=== PATIENT | female | born 1950 | race Caucasian/White ===

== ENCOUNTER → 2018-09-16 06:48 | Outpatient (CLI) | payer MEDICARE, OTHER, SELFPAY ==
--- NOTE | 2018-09-16 06:54 | ECHOCS_ITS ---
Reason For Study: Atypical Chest Pain Procedure This was a 2D Doppler, Color Flow transthoracic echocardiogram. The exam was of poor technical quality due to body habitus. The study was technically difficult. Contrast injection was performed. Exam performed in department. Left Ventricle Normal LV size. Left ventricular systolic function is normal. The estimated ejection fraction is 65 %. Diastolic function is indeterminate. No regional wall motion abnormalities noted. Right Ventricle Normal RV size. Normal systolic function. Atria Normal left atrium. Normal right atrium. No doppler evidence for ASD. Mitral Valve There is no mitral annular calcification. Normal mitral valve. Trivial mitral valve insufficiency. Tricuspid Valve Normal tricuspid valve. Trivial tricuspid valve insufficiency. Aortic Valve The aortic valve is not well visualized. Pulmonic Valve The pulmonic valve is not well visualized. Great Vessels The aortic root is not well visualized. Pericardium/Pleural No pericardial effusion. Medication 20 gauge I.V. with prn adaptor inserted into right arm. Diluted definity 6ml given slow IV push to enhance endocardial definition. MMode/2D Measurements & Calculations LVIDd: 3.8 cm IVSd: 1.6 cm LA dimension: 3.3 cm LVIDs: 2.6 cm LVPWd: 1.6 cm RVDd: 3.6 cm FS: 31.1 % LAV(MOD-sp4): 44.5 ml LA A4 area: 16.5 cm2 RA A4 area: 14.5 cm2 Time Measurements MV dec time: 0.22 sec Doppler Measurements & Calculations MV E max román: 67.2 cm/sec Lat Peak E' Román: 10.3 cm/sec Med Peak E' Román: 5.8 cm/sec MV A max román: 92.1 cm/sec E/E' lat: 6.5 E/E' med: 11.6 MV E/A: 0.73 MV V2 max: 105.9 cm/sec MV P1/2t max román: 95.3 cm/sec Ao V2 max: 112.6 cm/sec MV max P.5 mmHg MV P1/2t: 94.5 msec Ao max P.1 mmHg MV V2 mean: 55.4 cm/sec MV dec slope: 295.6 cm/sec2 Ao V2 mean: 74.4 cm/sec MV mean P.5 mmHg MVA(P1/2t): 2.3 cm2 Ao mean P.5 mmHg MV V2 VTI: 34.2 cm Ao V2 VTI: 25.8 cm LV V1 max: 85.3 cm/sec PA V2 max: 78.0 cm/sec LV V1 max P.9 mmHg LV V1 mean P.3 mmHg LV V1 mean: 52.3 cm/sec LV V1 VTI: 21.3 cm Interpretation Summary The study was technically difficult. Contrast injection was performed. Left ventricular systolic function is normal. The estimated ejection fraction is 65 %. Trivial mitral valve insufficiency. Trivial tricuspid valve insufficiency. Diastolic function is indeterminate. Ordering Physician: Lupe Calvo Referring Physician: Lupe Calvo Performed By: Mikey Danielle RCS
--- NOTE | 2018-09-16 15:50 | STRESSREP_ITS ---
Stress Test Report Date: 09/16/2018 Procedure: Exercise tolerance test/imaging study Indications: Chest pain Consent: Per the patient Procedure: The patient exercised on a Trevor protocol for 6 minutes completing Stage II achieving a peak heart rate of 153 bpm (98 % predicted maximal heart rate) with a peak blood pressure 7 mmHg and a peak MET capacity of 7 METs. The baseline ECG demonstrated sinus bradycardia. The peak exercise ECG demonstrated approximately 0.5-1.0 mm horizontal/upsloping ST segment depression in lead II with resolution towards baseline beginning less than 1 minute in recovery. There were no cardiac dysrhythmias pretest, during exercise, or recovery. The functional capacity was considered average. There was vague chest discomfort with spontaneous resolution in recovery. The examination was discontinued secondary to dyspnea. Impression: 1. Technically adequate (percent predicted maximal heart rate greater than 85%) exercise tolerance test 2. Peak exercise ECG M and straight and approximately 0.5-1.0 mm horizontal/upsloping ST segment depression in lead II with resolution towards baseline beginning less than 1 minute in recovery 3. There were no cardiac dysrhythmias pretest, during exercise, or recovery 4. Nuclear images pending Myocardial perfusion imaging study: Technique: The patient was injected with 14.2 mCi of technetium 99m Cardiolite and subsequently rest SPECT Cardiolite nuclear imaging was obtained in the horizontal long, vertical long, and short axis views. The patient exercised on a Trevor protocol for 6 minutes completing Stage II achieving a peak heart rate of 153 bpm (98 % predicted maximal heart rate) with a peak blood pressure 170/80 mmHg and a peak MET capacity of 7 METs. The patient was injected with 44.7 mCi of technetium 99m Cardiolite and subsequently stress SPECT Cardiolite nuclear imaging was obtained in the horizontal long, vertical long, and short axis views. A gated Cardiolite study at peak stress was obtained. Interpretation: Rest and stress SPECT Cardiolite nuclear imaging status post realignment, normalization, and attenuation correction, demonstrates the appearance at rest of diminished tracer uptake in portions of the mid to distal anterior, anterolateral, anteroseptal, and apical segments which appears to improve/normalize following stress. There is end systolic thickening and brightening. The gated Cardiolite study demonstrates myocardial thickening and inward wall motion. The reported LVEF is 70 %. Impression: 1. Rest and stress SPECT Cardiolite nuclear imaging demonstrate myocardial perfusion changes at rest which appear to improve/normalize following stress appearing compatible with shifting soft tissue attenuation/artifact with no myocardial perfusion changes considered diagnostic for associated stress-induced myocardial ischemia or previous myocardial injury/infarction. 2. The gated Cardiolite study reports an LVEF of 70 %. This note was generated with [employer] software. It may contain incorrect words, spelling, and punctuation that were not noted in checking the note before signing.
== END ==
PROVIDERS: Family Provider Internal Medicine; PCP Internal Medicine; Referring Provider Internal Medicine; Visit Provider Internal Medicine
DX: R07.89 Other chest pain (principal)
CPT/HCPCS: 78452; 93017; 93306; A9500; Q9957; A4216; C8929

== ENCOUNTER 2018-11-15 19:50 | Emergency (ER) | payer MEDICARE, OTHER, SELFPAY ==
[2018-11-15 19:51] VITALS: BP 166/89; PULSE 54; RESP 17; TEMP 36.6; O2SAT 96; BMI 40.9
[2018-11-15 20:54] LABS: Bacteria 0 SEEN /hpf (None Seen); Mucous, Urine 0 SEEN /hpf (<or=2+); Squamous Epithelial Cells - UA 0 SEEN /hpf (5-10); White Blood Cells 0 SEEN /hpf (0-5)
[2018-11-15 20:56] LABS: Color, Urine Red (Yellow); Glucose, Dipstick Normal (Normal); Ketone-Dipstick 5 mg/dl (Negative); Leukocyte Esterase-Dipstick 500 /ul (Negative); Nitrite-Dipstick Negative (Negative); Occult Blood-Urine 250 /ul (Negative); Protein-Dipstick 100 mg/dl (Negative); Specific Gravity, Urine 1.015 (1.002-1.030); Urine Bilirubin Dipstick Negative (Negative); Urine Clarity Cloudy (Clear); Urine Urobilinogen Normal (Normal); Urine pH 6.5 (5.0 - 8.0)
[2018-11-15 21:11] LABS: Red Blood Cells-Urine > 100 SEEN /hpf (0-5)
[2018-11-15] MEDS: Nitrofurantoin Macrocrystals 100 MG Capsule PO ×2 (21:52→22:12)
--- NOTE | 2018-11-15 22:04 | ED.VISSUMM ---
- ER Visit Summary Date of Service: 11/15/18 Chief Complaint: Blood in urine History of Present Illness: The patient is a 68 F presents to the emergency department blood in urine. Patient states that she had a little bit of suprapubic fullness today. She states she got home from work and felt the urge to urinate. She states when she did urinate, she noted some blood. States that she urinated 3 times and there was still blood. She feels like she cannot fully empty her bladder. She denies any fevers or chills. She denies any flank pain. She denies any nausea or vomiting. Physical Examination: Vital signs reviewed General: Well-nourished, well-developed Head: Normocephalic, atraumatic Eyes: Pupils equal and reactive, extraocular muscles intact Neck, supple, no lymphadenopathy Heart: Regular rate and rhythm Respiratory: No distress, clear bilaterally Abdomen: Soft, nontender, nondistended, no peritoneal signs Back: Nontender Extremities: Nontender, no edema, no cords Skin: Normal color no rash Neuro: Alert and oriented, no focal or lateralizing deficits Test Results: [] Emergency Department Course and Treatment: Urine was obtained in triage. The patient does have evidence of acute cystitis. There is not significant blood. I do feel that this is likely hemorrhagic cystitis. She has no flank pain. She is no fevers or chills. Culture was added. The patient will be treated with Macrobid. She was counseled concerning symptoms and reasons to return. She will be discharged home. Treatment Plan: [] Disposition: Discharge Impression: 1. Acute hemorrhagic cystitis This note was generated with [employer] dictation software. It may contain incorrect words, spelling, and punctuation that were not noted in review of the chart prior to signing ED Disposition - Plan for ED Patient: Chief Complaint: Complaint Instructions: ED UTI Cystitis Female Prescriptions: Nitrofurantoin Macrocrystals [Macrobid] 100 mg PO Q12 #14 cap Referrals: Lupe Calvo DO [Primary Care Provider] -
[2018-11-15 22:14] VITALS: PULSE 55; RESP 16
--- OUTSIDE RECORDS SUMMARY | 2019-02-17 06:30 | XMS RPT_ITS ---
:1950 Author Organization OHIP Care Team Providers Name Role Phone Lupe Calvo DO Attending Unavailable Kelly Mercedes MD Referring Unavailable Lupe Calvo DO Consulting Unavailable Lupe Calvo Primary Care Unavailable Anjum Shook Attending Unavailable Israel Grajeda Attending Unavailable Lupe Calvo Referring Unavailable Lupe Calvo Attending Unavailable Lupe Calvo Referring Unavailable Lupe Calvo Primary Care Unavailable Maggy Mehta Attending Unavailable Carolynn Srivastava Referring Unavailable Lupe Calvo Attending Unavailable Carolynn Srivastava Primary Care Unavailable Purpose Purpose PROBLEMS PROBLEMS DATE TYPE CONDITION / CODE ATTENDING STATUS SOURCE 12/14/2018 Unknown Z78.0 - Umesh Active Vanessa Asymptomatic [facility] menopausal state / Hospital Z78.0(ICD-10) Repository 12/14/2018 Unknown Z12.31 - Encounter Chang Calvo for screening [facility] mammogram for Hospital malignant neoplasm Repository of breast / Z12.31(ICD-10) 11/11/2018 Unknown R07.89 - Other [place], [place] Active [place] chest pain / Community R07.89(ICD-10) Hospital Repository 09/22/2018 Unknown E11.9 - Type 2 Janine, Active Vanessa diabetes mellitus [facility] without Hospital complications / Repository E11.9(ICD-10) 09/22/2018 Unknown L23.7 - Allergic Janine, Active Vanessa contact dermatitis [facility] due to plants, Hospital except food / Repository L23.7(ICD-10) 09/22/2018 Unknown I10 - Essential Janine Active Vanessa (primary) [facility] hypertension / Hospital I10(ICD-10) Repository PROCEDURES PROCEDURES No Procedure Records FoundVITAL SIGNS VITAL SIGNS No Vital Signs Records FoundRESULTS RESULTS SCREENING MAMM (CAD), Observed: 12/14/2018 Status: F Source: [place] BIL 10:06 AM [facility] HOSPITAL REPOSITORY [facility] Imaging Services [address] [place] [address] SCREENING MAMM (CAD), BILAT MR#: [id number] Acct: [id number] Name: KELLIE ALANIS Rep #: [id number] : 1950 F 68 From: Sergio Waite MD PCP: Carolynn Srivastava NP Status: REG CLI Study: SCREENING MAMM (CAD), BILAT Date of Exam: 12/14/18 Exam# [id number] Ordering Dr: Lupe Calvo DO MAMMOGRAPHY - BILATERAL SCREENING REASON FOR EXAM: Female, 68 years old. Routine annual screening examination. PERTINENT HISTORY: Mother with breast cancer. Remote left excisional breast biopsy. TECHNIQUE: Digital bilateral breast dhaval (3D mammographic acquisition) in the CC and MLO projections. 2-D mediolateral oblique (MLO) and craniocaudad (CC) views of both breasts were obtained. CAD: Full Field Digital Mammography with Computer Added Detection was performed. COMPARISON: No comparison mammograms available at this time. If any prior films become available, an addendum to this report can be generated. FINDINGS: Breast Composition: The breasts are almost entirely fatty. There are no dominant masses or suspicious calcifications. No other significant abnormalities are identified. BI/SCREENING MAMM (CAD), BILAT IMPRESSION: Negative screening mammogram. Yearly followup mammogram recommended. (A) ASSESSMENT CATEGORY: BIRADS Category 1: Negative. A letter regarding these results will be sent to the patient by the facility within 30 days. Approximately 10% of breast cancers are not detected by mammography. A normal mammogram should not delay biopsy of a clinically suspicious abnormality. [id number] Electronically Signed: Sergio Waite MD at 11:39 EST Tel [phone], Service support , CC: Carolynn Srivastava NP; Lupe Calvo DO Postdoctoral Research Fellow: Signed DEXA BONE DENSITY Observed: 12/14/2018 Status: F Source: [place] STUDY 10:06 AM [facility] REPOSITORY [facility] Imaging Services [address] [place] [address] Dexa Bone Density Study MR#: [id number] Acct: [id number] Name: KELLIE ALANIS Rep #: [id number] : 1950 F 68 From: Sergio Waite MD PCP: Carolynn Srivastava NP Status: REG CLI Study: Dexa Bone Density Study Date of Exam: 12/14/18 Exam# [id number] Ordering Dr: Lupe Calvo DO STUDY: DUAL ENERGY X-RAY ABSORPTIOMETRY / DXA REASON FOR EXAM: Female, 68 years old. Early menopause. Loss of height. TECHNIQUE: Bone Mineral Density (BMD) measurements of lumbar spine and bilateral hips were obtained. COMPARISON: None. FINDINGS: Lumbar Spine (L1-L4): g/cm2 (1.242) / T-score (0.4) / Z-score (2.0) Findings are suggestive of normal bone density with a low fracture risk. Left Femur Total: g/cm2 (0.907) / T-score (-0.8) / Z- score (0.4) Left Femoral Neck: g/cm2 (0.751) / T-score (-2.1) / Z- score (-0.6) Right Femur Total: g/cm2 (0.972) / T-score (-0.3) / Z- score (1.0) Right Femoral Neck: g/cm2 (0.783) / T-score (-1.8) / Z-score (10.3) BD/Dexa Bone Density Study IMPRESSION: The patient is considered osteopenic as outlined below according to World Amadeo Organization (WHO) criteria with a moderate fracture risk. Reference Information: The T-score is the number of standard deviations above or below the standard which is normal for young adults at their peak bone mineral density. The World Health Organization (WHO) interprets the T-scores as follows: Above -1 Normal bone density Between -1 and -2.5 Osteopenia Equal to / or below -2.5 Osteoporosis As a practical clinical guideline, osteopenia may be graded as follows: Mild -1 through -1.5 Moderate -1.6 through -2.0 Severe -2.1 through -2.4 The Z-score is the number of standard deviations above or below age-matched controls. A Z-score of less than -1.5 would be considered abnormal. References: 1. NIH Osteoporosis and Related Bone Diseases http://www.osteo.org 2. International Society for Clinical Densitometry http://www.iscd.org 3. National Osteoporosis Foundation http://www.nof.org Electronically Signed: Sergio Waite MD at 15:52 EST Tel [phone], Service support , CC: Carolynn Srivastava SECURITY SPECIALIST; Lupe Calvo DO Postdoctoral Research Fellow: Signed EMERGENCY DEPARTMENT Observed: 11/15/2018 Status: F Source: [place] SUMMARY 10:39 PM [facility] REPOSITORY [facility] Medical Records Department [address] [place] [address] Emergency Department Summary 11/15/18 2204 MR#: [id number] Acct: [id number] Name: KELLIE ALANIS Rep #: [id number] : 1950 68 From: Anjum Shook MD PCP: Lupe Calvo DO Status: DEP ER - ER Visit Summary Date of Service: 11/15/18 Chief Complaint: Blood in urine History of Present Illness: The patient is a 68 F presents to the emergency department blood in urine. Patient states that she had a little bit of suprapubic fullness today. She states she got home from work and felt the urge to urinate. She states when she did urinate, she noted some blood. States that she urinated 3 times and there was still blood. She feels like she cannot fully empty her bladder. She denies any fevers or chills. She denies any flank pain. She denies any nausea or vomiting. Physical Examination: Vital signs reviewed General: Well-nourished, well-developed Head: Normocephalic, atraumatic Eyes: Pupils equal and reactive, extraocular muscles intact Neck, supple, no lymphadenopathy Heart: Regular rate and rhythm Respiratory: No distress, clear bilaterally Abdomen: Soft, nontender, nondistended, no peritoneal signs Back: Nontender Extremities: Nontender, no edema, no cords Skin: Normal color no rash Neuro: Alert and oriented, no focal or lateralizing deficits Test Results: [] Emergency Department Course and Treatment: Urine was obtained in triage. The patient does have evidence of acute cystitis. There is not significant blood. I do feel that this is likely hemorrhagic cystitis. She has no flank pain. She is no fevers or chills. Culture was added. The patient will be treated with Macrobid. She was counseled concerning symptoms and reasons to return. She will be discharged home. Treatment Plan: [] Disposition: Discharge Impression: 1. Acute hemorrhagic cystitis This note was generated with Web and Rank dictation software. It may contain incorrect words, spelling, and punctuation that were not noted in review of the chart prior to signing ED Disposition - Plan for ED Patient: Chief Complaint: Complaint Instructions: ED UTI Cystitis Female Prescriptions: Nitrofurantoin Macrocrystals [Macrobid] 100 mg PO Q12 #14 cap Referrals: Lupe Calvo, DO [Primary Care Provider] - What to do if you have Problems For any increased pain, shortness of breath, bleeding, nausea or vomiting, chest pain, or any unexpected problems, contact your Primary Care Provider. Call [facility] ([phone]) or report to the closest Emergency Room. Call 911 if necessary. 11/15/18 7310 <Electronically signed by Anjum Shook MD> Date Anjum Shook MD Cosigner Signature (If Indicated): Date CC: Lupe Calvo DO URINALYSIS, COMPLETE Collected: 11/15/2018 Status: F Source: [place] 8:44 PM [facility] REPOSITORY Order Comment: Order Date: 11/15/18 COLOR OF URINE MAY AFFECT DIPSTICK RESULTS. How was Urine Obtained? CLEAN CATCH TYPE CODE TESTS RESULT OUT OF RANGE REFERENCE UNITS LAB L400.3000 Yellow COLOR Normal Red LAB L400.3050 Clear Normal CLARITY Cloudy LAB L400.3200 Normal mg/dl Normal GLUCOSE, UR Normal LAB L400.3300 Negative mg/dL Normal BILIRUBIN URINE Negative LAB L400.3400 Negative mg/dl High 5 KETONE UR LAB L400.3465 1.002-1.030 Normal SP.GR. DIPSTX 1.015 LAB L400.3550 5.0 - 8.0 pH UR Normal 6.5 LAB L400.3600 Negative mg/dl High PROT DIPSTX 100 LAB L400.3700 Normal mg/dl Normal UROBILI Normal LAB L400.3750 Negative Normal NITRITE UR Negative LAB L400.3780 Negative /ul High OCCULT BLOOD-UR 250 LAB L400.3800 Negative /ul High LEUK ESTERASE 500 LAB L400.4050 0-5 /hpf WBC 0 Normal SEEN LAB L400.4100 0-5 /hpf > Normal RBC-UA 100 SEEN Result Comment: Microscopic field is filled. Other elements may be obscured. LAB L400.4150 5-10 /hpf Normal SQUAM EPI 0 SEEN LAB L400.4300 None Seen /hpf Normal BACTERIA 0 SEEN LAB L400.4350 <or=2+ /hpf Normal MUCUS, URINE 0 SEEN Performed By: #### L400.0001 #### [facility] [address] [place], [place], [id number] Observed: 11/15/2018 Status: F Source: [place] CULTURE, URINE 8:44 PM [facility] REPOSITORY Order Date: 11/15/18 Urine Culture ORGANISM 1: Presumptive E. coli [place] Count >100,000 Presumptive E. coli: REACTION Amoxacillin/Clavulanic Acid $ 4 S Ampicillin $ >=32 R Ampicillin/Sulbactam $ 16 I Cefazolin $ <=4 S Cefepime $ <=1 S Ceftriaxone $ <=1 S Ciprofloxacin $ <=0.25 S ESBL - Ertapenim $$$ <=0.5 S Gentamicin $ >=16 R Imipenem *NF <=0.25 S Levofloxacin $ <=0.12 S Nitrofurantoin $ <=16 S Piperacillin/Tazobactam $$ <=4 S Tobramycin $ 4 S Trimethoprim/Sulfametho $ >=320 R (NF) indicates non-formulary drug at [facility]. Approval by Infectious Disease Specialist required before non-formulary drugs may be ordered and/or dispensed. Performed By: #### M100.0650 #### [facility] [address], [address] ECHO, COMPLETE W/ Observed: 09/16/2018 Status: F Source: [place] CONTRAST 9:17 PM [facility] REPOSITORY [facility] Cardiovascular [place] [address] Echo Complete W/ Contrast 09/16/18 0846 MR#: [id number] Acct: [id number] Name: KELLIE ALANIS Rep #: [id number] : 1950 67 From: Israel Grajeda MD Attending Dr: Lupe Calvo DO Status: REG CLI Ordering Dr: Lupe Calvo DO Date: 09/16/18 Location: CVS Sex: F C Admitted: Reason For Study: Atypical Chest Pain Procedure This was a 2D Doppler, Color Flow transthoracic echocardiogram. The exam was of poor technical quality due to body habitus. The study was technically difficult. Contrast injection was performed. Exam performed in department. Left Ventricle Normal LV size. Left ventricular systolic function is normal. The estimated ejection fraction is 65 %. Diastolic function is indeterminate. No regional wall motion abnormalities noted. Right Ventricle Normal RV size. Normal systolic function. Atria Normal left atrium. Normal right atrium. No doppler evidence for ASD. Mitral Valve There is no mitral annular calcification. Normal mitral valve. Trivial mitral valve insufficiency. Tricuspid Valve Normal tricuspid valve. Trivial tricuspid valve insufficiency. Aortic Valve The aortic valve is not well visualized. Pulmonic Valve The pulmonic valve is not well visualized. Great Vessels The aortic root is not well visualized. Pericardium/Pleural No pericardial effusion. Medication 20 gauge I.V. with prn adaptor inserted into right arm. Diluted definity 6ml given slow IV push to enhance endocardial definition. MMode/2D Measurements AND Calculations LVIDd: 3.8 cm IVSd: 1.6 cm LA dimension: 3.3 cm LVIDs: 2.6 cm LVPWd: 1.6 cm RVDd: 3.6 cm FS: 31.1 % LAV(MOD-sp4): 44.5 ml LA A4 area: 16.5 cm2 RA A4 area: 14.5 cm2 Time Measurements MV dec time: 0.22 sec Doppler Measurements AND Calculations MV E max román: 67.2 cm/sec Lat Peak E' Román: 10.3 cm/sec Med Peak E' Román: 5.8 cm/sec MV A max román: 92.1 cm/sec E/E' lat: 6.5 E/E' med: 11.6 MV E/A: 0.73 MV V2 max: 105.9 cm/sec MV P1/2t max román: 95.3 cm/sec Ao V2 max: 112.6 cm/sec MV max P.5 mmHg MV P1/2t: 94.5 msec Ao max P.1 mmHg MV V2 mean: 55.4 cm/sec MV dec slope: 295.6 cm/sec2 Ao V2 mean: 74.4 cm/sec MV mean P.5 mmHg MVA(P1/2t): 2.3 cm2 Ao mean P.5 mmHg MV V2 VTI: 34.2 cm Ao V2 VTI: 25.8 cm LV V1 max: 85.3 cm/sec PA V2 max: 78.0 cm/sec LV V1 max P.9 mmHg LV V1 mean P.3 mmHg LV V1 mean: 52.3 cm/sec LV V1 VTI: 21.3 cm Interpretation Summary The study was technically difficult. Contrast injection was performed. Left ventricular systolic function is normal. The estimated ejection fraction is 65 %. Trivial mitral valve insufficiency. Trivial tricuspid valve insufficiency. Diastolic function is indeterminate. Ordering Physician: Lupe Calvo Referring Physician: Lupe Calvo Performed By: Mikey Danielle RCS 09/16/182115 Date Israel Grajeda MD CC: Lupe Calvo DO Date Dictated: 09/16/18845 Date Transcribed: 09/16/182115 Postdoctoral Research Fellow: Signed STRESS REPORT Observed: 09/16/2018 Status: F Source: [place] 3:50 PM [facility] REPOSITORY [facility] Cardiovascular Services [address] [place] [address] MR#: [id number] Acct: [id number] Name: KELLIE ALANIS Rep #: [id number] : 1950 67 From: Israel Grajeda MD Primary Care: Lupe Calvo DO Status: REG CLI Ordering Dr: Sex: F C Stress Test Report Date: 09/16/2018 Procedure: Exercise tolerance test/imaging study Indications: Chest pain Consent: Per the patient Procedure: The patient exercised on a Trevor protocol for 6 minutes completing Stage II achieving a peak heart rate of 153 bpm (98 % predicted maximal heart rate) with a peak blood pressure 7 mmHg and a peak MET capacity of 7 METs. The baseline ECG demonstrated sinus bradycardia. The peak exercise ECG demonstrated approximately 0.5-1.0 mm horizontal/upsloping ST segment depression in lead II with resolution towards baseline beginning less than 1 minute in recovery. There were no cardiac dysrhythmias pretest, during exercise, or recovery. The functional capacity was considered average. There was vague chest discomfort with spontaneous resolution in recovery. The examination was discontinued secondary to dyspnea. Impression: 1. Technically adequate (percent predicted maximal heart rate greater than 85%) exercise tolerance test 2. Peak exercise ECG M and straight and approximately 0.5- 1.0 mm horizontal/upsloping ST segment depression in lead II with resolution towards baseline beginning less than 1 minute in recovery 3. There were no cardiac dysrhythmias pretest, during exercise, or recovery 4. Nuclear images pending Myocardial perfusion imaging study: Technique: The patient was injected with 14.2 mCi of technetium 99m Cardiolite and subsequently rest SPECT Cardiolite nuclear imaging was obtained in the horizontal long, vertical long, and short axis views. The patient exercised on a Trevor protocol for 6 minutes completing Stage II achieving a peak heart rate of 153 bpm (98 % predicted maximal heart rate) with a peak blood pressure 170/80 mmHg and a peak MET capacity of 7 METs. The patient was injected with 44.7 mCi of technetium 99m Cardiolite and subsequently stress SPECT Cardiolite nuclear imaging was obtained in the horizontal long, vertical long, and short axis views. A gated Cardiolite study at peak stress was obtained. Interpretation: Rest and stress SPECT Cardiolite nuclear imaging status post realignment, normalization, and attenuation correction, demonstrates the appearance at rest of diminished tracer uptake in portions of the mid to distal anterior, anterolateral, anteroseptal, and apical segments which appears to improve/normalize following stress. There is end systolic thickening and brightening. The gated Cardiolite study demonstrates myocardial thickening and inward wall motion. The reported LVEF is 70 %. Impression: 1. Rest and stress SPECT Cardiolite nuclear imaging demonstrate myocardial perfusion changes at rest which appear to improve/normalize following stress appearing compatible with shifting soft tissue attenuation/artifact with no myocardial perfusion changes considered diagnostic for associated stress-induced myocardial ischemia or previous myocardial injury/infarction. 2. The gated Cardiolite study reports an LVEF of 70 %. This note was generated with Emerald [employer] software. It may contain incorrect words, spelling, and punctuation that were not noted in checking the note before signing. 09/16/18 6025 <Electronically signed by Israel Grajeda MD> Date Israel Grajeda MD CC: Lupe Calvo DO Date Dictated: 09/16/181545 Date Transcribed: 09/16/181545 Postdoctoral Research Fellow: PM Signed URGENT CARE VISIT Observed: 07/30/2018 Status: F Source: [place] REPORT 2:39 PM [facility] REPOSITORY [facility] [address] [place] [address] [address] [place] [address] OFFICE VISIT Date of Service: 07/30/18 MR#: [id number] Acct: [id number] Name: KELLIE ALANIS Rep #: [id number] : 1950 Provider: CIRA Mehta Age/Sex: 67/F Location: [facility] Status: Signed Intake Vital Signs07/30/18 Height 5 ft Intake Visit Reasons: POISON DONNA Chief Complaint: poison donna Allergies No Known Allergies Allergy (Unverified 07/30/18 10:58) Medications Unobtainable [Unobtainable] 07/30/18 [History Confirmed 07/30/18] Nurse's Note: Pt takes meds for HTN and Diabetes but did not have the names of them. She reports she has been out of her BP meds x 2-3 days. PFSH Medical History Arthritis (Acute) Diabetes (Acute) Knee pain (Acute) Limb weakness (Acute) Shoulder pain (Acute) HTN (hypertension) (Chronic) Social History Smoking Status: Current every day smoker alcohol intake: never HPI HPI Chief Complaint: poison donna Details: KELLIE ALANIS, is a 67 F, with uncontrolled hypertension(out off water pill so borrowing some off her husbands...),and stated controlled diabetes ( no meds required x several months) who presents to the office today for itchy rash left forarm antecubital stating she was in contact with it a week ago and it just keeps getting worse. She is requesting a shot of cortisone and pills. Her BP taken in the room is 180/98. ROS Const Constitutional: No body ache, chills, fatigue, fever(s), night sweats, change in appetite, weakness, frequent falls, headache(s) or excessive sweating Eyes Eyes: No visual disturbances, light sensitivity, eye pain or change in vision ENT ENT: Positive for other (NIDDM stated on one pill ? name and not needed in months. ); no ear pain, ear discharge, hearing loss, dizziness/vertigo, nasal discharge, difficulty swallowing, sore throat, neck pain or headache(s) Resp Respiratory: No cough, chest congestion, hemoptysis, shortness of breath or wheezing Cardio Cardiology: Positive for other (hypertension, uncontrolled); no shortness of breath, irregular heart rhythm, lightheadedness, chest pain at rest, chest pain with exertion, generalized swelling, orthopnea, palpitations or excessive sweating Gastro GI: No difficulty swallowing, abdominal pain, bloating, change in bowel habits, diarrhea, blood in stool, Black,tarry stools, nausea/dyspepsia or vomiting Genitourinary-Female: No burning urination, urinary frequency, urinary urgency, blood in urine or Vaginal Itching Musc Musculoskeletal: No joint pain, back pain, numbness, tingling or neck pain Skin Skin: Positive for rash (see HPI); no lesions or itching Neuro Neurology: No visual disturbances, numbness, tingling, abnormal speech, confusion, unsteady gait/balance, dizziness, weakness, frequent falls, loss of vision, headache(s) or memory loss Psych Psychiatric: No change in appetite, No confusion, No memory loss, No anxiety, No depression, No panic attacks, No hallucinations, No Thoughts of harming yourself/Others Endo Endocrine: Positive for other (NIDDM stated on one pill ? name and not needed in months. ); no fatigue, cold intolerance, excessive sweating, flushing, heat intolerance or increased thirst/drinking Aller/Imm Allergy/Immunologic: No wheezing, itchy eyes, food intolerance, seasonal allergy symptoms or hives Rolando/Lymp Hematologic/Lymphatic: No easy bruising Exam Const General: cooperative, no acute distress Nutritional Appearance: obese Orientation: alert, oriented x3 [facility] Head: normal to inspection, normocephalic Ears: hearing grossly normal bilaterally, external ears normal Nose: no nasal discharge Face and sinus: normal facial exam Eyes General: appearance normal, both eyes and all related structures Eyelids: eyelids normal Conjunctivae: conjunctivae normal Sclera: sclerae normal EOM: EOM intact bilaterally Neck Neck: normal visual inspection, no meningeal signs, supple, no lymphadenopathy Carotids: no bruits Lymphatic: no lymphadenopathy noted Chest Chest palpation AND inspection: normal inspection of the chest Resp Effort AND Inspection: normal respiratory effort, able to speak in complete sentences, symmetric chest movement, no audible wheezes, no cough, not labored, no respiratory distress Auscultation: Bilateral: Clear to Auscultation Cardio Rate: regular rate Rhythm: regular rhythm Heart Sounds: S1 normal, S2 normal GI Inspection: normal to inspection Musc Musculoskeletal: No joint tenderness or joint redness Skin Rashes: rashes noted (left antecubital, papulovesicular, c/w contact dermatitis) Neuro General: alert, oriented x3, moves all extremities Speech: speech normal Motor: muscle tone normal throughout Sensory Exam: no sensory deficits noted Extrem General: normal exam except as noted (rash left antecubiltal as described) Psych Appearance: grossly normal, well kempt Mental Status: mental status grossly normal Affect: normal affect Speech and Movement: speech and movement normal Attitude: cooperative Thought Process: normal Thought Content: normal Judgment: fair Results [facility] Office Urine Color YELLOW Last Edit by Jana Browning on 07/30/18 11:16 Office Urine Clarity Clear Last Edit by Jana Browning on 07/30/18 11:16 Assessment AND Plan Problems 1. Poison donna L23.7 2. Essential hypertension I10 3. Diabetes type 2, controlled E11.9 Plan Patient directed to ER for management of her Hypertention prior to taking a MDP called to her pharmacy. Explained this would elevate her BP more. (She has been out of medication a week and states she cant reach her DR for refills so occasionally is taking her husbands water pill) UA was done to confirm no glucosuria. MDP and Trimcinolone order given verbally to pharmacist. Both he and patient are aware she may pickling solution maker the triamcinolone cream now, but NOT to pickling solution maker the MDP until tomorrow, once BP under controll. Patient state she will go to the ER form here for her markedly elevated BP. Orders Orders: Coding Level of Care Code Off vis,new,level 3 Diagnoses Poison donna L23.7 Essential hypertension I10 Hypertension type: essential hypertension Diabetes type 2, controlled E11.9 Diabetes mellitus complication status: without complication 07/30/18 1439 <Electronically signed by Maggy DENIS> Date Maggy DENIS Cosigner Signature: Date (if applicable) CC: ALLERGIES ALLERGIES DATE TYPE / CODE NAME / CODE REACTION SEVERITY SOURCE 11/15/2018 Drug No Known Unknown [facility] Allergy/4160 Allergies/F00 Hospital 42517(SNOMED [id number](RXNOR Repository CT) M) ENCOUNTERS ENCOUNTERS ADMIT/DISCHARGE ACCOUNT ADMITTING ENCOUNTER LOCATION SOURCE NUMBER CLASS 12/15/2018 [id number] Ambulatory Building:[facility] OHIP Practices Repository 12/14/2018 [id number] Ambulatory [place] 1 [facility] ing:OPBD Repository 11/15/2018/ [id number] Emergency [place] 8 4 [facility] ing:ED Repository 09/16/2018 [id number] Ambulatory BMSBuilding:W [place] 3 [facility] Repository 09/16/2018 [id number] Ambulatory [place] 8 [facility] ing:CVS Repository 07/30/2018/ [id number] Ambulatory BMSBuilding:B [place] 8 0 [facility] Repository FUNCTIONAL STATUS FUNCTIONAL STATUS No Functional Status Records FoundEQUIPMENT EQUIPMENT No Equipment Records FoundPAYERS PAYERS ENCOUNTER GUARANTOR PAYER SUBSCRIBER SOURCE 12/15/2018 Kellie Santamaria Primary Kellie Santamaria OHIP Practices RaffDOB: Insurance:Humana/Medi RaffDOB: Repository [id number] W care adv planPolicy [id number] [address] Number: [address] [place], [id number] [address]Vxx: (453) Date:7977-28-62Uxuz 19968Cdx: () Name:NPO Gricelda [phone] () [address]Vdcmmjrqf, [place] [address]SV: 12/15/2018 Secondary Katelin RaffDOB: OHIP Practices Insurance:AultcarePol [id number] Repository icy Number: [address] [id number] [place], [place] Date:2008-01-28 93405Vhl: [phone] 5838-03-55Gzrm [id number] (HP) Name:[facility] [address], [place] [id number]: 12/15/2018 Tertiary Katelin RaffDOB: OHIP Practices Insurance:Medical [id number] Repository [facility] [address] Number: [place], [place] [id number] [id number]: (257) Date: 126 () 9171-06-67Eqil Name:[facility] [address], [place] [id number]: 12/15/2018 Tertiary Kellie Santamaria OHIP Practices Insurance:MedicarePol RaffDOB: Repository icy Number: [id number] [address] Date:2813[place]37-[place] Name:[facility] Gricelda [address]Hso: [id number], [place] ~(3 [address]NR: [phone] (HP) [phone] 12/15/2018 Tertiary Kellie Santamaria OHIP Practices Insurance:[place] RaffDOB: Repository [facility] [id number] Number: [address] [id number] [place], [place] Date:2017-11-29 [address]Dfs: 5749-17-49Ciet ~(3 Name:[id number] (HP) [place] [address]JW: 12/14/2018 KATELIN Jung Primary KELLIE Santamaria [place] [id number] Insurance:HUMANA RAFFDOB: [facility] MEDICARE [facility] [id number] Number: Repository [id number]: [phone] [id number] (HP) Date:9259-80-33OU[address] [address]DB: 12/14/2018 Secondary NOT GIVENUNK [place] Insurance:SELF PAY [facility] Number: Effective Repository Date:2018-09-13 11/15/2018 KATELIN Jung Primary KELLIE Mendez [id number] Insurance:MEDICARE RAFFDOB: Community BENNIE PART A [facility] [id number], [place] Number: Repository [id number]: 330 [id number] () Date:2018-11-15 11/15/2018 Secondary NOT GIVENUNK [place] Insurance:SELF PAY [facility] Number: Effective Repository Date:2018-11-15 09/16/2018 KATELIN Jung Primary KELLIE Mendez [id number] Insurance:MEDICARE RAFFDOB: Community BENNIE PART A [facility] [id number], [place] Number: Repository [id number]: 330 [id number] () Date:2018-08-24 09/16/2018 Secondary KELLIE Santamaria [place] Insurance:UNITED RAFFDOB: [facility] [id number] Hospital Number: Effective Repository Date:2018-09-16 09/16/2018 Tertiary NOT GIVENUNK [place] Insurance:SELF PAY [facility] Hospital Number: Effective Repository Date:2018-09-16 09/16/2018 KATELIN Jung Primary KELLIE Chapaoster [id number] Insurance:MEDICARE RAFFDOB: Community BENNIE PART A [facility] [id number], [place] Number: Repository [address]Rtz: 330 [id number] () Date:2018-08-24 09/16/2018 Secondary KELLIE M [place] Insurance:MUTUAL OF [facility] [id number] Hospital Effective Repository Date:3855-54-98[facility] [place] [address]UD: 09/16/2018 Tertiary NOT GIVENUNK [place] Insurance:SELF PAY [facility] Number: Effective Repository Date:2018-08-24 07/30/2018 KATELIN Jung Primary KELLIE Mendez [id number] Insurance:MEDICARE RAFFDOB: [facility] PART A [facility] [id number], [place] Number: Repository [id number]: [phone] [id number] 00 () Date:2018-07-30 07/30/2018 Secondary KELLIE Mendez Insurance:MUTUAL OF RAFFDOB: [facility] Number: [id number] Hospital [id number] Repository Date:9112-66-37ULONDP [place] [address]GU: 07/30/2018 Tertiary NOT GIVENUNK [place] Insurance:SELF PAY [facility] Number: Effective Repository Date:2018-07-30 SOCIAL HISTORY SOCIAL HISTORY No Social History Records FoundFAMILY HISTORY FAMILY HISTORY No Family History Records FoundADVANCE DIRECTIVES ADVANCE DIRECTIVES No Advanced Directives Records FoundINFORMATION SOURCE INFORMATION SOURCE DATE CREATED AUTHOR AUTHOR'S ORGANIZATION 12/22/2018 [facility]
--- OUTSIDE RECORDS SUMMARY | 2019-02-17 06:30 | XMS RPT_ITS | Continuity of Care Document ---
:1950 Author Organization [facility] Address [facility] [address] [place] [address] Phone Care Team Providers Name Role Phone Lupe Calvo DO Unavailable Emely Whitlock MD Unavailable Dr. Song Ledesma Unavailable Kelly Mercedes MD Unavailable Janay Murry LPN Unavailable Unavailable Yesy Ceja Unavailable Unavailable Unavailable Unavailable Problems Name Dates Details Arthritis (M19.90, 716.90) Comments: avoid nsaids Status: Active Atypical chest pain (R07.89, 786.59) Status: Active Bladder stone (N21.0, 594.1) Comments: only given 2 days ketolorac with little relief, will redose torodol and treat as if UTI Status: Active BMI 39.0-39.9,adult (Z68.39, V85.39) Status: Active Carotid bruit (R09.89, 785.9) Status: Active Colon cancer screening (Renamed from Encounter for screening for malignant neoplasm of colon) (Z12.11, V76.51) Status: Active CTS (carpal tunnel syndrome) (G56.00, 354.0) Comments: Pt does not want to have surgical intervention at this timeDiscussed nerve conduction, pt does not want intervention if need to be off work Status: Active Current nonsmoker (Renamed from Current non-smoker) (Z78.9, V49.89) Status: Active Depression (F32.9, 311) Comments: mother in law has been living with them for last 19 years, and she has basically taken over the house and her , stress at work, patient just feels hopeless Status: Active Diabetes type 2, controlled (E11.9, 250.00) Comments: right now off meds did loose wsome weigh tnot get more off talkabout vitctoza would have to supply by samples Status: Active Dysuria (R30.0, 788.1) Status: Active Encounter for annual general medical examination with abnormal findings in adult (Z00.01, V70.0) Status: Active Encounter for screening mammogram for breast cancer (Renamed from Encounter for screening mammogram for malignant neoplasm of breast) (Z12.31, V76.12) Status: Active Hypercholesteremia (E78.00, 272.0) Status: Active Hypertension (I10, 401.9) Comments: lot of stress at workBP at home:180/87, Do at [employer] Status: Active Influenza vaccination declined (Renamed from Refused influenza vaccine) (Z28.21, V64.06) Status: Active Non morbid obesity, unspecified obesity type (E66.9, 278.00) Comments: pt losoign weight talk about GIOVANI not able to afford test. eating les. talk about contrave. Status: Active Nutritional counseling (Z71.3, V65.3) Status: Active Paresthesia (R20.2, 782.0) Comments: vs fibromyalgiaand carpel tunnelWill send to PT for fibromyalgia Status: Active Postmenopausal (Renamed from Postmenopausal status) (Z78.0, V49.81) Status: Active Pregnancies () Comments: 2 Status: Active Protrusion of intervertebral disc of lumbosacral region (M51.27, 722.10) Comments: pt declined physical therapy Status: Active Sinusitis, bacterial (J32.9, 473.9) Status: Active Uncontrolled type 2 diabetes mellitus (E11.65, 250.02) Status: Active Unspecified Diagnosis Status: Active URI (upper respiratory infection) (J06.9, 465.9) Status: Active Vaginal Delivery Comments: Status: Active Medications Name Dates Details HydroCHLOROthiazide 25 MG Oral Tablet 1 Tablet daily for 30 days Quantity: 30 {Tablet} Refills: 4 Ordered:02-Aug-2018 UmeshBobbi ellis DO, DO, Kathleen Start : 02-Aug-2018 Active Macrobid 100 MG Oral Capsule 1 (one) Capsule Capsule bid for 0 days Quantity: 20 {Capsule} Refills: 0 Ordered:30-Aug-2018 Janay Murry LPN Start : 30-Aug-2018 Active MetFORMIN HCl ER 500 MG Oral Tablet Extended Release 24 Hour 1 (one) Tablet bid for 30 days Quantity: 60 {Tablet} Refills: 3 Ordered:24-Oct-2018 Bobbi Calvo DO, DO, Kathleen Start : 24-Oct-2018 Active Augmentin 875-125 MG Oral Tablet 1 (one) Tablet BID for 10 days Quantity: 20 {Tablet} Refills: 0 Ordered:14-Jan-2017 Barbi Johnson Start : 14-Jan-2017 End : 24-Jan-2017 Inactive BIAXIN XL PAC, 500MG (Oral Tablet Extended Release 24 Hour) 2 (two) Tablet ER 24HR daily for 10 days Quantity: 20 {Tablet_ER_24HR} Refills: 0 Ordered:07-Feb-2010 Carolynn Srivastava CNP Start : 22-Jan-2010 End : 01-Feb-2010 Inactive CEFDINIR, 300MG (Oral Capsule) 1 (one) Capsule bid for 0 days Quantity: 20 {Capsule} Refills: 0 Ordered:08-Oct-2015 Bibiana Shay Start : 20-Sep-2015 End : 08-Oct-2015 Inactive Cipro 500 MG Oral Tablet 1 (one) Tablet bid for 7 days Quantity: 14 {Tablet} Refills: 0 Ordered:06-Dec-2017 Carolynn Srivastava CNP Start : 06-Dec-2017 End : 13-Dec-2017 Inactive Delsym 30 MG/5ML Oral Suspension Extended Release 1 (one) Suspension ER Suspension ER q12hr s for 0 days Quantity: 1 {Bottle} Refills: 0 Ordered:20-May-2017 Barbi Clements LPN Start : 11-Jan-2017 End : 20-May-2017 Inactive DOXYCYCLINE HYCLATE, 100MG (Oral Tablet) 1 (one) Tablet bid for 0 days Quantity: 20 {Tablet} Refills: 0 Ordered:03-Apr-2016 BEN Willis Start : 08-Oct-2015 End : 03-Apr-2016 Inactive FLUoxetine HCl 20 MG Oral Tablet 1 (one) Tablet qd for 0 days Quantity: 30 {Tablet} Refills: 3 Ordered:09-Sep-2016 Janay Murry LPN Start : 03-Apr-2016 End : 09-Sep-2016 Inactive Ketorolac Tromethamine 10 MG Oral Tablet 1 (one) Tablet Tablet q6hr x 2 days then 1 daily prn for pain for 0 days Quantity: 30 {Tablet} Refills: 0 Ordered:06-Dec-2017 Janay Murry LPN Start : 03-Dec-2017 End : 06-Dec-2017 Inactive Lisinopril-Hydrochlorothiazide 20-25 MG Oral Tablet 1 (one) Tablet Tablet bid for 0 days Quantity: 60 {Tablet} Refills: 0 Ordered:20-May-2017 Barbi Clements LPN Start : 03-Apr-2016 End : 20-May-2017 Inactive ProAir HFA 108 (90 Base) MCG/ACT Inhalation Aerosol Solution 2 (two) Puff q 4-6hours PRN Cough for 0 days Quantity: 1 {Inhaler} Refills: 0 Ordered:20-May-2017 Barbi Clements LPN Start : 14-Jan-2017 End : 20-May-2017 Inactive SIMVASTATIN, 20MG (Oral Tablet) 1 (one) Tablet q pm for 0 days Quantity: 30 {Tablet} Refills: 6 Ordered:28-Mar-2013 Marci Pardo LPN Start : 25-Jul-2008 End : 28-Mar-2013 Inactive Zithromax Z-Broderick 250 MG Oral Tablet 1 (one) Tablet Tablet TAD for 0 days Quantity: 1 {Package} Refills: 0 Ordered:20-May-2017 Barbi Clements LPN Start : 11-Jan-2017 End : 20-May-2017 Inactive BACTRIM DS, 800-160MG (Oral Tablet) 1 Tablet bid for 0 days Quantity: 20 {Tablet} Refills: 0 Ordered:10-May-2015 Hayley Perez LPN Start : 28-Aug-2013 End : 10-May-2015 Discontinued DIFLUCAN, 150MG (Oral Tablet) 1 Tablet qod for 4 doses for 0 days Quantity: 4 {Tablet} Refills: 1 Ordered:10-May-2015 Hayley Perez LPN Start : 01-Sep-2013 End : 10-May-2015 Discontinued NYSTATIN (External Powder) APPLY TO AFFECTED AREA Powder Twice daily for 0 days Refills: 1 Ordered:04-Jul-2008 Marci Pardo LPN Start : 04-Jul-2008 End : 28-Mar-2013 Discontinued Comments:This order discontinued per [facility]. Allergies and Adverse Reactions Name Dates Details No Known Allergies (Allergy) Status: Active No Known Drug Allergies (Allergy) Onset: 08-Oct-2015 Status: Active Past Medical History Name Dates Details Abnormal blood chemistry (R79.9, 790.6) Comments: Slightly elevated blood glucose fasting of 101, will repeat Discussed diet, exercise, etc Status: Inactive as of 20-Sep-2015 Arthritis (M19.90, 716.90) Status: Inactive as of 20-Sep-2015 Backache (M54.9, 724.5) Status: Inactive as of 13-May-2009 BMI 39.0-39.9,adult (Z68.39, V85.39) Status: Inactive as of 09-Sep-2018 BMI 40.0-44.9, adult (Z68.41, V85.41) Status: Inactive as of 09-Sep-2018 Cholecystectomy Comments: In her 20s Status: Inactive as of 20-Sep-2015 Colonoscopy Comments: ? date Status: Inactive as of 20-Sep-2015 Cough (R05, 786.2) Status: Inactive as of 20-May-2017 Current smoker (F17.200, 305.1) Status: Inactive as of 09-Sep-2018 Flu-like symptoms (R68.89, 780.99) Status: Inactive as of 20-May-2017 Grieving (F43.21, 309.0) Status: Resolved as of 05-May-2018 Headache (R51, 784.0) Comments: CT scan of head, cant afford to do it because no insurance'Haedache get worse, vioson complaion , numbness/weaknesss arm legs, confused: [facility] fired everyone, frontal area, 2/10 in severity, not worst headache of lifeNo focal weakness, Hnads tingle becaude of CTSGets dizzy but no visual complaintsHad migraines years ago Status: Inactive as of 20-May-2017 Hematuria (R31.9, 599.70) Status: Inactive as of 30-Dec-2017 Hypertension (I10, 401.9) Comments: improving slightly with hctz Status: Inactive as of 20-Sep-2015 Hypertension, benign (I10, 401.1) Status: Inactive as of 20-Sep-2015 Infection (136.9) Comments: Has been on bactrim using neosporin, not improving [facility] walk inbrushed by tree limb of lilac morales Status: Inactive as of 03-Apr-2016 Leg wound, left (S81.802A, 891.0) Comments: looks better had rocephin shot. not get oral atb because expensive. will do doxycycline if need right now healign on own. no darinage not as red. Status: Inactive as of 03-Apr-2016 Low back pain (M54.5, 724.2) Comments: spurring low back Status: Inactive as of 30-Dec-2017 Lower abdominal pain (R10.30, 789.09) Status: Inactive as of 30-Dec-2017 Pain in unspecified joint (M25.50, 719.40) Comments: multiple sites of tendernessJoint changes on hands Status: Inactive as of 13-May-2009 PRESSURE SORE (707.0) Comments: ???B/C OF LOCATION UNDER PANUS AND IN INCISION LINECOMPLICATED WITH SECONDARY YEAST INFECITON Status: Inactive as of 13-May-2009 Skin change (R23.9, 782.9) Status: Inactive as of 20-Sep-2015 Skin lesion (L98.9, 709.9) Comments: Chronic wound abdomenSeen at wound center, Derm eval for Nystatin powder Status: Inactive as of 13-May-2009 SYMPTOM, ENLARGEMENT, LYMPH NODES (785.6) Status: Inactive as of 03-Apr-2016 Tinea corporis (B35.4, 110.5) Status: Inactive as of 13-May-2009 Unspecified Diagnosis Status: Inactive as of 03-Apr-2016 Vaginal yeast infection (112.1) Status: Inactive as of 03-Apr-2016 Procedures Procedure Dates Details Cholecystectomy Completed Comments: 20's D&C Completed Comments: 20's Dilation And Curettage Of Uterus Completed Comments: in her 20s Hysterectomy, Total Completed Comments: 20's Hysterectomy; Abdominal Completed Comments: In her 20s Date Value Details 16-Sep-2018 Echo, Complete w/ Contrast Result: Comments: See Note; NOTES: [facility] Cardiovascular Services [address] [place] [address] Echo Complete W/ Contrast 09/16/18 0846 MR#: [id number] Acct: [id number] Name: KELLIE ALANIS Rep #: [id number] : 1950 67 From: Israel Grajeda MD [...] The estimated ejection fraction is 65 %. Diastoli c function is indeterminate. No regional wall motion abnormalities noted. Right Ventricle Normal RV size. Normal systolic function. Atria Normal left atrium. Normal right atrium. No doppler evidence f or ASD. Mitral Valve There is no mitral [...] endocardial definition. MMode/2D Measurements AND Calculations LVIDd: 3 .8 cm IVSd: 1.6 cm LA dimension: 3.3 [...] cm/sec MV P1/2t max román: 95.3 cm/sec A o V2 max: 112.6 cm/sec MV max P.5 [...] MD CC: Lupe Calvo DO Date Dictated: 09/16/1846 Date Transcribed: 09/16/182115 Mobile Security Architect: Signed 16-Sep-2018 Stress Report Result: Comments: See Note; NOTES: [facility] Cardiovascular Services [address] [place] [id number] MR#: [id number] Acct: [id number] Name: KELLIE ALANIS Rep #: [id number] : [birth year] 67 From: Israel Grajeda MD Primary Care: Lupe Calvo DO Status: REG CLI Ordering Dr: Sex: F C Stress Test Report Date: 09/16/2018 Procedure: Exercise tolerance test/imaging study Indica tions: Chest pain Consent: Per the patient Procedure: The patient exercised on a Trevor protocol for 6 minutes completing Stage II achieving a peak heart rate of 153 bpm (98 % predicted maximal heart rate) with a peak blood pressure 7 mmHg and a peak MET capacity of 7 METs. The baseline ECG demonstrated sinus bradycardia. The peak exercise ECG demonstrated approximately 0.5-1.0 mm horizontal/upslop ing ST segment depression in lead II with [...] exercise ECG M and straight and approximately 0.5-1.0 mm horizontal/upsloping ST segment depression in lead II wi th resolution towards baseline beginning less than 1 minute in recovery 3. There were no cardiac dysrhythmias pretest, during exercise, or recovery 4. Nuclear images pending Myocardial perfusion imagin g study: Technique: The patient was injected with 14.2 mCi of technetium 99m Cardiolite and subsequently rest SPECT Cardiolite nuclear imaging was obtained in the horizontal long, vertical long, and s hort axis views. The patient exercised on a [...] anteroseptal, and apical segments which appears to impro ve/normalize following stress. There is end systolic thickening and brightening. The gated Cardiolite study demonstrates myocardial thickening and inward wall motion. The reported LVEF is 70 %. Impress ion: 1. Rest and stress SPECT Cardiolite nuclear imaging demonstrate myocardial perfusion changes at rest which appear to improve/normalize following stress appearing compatible with shifting soft tiss ue attenuation/artifact with no myocardial perfusion changes considered diagnostic for associated stress-induced myocardial ischemia or previous myocardial injury/infarction. 2. The gated Cardiolite luis e dy reports an LVEF of 70 %. This note was generated with [employer]ation software. It may contain incorrect words, spelling, and punctuation that were not noted in checking the note before signing. 09/16/18 1550 <Electronically signed by Israel Grajeda MD> Date Israel Grajeda MD CC: Lupe Calvo DO Date Dictated: 09/16/181545 Date Transcribed: 09/16/181545 Mobile Security Architect: PM Signed 30-Jul-2018 Urgent Care Visit Report Result: Comments: See Note; NOTES: [facility] [address] [place] [address] OFFICE VISIT Date of Service: 07/30/18 MR#: [id number] Acct: [id number] Name: KELLIE ALANIS Rep #: [id number] : 1950 Provider: CIRA Mehta Age/Sex: 67/F Location: [facility] Status: Signed Intake Vital Signs07/30/18 Height 5 ft Intake Visit Reasons: POISON DONNA Chief Complaint: poi son donna Allergies No Known Allergies Allergy (Unverified 07/30/18 10:58) Medications Unobtainable [Unobtainable] 07/30/18 [History Confirmed 07/30/18] Nurse's Note: Pt takes meds for HTN and Diab etes but did not have the names of them. She reports she has been out of her BP meds x 2-3 days. PFSH Medical History Arthritis (Acute) Diabetes (Acute) Knee pain (Acute) Limb weakness (Acute) Shoulde r pain (Acute) HTN (hypertension) (Chronic) Social History Smoking Status: Current every day smoker alcohol intake: never HPI HPI Chief Complaint: poison donna Details: KELLIE ALANIS, is a 67 F, wi th uncontrolled hypertension(out off water pill so borrowing [...] in the room is 180/98. ROS Const C onstitutional: No body ache, chills, fatigue, fever(s), night sweats, change in appetite, weakness, frequent falls, headache(s) or excessive sweating Eyes Eyes: No visual disturbances, light sensitivity , eye pain or change in vision ENT ENT: Positive for other (NIDDM stated on one pill ? name and not needed in months. ); no ear pain, ear discharge, hearing loss, dizziness/vertigo, nasal discharge, dif ficulty swallowing, sore throat, neck pain or headache(s) Resp Respiratory: No cough, chest congestion, hemoptysis, shortness of breath or wheezing Cardio Cardiology: Positive for other (hypertension, u ncontrolled); no shortness of breath, irregular heart rhythm, lightheadedness, chest pain at rest, chest pain with exertion, generalized swelling, orthopnea, palpitations or excessive sweating Gastro GI : No difficulty swallowing, abdominal pain, bloating, change in bowel habits, diarrhea, blood in stool, Black,tarry stools, nausea/dyspepsia or vomiting Genitourinary-Female: No burning urination, ur inary frequency, urinary urgency, blood in urine or Vaginal Itching Musc Musculoskeletal: No joint pain, back pain, numbness, tingling or neck pain Skin Skin: Positive for rash (see HPI); no lesions or itching Neuro Neurology: No visual disturbances, numbness, tingling, abnormal speech, confusion, unsteady gait/balance, dizziness, weakness, frequent falls, loss of vision, headache(s) or memory loss [facility] Psychiatric: No change in appetite, No confusion, No memory loss, No anxiety, No depression, No panic attacks, No hallucinations, No Thoughts of harming yourself/Others Endo Endocrine: Positive for other (NIDDM stated on one pill ? name and not needed in months. ); no fatigue, cold intolerance, excessive sweating, flushing, heat intolerance or increased thirst/drinking Aller/Imm Allergy/Immunologi c: No wheezing, itchy eyes, food intolerance, seasonal allergy symptoms or hives Rolando/Lymp Hematologic/Lymphatic: No easy bruising Exam Const General: cooperative, no acute distress Nutritional Appear ance: obese Orientation: alert, oriented x3 [facility] Head: normal to inspection, normocephalic Ears: [...] AND inspection: normal inspection of the chest Res p Effort AND Inspection: normal respiratory effort, able to speak in complete sentences, symmetric chest movement, no audible wheezes, no cough, not labored, no respiratory distress Auscultation: Bilate ral: Clear to Auscultation Cardio Rate: regular rate Rhythm: regular rhythm Heart Sounds: S1 normal, S2 normal GI Inspection: normal to inspection Musc Musculoskeletal: No joint tenderness or joint redn ess Skin Rashes: rashes noted (left antecubital, papulovesicular, c/w contact dermatitis) Neuro General: alert, oriented x3, moves all extremities Speech: speech normal Motor: muscle tone normal through out Sensory Exam: no sensory deficits noted Extrem General: normal exam except as noted (rash left antecubiltal as described) Psych Appearance: grossly normal, well kempt Mental Status: mental status gr ossly normal Affect: normal affect Speech and Movement: speech and movement normal Attitude: cooperative Thought Process: normal Thought Content: normal Judgment: fair Results [facility] Office Urine Lennox r YELLOW Last Edit by Jana Browning on 07/30/18 11:16 Office Urine Clarity Clear Last Edit by Jana Browning on 07/30/18 11:16 Assessment AND Plan Problems 1. Poison donna L23.7 2. Essential hyper tension I10 3. Diabetes type 2, controlled E11.9 Plan Patient directed to ER for management of her Hypertention prior to taking a MDP called to her pharmacy. Explained this would elevate her BP more. ( She has been out of medication a week and states she cant reach her DR for refills so occasionally is taking her husbands water pill) UA was done to confirm no glucosuria. MDP and Trimcinolone order josh harding verbally to pharmacist. Both he and patient are aware she may last picker the triamcinolone cream now, but NOT to last picker the MDP until tomorrow, once BP under controll. Patient state she will go to th e ER form here for her markedly elevated BP. Orders Orders: Coding Level of Care Code Off vis,new,level 3 Diagnoses Poison donna L23.7 Essential hypertension I10 Hypertension type: essential hyperte nsion Diabetes type 2, controlled E11.9 Diabetes mellitus complication status: without complication 07/30/18 1439 <Electronically signed by Maggy DENIS> Date Maggy DENIS Cosigner Signature: Date (if applicable) CC: 04-Dec-2017 Abdomen/Pelvis without Cont Result: Comments: See Note; NOTES: [facility] Imaging Services [address] [place] [address] Abdomen/Pelvis without Cont MR#: [id number] Acct: [id number] Name: KELLIE ALANIS Rep #: [id number] : 1950 F 67 From: Rui Gould DO PCP: Carolynn Srivastava NP Status: REG CLI Study: Abdomen/Pelvis without Cont Date of Exam: 12/04/17 Exam# [id number] Ordering Dr: Carolynn Srivastava STUDY: CT ABDOME N AND PELVIS WITHOUT CONTRAST REASON FOR EXAM: Female, 67 years old. Pain, cramping RADIATION DOSAGE (If Supplied By Facility): CTDIvol = ( 23.24 ) mGy, DLP = ( 1138.12 ) mGycm TECHNIQUE: Transaxial images were obtained from the dome of the diaphragm to the symphysis pubis without oral contrast, and without intravenous contrast. Sagittal and coronal images were reconstructed. Individualized dose o ptimization techniques were used for this CT. COMPARISON: None. FINDINGS: The visualized lung bases are unremarkable. The visualized portions of the heart are withi n normal limits. Normal liver. Status post cholecystectomy. No significant dilatation of the extrahepatic biliary system. Normal spleen. Normal pancreas. Normal bilateral adrenal glands. Normal right kidney. Normal left kidney. Normal visualized stomach. Normal small intestine. Normal colon. The appendix is visualized and appears normal. Normal abdominal aorta. Normal inferior vena cava. Normal r etroperitoneum. Possible 4 mm stone in the urinary bladder. Normal abdominal wall. Mild degenerative vertebral changes. Posterior spurring at T12-L1 slightly protruding into the central canal. CT/Abdomen/Pelvis without Cont IMPRESSION: Possible stone in the urinary bladder. Electronically Signed: Rui Gould DO at 11:57 EST Tel [phone], Service support , CC: Carolynn Srivastava NP Mobile Security Architect: Signed 04-Dec-2017 Abdomen/Pelvis without Cont Result: Comments: See Note; NOTES: [facility] Imaging Services [address] [place] [address] Abdomen/Pelvis without Cont MR#: [id number] Acct: [id number] Name: KELLIE ALANIS Rosalio Rep #: [id number] : 1950 F 67 From: Rui Gould DO PCP: Carolynn Srivastava NP Status: REG CLI Study: Abdomen/Pelvis without Cont Date of Exam: 12/04/17 Exam# [id number] Ordering Dr: Carolynn Srivastava ADDENDUM by Rui Gould DO on 12/04/[address]/Abdomen/Pelvis without Cont 12/04/17 1206 Date cc: Carolynn Srivastava NP * Signed ADDENDUM by Rui Gould DO on 12/04/17 at 1159 ADDENDUM ADDENDUM: Spurring posteriorly at T12-L1 protruding into the spinal canal. Possible right-sided disc protr usion at L5-S1. Electronically Signed: Rui Gould DO at 11:59 EST Tel [phone], Service support , 12/04/17 1159 Date cc: Carolynn Srivastava NP * Si gned STUDY: CT ABDOMEN AND PELVIS WITHOUT CONTRAST REASON FOR EXAM: Female, 67 years old. Pain, cramping RADIATION DOSAGE (If Supplied By Facility): CTDIvol = ( 23.24 ) mGy, DLP = ( 1138.12 ) mGycm T ECHNIQUE: Transaxial images were obtained from the dome of the diaphragm to the symphysis pubis without oral contrast, and without intravenous contrast. Sagittal and coronal images were reconstructed. Individualized dose optimization techniques were used for this CT. COMPARISON: None. FINDINGS: The visualized lung bases are unremarkable. The visualized portions o f the heart are within normal limits. Normal liver. Status post cholecystectomy. No significant dilatation of the extrahepatic biliary system. Normal spleen. Normal pancreas. Normal bilateral adrenal glands. Normal right kidney. Normal left kidney. Normal visualized stomach. Normal small intestine. Normal colon. The appendix is visualized and appears normal. Normal abdominal aorta. Normal inferio r vena cava. Normal retroperitoneum. Possible 4 mm stone in the urinary bladder. Normal abdominal wall. Mild degenerative vertebral changes. Posterior spurring at T12-L1 slightly protruding into the c entral canal. CT/Abdomen/Pelvis without Cont IMPRESSION: Possible stone in the urinary bladder. Electronically Signed: Rui Gould DO a t 11:57 EST Tel [phone], Service support , CC: Carolynn Srivastava NP Mobile Security Architect: Signed Family History Unknown Family Member Name Dates Details ABUSED PERSON, NOS (995.81) Comments: Sexual - herself Status: Active Breast Cancer Comments: Mother Status: Active Diabetes Mellitus Comments: Father, Sister Status: Active Heart Disease Comments: Father Status: Active Hypertension Comments: Father, Brother, Sister Status: Active Social History Name Dates Details Alcohol Use Comments: Occasional alcohol use Status: Active Caffeine Use Comments: qd Status: Active Exercise History Comments: Light Status: Active Living Situation Comments: Lives with spouse Status: Active No Drug Use Status: Active Non Smoker/No Tobacco Use Status: Active Pets/Animals Comments: Catx4 Status: Active Tobacco Use: Current every day smoker. Status: Active Smoking Status Name Dates Details Current every day smoker Vital Signs Date Test Result Details :10 Temperature 96.4 f Comments: Method: Temporal Pulse 72 /min Comments: Pattern: Regular Respiration Rate 16 /min Comments: Pattern: Unlabored O2 SAT 97 % Comments: Room air BP Systolic 134 mm[Hg] Comments: Patient Position: Sitting; Cuff Location: Left Arm; Cuff Size: Standard BP Diastolic 78 mm[Hg] Comments: Patient Position: Sitting; Cuff Location: Left Arm; Cuff Size: Standard Weight 219 lb Height 63 in Body Mass Index Calculated 38.79 kg/m2 Body Surface Area Calculated 2.01 m2 :15 Temperature 97.6 f Comments: Method: Temporal Pulse 73 /min Comments: Pattern: Regular Respiration Rate 18 /min Comments: Pattern: Unlabored O2 SAT 94 % Comments: Room air BP Systolic 134 mm[Hg] Comments: Patient Position: Sitting; Cuff Location: Left Arm; Cuff Size: Large BP Diastolic 90 mm[Hg] Comments: Patient Position: Sitting; Cuff Location: Left Arm; Cuff Size: Large Weight 220.5 lb Height 63 in Body Mass Index Calculated 39.06 kg/m2 Body Surface Area Calculated 2.02 m2 :01 Pulse 62 /min Comments: Pattern: Regular Respiration Rate 18 /min Comments: Pattern: Unlabored O2 SAT 97 % Comments: Room air BP Systolic 128 mm[Hg] Comments: Patient Position: Sitting; Cuff Location: Left Arm; Cuff Size: Large BP Diastolic 72 mm[Hg] Comments: Patient Position: Sitting; Cuff Location: Left Arm; Cuff Size: Large Weight 231.125 lb Height 63 in Body Mass Index Calculated 40.94 kg/m2 Body Surface Area Calculated 2.06 m2 :08 Pulse 78 /min Comments: Pattern: Regular Respiration Rate 18 /min Comments: Pattern: Unlabored O2 SAT 99 % Comments: Room air BP Systolic 126 mm[Hg] Comments: Patient Position: Sitting; Cuff Location: Left Arm; Cuff Size: Standard BP Diastolic 78 mm[Hg] Comments: Patient Position: Sitting; Cuff Location: Left Arm; Cuff Size: Standard Weight 221.5 lb Height 63 in Body Mass Index Calculated 39.24 kg/m2 Body Surface Area Calculated 2.02 m2 :40 Temperature 97.2 f Pulse 94 /min Comments: Pattern: Regular Respiration Rate 18 /min Comments: Pattern: Unlabored O2 SAT 96 % Comments: Room air BP Systolic 134 mm[Hg] Comments: Patient Position: Sitting; Cuff Location: Left Arm; Cuff Size: Standard BP Diastolic 78 mm[Hg] Comments: Patient Position: Sitting; Cuff Location: Left Arm; Cuff Size: Standard Weight 221.5 lb Height 63 in Body Mass Index Calculated 39.24 kg/m2 Body Surface Area Calculated 2.02 m2 :52 Pulse 63 /min Comments: Pattern: Regular Respiration Rate 18 /min Comments: Pattern: Unlabored O2 SAT 97 % Comments: Room air BP Systolic 132 mm[Hg] Comments: Patient Position: Sitting; Cuff Location: Left Arm; Cuff Size: Standard BP Diastolic 76 mm[Hg] Comments: Patient Position: Sitting; Cuff Location: Left Arm; Cuff Size: Standard Weight 221.5 lb Height 63 in Body Mass Index Calculated 39.24 kg/m2 Body Surface Area Calculated 2.02 m2 :02 Pulse 68 /min Comments: Pattern: Regular Respiration Rate 18 /min Comments: Pattern: Unlabored O2 SAT 97 % Comments: Room air BP Systolic 124 mm[Hg] Comments: Patient Position: Sitting; Cuff Location: Left Arm; Cuff Size: Large BP Diastolic 82 mm[Hg] Comments: Patient Position: Sitting; Cuff Location: Left Arm; Cuff Size: Large Weight 221.5 lb Height 63 in Body Mass Index Calculated 39.24 kg/m2 Body Surface Area Calculated 2.02 m2 :27 Pulse 69 /min Comments: Pattern: Regular Respiration Rate 18 /min Comments: Pattern: Unlabored O2 SAT 97 % Comments: Room air BP Systolic 126 mm[Hg] Comments: Patient Position: Sitting; Cuff Location: Left Arm; Cuff Size: Large BP Diastolic 70 mm[Hg] Comments: Patient Position: Sitting; Cuff Location: Left Arm; Cuff Size: Large Weight 221.5 lb Height 63 in Body Mass Index Calculated 39.24 kg/m2 Body Surface Area Calculated 2.02 m2 :28 Pulse 72 /min Comments: Pattern: Regular Respiration Rate 18 /min Comments: Pattern: Unlabored O2 SAT 97 % Comments: Room air BP Systolic 128 mm[Hg] Comments: Patient Position: Sitting; Cuff Location: Left Arm; Cuff Size: Large BP Diastolic 84 mm[Hg] Comments: Patient Position: Sitting; Cuff Location: Left Arm; Cuff Size: Large Weight 224.125 lb Height 63 in Body Mass Index Calculated 39.7 kg/m2 Body Surface Area Calculated 2.03 m2 :08 Temperature 98.9 f Comments: Method: Temporal Pulse 75 /min Comments: Pattern: Regular Respiration Rate 16 /min Comments: Pattern: Unlabored O2 SAT 95 % Comments: Room air BP Systolic 136 mm[Hg] Comments: Patient Position: Sitting; Cuff Location: Left Arm; Cuff Size: Standard BP Diastolic 70 mm[Hg] Comments: Patient Position: Sitting; Cuff Location: Left Arm; Cuff Size: Standard Weight 224 lb Height 63 in Body Mass Index Calculated 39.68 kg/m2 Body Surface Area Calculated 2.03 m2 :15 Temperature 98 f Comments: Method: Temporal Pulse 78 /min Comments: Pattern: Regular Respiration Rate 16 /min Comments: Pattern: Unlabored O2 SAT 97 % Comments: Room air BP Systolic 148 mm[Hg] Comments: Patient Position: Sitting; Cuff Location: Left Arm; Cuff Size: Standard BP Diastolic 82 mm[Hg] Comments: Patient Position: Sitting; Cuff Location: Left Arm; Cuff Size: Standard Weight 224 lb Height 63 in Body Mass Index Calculated 39.68 kg/m2 Body Surface Area Calculated 2.03 m2 :20 Temperature 97.3 f Comments: Method: Temporal Pulse 80 /min Comments: Pattern: Regular Respiration Rate 20 /min Comments: Pattern: Unlabored O2 SAT 98 % Comments: Room air BP Systolic 124 mm[Hg] Comments: Patient Position: Sitting; Cuff Location: Left Arm; Cuff Size: Large BP Diastolic 80 mm[Hg] Comments: Patient Position: Sitting; Cuff Location: Left Arm; Cuff Size: Large Weight 228 lb Height 63 in Body Mass Index Calculated 40.39 kg/m2 Body Surface Area Calculated 2.04 m2 :37 Temperature 97.4 f Comments: Method: Oral Pulse 75 /min Comments: Pattern: Regular Respiration Rate 16 /min Comments: Pattern: Unlabored O2 SAT 96 % Comments: Room air BP Systolic 128 mm[Hg] Comments: Patient Position: Sitting; Cuff Location: Left Arm; Cuff Size: Standard BP Diastolic 72 mm[Hg] Comments: Patient Position: Sitting; Cuff Location: Left Arm; Cuff Size: Standard Weight 226 lb Height 63 in Body Mass Index Calculated 40.03 kg/m2 Body Surface Area Calculated 2.04 m2 :43 Temperature 97.6 f Comments: Method: Temporal Pulse 74 /min Comments: Pattern: Regular Respiration Rate 18 /min Comments: Pattern: Unlabored O2 SAT 98 % Comments: Room air BP Systolic 144 mm[Hg] Comments: Patient Position: Sitting; Cuff Location: Left Arm; Cuff Size: Standard BP Diastolic 90 mm[Hg] Comments: Patient Position: Sitting; Cuff Location: Left Arm; Cuff Size: Standard Weight 226 lb Height 63 in Body Mass Index Calculated 40.03 kg/m2 Body Surface Area Calculated 2.04 m2 :14 Temperature 97.8 f Pulse 75 /min Comments: Pattern: Regular Respiration Rate 16 /min Comments: Pattern: Unlabored O2 SAT 95 % Comments: Room air BP Systolic 190 mm[Hg] Comments: Patient Position: Sitting; Cuff Location: Left Arm; Cuff Size: Standard BP Diastolic 90 mm[Hg] Comments: Patient Position: Sitting; Cuff Location: Left Arm; Cuff Size: Standard Weight 228 lb Height 63 in Body Mass Index Calculated 40.39 kg/m2 Body Surface Area Calculated 2.04 m2 :01 Temperature 98.1 f Comments: Method: Oral Pulse 58 /min Comments: Pattern: Regular Respiration Rate 20 /min Comments: Pattern: Unlabored O2 SAT 98 % Comments: Room air BP Systolic 122 mm[Hg] Comments: Patient Position: Sitting; Cuff Location: Left Arm; Cuff Size: Large BP Diastolic 80 mm[Hg] Comments: Patient Position: Sitting; Cuff Location: Left Arm; Cuff Size: Large Weight 248.5625 lb Height 63 in Body Mass Index Calculated 44.03 kg/m2 Body Surface Area Calculated 2.12 m2 :00 Temperature 98.4 f Comments: Method: Oral Pulse 76 /min Comments: Pattern: Regular Respiration Rate 20 /min Comments: Pattern: Unlabored O2 SAT 98 % Comments: Room air BP Systolic 122 mm[Hg] Comments: Patient Position: Sitting; Cuff Location: Left Arm; Cuff Size: Large BP Diastolic 78 mm[Hg] Comments: Patient Position: Sitting; Cuff Location: Left Arm; Cuff Size: Large Weight 248.5625 lb Height 63 in Body Mass Index Calculated 44.03 kg/m2 Body Surface Area Calculated 2.12 m2 :08 Temperature 98.1 f Comments: Method: Oral Pulse 43 /min Comments: Pattern: Regular Respiration Rate 20 /min Comments: Pattern: Unlabored O2 SAT 91 % Comments: Room air BP Systolic 138 mm[Hg] Comments: Patient Position: Sitting; Cuff Location: Left Arm; Cuff Size: Large BP Diastolic 88 mm[Hg] Comments: Patient Position: Sitting; Cuff Location: Left Arm; Cuff Size: Large Weight 248.5625 lb Height 63 in Body Mass Index Calculated 44.03 kg/m2 Body Surface Area Calculated 2.12 m2 :58 Temperature 98.2 f Comments: Method: Oral Pulse 60 /min Comments: Pattern: Regular Respiration Rate 20 /min Comments: Pattern: Unlabored BP Systolic 130 mm[Hg] Comments: Patient Position: Sitting; Cuff Location: Left Arm; Cuff Size: Large BP Diastolic 82 mm[Hg] Comments: Patient Position: Sitting; Cuff Location: Left Arm; Cuff Size: Large Weight 248.5625 lb Height 63 in Body Mass Index Calculated 44.03 kg/m2 Body Surface Area Calculated 2.12 m2 :14 Temperature 97.4 f Comments: Method: Oral Pulse 60 /min Comments: Pattern: Regular Respiration Rate 20 /min Comments: Pattern: Unlabored BP Systolic 138 mm[Hg] Comments: Patient Position: Sitting; Cuff Location: Left Arm; Cuff Size: Large BP Diastolic 80 mm[Hg] Comments: Patient Position: Sitting; Cuff Location: Left Arm; Cuff Size: Large Weight 248.5625 lb Height 63 in Body Mass Index Calculated 44.03 kg/m2 Body Surface Area Calculated 2.12 m2 :59 Temperature 97.8 f Comments: Method: Oral Pulse 76 /min Comments: Pattern: Regular Respiration Rate 17 /min Comments: Pattern: Unlabored O2 SAT 98 % Comments: Room air BP Systolic 138 mm[Hg] Comments: Patient Position: Sitting; Cuff Location: Left Arm; Cuff Size: Standard BP Diastolic 82 mm[Hg] Comments: Patient Position: Sitting; Cuff Location: Left Arm; Cuff Size: Standard Weight 253.5 lb Height 63 in Body Mass Index Calculated 44.91 kg/m2 Body Surface Area Calculated 2.14 m2 :39 Temperature 98.7 f Comments: Method: Oral Pulse 80 /min Comments: Pattern: Regular Respiration Rate 16 /min Comments: Pattern: Unlabored BP Systolic 144 mm[Hg] Comments: Patient Position: Sitting; Cuff Location: Left Arm; Cuff Size: Standard BP Diastolic 86 mm[Hg] Comments: Patient Position: Sitting; Cuff Location: Left Arm; Cuff Size: Standard Weight 253.5 lb Height 63 in Body Mass Index Calculated 44.91 kg/m2 Body Surface Area Calculated 2.14 m2 :25 Comments: I have been off the bp meds for 2 days Temperature 98.3 f Comments: Method: Oral Pulse 66 /min Comments: Pattern: Regular Respiration Rate 16 /min O2 SAT 96 % Comments: Room air BP Systolic 140 mm[Hg] Comments: Patient Position: Sitting; Cuff Location: Left Arm; Cuff Size: Standard BP Diastolic 84 mm[Hg] Comments: Patient Position: Sitting; Cuff Location: Left Arm; Cuff Size: Standard Weight 253.5 lb Height 63 in Body Mass Index Calculated 44.91 kg/m2 Body Surface Area Calculated 2.14 m2 :16 Temperature 98.1 f Comments: Method: Oral Pulse 74 /min Comments: Pattern: Regular Respiration Rate 17 /min BP Systolic 150 mm[Hg] Comments: Patient Position: Sitting; Cuff Location: Left Arm; Cuff Size: Standard BP Diastolic 100 mm[Hg] Comments: Patient Position: Sitting; Cuff Location: Left Arm; Cuff Size: Standard Weight 257.0625 lb Height 63 in Body Mass Index Calculated 45.54 kg/m2 Body Surface Area Calculated 2.15 m2 :54 Temperature 97.3 f Comments: Method: Oral Pulse 56 /min Comments: Pattern: Regular Respiration Rate 20 /min Comments: Pattern: Unlabored BP Systolic 124 mm[Hg] Comments: Patient Position: Sitting; Cuff Location: Left Arm; Cuff Size: Large BP Diastolic 72 mm[Hg] Comments: Patient Position: Sitting; Cuff Location: Left Arm; Cuff Size: Large :40 Temperature 97.3 f Comments: Method: Oral Pulse 78 /min Comments: Pattern: Regular Respiration Rate 16 /min Comments: Pattern: Unlabored BP Systolic 128 mm[Hg] Comments: Patient Position: Sitting; Cuff Location: Left Arm; Cuff Size: Standard BP Diastolic 72 mm[Hg] Comments: Patient Position: Sitting; Cuff Location: Left Arm; Cuff Size: Standard :55 Temperature 97.1 f Comments: Method: Oral Pulse 74 /min Comments: Pattern: Regular Respiration Rate 16 /min Comments: Pattern: Unlabored BP Systolic 106 mm[Hg] Comments: Patient Position: Sitting; Cuff Location: Left Arm; Cuff Size: Large BP Diastolic 72 mm[Hg] Comments: Patient Position: Sitting; Cuff Location: Left Arm; Cuff Size: Large Weight 249.0625 lb Height 0 in Head Circumference 0.00 cm :06 Temperature 97.1 f Comments: Method: Undefined Pulse 76 /min Comments: Pattern: Regular Respiration Rate 18 /min Comments: Pattern: Unlabored BP Systolic 160 mm[Hg] Comments: Patient Position: Sitting; Cuff Location: Left Arm; Cuff Size: Standard BP Diastolic 74 mm[Hg] Comments: Patient Position: Sitting; Cuff Location: Left Arm; Cuff Size: Standard Weight 249.25 lb Height 62 in Body Mass Index Calculated 45.59 kg/m2 Body Surface Area Calculated 2.1 m2 Head Circumference 0.00 cm :40 Pulse 80 /min Comments: Pattern: Regular Respiration Rate 20 /min Comments: Pattern: Unlabored BP Systolic 162 mm[Hg] Comments: Patient Position: Sitting; Cuff Location: Right Arm; Cuff Size: Standard BP Diastolic 78 mm[Hg] Comments: Patient Position: Sitting; Cuff Location: Right Arm; Cuff Size: Standard Weight 249.5625 lb Height 61.5 in Body Mass Index Calculated 46.39 kg/m2 Body Surface Area Calculated 2.09 m2 Head Circumference 0.00 cm Results Date Description Value Details :12 Albumin/Creatinine Ratio,Urine Comments: PATIENT WAS FASTINGPERFORMED BY: [facility] [id number] [facility] [id number] Alb/Creat Ratio 6.0 {mg/g_creat} (Normal) Range: 0.0-30.0 Comments: Normal: 0.0 - 30.0 Albuminuria: 31.0 - 300.0 Clinical albuminuria: >300.0 Albumin, Urine 3.3 ug/mL (Normal) Creatinine, Urine 54.6 mg/dL (Normal) :12 Microscopic Examination Comments: PATIENT WAS FASTINGPERFORMED BY: [employer] [id number] [facility] [id number] Bacteria Few (Normal) Mucus Threads Present (Normal) Epithelial Cells (non renal) 0-10 {/hpf} (Normal) Range: 0 - 10 RBC 0-2 {/hpf} (Normal) Range: 0 - 2 WBC 0-5 {/hpf} (Normal) Range: 0 - 5 :12 Urinalysis, Complete Comments: PATIENT WAS FASTINGPERFORMED BY: [employer] [facility] [id number] Microscopic Examination See below: (Normal) Comments: Microscopic was indicated and was performed. Nitrite, Urine Negative (Normal) Urobilinogen,Semi-Qn 0.2 mg/dL (Normal) Range: 0.2-1.0 Bilirubin Negative (Normal) Occult Blood Negative (Normal) Ketones Negative (Normal) Glucose Negative (Normal) Protein Negative (Normal) WBC Esterase 1+ (Abnormal) Appearance Clear (Normal) Urine-Color Yellow (Normal) pH 7.0 (Normal) Range: 5.0-7.5 Specific [place] 1.016 (Normal) Range: 1.005-1.030 Vitamin B12 399 pg/mL (Normal) Comments: PATIENT WAS FASTINGPERFORMED BY: [employer] [id number] [facility] [id number] :12 Range: 232-1245 :15 URINE KEILA CULTURE-IDENTIFICATN Comments: PERFORMED BY: [employer] [facility] [id number] Information: SRC:KENDALL ([id number]) Antimicrobial MIHEAD (Normal) Comments: S = Susceptible; I = Intermediate; R = Resistant P = Positive; N = Negative MICS are expressed in micrograms per mL Antibiotic RSLT#1 RSLT#2 RS Susceptibility LT#3 RSLT#4Amoxicillin/Clavulanic Acid SAmpicillin RCefepime SCeftriaxone SCefuroxime SCiprofloxacin SErtapenem SGentamicin RImipenem SLevofloxacin SMeropenem SNitrofurantoin SPipera cillin/Tazobactam STetracycline RTobramycin STrimethoprim/Sulfa R Result 1 Escherichia coli Comments: Greater than 100,000 colony forming units per mLCefazolin <=4 ug/mLCefazolin with an LIBRADO <=16 predicts susceptibility to the oral agentscefaclor, cefdinir, cefpodoxime, cefprozil, cefuroxime, ceph (Abnormal) alexin,and loracarbef when used for therapy of uncomplicated urinary tractinfections due to E. coli, Klebsiella pneumoniae, and Proteusmirabilis. Urine Final report Culture,Comprehensive (Abnormal) :15 Urinalysis, Office ([id number]) UA - LEUKOCYTE ESTERASE Trace (Normal) UA - NITRITE Negative (Normal) URINE UROBILINGN KATY TIMED Normal mg/dL (Normal) UA - PROTEIN Negative mg/dL (Normal) UA - PH 7 (Normal) UA - BLOOD non-hemolyzed trace (Normal) UA - SPECIFIC GRAVITY 1.015 (Normal) UA - KETONES Negative mg/dL (Normal) UA - BILIRUBIN Negative (Normal) UA - GLUCOSE Negative (Normal) :14 HgA1C , Office (69393) HgA1C , Office 5.8 % (Normal) Range: 4.6 - 7.1 :14 Blood Glucose , Office (55676) Blood Glucose , Office 120 (Normal) :12 TSH ([id number]) Comments: PATIENT WAS FASTINGPERFORMED BY: [facility]Success[facility] Educational CenterSszplm9684 [facility] [id number] TSH 2.630 {uIU/mL} (Normal) Range: 0.450-4.500 :12 METABOLIC PANEL, COMPREHENSIVE Comments: PATIENT WAS FASTINGPERFORMED BY: [employer] [id number] [facility] [id number] ([id number]) ALT (SGPT) 23 [iU]/L (Normal) Range: 0-32 AST (SGOT) 24 [iU]/L (Normal) Range: 0-40 Alkaline Phosphatase 98 [iU]/L (Normal) Range: 39-117 Bilirubin, Total 0.4 mg/dL (Normal) Range: 0.0-1.2 A/G Ratio 1.5 (Normal) Range: 1.2-2.2 Globulin, Total 2.8 g/dL (Normal) Range: 1.5-4.5 Albumin 4.3 g/dL (Normal) Range: 3.6-4.8 Protein, Total 7.1 g/dL (Normal) Range: 6.0-8.5 Calcium 10.2 mg/dL (Normal) Range: 8.7-10.3 Carbon Dioxide, Total 25 mmol/L (Normal) Range: 20-29 Chloride 99 mmol/L (Normal) Range: 96-106 Potassium 4.7 mmol/L (Normal) Range: 3.5-5.2 Sodium 140 mmol/L (Normal) Range: 134-144 BUN/Creatinine Ratio 24 (Normal) Range: 12-28 eGFR If Africn Am 80 mL/min/1.73 (Normal) eGFR If NonAfricn Am 69 mL/min/1.73 (Normal) Creatinine 0.88 mg/dL (Normal) Range: 0.57-1.00 BUN 21 mg/dL (Normal) Range: 8-27 Glucose 113 mg/dL (Abnormal) Range: 65-99 16-Jcc-22488:12 LIPID PANEL (65118) Comments: PATIENT WAS FASTINGPERFORMED BY: [facility]CoMat[facility] Educational CenterOgmfjz6446 [facility] [id number] LDL/HDL Ratio 2.6 {ratio} (Normal) Range: 0.0-3.2 Comments: LDL/HDL Ratio Men Women 1/2 Avg.Risk 1.0 1.5 Av g.Risk 3.6 3.2 2X Avg.Risk 6.2 5.0 3X Avg.Risk 8.0 6.1 LDL Cholesterol Calc 162 mg/dL (Abnormal) Range: 0-99 VLDL Cholesterol Candelario 21 mg/dL (Normal) Range: 5-40 HDL Cholesterol 63 mg/dL (Normal) Triglycerides 103 mg/dL (Normal) Range: 0-149 Cholesterol, Total 246 mg/dL (Abnormal) Range: 100-199 05-Wzc-27535:12 CBC W/AUTO DIFF WBC ([id number]) Comments: PATIENT WAS FASTINGPERFORMED BY: [facility] [id number] [facility] [id number] Immature Grans (Abs) 0.0 {x10E3/uL} (Normal) Range: 0.0-0.1 Immature Granulocytes 0 % (Normal) Baso (Absolute) 0.0 {x10E3/uL} (Normal) Range: 0.0-0.2 Eos (Absolute) 0.2 {x10E3/uL} (Normal) Range: 0.0-0.4 Monocytes(Absolute) 0.4 {x10E3/uL} (Normal) Range: 0.1-0.9 Lymphs (Absolute) 2.8 {x10E3/uL} (Normal) Range: 0.7-3.1 Neutrophils (Absolute) 4.2 {x10E3/uL} (Normal) Range: 1.4-7.0 Basos 0 % (Normal) Eos 3 % (Normal) Monocytes 6 % (Normal) Lymphs 36 % (Normal) Neutrophils 55 % (Normal) Platelets 274 {x10E3/uL} (Normal) Range: 150-379 RDW 13.5 % (Normal) Range: 12.3-15.4 MCHC 33.3 g/dL (Normal) Range: 31.5-35.7 MCH 31.6 pg (Normal) Range: 26.6-33.0 MCV 95 fL (Normal) Range: 79-97 Hematocrit 44.7 % (Normal) Range: 34.0-46.6 Hemoglobin 14.9 g/dL (Normal) Range: 11.1-15.9 RBC 4.72 {x10E6/uL} (Normal) Range: 3.77-5.28 WBC 7.6 {x10E3/uL} (Normal) Range: 3.4-10.8 :53 HgA1C , Office (58947) HgA1C , Office 7.7 % (Abnormal) Range: 4.6 - 7.1 :53 Blood Glucose , Office (45467) Blood Glucose , Office 111 (Normal) :01 HgA1C , Office (65419) HgA1C , Office 5.5 % (Normal) Range: 4.6 - 7.1 :01 Blood Glucose , Office (18305) Blood Glucose , Office 126 (Normal) Comments: pt is fasting [id number] URINE KEILA CULTURE-IDENTIFICATN Comments: PATIENT NOT FASTINGPERFORMED BY: MELYSSA [facility] [id number] [facility] [id number] Information: SRC: ([id number]) Antimicrobial MIHEAD (Normal) Comments: S = Susceptible; I = Intermediate; R = Resistant P = Positive; N = Negative MICS are expressed in micrograms per mL Antibiotic RSLT#1 RSLT#2 RS Susceptibility LT#3 RSLT#4Amoxicillin/Clavulanic Acid SAmpicillin RCefepime SCeftriaxone SCefuroxime ICephalothin ICiprofloxacin SErtapenem SGentamicin SImipenem SLevofloxacin SNitrofurantoin SPipera cillin STetracycline STobramycin STrimethoprim/Sulfa S Result 1 Escherichia coli Comments: Greater than 100,000 colony forming units per mL (Abnormal) Urine Final report Culture,Comprehensive (Abnormal) [id number] Urinalysis, Office ([id number]) UA - LEUKOCYTE ESTERASE Negative (Normal) UA - NITRITE Negative (Normal) URINE UROBILINGN KATY TIMED 2 mg/dL (Normal) UA - PROTEIN Negative mg/dL (Normal) UA - PH 5.0 (Normal) UA - BLOOD Hemolyzed Trace (Normal) UA - SPECIFIC GRAVITY 1.015 (Normal) UA - KETONES Negative mg/dL (Normal) UA - BILIRUBIN Negative (Normal) UA - GLUCOSE Negative (Normal) :01 HgA1C , Office (67562) HgA1C , Office 5.5 % (Normal) Range: 4.6 - 7.1 :01 Blood Glucose , Office (67231) Blood Glucose , Office 105 (Normal) [id number]-[id number]:16 TSH ([id number]) Comments: PATIENT WAS FASTINGPERFORMED BY: [facility] [id number] [facility] [id number] TSH 1.770 {uIU/mL} (Normal) Range: 0.450-4.500 [id number]-[id number]:16 MICROALBUMIN: CREATININE RATIO Comments: PATIENT WAS FASTINGPERFORMED BY: [facility]6370 [facility] [id number] ([id number]) AND (78692) Microalb/Creat Ratio <10.4 {mg/g_creat} (Normal) Range: 0.0-30.0 Microalbumin, Urine <3.0 ug/mL (Normal) Creatinine, Urine 28.9 mg/dL (Normal) [id number]-Srr-[id number]:16 METABOLIC PANEL, COMPREHENSIVE Comments: PATIENT WAS FASTINGPERFORMED BY: [facility]6370 [facility] [id number] ([id number]) ALT (SGPT) 19 [iU]/L (Normal) Range: 0-32 AST (SGOT) 21 [iU]/L (Normal) Range: 0-40 Alkaline Phosphatase, S 98 [iU]/L (Normal) Range: 39-117 Bilirubin, Total 0.5 mg/dL (Normal) Range: 0.0-1.2 A/G Ratio 1.6 (Normal) Range: 1.2-2.2 Globulin, Total 2.7 g/dL (Normal) Range: 1.5-4.5 Albumin, Serum 4.2 g/dL (Normal) Range: 3.6-4.8 Protein, Total, Serum 6.9 g/dL (Normal) Range: 6.0-8.5 Calcium, Serum 9.9 mg/dL (Normal) Range: 8.7-10.3 Carbon Dioxide, Total 28 mmol/L (Normal) Range: 18-29 Chloride, Serum 98 mmol/L (Normal) Range: 96-106 Potassium, Serum 4.4 mmol/L (Normal) Range: 3.5-5.2 Sodium, Serum 141 mmol/L (Normal) Range: 134-144 BUN/Creatinine Ratio 23 (Normal) Range: 12-28 eGFR If Africn Am 94 mL/min/1.73 (Normal) eGFR If NonAfricn Am 82 mL/min/1.73 (Normal) Creatinine, Serum 0.77 mg/dL (Normal) Range: 0.57-1.00 BUN 18 mg/dL (Normal) Range: 8-27 Glucose, Serum 99 mg/dL (Normal) Range: 65-99 [id number]-[id number]:16 LIPID PANEL (68150) Comments: PATIENT WAS FASTINGPERFORMED BY: [facility]CoMat[facility] CenterSdfayi4337 [facility] [id number] LDL/HDL Ratio 2.4 {ratio_units} (Normal) Range: 0.0-3.2 Comments: LDL/HDL Ratio Men Women 1/2 Avg.Risk 1.0 1.5 Av g.Risk 3.6 3.2 2X Avg.Risk 6.2 5.0 3X Avg.Risk 8.0 6.1 LDL Cholesterol Calc 149 mg/dL (Abnormal) Range: 0-99 VLDL Cholesterol Candelario 20 mg/dL (Normal) Range: 5-40 HDL Cholesterol 63 mg/dL (Normal) Triglycerides 102 mg/dL (Normal) Range: 0-149 Cholesterol, Total 232 mg/dL (Abnormal) Range: 100-199 [id number]-Ovc-[id number]:16 CBC W/AUTO DIFF WBC ([id number]) Comments: PATIENT WAS FASTINGPERFORMED BY: [facility] CenterZjetym4148 [facility] [id number] Immature Grans (Abs) 0.0 {x10E3/uL} (Normal) Range: 0.0-0.1 Immature Granulocytes 0 % (Normal) Baso (Absolute) 0.0 {x10E3/uL} (Normal) Range: 0.0-0.2 Eos (Absolute) 0.2 {x10E3/uL} (Normal) Range: 0.0-0.4 Monocytes(Absolute) 0.5 {x10E3/uL} (Normal) Range: 0.1-0.9 Lymphs (Absolute) 2.6 {x10E3/uL} (Normal) Range: 0.7-3.1 Neutrophils (Absolute) 3.7 {x10E3/uL} (Normal) Range: 1.4-7.0 Basos 0 % (Normal) Eos 3 % (Normal) Monocytes 7 % (Normal) Lymphs 37 % (Normal) Neutrophils 53 % (Normal) Platelets 294 {x10E3/uL} (Normal) Range: 150-379 RDW 13.6 % (Normal) Range: 12.3-15.4 MCHC 33.1 g/dL (Normal) Range: 31.5-35.7 MCH 30.4 pg (Normal) Range: 26.6-33.0 MCV 92 fL (Normal) Range: 79-97 Hematocrit 45.6 % (Normal) Range: 34.0-46.6 Hemoglobin 15.1 g/dL (Normal) Range: 11.1-15.9 RBC 4.96 {x10E6/uL} (Normal) Range: 3.77-5.28 WBC 7.0 {x10E3/uL} (Normal) Range: 3.4-10.8 :20 HgA1C , Office (54528) HgA1C , Office 5.6 % (Normal) Range: 4.6 - 7.1 :20 Blood Glucose , Office (65120) Blood Glucose , Office 127 (Normal) :24 Rapid Flu (26241 x 2) Influenza A Ag negative (Normal) :24 HgA1C , Office (34472) HgA1C , Office 6.1 % (Normal) Range: 4.6 - 7.1 :12 VANT 3.8 ug/ml (Abnormal) Range: 5.0-15.0 Comments: VANCOMYCIN STANDARED DRUG THERAPY TROUGH LEVEL:5.0 - 15.0 mg/LVANCOMYCIN HIGH INTENSITY THERAPY TROUGH LEVEL:15.0 - 20.0 mg/LHigh Intensity therapy recommended for serious lifethreatening infections inc lude:- Jrbgzrdutt-Sswtertyiamr-Zpeeahuxq (Ventilator/Healtcare Associated)- SepsisPLEASE CONTACT PHARMACY SERVICES (#3297) FOR INTERPRETATIONOF RESULTS. :17 CUW See Note (Normal) Comments: If further studies are desired, please contact theMicrobiology Laboratory within 48 hours. AMOUNT GROWTH VERY RARE ORGANISM 1: COAG NEGATIVE STAPH GS See Note (Normal) Comments: GRAM STAIN2+ RED CELL STROMANO ORGANISMS SEEN 84-Obs-108550:30 MRSAD tMRSA Negative (Normal) SOURCE: NASAL SWAB (Normal) :03 Metabolic Panel, Basic Comments: PATIENT NOT FASTINGPERFORMED BY: [facility] Olkhdw9479 [facility] [id number] Information: [id number] (53624) Calcium, Serum 10.0 mg/dL (Normal) Range: 8.6-10.2 Carbon Dioxide, Total 24 mmol/L (Normal) Range: 19-28 Chloride, Serum 102 mmol/L (Normal) Range: 97-108 Potassium, Serum 4.5 mmol/L (Normal) Range: 3.5-5.2 Sodium, Serum 139 mmol/L (Normal) Range: 134-144 BUN/Creatinine Ratio 28 (Abnormal) Range: 11-26 eGFR If Africn Am 99 mL/min/1.73 (Normal) eGFR If NonAfricn Am 86 mL/min/1.73 (Normal) Creatinine, Serum 0.76 mg/dL (Normal) Range: 0.57-1.00 BUN 21 mg/dL (Normal) Range: 8-27 Glucose, Serum 106 mg/dL (Abnormal) Range: 65-99 :46 Blood Glucose , Office (24864) Comments: 110 Blood Glucose , Office 110 (Normal) :12 HgA1C , Office (32275) Comments: 5.9 HgA1C , Office 5.9 % (Normal) Range: 4.6 - 7.1 :03 TSH (13124) Comments: PATIENT NOT FASTINGPERFORMED BY: [employer] LabCoUpsideUpcryh4048 [facility] [id number] TSH 2.030 {uIU/mL} (Normal) Range: 0.450-4.500 :15 HgA1C , Office (37725) HgA1C , Office 6.1 % (Normal) Range: 4.6 - 7.1 :15 Blood Glucose , Office (31762) Blood Glucose , Office 92 (Normal) 61-Arv-880716:53 LEFT HEART CATH/COR/LV PERCUT Radiology Report See Note (Normal) Comments: Exam Number: [id number] Procedure completed. Please see MEDICAL RECORDS reports in PCI -OP - OP NOTELET - LETTER. Reported By: MELVIN ARCEO M.D. 71-Kzu-307059:27 TSH ([id number]) Comments: PATIENT NOT FASTINGPERFORMED BY: [facility] CenterSrxhqq5104 [facility] [id number] TSH 1.728 {uIU/mL} (Normal) Range: 0.350-5.500 Comments: Adult TSH concentrations below 5.5 uIU/mL do not rule out the presence of subclinical hypothyroidism. . *EFFECTIVE JULY 23, 2008 the adult reference interval for TSH will be changing to: 0.450 - 4.500 uIU/mL. 24-Ngo-853459:27 C-REACTIVE PROTEIN (34894) Comments: PATIENT NOT FASTINGPERFORMED BY: [employer] Hewhws4586 [facility] [id number] C-Reactive Protein, Quant 6.2 mg/L (Abnormal) Range: 0.0-4.9 14-Est-709272:27 SED RATE ERYTHROCYTE (95972) Comments: PATIENT NOT FASTINGPERFORMED BY: [employer] [id number] [facility] [id number] Sedimentation Rate-Westergren 10 mm/h (Normal) Range: 0-30 26-Vyc-504540:27 VITAMIN B-12 (CYANOCOBALAMIN) Comments: PATIENT NOT FASTINGPERFORMED BY: [employer] Zxsezt9219 [facility] [id number] (56595) Vitamin B12 309 pg/mL (Normal) Range: 211-911 64-Gus-754897:27 MICROALBUMIN URINE QUANT Comments: PATIENT NOT FASTINGPERFORMED BY: [employer] Huhidx7505 [facility] [id number] (49132) Microalbum.,U,Random 3.4 ug/mL (Normal) Range: 0.0-17.0 10-Pto-067979:27 URINALYSIS W/O MICRO (43469) Comments: PATIENT NOT FASTINGClinical Information: ADD DRAW FEE [id number] ADD J 72484 PERFORMED BY: [employer] Dgbrth7811 [facility] [id number] Appearance Clear (Normal) Bilirubin Negative (Normal) Glucose Negative (Normal) Ketones Negative (Normal) Microscopic Examination MICRON (Normal) Comments: Microscopic follows if indicated. Nitrite, Urine Negative (Normal) Occult Blood Negative (Normal) pH 7.0 (Normal) Range: 5.0-7.5 Protein Negative (Normal) Specific [place] 1.012 (Normal) Range: 1.005-1.030 Urine-Color Yellow (Normal) Urobilinogen,Semi-Qn 0.2 mg/dL (Normal) Range: 0.0-1.9 WBC Esterase Negative (Normal) Plan of Care Name Dates Details Instructions Encounter for annual general medical examination with abnormal findings in adult : fall reduction handout Indication: Encounter for annual general medical examination with abnormal findings in adult Encounter for annual general medical examination with abnormal findings in adult : elderly packet given Indication: Encounter for annual general medical examination with abnormal findings in adult Encounter for annual general medical examination with abnormal findings in adult : advance planning information Indication: Encounter for annual general medical examination with abnormal findings in adult Encounter for annual general medical examination with abnormal findings in adult : *Weight Loss Discussion Indication: Encounter for annual general medical examination with abnormal findings in adult Encounter for annual general medical examination with abnormal findings in adult : *Well Female Maintenance (KF) Indication: Encounter for annual general medical examination with abnormal findings in adult Encounter for annual general medical examination with abnormal findings in adult : Self breast exam Indication: Encounter for annual general medical examination with abnormal findings in adult Atypical chest pain : Follow up - Make appt after diagnostic tests Indication: Atypical chest pain Diabetes type 2, controlled : Follow up in 3 months Indication: Diabetes type 2, controlled Hypercholesteremia : Cholesterol mgmt Indication: Hypercholesteremia Hypertension : Diet, Exercise, and Wt loss Indication: Hypertension Hypertension : HTN/CAD Red Flags Indication: Hypertension Diabetes type 2, controlled : Diet, Exercise, and Wt loss Indication: Diabetes type 2, controlled Diabetes type 2, controlled : *Diabetes Education Indication: Diabetes type 2, controlled Dysuria : Eprescribed prescriptions (G8553) Indication: Dysuria Uncontrolled type 2 diabetes mellitus : Follow up in 3 months Indication: Uncontrolled type 2 diabetes mellitus Uncontrolled type 2 diabetes mellitus : *Diabetes Education Indication: Uncontrolled type 2 diabetes mellitus Hypertension : HTN/CAD Red Flags Indication: Hypertension Hypercholesteremia : Cholesterol mgmt Indication: Hypercholesteremia Protrusion of intervertebral disc of lumbosacral region : Reviewed Diagnostic Tests Indication: Protrusion of intervertebral disc of lumbosacral region Hypercholesteremia : Cholesterol mgmt Indication: Hypercholesteremia Diabetes type 2, controlled : Follow up in 4 months Indication: Diabetes type 2, controlled Hypertension : HTN/CAD Red Flags Indication: Hypertension Diabetes type 2, controlled : Eprescribed prescriptions (G8553) Indication: Diabetes type 2, controlled Current nonsmoker (Renamed from Current non-smoker) : Follow up if no improvement or if symptoms worsen Indication: Current nonsmoker (Renamed from Current non-smoker) Low back pain : Eprescribed prescriptions (G8553) Indication: Low back pain Lower abdominal pain : Follow up if no improvement or if symptoms worsen Indication: Lower abdominal pain Lower abdominal pain : Eprescribed prescriptions (G8553) Indication: Lower abdominal pain Diabetes type 2, controlled : Follow up in 3 months Indication: Diabetes type 2, controlled Hypertension : HTN/CAD Red Flags Indication: Hypertension Hypercholesteremia : Cholesterol mgmt Indication: Hypercholesteremia Diabetes type 2, controlled : Eprescribed prescriptions (G8553) Indication: Diabetes type 2, controlled Diabetes type 2, controlled : Follow up in 4 months Indication: Diabetes type 2, controlled Hypertension : Diet, Exercise, and Wt loss Indication: Hypertension Hypertension : HTN/CAD Red Flags Indication: Hypertension Hypercholesteremia : Cholesterol mgmt Indication: Hypercholesteremia Diabetes type 2, controlled : Diabetes and Exercise: Preventing Low Blood Sugar: blood sugar Indication: Diabetes type 2, controlled Current smoker : Follow up if no improvement or if symptoms worsen Indication: Current smoker Current smoker : Eprescribed prescriptions (G8553) Indication: Current smoker Current nonsmoker (Renamed from Current non-smoker) : Follow up if no improvement or if symptoms worsen Indication: Current nonsmoker (Renamed from Current non-smoker) Current nonsmoker (Renamed from Current non-smoker) : Eprescribed prescriptions (G8553) Indication: Current nonsmoker (Renamed from Current non-smoker) Hypertension : Follow up in 1 week Indication: Hypertension Hypertension : Eprescribed prescriptions (G8553) Indication: Hypertension Hypertension : Eprescribed prescriptions (G8553) Indication: Hypertension Leg wound, left : Flu (Influenza) *: flu Indication: Leg wound, left Leg wound, left : Eprescribed prescriptions (G8553) Indication: Leg wound, left Hypertension : *Mo Inhibitor Side Effects Indication: Hypertension Hypertension : Eprescribed prescriptions (G8553) Indication: Hypertension Arthritis : Follow up if no improvement or if symptoms worsen Indication: Arthritis Skin change : Reviewed Lab Indication: Skin change Infection : Follow up : wednesday to leg Indication: Infection Infection : Follow up tomorrow, as needed Indication: Infection Infection : Follow up tomorrow, as needed Indication: Infection Infection : Cellulitis: skin infection Indication: Infection Infection : Follow up tomorrow For iV vanco Indication: Infection Infection : Reviewed Lab Indication: Infection Skin change : Follow up with [facility] for IV vanco tomorrow am Indication: Skin change Skin change : Excision of a Skin Lesion: skin Indication: Skin change Non morbid obesity, unspecified obesity type : Follow up in 3 months Indication: Non morbid obesity, unspecified obesity type Non morbid obesity, unspecified obesity type : *Weight Loss Discussion Indication: Non morbid obesity, unspecified obesity type Hypertension : High Blood Pressure (Essential Hypertension) *: bp Indication: Hypertension Hypertension : Follow up in 3 months Indication: Hypertension SYMPTOM, ENLARGEMENT, LYMPH NODES : FOLLOW UP IN 2 WEEKS Indication: SYMPTOM, ENLARGEMENT, LYMPH NODES Hypercholesteremia : Reviewed Diagnostic Tests Indication: Hypercholesteremia Hypercholesteremia : Reviewed Lab Indication: Hypercholesteremia Hypercholesteremia : Cholesterol - Medication Side Effects Indication: Hypercholesteremia Hypercholesteremia : Cholesterol - Nonprescription Treatment Indication: Hypercholesteremia Hypercholesteremia : CHOLESTEROL MGMT. Indication: Hypercholesteremia Hypercholesteremia : CHOLESTEROL MGMT. Indication: Hypercholesteremia Non morbid obesity, unspecified obesity type : Weight Loss Discussion Indication: Non morbid obesity, unspecified obesity type CTS (carpal tunnel syndrome) : *Carpal Tunnel Education Indication: CTS (carpal tunnel syndrome) Planned Observations VITAMIN B-12 (CYANOCOBALAMIN) (09992)Indication: Paresthesia On: 24-Oeb-36551:56 Request URINALYSIS, W/ MICRO (90274)Indication: Uncontrolled type 2 diabetes mellitus On: 05-May-20187:37 Request MICROALBUMIN: CREATININE RATIO (19570) AND (30661)Indication: Uncontrolled type 2 diabetes mellitus On: :37 Request TSH (83505)Indication: Diabetes type 2, controlled On: :26 Request URINALYSIS, W/ MICRO (48985)Indication: Diabetes type 2, controlled On: :26 Request MICROALBUMIN: CREATININE RATIO (03444) AND (09334)Indication: Diabetes type 2, controlled On: :26 Request METABOLIC PANEL, COMPREHENSIVE (28397)Indication: Diabetes type 2, controlled On: :26 Request LIPOPROTEIN, BLD, BY NMR (95376)Indication: Hypercholesteremia On: :26 Request LIPID PANEL (88322)Indication: Hypercholesteremia On: :26 Request CBC with auto diff (31206)Indication: Diabetes type 2, controlled On: :26 Request Hemoglobin Glyclated (HGB A1C) (24885)Indication: Diabetes type 2, controlled On: :05 Request Metabolic Panel, Basic (45281)Indication: Leg wound, left On: :03 Request VANCOMYCIN, TROUGH (38536)Indication: Infection On: 36-Icf-15052:18 Request KEILA CULTURE-OTHER (49906)Indication: Infection On: 57-Caj-757947:01 Request Comments: rt leg MRSA Culture (62958)Indication: Skin change On: 22-Blp-481783:50 Request Comments: nose Metabolic Panel, Basic (21106)Indication: Abnormal blood chemistry On: 06-Ndy-593022:39 Request HEPATIC FUNCTION PANEL (19249)Indication: Hypercholesteremia On: 38-Vxj-887590:31 Request Comments: End of Sep LIPID PANEL (73406)Indication: Hypercholesteremia On: 18-Rvo-348825:31 Request Comments: To be drawn end september LIPID PANEL (12169)Indication: Hypercholesteremia On: 68-Hex-865566:47 Request Comments: Sep 2009 TSH (85197)Indication: Pain in unspecified joint On: 20-Elg-27688:57 Request TSH (07175)Indication: Hypertension, benign On: 77-Zrf-34458:52 Request Planned Encounters Medical; General Medical - On: 09-Dec-2018 7:15 [facility] Lupe Calvo DO, DO, Kathleen Planned Procedures [facility]ON[facility] COUNSELING On: 09-Sep-2018 Intent FOR OBESITY, 15 MINUTES (G0447)By: Lupe Calvo DO, DO, Kathleen PNEUM VAC ADLT/IMUMNOSPR, SBC/INTRM On: 09-Sep-2018 Intent (37253)By: Lupe Calvo DO Comments: lot:[id number]:feb 03 2020site/route: l arm subcu amt:0.5mlJasmin, FORESTRY AIDE Lupe Calvo DO DEXA SCAN AXIAL SKELETON (26393)By: On: 09-Sep-2018 Intent Lupe Calvo DO, DO, Kathleen SCREENING DIGITAL TOMOSYNTHESIS OF On: 09-Sep-2018 Intent BREAST (77377)By: Lupe Calvo DO, DO, Kathleen Nuclear Stress Test/Stress On: 24-Aug-2018 Intent SPECT/AdenosineBy: Umesh IRAHETA, Comments: with deg changes in spine and knees unable to be effective treadmill test Lupe Dueñas DO Echo CompleteBy: Umesh IRAHETA, On: 24-Aug-2018 Intent Lupe Dueñas DO ELECTROCARDIOGRAM, COMPLETE (ECG) On: 24-Aug-2018 Intent (32319)By: Lupe Calvo DO Comments: nsr no acute chg poor R wave progression no new chg Lupe Calvo DO ELECTROCARDIOGRAM, COMPLETE (ECG) On: 05-May-2018 Intent (49341)By: Lupe Calvo DO Comments: sinus salima no acute chg Lupe Calvo DO Toradol Injection, 30 mg On: 06-Dec-2017 Intent (J1885)By: Carolynn Srivastava CNP Toradol Injection, 30 mg On: 03-Dec-2017 Intent (J1885)By: Carolynn Srivastava CNP CT - Abdomen & Pelvis Stone On: 03-Dec-2017 Intent ProtocolBy: Carolynn Srivastava CNP ELECTROCARDIOGRAM, COMPLETE (ECG) On: 20-May-2017 Intent (98289)By: Lupe Calvo DO Comments: nsr no acute chg Lupe Calvo DO Aerosol Treatment (83086)By: On: 14-Jan-2017 Intent Barbi Johnson Comments: albulterol 0.83%more a/e no wheeze Aerosol Treatment (25841)By: Sivana On: 11-Jan-2017 Intent Carolynn MURRAY CAROTID ULTRASOUND (52878)By: Manan On: 09-Sep-2016 Intent Mumtaz ZHAO Rocephin Injection, 2 Gram On: 20-Sep-2015 Intent (J0696)By: Mago ZHAO, Kelly Santamaria Comments: IM Eprescribed prescriptions On: 01-Sep-2013 Intent (G8553)By: Lupe Calvo DO, DO, Kathleen Eprescribed prescriptions On: 25-Aug-2013 Intent (G8553)By: Lupe Calvo DO, DO, Kathleen IV Infusion (53099)By: Starr, On: 25-Aug-2013 Intent Barbi MCMAHON Vancoyin 2GM/premixedBy: On: 25-Aug-2013 Intent Barbi Clements LPN Comments: lot [id number] exp 09/29/14 Vancoymcin 1 gram premixedBy: On: 24-Aug-2013 Intent BEN Willis Comments: Lot #:[id number] date:79-0-5560Xwblln given:1 gram Route: IV Site given:right hand Given by: #22 gauge placed to right hand without difficulty per shiraz MCMAHON IV Needle placement (16256)By: On: 24-Aug-2013 Intent BEN Willis IV Infusion (55204)By: Lazaro On: 24-Aug-2013 Intent BEN Eprescribed prescriptions On: 24-Aug-2013 Intent (G8553)By: Lupe Calvo DO, DO, Kathleen Eprescribed prescriptions On: 23-Aug-2013 Intent (G8553)By: Vic Murry LPNn L IV Needle placement (78801)By: On: 23-Aug-2013 Intent Jeanmarie MCMAHON Janay L Comments: 1 gram vanc -- [id number] exp Megan, LPNIV Therapy [id number], 1 inchSite: L handTolerated: wellno redness or swelling, no s/s infiltrationMegan, BRANCH MANAGER HYDRATION IV INFUSION, INIT On: 23-Aug-2013 Intent (65437)By: Vic Murry LPNn L INFUSION, NORMAL SALINE SOLUTION , On: 22-Aug-2013 Intent 250 CC (Special Coverage Comments: lot # [id number] exp11/11 Instructions Apply. See MCM: 2049) (J7050)By: Marci Pardo LPN Vancoymcin 500mg/premixedBy: Edvin On: 22-Aug-2013 Intent Marci MCMAHON Comments: lot # [id number]- 09/29/14site-R antecuberoute-IVdose- 1GCHenderson BRANCH MANAGER IV Infusion (06568)By: Edvin MCMAHON, On: 22-Aug-2013 Intent Marci Comments: initiated in established line, flushed w/o difficulty with 2ML N/S, in R antecube, infusing on gravity pole at 14gtts/min, no s/s redness, swelling induration, tolerated well- Maribel Vancoymcin 500mg/premixedBy: Edvin On: 22-Aug-2013 Intent Marci MCMAHON Vancoymcin 500mg/premixedBy: Atif On: 21-Aug-2013 Intent Carolynn MURRAY Comments: Lot#[id number], Exp. Date 29Sep2014 IV Needle placement (21866)By: On: 21-Aug-2013 Intent Carolynn Srivastava CNP Comments: IV initiated in: R ACwith 22 gaugenumber of attempts: 1 attempt without difficulty or c/o voiced. Tolerated well: JQ INFUSION, NORMAL SALINE SOLUTION , On: 21-Aug-2013 Intent 250 CC (Special Coverage Instructions Apply. See MCM: 2049) (J7050)By: Carolynn Srivastava CNP Vancoymcin 500mg/premixedBy: Atif On: 21-Aug-2013 Intent Carolynn MURRAY EKG (00578)By: Marci Pardo LPN On: 18-Jul-2008 Intent Planned Medications INFUSION, NORMAL SALINE SOLUTION , 250 CC Ordered: 21-Aug-2013 Pending Carolynn Srivastava CNP INFUSION, NORMAL SALINE SOLUTION , 250 CC Ordered: 22-Aug-2013 Pending Marci Pardo LPN INJECTION, CEFTRIAXONE SODIUM, PER 250 MG Ordered: 20-Sep-2015 Pending Kelly Mercedes MD INJECTION, KETOROLAC TROMETHAMINE, PER 15 MG Ordered: 03-Dec-2017 Pending Carolynn Srivastava CNP INJECTION, KETOROLAC TROMETHAMINE, PER 15 MG Ordered: 06-Dec-2017 Pending Carolynn Srivastava CNP INJECTION, VANCOMYCIN HCL, 500 MG Ordered: 21-Aug-2013 Pending Carolynn Srivastava CNP INJECTION, VANCOMYCIN HCL, 500 MG Ordered: 21-Aug-2013 Pending Carolynn Srivastava CNP INJECTION, VANCOMYCIN HCL, 500 MG Ordered: 22-Aug-2013 Pending Delaney Pardo LPNe INJECTION, VANCOMYCIN HCL, 500 MG Ordered: 22-Aug-2013 Pending Luke Pardo LPNsie INJECTION, VANCOMYCIN HCL, 500 MG Ordered: 24-Aug-2013 Pending BEN Willis INJECTION, VANCOMYCIN HCL, 500 MG Ordered: 25-Aug-2013 Pending Barbi Clements LPN Instructions Name Dates Details Encounter for annual general medical examination with abnormal findings in adult : Patient Instructions Indication: Encounter for annual general medical examination with abnormal findings in adult Uncontrolled type 2 diabetes mellitus : obesity counseling Indication: Uncontrolled type 2 diabetes mellitus Dysuria : How to access health information online Indication: Dysuria Dysuria : How to access health information online - Detail Indication: Dysuria Dysuria : Patient Instructions Indication: Dysuria Uncontrolled type 2 diabetes mellitus : How to access health information online Indication: Uncontrolled type 2 diabetes mellitus Uncontrolled type 2 diabetes mellitus : How to access health information online - Detail Indication: Uncontrolled type 2 diabetes mellitus Uncontrolled type 2 diabetes mellitus : Patient Instructions Indication: Uncontrolled type 2 diabetes mellitus Diabetes type 2, controlled : How to access health information online Indication: Diabetes type 2, controlled Diabetes type 2, controlled : How to access health information online - Detail Indication: Diabetes type 2, controlled Diabetes type 2, controlled : Patient Instructions Indication: Diabetes type 2, controlled Low back pain : How to access health information online Indication: Low back pain Low back pain : How to access health information online - Detail Indication: Low back pain Low back pain : Patient Instructions Indication: Low back pain Lower abdominal pain : How to access health information online Indication: Lower abdominal pain Lower abdominal pain : How to access health information online - Detail Indication: Lower abdominal pain Lower abdominal pain : Patient Instructions Indication: Lower abdominal pain Diabetes type 2, controlled : How to access health information online Indication: Diabetes type 2, controlled Diabetes type 2, controlled : How to access health information online - Detail Indication: Diabetes type 2, controlled Diabetes type 2, controlled : Patient Instructions Indication: Diabetes type 2, controlled Diabetes type 2, controlled : How to access health information online Indication: Diabetes type 2, controlled Diabetes type 2, controlled : How to access health information online - Detail Indication: Diabetes type 2, controlled Diabetes type 2, controlled : Patient Instructions Indication: Diabetes type 2, controlled Current smoker : How to access health information online Indication: Current smoker Current smoker : How to access health information online - Detail Indication: Current smoker Current smoker : Patient Instructions Indication: Current smoker Current nonsmoker (Renamed from Current non-smoker) : How to access health information online Indication: Current nonsmoker (Renamed from Current non-smoker) Current nonsmoker (Renamed from Current non-smoker) : How to access health information online - Detail Indication: Current nonsmoker (Renamed from Current non-smoker) Current nonsmoker (Renamed from Current non-smoker) : Patient Instructions Indication: Current nonsmoker (Renamed from Current non-smoker) Hypertension : How to access health information online Indication: Hypertension Hypertension : How to access health information online - Detail Indication: Hypertension Hypertension : Patient Instructions Indication: Hypertension Hypertension : How to access health information online Indication: Hypertension Hypertension : How to access health information online - Detail Indication: Hypertension Hypertension : Patient Instructions Indication: Hypertension Leg wound, left : How to access health information online Indication: Leg wound, left Leg wound, left : How to access health information online - Detail Indication: Leg wound, left Leg wound, left : Patient Instructions Indication: Leg wound, left Hypertension : How to access health information online Indication: Hypertension Hypertension : How to access health information online - Detail Indication: Hypertension Hypertension : Patient Instructions Indication: Hypertension Hypertension : Patient Instructions Indication: Hypertension Infection : Patient Instructions Indication: Infection Infection : Patient Instructions Indication: Infection Infection : Patient Instructions Indication: Infection Infection : Patient Instructions Indication: Infection Hypertension : Patient Instructions Indication: Hypertension Arthritis : Patient Instructions Indication: Arthritis Encounters Office Visit On: 09-Sep-2018 7:09 Encounter Reason: Annual Medicare Exam - Yes the patient did have (0) a mini mental status exam done today. The activities of daily living the patient needs help with are none. The patient has driven in past 6 months, End: 09-Sep-2018 8:53 put area rugs through house and put handrails in bathroom, but the patient has not had fecal incontinence, had urinary incontinence, missed or ran out of medications to soon, fallen in the past 6 month s, gotten lost or has a medalert necklace or bracelet. The patient has completed the following preventative measures: mammography (years ago per emr). The patient does have living will. The patient has noticed dropping activities and interests, feeling something bad will happen, staying at home rather than doing something new or going out and lack of energy., [ADDITIONAL REASON] [facility] Exam - Pap smear: date of last pap: (years ago per emr). Encounter Diagnosis: Current nonsmoker (Renamed from Current non-smoker), Influenza vaccination declined (Renamed from Refused influenza vaccine), Nutritional counseling, Encounter for annual general medical examination with abnormal findings in adult, Colon cancer screening (Renamed from Encounter for screening for malignant neoplasm of colon), Encounter for screening mammogram for breast cancer (Renamed from Encounter for screening mammogram for malignant neoplasm of breast), Postmenopausal (Renamed from Postmenopausal status), Uncontrolled type 2 diabetes mellitus [facility] Phone Encounter On: 30-Aug-2018 9:07 Encounter Diagnosis: Bladder stone End: 30-Aug-2018 9:09 [facility] Office Visit On: 24-Aug-2018 8:11 Encounter Reason: Follow up for chronic medical issues - The patient does not feel well, has decreased energy level and is sleeping well. Patient has been compliant with instructions. Current medication use: no side effe End: 24-Aug-2018 8:59 cts and compliant with dosing regimen. Patient sleeps 5 hours per night. Nutrition: balanced diet and no supplemental vitamins & iron. The medical issues the patient is following up for include All identified problems below, asthma, depression, high blood pressure and high cholesterol. blood pressure range :.Encounter Diagnosis: Diabetes type 2, controlled, Influenza vaccination declined (Renamed from Refused influenza vaccine), Dysuria, BMI 39.0-39.9,adult, Paresthesia, Hypertension, Hypercholesteremia, Atypical chest pain [facility] Office Visit On: 05-May-2018 6:51 Encounter Reason: Follow up for chronic medical issues - The patient feels well with minor complaints, has good energy level and is sleeping well. Patient has been compliant with instructions. Current medication use: no End: 05-May-2018 7:50 side effects and compliant with dosing regimen. Patient sleeps 5 hours per night. Nutrition: balanced diet and no supplemental vitamins & iron. The medical issues the patient is following up for inc lude All identified problems below, asthma, depression, high blood pressure and high cholesterol.Encounter Diagnosis: Current smoker, BMI 40.0-44.9, adult, Hypercholesteremia, Nutritional counseling, Hypertension, Depression, Uncontrolled type 2 diabetes mellitus [facility] Office Visit On: 30-Dec-2017 7:00 Encounter Reason: Follow up for chronic medical issues - The patient feels well with minor complaints, has decreased energy level and is sleeping poorly. Patient has been compliant with instructions. Current medication u End: 30-Dec-2017 7:42 se: no side effects and compliant with dosing regimen. Patient sleeps 4 (4-6) hours per night. Nutrition: balanced diet and supplemental vitamins. The medical issues the patient is following up for incl ude All identified problems below, blood sugar issues, high blood pressure and high cholesterol.Encounter Diagnosis: Hypertension, Diabetes type 2, controlled, BMI 39.0-39.9,adult, Current nonsmoker (Renamed from Current non-smoker), Hypercholesteremia, Grieving, Protrusion of intervertebral disc of lumbosacral region [facility] Office Visit On: 06-Dec-2017 15:35 Encounter Reason: Follow up tests - Diagnostic tests include CT scan.Encounter Diagnosis: BMI 39.0-39.9,adult, Low back pain, Current nonsmoker (Renamed from Current non-smoker), Bladder stone End: 06-Dec-2017 16:14 [facility] Office Visit On: 03-Dec-2017 11:48 Encounter Reason: Abdominal pain - The onset of the pain has been acute and has been occurring in a persistent pattern for 4 days. The course has been constant. The pain is described as a moderate sharp pain, crampy, dul End: 03-Dec-2017 12:38 l ache and pressure sensation. The pain is described as being located in the lower abdomen. The pain radiates to the back (lower). Note for Pain: starts low abdomen and to low backEncounter Diagnosis: BMI 39.0-39.9,adult, Current nonsmoker (Renamed from Current non-smoker), Lower abdominal pain, Hematuria, Low back pain [facility] Phone Encounter On: 24-Sep-2017 7:34 Encounter Diagnosis: Arthritis End: 24-Sep-2017 7:39 [facility] Office Visit On: 24-Sep-2017 7:00 Encounter Reason: Follow up for chronic medical issues - The patient feels well with minor complaints, has decreased energy level and is sleeping poorly. Patient has been compliant with instructions. Current medication u End: 24-Sep-2017 7:29 se: no side effects and compliant with dosing regimen. Patient sleeps 5 hours per night. Nutrition: balanced diet and no supplemental vitamins & iron. The medical issues the patient is following up for include All identified problems below, blood sugar issues, high blood pressure and high cholesterol.Encounter Diagnosis: Diabetes type 2, controlled, BMI 39.0-39.9,adult, Current nonsmoker (Renamed from Current non-smoker), Hypercholesteremia, Hypertension, Carotid bruit, Influenza vaccination declined (Renamed from Refused influenza vaccine), Nutritional counseling [facility] Office Visit On: 20-May-2017 8:16 Encounter Reason: Follow up for chronic medical issues - The patient feels well with minor complaints, has decreased energy level and is sleeping poorly. Patient has been compliant with instructions. Current medication u End: 20-May-2017 9:39 se: no side effects and compliant with dosing regimen. Patient sleeps 5 hours per night. Nutrition: balanced diet and no supplemental vitamins & iron. The medical issues the patient is following up for include All identified problems below, blood sugar issues, high blood pressure and high cholesterol. blood pressure range :.Encounter Diagnosis: Diabetes type 2, controlled, Current smoker, Hypertension, BMI 39.0-39.9,adult, Hypercholesteremia, Depression [facility] Office Visit On: 14-Jan-2017 8:27 Encounter Reason: Follow up acute care visit - The patient does not feel well.Encounter Diagnosis: BMI 39.0-39.9,adult, Current smoker, Cough, Sinusitis, bacterial End: 14-Jan-2017 9:40 [facility] Office Visit On: 11-Jan-2017 9:06 Encounter Reason: Cold Symptoms - Symptoms include nasal congestion, scratchy throat, dry cough, facial pressure and facial pain. Onset was 1 week(s) ago. The patient describes this as unchanged. Associated symptoms incl End: 11-Jan-2017 10:01 ude ear pain, fatigue and weakness, while associated symptoms do not include nausea, vomiting or diarrhea. Current treatment includes oral decongestants. Note for Cold symptoms: cough and cold symptoms Encounter Diagnosis: BMI 39.0-39.9,adult, Current nonsmoker (Renamed from Current non-smoker), Flu-like symptoms, URI (upper respiratory infection) [facility] Office Visit On: 09-Sep-2016 9:14 Encounter Reason: HypertensionEncounter Diagnosis: Hypertension, Headache, Carotid bruit End: 09-Sep-2016 23:25 [facility] Office Visit On: 03-Apr-2016 8:19 Encounter Reason: Follow up for chronic medical issues - The patient does not feel well and has decreased energy level. Patient has been compliant with instructions. Current medication use: no side effects, compliant wit End: 03-Apr-2016 10:06 h dosing regimen and considered effective by patient. Patient sleeps 7 hours per night. Impact of disease: emotional impact-moderate. Nutrition: balanced diet and supplemental vitamins. The medical issu es the patient is following up for include blood sugar issues, depression, high blood pressure and other (obesity, arthritis ).Encounter Diagnosis: Diabetes type 2, controlled, Hypertension, Depression, Current smoker [facility] Office Visit On: 08-Oct-2015 8:30 Encounter Reason: Follow up acute care visit - The patient feeling better since last seen and improving. Patient has been compliant with instructions. Current medication use: no side effects. The medical issues the patie End: 08-Oct-2015 9:07 nt is following up for include cellulitis.Encounter Diagnosis: Leg wound, left, Hypertension, Diabetes type 2, controlled [facility] Office Visit On: 20-Sep-2015 8:40 Encounter Diagnosis: Hypertension, Current nonsmoker (Renamed from Current non-smoker), Leg wound, left, Obesity, unspecified (278.00) End: 20-Sep-2015 9:34 [facility] Error Encounter On: 10-May-2015 10:00 Encounter Diagnosis: Unspecified Diagnosis End: 10-May-2015 12:24 [facility] Office Visit On: 10-May-2015 9:09 Encounter Reason: Hypertension - The last clinic visit was 1 week(s) ago. Symptoms include headache, while symptoms do not include confusion, visual disturbance, dizziness or shortness of breath. Recent blood pressure randolph End: 10-May-2015 9:59 s been mostly > 190. The patient describes this as moderate in severity and unchanged. Symptoms are not exacerbated by stress, fatigue, weight gain, excess dietary salt, alcohol use or skipping medic ations. Symptoms are not relieved by stress management, weight loss, exercise, avoiding alcohol or medication. Associated symptoms include edema (ankles bilaterally). The patient is not currently being treated for this problem. Pertinent medical history includes diabetes, while pertinent medical history does not include retinopathy, dyslipidemia, angina, prior myocardial infarction, prior coronary rev ascularization, cerebral vascular accident, transient ischemic attack, dementia, heart failure, left ventricular hypertrophy, obstructive sleep apnea, peripheral artery disease, chronic kidney disease o r hyperthyroidism. Risk factors do not include obesity, physical inactivity, illicit drug use, alcohol use, smoking, smokeless tobacco use, nonsteroidal anti- inflammatory drugs, oral contraceptives or s timulant medication. Pertinent family history includes hypertension, cardiovascular disease, diabetes and obesity, while pertinent family history does not include dyslipidemia. The patient was previousl y evaluated in this clinic. Previous presentation included an elevated blood pressure during the examination, an elevated blood pressure from an outside reading, headache and edema.Encounter Diagnosis: Hypertension, arthritis,unspecified (716.90) [facility] Office Visit On: 01-Sep-2013 6:58 Encounter Reason: Skin Problems - The onset of the skin problems has been sudden and they have been occurring in a persistent pattern for 1 week. The course has been increasing. The problem is characterized as infection End: 01-Sep-2013 7:28 and a change in skin color. There has been associated pain, while there has been no fatigue or itching. Note for Skin problems: it really took a better turn for the better -- significant improvementEncounter Diagnosis: Skin change (782.9), Infection (136.9), Vaginal yeast infection (112.1) [facility] Office Visit On: 28-Aug-2013 7:59 Encounter Reason: Skin Problems - The onset of the skin problems has been sudden and they have been occurring in a persistent pattern for 1 week. The course has been increasing. The problem is characterized as infection End: 28-Aug-2013 8:39 and a change in skin color. There has been associated pain, while there has been no fatigue or itching. Note for Skin problems: it really took a better turn for the better -- significant improvementEncounter Diagnosis: Infection (136.9) [facility] Office Visit On: 25-Aug-2013 8:08 Encounter Reason: Skin Problems - The onset of the skin problems has been sudden and they have been occurring in a persistent pattern for 1 week. The course has been increasing. The problem is characterized as infection End: 25-Aug-2013 9:01 and a change in skin color. There has been associated pain, while there has been no fatigue or itching. Note for Skin problems: it really took a better turn for the better -- significant improvementEncounter Diagnosis: Infection (136.9) [facility] Office Visit On: 24-Aug-2013 6:56 Encounter Reason: Skin Problems - The onset of the skin problems has been sudden and they have been occurring in a persistent pattern for 1 week. The course has been increasing. The problem is characterized as infection End: 24-Aug-2013 11:13 and a change in skin color. There has been associated pain, while there has been no fatigue or itching.Encounter Diagnosis: Infection (136.9), Vaginal yeast infection (112.1) [facility] Office Visit On: 23-Aug-2013 8:14 Encounter Reason: Skin Problems - The onset of the skin problems has been sudden and they have been occurring in a persistent pattern for 1 week. The course has been increasing. The problem is characterized as infection End: 23-Aug-2013 8:54 and a change in skin color. There has been associated pain, while there has been no fatigue or itching.Encounter Diagnosis: Infection (136.9) [facility] Office Visit On: 22-Aug-2013 7:49 Encounter Reason: Follow up acute care visit - The patient feeling better since last seen and improving. Patient has been compliant with instructions. Current medication use: no side effects, compliant with dosing regime End: 22-Aug-2013 12:18 n and considered effective by patient. Patient sleeps 6 hours per night. The medical issues the patient is following up for include All identified problems below and other (MRSA).Encounter Diagnosis: Infection (136.9), Skin change (782.9) [facility] Office Visit On: 21-Aug-2013 13:28 Encounter Reason: Skin Problems - The onset of the skin problems has been sudden and they have been occurring in a persistent pattern for 1 week. The course has been increasing. The problem is characterized as infection End: 21-Aug-2013 16:18 and a change in skin color. There has been associated pain, while there has been no fatigue or itching.Encounter Diagnosis: Skin change (782.9), Infection (136.9) [facility] Office Visit On: 30-Jun-2013 8:10 Encounter Reason: Follow up for chronic medical issues - The patient feels well with minor complaints, has good energy level and is sleeping poorly. Patient has been compliant with instructions. Current medication use: n End: 30-Jun-2013 16:13 o side effects, compliant with dosing regimen and considered effective by patient. Patient sleeps 5 hours per night. The medical issues the patient is following up for include All identified problems be low, blood sugar issues (DM), high blood pressure, high cholesterol and other (Arthritis, CTS).Encounter Diagnosis: Diabetes Mellitus, Hypertension, Arthritis, Obesity, unspecified (278.00) [facility] Office Visit On: 28-Mar-2013 9:07 Encounter Reason: Follow up for chronic medical issues - The patient feels well with minor complaints (Arthritis), has decreased energy level and is sleeping poorly. Patient has been non-compliant (d/t cost) with instruc End: 28-Mar-2013 9:51 tions. Current medication use: non-compliant with dosing regimen. Patient sleeps 5 (broken) hours per night. The medical issues the patient is following up for include All identified problems below, blo od sugar issues (DM), high blood pressure, high cholesterol and other (arthritis).Encounter Diagnosis: Diabetes Mellitus, Hypertension [facility] Office Visit On: 07-Feb-2010 9:50 Encounter Reason: Follow up acute care visit - The patient feeling better since last seen. Patient has been compliant with instructions. Current medication use: experiencing side effects (itchiness--thinks maybe r/t the End: 07-Feb-2010 10:22 atb?). Patient sleeps 5 hours per night. Nutrition: poor nutrition. The medical issues the patient is following up for include other (lymphadenopathy). Encounter Diagnosis: SYMPTOM, ENLARGEMENT, LYMPH NODES (785.6), Hypercholesteremia (272.0) [facility] Office Visit On: 22-Jan-2010 11:37 Encounter Reason: Lymphadenopathy - The onset of the lymphadenopathy has been sudden and has been occurring in a persistent pattern for hours. The course has been constant. The lymphadenopathy is described as moderate. Encounter Diagnosis: End: 22-Jan-2010 12:06 SYMPTOM, ENLARGEMENT, LYMPH NODES (785.6) [facility] Office Visit On: 25-Jul-2008 9:55 Encounter Reason: Follow up, Laboratory Test Results - Date: (07/18/08). Current symptoms/reason for visit include/s Symptoms include joint pains and muscle pain. There is a family history of breast cancer (mother) and my End: 25-Jul-2008 12:45 ocardial infarction before age 55 (father) , while there is no family history of cardiovascular disease ,cystic fibrosis ,Down's syndrome or mental retardation. Past medical history includes elevated ch olesterol ,hypertension and other (arthritis, obesity). Encounter Diagnosis: Hypercholesteremia (272.0), Abnormal blood chemistry (790.6) [facility] Office Visit On: 18-Jul-2008 8:47 Encounter Reason: new patient female physical - Last seen more than 1 year ago. General health: feels well with minor complaints (pain in whole body) ,has decreased energy level and is sleeping poorly. The patient's appe End: 18-Jul-2008 13:29 tite is normal. Nutrition: no supplemental vitamins & iron. Exercises 0 (just plain work ) days per week. Sleeps on average 4 (anywhere from 4-6) hours per night. Normal bowel and bladder habits. Sa fety measures include appropriate use of safety belts and home smoke detectors. Current emotional problems include sleep disturbances (pain wakes me alot, think maybe arthritis, has back problems also). screening, colonoscopy (approx.2005, ) ,screening, mammography (approx 2005) ,screening, Pap smear (years ago, has had a total hysterectomy) and screening, visual acuity (2006 - ). Encounter Diagnosis: Hypercholesteremia (272.0), Carpal tunnel syndrome (354.0), ARTHRALGIAS 719.40, Hypertension,benign(401.1), PARASTHESIA (782.0), Obesity, unspecified (278.00), Skin lesion (709.9) [facility] Historical Summary On: 04-Jul-2008 12:21 [facility] End: 04-Jul-2008 12:24 Office Visit On: 04-Jul-2008 11:34 Encounter Reason: Skin lesion - The skin lesion appeared gradually and has been occurring for 30 years. It has been unchanging in size. The skin lesion is characterized as red and weeping. The skin lesion is located on t End: 04-Jul-2008 12:00 he genital area (above the hairline). Encounter Diagnosis: PRESSURE SORE (707.0), Tinea corporis (110.5) [facility] Payers MedicareUn[facility] Nifti Zaida Alanis; a guarantor
== END 2018-11-15 22:23 | disposition home or self-care (01) ==
LOC: ED 22:21
PROVIDERS: Emergency Provider Emergency Medicine; Family Provider Internal Medicine; PCP Internal Medicine
DX: N30.01 Acute cystitis with hematuria (principal); E11.9 Type 2 diabetes mellitus without complications; I10 Essential (primary) hypertension; Z79.84 Long term (current) use of oral hypoglycemic drugs; Z79.899 Other long term (current) drug therapy
CPT/HCPCS: 81001; 87086; 87088; 87186; 99283

== ENCOUNTER → 2018-12-14 09:58 | Outpatient (CLI) | payer MEDICARE, SELFPAY ==
[2018-11-15 19:51] VITALS: BMI 40.9
--- NOTE | 2018-12-14 10:05 | BI_ITS ---
MAMMOGRAPHY - BILATERAL SCREENING REASON FOR EXAM: Female, 68 years old. Routine annual screening examination. PERTINENT HISTORY: Mother with breast cancer. Remote left excisional breast biopsy. TECHNIQUE: Digital bilateral breast dhaval (3D mammographic acquisition) in the CC and MLO projections. 2-D mediolateral oblique (MLO) and craniocaudad (CC) views of both breasts were obtained. CAD: Full Field Digital Mammography with Computer Added Detection was performed. COMPARISON: No comparison mammograms available at this time. If any prior films become available, an addendum to this report can be generated. FINDINGS: Breast Composition: The breasts are almost entirely fatty. There are no dominant masses or suspicious calcifications. No other significant abnormalities are identified. BI/SCREENING MAMM (CAD), BILAT IMPRESSION: Negative screening mammogram. Yearly followup mammogram recommended. (A) ASSESSMENT CATEGORY: BIRADS Category 1: Negative. A letter regarding these results will be sent to the patient by the facility within 30 days. Approximately 10% of breast cancers are not detected by mammography. A normal mammogram should not delay biopsy of a clinically suspicious abnormality. [id number] Electronically Signed: Sergio Waite MD at 11:39 EST Tel [phone], Service support ,
--- NOTE | 2018-12-14 10:15 | BD_ITS ---
STUDY: DUAL ENERGY X-RAY ABSORPTIOMETRY / DXA REASON FOR EXAM: Female, 68 years old. Early menopause. Loss of height. TECHNIQUE: Bone Mineral Density (BMD) measurements of lumbar spine and bilateral hips were obtained. COMPARISON: None. FINDINGS: Lumbar Spine (L1-L4): g/cm2 (1.242) / T-score (0.4) / Z-score (2.0) Findings are suggestive of normal bone density with a low fracture risk. Left Femur Total: g/cm2 (0.907) / T-score (-0.8) / Z-score (0.4) Left Femoral Neck: g/cm2 (0.751) / T-score (-2.1) / Z-score (-0.6) Right Femur Total: g/cm2 (0.972) / T-score (-0.3) / Z-score (1.0) Right Femoral Neck: g/cm2 (0.783) / T-score (-1.8) / Z-score (10.3) BD/Dexa Bone Density Study IMPRESSION: The patient is considered osteopenic as outlined below according to World [employer] Organization (WHO) criteria with a moderate fracture risk. Reference Information: The T-score is the number of standard deviations above or below the standard which is normal for young adults at their peak bone mineral density. The World Health Organization (WHO) interprets the T-scores as follows: Above -1 Normal bone density Between -1 and -2.5 Osteopenia Equal to / or below -2.5 Osteoporosis As a practical clinical guideline, osteopenia may be graded as follows: Mild -1 through -1.5 Moderate -1.6 through -2.0 Severe -2.1 through -2.4 The Z-score is the number of standard deviations above or below age-matched controls. A Z-score of less than -1.5 would be considered abnormal. References: 1. NIH Osteoporosis and Related Bone Diseases http://www.osteo.org 2. International Society for Clinical Densitometry http://www.iscd.org 3. National Osteoporosis Foundation http://www.nof.org Electronically Signed: Sergoi Waite MD at 15:52 EST Tel [phone], Service support ,
--- OUTSIDE RECORDS SUMMARY | 2019-02-18 02:33 | XMS RPT_ITS | Continuity of Care Document ---
:1950 Author Organization [facility] Address [facility] [address] [place] [address] Phone Care Team Providers Name Role Phone Lupe Calvo DO Unavailable Emely Whitlock MD Unavailable Dr. Song Ledesma Unavailable Kelly Mercedes MD Unavailable Janay Murry LPN Unavailable Unavailable Anderson Pillai Unavailable Unavailable Unavailable Unavailable Problems Name Dates [...] stress at workBP at home:180/87, Do at [employer] Status: Active Influenza vaccination declined (Renamed from [...] [facility] boss fired [...] Comments: In her 20s Date Value Details 14-Dec-2018 Dexa Bone Density Study Result: Comments: See Note; NOTES: [facility] Imaging Services [address] [place] [address] Dexa Bone Density Study MR#: [id number] Acct: [id number] Name: KELLIE ALANIS Rep #: [id number] : 1950 F 68 From: Sergio Waite MD PCP: Carolynn Srivastava NP Status: REG CLI Study: Dexa Bone Density Study Date of Exam: 12/14/18 Exam# [id number] Ordering Dr: Lupe Calvo DO STUDY: DUAL ENERGY X-RAY ABSORPTIOMETRY / DXA REASON FOR EXAM: Female, 68 years old. Early menopause. Loss of height. TECHNIQUE: Bone Mineral Density (BMD) measurements of lumbar spine and bilateral hips wer e obtained. COMPARISON: None. FINDINGS: Lumbar Spine (L1-L4): g/cm2 (1.242) / T-score (0.4) / Z-score (2.0) Findings are suggestive of normal bone density with a l ow fracture risk. Left Femur Total: g/cm2 (0.907) / T-score (-0.8) / Z-score (0.4) Left Femoral Neck: g/cm2 (0.751) / T-score (-2.1) / Z-score (-0.6) Right Femur Total: g/cm2 (0.972) / T-score (-0.3) / Z-score (1.0) Right Femoral Neck: g/cm2 (0.783) / T-score (-1.8) / Z-score (10.3) BD/Dexa Bone Density Study IMPRESSION: The patient is consider ed osteopenic as outlined below according to World [...] osteopenia may be graded as follows: Mild - 1 through -1.5 Moderate -1.6 thro ugh -2.0 Severe -2.1 through -2.4 The Z-score is the number of standard deviations above or below age-matched controls. A Z-score of less than -1.5 would be considered abnormal. References: 1. NIH Ost eoporosis and Related Bone Diseases http://www.osteo.org 2. International Society for Clinical Densitometry http://www.iscd.org 3. National Osteoporosis Foundation http://www.nof.org Electronically Sig letitia: Sergio Waite MD at 15:52 EST Tel [phone], Service support , CC: Carolynn Srivastava NP; Lupe Calvo DO Medical Grade Shoemaker: Signed 14-Dec-2018 SCREENING MAMM (CAD), BILAT Result: Comments: See Note; NOTES: [facility] Imaging Services [address] [place] [address] SCREENING MAMM (CAD), BILAT MR#: [id number] Acct: [id number] Name: KELLIE ALANIS Rep #: [id number] : 1950 F 68 From: Sergio Waite MD PCP: Carolynn Srivastava NP Status: REG CLI Study: SCREENING MAMM (CAD), BILAT Date of Exam: 12/14/18 Exam# [id number] Ordering Dr: Lupe Calvo DO MAMMOGRAPHY - BILATERAL SCREENING REASON FOR EXAM: Female, 68 years old. Routine annual screening examination. PERTINENT HISTORY: Mother with breast cancer. Remote left excisional breast biopsy. DEB HNIQUE: Digital bilateral breast dhaval (3D mammographic acquisition) in the CC and MLO projections. 2-D mediolateral oblique (MLO) and craniocaudad (CC) views of both breasts were obtained. CAD: Full Fie ld Digital Mammography with Computer Added Detection was performed. COMPARISON: No comparison mammograms available at this time. If any prior films become available, an addendum to this report can be g enerated. FINDINGS: Breast Composition: The breasts are almost entirely fatty. There are no dominant masses or suspicious calcifications. No other significant abno rmalities are identified. 0010 BI/SCREENING MAMM (CAD), BILAT IMPRESSION: Negative screening mammogram. Yearly followup mammogram recommended. (A) __ ASSESSMENT CATEGORY: BIRADS Category 1: Negative. A letter regarding these results will be sent to the patient by the facility within 30 days. Approximately 10% of br east cancers are not detected by mammography. A normal mammogram should not delay biopsy of a clinically suspicious abnormality. [id number] Electronically Signed: Sergio Waite MD at 11:3 9 EST Tel [phone], Service support , CC: Carolynn Srivastava NP; Lupe Calvo DO Medical Grade Shoemaker: Signed 15-Nov-2018 Emergency Department Summary Result: Comments: See Note; NOTES: [facility] Medical Records Department [address] [place] [address] Emergency Department Summary 11/15/18 2204 MR#: [id number] Acct: [id number] Name: OLLIE ALANISYUE Santamaria Rep #: [id number] : 1950 68 From: Anjum Shook MD PCP: Lupe Calvo DO Status: DEP ER - ER Visit Summary Date of Service: 11/15/18 Chief Complaint: Blood in urine Histor y of Present Illness: The patient is a [...] she cannot fully empty her bladder. She de nies any fevers or chills. She denies any flank pain. She denies any nausea or vomiting. Physical Examination: Vital signs reviewed General: Well-nourished, well-developed Head: Normocephalic, atraumat ic Eyes: Pupils equal and reactive, extraocular muscles intact Neck, supple, no lymphadenopathy Heart: Regular rate and rhythm Respiratory: No distress, clear bilaterally Abdomen: Soft, nontender, nondi stended, no peritoneal signs Back: Nontender Extremities: Nontender, no edema, no cords Skin: Normal color no rash Neuro: Alert and oriented, no focal or lateralizing deficits Test Results: [] Emergen cy Department Course and Treatment: Urine was obtained in triage. The patient does have evidence of acute cystitis. There is not significant blood. I do feel that this is likely hemorrhagic cystitis. Sh alex has no flank pain. She is no fevers or chills. Culture was added. The patient will be treated with Macrobid. She was counseled concerning symptoms and reasons to return. She will be discharged home. Treatment Plan: [] Disposition: Discharge Impression: 1. Acute hemorrhagic cystitis This note was generated with [employer] dictation software. It may contain incorrect words, spelling, and punctuation that were not noted in review of the chart prior to signing ED Disposition - Plan for ED Patient: Chief Complaint: Complaint Instructions: ED UTI Cystitis Female Prescriptions: Nitrofurantoin Mac rocrystals [Macrobid] 100 mg PO Q12 #14 cap Referrals: Lupe Calvo, DO [Primary Care Provider] - What to do if you have Problems For any increased pain, shortness of breath, bleeding, nausea or vomiting, chest pain, or any unexpected problems, contact your Primary Care Provider. Call [facility] ([phone]) or report to the closest Emergency Room. Call 911 if necessary. 11/15/18 0747 <Electronically signed by Anjum Shook MD> Date Anjum Shook MD Cosigner Signature (If Indicated): Date CC: Lupe Calvo DO 16-Sep-2018 Echo, Complete w/ Contrast Result: Comments: See Note; NOTES: [facility] Cardiovascular Services [address] [place] [address] Echo Complete W/ Contrast 09/16/18 0846 MR#: [id number] Acct: [id number] Name: KELLIE ALANIS Rep #: [id number] : 1950 67 From: Israel Grajeda MD Attending Dr: Lupe Calvo DO Status: REG CLI Ordering Dr: Lupe Calvo DO Date: 09/16/18 Location: [facility] Sex: F C Admitted: Reason For Study: [...] MD CC: Lupe Calvo DO Date Dictated: 09/16/18 0846 Date Transcribed: 09/16/182115 Medical Grade Shoemaker: Signed 16-Sep-2018 Stress Report Result: Comments: See Note; NOTES: [facility] Cardiovascular Services [address] [facility] [place] [address] MR#: [id number] Acct: [id number] Name: OLLIE ALANISYUE Santamaria Rep #: [id number] : [birth year] 67 From: Israel Grajeda MD [...] 70 %. This note was generated with [employer] dictation software. It may contain incorrect words, spelling, and punctuation that were not noted in checking the note before signing. 09/16/18 1550 <Electronically signed by Israel Grajeda MD> Date Israel Grajeda MD CC: Lupe Calvo DO Date Dictated: 09/16/181545 Date Transcribed: 09/16/181545 Medical Grade Shoemaker: PM Signed 30-Jul-2018 Urgent Care Visit Report Result: Comments: See Note; NOTES: [facility] [address] [place] [address] OFFICE VISIT Date of Service: 07/30/18 MR#: [id number] Acct: [id number] Name: KELLIE ALANIS Rep #: [id number] : 1950 Provider: CIRA Mehta Age/Sex: 67/F Location: [facility] Status: Signed Intake Vital Signs07/30/18 Height 5 [...] of vision, headache(s) or memory loss Ps ych Psychiatric: No change in appetite, No confusion, [...] Appear ance: obese Orientation: alert, oriented x3 HENMT Head: normal to inspection, normocephalic Ears: hearing [...] normal Judgment: fair Results BMSUA Office Urine Sandy r YELLOW Last Edit by Jana Browning [...] he and patient are aware she may picker the triamcinolone cream now, but NOT to picker the MDP until tomorrow, once BP under controll. Patient state she will go to e ER form here for her markedly [...] without Cont Result: Comments: See Note; NOTES: [facility] Imaging Services [address] [place] [address] Abdomen/Pelvis without Cont MR#: [id number] Acct: [id number] Name: KELLIE ALANIS Rep #: [id number] : 1950 F 67 From: Rui Gould DO PCP: Carolynn Srivastava NP Status: REG CLI Study: Abdomen/Pelvis without Cont Date of Exam: 12/04/17 Exam# [id number] Ordering Dr: Carolynn Srivastava STUDY: CT ABDOME [...] Rui Gould DO at 11:57 EST Tel [phone], Service support , CC: Carolynn Srivastava NP Medical Grade Shoemaker: Signed 04-Dec-2017 Abdomen/Pelvis without Cont Result: Comments: See Note; NOTES: [facility] Imaging Services [address] [place] [address] Abdomen/Pelvis without Cont MR#: [id number] Acct: [id number] Name: ANNABELLEKELLIE M Rep #: [id number] : 1950 F 67 From: Rui Gould DO PCP: Carolynn Srivastava NP Status: REG CLI Study: Abdomen/Pelvis without Cont Date of Exam: 12/04/17 Exam# [id number] Ordering Dr: Carolynn Srivastava ADDENDUM by Rui Gould DO on 12/04/[address]/Abdomen/Pelvis without Cont 12/04/17 1206 Date cc: Carolynn Srivastava NP * Signed ADDENDUM by Rui Gould DO on 12/04/17 at 1159 ADDENDUM ADDENDUM: Spurring posteriorly at T12-L1 protruding into the spinal canal. Possible right-sided disc protr usion at L5-S1. Electronically Signed: Rui Gould DO at 11:59 EST Tel [phone], Service support , 12/04/17 115 Date cc: Carolynn Srivastava FAST FOOD ATTENDANT * Si gned STUDY: CT ABDOMEN AND [...] Gould DO a t 11:57 EST Tel [phone], Service support , CC: Carolynn Srivastava NP Medical Grade Shoemaker: Signed Family History Unknown Family Member Name [...] 0.00 cm Results Date Description Value Details 68-Qdc-490081:44 Urinalysis, Complete Comments: Order Date: 11/15/18COLOR OF URINE MAY AFFECT DIPSTICK RESULTS.How was Urine Obtained? [facility] [address] [place], [address] MUCUS, URINE 0 SEEN {/hpf} (Normal) BACTERIA 0 SEEN {/hpf} (Normal) SQUAM EPI 0 SEEN {/hpf} (Normal) Range: 5-10 RBC-UA > 100 SEEN {/hpf} (Normal) Range: 0-5 Comments: Microscopic field is filled. Other elements may beobscured. WBC 0 SEEN {/hpf} (Normal) Range: 0-5 LEUK ESTERASE 500 /ul (Abnormal) OCCULT BLOOD-UR 250 /ul (Abnormal) NITRITE UR Negative (Normal) UROBILI Normal mg/dL (Normal) PROT DIPSTX 100 mg/dL (Abnormal) pH UR 6.5 (Normal) Range: 5.0 - 8.0 SP.GR. DIPSTX 1.015 (Normal) Range: 1.002-1.030 KETONE UR 5 mg/dL (Abnormal) BILIRUBIN URINE Negative mg/dL (Normal) GLUCOSE, UR Normal mg/dL (Normal) CLARITY Cloudy (Normal) COLOR Red (Normal) :12 Albumin/Creatinine Ratio,Urine Comments: PATIENT WAS FASTINGPERFORMED BY: [employer] [facility] [id number] Alb/Creat Ratio 6.0 {mg/g_creat} (Normal) Range: 0.0-30.0 Comments: Normal: 0.0 - 30.0 Albuminuria: 31.0 - 300.0 Clinical albuminuria: >300.0 Albumin, Urine 3.3 ug/mL (Normal) Creatinine, Urine 54.6 mg/dL (Normal) :12 Microscopic Examination Comments: PATIENT WAS FASTINGPERFORMED BY: [id number] [facility] hospital [id number] Bacteria Few (Normal) Mucus Threads Present (Normal) Epithelial Cells (non renal) 0-10 {/hpf} (Normal) Range: 0 - 10 RBC 0-2 {/hpf} (Normal) Range: 0 - 2 WBC 0-5 {/hpf} (Normal) Range: 0 - 5 :12 Urinalysis, Complete Comments: PATIENT WAS FASTINGPERFORMED BY: [facility] [id number] Microscopic Examination See below: (Normal) Comments: Microscopic was indicated and was performed. Nitrite, Urine Negative (Normal) Urobilinogen,Semi-Qn 0.2 mg/dL (Normal) Range: 0.2-1.0 Bilirubin Negative (Normal) Occult Blood Negative (Normal) Ketones Negative (Normal) Glucose Negative (Normal) Protein Negative (Normal) WBC Esterase 1+ (Abnormal) Appearance Clear (Normal) Urine-Color Yellow (Normal) pH 7.0 (Normal) Range: 5.0-7.5 Specific Capron 1.016 (Normal) Range: 1.005-1.030 Vitamin B12 399 pg/mL (Normal) Comments: PATIENT WAS FASTINGPERFORMED BY: [id number] [facility] hospital [id number] :12 Range: 232-1245 :15 URINE KEILA CULTURE-IDENTIFICATN Comments: PERFORMED BY: [employer]70 [facility] HospitalWiketsCritical access hospital [id number] Information: SRC: (40046) Antimicrobial MIHEAD (Normal) Comments: S = Susceptible; [...] Final report Culture,Comprehensive (Abnormal) :15 Urinalysis, Office (90286) UA - LEUKOCYTE ESTERASE Trace (Normal) UA - NITRITE Negative (Normal) URINE UROBILINGN KATY TIMED Normal mg/dL (Normal) UA - PROTEIN Negative mg/dL (Normal) UA - PH 7 (Normal) UA - BLOOD non-hemolyzed trace (Normal) UA - SPECIFIC GRAVITY 1.015 (Normal) UA - KETONES Negative mg/dL (Normal) UA - BILIRUBIN Negative (Normal) UA - GLUCOSE Negative (Normal) :14 HgA1C , Office (60299) HgA1C , Office 5.8 % (Normal) Range: 4.6 - 7.1 :14 Blood Glucose , Office (14181) Blood Glucose , Office 120 (Normal) :12 TSH (86013) Comments: PATIENT WAS FASTINGPERFORMED BY: [employer] LabCoSSEVWtcqce7805 [facility] [id number] TSH 2.630 {uIU/mL} (Normal) Range: 0.450-4.500 :12 METABOLIC PANEL, COMPREHENSIVE Comments: PATIENT WAS FASTINGPERFORMED BY: [employer] [facility] Xinqvl9542 [facility] [id number] (92372) ALT (SGPT) 23 [iU]/L (Normal) Range: 0-32 [...] 8-27 Glucose 113 mg/dL (Abnormal) Range: 65-99 :12 LIPID PANEL (88823) Comments: PATIENT WAS FASTINGPERFORMED BY: [facility] [id number] LDL/HDL Ratio 2.6 {ratio} (Normal) Range: 0.0-3.2 Comments: LDL/HDL Ratio Men Women 1/2 Avg.Risk 1.0 1.5 Av g.Risk 3.6 3.2 2X Avg.Risk 6.2 5.0 3X Avg.Risk 8.0 6.1 LDL Cholesterol Calc 162 mg/dL (Abnormal) Range: 0-99 VLDL Cholesterol Candelario 21 mg/dL (Normal) Range: 5-40 HDL Cholesterol 63 mg/dL (Normal) Triglycerides 103 mg/dL (Normal) Range: 0-149 Cholesterol, Total 246 mg/dL (Abnormal) Range: 100-199 82-Wac-87230:12 CBC W/AUTO DIFF WBC (40760) Comments: PATIENT WAS FASTINGPERFORMED BY: [facility] [id number] Immature Grans (Abs) 0.0 {x10E3/uL} (Normal) Range: [...] (Normal) Range: 3.4-10.8 :53 HgA1C , Office (19838) HgA1C , Office 7.7 % (Abnormal) Range: 4.6 - 7.1 :53 Blood Glucose , Office (88525) Blood Glucose , Office 111 (Normal) :01 HgA1C , Office (65972) HgA1C , Office 5.5 % (Normal) Range: 4.6 - 7.1 :01 Blood Glucose , Office (82901) Blood Glucose , Office 126 (Normal) Comments: pt is fasting 6-Zoa-161785:33 URINE KEILA CULTURE-IDENTIFICATN Comments: PATIENT NOT FASTINGPERFORMED BY: [facility] Zuzkng7254 [facility] [id number] Information: SRC:KENDALL (77795) Antimicrobial MIHEAD (Normal) Comments: S = Susceptible; [...] mL (Abnormal) Urine Final report Culture,Comprehensive (Abnormal) 4-Wqp-435441:54 Urinalysis, Office (07720) UA - LEUKOCYTE ESTERASE Negative (Normal) UA - NITRITE Negative (Normal) URINE UROBILINGN KATY TIMED 2 mg/dL (Normal) UA - PROTEIN Negative mg/dL (Normal) UA - PH 5.0 (Normal) UA - BLOOD Hemolyzed Trace (Normal) UA - SPECIFIC GRAVITY 1.015 (Normal) UA - KETONES Negative mg/dL (Normal) UA - BILIRUBIN Negative (Normal) UA - GLUCOSE Negative (Normal) 46-Sts-05257:01 HgA1C , Office (96859) HgA1C , Office 5.5 % (Normal) Range: 4.6 - 7.1 :01 Blood Glucose , Office (14432) Blood Glucose , Office 105 (Normal) 65-Ieb-330224:16 TSH (74098) Comments: PATIENT WAS FASTINGPERFORMED BY: [facility] [id number] TSH 1.770 {uIU/mL} (Normal) Range: 0.450-4.500 79-Rsu-336391:16 MICROALBUMIN: CREATININE RATIO Comments: PATIENT WAS FASTINGPERFORMED BY: [facility] HospitalWiketsCritical access hospital [id number] (76193) AND (85053) Microalb/Creat Ratio <10.4 {mg/g_creat} (Normal) Range: 0.0-30.0 Microalbumin, Urine <3.0 ug/mL (Normal) Creatinine, Urine 28.9 mg/dL (Normal) 72-Sgw-457481:16 METABOLIC PANEL, COMPREHENSIVE Comments: PATIENT WAS FASTINGPERFORMED BY: [employer] Htjefj8247 [facility] [id number] (77044) ALT (SGPT) 19 [iU]/L (Normal) Range: 0-32 [...] Glucose, Serum 99 mg/dL (Normal) Range: 65-99 68-Vgj-585547:16 LIPID PANEL (26192) Comments: PATIENT WAS FASTINGPERFORMED BY: [employer]lin6370 [facility] [id number] LDL/HDL Ratio 2.4 {ratio_units} (Normal) Range: 0.0-3.2 Comments: LDL/HDL Ratio Men Women 1/2 Avg.Risk 1.0 1.5 Av g.Risk 3.6 3.2 2X Avg.Risk 6.2 5.0 3X Avg.Risk 8.0 6.1 LDL Cholesterol Calc 149 mg/dL (Abnormal) Range: 0-99 VLDL Cholesterol Candelario 20 mg/dL (Normal) Range: 5-40 HDL Cholesterol 63 mg/dL (Normal) Triglycerides 102 mg/dL (Normal) Range: 0-149 Cholesterol, Total 232 mg/dL (Abnormal) Range: 100-199 :16 CBC W/AUTO DIFF WBC (30673) Comments: PATIENT WAS FASTINGPERFORMED BY: LabCoKessler Institute for RehabilitationOwyhpv9448 [facility] [id number] Immature Grans (Abs) 0.0 {x10E3/uL} (Normal) Range: [...] (Normal) Range: 3.4-10.8 :20 HgA1C , Office (29928) HgA1C , Office 5.6 % (Normal) Range: 4.6 - 7.1 :20 Blood Glucose , Office (98611) Blood Glucose , Office 127 (Normal) :24 Rapid Flu (66354 x 2) Influenza A Ag negative (Normal) :24 HgA1C , Office (77869) HgA1C , Office 6.1 % (Normal) Range: 4.6 - 7.1 :12 VANT 3.8 ug/ml (Abnormal) Range: 5.0-15.0 Comments: VANCOMYCIN STANDARED DRUG THERAPY TROUGH LEVEL:5.0 - 15.0 mg/LVANCOMYCIN HIGH INTENSITY THERAPY TROUGH LEVEL:15.0 - 20.0 mg/LHigh Intensity therapy recommended for serious lifethreatening infections inc lude:- Lpctlpjdtf-Jwxoedvdiqju-Ffkyijwib (Ventilator/Healtcare Associated)- SepsisPLEASE CONTACT PHARMACY SERVICES (#0171) FOR INTERPRETATIONOF RESULTS. :17 CUW WC See Note (Normal) Comments: If further studies are desired, please contact theMicrobiology Laboratory within 48 hours. AMOUNT GROWTH VERY RARE ORGANISM 1: COAG NEGATIVE STAPH GS See Note (Normal) Comments: GRAM STAIN2+ RED CELL STROMANO ORGANISMS SEEN 32-Sop-554105:30 MRSAD tMRSA Negative (Normal) SOURCE: NASAL SWAB (Normal) :03 Metabolic Panel, Basic Comments: PATIENT NOT FASTINGPERFORMED BY: LabCoKessler Institute for RehabilitationIgxwlc8759 [facility] [id number] Information: [id number] (33915) Calcium, Serum 10.0 mg/dL (Normal) Range: 8.6-10.2 [...] Range: 65-99 :46 Blood Glucose , Office (23474) Comments: 110 Blood Glucose , Office 110 (Normal) :12 HgA1C , Office (08607) Comments: 5.9 HgA1C , Office 5.9 % (Normal) Range: 4.6 - 7.1 :03 TSH (39196) Comments: PATIENT NOT FASTINGPERFORMED BY: [facility] [id number] TSH 2.030 {uIU/mL} (Normal) Range: 0.450-4.500 :15 HgA1C , Office (35907) HgA1C , Office 6.1 % (Normal) Range: 4.6 - 7.1 :15 Blood Glucose , Office (95568) Blood Glucose , Office 92 (Normal) 09-Yoa-445808:53 LEFT HEART CATH/COR/LV PERCUT Radiology Report See Note (Normal) Comments: Exam Number: [id number] Procedure completed. Please see MEDICAL RECORDS reports in PCI -OP - OP NOTELET - LETTER. Reported By: MELVIN ARCEO M.D. 50-Laj-724268:27 TSH (19706) Comments: PATIENT NOT FASTINGPERFORMED BY: [employer] Nqytbb0566 [facility] [id number] TSH 1.728 {uIU/mL} (Normal) Range: 0.350-5.500 Comments: Adult TSH concentrations below 5.5 uIU/mL do not rule out the presence of subclinical hypothyroidism. . *EFFECTIVE JULY 23, 2008 the adult reference interval for TSH will be changing to: 0.450 - 4.500 uIU/mL. 41-Hjf-106746:27 C-REACTIVE PROTEIN (66636) Comments: PATIENT NOT FASTINGPERFORMED BY: [employer] [facility] Plkjjj4789 [facility] [id number] C-Reactive Protein, Quant 6.2 mg/L (Abnormal) Range: 0.0-4.9 72-Khy-412276:27 SED RATE ERYTHROCYTE (47255) Comments: PATIENT NOT FASTINGPERFORMED BY: [facility]6370 [facility] [id number] Sedimentation Rate-Westergren 10 mm/h (Normal) Range: 0-30 94-Qqd-380298:27 VITAMIN B-12 (CYANOCOBALAMIN) Comments: PATIENT NOT FASTINGPERFORMED BY: [place] [id number] [facility] [id number] (75712) Vitamin B12 309 pg/mL (Normal) Range: 211-911 40-Lzy-540816:27 MICROALBUMIN URINE QUANT Comments: PATIENT NOT FASTINGPERFORMED BY: [facility]6370 [facility] [id number] (98770) Microalbum.,U,Random 3.4 ug/mL (Normal) Range: 0.0-17.0 56-Zhr-637537:27 URINALYSIS W/O MICRO (21032) Comments: PATIENT NOT FASTINGClinical Information: ADD DRAW FEE 369988 ADD J 70529 PERFORMED BY: ditloWilliam [place] [id number] [facility] [id number] Appearance Clear (Normal) Bilirubin Negative (Normal) Glucose Negative (Normal) Ketones Negative (Normal) Microscopic Examination MICRON (Normal) Comments: Microscopic follows if indicated. Nitrite, Urine Negative (Normal) Occult Blood Negative (Normal) pH 7.0 (Normal) Range: 5.0-7.5 Protein Negative (Normal) Specific Capron 1.012 (Normal) Range: 1.005-1.030 Urine-Color Yellow (Normal) [...] Infection : Follow up : wednesday to Indication: Infection Infection : Follow up tomorrow, as needed Indication: Infection Infection : Follow up tomorrow, as needed Indication: Infection Infection : Cellulitis: skin infection Indication: Infection Infection : Follow up tomorrow For iV vanco Indication: Infection Infection : Reviewed Lab Indication: Infection Skin change : Follow up with [facility] for IV vanco tomorrow am Indication: [...] tunnel syndrome) Planned Observations VITAMIN B-12 (CYANOCOBALAMIN) (78443)Indication: Paresthesia On: 73-Lhv-18720:56 Request URINALYSIS, W/ MICRO (21052)Indication: Uncontrolled type 2 diabetes mellitus On: :37 Request MICROALBUMIN: CREATININE RATIO (66856) AND (16344)Indication: Uncontrolled type 2 diabetes mellitus On: :37 Request TSH (42113)Indication: Diabetes type 2, controlled On: :26 Request URINALYSIS, W/ MICRO (40837)Indication: Diabetes type 2, controlled On: :26 Request MICROALBUMIN: CREATININE RATIO (29867) AND (49844)Indication: Diabetes type 2, controlled On: :26 Request METABOLIC PANEL, COMPREHENSIVE (78574)Indication: Diabetes type 2, controlled On: :26 Request LIPOPROTEIN, BLD, BY NMR (61385)Indication: Hypercholesteremia On: :26 Request LIPID PANEL (77217)Indication: Hypercholesteremia On: :26 Request CBC with auto diff (54263)Indication: Diabetes type 2, controlled On: :26 Request Hemoglobin Glyclated (HGB A1C) (77969)Indication: Diabetes type 2, controlled On: :05 Request Metabolic Panel, Basic (35920)Indication: Leg wound, left On: :03 Request VANCOMYCIN, TROUGH (49157)Indication: Infection On: :18 Request KEILA CULTURE-OTHER (35532)Indication: Infection On: 21-Yyb-405746:01 Request Comments: rt leg MRSA Culture (50364)Indication: Skin change On: 82-Urb-956995:50 Request Comments: nose Metabolic Panel, Basic (28106)Indication: Abnormal blood chemistry On: 45-Xlh-100405:39 Request HEPATIC FUNCTION PANEL (35952)Indication: Hypercholesteremia On: :31 Request Comments: End sep LIPID PANEL (94254)Indication: Hypercholesteremia On: :31 Request Comments: To be drawn end september LIPID PANEL (14110)Indication: Hypercholesteremia On: 25-Gov-206632:47 Request Comments: Sep 2009 TSH ([id number])Indication: Pain in unspecified joint On: :57 Request TSH ([id number])Indication: Hypertension, benign On: :52 Request Planned Encounters Medical; Review Results - On: 15-Dec-2018 7:00 [facility] Lupe Calvo DO, DO, Kathleen Planned Procedures [id number] BEHAVIORAL COUNSELING On: 09-Sep-2018 Intent FOR OBESITY, 15 MINUTES (G0447)By: Lupe Calvo DO, DO, Kathleen PNEUM VAC ADLT/IMUMNOSPR, SBC/INTRM On: 09-Sep-2018 Intent ([id number])By: Lupe Calvo DO Comments: lot:[id number]:feb 03 2020site/route: l arm subcu amt:0.5mlJasmin, PLC TECHNICIAN Lupe Calvo DO DEXA SCAN AXIAL SKELETON ([id number])By: On: 09-Sep-2018 Intent Lupe Calvo DO, DO, Kathleen SCREENING DIGITAL TOMOSYNTHESIS OF On: 09-Sep-2018 Intent BREAST ([id number])By: Lupe Calvo DO, DO, Kathleen Nuclear Stress Test/Stress On: 24-Aug-2018 Intent SPECT/AdenosineBy: Umesh IRAHETA, Comments: with deg changes in spine and knees unable to be effective treadmill test Lupe Dueñas DO Echo CompleteBy: Umesh IRAHETA, On: 24-Aug-2018 Intent Lupe Dueñas DO ELECTROCARDIOGRAM, COMPLETE (ECG) On: 24-Aug-2018 Intent ([id number])By: Lupe Calvo DO Comments: nsr no acute chg poor R wave progression no new chg Lupe Calvo DO ELECTROCARDIOGRAM, COMPLETE (ECG) On: 05-May-2018 Intent ([id number])By: Lupe Calvo DO Comments: sinus salima no acute chg Lupe Calvo DO Toradol Injection, 30 mg On: 06-Dec-2017 Intent ([id number])By: Carolynn Srivastava CNP Toradol Injection, 30 mg On: 03-Dec-2017 Intent ([id number])By: Carolynn Srivastava CNP CT - Abdomen & Pelvis Stone On: 03-Dec-2017 Intent ProtocolBy: Carolynn Srivastava CNP ELECTROCARDIOGRAM, COMPLETE (ECG) On: 20-May-2017 Intent ([id number])By: Lupe Calvo DO Comments: nsr no acute chg Lupe Calvo DO Aerosol Treatment (97192)By: On: 14-Jan-2017 Intent Barbi Johnson Comments: albulterol 0.83%more a/e no wheeze Aerosol Treatment (98249)By: Sivana On: 11-Jan-2017 Intent Carolynn MURRAY CAROTID ULTRASOUND (67580)By: Manan On: 09-Sep-2016 Intent Mumtaz ZHAO Rocephin Injection, 2 Gram On: 20-Sep-2015 Intent ([id number])By: Kelly Mercedes MD Comments: IM Eprescribed prescriptions On: 01-Sep-2013 Intent (G8553)By: Lupe Calvo DO, DO, Kathleen Eprescribed prescriptions On: 25-Aug-2013 Intent (G8553)By: Lupe Calvo DO, DO, Kathleen IV Infusion (12090)By: Starr, On: 25-Aug-2013 Intent Barbi MCMAHON Vancoymcin 2GM/premixedBy: On: 25-Aug-2013 Intent Barbi Clements LPN Comments: lot [id number] exp 09/29/14 Vancoymcin 1 gram premixedBy: On: 24-Aug-2013 Intent BEN Willis Comments: Lot #:[id number] date:91-0-3644Tfvhkj given:1 gram Route: IV Site given:right hand Given by: #22 gauge placed to right hand without difficulty per shiraz MCMAHON IV Needle placement (31419)By: On: 24-Aug-2013 Intent BEN Willis IV Infusion ([id number])By: Lazaro, On: 24-Aug-2013 Intent BEN Eprescribed prescriptions On: 24-Aug-2013 Intent (G8553)By: Lupe Calvo DO, DO, Kathleen Eprescribed prescriptions On: 23-Aug-2013 Intent (G8553)By: Vic Murry LPNn L IV Needle placement (73558)By: On: 23-Aug-2013 Intent Jeanmarie MCMAHON Janay L Comments: 1 gram vanc -- [id number] exp Megan, LPNIV Therapy [id number], 1 inchSite: L handTolerated: wellno redness or swelling, no s/s infiltrationgan, PLANNING MANAGER HYDRATION IV INFUSION, INIT On: 23-Aug-2013 Intent ([id number])By: Janay Murry LPN L INFUSION, NORMAL SALINE SOLUTION , On: 22-Aug-2013 Intent 250 CC (Special Coverage Comments: lot # [id number] exp11/11 Instructions Apply. See MCM: 2049) ([id number])By: Marci Pardo LPN Vancoymcin 500mg/premixedBy: Edvin On: 22-Aug-2013 Intent Marci MCMAHON Comments: lot # [id number]- 09/29/14site-R antecuberoute-IVdose- 1GCHenderson PLANNING MANAGER IV Infusion ([id number])By: Edvin MCMAHON, On: 22-Aug-2013 Intent Marci Comments: initiated in established line, flushed w/o difficulty with 2ML N/S, in R antecube, infusing on gravity pole at 14gtts/min, no s/s redness, swelling induration, tolerated well- CHenorlandoLPN Vancoymcin 500mg/premixedBy: Edvin On: 22-Aug-2013 Intent Marci MCMAHONoymcin 500mg/premixedBy: Atif On: 21-Aug-2013 Intent Carolynn MURRAY Comments: Lot#[id number], Exp. Date 29Sep2014 IV Needle placement (89154)By: On: 21-Aug-2013 Intent Carolynn Srivastava CNP Comments: IV initiated in: R ACwith 22 gaugenumber of attempts: 1 attempt without difficulty or c/o voiced. Tolerated well: JQ INFUSION, NORMAL SALINE SOLUTION , On: 21-Aug-2013 Intent 250 CC (Special Coverage Instructions Apply. See MCM: 2049) ([id number])By: Carolynn Srivastava CNP Vancoymcin 500mg/premixedBy: Cijuliana On: 21-Aug-2013 Intent Carolynn MURRAY EKG (20707)By: Marci Pardo LPN On: 18-Jul-2008 Intent Planned Medications INFUSION, NORMAL SALINE SOLUTION , 250 CC Ordered: 21-Aug-2013 Pending Carolynn Srivastava CNP INFUSION, NORMAL SALINE SOLUTION , 250 CC Ordered: 22-Aug-2013 Pending Marci Pardo LPN INJECTION, CEFTRIAXONE SODIUM, PER 250 MG Ordered: 20-Sep-2015 Pending Kelly Mercedes MD INJECTION, KETOROLAC TROMETHAMINE, PER 15 MG Ordered: 03-Dec-2017 Pending Ciesa TERRI, Hamida INJECTION, KETOROLAC TROMETHAMINE, PER 15 MG Ordered: 06-Dec-2017 Pending Sarahesa TERRI, Hamida INJECTION, VANCOMYCIN HCL, 500 MG Ordered: 21-Aug-2013 Pending Ciesa TERRI, Hamida INJECTION, VANCOMYCIN HCL, 500 MG Ordered: 21-Aug-2013 Pending Sarahesa TERRI, Hamida INJECTION, VANCOMYCIN HCL, 500 MG Ordered: 22-Aug-2013 Pending Luke Pardo LPNsie INJECTION, VANCOMYCIN HCL, 500 MG Ordered: 22-Aug-2013 [...] Exam - Yes the patient did have () a mini mental status exam done today. [...] Tinea corporis (110.5) [facility] Payers MedicareUn[facility] Zaida Alanis; darryl guarantor
--- OUTSIDE RECORDS SUMMARY | 2019-02-18 02:33 | XMS RPT_ITS | Continuity of Care Document ---
:1950 Author Organization [facility] Address [facility]7 [facility] 2 [place] [address] Phone Care Team Providers Name Role Phone Lupe Calvo DO Unavailable Emely Whitlock MD Unavailable Dr. Song Ledesma Unavailable Kelly Mercedes MD Unavailable Anderson Pillai Unavailable Unavailable Unavailable Unavailable Problems Name Dates Details Arthritis (M19.90, 716.90) Comments: avoid nsaids Status: Active Atypical chest pain (R07.89, 786.59) Status: Active Bladder stone (N21.0, 594.1) Comments: only given 2 days ketolorac with little relief, will redose torodol and treat as if UTI Status: Active BMI 38.0-38.9,adult (Z68.38, V85.38) Status: Active BMI 39.0-39.9,adult (Z68.39, V85.39) Status: [...] stress at workBP at home:180/87, Do at [employer] Status: Active Influenza vaccination declined (Renamed from Refused influenza vaccine) (Z28.21, V64.06) Status: Active Non morbid obesity, unspecified obesity type (E66.9, 278.00) Comments: pt losoign weight talk about GIOVANI not able to afford test. eating les. talk about contrave. 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) Comments: pt chose to do ca++ D and exercise no meds at this time- repeat dexa 2yr Status: Active Paresthesia (R20.2, 782.0) Comments: vs [...] Status: Active Vaginal Delivery Comments: Status: Active Vitamin D deficiency (E55.9, 268.9) Status: Active Medications Name Dates Details HydroCHLOROthiazide 25 MG Oral Tablet 1 Tablet daily for 30 days Quantity: 30 {Tablet} Refills: 4 Ordered:02-Aug-2018 Bobbi Calvo DO, DO, Kathleen Start : 02-Aug-2018 Active [...] days Quantity: 4 {Tablet} Refills: 1 Ordered:10-May-2015 Sladeepti ROUTER TENDERHayley Champion Start : 01-Sep-2013 End : 10-May-2015 Discontinued NYSTATIN (External Powder) APPLY TO AFFECTED AREA Powder Twice daily for 0 days Refills: 1 Ordered:04-Jul-2008 Edvin ROUTER TENDERMarci Champion Start : 04-Jul-2008 End : 28-Mar-2013 Discontinued [...] of stroke and need to go to [facility] 2 weeks ago when boss fired everyone, [...] [facility] walk inbrushed by tree limb of COSMIC COLOR Status: Inactive as of 03-Apr-2016 Leg wound, [...] Density Study Result: Comments: See Note; NOTES: [facility] Imaging Services [address] [place] [address] Dexa Bone Density Study MR#: [id number] Acct: [id number] Name: KELLIE ALANIS Rep #: [id number] : 1950 F 68 From: Sergio Waite MD PCP: Carolynn Srivastava NP Status: REG CLI Study: Dexa Bone Density Study Date of Exam: 12/14/18 Exam# [id number] Ordering Dr: Lupe Calvo DO STUDY: DUAL [...] Sergio Waite MD at 15:52 EST Tel [phone], Service support , CC: Carolynn Srivastava NP; Lupe Calvo DO Reporting Process Consultant: Signed 14-Dec-2018 SCREENING MAMM (CAD), BILAT Result: Comments: See Note; NOTES: [facility] Imaging Services [address] [place] [address] SCREENING MAMM (CAD), BILAT MR#: [id number] Acct: [id number] Name: KELLIE ALANIS Rep #: [id number] : 1950 F 68 From: Sergio Waite MD PCP: Carolynn Srivastava NP Status: REG CLI Study: SCREENING MAMM (CAD), BILAT Date of Exam: 12/14/18 Exam# [id number] Ordering Dr: Lupe Calvo DO MAMMOGRAPHY - [...] delay biopsy of a clinically suspicious abnormality. [id number] Electronically Signed: Sergio Waite MD at 11:3 9 EST Tel [phone], Service support , CC: Carolynn Srivastava NP; Lupe Calvo DO Reporting Process Consultant: Signed 15-Nov-2018 Emergency Department Summary Result: Comments: See Note; NOTES: [facility] Medical Records Department [address] [place] [address] Emergency Department Summary 11/15/18 2204 MR#: [id number] Acct: [id number] Name: KELLIE ALANIS Rep #: [id number] : 1950 68 From: Anjum Shook MD [...] that this is likely hemorrhagic cystitis. Sh e has no flank pain. She is no fevers or chills. Culture was added. The patient will be treated with Macrobid. She was counseled concerning symptoms and reasons to return. She will be discharged home. Treatment Plan: [] Disposition: Discharge Impression: 1. Acute hemorrhagic cystitis This note was generated with AppSheet dictation software. It may contain incorrect words, spelling, and punctuation that were not noted in review of the chart prior to signing ED Disposition - Plan for ED Patient: Chief Complaint: Complaint Instructions: ED UTI Cystitis Female Prescriptions: Nitrofurantoin Mac rocrystals [Macrobid] 100 mg PO Q12 #14 cap Referrals: Lupe Calvo, [Primary Care Provider] - What to do if you have Problems For any increased pain, shortness of breath, bleeding, nausea or vomiting, chest pain, or any unexpected problems, contact your Primary Care Provider. Call [facility] ([phone]) or report to the closest Emergency Room. Call 911 if necessary. 11/15/18 9848 <Electronically signed by Anjum Shook MD> Date Anjum Shook MD Cosigner Signature (If Indicated): Date CC: Lupe Calvo DO 16-Sep-2018 Echo, Complete w/ Contrast Result: Comments: See Note; NOTES: [facility] Cardiovascular Services [address] [place] [address] Echo Complete W/ Contrast 09/16/18 0846 MR#: [id number] Acct: [id number] Name: KELLIE ALANIS Rep #: [id number] : 1950 67 From: Israel Grajeda MD Attending Dr: Lupe Calvo DO [facility]: Lupe Calvo DO Date: 09/16/18 Location: [facility] Sex: F C Admitted: Reason For Study: [...] Date Dictated: 09/16/18 0846 Date Transcribed: 09/16/182115 Reporting Process Consultant: Signed 16-Sep-2018 Stress Report Result: Comments: See Note; NOTES: [facility] Cardiovascular Services [address] [place] [address] MR#: [id number] Acct: [id number] Name: KELLIE ALANIS Rep #: [id number] : [birth year] 67 From: Israel Grajeda MD [...] 70 %. This note was generated with Agilyxation software. It may contain incorrect words, spelling, and punctuation that were not noted in checking the note before signing. 09/16/18 1550 <Electronically signed by Israel Grajeda MD> Date Israel Grajeda MD CC: Lupe Calvo DO Date Dictated: 09/16/181545 Date Transcribed: 09/16/181545 Reporting Process Consultant: PM Signed 30-Jul-2018 Urgent Care Visit Report Result: Comments: See Note; NOTES: [facility] [address] [place] [address] OFFICE VISIT Date of Service: 07/30/18 MR#: [id number] Acct: [id number] Name: KELLIE ALANIS Rep #: [id number] : 1950 Provider: CIRA Mehta Age/Sex: 67/F Location: [facility] Status: Signed Intake Vital Signs07/30/18 Height 5 [...] normal Judgment: fair Results BMSUA Office Urine [place] r YELLOW Last Edit by Jana Browning [...] no glucosuria. MDP and Trimcinolone order josh kraigen verbally to pharmacist. Both he and patient are aware she may coal picker the triamcinolone cream now, but NOT to coal picker the MDP until tomorrow, once BP [...] without Cont Result: Comments: See Note; NOTES: [facility] Imaging Services [address] [place] [address] Abdomen/Pelvis without Cont MR#: [id number] Acct: [id number] Name: KELLIE ALANIS Rep #: [id number] : 1950 F 67 From: Rui Gould DO PCP: Carolynn Srivastava NP Status: REG CLI Study: Abdomen/Pelvis without Cont Date of Exam: 12/04/17 Exam# [id number] Ordering Dr: Carolynn Srivastava STUDY: CT ABDOME [...] Rui Gould DO at 11:57 EST Tel [phone], Service support , CC: Carolynn Srivastava NP Reporting Process Consultant: Signed 04-Dec-2017 Abdomen/Pelvis without Cont Result: Comments: See Note; NOTES: [facility] Imaging Services [address] [place] [address] Abdomen/Pelvis without Cont MR#: [id number] Acct: [id number] Name: KELLIE ALANIS Rep #: [id number] : 1950 F 67 From: Rui Gould DO PCP: Carolynn Srivastava NP Status: REG CLI Study: Abdomen/Pelvis without Cont Date of Exam: 12/04/17 Exam# [id number] Ordering Dr: Carolynn Srivastava ADDENDUM by Rui Gould DO on 12/04/[address]/Abdomen/Pelvis without Cont 12/04/17 1206 Date cc: Carolynn Srivastava NNP * Signed ADDENDUM by Rui Gould DO on 12/04/17 at 1159 ADDENDUM ADDENDUM: Spurring posteriorly at T12-L1 protruding into the spinal canal. Possible right-sided disc protr usion at L5-S1. Electronically Signed: Rui Gould DO at 11:59 EST Tel [phone], Service support , 12/04/17 1159 Date cc: Carolynn Srivastava NNP * Si gned STUDY: CT ABDOMEN AND [...] Gould DO a t 11:57 EST Tel [phone], Service support , CC: Carolynn Srivastava NP Reporting Process Consultant: Signed Family History Unknown Family Member Name [...] smoker Vital Signs Date Test Result Details :53 Pulse 64 /min Comments: Pattern: Regular Respiration Rate 18 /min Comments: Pattern: Unlabored O2 SAT 97 % Comments: Room air BP Systolic 130 mm[Hg] Comments: Patient Position: Sitting; Cuff Location: Left Arm; Cuff Size: Standard BP Diastolic 82 mm[Hg] Comments: Patient Position: Sitting; Cuff Location: Left Arm; Cuff Size: Standard Weight 219 lb Height 63 in Body Mass Index Calculated 38.79 kg/m2 Body Surface Area Calculated 2.01 m2 :10 Temperature 96.4 f Comments: Method: Temporal [...] kg/m2 Body Surface Area Calculated 2.04 m2 : Temperature 98.1 f Comments: Method: Oral Pulse [...] 0.00 cm Results Date Description Value Details 17-Rva-671016:44 Urinalysis, Complete Comments: Order Date: 11/15/18COLOR OF URINE MAY AFFECT DIPSTICK RESULTS.How was Urine Obtained? [facility] [address] [facility]. [place], [place], [address] MUCUS, URINE 0 SEEN {/hpf} (Normal) BACTERIA [...] Albumin/Creatinine Ratio,Urine Comments: PATIENT WAS FASTINGPERFORMED BY: TargetingMantraNew Mexico Behavioral Health Institute at Las VegasHrdsdt6080 [facility] [id number] Alb/Creat Ratio 6.0 {mg/g_creat} (Normal) Range: 0.0-30.0 Comments: Normal: 0.0 - 30.0 Albuminuria: 31.0 - 300.0 Clinical albuminuria: >300.0 Albumin, Urine 3.3 ug/mL (Normal) Creatinine, Urine 54.6 mg/dL (Normal) :12 Microscopic Examination Comments: PATIENT WAS FASTINGPERFORMED BY: [employer]Mantra [employer] [facility] [id number] Bacteria Few (Normal) Mucus Threads Present (Normal) Epithelial Cells (non renal) 0-10 {/hpf} (Normal) Range: 0 - 10 RBC 0-2 {/hpf} (Normal) Range: 0 - 2 WBC 0-5 {/hpf} (Normal) Range: 0 - 5 :12 Urinalysis, Complete Comments: PATIENT WAS FASTINGPERFORMED BY: [employer] [facility] [id number] Microscopic Examination See below: (Normal) Comments: Microscopic was indicated and was performed. Nitrite, Urine Negative (Normal) Urobilinogen,Semi-Qn 0.2 mg/dL (Normal) Range: 0.2-1.0 Bilirubin Negative (Normal) Occult Blood Negative (Normal) Ketones Negative (Normal) Glucose Negative (Normal) Protein Negative (Normal) WBC Esterase 1+ (Abnormal) Appearance Clear (Normal) Urine-Color Yellow (Normal) pH 7.0 (Normal) Range: 5.0-7.5 Specific Hazard 1.016 (Normal) Range: 1.005-1.030 Vitamin B12 399 pg/mL (Normal) Comments: PATIENT WAS FASTINGPERFORMED BY: TargetingMantraNew Mexico Behavior[facility] Institute at Las VegasCnuafo5670 [facility] [id number] :12 Range: 232-1245 :15 URINE KEILA CULTURE-IDENTIFICATN Comments: PERFORMED BY: [employer] SaveChildren'S Mercy HospitalPntkwq0520 [facility] [id number] Information: SRC: ([id number]) Antimicrobial MIHEAD (Normal) Comments: S = Susceptible; [...] Final report Culture,Comprehensive (Abnormal) :15 Urinalysis, Office (77086) UA - LEUKOCYTE ESTERASE Trace (Normal) UA - NITRITE Negative (Normal) URINE UROBILINGN KATY TIMED Normal mg/dL (Normal) UA - PROTEIN Negative mg/dL (Normal) UA - PH 7 (Normal) UA - BLOOD non-hemolyzed trace (Normal) UA - SPECIFIC GRAVITY 1.015 (Normal) UA - KETONES Negative mg/dL (Normal) UA - BILIRUBIN Negative (Normal) UA - GLUCOSE Negative (Normal) :14 HgA1C , Office (90370) HgA1C , Office 5.8 % (Normal) Range: 4.6 - 7.1 :14 Blood Glucose , Office (66448) Blood Glucose , Office 120 (Normal) :12 TSH (80545) Comments: PATIENT WAS FASTINGPERFORMED BY: [facility] Qgtvyi7097 [facility] [id number] TSH 2.630 {uIU/mL} (Normal) Range: 0.450-4.500 :12 METABOLIC PANEL, COMPREHENSIVE Comments: PATIENT WAS FASTINGPERFORMED BY: TargetingMantraHoboken University Medical CenterGqrrye1290 [facility] [id number] (73992) ALT (SGPT) 23 [iU]/L (Normal) Range: 0-32 [...] mg/dL (Abnormal) Range: 65-99 :12 LIPID PANEL (45939) Comments: PATIENT WAS FASTINGPERFORMED BY: TargetingMantraHoboken University Medical CenterThuyjn5879 [facility] [id number] LDL/HDL Ratio 2.6 {ratio} (Normal) Range: 0.0-3.2 Comments: LDL/HDL Ratio Men Women 1/2 Avg.Risk 1.0 1.5 Av g.Risk 3.6 3.2 2X Avg.Risk 6.2 5.0 3X Avg.Risk 8.0 6.1 LDL Cholesterol Calc 162 mg/dL (Abnormal) Range: 0-99 VLDL Cholesterol Candelario 21 mg/dL (Normal) Range: 5-40 HDL Cholesterol 63 mg/dL (Normal) Triglycerides 103 mg/dL (Normal) Range: 0-149 Cholesterol, Total 246 mg/dL (Abnormal) Range: 100-199 :12 CBC W/AUTO DIFF WBC (46454) Comments: PATIENT WAS FASTINGPERFORMED BY: LabCoHoboken University Medical CenterAvgzue8807 [facility] [id number] Immature Grans (Abs) 0.0 {x10E3/uL} (Normal) Range: [...] (Normal) Range: 3.4-10.8 :53 HgA1C , Office (71295) HgA1C , Office 7.7 % (Abnormal) Range: 4.6 - 7.1 :53 Blood Glucose , Office (31541) Blood Glucose , Office 111 (Normal) :01 HgA1C , Office (73381) HgA1C , Office 5.5 % (Normal) Range: 4.6 - 7.1 :01 Blood Glucose , Office (47150) Blood Glucose , Office 126 (Normal) Comments: pt is fasting 2-Tuw-765593:33 URINE KEILA CULTURE-IDENTIFICATN Comments: PATIENT NOT FASTINGPERFORMED BY: CB [facility] Fhaaoq6385 [facility] [id number] Information: SRC:KENDALL (44117) Antimicrobial MIHEAD (Normal) Comments: S = Susceptible; [...] mL (Abnormal) Urine Final report Culture,Comprehensive (Abnormal) 9-Rlt-547823:54 Urinalysis, Office (53607) UA - LEUKOCYTE ESTERASE Negative (Normal) UA - NITRITE Negative (Normal) URINE UROBILINGN KATY TIMED 2 mg/dL (Normal) UA - PROTEIN Negative mg/dL (Normal) UA - PH 5.0 (Normal) UA - BLOOD Hemolyzed Trace (Normal) UA - SPECIFIC GRAVITY 1.015 (Normal) UA - KETONES Negative mg/dL (Normal) UA - BILIRUBIN Negative (Normal) UA - GLUCOSE Negative (Normal) :01 HgA1C , Office (94247) HgA1C , Office 5.5 % (Normal) Range: 4.6 - 7.1 :01 Blood Glucose , Office (39247) Blood Glucose , Office 105 (Normal) 03-Bvz-606645:16 TSH (88547) Comments: PATIENT WAS FASTINGPERFORMED BY: [facility]6370 [facility] [id number] TSH 1.770 {uIU/mL} (Normal) Range: 0.450-4.500 86-Fun-002503:16 MICROALBUMIN: CREATININE RATIO Comments: PATIENT WAS FASTINGPERFORMED BY: [facility]6370 [facility] [id number] (20624) AND (70807) Microalb/Creat Ratio <10.4 {mg/g_creat} (Normal) Range: 0.0-30.0 Microalbumin, Urine <3.0 ug/mL (Normal) Creatinine, Urine 28.9 mg/dL (Normal) 50-Ris-455371:16 METABOLIC PANEL, COMPREHENSIVE Comments: PATIENT WAS FASTINGPERFORMED BY: [employer] [facility] Hospital6370 [facility] [id number] (48071) ALT (SGPT) 19 [iU]/L (Normal) Range: 0-32 [...] Glucose, Serum 99 mg/dL (Normal) Range: 65-99 83-Tdg-409407:16 LIPID PANEL (80537) Comments: PATIENT WAS FASTINGPERFORMED BY: [employer]70 [facility] [id number] LDL/HDL Ratio 2.4 {ratio_units} (Normal) Range: 0.0-3.2 Comments: LDL/HDL Ratio Men Women 1/2 Avg.Risk 1.0 1.5 Av g.Risk 3.6 3.2 2X Avg.Risk 6.2 5.0 3X Avg.Risk 8.0 6.1 LDL Cholesterol Calc 149 mg/dL (Abnormal) Range: 0-99 VLDL Cholesterol Candelario 20 mg/dL (Normal) Range: 5-40 HDL Cholesterol 63 mg/dL (Normal) Triglycerides 102 mg/dL (Normal) Range: 0-149 Cholesterol, Total 232 mg/dL (Abnormal) Range: 100-199 67-Ntk-014526:16 CBC W/AUTO DIFF WBC (26748) Comments: PATIENT WAS FASTINGPERFORMED BY: [employer]6370 [facility] [id number] Immature Grans (Abs) 0.0 {x10E3/uL} (Normal) Range: [...] (Normal) Range: 3.4-10.8 :20 HgA1C , Office (51406) HgA1C , Office 5.6 % (Normal) Range: 4.6 - 7.1 :20 Blood Glucose , Office (03021) Blood Glucose , Office 127 (Normal) :24 Rapid Flu (26653 x 2) Influenza A Ag negative (Normal) :24 HgA1C , Office (94520) HgA1C , Office 6.1 % (Normal) Range: 4.6 - 7.1 :12 VANT 3.8 ug/ml (Abnormal) Range: 5.0-15.0 Comments: VANCOMYCIN STANDARED DRUG THERAPY TROUGH LEVEL:5.0 - 15.0 mg/LVANCOMYCIN HIGH INTENSITY THERAPY TROUGH LEVEL:15.0 - 20.0 mg/LHigh Intensity therapy recommended for serious lifethreatening infections inc lude:- Agzqlhzmcc-Skmwxkjmvmtd-Wgvvndcfr (Ventilator/Healtcare Associated)- SepsisPLEASE CONTACT PHARMACY SERVICES (#6117) FOR INTERPRETATIONOF RESULTS. :17 CUW WC See Note (Normal) Comments: If further studies are desired, please contact theMicrobiology Laboratory within 48 hours. AMOUNT GROWTH VERY RARE ORGANISM 1: COAG NEGATIVE STAPH GS See Note (Normal) Comments: GRAM STAIN2+ RED CELL STROMANO ORGANISMS SEEN :30 MRSAD tMRSA Negative (Normal) SOURCE: NASAL SWAB (Normal) :03 Metabolic Panel, Basic Comments: PATIENT NOT FASTINGPERFORMED BY: [employer] [facility] Hospital6370 [facility] [id number] Information: [id number] (12147) Calcium, Serum 10.0 mg/dL (Normal) Range: 8.6-10.2 [...] Range: 65-99 :46 Blood Glucose , Office (96124) Comments: 110 Blood Glucose , Office 110 (Normal) :12 HgA1C , Office (84043) Comments: 5.9 HgA1C , Office 5.9 % (Normal) Range: 4.6 - 7.1 :03 TSH (38181) Comments: PATIENT NOT FASTINGPERFORMED BY: [facility]6370 [facility] [id number] TSH 2.030 {uIU/mL} (Normal) Range: 0.450-4.500 :15 HgA1C , Office (15691) HgA1C , Office 6.1 % (Normal) Range: 4.6 - 7.1 :15 Blood Glucose , Office (64579) Blood Glucose , Office 92 (Normal) 29-Zjz-854971:53 LEFT HEART CATH/COR/LV PERCUT Radiology Report See Note (Normal) Comments: Exam Number: [id number] Procedure completed. Please see MEDICAL RECORDS reports in PCI -OP - OP NOTELET - LETTER. Reported By: MELVIN ARCEO M.D. 48-Cnb-304676:27 TSH (03485) Comments: PATIENT NOT FASTINGPERFORMED BY: [facility]Saint [facility] Juuurg4554 [facility] [id number] TSH 1.728 {uIU/mL} (Normal) Range: 0.350-5.500 Comments: Adult TSH concentrations below 5.5 uIU/mL do not rule out the presence of subclinical hypothyroidism. . *EFFECTIVE JULY 23, 2008 the adult reference interval for TSH will be changing to: 0.450 - 4.500 uIU/mL. 31-Egk-259572:27 C-REACTIVE PROTEIN (66080) Comments: PATIENT NOT FASTINGPERFORMED BY: [facility] Pgtabg0797 [facility] [id number] C-Reactive Protein, Quant 6.2 mg/L (Abnormal) Range: 0.0-4.9 32-Xcy-582640:27 SED RATE ERYTHROCYTE (84486) Comments: PATIENT NOT FASTINGPERFORMED BY: [facility]6370 [facility] [id number] Sedimentation Rate-Westergren 10 mm/h (Normal) Range: 0-30 89-Vxz-486061:27 VITAMIN B-12 (CYANOCOBALAMIN) Comments: PATIENT NOT FASTINGPERFORMED BY: [employer] [facility] Hospital6370 [facility] [id number] (86180) Vitamin B12 309 pg/mL (Normal) Range: 211-911 97-Fvl-718667:27 MICROALBUMIN URINE QUANT Comments: PATIENT NOT FASTINGPERFORMED BY: [facility]Saint [facility] Qppcmm6400 [facility] [id number] (81331) Microalbum.,U,Random 3.4 ug/mL (Normal) Range: 0.0-17.0 07-Epl-725244:27 URINALYSIS W/O MICRO (74591) Comments: PATIENT NOT FASTINGClinical Information: ADD DRAW FEE 276384 ADD J 93027 PERFORMED BY: [employer]Mantra Frjkjd8021 [facility] [id number] Appearance Clear (Normal) Bilirubin Negative (Normal) Glucose Negative (Normal) Ketones Negative (Normal) Microscopic Examination MICRON (Normal) Comments: Microscopic follows if indicated. Nitrite, Urine Negative (Normal) Occult Blood Negative (Normal) pH 7.0 (Normal) Range: 5.0-7.5 Protein Negative (Normal) Specific Hazard 1.012 (Normal) Range: 1.005-1.030 Urine-Color Yellow (Normal) Urobilinogen,Semi-Qn 0.2 mg/dL (Normal) Range: 0.0-1.9 WBC Esterase Negative (Normal) Plan of Care Name Dates Details Instructions Osteopenia after menopause : *Calcium Education (KF) Indication: Osteopenia after menopause Postmenopausal (Renamed from Postmenopausal status) : Reviewed Diagnostic Tests Indication: Postmenopausal (Renamed from Postmenopausal status) BMI 38.0-38.9,adult : Eprescribed prescriptions (G8553) Indication: BMI 38.0-38.9,adult Encounter for annual general medical examination with [...] Infection Skin change : Follow up with [facility] for IV vanco tomorrow am Indication: Skin [...] Indication: CTS (carpal tunnel syndrome) Planned Observations CALCIFEDIOL (77655)Indication: Vitamin D deficiency On: 87-Zih-99638:30 Request VITAMIN B-12 (CYANOCOBALAMIN) (24189)Indication: Paresthesia On: 92-Keu-26157:56 Request URINALYSIS, W/ MICRO (06999)Indication: Uncontrolled type 2 diabetes mellitus On: :37 Request MICROALBUMIN: CREATININE RATIO (08095) AND (90423)Indication: Uncontrolled type 2 diabetes mellitus On: :37 Request TSH (18111)Indication: Diabetes type 2, controlled On: : Request URINALYSIS, W/ MICRO (68889)Indication: Diabetes type 2, controlled On: : Request MICROALBUMIN: CREATININE RATIO (17705) AND (44735)Indication: Diabetes type 2, controlled On: : Request METABOLIC PANEL, COMPREHENSIVE (89256)Indication: Diabetes type 2, controlled On: : Request LIPOPROTEIN, BLD, BY NMR (34133)Indication: Hypercholesteremia On: : Request LIPID PANEL (20403)Indication: Hypercholesteremia On: : Request CBC with auto diff (95558)Indication: Diabetes type 2, controlled On: : Request Hemoglobin Glyclated (HGB A1C) (91779)Indication: Diabetes type 2, controlled On: :05 Request Metabolic Panel, Basic (87976)Indication: Leg wound, left On: :03 Request VANCOMYCIN, TROUGH (94575)Indication: Infection On: 00-Fmf-37914:18 Request KEILA CULTURE-OTHER (32157)Indication: Infection On: 58-Fii-079326:01 Request Comments: rt leg MRSA Culture (39298)Indication: Skin change On: 54-Ple-656855:50 Request Comments: nose Metabolic Panel, Basic (09433)Indication: Abnormal blood chemistry On: 56-Zeh-425497:39 Request HEPATIC FUNCTION PANEL (23581)Indication: Hypercholesteremia On: 65-Oya-724944:31 Request Comments: End of Sep LIPID PANEL (95870)Indication: Hypercholesteremia On: 11-Hed-141814:31 Request Comments: To be drawn end september LIPID PANEL (35311)Indication: Hypercholesteremia On: 75-Uav-386638:47 Request Comments: Sep 2009 TSH (45592)Indication: Pain in unspecified joint On: :57 Request TSH (80896)Indication: Hypertension, benign On: :52 Request Planned Procedures [facility] COUNSELING On: 09-Sep-2018 Intent FOR OBESITY, 15 MINUTES (G0447)By: Lupe Calvo DO, DO, Kathleen PNEUM VAC ADLT/IMUMNOSPR, SBC/INTRM On: 09-Sep-2018 Intent (29469)By: Lupe Calvo DO Comments: lot:[id number]:feb 03 2020site/route: l arm subcu amt:0.5mlJasmin, CHIEF SECURITY AND SAFETY OFFICER Lupe Calvo DO DEXA SCAN AXIAL SKELETON (31315)By: On: 09-Sep-2018 Intent Lupe Calvo DO, DO, Kathleen SCREENING DIGITAL TOMOSYNTHESIS OF On: 09-Sep-2018 Intent BREAST (59860)By: Lupe Calvo DO, DO, Kathleen Nuclear Stress Test/Stress On: 24-Aug-2018 Intent SPECT/AdenosineBy: Umesh IRAHETA, Comments: with deg changes in spine and knees unable to be effective treadmill test Lupe Dueñas DO Echo CompleteBy: Umesh IRAHETA, On: 24-Aug-2018 Intent Lupe Dueñas DO ELECTROCARDIOGRAM, COMPLETE (ECG) On: 24-Aug-2018 Intent (35728)By: Lupe Calvo DO Comments: nsr no acute chg poor R wave progression no new chg Lupe Calvo DO ELECTROCARDIOGRAM, COMPLETE (ECG) On: 05-May-2018 Intent (17186)By: Lupe Calvo DO Comments: sinus salima no acute chg Lupe Calvo DO Toradol Injection, 30 mg On: 06-Dec-2017 Intent (J1885)By: Carolynn Srivastava CNP Toradol Injection, 30 mg On: 03-Dec-2017 Intent (J1885)By: Carolynn Srivastava CNP CT - Abdomen & Pelvis Stone On: 03-Dec-2017 Intent ProtocolBy: Carolynn Srivastava CNP ELECTROCARDIOGRAM, COMPLETE (ECG) On: 20-May-2017 Intent (69299)By: Lupe Calvo DO Comments: nsr no acute chg Lupe Calvo DO Aerosol Treatment (13025)By: On: 14-Jan-2017 Intent Barbi Johnson Comments: albulterol 0.83%more a/e no wheeze Aerosol Treatment (42342)By: Atif On: 11-Jan-2017 Intent CLAIM EXAMINERCarolynn CAROTID ULTRASOUND (84457)By: Manan On: 09-Sep-2016 Intent Mumtaz ZHAO Injection, 2 Gram On: 20-Sep-2015 Intent (J0696)By: Mago ZHAO, Kelly Santamaria Comments: IM Eprescribed prescriptions On: 01-Sep-2013 Intent (G8553)By: Lupe Calvo DO, DO, Kathleen Eprescribed prescriptions On: 25-Aug-2013 Intent (G8553)By: Lupe Calvo DO, DO, Kathleen IV Infusion (89865)By: Starr On: 25-Aug-2013 Sandra Landon LPN Vancoymcin 2GM/premixedBy: On: 25-Aug-2013 Intent Barbi Clements LPN Comments: lot [id number] exp 09/29/14 Vancoymcin 1 gram premixedBy: On: 24-Aug-2013 Intent BEN Willis Comments: Lot #:[id number] date:97-6-1117Vjyxkv given:1 gram Route: IV Site given:right hand Given by: #22 gauge placed to right hand without difficulty per shiraz MCMAHON IV Needle placement (24365)By: On: 24-Aug-2013 Intent BEN Willis IV Infusion (75269)By: Lazaro On: 24-Aug-2013 Intent BEN Eprescribed prescriptions On: 24-Aug-2013 Intent (G8553)By: Lupe Calvo DO, DO, Kathleen Eprescribed prescriptions On: 23-Aug-2013 Intent (G8553)By: Janay Murry LPN IV Needle placement (72350)By: On: 23-Aug-2013 Intent Janay Murry LPN Comments: 1 gram vanc -- [id number] exp Megan, LPNIV Therapy rozxjqguf06K, 1 inchSite: L handTolerated: wellno redness or swelling, no s/s infiltrationMegan, ROUTER TENDER HYDRATION IV INFUSION, INIT On: 23-Aug-2013 Intent (65807)By: Janay Murry LPN L INFUSION, NORMAL SALINE SOLUTION , On: 22-Aug-2013 Intent 250 CC (Special Coverage Comments: lot # [id number] exp- 11/11 Instructions Apply. See MCM: 2049) (J7050)By: Marci Pardo LPN Vancoymcin 500mg/premixedBy: Edvin On: 22-Aug-2013 Intent Marci MCMAHON Comments: lot # [id number]- 09/29/14site-R antecuberoute-IVdose- 1GCHenderson ROUTER TENDER IV Infusion (30519)By: Edvin MCMAHON, On: 22-Aug-2013 Intent Marci Comments: initiated in established line, flushed w/o difficulty with 2ML N/S, in R antecube, infusing on gravity pole at 14gtts/min, no s/s redness, swelling induration, tolerated well- CHendersonLPN Vancoymcin 500mg/premixedBy: Edvin On: 22-Aug-2013 Intent Marci MCMAHON Vancoymcin 500mg/premixedBy: Atif On: 21-Aug-2013 Intent Carolynn MURRAY Comments: Lot#[id number], Exp. Date 29Sep2014 IV Needle placement (12756)By: On: 21-Aug-2013 Intent Carolynn Srivastava CNP Comments: IV initiated in: R ACwith 22 gaugenumber of attempts: 1 attempt without difficulty or c/o voiced. Tolerated well: JQ INFUSION, NORMAL SALINE SOLUTION , On: 21-Aug-2013 Intent 250 CC (Special Coverage Instructions Apply. See MCM: 2049) (J7050)By: Carolynn Srivastava CNP Vancoymcin 500mg/premixedBy: Atif On: 21-Aug-2013 Intent Carolynn MURRAY EKG (09499)By: Marci Pardo LPN On: 18-Jul-2008 Intent Planned Medications INFUSION, NORMAL SALINE SOLUTION , 250 CC Ordered: 21-Aug-2013 Pending Carolynn Srivastava CNP INFUSION, NORMAL SALINE SOLUTION , 250 CC Ordered: 22-Aug-2013 Pending Edvin ROUTER TENDER, Marci INJECTION, CEFTRIAXONE SODIUM, PER 250 MG Ordered: 20-Sep-2015 Pending Kelly Mercedes MD INJECTION, KETOROLAC TROMETHAMINE, PER 15 MG Ordered: 03-Dec-2017 Pending Ciesa CLAIM EXAMINER, Hamida INJECTION, KETOROLAC TROMETHAMINE, PER 15 MG Ordered: 06-Dec-2017 Pending Ciesa CLAIM EXAMINER, Hamida INJECTION, VANCOMYCIN HCL, 500 MG Ordered: 21-Aug-2013 Pending Ciesa CLAIM EXAMINER, Hamida INJECTION, VANCOMYCIN HCL, 500 MG Ordered: 21-Aug-2013 Pending Ciesa CLAIM EXAMINER, Hamida INJECTION, VANCOMYCIN HCL, 500 MG Ordered: 22-Aug-2013 Pending Edvin STINSONN, Marci INJECTION, VANCOMYCIN HCL, 500 MG Ordered: 22-Aug-2013 Pending Edvin STINSONN, Marci INJECTION, VANCOMYCIN HCL, 500 MG Ordered: 24-Aug-2013 Pending BEN Willis INJECTION, VANCOMYCIN HCL, 500 MG Ordered: 25-Aug-2013 Pending Barbi Clements LPN Instructions Name Dates Details BMI 38.0-38.9,adult : How to access health information online Indication: BMI 38.0-38.9,adult BMI 38.0-38.9,adult : How to access health information online - Detail Indication: BMI 38.0-38.9,adult BMI 38.0-38.9,adult : Patient Instructions Indication: BMI 38.0-38.9,adult Encounter for annual general medical examination with [...] Instructions Indication: Arthritis Encounters Office Visit On: 15-Dec-2018 6:52 Encounter Reason: Follow up tests - Diagnostic tests include bone scan.Encounter Diagnosis: Current nonsmoker (Renamed from Current non-smoker), BMI 38.0- 38.9,adult, Vitamin D deficiency, Postmenopausal (Renamed from Postmenopausal status), End: 15-Dec-2018 7:40 Osteopenia after menopause [facility] Office Visit On: 09-Sep-2018 7:09 Encounter Reason: Annual Medicare Exam - Yes the patient did have (030) a mini mental status exam done today. [...] Tinea corporis (110.5) [facility] Payers Humana/Medicare adv planMedicareLillkera Alanis; a guarantor
--- OUTSIDE RECORDS SUMMARY | 2019-02-18 02:34 | XMS RPT_ITS ---
:1950 Author Organization OHIP Care Team Providers Name Role Phone Lupe Calvo DO Attending Unavailable Kelly Mercedes MD Referring Unavailable Lupe Calvo DO Consulting Unavailable Lupe Calvo Primary Care Unavailable Anjum Shook Attending Unavailable Lupe Calvo Attending Unavailable Carolynn Srivastava Primary Care Unavailable Maggy Mehta Attending Unavailable Carolynn Srivastava Referring Unavailable Lupe Calvo Attending Unavailable Lupe Calvo Referring Unavailable Lupe Calvo Primary Care Unavailable Israel Grajeda Attending Unavailable Lupe Calvo Referring Unavailable Purpose Purpose PROBLEMS PROBLEMS DATE TYPE CONDITION / CODE ATTENDING STATUS SOURCE 12/14/2018 Unknown Z78.0 - Umesh Active [place] Asymptomatic [facility] menopausal state / Hospital Z78.0(ICD-10) Repository 12/14/2018 Unknown Z12.31 - Encounter Chang Calvo for screening [facility] mammogram for Hospital malignant neoplasm Repository of breast / Z12.31(ICD-10) 11/11/2018 Unknown R07.89 - Other [place], [place] Active [place] chest pain / Community R07.89(ICD-10) Hospital Repository 09/22/2018 Unknown E11.9 - Type 2 Janine, Active [place] diabetes mellitus [facility] without Hospital complications / Repository E11.9(ICD-10) 09/22/2018 Unknown L23.7 - Allergic Janine, Active [place] contact dermatitis [facility] due to plants, Hospital except food / Repository L23.7(ICD-10) 09/22/2018 Unknown I10 - Essential Janine Active [place] (primary) [facility] hypertension / Hospital I10(ICD-10) Repository PROCEDURES PROCEDURES No Procedure Records FoundVITAL SIGNS VITAL SIGNS No Vital Signs Records FoundRESULTS RESULTS SCREENING MAMM (CAD), Observed: 12/14/2018 Status: F Source: [place] BIL 10:06 AM [facility] HOSPITAL REPOSITORY [facility] Imaging Services [address] [place] [address] SCREENING MAMM (CAD), BILAT MR#: [id number] Acct: [id number] Name: KELLIE ALANIS Rep #: [id number] : 1950 F 68 From: Sergio Waite MD PCP: Carolynn Srivastava NP Status: REG CLI Study: SCREENING MAMM (CAD), BILAT Date of Exam: 12/14/18 Exam# [id number] Ordering Dr: Lupe Calvo DO MAMMOGRAPHY - [...] delay biopsy of a clinically suspicious abnormality. [id number] Electronically Signed: Sergio Waite MD at 11:39 EST Tel [phone], Service support , CC: Carolynn Srivastava NP; Lupe Calvo DO Canoe Inspector: Signed DEXA BONE DENSITY Observed: 12/14/2018 Status: F Source: [place] STUDY 10:06 AM [facility] REPOSITORY [facility] Imaging Services [address] [place] [address] Dexa Bone Density Study MR#: [id number] Acct: [id number] Name: KELLIE ALANIS Rep #: [id number] : 1950 F 68 From: Sergio Waite MD PCP: Carolynn Srivastava NP Status: REG CLI Study: Dexa Bone Density Study Date of Exam: 12/14/18 Exam# [id number] Ordering Dr: Lupe Calvo DO STUDY: DUAL [...] Sergio Waite MD at 15:52 EST Tel [phone], Service support , CC: Carolynn Srivastava LIMNOLOGY TEACHER; Lupe Calvo DO Canoe Inspector: Signed EMERGENCY DEPARTMENT Observed: 11/15/2018 Status: F Source: [place] SUMMARY 10:39 PM [facility] REPOSITORY [facility] Medical Records Department [address] [place] [address] Emergency Department Summary 11/15/18 2204 MR#: [id number] Acct: [id number] Name: KELLIE ALANIS Rep #: [id number] : 1950 68 From: Anjum Shook MD [...] hemorrhagic cystitis This note was generated with LBE Security Master dictation software. It may contain incorrect words, [...] your Primary Care Provider. Call [facility] ([phone]) or report to the closest Emergency Room. Call 911 if necessary. 11/15/18 9414 <Electronically signed by Anjum Shook MD> Date Anjum Shook MD Cosigner Signature (If Indicated): Date CC: Lupe Calvo DO URINALYSIS, COMPLETE Collected: 11/15/2018 Status: F Source: [place] 8:44 PM [facility] REPOSITORY Order Comment: Order Date: 11/15/18 COLOR [...] 0 SEEN Performed By: #### L400.0001 #### [facility] [address] [facility] [place], [place], [id number] Observed: 11/15/2018 Status: F Source: [place] CULTURE, URINE 8:44 PM [facility] REPOSITORY Order Date: 11/15/18 Urine Culture ORGANISM 1: Presumptive E. coli [place] Count >100,000 Presumptive E. coli: REACTION Amoxacillin/Clavulanic [...] >=320 R (NF) indicates non-formulary drug at [facility]. Approval by Infectious Disease Specialist required before non-formulary drugs may be ordered and/or dispensed. Performed By: #### M100.0650 #### [facility] [address], [address] ECHO, COMPLETE W/ Observed: 09/16/2018 Status: F Source: [place] CONTRAST 9:17 PM [facility] REPOSITORY [facility] Cardiovascular [place] [address] Echo Complete W/ Contrast 09/16/18 0846 MR#: [id number] Acct: [id number] Name: KELLIE ALANIS Rep #: [id number] : 1950 67 From: Israel Grajeda MD [...] DO Date Dictated: 09/16/18845 Date Transcribed: 09/16/182115 Canoe Inspector: Signed STRESS REPORT Observed: 09/16/2018 Status: F Source: [place] 3:50 PM [facility] REPOSITORY [facility] Cardiovascular Services [address] [place] [address] MR#: [id number] Acct: [id number] Name: KELLIE ALANIS Rep #: [id number] : 1950 67 From: Israel Grajeda MD [...] 70 %. This note was generated with CipherApps software. It may contain incorrect words, spelling, and punctuation that were not noted in checking the note before signing. 09/16/18 6685 <Electronically signed by Israel Grajeda MD> Date Israel Grajeda MD CC: Lupe Calvo DO Date Dictated: 09/16/181545 Date Transcribed: 09/16/181545 Canoe Inspector: PM Signed URGENT CARE VISIT Observed: 07/30/2018 Status: F Source: [place] REPORT 2:39 PM [facility] REPOSITORY [facility] [address] [place] [address] [address] [place] [address] OFFICE VISIT Date of Service: 07/30/18 MR#: [id number] Acct: [id number] Name: KELLIE ALANIS Rep #: [id number] : 1950 Provider: CIRA Mehta Age/Sex: 67/F Location: [facility] Status: Signed Intake Vital Signs07/30/18 Height 5 [...] Nutritional Appearance: obese Orientation: alert, oriented x3 [facility] Head: normal to inspection, normocephalic Ears: [...] he and patient are aware she may pear picker the triamcinolone cream now, but NOT to pear picker the MDP until tomorrow, once BP [...] SEVERITY SOURCE 11/15/2018 Drug No Known Unknown [facility] Allergy/4160 Allergies/F00 Hospital 99517(SNOMED 7021510(RXNOR Repository CT) M) ENCOUNTERS ENCOUNTERS ADMIT/DISCHARGE ACCOUNT ADMITTING ENCOUNTER LOCATION SOURCE NUMBER CLASS 12/15/2018 [id number] Ambulatory Building:[facility] OHIP Practices Repository 12/14/2018 [id number] Ambulatory [place] 1 [facility] ing:OPBD Repository 11/15/2018/ [id number] Emergency [place] Vanessa 8 4 [facility] ing:ED Repository 09/16/2018 [id number] Ambulatory [place] 8 [facility] ing:CVS Repository 09/16/2018 [id number] Ambulatory BMSBuilding:W [place] 3 [facility] Repository 07/30/2018/ [id number] Ambulatory BMSBuilding:B [place] 8 0 [facility] Repository FUNCTIONAL STATUS FUNCTIONAL STATUS No Functional Status Records FoundEQUIPMENT EQUIPMENT No Equipment Records FoundPAYERS PAYERS ENCOUNTER GUARANTOR PAYER SUBSCRIBER SOURCE 12/15/2018 Kellie Santamaria Primary Kellie Santamaria OHIP Practices RaffDOB: Insurance:Humana/Medi RaffDOB: Repository [id number] W care adv planPolicy [id number] [address] Number: [address] [place] [id number] [place] [address]Uao: ([phone]) Date:7037-92-44Riqw 617[address]Pmw: () Name:NPO Gricelda [phone] () [address], [place] [address]OV: 12/15/2018 Secondary Katelin RaffDOB: OHIP Practices Insurance:AultcarePol [id number] Repository icy Number: [address] [id number] [place], [place] Date:2008-01-28 [address]Pjd: [phone] [id number] [id number] (HP) Name:[facility] [address], [place] [address]XX: 12/15/2018 Tertiary Katelin RaffDOB: OHIP Practices Insurance:Medical [id number] Repository [facility] [address] Number: [place], [place] [id number] [address]Bmx: (519) Date: 013 () 1073-98-15Oihs Name:[facility] [address], [place] [address]MW: 12/15/2018 Tertiary Kellie Santamaria OHIP Practices Insurance:MedicarePol RaffDOB: Repository icy Number: [id number] [address] Date:6404-29-91OltfPort [place], [place] Name:[facility] Gricelda [address]Kgz: [id number], [place] ~(3 [address]LK: [phone] (HP) [phone] 12/15/2018 Tertiary Kellie Santamaria OHIP Practices Insurance:Thornton RaffDOB: Repository [facility] [id number] Number: [address] [id number] [place], [place] Date:2017-11-29 [address]Trl: [id number] ~(3 Name:[id number] [place] [address] (HP) [place] [address]SQ: 12/14/2018 KATELIN Jung Primary KELLIE Santamaria [place] [id number] Insurance:HUMANA RAFFDOB: [facility] MEDICARE [facility] [id number], [place] Number: Repository [id number]: [phone] [id number] (HP) Date:8478-70-86F[address] [address]YO: 12/14/2018 Secondary NOT GIVENUNK [place] Insurance:SELF PAY [facility] Number: Effective Repository Date:2018-09-13 11/15/2018 KATELIN Jung Primary KELLIE Mendez [id number] Insurance:MEDICARE RAFFDOB: Community BENNIE PART A [facility] [id number], [place] Number: Repository [address]Ptd: [phone] [id number] () Date:2018-11-15 11/15/2018 Secondary NOT GIVENUNK [place] Insurance:SELF PAY [facility] Number: Effective Repository Date:2018-11-15 09/16/2018 KATELIN Jung Primary KELLIE Mendez [id number] Insurance:MEDICARE RAFFDOB: Community BENNIE PART A [facility] [id number], [place] Number: Repository [id number]: 330 [id number] () Date:2018-08-24 09/16/2018 Secondary KELLIE Santamaria [place] Insurance:MUTUAL OF RAFFDOB: [facility] Number: [id number] Hospital Effective Repository Date:9974-34-90PARTQZLEVERING, [place] [address]SH: 09/16/2018 Tertiary NOT GIVENUNK [place] Insurance:SELF PAY [facility] Number: Effective Repository Date:2018-08-24 09/16/2018 KATELIN Jung Primary KELLIE Mendez [id number] Insurance:MEDICARE RAFFDOB: Community BENNIE PART A [facility] [id number], [place] Number: Repository [address]Yny: 330 [id number] (HP) Date:2018-08-24 09/16/2018 Secondary KELLIE M [place] Insurance:UNITED RAFFDOB: [facility] [id number] Hospital Number: Effective Repository Date:2018-09-16 09/16/2018 Tertiary NOT GIVENUNK [place] Insurance:SELF PAY [facility] Number: Effective Repository Date:2018-09-16 07/30/2018 KATELIN Fabiana Primary KELLIE [address]endez [id number] Insurance:MEDICARE RAFFDOB: [facility] PART A [facility] [id number], [place] Number: Repository [id number]: [phone] [id number] 30 () Date:2018-07-30 07/30/2018 Secondary KELLIE Mendez Insurance:MUTUAL OF RAFFDOB: [facility] Number: [id number] Hospital [id number] Repository Date:2114-03-93DBATII [place], [place] [address]YA: 07/30/2018 Tertiary NOT GIVENUNK [place] Insurance:SELF PAY [facility] Number: Effective Repository Date:2018-07-30 SOCIAL HISTORY SOCIAL HISTORY No Social History Records FoundFAMILY HISTORY FAMILY HISTORY No Family History Records FoundADVANCE DIRECTIVES ADVANCE DIRECTIVES No Advanced Directives Records FoundINFORMATION SOURCE INFORMATION SOURCE DATE CREATED AUTHOR AUTHOR'S ORGANIZATION 12/24/2018 [facility]
== END ==
PROVIDERS: Family Provider Nurse Practitioner; PCP Nurse Practitioner; Visit Provider Internal Medicine
DX: Z12.31 Encounter for screening mammogram for malignant neoplasm of breast (principal); Z78.0 Asymptomatic menopausal state; M85.80 Other specified disorders of bone density and structure, unspecified site
CPT/HCPCS: 77063; 77067; 77080

== ENCOUNTER → 2020-12-31 15:20 | Outpatient (CLI) | payer MEDICARE, SELFPAY ==
--- NOTE | 2020-12-31 15:23 | BI_ITS ---
MAMMOGRAPHY - BILATERAL SCREENING REASON FOR EXAM: Female, 70 years old. Routine annual screening examination. PERTINENT HISTORY: Mother with breast cancer. Remote left excisional breast biopsy. TECHNIQUE: Digital bilateral breast sandra (3D mammographic acquisition) in the CC and MLO projections. 2-D mediolateral oblique (MLO) and craniocaudad (CC) views of both breasts were obtained. CAD: Full Field Digital Mammography with Computer Added Detection was performed. COMPARISON: Comparison is made with prior study dated 12/14/2018. FINDINGS: Breast Composition: The breasts are almost entirely fatty. There are no dominant masses or suspicious calcifications. Stable small benign-appearing bilateral axillary No other significant abnormalities are identified. There has been no significant change since the prior study. BI/SCRN MAMM (CAD)W/SANDRA BILAT IMPRESSION: Stable bilateral screening mammogram. Yearly follow-up mammogram recommended. (A) ASSESSMENT CATEGORY: BIRADS Category 2: Benign. A letter regarding these results will be sent to the patient by the facility within 30 days. Approximately 10% of breast cancers are not detected by mammography. A normal mammogram should not delay biopsy of a clinically suspicious abnormality. [id number] Electronically Signed: Sergio Waite MD at 8:37 EST , Service support ,
--- NOTE | 2020-12-31 15:26 | BD_ITS ---
STUDY: DUAL ENERGY X-RAY ABSORPTIOMETRY / DXA REASON FOR EXAM: Female, 70 years old. 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 COMPARISON: Comparison is made with prior study dated 06/13/2019. FINDINGS: Lumbar Spine (L1-L4): g/cm2 (1.256) / T-score (0.6) / Z-score (2.3) Findings are suggestive of normal bone density with a low fracture risk. Left Femur Total: g/cm2 (0.868) / T-score (-1.1) / Z-score (0.2) Left Femoral Neck: g/cm2 (0.724) / T-score (-2.3) / Z-score (-0.7) Right Femur Total: g/cm2 (0.906) / T-score (-0.8) / Z-score (0.5) Right Femoral Neck: g/cm2 (0.728) / T-score (-2.2) / Z-score (0.6) The T-Scores on the most recent prior examination were: Lumbar Spine (L1-L4): There has been improvement of bone density since the previous examination. Left Femur Total: which represents a worsening of 4.3%. Right Femur Total: which represents a worsening of 6.8%. BD/Dexa Bone Density Study IMPRESSION: The patient is considered osteopenic as outlined below according to World Amadeo Organization (WHO) criteria with a high fracture risk. There has been worsening of bone density since the previous examination. Reference Information: The T-score is the number of standard deviations above or below the standard which is normal for young adults at their peak bone mineral density. The World Health Organization (WHO) interprets the T-scores as follows: Above -1 Normal bone density Between -1 and -2.5 Osteopenia Equal to / or below -2.5 Osteoporosis As a practical clinical guideline, osteopenia may be graded as follows: Mild -1 through -1.5 Moderate -1.6 through -2.0 Severe -2.1 through -2.4 The Z-score is the number of standard deviations above or below age-matched controls. A Z-score of less than -1.5 would be considered abnormal. References: 1. NIH Osteoporosis and Related Bone Diseases www osteo.org 2. International Society for Clinical Densitometry www iscd.org 3. National Osteoporosis Foundation www nof.org Electronically Signed: Sergio Waite MD at 9:26 EST , Service support ,
== END ==
PROVIDERS: PCP Nurse Practitioner; Referring Provider Internal Medicine; Visit Provider Internal Medicine
DX: Z12.31 Encounter for screening mammogram for malignant neoplasm of breast (principal); Z78.0 Asymptomatic menopausal state; M85.80 Other specified disorders of bone density and structure, unspecified site; Z80.3 Family history of malignant neoplasm of breast
CPT/HCPCS: 77063; 77067; 77080

== ENCOUNTER → 2021-10-04 08:30 | Outpatient (CLI) | payer MEDICARE, SELFPAY ==
[2021-10-04 08:37] LABS: Mucous, Urine 0 SEEN /hpf (<or=2+); Red Blood Cells-Urine 0 SEEN /hpf (0-5)
[2021-10-04 09:05] LABS: Absolute Lymphocyte Count 2.92 X10^3/uL (0.83-4.51); Absolute Neutrophil Count 3.8 X10^3/uL (2.0-7.7); Basophil# 0.06 X10^3/uL; Basophil% 0.8 % (0-1); Eosinophil# 0.17 X10^3/uL; Eosinophils% 2.2 % (0-5); Hematocrit 43.1 % (37-47); Hemoglobin 14.3 g/dL (12.0-15.0); Lymphocyte # 2.92 X10^3/ul (0.83-4.51); Lymphocyte % 38.6 % (19-41); Mean Corp Hgb Conc 33.2 g/dL (32-36); Mean Corpuscular Hgb 31.4 pg (27.0-32.0); Mean Corpuscular Volume 94.5 fL (81-99); Mean Platelet Vol. 9.6 fl (6.2-12.0); Monocyte# 0.61 X10^3/uL; Monocyte% 8.1 % (0-10); NRBC Flagged by Analyzer 0 % (0-5); Neutrophil # 3.78 X10^3/uL (2.7-7.7); Platelet Count 307 K/mm3 (150-450); RBC Distribution Width CV 12.9 % (11.6-14.6); RBC Distribution Width SD 44.5 fl (35.1-43.9); Red Blood Count 4.56 M/mm3 (4.2-5.4); White Blood Count 7.6 K/mm3 (4.4-11.0)
[2021-10-04 09:16] LABS: Color, Urine Yellow (Yellow); Glucose, Dipstick Normal (Normal); Ketone-Dipstick Negative (Negative); Leukocyte Esterase-Dipstick 100 /ul (Negative); Nitrite-Dipstick Negative (Negative); Occult Blood-Urine 25 /ul (Negative); Protein-Dipstick 15 mg/dl (Negative); Specific Gravity, Urine 1.025 (1.002-1.030); Urine Bilirubin Dipstick Negative (Negative); Urine Clarity Cloudy (Clear); Urine Urobilinogen Normal (Normal)
[2021-10-04 09:26] LABS: Bacteria 1+ /hpf (None Seen); Calcium Oxalate Crystals Ur 2+ /hpf (<or=2+); Squamous Epithelial Cells - UA 0-5 SEEN /hpf (5-10); White Blood Cells 0-5 SEEN /hpf (0-5)
[2021-10-04 09:45] LABS: ALB/GLOB Ratio 0.9 RATIO (0.9-2.4); AST(SGOT) 30 U/L (15-37); Alanine Aminotransfer ALT/SGPT 27 U/L (13-56); Albumin, Serum 3.6 g/dL (3.2-5.0); Alkaline Phosphatase 103 U/L (45-117); Anion Gap 3 (5-15); BUN 22 mg/dL (7-18); BUN/Creat Ratio 24.6 RATIO (10-20); Calcium,Total 9.8 mg/dL (8.5-10.1); Chloride 103 mmol/L (98-107); Cholesterol 230 mg/dL (200); Creatinine, Serum 0.89 mg/dL (0.55-1.02); EST Glomerular Filtration Rate 67 mL/min (>60); Est Glom Filt Rate - Afr Amer 81 mL/min (>60); Glucose 100 mg/dL (74-106); High Density Lipoprotein 71 mg/dL; Microalbumin,Random Urine 12.5 mg/L (NO RANGE EST.); Microalbumin:Creatinine Ratio 7.1 mg/g CRE (<30 mg/g CRE); Potassium 3.7 mmol/L (3.5-5.1); Protein, Total 7.6 g/dL (6.4-8.2); Sodium Level 137 mmol/L (136-145); Thyroid Stim Hormone (TSH) 1.88 uIU/mL (0.358-3.74); Triglycerides 65 mg/dL; Very Low Density Lipoprotein 13 mg/dL (5-40)
[2021-10-06 09:10] LABS: Vitamin D,25 Hydroxy 28.4 ng/mL
== END ==
PROVIDERS: PCP Internal Medicine; Visit Provider Internal Medicine
DX: E11.9 Type 2 diabetes mellitus without complications (principal); E78.00 Pure hypercholesterolemia, unspecified; E55.9 Vitamin D deficiency, unspecified
CPT/HCPCS: 36415; 80053; 80061; 81001; 82043; 82306; 82570; 84443; 85025

== ENCOUNTER 2022-02-11 18:04 | Outpatient (CLI) | payer MEDICARE, SELFPAY ==
--- NOTE | 2022-02-11 | CYSPIN_PTH ---
PATIENT: PARESH ALANIS LOC: [facility] U#:[id number] AGE/SX: 71/F ROOM: RE02/11/[address]: Dr. Jeanine Rae MD : 1950 BED: DIS: 02/11/2022 SPEC #: [id number] RECD: 02/12/22 07:49 STATUS: MALCOLM REDonis #: [id number] JAVIER: 02/11/22 00:[address]: Jeanine Rae DEPT: CYTOLOGY RECD BY: Jonnathan Kwon ENTERED: 02/12/22 07:49 SP TYPE: CYSPIN FL OTHR DR: Dr. Lupe Calvo, DO Tissues: Urine Procedures: Pap Stain (control) Special Stain Group II Cytospin Fluid HEADER OPERATION: Not noted PRE-OP DIAGNOSIS: Gross hematuria TISSUE SUBMITTED: Urine for cytology DIAGNOSIS CYTOLOGY Urine for cytology (cytospin): Negative for malignant cells. AM:maciej 02/12/2022 CYTOLOGY STUDY Slides are reviewed. CYTOLOGY GROSS Received is 40 ml of cloudy yellow fluid labeled with the patient's name and and designated per the requisition as urine. Submitted for cytology preparation. / maciej 02/11/2022 TC:5 CPT: 38379
[2022-02-11 18:06] LABS: Cytology, Body Fluid / CSF SEE PATHOLOGY REPORT
== END 2022-02-11 23:59 | disposition home or self-care (01) ==
PROVIDERS: PCP Internal Medicine; Visit Provider Urology
DX: R31.0 Gross hematuria (principal)
CPT/HCPCS: 88108; 88313

== ENCOUNTER 2022-02-13 15:52 | Outpatient (CLI) | payer MEDICARE, SELFPAY ==
[2022-02-13 18:10] LABS: Anion Gap 4 (5-15); BUN 20 mg/dL (7-18); BUN/Creat Ratio 25.4 RATIO (10-20); Calcium,Total 9.7 mg/dL (8.5-10.1); Chloride 104 mmol/L (98-107); Creatinine, Serum 0.79 mg/dL (0.55-1.02); EST Glomerular Filtration Rate 77 mL/min (>60); Est Glom Filt Rate - Afr Amer 93 mL/min (>60); Glucose 75 mg/dL (74-106); Potassium 3.3 mmol/L (3.5-5.1); Sodium Level 139 mmol/L (136-145)
== END 2022-02-13 23:59 | disposition home or self-care (01) ==
PROVIDERS: PCP Internal Medicine; Referring Provider Urology; Visit Provider Urology
DX: R31.0 Gross hematuria (principal)
CPT/HCPCS: 36415; 80048

== ENCOUNTER 2022-02-18 15:42 | Outpatient (CLI) | payer MEDICARE, SELFPAY ==
--- NOTE | 2022-02-18 16:00 | CT_ITS ---
EXAM: CT ABDOMEN AND PELVIS WITHOUT AND WITH INTRAVENOUS CONTRAST CLINICAL INDICATION: GROSS HEMATURIA TECHNIQUE: Helically acquired images were obtained of the abdomen and pelvis without and with intravenous contrast. CTDIvol = ( 24.26 ) mGy, DLP = ( 4183.44 ) mGycm This CT exam was performed using one or more of the following dose reduction techniques: automated exposure control, adjustment of the mA and/or kV according to patient size, and/or use of iterative reconstruction technique. This report was created using [employer] report generation technology. CONTRAST: IV 100mL Isovue-300 COMPARISON: 12/04/2017 FINDINGS: LOWER THORAX: Unremarkable. Lung bases are clear. No cardiomegaly. No significant pericardial effusion. ABDOMEN: LIVER: Unremarkable. Homogeneous. No focal mass. GALLBLADDER AND BILE DUCTS: Unremarkable. No calcified gallstones. No gallbladder distention or wall edema. No intra- or extrahepatic biliary ductal dilation. PANCREAS: Unremarkable. No focal cystic or solid mass. SPLEEN: Unremarkable. Normal size without focal cystic or solid mass. ADRENALS: Unremarkable. No nodules. KIDNEYS AND URETERS: Kidneys are unremarkable. Normal renal size and position. No hydronephrosis. STOMACH AND BOWEL: No inflammatory or obstructive changes of bowel. No focal inflammatory change. PELVIS: APPENDIX: Appendix is normal. BLADDER: Unremarkable. REPRODUCTIVE: Unremarkable as visualized. No mass. ABDOMEN and PELVIS: INTRAPERITONEAL SPACE: Unremarkable. No ascites or other fluid collection. No free air. BONES/JOINTS: Degenerative changes of the spine and pelvis. No suspicious lytic or blastic abnormality. SOFT TISSUES: Unremarkable. No discrete abdominal or pelvic wall hernia. VASCULATURE: Unremarkable. Abdominal aorta is non-dilated. LYMPH NODES: Unremarkable. No enlarged lymph nodes. CT/CT Abd/Pelvis W/WO Contrast IMPRESSION: 1. No urolithiasis or obstructive uropathy. 2. Decompressed appearance of the bladder which is otherwise unremarkable Electronically Signed: Nikolai Penaloza MD at 0:51 EDT ,
== END 2022-02-18 23:59 | disposition home or self-care (01) ==
LOC: CT 15:43
PROVIDERS: PCP Internal Medicine; Referring Provider Urology; Visit Provider Urology
DX: R31.0 Gross hematuria (principal)
CPT/HCPCS: 74178; Q9967

== ENCOUNTER → 2024-11-07 | Outpatient (CLI) | payer MEDICARE, SELFPAY ==
--- NOTE | 2024-11-07 13:57 | CDU_ITS ---
Reason For Study: Amaurosis Fugax Rt. Velocities/BP Lt. Velocities/BP Dist CCA 55.4/11.9 cm/sec. Prox CCA 99.7/19.4 cm/sec. Mid CCA 79.8/18.2 cm/sec. Mid CCA 56.7/11.7 cm/sec. Prox CCA 76.5/17.1 cm/sec. Dist CCA 60.0/18.2 cm/sec. Dist ICA 75.4/18.2 cm/sec. Prox ICA 43.8/16.1 cm/sec. Mid ICA 62.0/21.5 cm/sec. Mid ICA 48.7/17.6 cm/sec. Prox ICA 45.0/16.6 cm/sec. Dist ICA 59.0/16.7 cm/sec. Rt. ICA/CCA = 0.9. Lt. ICA/CCA = 1.04. Prox ECA 101.4/12.4 cm/sec. Prox ECA 81.8/6.9 cm/sec. Rt. Vert. 47.9/10.6 cm/sec. Lt. Vert. 31.9/8.4 cm/sec. Right Extracranial There is intimal thickening but no significant atherosclerotic plaque noted in the right common carotid artery. There is intimal thickening but no significant atherosclerotic plaque noted in the right internal carotid artery. There is intimal thickening but no significant atherosclerotic plaque noted in the right external carotid artery. Antegrade flow is noted in the right vertebral artery. Left Extracranial There is intimal thickening but no significant atherosclerotic plaque noted in the left common carotid artery. There is intimal thickening but no significant atherosclerotic plaque noted in the left internal carotid artery. There is intimal thickening but no significant atherosclerotic plaque noted in the left external carotid artery. Antegrade flow is noted in the left vertebral artery. Procedure Carotid Duplex 13302. This is a Carotid Duplex examination using B-mode, color flow and specral Doppler. The exam was diagnostic. Exam performed in department. VL/Carotid Duplex Ultrasound Interpretation Summary No significant atherosclerotic plaque or stenosis noted in the internal carotid arteries bilaterally. Flow within the vertebral arteries is antegrade bilaterally. Ordering Physician: Chadd Morel Referring Physician: Lupe Calvo M.D. Performed By: Fan Sears RVT
== END | disposition home or self-care (01) ==
PROVIDERS: PCP Internal Medicine; Referring Provider Ophthalmology; Visit Provider Ophthalmology
DX: H53.10 Unspecified subjective visual disturbances (principal); G45.3 Amaurosis fugax
CPT/HCPCS: 93880

== ENCOUNTER 2025-05-20 07:34 | Emergency (ER) | payer MEDICARE, SELFPAY ==
[2025-05-20 07:35] VITALS: BP 179/81; PULSE 74; RESP 18; TEMP 36.7; O2SAT 98; BMI 39.6
--- NOTE | 2025-05-20 07:54 | EX.ED.DYSGE1 ---
HPI History of Present Illness Chief Complaint: Nausea/Vomiting/Diarrhea PFSH PFS Medical History (Updated 05/20/25 @ 10:[address] Francisco J Jin DO) Limb weakness Knee pain Diabetes Shoulder pain Arthritis HTN (hypertension) Home Medications ?Medication ?Instructions ?Recorded ?Last Taken ?Type hydrochlorothiazide 25 mg tablet 1 tab PO DAILY 11/15/18 Unknown History ondansetron 4 mg disintegrating 4 mg PO Q8H PRN PRN Nausea #10 tabs 05/20/25 Unknown Rx tablet Allergy/AdvReac Type Severity Reaction Status Date / Time No Known Allergies Allergy Verified 05/20/25 07:35 Surgical History (Updated 05/20/25 @ 08:28 by Asmita Jain) History of cholecystectomy Social History Smoking Status: Light Smoker (<10/day) alcohol intake: never EXAM Physical Exam Const Vital Signs: 05/20/25 07:35 05/20/25 09:34 Temperature 98.0 F Temperature Source Oral Pulse Rate 74 58 L Respiratory Rate 18 16 Blood Pressure 179/81 H 153/74 H Blood Pressure Mean 113 100 Pulse Ox 98 96 Oxygen Delivery Method Room Air Room Air MDM MDM MDM Narrative Medical decision making narrative: HISTORY OF PRESENT ILLNESS: Chief complaint: Nausea/vomiting/diarrhea 72-year-old female history of hypertension, type 2 diabetes presents with nausea vomit diarrhea started last night. Notes she ate old [place] food yesterday. Thinks is food poisoning. She notes innumerable episodes of nonbloody nonbilious vomitus and associated diarrhea. Notes diffuse abdominal pain. Denies recent travel, surgery, antibiotics. No sick contacts. REVIEW OF SYSTEMS: Pertinent positives: Nausea vomiting diarrhea Pertinent negatives: Chest pain, syncope PHYSICAL EXAM: Nursing triage notes reviewed, Vital signs reviewed Constitutional: please see mdm HENT: MMM Eyes: Pupils equal round and reactive to light, Extraocular muscles intact Neck: No stridor, no JVD, full neck ROM Lungs: Clear to auscultation, No wheezing or rales. No increased work of breathing, no conversational dyspnea, no accessory muscle use, no nasal flaring. No respiratory distress noted Heart: Regular rate and rhythm, No murmurs, No rubs and No gallops, 2+ distal pulses (radial, femoral, posterior tibial) in all extremities Abdomen: Soft, there is no elicited tenderness, rigidity, rebound or guarding, no obvious peritoneal signs, no palpable pulsatile abdominal masses, no auscultated abdominal bruit : No CVAT Extremities: No edema Neuro: No new focal neurological deficits, cranial nerves II through XII intact, 5/5 strength in all present extremities. Intact sensation to light touch in all present extremities, 2+ reflexes bilateral patella tendons. Skin: No rash or lesions noted MEDICAL DECISION MAKING: Chief Complaint: please see HPI External records reviewed: Reviewed prior imaging studies: Reviewed CT scan abdomen pelvis from 2018 which showed 4 mm stone in the urinary bladder Factors affecting care: Nephrolithiasis, hypertension Social determinants of health: denies alcohol or other drug use, denies recent travel History obtained from others: Consults: none [facility] Narrative: Patient was initially hypertensive with a blood pressure 179/81, afebrile and nontoxic-appearing. Exam without peritoneal signs. No elicited tenderness. Have a low suspicion for bowel obstruction or perforation. As such I did not obtain advanced imaging at this time. If the patient has a significant elevated white blood cell count we will pursue imaging at that time. I considered the following differential diagnosis: Dehydration, electrolyte disturbance, UTI, invasive diarrheal illness (E. coli, Shigella, Salmonella), viral gastroenteritis I obtained labs to rule out signs of significant dehydration, kidney abnormalities, electrolyte disturbances, signs of significant systemic inflammation. I initially treated the patient 1 L normal saline, 4 mg IV Zofran, 20 mg IV Pepcid and 15 mg IV Toradol symptomatic relief. ALL IMAGES (IF OBTAINED) HAVE BEEN PERSONALLY REVIEWED AND INTERPRETED BY MYSELF. EKG with normal sinus rhythm rate 65, normal axis, normal intervals, no STEMI CBC with borderline leukocytosis of 11.1 (lab reference range 4.4-11), no anemia, hemoconcentration, no thrombocytopenia CMP without evidence of acute kidney injury, significant electrolyte abnormality, anion gap to suggest end organ hypo-perfusion, no evidence of metabolic acidosis with a normal bicarbonate, no evidence of hepatobiliary obstructive pathology. Enteric pathogen panel ordered however patient cannot provide a sample in the ED I suspect her presentation is related to foodborne illness. On reassessment patient abdominal exam remained benign. She was able tolerate p.o. Her blood pressure improved to 153/74. She will be given prescriptions for Zofran and instructions to take Pepcid, Tylenol and ibuprofen for further pain control. Strict return precautions were discussed. Follow-up instructions were given. The patient and/or family, caregivers express understanding. The patient and/or family, caregivers agrees with the plan. Shared decision making: I will have a discussion with the patient and or visitors regarding risk/benefits of further testing or admission. They will be made aware of of the risk/benefits inherent in this decision they will be given the opportunity to voice understanding. Total critical care time today provided was at least 0 minutes. This excludes separately billable procedures. Critical care time (if documented) is secondary to the patient having high probability of clinically significant/life threatening deterioration in the patient's condition which required my urgent intervention. Impression: 1. Acute nausea vomiting and diarrhea 2. History of hypertension Dispo: Discharge home This note was generated with [employer] dictation software. It may contain incorrect words, spelling, and punctuation that were not noted in review of the chart prior to signing. Lab Data Labs: Laboratory Results - last 24 hr 05/20/25 08:05 WBC 11.1 H RBC 4.84 Hgb 15.6 H Hct 45.0 MCV 93.0 MCH 32.2 H MCHC 34.7 RDW Std Deviation 45.0 H RDW Coeff of Cornelio 13.2 Plt Count 265 MPV 10.4 Sodium 140 Potassium 4.0 Chloride 102 Carbon Dioxide 24.4 Anion Gap 13 BUN 19 Creatinine 0.89 Estim Creat Clear Calc 60.24 Est GFR (MDRD) Non-Af 68 BUN/Creatinine Ratio 20.7 H Glucose 144 H Calcium 10.3 Total Bilirubin 0.96 AST 33 H ALT 24 Alkaline Phosphatase 115 H Total Protein 8.0 Albumin 4.5 Globulin 3.5 Albumin/Globulin Ratio 1.3 Discharge Plan Triage Chief Complaint: Nausea/Vomiting/Diarrhea ED Provider: Francisco J Jin Dx/Rx/DC Orders Clinical Impression: Nausea, vomiting, and diarrhea, History of essential hypertension Instructions: ED Food Poisoning (Adult) Prescriptions: New ondansetron 4 mg tablet,disintegrating 4 mg PO Q8H PRN PRN (Reason: Nausea) Qty: 10 0RF No Action hydrochlorothiazide 25 MG tablet 1 tab PO DAILY Patient Comments: pt states hctz is only med she is on but hasn't taken in quite a while Primary Care Provider: Lupe Calvo Referrals: Lupe Calvo DO [Primary Care Provider] - Print Language: Bel[place]ian
--- NOTE | 2025-05-20 08:02 | EKG12_ITS ---
Test Reason : GENERAL Blood Pressure : */* mmHG Vent. Rate : 65 BPM Atrial Rate : 65 BPM P-R Int : 182 ms QRS Dur : 100 ms QT Int : 422 ms P-R-T Axes : 57 10 37 degrees QTcB Int : 438 ms Normal sinus rhythm Normal ECG Confirmed by ADIS ZHAO, MELVIN ([id number]), continuity editor SUSANNA HEARD ([id number]) on 05/22/2025 6:43:51 AM Referred By: Confirmed By: MELVIN ARCEO MD
[2025-05-20] MEDS: Ketorolac 15 MG/ML Vial IV (08:13)
[2025-05-20] MEDS: 0.9% Normal Saline (1000mL) 1,000 ML 999 ML IV (08:13)
[2025-05-20] MEDS: Ondansetron 4 MG/2 ML Vial IV (08:13)
[2025-05-20 08:18] LABS: Hemoglobin 15.6 g/dL (12.0-15.0); Mean Corp Hgb Conc 34.7 g/dL (32-36); Mean Corpuscular Hgb 32.2 pg (27.0-32.0); Mean Platelet Vol. 10.4 fl (6.2-12.0); Platelet Count 265 K/mm3 (150-450); RBC Distribution Width CV 13.2 % (11.6-14.6); Red Blood Count 4.84 M/mm3 (4.2-5.4); White Blood Count 11.1 K/mm3 (4.4-11.0)
[2025-05-20] MEDS: Famotidine 200 MG/20 ML MDV 20 MG in 0.9% Normal Saline (Pres. free 8 ML 300 MG IV (08:20)
--- OUTSIDE RECORDS SUMMARY | 2025-05-20 08:36 | XMS RPT_ITS | CCD ---
Author Organization [facility] Care Team Providers Care Electrician Name Role Phone Lupe Calvo Unavailable Emely Whitlock Unavailable Song Ledesma Unavailable Kelly Mercedes Unavailable Janay Murry Unavailable Unavailable Yesy Ceja Unavailable Unavailable Unavailable Unavailable Lupe Calvo Unavailable Emely Whitlock Unavailable Song Ledesma Unavailable Kelly Mercedes Unavailable Janay Murry Unavailable Unavailable Anderson Pillai Unavailable Unavailable Unavailable Unavailable Gravius, Izzy Unavailable Unavailable Anderson Ceja Unavailable Unavailable Gravius, Izzy Unavailable Unavailable Janay Murry Unavailable Unavailable Asim Cha Unavailable Adelina Stauffer Unavailable Unavailable Lupe Calvo DO Unavailable Emely Whitlock MD Unavailable Dr. Song Ledesma Unavailable Asim Cha Unavailable Kelly Mercedes MD Unavailable Adelina Stauffer LPN Unavailable Unavailable Anderson Ceja LPN Unavailable Unavailable Gravsebastien GIBBS, Izzy Unavailable Unavailable Unavailable Unavailable Jeanine Rae Unavailable Hayley Perez LPN Unavailable Unavailable Zoraida RUBBER COMPOUNDER MIXER, Sabrina Unavailable Unavailable Umesh DO, Lupe Unavailable Mago ZHAO, Kelly Santamaria Unavailable Cha, Asim Unavailable Jaspal [facility], Bibiana Unavailable Unavailable Cha, Asim Unavailable Pilar MEASUREMENT ADVISOR, Kayela Unavailable Unavailable Umesh DO, Lupe Attending Unavailable Kelly Mercedes MD Referring Unavailable Umesh DOLupe Consulting Unavailable BEN Willis LPN Unavailable Unavailable Umesh, Lupe Primary Care Unavailable Horace Layton Attending Unavailable Umesh, Lupe Referring Unavailable Umesh, Lupe Referring Unavailable Umesh, Lupe Primary Care Unavailable Rambo Colon Attending Unavailable Umesh, Lupe Primary Care Unavailable Chadd Morel Referring Unavailable Chadd Morel Attending Unavailable Umesh, Lupe Referring Unavailable Umesh, Lupe Primary Care Unavailable Terri James Attending Unavailable Allergies Allergy Classification Reported Allergen(s) Allergy Type Date of Onset Reaction(s) Facility NEGATED: Highlighted row has been ruled out! (1 source) allergy to substance [facility] Work Phone: NEGATED: Highlighted row has been ruled out! (1 source) drug allergy 5 [facility] Work Phone: NEGATED: Highlighted row has been ruled out! (1 source) allergy to substance [facility] Work Phone: NEGATED: Highlighted row has been ruled out! (1 source) drug allergy 5 [facility] Work Phone: Medications Current Medications Medication Drug Class(es) Dates Sig (Normalized) Sig (Original) azithromycin 250 mg oral tablet (20 sources) Macrolide Antimicrobial Start: 07-30-2023 take 1 tablet by mouth once daily Zithromax Z-Broderick 250 mg oral tablet tad Tablet qd for 0 days Quantity: 1 {Packet} Refills: 0 Ordered: 30-Jul-2023 Lupe Calvo DO, DO, Kathleen Start : 30-Jul-2023 Active Comments: GENERIC OK PLEASE FILL GENERIC Start: 04-21-2021 End: 09-29-2021 Zithromax Z-Broderick 250 MG Oral Tablet 1 (one) Tablet TAD for 0 days Quantity: 1 {Package} Refills: 0 Ordered: 29-Sep-2021 Suzy Heller LPN Start : 21-Apr-2021 End : 29-Sep-2021 Inactive Comments: GENERIC OK PLEASE FILL GENERIC Start: 01-11-2017 End: 05-20-2017 Zithromax Z-Broderick 250 MG Oral Tablet 1 (one) Tablet Tablet TAD for 0 days Quantity: 1 {Package} Refills: 0 Ordered: 20-May-2017 Barbi Clements RN Start : 11-Jan-2017 End : 20-May-2017 Inactive Comment on above: GENERIC OK PLEASE FI LL GENERIC isopropyl alcohol 0.7 ml/ml medicated pad (20 sources) Start: 05-10-20 End: 07-30-20 23 BD Alcohol Swabs topical pads, medicated 1 (one) Pad daily for 90 days Quantity: 90 {Pad} Refills: 3 Ordered: 30-Jul-2023 BEN Willis LPN Start : 10-May-2019 End : 30-Jul-2023 Inactive Comments: E11.9 Comment on above: E11.9 nitrofurantoin, macrocrystals 25 mg / nitrofurantoin, monohydrate 75 mg oral capsule (20 sources) Nitrofuran Antibacterial Start: 11-15-20 18 take 100 mg by mouth every twelve hours Nitrofurantoin Monohyd/M-Cryst Active 100 MG PO EVERY 12 HOURS November 15, 2018 11:05pm Start: 08-30-2018 End: 10-16-2020 take 1 capsule by mouth twice daily Macrobid 100 MG Oral Capsule 1 (one) Capsule Capsule bid for 0 days Quantity: 20 {Capsule} Refills: 0 Ordered: 16-Oct-2020 Adelina Stauffer LPN Start : 30-Aug-2018 End : 16-Oct-2020 Inactive phentermine hydrochloride 37.5 mg oral tablet (20 sources) Sympathomimetic Amine Anorectic Start: 03-15-2023 End: 07-30-2023 take 1 tablet by mouth once daily in the morning Adipex-P 37.5 mg oral tablet 1 (one) Tablet qam for 0 days Quantity: 30 {Tablet} Refills: 0 Ordered: 30-Jul-2023 BEN Willis LPN Start : 15-Mar-2023 End : 30-Jul-2023 Inactive Dispense as Written Comments: DUSTIN Start: 02-22-2023 take 1 tablet by kyree th once daily in the morning Adipex-P 37.5 mg oral tablet 1 (one) Tablet qam for 0 days Quantity: 30 {Tablet} Refills: 0 Ordered: 22-Feb-2023 Umesh DO, Lupe Umesh DO, Lupe Start : 22-Feb-2023 Active Dispense as Written Comments: DUSTIN Start: 02-08-2023 take 1 tablet by kyree th once daily in the morning Adipex-P 37.5 mg oral tablet 1 (one) Tablet qam for 0 days Quantity: 30 {Tablet} Refills: 0 Ordered: 08-Feb-2023 Umesh DO, Lupe Umesh DOKevLupe Start : 08-Feb-2023 Active Dispense as Written Comments: DUSTIN Start: 12-03-2021 take 1 tablet by kyree th once daily in the morning Adipex-P 37.5 MG Oral Tablet 1 (one) Tablet qam for 0 days Quantity: 30 {Tablet} Refills: 0 Ordered: 03-Dec-2021 Umesh DO, Lupe Calvo DOLupe Start : 03-Dec-2021 Active Dispense as Written Comments: DUSTIN Start: 10-29-2021 take 1 tablet by kyree th once daily in the morning Adipex-P 37.5 MG Oral Tablet 1 (one) Tablet qam for 0 days Quantity: 30 {Tablet} Refills: 0 Ordered: 29-Oct-2021 Umesh DO, Lupe Umesh DOKevLupe Start : 29-Oct-2021 Active Dispense as Written Comments: DUSTIN Start: 02-20-2021 End: 04-21-2021 take 1 tablet by mouth once daily in the morning Adipex-P 37.5 MG Oral Tablet 1 (one) Tablet qam for 0 days Quantity: 30 {Tablet} Refills: 0 Ordered: 21-Apr-2021 Adelina Stauffer LPN Start : 20-Feb-2021 End : 21-Apr-2021 Discontinued Start: 01-15-2021 take 1 tablet by kyree th once daily in the morning Adipex-P 37.5 MG Oral Tablet 1 (one) Tablet qam for 0 days Quantity: 30 {Tablet} Refills: 0 Ordered: 15-Jan-2021 Umesh IRAHETA Lupe Calvo DO Lupe Start : 15-Jan-2021 Active Comment on above: DUSTIN True Metrix Air Glucose Meter miscellaneous Each (1 source) Start: 04-21-2019 End: 07-30-2023 True Metrix Air Glucose Meter miscellaneous Each 1 (one) Device test one time daily for 0 days Quantity: 1 {Package} Refills: 0 Ordered: 30-Jul-2023 BEN Willis LPN Start : 21-Apr-2019 End : 30-Jul-2023 Inactive Comments: Mail order. Comment on above: Mail order. Completed/Discontinued Medications Medication Drug Class(es) Dates Sig (Normalized) Sig (Original) [id number] 200 actuat albuterol 0.09 mg/actuat metered dose inhaler (20 sources) beta2-Adrenergic Agonist Start: 01-14-2017 End: 05-20-2017 take 2 puff(s) by inhalation every four to six hours as needed for cough ProAir HFA 108 (90 Base) MCG/ACT Inhalation Aerosol Solution 2 (two) Puff q 4-6hours PRN Cough for 0 days Quantity: 1 {Inhaler} Refills: 0 Ordered: 20-May-2017 Barbi Clements RN Start : 14-Jan-2017 End : 20-May-2017 Inactive Start: 01-14-2017 End: 05-20-2017 take 2 puff(s) by inhalation every four to six hours as needed for cough ProAir HFA 108 (90 Base) MCG/ACT Inhalation Aerosol Solution 2 (two) Puff q 4-6hours PRN Cough for 0 days Quantity: 1 {Inhaler} Refills: 0 Ordered: 20-May-2017 Barbi Clements RN Start : 14-Jan-2017 End : 20-May-2017 Inactive amoxicillin 875 mg / clavulanate 125 mg oral tablet (20 sources) Penicillin-class Antibacterial Start: 01-14-2017 End: 01-24-2017 take 1 tablet by mouth twice daily Augmentin 875-125 MG Oral Tablet 1 (one) Tablet BID for 10 days Quantity: 20 {Tablet} Refills: 0 Ordered: 14-Jan-2017 Barbi Johnson Start : 14-Jan-2017 End : 24-Jan-2017 Inactive cefdinir 300 mg oral capsule (20 sources) Cephalosporin Antibacterial Start: 09-20-2015 End: 10-08-2015 take 1 capsule by mouth twice daily CEFDINIR, 300MG (Oral Capsule) 1 (one) Capsule bid for 0 days Quantity: 20 {Capsule} Refills: 0 Ordered: 08-Oct-2015 Bibiana Shay CMA Start : 20-Sep-2015 End : 08-Oct-2015 Inactive ciprofloxacin 500 mg oral tablet (20 sources) Quinolone Antimicrobial Start: 12-06-2017 End: 12-13-2017 take 1 tablet by mouth twice daily Cipro 500 MG Oral Tablet 1 (one) Tablet bid for 7 days Quantity: 14 {Tablet} Refills: 0 Ordered: 06-Dec-2017 Atif Carolynn Start : 06-Dec-2017 End : 13-Dec-2017 Inactive 24 hr clarithromycin 500 mg extended release oral tablet (20 sources) Macrolide Antimicrobial Start: 01-22-2010 End: 02-01-2010 take 2 tablets by mouth once daily BIAXIN XL PAC, 500MG (Oral Tablet Extended Release 24 Hour) 2 (two) Tablet ER 24HR daily for 10 days Quantity: 20 {Tablet_ER_24HR} Refills: 0 Ordered: 07-Feb-2010 Atif Carolynn Start : 22-Jan-2010 End : 01-Feb-2010 Inactive Start: 01-22-2010 End: 02-01-2010 take 2 tablets by mouth once daily BIAXIN XL PAC, 500MG (Oral Tablet Extended Release 24 Hour) 2 (two) Tablet ER 24HR daily for 10 days Quantity: 20 {Tablet_ER_24HR} Refills: 0 Ordered: 07-Feb-2010 Sarahbrentondarryl MURRAYCarolynn E Start : 22-Jan-2010 End : 01-Feb-2010 Inactive 12 hr dextromethorphan polistirex 6 mg/ml extended release suspension (20 sources) Uncompetitive X-gukodz-K-aspartate Receptor Antagonist, Sigma-1 Agonist Start: 01-11-2017 End: 05-20-2017 Delsym 30 MG/5ML Oral Suspension Extended Release 1 (one) Suspension ER Suspension ER q12hr s for 0 days Quantity: 1 {Bottle} Refills: 0 Ordered: 20-May-2017 Barbi Clements RN Start : 11-Jan-2017 End : 20-May-2017 Inactive doxycycline hyclate 100 mg oral tablet (20 sources) Tetracycline-class Drug Start: 10-08-2015 End: 04-03-2016 take 1 tablet by mouth twice daily DOXYCYCLINE HYCLATE, 100MG (Oral Tablet) 1 (one) Tablet bid for 0 days Quantity: 20 {Tablet} Refills: 0 Ordered: 03-Apr-2016 BEN Willis LPN Start : 08-Oct-2015 End : 03-Apr-2016 Inactive fluconazole 150 mg oral tablet (20 sources) Azole Antifungal Start: 09-01-2013 End: 05-10-2015 DIFLUCAN, 150MG (Oral Tablet) 1 Tablet qod for 4 doses for 0 days Quantity: 4 {Tablet} Refills: 1 Ordered: 10-May-2015 Hayley Perez LPN Start : 01-Sep-2013 End : 10-May-2015 Discontinued FLUoxetine 20 mg oral tablet (20 sources) Serotonin Reuptake Inhibitor Start: 04-03-2016 End: 09-09-2016 take 1 tablet by mouth once daily FLUoxetine HCl 20 MG Oral Tablet 1 (one) Tablet qd for 0 days Quantity: 30 {Tablet} Refills: 3 Ordered: 09-Sep-2016 Janay Murry RN Start : 03-Apr-2016 End : 09-Sep-2016 Inactive hydroCHLOROthiazide 25 mg oral tablet (20 sources) Thiazide Diuretic Start: 05-18-2023 take 1 tablet by mouth once daily hydroCHLOROthiazide 25 mg oral tablet 1 Tablet daily for 90 days Quantity: 90 {Tablet} Refills: 3 Ordered: 18-May-2023 Umesh Lupe IRAHETA DO, Kathleen Start : 18-May-2023 Active Comments: Mail order. Start: 02-08-2023 take 1 tablet by kyree th once daily hydroCHLOROthiazide 25 mg oral tablet 1 Tablet daily for 90 days Quantity: 90 {Tablet} Refills: 3 Ordered: 08-Feb-2023 Umesh DO, Toma Dueñas DOhleen Start : 08-Feb-2023 Active Comments: Mail order. Start: 01-27-2023 take 1 tablet by kyree th once daily hydroCHLOROthiazide 25 mg oral tablet 1 Tablet daily for 90 days Quantity: 90 {Tablet} Refills: 0 Ordered: 27-Jan-2023 Kristie Quarles CNP Start : 27-Jan-2023 Active Comments: Mail order. Start: 10-05-2022 take 1 tablet by kyree th once daily hydroCHLOROthiazide 25 MG Oral Tablet 1 Tablet daily for 90 days Quantity: 90 {Tablet} Refills: 0 Ordered: 05-Oct-2022 Umesh DO, Lupe Calvo DOTomaLupe Start : 05-Oct-2022 Active Comments: Mail order. Start: 09-26-2021 take 1 tablet by kyree th once daily hydroCHLOROthiazide 25 MG Oral Tablet 1 Tablet daily for 90 days Quantity: 90 {Tablet} Refills: 3 Ordered: 26-Sep-2021 Umesh DO, Lupe Umesh DO Lupe Start : 26-Sep-2021 Active Comments: Mail order. Start: 10-21-2020 take 1 tablet by kyree th once daily hydroCHLOROthiazide 25 MG Oral Tablet 1 Tablet daily for 90 days Quantity: 90 {Tablet} Refills: 3 Ordered: 21-Oct-2020 Umesh DO, Lupe Umesh DO Lupe Start : 21-Oct-2020 Active Comments: Mail order. Start: 10-16-2020 take 1 tablet by kyree th once daily hydroCHLOROthiazide 25 MG Oral Tablet 1 Tablet daily for 90 days Quantity: 90 {Tablet} Refills: 3 Ordered: 16-Oct-2020 Umesh DO, Lupe Umesh DOTomaLupe Start : 16-Oct-2020 Active Comments: Mail order. Start: 08-23-2020 take 1 tablet by kyree once daily hydroCHLOROthiazide 25 MG Oral Tablet 1 Tablet daily for 30 days Quantity: 30 {Tablet} Refills: 0 Ordered: 23-Aug-2020 Umesh DO, Lupe Umesh DOTomaLupe Start : 23-Aug-2020 Active Start: 08-02-2018 take 1 tablet by kyree th once daily hydroCHLOROthiazide 25 MG Oral Tablet 1 Tablet daily for 90 days Quantity: 90 {Tablet} Refills: 3 Ordered: 21-Apr-2019 Umesh DO, Lupe Umesh DO Lupe Start : 21-Apr-2019 Active Comments: Mail order. Comment on above: Mail order. hydroCHLOROthiazide 25 mg / lisinopril 20 mg oral tablet (20 sources) Thiazide Diuretic, Angiotensin Converting Enzyme Inhibitor Start: 016 End: 017 take 1 tablet by mouth twice daily Lisinopril-Hydroch lorothiazide 20-25 MG Oral Tablet 1 (one) Tablet Tablet bid for 0 days Quantity: 60 {Tablet} Refills: 0 Ordered: 20-May-2017 Barbi Clements RN Start : 03-Apr-2016 End : 20-May-2017 Inactive ketorolac tromethamine 10 mg oral tablet (20 sources) Nonsteroidal Anti-inflammatory Drug, Cyclooxygenase Inhibitor Start: End: take 1 tablet by mouth every six hours as needed for pain, then take 1 tablet by mouth once daily as needed for pain Ketorolac Tromethamine 10 MG Oral Tablet 1 (one) Tablet Tablet q6hr x 2 days then 1 daily prn for pain for 0 days Quantity: 30 {Tablet} Refills: 0 Ordered: 06-Dec-2017 Janay Murry RN Start : 03-Dec-2017 End : 06-Dec-2017 Inactive 24 hr metFORMIN hydrochloride 500 mg extended release oral tablet (20 sources) Biguanide Start: End: take 1 tablet by mouth once daily metFORMIN 500 mg oral Tablet, Extended Release 24 hr 1 (one) Tablet daily for 90 days Quantity: 90 {Tablet} Refills: 3 Ordered: 08-Feb-2023 Bibiana Shay CMA Start : 29-Oct-2021 End : 08-Feb-2023 Inactive Comments: Mail order. Start: 11-23-2019 take 1 tablet by kyree th twice daily metFORMIN HCl ER 500 MG Oral Tablet Extended Release 24 Hour 1 (one) Tablet bid for 90 days Quantity: 90 {Tablet} Refills: 3 Ordered: 23-Nov-2019 Lupe Calvo DO, DO, Kathleen Start : 23-Nov-2019 Active Comments: Mail order. Start: 04-21-2019 take 1 tablet by kyree th twice daily metFORMIN HCl ER 500 MG Oral Tablet Extended Release 24 Hour 1 (one) Tablet bid for 90 days Quantity: 90 {Tablet} Refills: 3 Ordered: 21-Apr-2019 Lupe Calvo DO, DO, Kathleen Start : 21-Apr-2019 Active Comments: Mail order. Start: 02-03-2019 take 1 tablet by kyree th twice daily MetFORMIN HCl ER 500 MG Oral Tablet Extended Release 24 Hour 1 (one) Tablet bid for 30 days Quantity: 60 {Tablet} Refills: 3 Ordered: 03-Feb-2019 Lupe Calvo DO, DO, Kathleen Start : 03-Feb-2019 Active Start: 11-15-2018 End: 03-19-2021 take 1 tablet by mouth once daily metFORMIN HCl ER 500 MG Oral Tablet Extended Release 24 Hour 1 (one) Tablet daily for 90 days Quantity: 90 {Tablet} Refills: 3 Ordered: 29-Oct-2021 Sabrina Conway LPN Start : 29-Oct-2021 Active Comments: Mail order. Start: 10-24-2018 take 1 tablet by kyree th twice daily MetFORMIN HCl ER 500 MG Oral Tablet Extended Release 24 Hour 1 (one) Tablet bid for 30 days Quantity: 60 {Tablet} Refills: 3 Ordered: 24-Oct-2018 Lupe Calvo DO, DO, Kathleen Start : 24-Oct-2018 Active Start: 05-05-2018 take 1 tablet by kyree th once daily, then take 2 tablets by mouth once daily MetFORMIN HCl ER 500 MG Oral Tablet Extended Release 24 Hour 1 (one) Tablet Tablet qd for one week then 2tabs daily for 0 days Quantity: 60 {Tablet} Refills: 3 Ordered: 05-May-2018 Barbi Clements LPN Start : 05-May-2018 Active Comment on above: Mail order. nitrofurantoin, macrocrystals 25 mg / nitrofurantoin, monohydrate 75 mg oral capsule (2 sources) Start: 8 take 1 capsule by mouth twice daily Macrobid 100 MG Oral Capsule 1 (one) Capsule Capsule bid for 0 days Quantity: 20 {Capsule} Refills: 0 Ordered: 30-Aug-2018 Janay Murry LPN Start : 30-Aug-2018 Active nystatin (20 sources) Polyene Antifungal Start: 8 End: 3 NYSTATIN (External Powder) APPLY TO AFFECTED AREA Powder Twice daily for 0 days Refills: 1 Ordered: 04-Jul-2008 Marci Pardo LPN Start : 04-Jul-2008 End : 28-Mar-2013 Discontinued Comments: This order discontinued per [facility]. Start: 07-04-2008 End: 03-28-2013 NYSTATIN (External Powder) A PPLY TO AFFECTED AREA Powder Twice daily for 0 days Refills: 1 Ordered: 04-Jul-2008 Marci Pardo LPN Start : 04-Jul-2008 End : 28-Mar-2013 Discontinued Comments: This order discontinued per [facility]. Comment on above: This order discontin ued per [facility]. 0.25 mg, 0.5 mg dose 1.5 ml semaglutide 1.34 mg/ml pen injector (17 sources) Start: 08-14-2021 End: 09-29-2021 Ozempic (0.25 or 0.5 MG/DOSE) 2 MG/1.5ML Subcutaneous Solution Pen-injector 0.25 Solution Pen-injector 0.5ml once weekly for 0 days Quantity: 1 {Each} Refills: 1 Ordered: 29-Sep-2021 Suzy Heller LPN Start : 14-Aug-2021 End : 29-Sep-2021 Inactive Comments: qty is 1 box of pens -- 0.5mg dose for 4 wks then 1mg weekly Start: 06-03-2021 Ozempic (0.25 or 0.5 MG/DOSE) 2 MG/1.5ML Subcutaneous Solution Pen-injector 0.25 Solution Pen-injector qweek for 4weeks then 0.5 sqqweek for 0 days Quantity: 1 {Box} Refills: 1 Ordered: 03-Jun-2021 Lupe Calvo DO, DO, Kathleen Start : 03-Jun-2021 Active Start: 03-19-2021 Ozempic (0.25 or 0.5 MG/DOSE) 2 MG/1.5ML Subcutaneous Solution Pen-injector 0.25 Solution Pen-injector qweek for 4weeks then 0.5 sqqweek for 0 days Quantity: 1 {Box} Refills: 1 Ordered: 19-Mar-2021 Adelina Stauffer LPN Start : 19-Mar-2021 Active Comment on above: qty is 1 box of pens -- 0.5mg dose for 4 wks then 1mg weekly simvastatin 20 mg oral tablet (20 sources) HMG-CoA Reductase Inhibitor Start: 008 End: 013 take 1 tablet by mouth once in the evening SIMVASTATIN, 20MG (Oral Tablet) 1 (one) Tablet q pm for 0 days Quantity: 30 {Tablet} Refills: 6 Ordered: 28-Mar-2013 Marci Pardo LPN Start : 25-Jul-2008 End : 28-Mar-2013 Inactive sulfamethoxazole 800 mg / trimethoprim 160 mg oral tablet (20 sources) Dihydrofolate Reductase Inhibitor Antibacterial, Sulfonamide Antimicrobial Start: 013 End: 015 take 1 tablet by mouth twice daily BACTRIM DS, 800-160MG (Oral Tablet) 1 Tablet bid for 0 days Quantity: 20 {Tablet} Refills: 0 Ordered: 10-May-2015 Chris MCMAHONHayley Start : 28-Aug-2013 End : 10-May-2015 Discontinued True Metrix Air Glucose Meter Device (20 sources) Start: 019 True Metrix Air Glucose Meter Device 1 (one) Device test one time daily for 0 days Quantity: 1 {Package} Refills: 0 Ordered: 21-Apr-2019 Izzy Valencia CMA Start : 21-Apr-2019 Active Comments: Mail order. Start: 04-21-2019 True Metrix r Glucose Meter Device 1 (one) Device test one time daily for 0 days Quantity: 1 {Package} Refills: 0 Ordered: 21-Apr-2019 Izzy Valencia Start : 21-Apr-2019 Active Comments: Mail order. Comment on above: Mail order. Problems Active Problems Problem Classification Problem Date Documented Date Episodic/Chronic Abdominal pain (20 sources) Lower abdominal pain; Translations: [Lower abdominal pain] Resolved: 8 12-30-2017 Episodic Adjustment disorders (20 sources) Adjustment disorder with depressed mood; Translations: [Grief finding] Resolved: 8 05-05-2018 Chronic Administrative/social admission (20 sources) Counseling procedure with explicit context; Translations: [Patient encounter status] 09-09-2018 Episodic Comment on above: recommended eating m ore than once day- suggestions made with working 10-12- shift w/no lunch break.-drink more water - use pink salt Calculus of urinary tract (20 sources) Urinary bladder stone; Translations: [Bladder stone] Resolved: 3 09-09-2018 Episodic Comment on above: only given 2 days ke tolorac with little relief, will redose torodol and treat as if UTI Chronic ulcer of skin (20 sources) Pressure ulcer; Translations: [PRESSURE SORE] Resolved: 9 09-20-2015 Chronic Comment on above: ???B/C OF LOCATION U NDER PANUS AND IN INCISION LINECOMPLICATED WITH SECONDARY YEAST INFECITON Diabetes mellitus with complications (20 sources) Type II diabetes mellitus uncontrolled; Translations: [Uncontrolled type 2 diabetes mellitus] Resolved: 3 12-15-2018 Chronic Diabetes mellitus without complication (20 sources) Type 2 diabetes mellitus; Translations: [Diabetes mellitus] 09-09-2018 Chronic Comment on above: right now off meds d id loose wsome weigh tnot get more off talkabout vitctoza would have to supply by samples Diabetes mellitus without complication (20 sources) Diabetes mellitus without complication Disorders of lipid metabolism (20 sources) Hypercholesterolemia; Translations: [Hypercholesteremia] 09-09-2018 Chronic Essential hypertension (20 sources) Hypertensive disorder; Translations: [Benign hypertension] Resolved: 5 12-24-2015 Chronic Comment on above: improving slightly w ith hctz lot of stress at wor kBP at home:180/87, Do at [employer] Genitourinary symptoms and ill-defined conditions (20 sources) Dysuria; Translations: [Blood in urine] Resolved: 3 09-09-2018 Episodic Headache, including migraine (20 sources) Headache; Translations: [Headache] Resolved: 7 05-20-2017 Episodic Comment on above: CT scan of head, can t afford to do it because no insurance'Haedache get worse, vioson complaion , numbness/weaknesss arm legs, confused: signs of stroke [facility] fired everyone, frontal area, 2/10 in severity, not worst headache of lifeNo focal weakness, Hnads tingle becaude of CTSGets dizzy but no visual complaintsHad migraines years ago Immunizations and screening for infectious disease (20 sources) Patient encounter status; Translations: [Encounter for hepatitis C virus screening test for high risk patient] 04-21-2021 Episodic Influenza (16 sources) Influenza Lymphadenitis (20 sources) Enlargement of lymph nodes; Translations: [SYMPTOM, ENLARGEMENT, LYMPH NODES] Resolved: 6 05-20-2017 Episodic Mood disorders (20 sources) Depression; Translations: [Depressive disorder] 09-09-2018 Chronic Comment on above: mother in law has be en living with them for last 19 years, and she has basically taken over the house and her , stress at work, patient just feels hopeless Mycoses (20 sources) Tinea corporis; Translations: [Candidiasis of vulva and vagina] Resolved: 6 04-03-2016 Episodic Nonspecific chest pain (20 sources) Atypical chest pain; Translations: [Atypical chest pain] Resolved: 0 09-09-2018 Episodic Normal and/or delivery (20 sources) History of past delivery; Translations: [Vaginal delivery] 09-09-2018 Episodic Comment on above: Nutritional deficiencies (20 sources) Vitamin D deficiency; Translations: [Vitamin D deficiency] 12-15-2018 Chronic Comment on above: instructed to take 5 K daily Osteoarthritis (20 sources) Arthritis; Translations: [Arthritis] Resolved: 5 09-09-2018 Chronic Comment on above: avoid nsaids Osteoporosis (4 sources) Age-related osteoporosis without current pathological fracture; Translations: [Osteopenia after menopause] 12-15-2018 Chronic Comment on above: pt chose to do ca++ D and exercise no meds at this time- repeat dexa 2yr Other bone disease and musculoskeletal deformities (20 sources) Postmenopausal osteopenia; Translations: [Osteopenia after menopause] 03-05-2021 Episodic Comment on above: pt chose to do ca++ D and exercise no meds at this time- repeat dexa 2yr Other circulatory disease (20 sources) Carotid bruit present; Translations: [Carotid bruit] 09-09-2018 Episodic Other circulatory disease (20 sources) Carotid bruit; Translations: [Carotid bruit] 02-10-2021 Episodic Other connective tissue disease (20 sources) Disorder of lower extremity; Translations: [Leg wound, left] Resolved: 6 05-20-2017 Episodic Comment on above: looks better had melanie ephin shot. not get oral atb because expensive. will do doxycycline if need right now healign on own. no darinage not as red. Other ear and sense organ disorders (20 sources) Tinnitus; Translations: [Tinnitus] Resolved: 3 10-16-2020 Episodic Other infections (20 sources) Unspecified infectious and parasitic diseases; Translations: [Infection] Resolved: 6 05-20-2017 Episodic Comment on above: Has been on bactrim using neosporin, not improving [facility] in[facility] by tree limb of sarah morales Other lower respiratory disease (20 sources) Cough; Translations: [Cough] Resolved: 7 05-20-2017 Episodic Other nervous system disorders (20 sources) Carpal tunnel syndrome; Translations: [CTS (carpal tunnel syndrome)] 09-09-2018 Chronic Comment on above: Pt does not want to have surgical intervention at this timeDiscussed nerve conduction, pt does not want intervention if need to be off work Other nervous system disorders (20 sources) Paresthesia; Translations: [Paresthesia] Resolved: 3 09-09-2018 Episodic Comment on above: vs fibromyalgiaand c arpel tunnelWill send to PT for fibromyalgia Other non-traumatic joint disorders (20 sources) Joint pain; Translations: [Pain in unspecified joint] Resolved: 9 10-14-2015 Episodic Comment on above: multiple sites of te ndernessJoint changes on hands Other nutritional; endocrine; and metabolic disorders (20 sources) Obesity; Translations: [Non morbid obesity, unspecified obesity type] 09-09-2018 Chronic Comment on above: pt losoign weight ta lk about GIOVANI not able to afford test. eating les. talk about contrave. Other nutritional; endocrine; and metabolic disorders (20 sources) Obesity, unspecified Chronic Other nutritional; endocrine; and metabolic disorders (20 sources) Body mass index 30+ - obesity; Translations: [BMI 34.0-34.9,adult] Resolved: 3 12-03-2017 Chronic Other nutritional; endocrine; and metabolic disorders (2 sources) Morbid obesity; Translations: [Morbid obesity] 07-30-2023 Chronic Other nutritional; endocrine; and metabolic disorders (20 sources) Weight gain; Translations: [Weight gain] 03-05-2021 Episodic Other skin disorders (20 sources) Skin lesion; Translations: [Skin lesion] Resolved: 9 09-20-2015 Episodic Comment on above: Chronic wound abdome nSeen at wound center, Derm eval for Nystatin powder Other skin disorders (20 sources) Skin finding; Translations: [Skin change] Resolved: 5 09-20-2015 Episodic Other upper respiratory disease (20 sources) Nasal sinus problem; Translations: [Sinus pressure] Resolved: 3 04-21-2021 Episodic Other upper respiratory disease (2 sources) Nasal congestion; Translations: [Nasal congestion] 07-30-2023 Episodic Other upper respiratory infections (20 sources) Chronic sinusitis, unspecified; Translations: [Bacterial sinusitis] Onset: 5 09-09-2018 Chronic Other upper respiratory infections (20 sources) Upper respiratory infection; Translations: [URI (upper respiratory infection)] 09-09-2018 Episodic Pneumonia (except that caused by tuberculosis or sexually transmitted disease) (2 sources) Severe acute respiratory syndrome; Translations: [SARS (severe acute respiratory syndrome)] 07-30-2023 Episodic Residual codes; unclassified (20 sources) Postmenopausal state; Translations: [Postmenopausal (Renamed from Postmenopausal status)] 09-09-2018 Episodic Residual codes; unclassified (20 sources) Current non-smoker ; Translations: [Current nonsmoker (Renamed from Current non-smoker)] 03-19-2021 Episodic Residual codes; unclassified (20 sources) Influenza vaccination declined; Translations: [Influenza vaccination declined (Renamed from Refused influenza vaccine)] 03-05-2021 Episodic Residual codes; unclassified (20 sources) Non-smoker; Translations: [Current nonsmoker (Renamed from Current non-smoker)] 03-15-2023 Episodic Spondylosis; intervertebral disc disorders; other back problems (20 sources) Intervertebral disc prolapse; Translations: [Protrusion of intervertebral disc of lumbosacral region] 09-09-2018 Chronic Comment on above: pt declined physical therapy Spondylosis; intervertebral disc disorders; other back problems (20 sources) Low back pain; Translations: [Backache] Resolved: 8 12-30-2017 Episodic Comment on above: spurring low back Substance-related disorders (20 sources) Smoker; Translations: [Current smoker] Resolved: 8 09-09-2018 Chronic Unclassified (20 sources) Body mass index 40+ - severely obese; Translations: [BMI 40.0-44.9, adult] Resolved: 8 09-09-2018 Chronic Unclassified (20 sources) Blood chemistry abnormal; Translations: [Breast neoplasm screening status] Resolved: 5 09-20-2015 Episodic Comment on above: Slightly elevated bl ood glucose fasting of 101, will repeat Discussed diet, exercise, etc appt with GI coming up 2020 Unclassified (20 sources) Influenza-like symptoms; Translations: [Immunization not carried out because of patient refusal] Resolved: 7 05-20-2017 Episodic Unclassified (20 sources) Unclassified (20 sources) Current non-smoker ; Translations: [Current nonsmoker (Renamed from Current non-smoker)] 09-09-2018 Unclassified (20 sources) BMI 39.0-39.9,adult Unclassified (20 sources) Nutritional counseling Unclassified (20 sources) Hypercholesteremia Unclassified (20 sources) Influenza vaccination declined (Renamed from Refused influenza vaccine) Unclassified (20 sources) Current smoker Unclassified (20 sources) BMI 40.0-44.9, adult Unclassified (20 sources) Postmenopausal (Renamed from Postmenopausal status) Unclassified (20 sources) Encounter for screening mammogram for breast cancer (Renamed from Encounter for screening mammogram for malignant neoplasm of breast) Unclassified (20 sources) Colon cancer screening (Renamed from Encounter for screening for malignant neoplasm of colon); Translations: [Screening status] 09-09-2018 Unclassified (20 sources) Grieving Unclassified (17 sources) Protrusion of intervertebral disc of lumbosacral region Unclassified (20 sources) BMI 38.0-38.9,adult Unclassified (20 sources) BMI 34.0-34.9,adult Past or Other Problems Problem Classification Problem Date Documented Date Episodic/Chronic Allergic reactions (3 sources) Contact dermatitis due to poison donna; Translations: [Allergic contact dermatitis due to plants, except food] Onset: 4 Episodic Blindness and vision defects (1 source) Unspecified subjective visual disturbances; Translations: [Unspecified subjective visual disturbances] Onset: 5 Episodic Menopausal disorders (16 sources) Postmenopausal osteopenia; Translations: [Osteopenia after menopause] 12-15-2018 Comment on above: pt chose to do ca++ D and exercise no meds at this time- repeat dexa 2yr Other injuries and conditions due to external causes (8 sources) Injury of lower extremity; Translations: [Leg wound, left] Resolved: 6 05-20-2017 Episodic Comment on above: looks better had melanie ephin shot. not get oral atb because expensive. will do doxycycline if need right now healign on own. no darinage not as red. Residual codes; unclassified (20 sources) Past history of procedure; Translations: [Colonoscopy] Resolved: 5 09-20-2015 Episodic Comment on above: ? date Unclassified (20 sources) Bladder stone Unclassified (20 sources) Unspecified Diagnosis Resolved: 6 04-03-2016 Unclassified (20 sources) Skin finding; Translations: [Skin change] Resolved: 5 09-20-2015 Unclassified (20 sources) Sinusitis, bacterial Unclassified (20 sources) Flu-like symptoms Unclassified (20 sources) Leg wound, left Unclassified (20 sources) Encounter for annual general medical examination with abnormal findings in adult; Translations: [Patient encounter status] 09-09-2018 Unclassified (20 sources) Skin change (782.9) Unclassified (20 sources) Infection (136.9) Unclassified (20 sources) Vaginal yeast infection (112.1) Unclassified (20 sources) Pregnancies (); Translations: [Pregnancies ()] 09-09-2018 Comment on above: 2 Unclassified (20 sources) SYMPTOM, ENLARGEMENT, LYMPH NODES (785.6) Unclassified (20 sources) Hypercholesteremia (272.0) Unclassified (20 sources) Abnormal blood chemistry (790.6) Unclassified (20 sources) ARTHRALGIAS 719.40 Unclassified (20 sources) Hypertension,benign(401. 1) Unclassified (20 sources) PARASTHESIA (782.0) Unclassified (20 sources) PRESSURE SORE (707.0) Unclassified (20 sources) Patient encounter status; Translations: [Colon cancer screening (Renamed from Encounter for screening for malignant neoplasm of colon)] 09-09-2018 Comment on above: appt with GI coming up 2020 Unclassified (20 sources) Influenza vaccination declined; Translations: [Influenza vaccination declined (Renamed from Refused influenza vaccine)] 09-09-2018 Unclassified (20 sources) Osteopenia after menopause Unclassified (18 sources) Annual Medicare Phyiscal WITHOUT abnormal findings (Renamed from Encounter for general adult medical examination without abnormal findings) Unclassified (20 sources) BMI 37.0-37.9, adult Unclassified (19 sources) Pregnancies (); Translations: [Pregnancies ()] 03-19-2021 Comment on above: 2 Unclassified (20 sources) Weight gain Unclassified (11 sources) Sinus pressure Unclassified (6 sources) Sinusitis, acute Unclassified (6 sources) Encounter for hepatitis C virus screening test for high risk patient Unclassified (6 sources) BMI 36.0-36.9,adult Unclassified (5 sources) BMI 35.0-35.9,adult Unclassified (3 sources) Hematuria, microscopic Results Test Name Value Interpretation Reference Range Facility Urgent Care Visit Reporton 0 03-31-2025 Urgent Care Visit Report [facility] [address], [address] [place] [address] OFFICE VISIT Date of Service: 03/31/25 MR#: [id number] Acct: [id number] Name: PARESH ALANIS Rep #: [id number] : 1950 Provider: JAYLEN James Age/Sex: 74/F Location: [facility] [place] Status: Signed Intake Vital Signs 07/06/24 14:03 03/31/25 11:16 Height 5 ft 1 in BP 156/76 H Blood Pressure Location Lt brachial Position Sitting Respiration 17 Pulse 80 Pulse Source NIBP Temp 98.4 F Temp Source Oral Pulse Oximetry (%) 97 Oxygen Delivery Method room air Intake Visit Reasons: Cough 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 Is patient in pain?: No Allergies No Known Allergies Allergy (Verified 03/31/25 11:41) Medications ???Medication ???Instructions ???Recorded ???Confirmed ???Type hydrochlorothiazide 25 mg tablet 1 tab PO DAILY 11/15/18 03/31/25 H istory metformin 500 mg tablet,extended 1 tab PO DAILY 11/15/18 03/31/25 H istory release 24 hr benzonatate 100 mg capsule 100 mg PO TID #30 caps 03/31/25 Rx guaifenesin 600 mg tablet, 600 mg PO BID #30 tabs 03/31/25 Rx extended release 12 hr (Mucinex) Is last menstrual period known: No Post menopausal: Yes Patient : No Have you fallen in the past year?: No Nurse's Note: cough x 1 week. denies lung hx, denies ALMANZAR, BA, fever, ST, congestion. denies environmental allergies. [facility] Medical History Limb weakness Knee pain Diabetes Shoulder pain Arthritis HTN (hypertension) Social History Smoking Status: Light Smoker (<10/day) alcohol intake: never HPI HPI Chief Complaint: cough Details: PARESH ALANIS, is a 74 F who presents to the office today for cough -hx htn- elevated- did not take med today- denies cp, palpitations. edema, sob -sx started this Wednesday -sx cough- on occasion brings up some yellow sputum- but mostly dry cough, denies runny nose or congestion, denies fever or chills, starts started out with ST but has subsided- denies any other sx -tried so far Tylenol and cough drops ROS Const Constitutional: Positive for other (ROS negative x6 except what was placed in HPI) Exam Const General: cooperative, comfortable and no acute distress Orientation: alert, awake and oriented x3 HENMT Head: normal to inspection and normocephalic Ears: hearing grossly normal bilaterally, external ears normal and TM's normal bilaterally Nose: external nose normal and other (+ congestion and rhinorrhea- moderate ) Face and sinus: normal facial exam, sinuses nontender and face symmetric Mouth: oral mucosae normal, lip normal, tongue normal, oropharynx normal and moist mucous membranes Throat: posterior oropharynx normal, tonsils normal, uvula midline and postnasal drainage Neck Neck: normal visual inspection, full ROM and no lymphadenopathy Resp Effort Inspection: normal respiratory effort, able to speak in complete sentences and symmetric chest movement Auscultation: Bilateral: Clear to Auscultation, Left: Clear to Auscultation and Right: Clear to Auscultation Other: -wet cough heard several times on exam Cardio Rate: regular rate Rhythm: regular rhythm Heart Sounds: S1 normal and S2 normal GI Auscultation: normal bowel sounds Palpation: soft Skin General: no rashes or lesions noted and turgor normal Neuro General: patient alert, patient awake and patient oriented x3 Cognition: normal cognition Speech: speech normal Psych Appearance: grossly normal Mental Status: mental status grossly normal Attitude: cooperative Thought Process: normal Thought Content: normal Coding Level of Care Code Off vis,est,level 3 Diagnoses Acute cough R05.1 Cough type: acute Nasal congestion R09.81 Rhinorrhea J34.89 Cigarette nicotine dependence without complication F17.210 Nicotine product type: cigarettes Substance use status: uncomplicated Primary hypertension I10 Hypertension type: primary hypertension Assessment and Plan Assessment and Plan (1) Cough: Status: Acute Qualifiers: Cough type: acute Qualified Code(s): R05.1 - Acute cough Plan: - warm tea with honey, increase fluids, saline nasal spray 2 squirts each nostril every 2 hours as needed, Flonase nasal spray 1 squirt once a day, cetirizine (Zyrtec) one daily, cool mist hum idifier, Tylenol and or ibuprofen as needed (as long as not contraindicated) for fever or discomfort. mucinex 2x day with a lot of water. Stop smoking -Please follow up with your Primary Care Physician for ongoing chronic problems. If symptoms change or worsen, please present to Emergency Room for further evaluation 1. See visit diagnoses, dispositi (more content not included)... Normal [facility] Urgent Care Visit Reporton 1 01-15-2024 Urgent Care Visit Report [facility] [address], [address] [place] [address] OFFICE VISIT Date of Service: 11/14/24 MR#: [id number] Acct: [id number] Name: PARESH ALANIS Rep #: [id number] : 1950 Provider: CIRA Lemos Age/Sex: 74/F Location: [facility] – [place] Status: Signed Intake Vital Signs 07/06/24 14:03 11/14/24 17:15 Height 5 ft 1 in Weight: 220 lb BMI 41.5 BP 122/86 H 112/72 Blood Pressure Location Lt brachial Lt brachial Position Sitting Sitting Respiration 16 12 Pulse 98 103 H Pulse Source Monitor NIBP Temp 97.7 F L 98.2 F Temp Source Temporal Oral Pulse Oximetry (%) 98 92 Oxygen Delivery Method room air room air Intake Visit Reasons: Sinus infection 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 Is patient in pain?: No Allergies No Known Allergies Allergy (Verified 11/14/24 17:16) Is last menstrual period known: No Post menopausal: No Patient : No Have you fallen in the past year?: No Nurse's Note: patient here for cough and congestion x4 days PFSH Medical History Limb weakness Knee pain Diabetes Shoulder pain Arthritis HTN (hypertension) Social History Smoking Status: Light Smoker (<10/day) alcohol intake: never HPI HPI Chief Complaint: cough Details: PARESH ALANIS, is a 74 F who presents to the office today for [facility] evaluation at the [facility] for approximately 5-7 day history of progressively worsening facial pressure/congestion with purulent postnasal drip/cough. Tobacco smoker. No complaints of fever, chills, myalgias, fatigue, runny nose, or nausea/vomiting/diarrh ea. No complaints of chest pain/shortness of breath/dyspnea on exertion. No close contacts with similar complaints. No other associated symptoms and no other alleviating/aggravatin g factors. ROS Const Constitutional: No other (as above) Exam Const General: cooperative, healthy appearing and no acute distress Nutritional Appearance: average body habitus Orientation: alert, awake and oriented x3 HENMT Head: normal to inspection Ears: hearing grossly normal bilaterally, external ears normal, TM's normal bilaterally and EAC's normal Nose: external nose normal, nares normal, septum normal and no nasal discharge Face and sinus: normal facial exam, sinuses nontender (Though bilateral maxillary fullness to palpation) and face symmetric Mouth: oral mucosae normal, lip normal, tongue normal and oropharynx normal Throat: posterior oropharynx normal, tonsils normal, uvula midline and postnasal drainage (Purulent) Eyes General: appearance normal, both eyes and all related structures Neck Neck: normal visual inspection, full ROM, no meningeal signs, supple and lymphadenopathy (Bilateral anterior cervical lymph node swelling/tender to palpation) Neck mass: No Thyroid: thyroid normal Chest Chest palpation inspection: normal inspection of the chest Resp Effort Inspection: normal respiratory effort and able to speak in complete sentences Auscultation: Bilateral: Clear to Auscultation Cardio Palpation: normal PMI Rate: regular rate Rhythm: regular rhythm Heart Sounds: S1 normal, S2 normal, no gallops, no murmurs and no rubs Pulses: radial pulses present GI Inspection: normal to inspection Skin General: no rashes or lesions noted Neuro General: patient alert, patient awake and patient oriented x3 Cognition: normal cognition Speech: speech normal Psych Appearance: grossly normal Mental Status: mental status grossly normal Mood: congruent mood Affect: normal affect Speech and Movement: speech and movement normal Attitude: cooperative Diagnoses Acute maxillary sinusitis, unspecified J01.00 Assessment and Plan Assessment and Plan (1) Acute maxillary sinusitis, unspecified: Status: Acute Plan: Amoxicillin as prescribed today. Supportive measures as instructed today. Stop smoking! Follow-up with PCP in 3 to 5 days should symptoms not improve, sooner should symptoms worsen or any other concerns develop. Patient states acknowledging understanding all the above Coding Level of Care Code Off vis,est,level 3 Diagnoses Sinusitis J32.9 Assessment and Plan Assessment and Plan (1) Sinusitis: Medications: New amoxicillin 500 mg PO TID 30 tabs 0RF Clinical Quality Measures Falls Risk Screening/Assistive Devices Have you fallen in the past year?: No 11/14/24 1723 Date Rambo Del Toro Signature: Date (if applicable) CC: Normal [facility] Carotid Duplex Ultrasoundon 11-07-2024 Carotid Duplex Ultrasound [facility] [address] [place] [address] Carotid Duplex Ultrasound 11/07/24 1401 MR#: [id number] Acct: [id number] Name: PARESH ALANIS Rep #: [id number] : 1950 73 From: Rito Kimball MD Attending Dr: Dr. Chadd Morel MD Status: REG CLI Ordering Dr: Chadd Morel MD Date: 11/07/24 Location: [facility] Sex: F C Admitted: Reason For Study: Amaurosis Fugax Rt. Velocities/BP Lt. Velocities/BP Dist CCA 55.4/11.9 cm/sec. Prox CCA 99.7/19.4 cm/sec. Mid CCA 79.8/18.2 cm/sec. Mid CCA 56.7/11.7 cm/sec. Prox CCA 76.5/17.1 cm/sec. Dist CCA 60.0/18.2 cm/sec. Dist ICA 75.4/18.2 cm/sec. Prox ICA 43.8/16.1 cm/sec. Mid ICA 62.0/21.5 cm/sec. Mid ICA 48.7/17.6 cm/sec. Prox ICA 45.0/16.6 cm/sec. Dist ICA 59.0/16.7 cm/sec. Rt. ICA/CCA = 0.9. Lt. ICA/CCA = 1.04. Prox ECA 101.4/12.4 cm/sec. Prox ECA 81.8/6.9 cm/sec. Rt. Vert. 47.9/10.6 cm/sec. Lt. Vert. 31.9/8.4 cm/sec. Right Extracranial There is intimal thickening but no significant atherosclerotic plaque noted in the right common carotid artery. There is intimal thickening but no significant atherosclerotic plaque noted in the right internal carotid artery. There is intimal thickening but no significant atherosclerotic plaque noted in the right external carotid artery. Antegrade flow is noted in the right vertebral artery. Left Extracranial There is intimal thickening but no significant atherosclerotic plaque noted in the left common carotid artery. There is intimal thickening but no significant atherosclerotic plaque noted in the left internal carotid artery. There is intimal thickening but no significant atherosclerotic plaque noted in the left external carotid artery. Antegrade flow is noted in the left vertebral artery. Procedure Carotid Duplex [id number]. This is a Carotid Duplex examination using B-mode, color flow and specral Doppler. The exam was diagnostic. Exam performed in department. VL/Carotid Duplex Ultrasound Interpretation Summary No significant atherosclerotic plaque or stenosis noted in the internal carotid arteries bilaterally. Flow within the vertebral arteries is antegrade bilaterally. Ordering Physician: Chadd Morel Referring Physician: Lupe Calvo M.D. Performed By: Fan Sears, RVT 11/08/24 0005 Date Rito Kimball MD CC: Dr. Lupe Calvo, DO; Dr. Chadd Morel MD Date Dictated: 11/07/24 1401 Date Transcribed: 11/08/24 0005 Email Manager: Signed Normal [facility] Urgent Care Visit Reporton 0 07-06-2024 Urgent Care Visit Report [facility] [address], [address] [place] [address] OFFICE VISIT Date of Service: 07/06/24 MR#: [id number] Acct: [id number] Name: PARESH ALANIS Rep #: [id number] : 1950 Provider: CIRA Paluino Age/Sex: 73/F Location: [facility] – [place] Status: Signed Intake Vital Signs 12/31/20 16:08 07/06/24 14:03 Height 5 ft 5 ft 1 in Weight: 220 lb BMI 41.5 BP 122/86 H Blood Pressure Location Lt brachial Position Sitting Respiration 16 Pulse 98 Pulse Source Monitor Temp 97.7 F L Temp Source Temporal Pulse Oximetry (%) 98 Oxygen Delivery Method room air Intake Visit Reasons: POISON DONNA 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 Accompanied by: Self Is patient in pain?: No Allergies No Known Allergies Allergy (Unverified 07/06/24 14:03) Medications ???Medication ???Instructions ???Recorded ???Confirmed ???Type hydrochlorothiazide 25 mg tablet 1 tab PO DAILY 11/15/18 07/06/24 History metformin 500 mg tablet,extended 1 tab PO DAILY 11/15/18 07/06/24 History release 24 hr nitrofurantoin 100 mg PO Q12 #14 caps 11/15/18 07/06/24 Rx monohydrate/macrocryst als 100 mg capsule Have you fallen in the past year?: No PFSH Medical History Limb weakness Knee pain Diabetes Shoulder pain Arthritis HTN (hypertension) Social History Smoking Status: Light Smoker (<10/day) alcohol intake: never HPI HPI Chief Complaint: poison donna Details: PARESH ALANIS, is a 73 F who presents to the office today for complaint of poison donna rash. Patient states that over the past several days the poison donna rash to her arms have worsened. She states having known exposure and has been trying cortisone cream without relief. She denies lip/tongue/throat swelling. No shortness of breath, difficulty breathing or chest pain. No other associated symptoms or alleviating/aggravatin g factors. ROS Const Constitutional: No other (Sick system ROS completed with pertinent findings in the HPI otherwise norm) Exam Const General: cooperative and healthy appearing HENVT Head: normocephalic and atraumatic Ears: hearing grossly normal bilaterally Nose: external nose normal Face and sinus: normal facial exam and face symmetric Mouth: oral mucosae normal Throat: posterior oropharynx normal Resp Effort Inspection: normal respiratory effort Cardio Rate: regular rate Skin Other: Grouped vesicular lesions bilateral upper extremities. Neuro General: patient alert Psych Appearance: grossly normal Mental Status: mental status grossly normal Office Procedures Ortho Injections Injections Is this a patient provided medication?: Yes Office Meds Kenalog 40 mg/mL suspension for injection Performing Provider: CIRA West Performing Location: [facility] Administered by: Cherry Navarro MA on 07/06/24 14:14 Dose Route Admin Location Dispensed Lot Number Expiration Date NDMayo Bruner ufacturer 60 mg intra-articular right glutus 1.5 mL [id number] 03/29/26 [id number] [facility] Coding Level of Care Code Off vis,new,level 3 Diagnoses Irritant contact dermatitis due to plant L24.7 Assessment and Plan Assessment and Plan (1) Irritant contact dermatitis due to plant: Status: Acute Orders: Orders Kenalog Injection Today L23.7 - Allergic contact dermatitis due to plants, except food Plan Kenalog injection given in the office today. Encouraged to get plenty of rest, drink lots of clear liquids, and use Benadryl for comfort. Patient also educated on other symptomatic management techniques. To be seen in 7-10 days if no improvement; sooner if worsening of symptoms. Patient advised of potential red flags and when appropriate to report to the ED. Patient verbalized understanding and agreement with all of the above. Clinical Quality Measures Falls Risk Screening/Assistive Devices Have you fallen in the past year?: No 07/06/24 1739 Date Horace Del Toro Signature: Date (if applicable) CC: Normal [facility] INHOUSE COVID 19 (ONLY) RAPI D ([id number])Ordered By: BEN Willis on 07-30-2023 SARS-CoV-2 (COVID-19) RNA ZOYA+probe Ql (Unsp spec) Positive Normal [facility]; [facility] Work Phone: Inhouse FLU A+B DIRECT AG, ( RAPID) ([id number])Ordered By: BEN Willis on 07-30-2023 FLUAV+FLUBV Ag Ql (Unsp spec) Negative Normal [facility]; [facility] Work Phone: CALCIFIDIOL (51952) VIT D 25 Ordered By: Supplier Development Manager on 03-15-2023 25-hydroxyvitamin D [Mass/Vol] 29.3 ng/mL Abnormal 30.0-100.0 [facility]; [facility] Work Phone: Comment on above: Vitamin D deficiency has been defined by the [place] ofMedicine and an Endocrine Society practice guideline as alevel of serum 25-OH vitamin D less than 20 ng/mL (1,2).The Endocrine Society went on to further define vitamin Dinsufficiency as a level between 21 and 29 ng/mL (2).1. IOM ([place] of Medicine). 2010. Dietary reference intakes for calcium and D. [place]: The National Academies Press.2. Janelle MF, Meng ARAIZA, Tracy ALMANZAR, et al. Evaluation, treatment, and prevention of vitamin D deficiency: an Endocrine Society clinical practice guideline. JCEM. 2010; 96(7):1911-30. PATIENT WAS FASTINGP ERFORMED BY: [employer] Laound[address] Blistersblin [place] [id number] CBC W/AUTO DIFF WBC (07405)O rdered By: Supplier Development Manager on 03-15-2023 Basophils (Bld) [#/Vol] 0.1 10*3/uL Normal 0.0-0.2 [facility]; [facility] Work Phone: Comment on above: PATIENT WAS FASTINGP ERFORMED BY: LabMippin Xtfjoa9597 [address] RoadDublin [place] [id number] Basophils/100 WBC (Bld) 1 % Normal [facility]; [facility] Work Phone: Comment on above: PATIENT WAS FASTINGP ERFORMED BY: [employer] LabMippin Wikaey[address] Socrates Health SolutionsDublin [place] [id number] Eosinophils (Bld) [#/Vol] 0.1 10*3/uL Normal 0.0-0.4 [facility]; [facility] Work Phone: Comment on above: PATIENT WAS FASTINGP ERFORMED BY: [employer] LabHelix Healthrp Fkbiyn4956 [address] RoadDublin [place] [id number] Eosinophils/100 WBC (Bld) 1 % Normal [facility]; [facility] Work Phone: Comment on above: PATIENT WAS FASTINGP ERFORMED BY: [employer] LabMippin Ruthtx[address] Health Solutionsblin [place] [id number] Erythrocyte distribution width (RBC) [Ratio] 12.4 % Normal 11.7-15.4 [facility]; [facility] Work Phone: Comment on above: PATIENT WAS FASTINGP ERFORMED BY: [facility]co Airrvq4744 [address] RoadUnc Health Rexin [place] [id number] Hematocrit (Bld) [Volume fraction] 43.2 % Normal 34.0-46.6 [facility]; [facility] Work Phone: Comment on above: PATIENT WAS FASTINGP ERFORMED BY: [facility] [facility]in [place] [id number] Hemoglobin (Bld) [Mass/Vol] 14.9 g/dL Normal 11.1-15.9 [facility]; [facility] Work Phone: Comment on above: PATIENT WAS FASTINGP ERFORMED BY: LabUniversity [facility] Hospital6[address] RoadUnc Health Rexin [place] [id number] Immature granulocytes (Bld) [#/Vol] 0.0 10*3/uL Normal 0.0-0.1 [facility]; [facility] Work Phone: Comment on above: PATIENT WAS FASTINGP ERFORMED BY: [facility]University [facility]6[address] RoadUnc Health Rexin [place] [id number] Immature granulocytes/100 WBC (Bld) 0 % Normal [facility]; [facility] Work Phone: Comment on above: PATIENT WAS FASTINGP ERFORMED BY: Labcox north Tvwtdo4058 [address] RoadUnc Health Rexin [place] [id number] Lymphocytes (Bld) [#/Vol] 2.9 10*3/uL Normal 0.7-3.1 [facility]; [facility] Work Phone: Comment on above: PATIENT WAS FASTINGP ERFORMED BY: Labcox north Iaphwd2644 [address] Roadblin [place] [id number] Lymphocytes/100 WBC (Bld) 33 % Normal [facility]; [facility] Work Phone: Comment on above: PATIENT WAS FASTINGP ERFORMED BY: [facility] Mzgtoj7188 [address] RoadDublin [place] [id number] MCH (RBC) [Entitic mass] 31.6 pg Normal 26.6-33.0 [facility]; [facility] Work Phone: Comment on above: PATIENT WAS FASTINGP ERFORMED BY: CB [facility] Vbveja5156 [address] RoadDublin [place] [id number] MCHC (RBC) [Mass/Vol] 34.5 g/dL Normal 31.5-35.7 [facility] prehensive Internal Medicine; [facility] Work Phone: Comment on above: PATIENT WAS FASTINGP ERFORMED BY: CB [facility] Owteqn9421 [address] RoadDublin [place] [id number] MCV (RBC) [Entitic vol] 92 fL Normal 79-97 [facility]; [facility] Work Phone: Comment on above: PATIENT WAS FASTINGP ERFORMED BY: CB [facility] Sgpxcd6876 [address] RoadDublin [place] [id number] Monocytes (Bld) [#/Vol] 0.6 10*3/uL Normal 0.1-0.9 [facility]; [facility] Work Phone: Comment on above: PATIENT WAS FASTINGP ERFORMED BY: CB [facility] Tczyzm4851 [address] RoadDublin [place] [id number] Monocytes/100 WBC (Bld) 7 % Normal [facility]; [facility] Work Phone: Comment on above: PATIENT WAS FASTINGP ERFORMED BY: CB [facility] Memyhd9233 [address] RoadDublin [place] [id number] Neutrophils (Bld) [#/Vol] 5.2 10*3/uL Normal 1.4-7.0 [facility]; [facility] Work Phone: Comment on above: PATIENT WAS FASTINGP ERFORMED BY: CB [facility] Odcdni4452 [address] RoadDublin [place] [id number] Neutrophils/100 WBC (Bld) 58 % Normal [facility]; [facility] Work Phone: Comment on above: PATIENT WAS FASTINGP ERFORMED BY: CB [facility] Yjkkpg6603 [address] RoadDublin [place] [id number] Platelets (Bld) [#/Vol] 283 10*3/uL Normal 150-450 [facility]; [facility] Work Phone: Comment on above: PATIENT WAS FASTINGP ERFORMED BY: MELYSSA Breaux6[address] RoadDublin [place] [id number] RBC (Bld) [#/Vol] 4.71 10*6/uL Normal 3.77-5.28 [facility]; [facility] Work Phone: Comment on above: PATIENT WAS FASTINGP ERFORMED BY: MELYSSA Breaux[address] RoadDublin [place] [id number] WBC (Bld) [#/Vol] 8.8 10*3/uL Normal 3.4-10.8 [facility]; [facility] Work Phone: Comment on above: PATIENT WAS FASTINGP ERFORMED BY: MELYSSA Breaux[address] RoadDublin [place] [id number] LIPID PANEL (34006)Ordered B y: Supplier Development Manager on 03-15-2023 Cholesterol [Mass/Vol] 221 mg/dL Abnormal 100-199 [facility]; [facility] Work Phone: Comment on above: PATIENT WAS FASTINGP ERFORMED BY: MELYSSA Breaux[address]Dublin [place] [id number] Cholesterol in HDL [Mass/Vol] 65 mg/dL Normal [facility]; [facility] Work Phone: Comment on above: PATIENT WAS FASTINGP ERFORMED BY: MELYSSA Breaux[address]Dublin [place] [id number] Triglyceride [Mass/Vol] 89 mg/dL Normal 0-149 [facility]; [facility] Work Phone: Comment on above: PATIENT WAS FASTINGP ERFORMED BY: MELYSSA Stoddardlin6[address] RoadDublin [place] [id number] LIPID PANEL (91412) 16 mg/dL Normal 5-40 [facility]; [facility] Work Phone: Comment on above: PATIENT WAS FASTINGP ERFORMED BY: MELYSSA Stoddardlin[address]Dublin [place] [id number] LIPID PANEL (52360) 140 mg/dL Abnormal 0-99 [facility]; [facility] Work Phone: Comment on above: PATIENT WAS FASTINGP ERFORMED BY: MELYSSA Johnsimeon StoddardIolcgs9526 [facility] [id number] LIPID PANEL (61027) 2.2 {ratio} Normal 0.0-3.2 [facility] Internal Medicine; [facility] Work Phone: Comment on above: LDL/HDL Ratio Men Wo men 1/2 Avg.Risk 1.0 1.5 Avg.Risk 3.6 3.2 2X Avg.Risk 6.2 5.0 3X Avg.Risk 8.0 6.1 PATIENT WAS FASTINGP ERFORMED BY: MELYSSA Stoddardlin6370 [facility] [id number] METABOLIC PANEL, COMPREHENSI VE (81227)Ordered By: Supplier Development Manager on 03-15-2023 Albumin [Mass/Vol] 4.2 g/dL Normal 3.8-4.8 [facility]; [facility] Work Phone: Comment on above: PATIENT WAS FASTINGP ERFORMED BY: MELYSSA Stoddardlin6370 [facility] [id number] Albumin/Globulin [Mass ratio] 1.8 {ratio} Normal 1.2-2.2 [facility]; [facility] Work Phone: Comment on above: PATIENT WAS FASTINGP ERFORMED BY: MELYSSA Stoddardlin6370 [facility] [id number] ALP [Catalytic activity/Vol] 93 U/L Normal 44-121 [facility]; [facility] Work Phone: Comment on above: PATIENT WAS FASTINGP ERFORMED BY: MELYSSA Labsimeon StoddardNqwhii3737 [facility] [id number] ALT [Catalytic activity/Vol] 29 U/L Normal 0-32 [facility]; [facility] Work Phone: Comment on above: PATIENT WAS FASTINGP ERFORMED BY: MELYSSA Labsimeon StoddardComqax7417 [facility] [id number] AST [Catalytic activity/Vol] 31 U/L Normal 0-40 [facility]; [facility] Work Phone: Comment on above: PATIENT WAS FASTINGP ERFORMED BY: MELYSSA Breaux[address]bl[address] [place] [id number] Bilirubin [Mass/Vol] 0.5 mg/dL Normal 0.0-1.[address] [facility] rehensive Internal Medicine; [facility] Work Phone: Comment on above: PATIENT WAS FASTINGP ERFORMED BY: Labco Aayovd7931 [facility] [id number] Calcium [Mass/Vol] 10.3 mg/dL Normal 8.7-10.3 [facility]; [facility] Work Phone: Comment on above: PATIENT WAS FASTINGP ERFORMED BY: LabUniversity [facility]6370 [facility] [id number] Chloride [Moles/Vol] 100 mmol/L Normal 96-[address] [facility] rehensive Internal Medicine; [facility] Work Phone: Comment on above: PATIENT WAS FASTINGP ERFORMED BY: Lab[facility] north Vbseoc0669 [facility]in [place] [id number] CO2 [Moles/Vol] 26 mmol/L Normal 20-[address] [facility]; [facility] Work Phone: Comment on above: PATIENT WAS FASTINGP ERFORMED BY: Labcox north Yoazol3124 [facility] [id number] Creatinine [Mass/Vol] 0.84 mg/dL Normal 0.57-1.00 [facility]; [facility] Work Phone: Comment on above: PATIENT WAS FASTINGP ERFORMED BY: Labcox north Frzjpe6283 [facility] [id number] GFR/1.73 sq M.predicted among non-blacks MDRD (S/P/Bld) [Vol rate/Area] 75 mL/min/{1.73_m2} Normal Comprehensiv e Internal Medicine; [facility] Work Phone: Comment on above: PATIENT WAS FASTINGP ERFORMED BY: [facility] Mbhuvh3284 [address] RoadDublin [place] [id number] Globulin (S) [Mass/Vol] 2.3 g/dL Normal 1.5-4.5 [facility] Internal Medicine; [facility] Work Phone: Comment on above: PATIENT WAS FASTINGP ERFORMED BY: CB [facility] Zfmpqo6354 [address] RoadDublin [place] [id number] Glucose [Mass/Vol] 90 mg/dL Normal 70-99 [facility]; [facility] Work Phone: Comment on above: PATIENT WAS FASTINGP ERFORMED BY: [facility] Dipdig5229 [address] RoadDublin [place] [id number] Potassium [Moles/Vol] 3.9 mmol/L Normal 3.5-5.2 [facility]; [facility] Work Phone: Comment on above: PATIENT WAS FASTINGP ERFORMED BY: [facility] Znxhwc2880 [address] RoadDublin [place] [id number] Protein [Mass/Vol] 6.5 g/dL Normal 6.0-8.5 [facility]; [facility] Work Phone: Comment on above: PATIENT WAS FASTINGP ERFORMED BY: [facility] Unwngi7779 [address] RoadDublin [place] [id number] Sodium [Moles/Vol] 138 mmol/L Normal 134-144 [facility]; [facility] Work Phone: Comment on above: PATIENT WAS FASTINGP ERFORMED BY: [facility] Gqighv1434 [address] RoadDublin [place] [id number] Urea nitrogen [Mass/Vol] 21 mg/dL Normal 8-27 [facility] Internal [facility]; [facility] Work Phone: Comment on above: PATIENT WAS FASTINGP ERFORMED BY: [facility] Ooljeh3331 [address] RoadDublin [place] [id number] Urea nitrogen/Creatinine [Mass ratio] 25 mg/mg Normal 12-28 [facility]; [facility] Work Phone: Comment on above: PATIENT WAS FASTINGP ERFORMED BY: MELYSSA [facility] Btmmmz7838 [address] RoadDublin [place] [id number] MICROALBUMINOrdered By: Vineloop Pasta Maker on 03-15-2023 Albumin DL <= 20 mg/L (U) [Mass/Vol] 3.1 ug/mL Normal [facility]; [facility] Work Phone: Comment on above: PATIENT WAS FASTINGP ERFORMED BY: MELYSSA [facility] Jxvyqz3851 [address] RoadDublin [place] [id number] Albumin/Creatinine (U) [Mass ratio] 4 {mg/g_creat} Normal 0-29 [facility]; [facility] Work Phone: Comment on above: Normal: 0 - 29 Moder ately increased: 30 - 300 Severely increased: >300 PATIENT WAS FASTINGP ERFORMED BY: MELYSSA [facility] Gttnjk4156 [address] RoadDublin [place] [id number] Creatinine (U) [Mass/Vol] 76.7 mg/dL Normal [facility]; [facility] Work Phone: Comment on above: PATIENT WAS FASTINGP ERFORMED BY: MELYSSA [facility] Rvvmsa2557 [address] RoadDublin [place] [id number] TSH ([id number])Ordered By: Vineloope Pasta Maker on 03-15-2023 TSH Qn 1.900 {uIU/mL} Normal 0.450-4.500 Comprehen sive Internal Medicine; [facility] Work Phone: Comment on above: PATIENT WAS FASTINGP ERFORMED BY: MELYSSA [facility] Tgfpiy9199 [address] RoadDublin [place] [id number] URINALYSIS, W/ MICRO ([id number]) Ordered By: Supplier Development Manager on 03-15-2023 Appearance (U) Clear Normal Comprehens vicenta [facility] Medicine; [facility] Work Phone: Comment on above: PATIENT WAS FASTINGP ERFORMED BY: MELYSSA [facility] Ahpcsf4949 [address] RoadDublin [place] [id number] Bilirubin Ql (U) Negative Normal Comprehe nsive Internal Medicine; [facility] Work Phone: Comment on above: PATIENT WAS FASTINGP ERFORMED BY: MELYSSA Labsimeon Breaux6[address]Dublin [place] [id number] Color (U) Yellow Normal [facility]; [facility] Work Phone: Comment on above: PATIENT WAS FASTINGP ERFORMED BY: MELYSSA Stoddardlin6[address]Dublin [place] [id number] Glucose Ql (U) Negative Normal Comprehens vicenta [facility]; [facility] Work Phone: Comment on above: PATIENT WAS FASTINGP ERFORMED BY: MELYSSA Labsimeon Breaux6[address]Dublin [place] [id number] Hemoglobin Ql (U) Negative Normal Compreh ensive Internal Medicine; [facility] Work Phone: Comment on above: PATIENT WAS FASTINGP ERFORMED BY: MELYSSA Breaux[address] [place] [id number] Ketones Ql (U) Negative Normal Comprehens vicenta [facility]; [facility] Work Phone: Comment on above: PATIENT WAS FASTINGP ERFORMED BY: MELYSSA Breaux[address] [place] [id number] Leukocyte esterase Test strip Ql (U) 1+ Abnormal [facility]; [facility] Work Phone: Comment on above: PATIENT WAS FASTINGP ERFORMED BY: MELYSSA Breaux[address]Dublin [place] [id number] Microscopic observation LM Nom (Urine sed) See below: Normal [facility]; [facility] Work Phone: Comment on above: Microscopic was maxine cated and was performed. PATIENT WAS FASTINGP ERFORMED BY: MELYSSA Labsimeon Hxzqni8892 [address] RoadDublin [place] [id number] Nitrite Ql (U) Negative Normal Comprehens vicenta [facility]; [facility] Work Phone: Comment on above: PATIENT WAS FASTINGP ERFORMED BY: MELYSSA Labsimeon StoddardXhcndi3438 [address] RoadDublin [place] [id number] pH (U) 5.5 [pH] Normal 5.0-7.5 [facility]; [facility] Work Phone: Comment on above: PATIENT WAS FASTINGP ERFORMED BY: Sarsys Apitxa0874 [facility] [id number] Protein Ql (U) Negative Normal Comprehens vicenta [facility] Medicine; [facility] Work Phone: Comment on above: PATIENT WAS FASTINGP ERFORMED BY: LabHelix Health Bhtzzk2783 [facility] [id number] Specific gravity (U) [Rel density] 1.019 1 Normal 1.005-1.030 [facility]; [facility] Work Phone: Comment on above: PATIENT WAS FASTINGP ERFORMED BY: [facility]Hel[facility] Ycaaie6322 [facility] [id number] Urobilinogen (U) [Mass/Vol] 0.2 mg/dL Normal 0.2-1.0 [facility]; [facility] Work Phone: Comment on above: PATIENT WAS FASTINGP ERFORMED BY: [facility] Afpcbb5167 [facility] [id number] Blood Glucose , Office ([phone])Ordered By: Lupe Calvo on 02-08-2023 Glucose Glucometer (BldC) [Moles/Vol] 110 1 Normal [facility]; [facility] Work Phone: HgA1C , Office ([phone])Ordere d By: Lupe Calvo on 02-08-2023 HbA1c (Bld) [Mass fraction] 5.9 % Normal 4.6 - 7.1 [facility]; [facility] Work Phone: Basophil percentageon 2021 Chloride [Moles/Vol] 104 mmol/L 98-[address] [facility] Work Phone: Glucose [Mass/Vol] 75 mg/dL 74-106 [place] [facility] Work Phone: Potassium [Moles/Vol] 3.3 mmol/L 3.5-5.1 [place] [address] [facility] Work Phone: Sodium [Moles/Vol] 139 mmol/L 136-145 [facility] Work Phone: Laboratory - Chemistry and C hemistry - challengeon 02-13-2022 CO2 [Moles/Vol] 31.0 mmol/L 21.0-32.0 [facility] Work Phone: Urea nitrogen/Creatinine [Mass ratio] 25.4 mg/mg 10-20 [facility] Work Phone: No Panel Informationon 02-13 Estimated GFR (MDRD) Amer 93 mL/min >60 [facility] Work Phone: Comment on above: GFR Calc Estimated GFR (MDRD) Non-Af Amer 77 mL/min >60 [facility] Work Phone: Comment on above: Non- GFR Calc Serum or plasma calcium dayanna urement (mass/volume)on 02-13-2022 Calcium [Mass/Vol] 9.7 mg/dL 8.5-10.1 [facility] Work Phone: Serum or plasma creatinine m easurement (mass/volume)on 02-13-2022 Creatinine [Mass/Vol] 0.79 mg/dL 0.55-1.02 [facility] Work Phone: Comment on above: The validity of the calculated GFR & GFRAA in patients over 70 years has not been determined. Clinical correlation is essential. Serum or plasma urea nitroge n measurement (mass/volume)on 02-13-2022 Urea nitrogen [Mass/Vol] 20 mg/dL 7-18 [facility] Work Phone: Thin prep Papanicolaou smear with manual screeningon 02-13-2022 Thin prep Papanicolaou smear with manual screening 4 5-15 [facility] Work Phone: Cytology report of Body flui d Cyto stainon 02-11-2022 Cytology report Cyto stain Doc (Body fld) SEE PATHOLOGY REPORT [facility] Work Phone: Comment on above: Specimen submitted t o Anatomical Pathology Department for testing. Blood Glucose , Office ([phone] 2)Ordered By: Lupe Calvo on 09-29-2021 Glucose Glucometer (BldC) [Moles/Vol] 145 1 Normal [facility]; [facility] Work Phone: HgA1C , Office ([phone])Ordere d By: Suzy Heller on 09-29-2021 HbA1c (Bld) [Mass fraction] 5.5 % Normal 4.6 - 7.1 [facility]; [facility] Work Phone: TSH ([id number])Ordered By: Romana m Pasta Maker on 12-26-2020 TSH Qn 2.030 {uIU/mL} Normal 0.450-4.[address] [facility]; [facility] Work Phone: Comment on above: PATIENT NOT FASTINGP ERFORMED BY: [place] [id number] CALCIFIDIOL (07192) VIT D 25 Ordered By: Supplier Development Manager on 10-17-2020 25-Hydroxyvitamin D2+25-Hydroxyvitamin D3 [Mass/Vol] 23.6 ng/mL Abnormal 30.0-100.0 [facility] Work Phone: Comment on above: Vitamin D deficiency has been defined by the [place] ofMedicine and an Endocrine Society practice guideline as alevel of serum 25-OH vitamin D less than 20 ng/mL (1,2).The Endocrine Society went on to further define vitamin Dinsufficiency as a level between 21 and 29 ng/mL (2).1. IOM ([place] of Medicine). 2010. Dietary reference intakes for calcium and D. [place]: The National Academies Press.2. Janelle MF, Meng [place], Tracy ALMANZAR, et al. Evaluation, treatment, and prevention of vitamin D deficiency: an Endocrine Society clinical practice guideline. JCEM. 2010; 96(7):1911-30. PATIENT WAS FASTINGP ERFORMED BY: [employer] LabMonte Cristo Klnnhc8481 [address]ibe[address] RoadDublin [place] [id number] CBC W/AUTO DIFF WBC (71853)O rdered By: Supplier Development Manager on 10-17-2020 Basophils (Bld) [#/Vol] 0.1 {x10E3/uL} Normal 0.0-0.2 [facility] Work Phone: Comment on above: PATIENT WAS FASTINGP ERFORMED BY: MELYSSA [facility] Dphrrv6315 [address] RoadDublin [place] [id number] Basophils (Bld) [#/Vol] 0.1 10*3/uL Normal 0.0-0.2 [facility]; [facility] Work Phone: Comment on above: PATIENT WAS FASTINGP ERFORMED BY: MELYSSA [facility] Lnulvu6857 [address] RoadDublin [place] [id number] Basophils/100 WBC (Bld) 1 % Normal [facility] Work Phone: Comment on above: PATIENT WAS FASTINGP ERFORMED BY: MELYSSA [facility] Midjdg5655 [address] RoadDublin [place] [id number] Eosinophils (Bld) [#/Vol] 0.2 {x10E3/uL} Normal 0.0-0.4 [facility] Work Phone: Comment on above: PATIENT WAS FASTINGP ERFORMED BY: [facility] Xkaeef0758 [address] RoadDublin [place] [id number] Eosinophils (Bld) [#/Vol] 0.2 10*3/uL Normal 0.0-0.4 [facility]; [facility] Work Phone: Comment on above: PATIENT WAS FASTINGP ERFORMED BY: [facility] Zscjyd0588 [address] RoadDublin [place] [id number] Eosinophils/100 WBC (Bld) 2 % Normal [facility] Work Phone: Comment on above: PATIENT WAS FASTINGP ERFORMED BY: [facility] Ebbkch1955 [address] RoadDublin [place] [id number] Erythrocyte distribution width (RBC) [Ratio] 12.6 % Normal 11.7-15.4 [facility] Work Phone: Comment on above: PATIENT WAS FASTINGP ERFORMED BY: [facility] Gfqubn1958 [address] RoadDublin [place] [id number] Hematocrit (Bld) [Volume fraction] 43.5 % Normal 34.0-46.6 [facility] Work Phone: Comment on above: PATIENT WAS FASTINGP ERFORMED BY: MELYSSA Jm Breaux6370 [facility] [id number] Hemoglobin (Bld) [Mass/Vol] 14.8 g/dL Normal 11.1-15.9 [facility] Work Phone: Comment on above: PATIENT WAS FASTINGP ERFORMED BY: [facility] Yyraiq19[address] [id number] Immature granulocytes (Bld) [#/Vol] 0.0 {x10E3/uL} Normal 0.0-0.1 [facility] Work Phone: Comment on above: PATIENT WAS FASTINGP ERFORMED BY: MELYSSA [facility] Ddmbvc[address] [id number] Immature granulocytes (Bld) [#/Vol] 0.0 10*3/uL Normal 0.0-0.1 [facility]; [facility] Work Phone: Comment on above: PATIENT WAS FASTINGP ERFORMED BY: MELYSSA [facility] Zfzfoj1557 [facility] [id number] Immature granulocytes/100 WBC (Bld) 0 % Normal [facility] Work Phone: Comment on above: PATIENT WAS FASTINGP ERFORMED BY: MELYSSA [facility] Ovflod9451 [facility] [id number] Lymphocytes (Bld) [#/Vol] 4.0 {x10E3/uL} Abnormal 0.7-3.1 [facility] Work Phone: Comment on above: PATIENT WAS FASTINGP ERFORMED BY: [place] [id number] [facility] [id number] Lymphocytes (Bld) [#/Vol] 4.0 10*3/uL Abnormal 0.7-3.1 [facility]; [facility] Work Phone: Comment on above: PATIENT WAS FASTINGP ERFORMED BY: [place] [id number] [address]bl[address] [place] [id number] Lymphocytes/100 WBC (Bld) 40 % Normal [facility] Work Phone: Comment on above: PATIENT WAS FASTINGP ERFORMED BY: MELYSSA Stoddardlin6370 [address] RoadDublin [place] [id number] MCH (RBC) [Entitic mass] 32.2 pg Normal 26.6-33.0 [facility] Work Phone: Comment on above: PATIENT WAS FASTINGP ERFORMED BY: [facility] Dkbmub2295 [address] Roadblin [place] [id number] MCHC (RBC) [Mass/Vol] 34.0 g/dL Normal 31.5-35.7 [facility] Internal Medicine Work Phone: Comment on above: PATIENT WAS FASTINGP ERFORMED BY: MELYSSA [facility] Zcwdaa9836 [facility] [place] [id number] MCV (RBC) [Entitic vol] 95 fL Normal 79-97 [facility] Work Phone: Comment on above: PATIENT WAS FASTINGP ERFORMED BY: MELYSSA [facility] Nybaam6719 [facility] [place] [id number] Monocytes (Bld) [#/Vol] 0.7 {x10E3/uL} Normal 0.1-0.9 [facility] Work Phone: Comment on above: PATIENT WAS FASTINGP ERFORMED BY: LabAsp[facility]6370 [address] [facility] Hospitalblin [place] [id number] Monocytes (Bld) [#/Vol] 0.7 10*3/uL Normal 0.1-0.9 [facility] Internal Medicine; [facility] Work Phone: Comment on above: PATIENT WAS FASTINGP ERFORMED BY: [facility] Sigdvq7432 [address] RoadDublin [place] [id number] Monocytes/100 WBC (Bld) 7 % Normal [facility] Work Phone: Comment on above: PATIENT WAS FASTINGP ERFORMED BY: LabAsp[facility]6370 [facility] ClareDublin [place] [id number] Neutrophils (Bld) [#/Vol] 5.0 {x10E3/uL} Normal 1.4-7.0 [facility] Work Phone: Comment on above: PATIENT WAS FASTINGP ERFORMED BY: MELYSSA [facility] Uwuhmr9823 [address] RoadDublin [place] [id number] Neutrophils (Bld) [#/Vol] 5.0 10*3/uL Normal 1.4-7.0 [facility]; [facility] Work Phone: Comment on above: PATIENT WAS FASTINGP ERFORMED BY: MELYSSA [facility] Ipacai0792 [address] RoadDublin [place] [id number] Neutrophils/100 WBC (Bld) 50 % Normal [facility] Work Phone: Comment on above: PATIENT WAS FASTINGP ERFORMED BY: MELYSSA LabConhi StoddardHdrkaj7105 [address] RoadDublin [place] [id number] Platelets (Bld) [#/Vol] 301 {x10E3/uL} Normal 150-450 [facility] Work Phone: Comment on above: PATIENT WAS FASTINGP ERFORMED BY: MELYSSA [facility] Ybmssn4012 [address] RoadDublin [place] [id number] Platelets (Bld) [#/Vol] 301 10*3/uL Normal 150-450 [facility]; [facility] Work Phone: Comment on above: PATIENT WAS FASTINGP ERFORMED BY: MELYSSA [facility] Zttjet4490 [address] RoadDublin [place] [id number] RBC (Bld) [#/Vol] 4.60 {x10E6/uL} Normal 3.77-5.28 [facility] Internal Medicine Work Phone: Comment on above: PATIENT WAS FASTINGP ERFORMED BY: MELYSSA [facility] Bzyvld7984 [address] RoadDublin [place] [id number] RBC (Bld) [#/Vol] 4.60 10*6/uL Normal 3.77-5.28 [facility] Internal Medicine; [facility] Work Phone: Comment on above: PATIENT WAS FASTINGP ERFORMED BY: MELYSSA LabSimeon StoddardSdkuca6035 [address] RoadDublin [place] [id number] WBC (Bld) [#/Vol] 9.9 {x10E3/uL} Normal 3.4-10.8 [facility] Work Phone: Comment on above: PATIENT WAS FASTINGP ERFORMED BY: MELYSSA [facility] Byelep7721 [address] RoadDublin [place] [id number] WBC (Bld) [#/Vol] 9.9 10*3/uL Normal 3.4-10.8 [facility] Internal Medicine; [facility] Work Phone: Comment on above: PATIENT WAS FASTINGP ERFORMED BY: MELYSSA LabSimeon StoddardFvzjne6988 [address] RoadDublin [place] [id number] LIPID PANEL ([id number])Ordered B y: Supplier Development Manager on 10-17-2020 Cholesterol [Mass/Vol] 213 mg/dL Abnormal 100-199 [facility] Centerensive [facility] Work Phone: Comment on above: PATIENT WAS FASTINGP ERFORMED BY: MELYSSA LabSimeon StoddardGrzkpu6152 [address] RoadDublin [place] [id number] Cholesterol in HDL [Mass/Vol] 67 mg/dL Normal [facility] Work Phone: Comment on above: PATIENT WAS FASTINGP ERFORMED BY: MELYSSA Stoddardlin6370 [address] [facility]in [place] [id number] Cholesterol in LDL/Cholesterol in HDL [Mass ratio] 1.9 {ratio} Normal 0.0-3.2 [facility] Work Phone: Comment on above: LDL/HDL Ratio Men Wo men 1/2 Avg.Risk 1.0 1.5 Avg.Risk 3.6 3.2 2X Avg.Risk 6.2 5.0 3X Avg.Risk 8.0 6.1 PATIENT WAS FASTINGP ERFORMED BY: MELYSSA LabSimeon Xaezbq4319 [address] RoadDublin [place] [id number] Triglyceride [Mass/Vol] 125 mg/dL Normal 0-149 [facility] Work Phone: Comment on above: PATIENT WAS FASTINGP ERFORMED BY: MELYSSA [facility] Ybwkyr5168 [address] RoadDublin [place] [id number] LIPID PANEL (88009) 124 mg/dL Abnormal 0-99 [facility] Work Phone: Comment on above: PATIENT WAS FASTINGP ERFORMED BY: MELYSSA [facility] Dzzzmu2935 [address] RoadDublin [place] [id number] LIPID PANEL (84139) 22 mg/dL Normal 5-40 [facility] Internal Medicine Work Phone: Comment on above: PATIENT WAS FASTINGP ERFORMED BY: MELYSSA [facility] Lxknba1783 [address] Roadblin [place] [id number] LIPID PANEL (19304) 1.9 {ratio} Normal 0.0-3.2 [facility]erens[facility]; [facility] Work Phone: Comment on above: LDL/HDL Ratio Men Wo men 1/2 Avg.Risk 1.0 1.5 Avg.Risk 3.6 3.2 2X Avg.Risk 6.2 5.0 3X Avg.Risk 8.0 6.1 PATIENT WAS FASTINGP ERFORMED BY: MELYSSA [facility] Vmwxhg0350 [address] [facility]in [place] [id number] METABOLIC PANEL, COMPREHENSI VE ([id number])Ordered By: Supplier Development Manager on 10-17-2020 Albumin [Mass/Vol] 4.0 g/dL Normal 3.8-4.8 [facility] Internal Medicine Work Phone: Comment on above: PATIENT WAS FASTINGP ERFORMED BY: MELYSSA [facility] Xcstlh3099 [address] [facility]in [place] [id number] Albumin/Globulin [Mass ratio] 1.3 {ratio} Normal 1.2-2.2 [facility] Work Phone: Comment on above: PATIENT WAS FASTINGP ERFORMED BY: MELYSSA [facility] Twdqvv7944 [address] [facility] Hospitalblin [place] [id number] ALP [Catalytic activity/Vol] 90 [iU]/L Normal 39-117 [facility] Work Phone: Comment on above: PATIENT WAS FASTINGP ERFORMED BY: MELYSSA [facility] Joovna8014 [address] RoadDublin [place] [id number] ALP [Catalytic activity/Vol] 90 U/L Normal 39-117 [facility]; [facility] Work Phone: Comment on above: PATIENT WAS FASTINGP ERFORMED BY: [facility] Nixviz0798 [address] RoadDublin [place] [id number] ALT [Catalytic activity/Vol] 20 [iU]/L Normal 0-32 [facility] Work Phone: Comment on above: PATIENT WAS FASTINGP ERFORMED BY: [facility] Sczqqn6942 [address] RoadDublin [place] [id number] ALT [Catalytic activity/Vol] 20 U/L Normal 0-32 [facility]; [facility] Work Phone: Comment on above: PATIENT WAS FASTINGP ERFORMED BY: [facility] Axbacw9618 [address] RoadDublin [place] [id number] AST [Catalytic activity/Vol] 30 [iU]/L Normal 0-40 [facility] Work Phone: Comment on above: PATIENT WAS FASTINGP ERFORMED BY: LabCo Mkuiel0449 [address] RoadDublin [place] [id number] AST [Catalytic activity/Vol] 30 U/L Normal 0-40 [facility]; [facility] Work Phone: Comment on above: PATIENT WAS FASTINGP ERFORMED BY: [facility] Kmcxzr3406 [address] RoadDublin [place] [id number] Bilirubin [Mass/Vol] 0.4 mg/dL Normal 0.0-1.2 Comp rehensive Internal Medicine Work Phone: Comment on above: PATIENT WAS FASTINGP ERFORMED BY: LabCo Pijjke8883 [address] RoadDublin [place] [id number] Calcium [Mass/Vol] 10.0 mg/dL Normal 8.7-10.3 [facility] Internal Medicine Work Phone: Comment on above: PATIENT WAS FASTINGP ERFORMED BY: [facility] Qgxjxb8554 [address] RoadDublin [place] [id number] Chloride [Moles/Vol] 102 mmol/L Normal 96-106 Comp rehensive Internal Medicine Work Phone: Comment on above: PATIENT WAS FASTINGP ERFORMED BY: CB [facility] Dquxaw7439 [address] RoadDublin [place] [id number] CO2 [Moles/Vol] 25 mmol/L Normal 20-29 [facility] Internal Medicine Work Phone: Comment on above: PATIENT WAS FASTINGP ERFORMED BY: CB [facility] Ybljuy3548 [address] RoadDublin [place] [id number] Creatinine [Mass/Vol] 0.90 mg/dL Normal 0.57-1.00 [facility] Internal Medicine Work Phone: Comment on above: PATIENT WAS FASTINGP ERFORMED BY: CB [facility] Owcqnb3564 [address] RoadDublin [place] [id number] GFR/1.73 sq M predicted among blacks CKD-EPI (S/P/Bld) [Vol rate/Area] 77 mL/min/1.73 Normal [facility] Work Phone: Comment on above: PATIENT WAS FASTINGP ERFORMED BY: MELYSSA [facility] Urdzka1601 [address] RoadDublin [place] [id number] GFR/1.73 sq M predicted among non-blacks CKD-EPI (S/P/Bld) [Vol rate/Area] 66 mL/min/1.73 Normal [facility] Work Phone: Comment on above: PATIENT WAS FASTINGP ERFORMED BY: CB [facility] Agclqv5712 [address]bl[address] [place] [id number] Globulin (S) [Mass/Vol] 3.1 g/dL Normal 1.5-4.5 [facility] Work Phone: Comment on above: PATIENT WAS FASTINGP ERFORMED BY: CB [facility] Cvlxeq0440 [address] RoadDublin [place] [id number] Glucose [Mass/Vol] 71 mg/dL Normal 65-99 [facility] Internal Medicine Work Phone: Comment on above: PATIENT WAS FASTINGP ERFORMED BY: CB [facility] Guauvj4214 [address] RoadDublin [place] [id number] Potassium [Moles/Vol] 4.9 mmol/L Normal 3.5-5.2 [facility] Internal Medicine Work Phone: Comment on above: PATIENT WAS FASTINGP ERFORMED BY: MELYSSA LabSimeon StoddardEfcrsv8484 [address] RoadDublin [place] [id number] Protein [Mass/Vol] 7.1 g/dL Normal 6.0-8.5 [facility] Internal Medicine Work Phone: Comment on above: PATIENT WAS FASTINGP ERFORMED BY: MELYSSA LabSimeon StoddardTukeyv3498 [address] RoadDublin [place] [id number] Sodium [Moles/Vol] 142 mmol/L Normal 134-144 [facility] Internal Medicine Work Phone: Comment on above: PATIENT WAS FASTINGP ERFORMED BY: MELYSSA Stoddardlin6370 [address] RoadDublin [place] [id number] Urea nitrogen [Mass/Vol] 20 mg/dL Normal 8-27 [facility] Internal Medicine Work Phone: Comment on above: PATIENT WAS FASTINGP ERFORMED BY: MELYSSA Stoddardlin6370 [address] RoadUnc [facility] Rexin [place] [id number] Urea nitrogen/Creatinine [Mass ratio] 22 mg/mg Normal 12- [facility] Internal Medicine Work Phone: Comment on above: PATIENT WAS FASTINGP ERFORMED BY: MELYSSA Stoddardlin6370 [facility] ClareDuin [place] [id number] MICROALBUMINOrdered By: Syst em Pasta Maker on 10-17-2020 Albumin DL <= 20 mg/L (U) [Mass/Vol] 5.4 ug/mL Normal [facility] Work Phone: Comment on above: PATIENT WAS FASTINGP ERFORMED BY: MELYSSA LabSimeon Ibiico1373 [address] RoadDublin [place] [id number] Albumin/Creatinine (U) [Mass ratio] 6 {mg/g_creat} Normal 0-29 [facility] Work Phone: Comment on above: Normal: 0 - 29 Moder ately increased: 30 - 300 Severely increased: >300 PATIENT WAS FASTINGP ERFORMED BY: MELYSSA [facility] Moryxl0522 [address]bl[address] [place] [id number] Creatinine (U) [Mass/Vol] 88.5 mg/dL Normal [facility] Work Phone: Comment on above: PATIENT WAS FASTINGP ERFORMED BY: MELYSSA Jm Breaux6[address]bl[address] [place] [id number] TSH ([id number])Ordered By: Vineloope m Pasta Maker on 10-17-2020 TSH Qn 2.280 {uIU/mL} Normal 0.450-4.500 Comprehen sive Internal Medicine Work Phone: Comment on above: PATIENT WAS FASTINGP ERFORMED BY: MELYSSA Gerrynhi Skyiac5015 [address] [facility] Hospitalblin [place] [id number] URINALYSIS, W/ MICRO ([id number]) Ordered By: Supplier Development Manager on 10-17-2020 Appearance (U) Cloudy Abnormal Comprehens vicenta Internal Medicine Work Phone: Comment on above: PATIENT WAS FASTINGP ERFORMED BY: MELYSSA Jm Eziuyp5667 [address] RoadDublin [place] [id number] Bilirubin Ql (U) Negative Normal Comprehe nsive Internal Medicine Work Phone: Comment on above: PATIENT WAS FASTINGP ERFORMED BY: MELYSSA Gerrynhi StoddardWvyjpn0081 [address] RoadDublin [place] [id number] Bilirubin Ql (U) Negative Normal Comprehe nsive Internal Medicine; [facility] Work Phone: Comment on above: PATIENT WAS FASTINGP ERFORMED BY: MELYSSA Gerrynhi StoddardLidota5361 [address] RoadDublin [place] [id number] Color (U) Yellow Normal [facility] Work Phone: Comment on above: PATIENT WAS FASTINGP ERFORMED BY: MELYSSA LabHaleynhi StoddardWbhfar1903 [address] RoadDublin [place] [id number] Glucose Ql (U) Negative Normal Comprehens vicenta Internal Medicine Work Phone: Comment on above: PATIENT WAS FASTINGP ERFORMED BY: MELYSSA LabSimeon StoddardAkvoaa1023 [address] RoadDublin [place] [id number] Glucose Ql (U) Negative Normal Comprehens vicenta Internal Medicine; [facility] Work Phone: Comment on above: PATIENT WAS FASTINGP ERFORMED BY: MELYSSA Breaux6370 [address] [place] [id number] Hemoglobin Ql (U) Negative Normal Compreh ensive Internal Medicine Work Phone: Comment on above: PATIENT WAS FASTINGP ERFORMED BY: MELYSSA Breaux6370 [address] [place] [id number] Hemoglobin Ql (U) Negative Normal Compreh ensive Internal Medicine; [facility] Work Phone: Comment on above: PATIENT WAS FASTINGP ERFORMED BY: MELYSSA Breaux6370 [address] [place] [id number] Ketones Ql (U) Negative Normal Comprehens vicenta Internal Medicine Work Phone: Comment on above: PATIENT WAS FASTINGP ERFORMED BY: MELYSSA Breaux6370 [address]Duin [place] [id number] Ketones Ql (U) Negative Normal Comprehens vicenta Internal Medicine; [facility] Work Phone: Comment on above: PATIENT WAS FASTINGP ERFORMED BY: MELYSSA Breaux6370 [address] [facility] Hospitalbl[facility] [place] [id number] Leukocyte esterase Test strip Ql (U) 1+ Abnormal [facility] Work Phone: Comment on above: PATIENT WAS FASTINGP ERFORMED BY: MELYSSA Breaux6370 [facility]in [place] [id number] Microscopic observation LM Nom (Urine sed) See below: Normal [facility] Work Phone: Comment on above: Microscopic was maxine cated and was performed. PATIENT WAS FASTINGP ERFORMED BY: MELYSSA Stoddardlin6370 [address] RoadDublin [place] [id number] Nitrite Ql (U) Negative Normal Comprehens vicenta Internal Medicine Work Phone: Comment on above: PATIENT WAS FASTINGP ERFORMED BY: MELYSSA Stoddardlin6370 [address] RoadDublin [place] [id number] Nitrite Ql (U) Negative Normal Comprehens vicenta Internal Medicine; [facility] Work Phone: Comment on above: PATIENT WAS FASTINGP ERFORMED BY: MELYSSA Gerrynhi Kccykx8442 [facility] [id number] pH (U) 6.0 [pH] Normal 5.0-7.5 [facility] Work Phone: Comment on above: PATIENT WAS FASTINGP ERFORMED BY: MELYSSA LabHaley Jjcpml0133 [facility] [id number] Protein Ql (U) Negative Normal Comprehens [facility]enta Internal Medicine Work Phone: Comment on above: PATIENT WAS FASTINGP ERFORMED BY: MELYSSA LabSimeon StoddardTedkmv2097 [facility] [id number] Protein Ql (U) Negative Normal Comprehens vicenta Internal Medicine; [facility] Work Phone: Comment on above: PATIENT WAS FASTINGP ERFORMED BY: MELYSSA Garrett Nqezgt2221 [facility] [id number] Specific gravity (U) [Rel density] 1.018 1 Normal 1.005-1.030 [facility] Work Phone: Comment on above: PATIENT WAS FASTINGP ERFORMED BY: MELYSSA JohnHaley Vkwsbt6088 [facility] [id number] Urobilinogen (U) [Mass/Vol] 0.2 mg/dL Normal 0.2-1.0 [facility]; [facility] Work Phone: Comment on above: PATIENT WAS FASTINGP ERFORMED BY: MELYSSA [facility] Jyomfx0034 [facility] [id number] Urobilinogen Test strip (U) [Mass/Vol] 0.2 mg/dL Normal 0.2-1.0 [facility]eren[facility] Internal Medicine Work Phone: Comment on above: PATIENT WAS FASTINGP ERFORMED BY: MELYSSA LabHaley Fmxbei4735 [facility] [id number] Blood Glucose , Office ([phone])on 10-16-2020 Glucose Glucometer (BldC) [Moles/Vol] 78 1 Normal [facility] Work Phone: HgA1C , Office ([phone])on HbA1c (Bld) [Mass fraction] 5.4 % Normal 4.6 - 7.1 [facility] Work Phone: CALCIFEDIOL ([id number])Ordered B y: Supplier Development Manager on 12-15-2018 25-Hydroxyvitamin D2+25-Hydroxyvitamin D3 mass conc 16.2 ng/mL Abnormal 30.0-100.0 [facility] Work Phone: Comment on above: Vitamin D deficiency has been defined by the [place] ofMedicine and an Endocrine Society practice guideline as alevel of serum 25-OH vitamin D less than 20 ng/mL (1,2).The Endocrine Society went on to further define vitamin Dinsufficiency as a level between 21 and 29 ng/mL (2).1. IOM ([place] of Medicine). 2010. Dietary reference intakes for calcium and D. [place]: The National Academies Press.2. Janelle MF, Meng ARAIZA, Tracy ALMANZAR, et al. Evaluation, treatment, and prevention of vitamin D deficiency: an Endocrine Society clinical practice guideline. JCEM. 2010; 96(7):1911-30. PATIENT NOT FASTINGP ERFORMED BY: LabCoVirtua BerlinKeuaxc4497 [facility] [id number] Urinalysis, CompleteOrdered By: Supplier Development Manager on 11-15-2018 Protein mass conc (U) 100 mg/dL Abnormal Com prehensive Internal Medicine Work Phone: Comment on above: Order Date: 11/15/18 COLOR OF URINE MAY AFFECT DIPSTICK RESULTS.How was Urine Obtained? CLEAN [facility] Cnicbaxsnc8556 INDY Avalos, [id number] RBC #/vol (U) > 100 SEEN Normal 0-5 Comprehensi ve Internal Medicine Work Phone: Comment on above: Microscopic field is filled. Other elements may beobscured. Order Date: 11/15/18 COLOR OF URINE MAY AFFECT DIPSTICK RESULTS.How was Urine Obtained? [facility] Luhjwybhiw3680 INDY [place], [address] Urinalysis complete panel - Urine Normal Normal [facility] Work Phone: Comment on above: Order Date: 11/15/18 COLOR OF URINE MAY AFFECT DIPSTICK RESULTS.How was Urine Obtained? [facility] Uyiaklvcyb7656 [place], [address] Urinalysis complete panel - Urine Cloudy Normal [facility] Work Phone: Comment on above: Order Date: 11/15/18 COLOR OF URINE MAY AFFECT DIPSTICK RESULTS.How was Urine Obtained? [facility] Htxvblyyiy7642 [place], [address] Urinalysis complete panel - Urine Red Normal [facility] Work Phone: Comment on above: Order Date: 11/15/18 COLOR OF URINE MAY AFFECT DIPSTICK RESULTS.How was Urine Obtained? [facility] Rncnvicedt2495 [place], [address] Urinalysis complete panel - Urine 0 SEEN Normal [facility] Work Phone: Comment on above: Order Date: 11/15/18 COLOR OF URINE MAY AFFECT DIPSTICK RESULTS.How was Urine Obtained? [facility] Wjuctjfonj8577 [place], [address] Urinalysis complete panel - Urine 500 /ul Abnormal [facility] Work Phone: Comment on above: Order Date: 11/15/18 COLOR OF URINE MAY AFFECT DIPSTICK RESULTS.How was Urine Obtained? [facility] Tvmlbukyih5358 [place], [address] Urinalysis complete panel - Urine 250 /ul Abnormal [facility] Work Phone: Comment on above: Order Date: 11/15/18 COLOR OF URINE MAY AFFECT DIPSTICK RESULTS.How was Urine Obtained? [facility] Lpnjrycmup0411 [place] [place], 100851 Urinalysis complete panel - Urine Negative Normal [facility] Work Phone: Comment on above: Order Date: 11/15/18 COLOR OF URINE MAY AFFECT DIPSTICK RESULTS.How was Urine Obtained? [facility] Xfsrmubyhe6622 [place] [place], [id number] Urinalysis complete panel - Urine 6.5 1 Normal 5.0 - 8.0 [facility] Work Phone: Comment on above: Order Date: 11/15/18 COLOR OF URINE MAY AFFECT DIPSTICK RESULTS.How was Urine Obtained? [facility] Tysmpkoghs2910 [address] [place], [id number] Urinalysis complete panel - Urine 1.015 1 Normal 1.002-1.030 [facility] Work Phone: Comment on above: Order Date: 11/15/18 COLOR OF URINE MAY AFFECT DIPSTICK RESULTS.How was Urine Obtained? [facility] Mwiktwksux7138 [address]. [place], [place], [address]65771 Urinalysis complete panel - Urine 5 mg/dL Abnormal [facility] Work Phone: Comment on above: Order Date: 11/15/18 COLOR OF URINE MAY AFFECT DIPSTICK RESULTS.How was Urine Obtained? [facility] Uepmzvimxh0593 [address]. [place], [place], [id number] Albumin/Creatinine Ratio,Uri neOrdered By: Supplier Development Manager on 08-24-2018 Albumin DL <= 20 mg/L mass conc (U) 3.3 ug/mL Normal [facility] Work Phone: Comment on above: PATIENT WAS FASTINGP ERFORMED BY: [facility] Gznpsf7219 [facility] [id number] Albumin/Creatinine mass ratio (U) 6.0 {mg/g_creat} Normal 0.0-30.0 [facility] Work Phone: Comment on above: Normal: 0.0 - 30.0 A lbuminuria: 31.0 - 300.0 Clinical albuminuria: >300.0 PATIENT WAS FASTINGP ERFORMED BY: Fun CityVirtua BerlinPlapzo4916 [facility] [id number] Creatinine mass conc (U) 54.6 mg/dL Normal [facility] Work Phone: Comment on above: PATIENT WAS FASTINGP ERFORMED BY: LabAspirus [facility]ween[facility] Hospital6370 [facility] [id number] Blood Glucose , Office (8296 2)Ordered By: Barbi Clements on 08-24-2018 Glucose Glucometer molar conc (BldC) 120 1 Normal [facility] Work Phone: CBC W/AUTO DIFF WBC ([id number])O rdered By: Supplier Development Manager on 08-24-2018 Basophils #/vol (Bld) 0.0 {x10E3/uL} Normal 0.0-0.2 [facility] Work Phone: Comment on above: PATIENT WAS FASTINGP ERFORMED BY: Fun CityVirtua BerlinDwisyp9027 [facility] [id number] Basophils (Bld) [#/Vol] 0.0 10*3/uL Normal 0.0-0.2 [facility]; [facility] Work Phone: Comment on above: PATIENT WAS FASTINGP ERFORMED BY: Fun CityVirtua BerlinStbcut2589 [facility] [id number] Basophils Auto #/vol (Bld) 0.0 {x10E3/uL} Normal 0.0-0.2 [facility] Work Phone: Basophils/100 WBC (Bld) 0 % Normal [facility] Work Phone: Comment on above: PATIENT WAS FASTINGP ERFORMED BY: [facility]6370 [facility] [id number] Basophils/100 WBC Auto (Bld) 0 % Normal [facility] Work Phone: Eosinophils #/vol (Bld) 0.2 {x10E3/uL} Normal 0.0-0.4 [facility] Work Phone: Comment on above: PATIENT WAS FASTINGP ERFORMED BY: MELYSSA LabConhi Lbcifo4080 [facility] [id number] Eosinophils (Bld) [#/Vol] 0.2 10*3/uL Normal 0.0-0.4 [facility]; [facility] Work Phone: Comment on above: PATIENT WAS FASTINGP ERFORMED BY: MELYSSA LabHaley Nmxubj1783 [facility] [id number] Eosinophils Auto #/vol (Bld) 0.2 {x10E3/uL} Normal 0.0-0.4 [facility] Work Phone: Eosinophils/100 WBC (Bld) 3 % Normal [facility] Work Phone: Comment on above: PATIENT WAS FASTINGP ERFORMED BY: MELYSSA LabSimeon StoddardEabzgs0871 [facility] [id number] Eosinophils/100 WBC Auto (Bld) 3 % Normal [facility] Work Phone: Erythrocyte distribution width Auto Ratio (RBC) 13.5 % Normal 12.3-15.4 [facility] Work Phone: Erythrocyte distribution width Ratio (RBC) 13.5 % Normal 12.3-15.4 [facility] Work Phone: Comment on above: PATIENT WAS FASTINGP ERFORMED BY: MELYSSA LabSimeon StoddardUgovrl7786 [facility] [id number] Hematocrit Auto Volume Fraction (Bld) 44.7 % Normal 34.0-46.6 [facility] Work Phone: Hematocrit Volume Fraction (Bld) 44.7 % Normal 34.0-46.6 [facility] Work Phone: Comment on above: PATIENT WAS FASTINGP ERFORMED BY: MELYSSA LabCo Foibdn3211 [facility] [id number] Hemoglobin mass conc (Bld) 14.9 g/dL Normal 11.1-15.9 [facility] Work Phone: Comment on above: PATIENT WAS FASTINGP ERFORMED BY: MELYSSA LabCoMichelle Ville 3793170 [facility] [id number] Immature granulocytes #/vol (Bld) 0.0 {x10E3/uL} Normal 0.0-0.1 [facility] Work Phone: Comment on above: PATIENT WAS FASTINGP ERFORMED BY: [facility]6370 [facility] [id number] Immature granulocytes (Bld) [#/Vol] 0.0 10*3/uL Normal 0.0-0.1 [facility]; [facility] Work Phone: Comment on above: PATIENT WAS FASTINGP ERFORMED BY: [place] 7645570 [facility] [id number] Immature granulocytes/100 WBC (Bld) 0 % Normal [facility] Work Phone: Comment on above: PATIENT WAS FASTINGP ERFORMED BY: [place] 7645570 [facility] [id number] Lymphocytes #/vol (Bld) 2.8 {x10E3/uL} Normal 0.7-3.1 [facility] Work Phone: Comment on above: PATIENT WAS FASTINGP ERFORMED BY: [place] 7645570 [facility] [id number] Lymphocytes (Bld) [#/Vol] 2.8 10*3/uL Normal 0.7-3.1 [facility]; [facility] Work Phone: Comment on above: PATIENT WAS FASTINGP ERFORMED BY: [place] 7645570 [facility] [id number] Lymphocytes Auto #/vol (Bld) 2.8 {x10E3/uL} Normal 0.7-3.1 [facility] Work Phone: Lymphocytes/100 WBC (Bld) 36 % Normal [facility] Work Phone: Comment on above: PATIENT WAS FASTINGP ERFORMED BY: [place] 7645570 [facility] [id number] Lymphocytes/100 WBC Auto (Bld) 36 % Normal [facility] Work Phone: MCH Auto Entitic mass (RBC) 31.6 pg Normal 26.6-33.0 [facility] Work Phone: MCH Entitic mass (RBC) 31.6 pg Normal 26.6-33.0 [facility] Internal Medicine Work Phone: Comment on above: PATIENT WAS FASTINGP ERFORMED BY: [place] 7645570 [facility] [id number] MCHC Auto mass conc (RBC) 33.3 g/dL Normal 31.5-35.7 [facility] Work Phone: MCHC mass conc (RBC) 33.3 g/dL Normal 31.5-35.7 [facility] Internal Medicine Work Phone: Comment on above: PATIENT WAS FASTINGP ERFORMED BY: [address] [id number] MCV Auto Entitic volume (RBC) 95 fL Normal 79-97 [facility] Work Phone: MCV Entitic volume (RBC) 95 fL Normal 79-97 [facility] Work Phone: Comment on above: PATIENT WAS FASTINGP ERFORMED BY: [address] [id number] Monocytes #/vol (Bld) 0.4 {x10E3/uL} Normal 0.1-0.9 [facility] Work Phone: Comment on above: PATIENT WAS FASTINGP ERFORMED BY: [place] 7645570 [facility] [id number] Monocytes (Bld) [#/Vol] 0.4 10*3/uL Normal 0.1-0.9 [facility]; [facility] Work Phone: Comment on above: PATIENT WAS FASTINGP ERFORMED BY: [place] 7645570 [facility] [id number] Monocytes Auto #/vol (Bld) 0.4 {x10E3/uL} Normal 0.1-0.9 [facility] Work Phone: Monocytes/100 WBC (Bld) 6 % Normal [facility] Work Phone: Comment on above: PATIENT WAS FASTINGP ERFORMED BY: MELYSSA LabSimeon Breaux6370 [facility] [id number] Monocytes/100 WBC Auto (Bld) 6 % Normal [facility] Work Phone: Neutrophils #/vol (Bld) 4.2 {x10E3/uL} Normal 1.4-7.0 [facility] Work Phone: Comment on above: PATIENT WAS FASTINGP ERFORMED BY: MELYSSA LabSimeon Breaux6370 [facility] [id number] Neutrophils (Bld) [#/Vol] 4.2 10*3/uL Normal 1.4-7.0 [facility]; [facility] Work Phone: Comment on above: PATIENT WAS FASTINGP ERFORMED BY: MELYSSA Breaux6370 [facility] [id number] Neutrophils Auto #/vol (Bld) 4.2 {x10E3/uL} Normal 1.4-7.0 [facility] Work Phone: Neutrophils/100 WBC (Bld) 55 % Normal [facility] Work Phone: Comment on above: PATIENT WAS FASTINGP ERFORMED BY: MELYSSA Breaux6370 [facility] [id number] Neutrophils/100 WBC Auto (Bld) 55 % Normal [facility] Work Phone: Platelets #/vol (Bld) 274 {x10E3/uL} Normal 150-379 [facility] Work Phone: Comment on above: PATIENT WAS FASTINGP ERFORMED BY: MELYSSA LabSimeon StoddardWshdgl3952 [facility] [id number] Platelets (Bld) [#/Vol] 274 10*3/uL Normal 150-379 [facility]; [facility] Work Phone: Comment on above: PATIENT WAS FASTINGP ERFORMED BY: MELYSSA LabAspirus Keweenaw Hospital6370 [facility] [id number] Platelets Auto #/vol (Bld) 274 {x10E3/uL} Normal 150-379 [facility] Work Phone: RBC #/vol (Bld) 4.72 {x10E6/uL} Normal 3.77-5.28 [facility] Internal Medicine Work Phone: Comment on above: PATIENT WAS FASTINGP ERFORMED BY: LabCo Oopzpp8412 [facility] [id number] RBC (Bld) [#/Vol] 4.72 10*6/uL Normal 3.77-5.28 [facility]; [facility] Work Phone: Comment on above: PATIENT WAS FASTINGP ERFORMED BY: LabAsp[facility] Hospital6370 [facility] [id number] RBC Auto #/vol (Bld) 4.72 {x10E6/uL} Normal 3.77-5.28 [facility] Work Phone: WBC #/vol (Bld) 7.6 {x10E3/uL} Normal 3.4-10.8 [facility] Internal Medicine Work Phone: Comment on above: PATIENT WAS FASTINGP ERFORMED BY: LabAsp[facility] Hospital6370 [facility] [id number] WBC (Bld) [#/Vol] 7.6 10*3/uL Normal 3.4-10.8 [facility]; [facility] Work Phone: Comment on above: PATIENT WAS FASTINGP ERFORMED BY: [facility] Mnzuqz6254 [facility] [id number] WBC Auto #/vol (Bld) 7.6 {x10E3/uL} Normal 3.4-10.8 [facility] Work Phone: HgA1C , Office ([id number])Bing roque By: Barbi Clements on 08-24-2018 Hemoglobin A1c/Hemoglobin.total mass fraction (Bld) 5.8 % Normal 4.6 - 7.1 Comprehensiv e Internal Medicine Work Phone: LIPID PANEL ([id number])Ordered B y: Supplier Development Manager on 08-24-2018 Cholesterol in HDL mass conc 63 mg/dL Normal [facility] Work Phone: Comment on above: PATIENT WAS FASTINGP ERFORMED BY: MELYSSA [facility] Jkulqr0298 [address] RoadDublin [place] [id number] Cholesterol in LDL mass conc 162 mg/dL Abnormal 0-99 [facility] Work Phone: Comment on above: PATIENT WAS FASTINGP ERFORMED BY: MELYSSA [facility] Eipkjm2223 [address] RoadDublin [place] [id number] Cholesterol in LDL/Cholesterol in HDL mass ratio 2.6 {ratio} Normal 0.0-3.2 [facility] Work Phone: Comment on above: LDL/HDL Ratio Men Wo men 1/2 Avg.Risk 1.0 1.5 Avg.Risk 3.6 3.2 2X Avg.Risk 6.2 5.0 3X Avg.Risk 8.0 6.1 PATIENT WAS FASTINGP ERFORMED BY: MELYSSA [facility] Xkhoit4187 [address] RoadDublin [place] [id number] Cholesterol in VLDL mass conc 21 mg/dL Normal 5-40 [facility] Work Phone: Comment on above: PATIENT WAS FASTINGP ERFORMED BY: MELYSSA [facility] Skikpc5234 [address] RoadDublin [place] [id number] Cholesterol mass conc 246 mg/dL Abnormal 100-199 Com prehensive Internal Medicine Work Phone: Comment on above: PATIENT WAS FASTINGP ERFORMED BY: MELYSSA [facility] Ousibk0839 [address] RoadDublin [place] [id number] Triglyceride mass conc 103 mg/dL Normal 0-149 [facility] hospitalehens[facility] Work Phone: Comment on above: PATIENT WAS FASTINGP ERFORMED BY: MELYSSA [facility] Zlhleo2631 [address] RoadDublin [place] [id number] METABOLIC PANEL, COMPREHENSI VE ([id number])Ordered By: Supplier Development Manager on 08-24-2018 Albumin mass conc 4.3 g/dL Normal 3.6-4.8 [facility] Internal Medicine Work Phone: Comment on above: PATIENT WAS FASTINGP ERFORMED BY: MELYSSA Breaux6[address] [place] [id number] Albumin/Globulin mass ratio 1.5 {ratio} Normal 1.2-2.2 [facility] Internal Medicine Work Phone: Comment on above: PATIENT WAS FASTINGP ERFORMED BY: MELYSSA Breaux6[address] [place] [id number] ALP [Catalytic activity/Vol] 98 U/L Normal 39-117 [facility]; [facility] Internal Medicine Work Phone: Comment on above: PATIENT WAS FASTINGP ERFORMED BY: MELYSSA Breaux6[address] [place] [id number] ALP enzyme act/vol 98 [iU]/L Normal 39-117 [facility] Internal Medicine Work Phone: Comment on above: PATIENT WAS FASTINGP ERFORMED BY: MELYSSA Stoddardlin6370 [address]Dublin [place] [id number] ALT [Catalytic activity/Vol] 23 U/L Normal 0-32 [facility]; [facility] Internal Medicine Work Phone: Comment on above: PATIENT WAS FASTINGP ERFORMED BY: MELYSSA Stoddardlin6370 [address] RoadDublin [place] [id number] ALT enzyme act/vol 23 [iU]/L Normal 0-32 [facility] Internal Medicine Work Phone: Comment on above: PATIENT WAS FASTINGP ERFORMED BY: MELYSSA LabHaley Biaedm2842 [address] RoadDublin [place] [id number] AST [Catalytic activity/Vol] 24 U/L Normal 0-40 [facility]; [facility] Internal Medicine Work Phone: Comment on above: PATIENT WAS FASTINGP ERFORMED BY: MELYSSA LabHaley Okkief1004 [address] RoadDublin [place] [id number] AST enzyme act/vol 24 [iU]/L Normal 0-40 [facility] Internal Medicine Work Phone: Comment on above: PATIENT WAS FASTINGP ERFORMED BY: MELYSSA [facility] Ujnruk3462 [address] RoadDublin [place] [id number] Bilirubin mass conc 0.4 mg/dL Normal 0.0-1.2 Compr ensive Internal Medicine Work Phone: Comment on above: PATIENT WAS FASTINGP ERFORMED BY: MELYSSA [facility] Njqwpu5798 [address] RoadDublin [place] [id number] Calcium mass conc 10.2 mg/dL Normal 8.7-10.3 Compreh ensive Internal Medicine Work Phone: Comment on above: PATIENT WAS FASTINGP ERFORMED BY: CB [facility] Bwntjx2384 [address] RoadDublin [place] [id number] Chloride molar conc 99 mmol/L Normal 96-106 [facility] Internal Medicine Work Phone: Comment on above: PATIENT WAS FASTINGP ERFORMED BY: MELYSSA [facility] Zvnocb9196 [address] RoadDuin [place] [id number] CO2 molar conc 25 mmol/L Normal 20-29 Comprehens vicenta Internal Medicine Work Phone: Comment on above: PATIENT WAS FASTINGP ERFORMED BY: MELYSSA [facility] Cxqvtt0169 [address] RoadDublin [place] [id number] Creatinine mass conc 0.88 mg/dL Normal 0.57-1.00 [facility] Centerensive Internal [facility] Work Phone: Comment on above: PATIENT WAS FASTINGP ERFORMED BY: MELYSSA [facility] Amwsas9947 [address] RoadUnc Health Rexin [place] [id number] GFR/1.73 sq M predicted among blacks CKD-EPI vol rate/area (S/P/Bld) 80 mL/min/1.73 Normal [facility] Work Phone: Comment on above: PATIENT WAS FASTINGP ERFORMED BY: CB [facility] Vdhltb2947 [address] RoadDublin [place] [id number] GFR/1.73 sq M predicted among non-blacks CKD-EPI vol rate/area (S/P/Bld) 69 mL/min/1.73 Normal Comprehensiv e Internal Medicine Work Phone: Comment on above: PATIENT WAS FASTINGP ERFORMED BY: MELYSSA LabConhi StoddardXetfzq8059 [address] RoadDublin [place] [id number] Globulin Calculated mass conc (S) 2.8 g/dL Normal 1.5-4.5 [facility] Work Phone: Globulin mass conc (S) 2.8 g/dL Normal 1.5-4.5 Co mprehensive Internal Medicine Work Phone: Comment on above: PATIENT WAS FASTINGP ERFORMED BY: MELYSSA LabThree [facility] Fvulyv0378 [address] Roadblin [place] [id number] Glucose mass conc 113 mg/dL Abnormal 65-99 Compreh ensive Internal Medicine Work Phone: Comment on above: PATIENT WAS FASTINGP ERFORMED BY: MELYSSA LabSimeon StoddardGwonsh7085 [address] Roadblin [place] [id number] Potassium molar conc 4.7 mmol/L Normal 3.5-5.2 Comp rehensive Internal Medicine Work Phone: Comment on above: PATIENT WAS FASTINGP ERFORMED BY: MELYSSA Stoddardlin6370 [address] Roadblin [place] [id number] Protein mass conc 7.1 g/dL Normal 6.0-8.5 Compreh ensive Internal Medicine Work Phone: Comment on above: PATIENT WAS FASTINGP ERFORMED BY: MELYSSA Stoddardlin6370 [address] Roadblin [place] [id number] Sodium molar conc 140 mmol/L Normal 134-144 Compreh ensive Internal Medicine Work Phone: Comment on above: PATIENT WAS FASTINGP ERFORMED BY: MELYSSA LabThree [facility] Zflczm5699 [address] RoadDublin [place] [id number] Urea nitrogen mass conc 21 mg/dL Normal 8-27 [facility] Work Phone: Comment on above: PATIENT WAS FASTINGP ERFORMED BY: MELYSSA [facility] Swhaef1852 [address] RoadDublin [place] [id number] Urea nitrogen/Creatinine mass ratio 24 mg/mg Normal 12-28 [facility] Work Phone: Comment on above: PATIENT WAS FASTINGP ERFORMED BY: MELYSSA [facility] Pierok8342 [facility]in [place] [id number] Microscopic ExaminationOrder ed By: Supplier Development Manager on 08-24-2018 Bacteria LM.HPF #/area (Urine sed) Few Normal [facility] Work Phone: Comment on above: PATIENT WAS FASTINGP ERFORMED BY: MELYSSA [facility] Dokgmv9516 [facility] [id number] Epithelial cells LM.HPF #/area (Urine sed) 0-10 Normal 0 - 10 [facility] Work Phone: Comment on above: PATIENT WAS FASTINGP ERFORMED BY: MELYSSA LabCo Rvkyxp0725 [facility] [id number] Mucus LM Ql (Urine sed) Present Normal [facility] Work Phone: Mucus Ql (Urine sed) Present Normal Comp rehensive Internal Medicine Work Phone: Comment on above: PATIENT WAS FASTINGP ERFORMED BY: MELYSSA LabCo Ngixri4408 [facility] [id number] RBC LM.HPF #/area (Urine sed) 0-2 Normal 0 - 2 [facility] Work Phone: Comment on above: PATIENT WAS FASTINGP ERFORMED BY: MELYSSA Lab[facility] Zhwmzg8497 [facility] [id number] WBC LM.HPF #/area (Urine sed) 0-5 Normal 0 - 5 [facility] Work Phone: Comment on above: PATIENT WAS FASTINGP ERFORMED BY: LabCo Avcdkv5968 [facility] [id number] TSH ([id number])Ordered By: Syste m Pasta Maker on 08-24-2018 Thyrotropin Qn 2.630 {uIU/mL} Normal 0.450-4.500 Compr ehensive Internal Medicine Work Phone: Comment on above: PATIENT WAS FASTINGP ERFORMED BY: MELYSSA [facility] Epnpfg3081 [facility]in [place] [id number] URINE KEILA CULTURE-IDENTIFICA [place] ([id number])Ordered By: Supplier Development Manager on 08-24-2018 Bacteria identified Cx Nom (U) Final report Abnormal [facility] Work Phone: Comment on above: PERFORMED BY: [employer] [place] [id number] Information: SRC:KENDALL Bacteria identified Cx Nom (U) Escherichia coli Abnormal [facility] Work Phone: Comment on above: Greater than 100,000 colony forming units per mLCefazolin <=4 ug/mLCefazolin with an LIBRADO <=16 predicts susceptibility to the oral agentscefaclor, cefdinir, cefpodoxime, cefprozil, cefuroxime, cephalexin,and loracarbef when used for therapy of uncomplicated urinary tractinfections due to E. coli, Klebsiella pneumoniae, and Proteusmirabilis. PERFORMED BY: [employer] ServicesBluegrass Community Hospital [id number] Information: SRC:KENDALL Other Antibiotic [facility] prehensive Internal Medicine Work Phone: Comment on above: S = Susceptible; I = Intermediate; R = Resistant P = Positive; N = Negative MICS are expressed in micrograms per mL Antibiotic RSLT#1 RSLT#2 RSLT#3 RSLT#4Amoxicillin/Clavulanic Acid SAmpicillin RCefepime SCeftriaxone SCefuroxime SCiprofloxacin SErtapenem SGentamicin RImipenem SLevofloxacin SMeropenem SNitrofurantoin SPiperacillin/Tazobactam STetracycline RTobramycin STrimethoprim/Sulfa R PERFORMED BY: BorrowersFirstFormerly [facility], [facility] [id number] Information: SRC:K[place]ALL Urinalysis, CompleteOrdered By: Supplier Development Manager on 08-24-2018 Appearance Nom (U) Clear Normal Compre hensive Internal Medicine Work Phone: Comment on above: PATIENT WAS FASTINGP ERFORMED BY: [employer] Orthopedic TechnologiesFormerly [facility], [facility] [id number] Color Nom (U) Yellow Normal Comprehensi ve Internal Medicine Work Phone: Comment on above: PATIENT WAS FASTINGP ERFORMED BY: CB [facility] Mnedtq7304 [address] RoadDublin [place] [id number] Glucose Ql (U) Negative Normal Comprehens vicenta Internal Medicine Work Phone: Comment on above: PATIENT WAS FASTINGP ERFORMED BY: MELYSSA [facility] Cvybzi4936 [address] RoadDublin [place] [id number] Hemoglobin Ql (U) Negative Normal Compreh ensive Internal Medicine Work Phone: Comment on above: PATIENT WAS FASTINGP ERFORMED BY: MELYSSA LabThree [facility] Scxogn2385 [address] RoadDublin [place] [id number] Hemoglobin Test strip Ql (U) Negative Normal [facility] Work Phone: Ketones Ql (U) Negative Normal Comprehens vicenta Internal Medicine Work Phone: Comment on above: PATIENT WAS FASTINGP ERFORMED BY: MELYSSA LabSimeon StoddardZbgxbw5273 [address] RoadDublin [place] [id number] Leukocyte esterase Test strip Ql (U) 1+ Abnormal [facility] Work Phone: Comment on above: PATIENT WAS FASTINGP ERFORMED BY: MELYSSA LabThree [facility] Crtfaa1618 [address] RoadDublin [place] [id number] Microscopic observation LM Nom (Urine sed) See below: Normal [facility] Work Phone: Comment on above: Microscopic was maxine cated and was performed. PATIENT WAS FASTINGP ERFORMED BY: MELYSSA LabThree [facility] Ygkgiz7214 [address] RoadDublin [place] [id number] Nitrite Ql (U) Negative Normal Comprehens vicenta Internal Medicine Work Phone: Comment on above: PATIENT WAS FASTINGP ERFORMED BY: MELYSSA LabCo Cvznwh6269 [address] RoadDublin [place] [id number] Nitrite Test strip Ql (U) Negative Normal [facility] Work Phone: pH (U) 7.0 [pH] Normal 5.0-7.5 [facility] Work Phone: Comment on above: PATIENT WAS FASTINGP ERFORMED BY: MELYSSA Lab[facility] Kfkixg7167 [address] RoadDublin [place] [id number] pH Test strip (U) 7.0 [pH] Normal 5.0-7.5 Compreh ensive Internal Medicine Work Phone: Protein Ql (U) Negative Normal Comprehens vicenta Internal Medicine Work Phone: Comment on above: PATIENT WAS FASTINGP ERFORMED BY: MELYSSA [employer]6370 [facility] InstituteFormer[facility], [facility] [id number] Specific gravity Relative Density (U) 1.016 1 Normal 1.005-1.030 Comprehensi ve Internal Medicine Work Phone: Comment on above: PATIENT WAS FASTINGP ERFORMED BY: Vsevcredit.ru6370 [facility] Institutein [place] [id number] Urobilinogen Test strip mass conc (U) 0.2 mg/dL Normal 0.2-1.0 Comprehensiv e Internal Medicine Work Phone: Comment on above: PATIENT WAS FASTINGP ERFORMED BY: Vsevcredit.ru6370 [facility] InstituteFormer[facility], [facility] [id number] Urinalysis, Office ([id number])Or dered By: Barbi Clements on 08-24-2018 Bilirubin Ql (U) Negative Normal Comprehe nsive Internal Medicine Work Phone: Comment on above: PATIENT WAS FASTINGP ERFORMED BY: [employer] Scjuzr6312 [facility] Institutein [place] [id number] Bilirubin Ql (U) Negative Normal Comprehe nsive Internal Medicine; [facility] Work Phone: Glucose Test strip (U) [Mass/Vol] Negative Normal [facility]; [facility] Work Phone: Glucose Test strip mass conc (U) Negative Normal [facility] Work Phone: Hemoglobin Ql (U) non-hemolyzed trace Normal [facility] Work Phone: Hemoglobin Test strip Ql (U) non-hemolyzed trace Normal Comprehensiv e Internal Medicine Work Phone: Ketones Ql (U) Negative Normal Comprehens [facility]enta Internal Medicine; [facility] Work Phone: Leukocyte esterase Test strip Ql (U) Trace Normal [facility] Work Phone: Nitrite Ql (U) Negative Normal Comprehens [facility]enta [facility]; [facility] Work Phone: pH (U) 7 [pH] Normal [facility] Work Phone: pH Test strip (U) 7 [pH] Normal Compreh ensive Internal Medicine Work Phone: Protein Ql (U) Negative Normal Comprehens vicenta Internal Medicine; [facility] Work Phone: Protein Test strip Ql (U) Negative Normal [facility] Work Phone: Specific gravity Relative Density (U) 1.015 1 Normal Comprehensi ve Internal Medicine Work Phone: Urobilinogen mass/time (24H U) Normal Normal [facility] Work Phone: Vitamin [id number] By: Romana Sinclair on 08-24-2018 Cobalamin (Vitamin B12) mass conc 399 pg/mL Normal 232-1245 [facility] Work Phone: Comment on above: PATIENT WAS FASTINGP ERFORMED BY: LabCoVirtua BerlinLqfcls0936 [facility] [id number] Blood Glucose , Office ([phone])Ordered By: Barbi Clements on 05-05-2018 Glucose Glucometer molar conc (BldC) 111 1 Normal [facility] Work Phone: HgA1C , Office ([phone])Ordere d By: Barbi Clements on 05-05-2018 Hemoglobin A1c/Hemoglobin.total mass fraction (Bld) 7.7 % Abnormal 4.6 - 7.1 Comprehensiv e Internal Medicine Work Phone: Blood Glucose , Office ([phone])Ordered By: Yesy Ceja on 12-30-2017 Glucose Glucometer molar conc (BldC) 126 1 Normal [facility] Work Phone: Comment on above: pt is fasting HgA1C , Office ([id number])Ordere d By: Yesy Ceja on 12-30-2017 Hemoglobin A1c/Hemoglobin.total mass fraction (Bld) 5.5 % Normal 4.6 - 7.1 Comprehensiv e Internal Medicine Work Phone: URINE [place] CULTURE[place]IDENT[place] ([id number])Ordered By: Supplier Development Manager on 12-06-2017 Bacteria identified Cx Nom (U) Escherichia coli Abnormal [facility] Work Phone: Comment on above: Greater than 100,000 colony forming units per mL PATIENT NOT FASTINGP ERFORMED BY: [facility] Mhywww1037 [address] [id number] Information: SRC:KENDALL Bacteria identified Cx Nom (U) Final report Abnormal [facility] Work Phone: Comment on above: PATIENT NOT FASTINGP ERFORMED BY: [facility] Artltu[address] [id number] Information: SRC:KENDALL Other Antibiotic susc MIHEAD Normal Com prehensive Internal Medicine Work Phone: Comment on above: S = Susceptible; I = Intermediate; R = Resistant P = Positive; N = Negative MICS are expressed in micrograms per mL Antibiotic RSLT#1 RSLT#2 RSLT#3 RSLT#4Amoxicillin/Clavulanic Acid SAmpicillin RCefepime SCeftriaxone SCefuroxime ICephalothin ICiprofloxacin SErtapenem SGentamicin SImipenem SLevofloxacin SNitrofurantoin SPiperacillin STetracycline STobramycin STrimethoprim/Sulfa S PATIENT NOT FASTINGP ERFORMED BY: LabLinty Financerp Hdrqhg1894 [facility] [id number] Information: SRC:KENDALL Urinalysis, Office ([id number])Or dered By: Yesy Ceja on 12-03-2017 Bilirubin Ql (U) Negative Normal Comprehe nsive Internal Medicine Work Phone: Bilirubin Ql (U) Negative Normal Comprehe nsive Internal Medicine; [facility] Work Phone: Glucose Test strip (U) [Mass/Vol] Negative Normal [facility]; [facility] Work Phone: Glucose Test strip mass conc (U) Negative Normal [facility] Work Phone: Hemoglobin Ql (U) Hemolyzed Trace Normal Co mprehensive Internal Medicine Work Phone: Hemoglobin Test strip Ql (U) Hemolyzed Trace Normal [facility] Work Phone: Ketones Ql (U) Negative Normal Comprehens vicenta Internal Medicine Work Phone: Ketones Ql (U) Negative Normal Comprehens [facility]enta Internal Medicine; [facility] Work Phone: Leukocyte esterase Test strip Ql (U) Negative Normal [facility] Work Phone: Leukocyte esterase Test strip Ql (U) Negative Normal [facility]; [facility] Work Phone: Nitrite Ql (U) Negative Normal Comprehens [facility] Medicine Work Phone: Nitrite Ql (U) Negative Normal Comprehens [facility]; [facility] Work Phone: Nitrite Test strip Ql (U) Negative Normal [facility] Work Phone: pH (U) 5.0 [pH] Normal [facility] Work Phone: pH Test strip (U) 5.0 [pH] Normal Compreh ensive Internal Medicine Work Phone: Protein Ql (U) Negative Normal Comprehens [facility]enta Internal Medicine Work Phone: Protein Ql (U) Negative Normal Comprehens [facility]enta [facility]; [facility] Work Phone: Protein Test strip Ql (U) Negative Normal [facility] Work Phone: Specific gravity Relative Density (U) 1.015 1 Normal Comprehensi ve Internal Medicine Work Phone: Urobilinogen mass/time (24H U) 2 mg/dL Normal [facility] Work Phone: Blood Glucose , Office ([phone])Ordered By: Barbi Clements on 09-24-2017 Glucose Glucometer molar conc (BldC) 105 1 Normal [facility] Work Phone: HgA1C , Office ([phone])Ordere d By: Barbi Clements on 09-24-2017 Hemoglobin A1c/Hemoglobin.total mass fraction (Bld) 5.5 % Normal 4.6 - 7.1 Comprehensiv e Internal Medicine Work Phone: Blood Glucose , Office ([phone])Ordered By: Barbi Clements on 05-20-2017 Glucose Glucometer molar conc (BldC) 127 1 Normal [facility] Work Phone: CBC W/AUTO DIFF WBC ([id number])O rdered By: Supplier Development Manager on 05-20-2017 Basophils #/vol (Bld) 0.0 {x10E3/uL} Normal 0.0-0.2 [facility] Work Phone: Comment on above: PATIENT WAS FASTINGP ERFORMED BY: MELYSSA [employer]Linty [employer] Lrqmez1070 [facility] [id number] Basophils (Bld) [#/Vol] 0.0 10*3/uL Normal 0.0-0.2 [facility]; [facility] Work Phone: Comment on above: PATIENT WAS FASTINGP ERFORMED BY: MELYSSA [employer]Linty [employer] Ekvwjf8274 [facility] [id number] Basophils Auto #/vol (Bld) 0.0 {x10E3/uL} Normal 0.0-0.2 [facility] Work Phone: Basophils/100 WBC (Bld) 0 % Normal [facility] Work Phone: Comment on above: PATIENT WAS FASTINGP ERFORMED BY: MELYSSA [employer] Xnkiwu9974 [facility] [id number] Basophils/100 WBC Auto (Bld) 0 % Normal [facility] Work Phone: Eosinophils #/vol (Bld) 0.2 {x10E3/uL} Normal 0.0-0.4 [facility] Work Phone: Comment on above: PATIENT WAS FASTINGP ERFORMED BY: [employer] Dvesgb9557 [facility] [id number] Eosinophils (Bld) [#/Vol] 0.2 10*3/uL Normal 0.0-0.4 [facility]; [facility] Work Phone: Comment on above: PATIENT WAS FASTINGP ERFORMED BY: [facility]6370 [facility] [id number] Eosinophils Auto #/vol (Bld) 0.2 {x10E3/uL} Normal 0.0-0.4 [facility] Work Phone: Eosinophils/100 WBC (Bld) 3 % Normal [facility] Work Phone: Comment on above: PATIENT WAS FASTINGP ERFORMED BY: [place] 7645570 [facility] [id number] Eosinophils/100 WBC Auto (Bld) 3 % Normal [facility] Work Phone: Erythrocyte distribution width Auto Ratio (RBC) 13.6 % Normal 12.3-15.4 [facility] Work Phone: Erythrocyte distribution width Ratio (RBC) 13.6 % Normal 12.3-15.4 [facility] Work Phone: Comment on above: PATIENT WAS FASTINGP ERFORMED BY: [place] 7645570 [facility] [id number] Hematocrit Auto Volume Fraction (Bld) 45.6 % Normal 34.0-46.6 [facility] Work Phone: Hematocrit Volume Fraction (Bld) 45.6 % Normal 34.0-46.6 [facility] Work Phone: Comment on above: PATIENT WAS FASTINGP ERFORMED BY: [place] 7645570 [facility] [id number] Hemoglobin mass conc (Bld) 15.1 g/dL Normal 11.1-15.9 [facility] Work Phone: Comment on above: PATIENT WAS FASTINGP ERFORMED BY: [place] 7645570 [facility] [id number] Immature granulocytes #/vol (Bld) 0.0 {x10E3/uL} Normal 0.0-0.1 [facility] Work Phone: Comment on above: PATIENT WAS FASTINGP ERFORMED BY: [place] 7645570 [facility] [id number] Immature granulocytes (Bld) [#/Vol] 0.0 10*3/uL Normal 0.0-0.1 [facility]; [facility] Work Phone: Comment on above: PATIENT WAS FASTINGP ERFORMED BY: MELYSSA [facility]6370 [facility] [id number] Immature granulocytes/100 WBC (Bld) 0 % Normal [facility] Work Phone: Comment on above: PATIENT WAS FASTINGP ERFORMED BY: LabSean [place] 5984970 [facility] [id number] Lymphocytes #/vol (Bld) 2.6 {x10E3/uL} Normal 0.7-3.1 [facility] Work Phone: Comment on above: PATIENT WAS FASTINGP ERFORMED BY: [facility] Brhxcx[address] [id number] Lymphocytes (Bld) [#/Vol] 2.6 10*3/uL Normal 0.7-3.1 [facility]; [facility] Internal Medicine Work Phone: Comment on above: PATIENT WAS FASTINGP ERFORMED BY: [place] 7645570 [facility] [id number] Lymphocytes Auto #/vol (Bld) 2.6 {x10E3/uL} Normal 0.7-3.1 [facility] Work Phone: Lymphocytes/100 WBC (Bld) 37 % Normal [facility] Work Phone: Comment on above: PATIENT WAS FASTINGP ERFORMED BY: [place] 7645570 [facility] [id number] Lymphocytes/100 WBC Auto (Bld) 37 % Normal [facility] Work Phone: MCH Auto Entitic mass (RBC) 30.4 pg Normal 26.6-33.0 [facility] Work Phone: MCH Entitic mass (RBC) 30.4 pg Normal 26.6-33.0 [facility] Internal Medicine Work Phone: Comment on above: PATIENT WAS FASTINGP ERFORMED BY: [facility] Nturup5735 [facility] [id number] MCHC Auto mass conc (RBC) 33.1 g/dL Normal 31.5-35.7 [facility] Work Phone: MCHC mass conc (RBC) 33.1 g/dL Normal 31.5-35.7 Comp [facility] Internal Medicine Work Phone: Comment on above: PATIENT WAS FASTINGP ERFORMED BY: MELYSSA [facility] Jvppwt8236 [facility] [id number] MCV Auto Entitic volume (RBC) 92 fL Normal 79-97 [facility] Work Phone: MCV Entitic volume (RBC) 92 fL Normal 79-97 [facility] Work Phone: Comment on above: PATIENT WAS FASTINGP ERFORMED BY: MELYSSA [facility] Rygulj5264 [facility] [id number] Monocytes #/vol (Bld) 0.5 {x10E3/uL} Normal 0.1-0.9 [facility] Work Phone: Comment on above: PATIENT WAS FASTINGP ERFORMED BY: [facility]6370 [facility] [id number] Monocytes (Bld) [#/Vol] 0.5 10*3/uL Normal 0.1-0.9 [facility]; [facility] Work Phone: Comment on above: PATIENT WAS FASTINGP ERFORMED BY: [place] 7645570 [facility] [id number] Monocytes Auto #/vol (Bld) 0.5 {x10E3/uL} Normal 0.1-0.9 [facility] Work Phone: Monocytes/100 WBC (Bld) 7 % Normal [facility] Work Phone: Comment on above: PATIENT WAS FASTINGP ERFORMED BY: [place] 7645570 [facility] [id number] Monocytes/100 WBC Auto (Bld) 7 % Normal [facility] Work Phone: Neutrophils #/vol (Bld) 3.7 {x10E3/uL} Normal 1.4-7.0 [facility] Work Phone: Comment on above: PATIENT WAS FASTINGP ERFORMED BY: [facility] Esncog0116 [facility] [id number] Neutrophils (Bld) [#/Vol] 3.7 10*3/uL Normal 1.4-7.0 [facility]; [facility] Work Phone: Comment on above: PATIENT WAS FASTINGP ERFORMED BY: MELYSSA [facility] Rthhxh9107 [facility] [id number] Neutrophils Auto #/vol (Bld) 3.7 {x10E3/uL} Normal 1.4-7.0 [facility] Work Phone: Neutrophils/100 WBC (Bld) 53 % Normal [facility] Work Phone: Comment on above: PATIENT WAS FASTINGP ERFORMED BY: [facility]6370 [facility] [id number] Neutrophils/100 WBC Auto (Bld) 53 % Normal [facility] Work Phone: Platelets #/vol (Bld) 294 {x10E3/uL} Normal 150-379 [facility] Work Phone: Comment on above: PATIENT WAS FASTINGP ERFORMED BY: [facility]6370 [facility] [id number] Platelets (Bld) [#/Vol] 294 10*3/uL Normal 150-379 [facility]; [facility] Work Phone: Comment on above: PATIENT WAS FASTINGP ERFORMED BY: [facility] Rpbdpk4493 [facility] [id number] Platelets Auto #/vol (Bld) 294 {x10E3/uL} Normal 150-379 [facility] Work Phone: RBC #/vol (Bld) 4.96 {x10E6/uL} Normal 3.77-5.28 Comp rehensive Internal Medicine Work Phone: Comment on above: PATIENT WAS FASTINGP ERFORMED BY: MELYSSA Jm Breaux6370 [facility] [id number] RBC (Bld) [#/Vol] 4.96 10*6/uL Normal 3.77-5.28 [facility]; [facility] Work Phone: Comment on above: PATIENT WAS FASTINGP ERFORMED BY: MELYSSA Gerry Azizjq4077 [facility] [id number] RBC Auto #/vol (Bld) 4.96 {x10E6/uL} Normal 3.77-5.28 [facility] Work Phone: WBC #/vol (Bld) 7.0 {x10E3/uL} Normal 3.4-10.8 Compr [facility] Internal Medicine Work Phone: Comment on above: PATIENT WAS FASTINGP ERFORMED BY: MELYSSA Gerry Qtiafb7720 [facility] [id number] WBC (Bld) [#/Vol] 7.0 10*3/uL Normal 3.4-10.8 [facility]; [facility] Work Phone: Comment on above: PATIENT WAS FASTINGP ERFORMED BY: MELYSSA Gerrynhi Gamyem8768 [facility] [id number] WBC Auto #/vol (Bld) 7.0 {x10E3/uL} Normal 3.4-10.8 [facility] Work Phone: HgA1C , Office ([phone])Ordere d By: Barbi Clements on 05-20-2017 Hemoglobin A1c/Hemoglobin.total mass fraction (Bld) 5.6 % Normal 4.6 - 7.1 Comprehensiv e Internal Medicine Work Phone: LIPID PANEL ([phone])Ordered B y: Supplier Development Manager on 05-20-2017 Cholesterol in HDL mass conc 63 mg/dL Normal [facility] Work Phone: Comment on above: PATIENT WAS FASTINGP ERFORMED BY: MELYSSA LabHaley Wgthnz2385 [facility] [id number] Cholesterol in LDL mass conc 149 mg/dL Abnormal 0-99 [facility] Work Phone: Comment on above: PATIENT WAS FASTINGP ERFORMED BY: MELYSSA JohnSimeon StoddardSrvxmc7252 [facility] [id number] Cholesterol in LDL/Cholesterol in HDL mass ratio 2.4 {ratio_units} Normal 0.0-3.2 [facility] Work Phone: Comment on above: LDL/HDL Ratio Men Wo men 1/2 Avg.Risk 1.0 1.5 Avg.Risk 3.6 3.2 2X Avg.Risk 6.2 5.0 3X Avg.Risk 8.0 6.1 PATIENT WAS FASTINGP ERFORMED BY: MELYSSA Stoddardlin6370 [facility] [id number] Cholesterol in VLDL mass conc 20 mg/dL Normal 5-40 [facility] Work Phone: Comment on above: PATIENT WAS FASTINGP ERFORMED BY: MELYSSA Stoddardlin6370 [facility] [id number] Cholesterol mass conc 232 mg/dL Abnormal 100-199 Com prehensive Internal Medicine Work Phone: Comment on above: PATIENT WAS FASTINGP ERFORMED BY: MELYSSA Stoddardlin6370 [facility] [id number] Triglyceride mass conc 102 mg/dL Normal 0-149 Co mprehensive Internal Medicine Work Phone: Comment on above: PATIENT WAS FASTINGP ERFORMED BY: MELYSSA Stoddardlin6370 [facility] [id number] METABOLIC PANEL, COMPREHENSI VE (00929)Ordered By: Supplier Development Manager on 05-20-2017 Albumin mass conc 4.2 g/dL Normal 3.6-4.8 Compreh ensive Internal Medicine Work Phone: Comment on above: PATIENT WAS FASTINGP ERFORMED BY: MELYSSA [facility] FacilityHaleyVirtua BerlinIlompl6830 [facility] [id number] Albumin/Globulin mass ratio 1.6 {ratio} Normal 1.2-2.2 [facility] Work Phone: Comment on above: PATIENT WAS FASTINGP ERFORMED BY: MELYSSA [facility] Qyyzyh1878 [address] RoadDublin [place] [id number] ALP [Catalytic activity/Vol] 98 U/L Normal 39-117 [facility] Internal Medicine; [facility] Internal Medicine Work Phone: Comment on above: PATIENT WAS FASTINGP ERFORMED BY: MELYSSA [facility] Avruup1895 [address] RoadDublin [place] [id number] ALP enzyme act/vol 98 [iU]/L Normal 39-117 [facility] Internal Medicine Work Phone: Comment on above: PATIENT WAS FASTINGP ERFORMED BY: MELYSSA [facility] Hgdyjv3481 [address] RoadDublin [place] [id number] ALT [Catalytic activity/Vol] 19 U/L Normal 0-32 [facility] Internal Medicine; [facility] Internal Medicine Work Phone: Comment on above: PATIENT WAS FASTINGP ERFORMED BY: MELYSSA [facility] Htauni1927 [address] RoadDublin [place] [id number] ALT enzyme act/vol 19 [iU]/L Normal 0-32 [facility] Internal Medicine Work Phone: Comment on above: PATIENT WAS FASTINGP ERFORMED BY: MELYSSA [facility] Ypbcnw7318 [address] RoadD[address] [place] [id number] AST [Catalytic activity/Vol] 21 U/L Normal 0-40 [facility] Internal Medicine; [facility] Internal Medicine Work Phone: Comment on above: PATIENT WAS FASTINGP ERFORMED BY: CB [facility] Mmmpas0429 [address] [place] [id number] AST enzyme act/vol 21 [iU]/L Normal 0-40 [facility] Internal Medicine Work Phone: Comment on above: PATIENT WAS FASTINGP ERFORMED BY: CB [facility] Hbcjrj9020 [address] RoadD[address] [place] [id number] Bilirubin mass conc 0.5 mg/dL Normal 0.0-1.2 [facility] Internal Medicine Work Phone: Comment on above: PATIENT WAS FASTINGP ERFORMED BY: CB [facility] Numeqp8218 [address] RoadDublin [place] [id number] Calcium mass conc 9.9 mg/dL Normal 8.7-10.3 Compreh ensive Internal Medicine Work Phone: Comment on above: PATIENT WAS FASTINGP ERFORMED BY: MELYSSA Stoddardlin6370 [facility] [id number] Chloride molar conc 98 mmol/L Normal 96-106 Compr ehensive Internal Medicine Work Phone: Comment on above: PATIENT WAS FASTINGP ERFORMED BY: [facility]6370 [facility] [id number] CO2 molar conc 28 mmol/L Normal 18-29 Comprehens [facility] Internal Medicine Work Phone: Comment on above: PATIENT WAS FASTINGP ERFORMED BY: [facility] Akbsyr3538 [facility] [id number] Creatinine mass conc 0.77 mg/dL Normal 0.57-1.00 Comp [facility] healthensive Internal Medicine Work Phone: Comment on above: PATIENT WAS FASTINGP ERFORMED BY: [facility]6370 [facility] [id number] GFR/1.73 sq M predicted among blacks CKD-EPI vol rate/area (S/P/Bld) 94 mL/min/1.73 Normal [facility] Work Phone: Comment on above: PATIENT WAS FASTINGP ERFORMED BY: [facility]6370 [facility] [id number] GFR/1.73 sq M predicted among non-blacks CKD-EPI vol rate/area (S/P/Bld) 82 mL/min/1.73 Normal Comprehensiv e Internal Medicine Work Phone: Comment on above: PATIENT WAS FASTINGP ERFORMED BY: [facility]6370 [facility] [id number] Globulin Calculated mass conc (S) 2.7 g/dL Normal 1.5-4.5 [facility] Work Phone: Globulin mass conc (S) 2.7 g/dL Normal 1.5-4.5 [facility] Work Phone: Comment on above: PATIENT WAS FASTINGP ERFORMED BY: MELYSSA LabSimeon StoddardTtkofo9381 [facility] Hospitalblin [place] [id number] Glucose mass conc 99 mg/dL Normal 65-99 Compreh ensive Internal Medicine Work Phone: Comment on above: PATIENT WAS FASTINGP ERFORMED BY: MELYSSA Breaux6370 [address] RoadUnc [facility] Rexin [place] [id number] Potassium molar conc 4.4 mmol/L Normal 3.5-5.2 Comp rehensive Internal Medicine Work Phone: Comment on above: PATIENT WAS FASTINGP ERFORMED BY: MELYSSA Stoddardlin6370 [facility] Hospital[facility] [place] [id number] Protein mass conc 6.9 g/dL Normal 6.0-8.5 Compreh ensive Internal Medicine Work Phone: Comment on above: PATIENT WAS FASTINGP ERFORMED BY: MELYSSA Stoddardlin6370 [facility] [id number] Sodium molar conc 141 mmol/L Normal 134-144 Compreh ensive Internal Medicine Work Phone: Comment on above: PATIENT WAS FASTINGP ERFORMED BY: MELYSSA Stoddardlin6370 [facility] [id number] Urea nitrogen mass conc 18 mg/dL Normal 8-27 [facility] Work Phone: Comment on above: PATIENT WAS FASTINGP ERFORMED BY: MELYSSA Stoddardlin6370 [facility] [id number] Urea nitrogen/Creatinine mass ratio 23 mg/mg Normal 12-28 [facility] Work Phone: Comment on above: PATIENT WAS FASTINGP ERFORMED BY: MELYSSA LabSimeon StoddardTqvimh8162 [facility]in [place] [id number] MICROALBUMINOrdered By: Syst em Pasta Maker on 05-20-2017 Albumin DL <= 20 mg/L (U) [Mass/Vol] mg/dL Normal [facility]; [facility] Work Phone: Comment on above: PATIENT WAS FASTINGP ERFORMED BY: MELYSSA Stoddardlin6370 [facility] [place] [id number] Albumin DL <= 20 mg/L mass conc (U) mg/dL Normal [facility] Work Phone: Comment on above: PATIENT WAS FASTINGP ERFORMED BY: [facility] Pykdzm2943 [facility] [id number] Albumin/Creatinine mass ratio (U) <10.4 Normal 0.0-30.0 [facility] Work Phone: Comment on above: PATIENT WAS FASTINGP ERFORMED BY: [facility] Cvrbdx4382 [facility] [id number] Creatinine mass conc (U) 28.9 mg/dL Normal [facility] Work Phone: Comment on above: PATIENT WAS FASTINGP ERFORMED BY: [facility] Cpeuiy0681 [facility] [id number] TSH ([id number])Ordered By: Romana Sinclair on 05-20-2017 Thyrotropin Qn 1.770 {uIU/mL} Normal 0.450-4.500 Compr [facility] Internal Medicine Work Phone: Comment on above: PATIENT WAS FASTINGP ERFORMED BY: [facility] Oxfbxr2500 [facility] [id number] Rapid Flu (53645 x 2)Ordered By: Bibiana Shay on 01-11-2017 FLUAV Ag IA Ql (Throat) Negative Normal [facility] Work Phone: FLUAV Ag IA Ql (Throat) Negative Normal [facility]; [facility] Work Phone: HgA1C , Office ([phone])Ordere d By: BEN Willis on 04-03-2016 Hemoglobin A1c/Hemoglobin.total mass fraction (Bld) 6.1 % Normal 4.6 - 7.1 Comprehensiv e Internal Medicine Work Phone: VANTOrdered By: System Manag er on 08-24-2013 VANT 3.8 ug/ml Abnormal 5.0-15.0 [facility] Work Phone: Comment on above: VANCOMYCIN STANDARED DRUG THERAPY TROUGH LEVEL:5.0 - 15.0 mg/LVANCOMYCIN HIGH INTENSITY THERAPY TROUGH LEVEL:15.0 - 20.0 mg/LHigh Intensity therapy recommended for serious lifethreatening infections include:- Jwfavjcscw-Nhsrxlwscszi-Wdgdujnwy (Ventilator/Healtcare Associated)-SepsisPLEASE CONTACT PHARMACY SERVICES (#0216) FOR INTERPRETATIONOF RESULTS. CUWOrdered By: System Manage r on 08-22-2013 CUW See Note Normal [facility] Work Phone: Comment on above: If further studies a re desired, please contact theMicrobiology Laboratory within 48 hours. AMOUNT GROWTH VERY RARE ORGANISM 1: COAG NEGATIVE STAPH GRAM STAIN2+ RED ZACH L STROMANO ORGANISMS SEEN MRSADOrdered By: System Micki garcia on 08-21-2013 MRSAD Negative Normal [facility] Work Phone: MRSAD NASAL SWAB Normal [facility] Work Phone: Blood Glucose , Office ([phone])Ordered By: Marci Pardo on 06-30-2013 Glucose Glucometer molar conc (BldC) 110 1 Normal [facility] Work Phone: Comment on above: 110 HgA1C , Office ([phone])Ordere d By: Marci Pardo on 06-30-2013 Hemoglobin A1c/Hemoglobin.total mass fraction (Bld) 5.9 % Normal 4.6 - 7.1 Comprehensiv e Internal Medicine Work Phone: Comment on above: 5.9 Metabolic Panel, Basic (8004 8)Ordered By: Supplier Development Manager on 06-30-2013 Calcium mass conc 10.0 mg/dL Normal 8.6-10.2 Compreh ensive Internal Medicine Work Phone: Comment on above: PATIENT NOT FASTINGP ERFORMED BY: CB [facility] Jvywry9007 [facility] [id number] Information: [id number] Chloride molar conc 102 mmol/L Normal 97-108 Compr ehensive Internal Medicine Work Phone: Comment on above: PATIENT NOT FASTINGP ERFORMED BY: [employer] [facility] Wcdxbh4490 [facility] [id number] Information: [id number] CO2 molar conc 24 mmol/L Normal 19-28 Comprehens [facility] Internal Medicine Work Phone: Comment on above: PATIENT NOT FASTINGP ERFORMED BY: MELYSSA LabConhi BreauxOolprq9798 [facility] [id number] Information: [id number] Creatinine mass conc 0.76 mg/dL Normal 0.57-1.00 Comp rehensive Internal Medicine Work Phone: Comment on above: PATIENT NOT FASTINGP ERFORMED BY: [facility] Ydmwca3060 [facility] [facility] [id number] Information: [id number] GFR/1.73 sq M predicted among blacks CKD-EPI vol rate/area (S/P/Bld) 99 mL/min/1.73 Normal [facility] Work Phone: Comment on above: PATIENT NOT FASTINGP ERFORMED BY: LabCoMichelle [place] [id number] [facility] [id number] Information: [id number] GFR/1.73 sq M predicted among non-blacks CKD-EPI vol rate/area (S/P/Bld) 86 mL/min/1.73 Normal Comprehens[facility] e [facility] Work Phone: Comment on above: PATIENT NOT FASTINGP ERFORMED BY: [facility] Lnyhlo4867 [facility] [id number] Information: [id number] Glucose mass conc 106 mg/dL Abnormal 65-99 Compreh ensive [facility] Medicine Work Phone: Comment on above: PATIENT NOT FASTINGP ERFORMED BY: [facility] [id number] [facility] [id number] Information: [id number] Potassium molar conc 4.5 mmol/L Normal 3.5-5.2 Comp rehensive Internal Medicine Work Phone: Comment on above: PATIENT NOT FASTINGP ERFORMED BY: CB [facility] [id number] [facility] [id number] Information: [id number] Sodium molar conc 139 mmol/L Normal 134-144 Compreh ensive [facility] Medicine Work Phone: Comment on above: PATIENT NOT FASTINGP ERFORMED BY: MELYSSA [facility] Duaxkh7089 [facility] [id number] Information: [id number] Urea nitrogen mass conc 21 mg/dL Normal 8- [facility] Work Phone: Comment on above: PATIENT NOT FASTINGP ERFORMED BY: [facility] Jsnpwh9634 [facility] [id number] Information: [id number] Urea nitrogen/Creatinine mass ratio 28 mg/mg Abnormal - [facility] Work Phone: Comment on above: PATIENT NOT FASTINGP ERFORMED BY: LabSean [place] [id number] [facility] [id number] Information: [id number] TSH ([id number])Ordered By: Syste m Pasta Maker on 06-30-2013 Thyrotropin Qn 2.030 {uIU/mL} Normal 0.450-4.500 Compr ehensive Internal Medicine Work Phone: Comment on above: PATIENT NOT FASTINGP ERFORMED BY: [facility]6370 [facility] [id number] Blood Glucose , Office ([phone])Ordered By: Marci Pardo on 03-28-2013 Glucose Glucometer molar conc (BldC) 92 1 Normal [facility] Work Phone: HgA1C , Office ([id number])Ordere d By: Marci Pardo on 03-28-2013 Hemoglobin A1c/Hemoglobin.total mass fraction (Bld) 6.1 % Normal 4.6 - 7.1 Comprehensiv e [facility] Work Phone: LEFT HEART CATH/COR/LV PERCU TOrdered By: Supplier Development Manager on 01-20-2010 LEFT HEART CATH/COR/LV PERCUT See Note Normal [facility] Work Phone: Comment on above: Exam Number: [id number] Procedure completed. Please see MEDICAL RECORDS reports in PCI -OP - OP NOTELET - LETTER. Reported By: MELVIN ARCEO M.D. C-REACTIVE PROTEIN ([id number])Or dered By: Carolynn Srivastava on 07-18-2008 CRP mass conc 6.2 mg/L Abnormal 0.0-4.9 [facility] Work Phone: Comment on above: PATIENT NOT FASTINGP ERFORMED BY: MELYSSA [facility] Ridpjd0336 [address] [place] [id number] MICROALBUMIN URINE QUANT ([id number] 043)Ordered By: Carolynn Srivastava on 07-18-2008 Albumin DL <= 20 mg/L mass conc (U) 3.4 ug/mL Normal 0.0-17.0 [facility] Internal Medicine Work Phone: Comment on above: PATIENT NOT FASTINGP ERFORMED BY: MELYSSA [facility] [id number] [facility] [id number] SED RATE ERYTHROCYTE ([id number]) Ordered By: Carolynn Srivastava on 07-18-2008 ESR Velocity (Bld) 10 mm/h Normal 0-30 [facility] Internal Medicine Work Phone: Comment on above: PATIENT NOT FASTINGP ERFORMED BY: MELYSSA [facility] Rnajfn4741 [facility] [id number] TSH ([id number])Ordered By: Roamna Sinclair on 07-18-2008 Thyrotropin Qn 1.728 {uIU/mL} Normal 0.350-5.500 [facility] Internal Medicine Work Phone: Comment on above: Adult TSH concentrat ions below 5.5 uIU/mL do not rule out the presence of subclinical hypothyroidism. . EFFECTIVE JULY 23, 2008 the adult reference interval for TSH will be changing to: 0.450 - 4.500 uIU/mL. PATIENT NOT FASTINGP ERFORMED BY: [employer] [facility] Wnryly9566 [facility] [id number] URINALYSIS W/O MICRO ([id number]) Ordered By: Carolynn Srivastava on 07-18-2008 Appearance Nom (U) Clear Normal Compre hensive Internal Medicine Work Phone: Comment on above: PATIENT NOT FASTINGC linical Information: ADD DRAW FEE [id number] ADD J [id number] PERFORMED BY: MELYSSA [facility] Purdrc9551 [address] RoadDublin [place] [id number] Bilirubin Ql (U) Negative Normal Comprehe nsive Internal Medicine Work Phone: Comment on above: PATIENT NOT FASTINGC linical Information: ADD DRAW FEE [id number] ADD J 58385 PERFORMED BY: MELYSSA [facility] [id number] [address] RoadDublin [place] [id number] Bilirubin Ql (U) Negative Normal Comprehe nsive Internal Medicine; [facility] Work Phone: Comment on above: PATIENT NOT FASTINGC linical Information: ADD DRAW FEE [id number] ADD J [id number] PERFORMED BY: MELYSSA [facility] Siimtu7505 [address] RoadDublin [place] [id number] Color Nom (U) Yellow Normal Comprehensi ve Internal Medicine Work Phone: Comment on above: PATIENT NOT FASTINGC linical Information: ADD DRAW FEE [id number] ADD J 09796 PERFORMED BY: MELYSSA [facility] Ksneky0751 [address] RoadDublin [place] [id number] Glucose Ql (U) Negative Normal Comprehens [facility] Work Phone: Comment on above: PATIENT NOT FASTINGC linical Information: ADD DRAW FEE [id number] ADD J 44565 PERFORMED BY: MELYSSA [facility] [id number] [address] RoadDublin [place] [id number] Glucose Ql (U) Negative Normal Comprehens [facility]; [facility] Work Phone: Comment on above: PATIENT NOT FASTINGC linical Information: ADD DRAW FEE [id number] ADD J 74513 PERFORMED BY: MELYSSA [facility] Tyhkps3710 [address] RoadDublin [place] [id number] Hemoglobin Ql (U) Negative Normal Compreh ensive Internal Medicine Work Phone: Comment on above: PATIENT NOT FASTINGC linical Information: ADD DRAW FEE [id number] ADD J 59845 PERFORMED BY: MELYSSA [facility] Ngkfte1503 [address] RoadDublin [place] [id number] Hemoglobin Ql (U) Negative Normal Compreh ensive Internal Medicine; [facility] Work Phone: Comment on above: PATIENT NOT FASTINGC linical Information: ADD DRAW FEE 062763 ADD J 26564 PERFORMED BY: [facility] Ucmmwd8701 [facility]Trans[facility] [id number] Hemoglobin Test strip Ql (U) Negative Normal [facility] Work Phone: Ketones Ql (U) Negative Normal Comprehens [facility] Work Phone: Comment on above: PATIENT NOT FASTINGC linical Information: ADD DRAW FEE [id number] ADD J 32189 PERFORMED BY: LabCoLori [place] [address] [facility] RoadTrans[facility] [id number] Ketones Ql (U) Negative Normal Comprehens [facility]; [facility] Work Phone: Comment on above: PATIENT NOT FASTINGC linical Information: ADD DRAW FEE [id number] ADD J 47826 PERFORMED BY: LabLeslie [place] [address] [facility] [id number] Leukocyte esterase Test strip Ql (U) Negative Normal [facility] Work Phone: Comment on above: PATIENT NOT FASTINGC linical Information: ADD DRAW FEE [id number] ADD J 94763 PERFORMED BY: [facility] [id number] [facility] [id number] Leukocyte esterase Test strip Ql (U) Negative Normal [facility]; [facility] Work Phone: Comment on above: PATIENT NOT FASTINGC linical Information: ADD DRAW FEE [id number] ADD J 06152 PERFORMED BY: LabCoMichelle [place] [id number] [facility] [id number] Microscopic observation LM Nom (Urine sed) MICRON Normal [facility] Work Phone: Comment on above: Microscopic follows if indicated. PATIENT NOT FASTINGC linical Information: ADD DRAW FEE [id number] ADD J 97348 PERFORMED BY: [facility] Oqsxuj6335 [facility] [id number] Nitrite Ql (U) Negative Normal Comprehens [facility] Work Phone: Comment on above: PATIENT NOT FASTINGC linical Information: ADD DRAW FEE [id number] ADD J 16320 PERFORMED BY: MELYSSA Lopez[facility] Sdlxuq6919 [facility] RoadTransylvania [facility] [id number] Nitrite Ql (U) Negative Normal Comprehens [facility]; [facility] Work Phone: Comment on above: PATIENT NOT FASTINGC linical Information: ADD DRAW FEE [id number] ADD J 29551 PERFORMED BY: MELYSSA [facility] Ptdokd1683 [facility] RoadTransylvania [facility] Hospital [id number] Nitrite Test strip Ql (U) Negative Normal [facility] Work Phone: pH (U) 7.0 [pH] Normal 5.0-7.5 [facility] Work Phone: Comment on above: PATIENT NOT FASTINGC linical Information: ADD DRAW FEE [id number] ADD J 98735 PERFORMED BY: MELYSSA [facility] Ysfvws9800 [facility] [id number] pH Test strip (U) 7.0 [pH] Normal 5.0-7.5 Compreh ensive Internal Medicine Work Phone: Protein Ql (U) Negative Normal Comprehens [facility] Work Phone: Comment on above: PATIENT NOT FASTINGC linical Information: ADD DRAW FEE [id number] ADD J 43686 PERFORMED BY: MELYSSA LopezCo Ertyav9693 [facility] [id number] Protein Ql (U) Negative Normal Comprehens [facility]; [facility] Work Phone: Comment on above: PATIENT NOT FASTINGC linical Information: ADD DRAW FEE [id number] ADD J 97981 PERFORMED BY: MELYSSA LabAsp[facility]6370 [facility] [id number] Protein Test strip Ql (U) Negative Normal [facility] Work Phone: Specific gravity Relative Density (U) 1.012 1 Normal 1.005-1.030 Comprehensi ve Internal Medicine Work Phone: Comment on above: PATIENT NOT FASTINGC linical Information: ADD DRAW FEE [id number] ADD J 16506 PERFORMED BY: MELYSSA [facility] Ifhkbm1864 [facility] [id number] Urobilinogen (U) [Mass/Vol] 0.2 mg/dL Normal 0.0-1.9 [facility]; [facility] Work Phone: Comment on above: PATIENT NOT FASTINGC linical Information: ADD DRAW FEE [id number] ADD J 52561 PERFORMED BY: MELYSSA [facility] Pfcssr4155 [address] [facility]Trans[facility] [id number] Urobilinogen Test strip mass conc (U) 0.2 mg/dL Normal 0.0-1.9 Comprehensiv e Internal Medicine Work Phone: Comment on above: PATIENT NOT FASTINGC linical Information: ADD DRAW FEE [id number] ADD J 91417 PERFORMED BY: MELYSSA LabConhi StoddardAznnrz4227 [facility] [id number] VITAMIN B-12 (CYANOCOBALAMIN ) ([id number])Ordered By: Carolynn Srivastava on 07-18-2008 Cobalamin (Vitamin B12) mass conc 309 pg/mL Normal 211-911 [facility] Work Phone: Comment on above: PATIENT NOT FASTINGP ERFORMED BY: MELYSSA [facility] Dryrmn3663 [facility] [id number] Vital Signs Date Time Vital Sign Value Performing Clinician Facility 07-30-2023 11:21040 Body height 154.94 cm BEN Willis LPN [facility]; [facility] Work Phone: 07-30-2023 11:21-0400 Body mass index (BMI) [Ratio] 38.55 kg/m2 BEN Willis LPN [facility]; [facility] Work Phone: 07-30-2023 11:21-0400 Body surface area Derived from formula 1.91 m2 BEN Willis LPN [facility]; [facility] Work Phone: 07-30-2023 11:21040 Body temperature 97.5 [degF] BEN Willis LPN [facility]; [facility] Work Phone: Comment on above: Method: Temporal 07-30-2023 11:21-0400 Body weight 92.53 kg BEN Willis LPN [facility]; [facility] Work Phone: 07-30-2023 11:21-0400 Diastolic blood pressure 70 mm[Hg] BEN Willis LPN [facility]; [facility] Work Phone: Comment on above: Patient Position: Sitting; Cuff Location : Left Arm; Cuff Size: Large 07-30-2023 11:21-0400 Heart rate 70 /min BEN Willis RUBBER COMPOUNDER [employer]IXER [facility]; [facility] Work Phone: Comment on above: Pattern: Regular 07-30-2023 11:21-0400 Respiratory rate 18 /min BEN Willis LPN [facility]; [facility] Work Phone: Comment on above: Pattern: Unlabored 07-30-2023 11:21-0400 SaO2% (BldA) [Mass fraction] 97 % BEN Willis LPN [facility]; [facility] Work Phone: Comment on above: Room air 07-30-2023 11:21-0400 Systolic blood pressure 116 mm[Hg] BEN Willis LPN [facility]; [facility] Work Phone: Comment on above: Patient Position: Sitting; Cuff Location : Left Arm; Cuff Size: Large 04-01-2023 08:53-0400 Body height 154.94 cm [facility]; [facility] Work Phone: 04-01-2023 08:53-0400 Body mass index (BMI) [Ratio] 37.62 kg/m2 [facility]; [facility] Work Phone: 04-01-2023 08:53-0400 Body surface area Derived from formula 1.89 m2 [facility]; [facility] Work Phone: 04-01-2023 08:53-0400 Body temperature 97 [degF] [facility]; [facility] Work Phone: 04-01-2023 08:53-0400 [facility]; [facility] Work Phone: 04-01-2023 08:53-0400 Diastolic blood pressure 70 mm[Hg] [facility]; [facility] Work Phone: Comment on above: Patient Position: Sitting; Cuff Location : Left Arm; Cuff Size: Standard 04-01-2023 08:53-0400 Heart rate 82 /min [facility]; [facility] Work Phone: Comment on above: Pattern: Regular 04-01-2023 08:53-0400 Respiratory rate 16 /min [facility]; [facility] Work Phone: Comment on above: Pattern: Unlabored 04-01-2023 08:53-0400 SaO2% (BldA) [Mass fraction] 98 % [facility]; [facility] Work Phone: Comment on above: Room air 04-01-2023 08:53-0400 Systolic blood pressure 122 mm[Hg] [facility]; [facility] Work Phone: Comment on above: Patient Position: Sitting; Cuff Location : Left Arm; Cuff Size: Standard 03-15-2023 15:47-0400 Body height 154.94 cm [facility]; [facility] Work Phone: 03-15-2023 15:47-0400 Body mass index (BMI) [Ratio] 38.07 kg/m2 [facility]; [facility] Work Phone: 03-15-2023 15:47-0400 Body surface area Derived from formula 1.9 m2 [facility]; [facility] Work Phone: 03-15-2023 15:47-0400 Body temperature 97.3 [degF] [facility]; [facility] Work Phone: 03-15-2023 15:47-0400 Body weight 91.4 kg [facility]; [facility] Work Phone: 03-15-2023 15:47-0400 Diastolic blood pressure 70 mm[Hg] [facility]; [facility] Work Phone: Comment on above: Patient Position: Sitting; Cuff Location : Left Arm; Cuff Size: Standard 03-15-2023 15:47-0400 Heart rate 76 /min [facility]; [facility] Work Phone: Comment on above: Pattern: Regular 03-15-2023 15:47-0400 Respiratory rate 18 /min [facility]; [facility] Work Phone: Comment on above: Pattern: Unlabored 03-15-2023 15:47-0400 SaO2% (BldA) [Mass fraction] 95 % [facility]; [facility] Work Phone: Comment on above: Room air 03-15-2023 15:47-0400 Systolic blood pressure 120 mm[Hg] [facility]; [facility] Work Phone: Comment on above: Patient Position: Sitting; Cuff Location : Left Arm; Cuff Size: Standard 02-22-2023 16:17-0400 Body height 154.94 cm Lupe Umesh DO Work Phone: [facility]; [facility] Work Phone: 02-22-2023 16:17-0400 Body mass index (BMI) [Ratio] 39.3 kg/m2 Lupe Umesh DO Work Phone: [facility]; [facility] Work Phone: 02-22-2023 16:17-0400 Body surface area Derived from formula 1.92 m2 Lupe Umesh DO Work Phone: [facility]; [facility] Work Phone: 02-22-2023 16:17-0400 Body temperature 97 [degF] Lupe Umesh DO Work Phone: [facility]; [facility] Work Phone: Comment on above: Method: Thermal Scan 02-22-2023 16:17-0400 Body weight 94.35 kg Lupe Calvo DO Work Phone: [facility]; [facility] Work Phone: 02-22-2023 16:17-0400 Diastolic blood pressure 78 mm[Hg] Lupe Calvo DO Work Phone: [facility]; [facility] Work Phone: Comment on above: Patient Position: Sitting; Cuff Location : Left Arm; Cuff Size: Standard 02-22-2023 16:17-0400 Heart rate 79 /min Lupe Calvo DO Work Phone: [facility]; [facility] Work Phone: Comment on above: Pattern: Regular 02-22-2023 16:17-0400 Respiratory rate 16 /min Lupe Calvo DO Work Phone: [facility]; [facility] Work Phone: Comment on above: Pattern: Unlabored 02-22-2023 16:17-0400 Systolic blood pressure 140 mm[Hg] Lupe Calvo DO Work Phone: [facility]; [facility] Work Phone: Comment on above: Patient Position: Sitting; Cuff Location : Left Arm; Cuff Size: Standard 02-08-2023 15:57-0400 Body height 154.94 cm Lupe Calvo DO Work Phone: [facility]; [facility] Work Phone: Comment on above: home scale prior to coming into ov- #210 02-08-2023 15:57-0400 Body mass index (BMI) [Ratio] 40.43 kg/m2 Lupe Calvo DO Work Phone: [facility]; [facility] Work Phone: Comment on above: home scale prior to coming into ov- #210 13-2023 15:57-0400 Body surface area Derived from formula 1.94 m2 Lupe Rosson DO Work Phone: [facility]; [facility] Work Phone: Comment on above: home scale prior to coming into ov- 02-08-2023 15:57-0400 Body temperature 98.4 [degF] Lupe Umesh DO Work Phone: [facility]; [facility] Work Phone: Comment on above: Method: Thermal Scan home scale prior to coming into ov- #02-08-2023 15:57-0400 Body weight 97.07 kg Lupe Umesh DO Work Phone: [facility]; [facility] Work Phone: Comment on above: home scale prior to coming into ov- 02-08-2023 15:57-0400 Diastolic blood pressure 72 mm[Hg] Lupe Umesh DO Work Phone: [facility]; [facility] Work Phone: Comment on above: Patient Position: Sitting; Cuff Location : Left Arm; Cuff Size: Standard home scale prior to coming into - 02-08-2023 15:57-0400 Heart rate 67 /min Lupe Rosson DO Work Phone: [facility]; [facility] Work Phone: Comment on above: Pattern: Regular home scale prior to coming into - 02-08-2023 15:57-0400 Respiratory rate 16 /min Lupe Umesh DO Work Phone: [facility]; [facility] Work Phone: Comment on above: Pattern: Unlabored home scale prior to coming into - 02-08-2023 15:57-0400 SaO2% (BldA) [Mass fraction] 98 % Lupe Umesh DO Work Phone: [facility]; [facility] Work Phone: Comment on above: Room air home scale prior to coming into ov- #210 02-08-2023 15:57-0400 Systolic blood pressure 126 mm[Hg] Lupe Umesh DO Work Phone: [facility]; [facility] Work Phone: Comment on above: Patient Position: Sitting; Cuff Location : Left Arm; Cuff Size: Standard home scale prior to coming into ov- #210 12-03-2021 15:37-0500 Body height 154.94 cm Sabrina Conway LPN [facility]; [facility] Work Phone: 12-03-2021 15:37-0500 Body mass index (BMI) [Ratio] 35.52 kg/m2 Sabrina Conway LPN [facility]; [facility] Work Phone: 12-03-2021 15:37-0500 Body surface area Derived from formula 1.84 m2 Sabrina Conway LPN [facility]; [facility] Work Phone: 12-03-2021 15:37-0500 Body weight 85.28 kg Sabrina Conway LPN [facility]; [facility] Work Phone: 12-03-2021 15:37-0500 Diastolic blood pressure 72 mm[Hg] Sabrina Conway LPN [facility]; [facility] Work Phone: Comment on above: Patient Position: Sitting; Cuff Location : Left Arm; Cuff Size: Standard 12-03-2021 15:37-0500 Systolic blood pressure 134 mm[Hg] Sabrina Conway LPN [facility]; [facility] Work Phone: Comment on above: Patient Position: Sitting; Cuff Location : Left Arm; Cuff Size: Standard 11-17-2021 16:15-0500 Body height 154.94 cm Lupe Rosson DO Work Phone: [facility]; [facility] Work Phone: Comment on above: partial vs with virtual visit 11-17-2021 16:15-0500 Body mass index (BMI) [Ratio] 36.09 kg/m2 Lupe Umesh DO Work Phone: [facility]; [facility] Work Phone: Comment on above: partial vs with virtual visit 11-17-2021 16:15-0500 Body surface area Derived from formula 1.85 m2 Lupe Calvo DO Work Phone: [facility]; [facility] Work Phone: Comment on above: partial vs with virtual visit 11-17-2021 16:15-0500 Body weight 86.64 kg Lupe Calvo DO Work Phone: [facility]; [facility] Work Phone: Comment on above: partial vs with virtual visit 11-17-2021 16:15-0500 Diastolic blood pressure 78 mm[Hg] Lupe Calvo DO Work Phone: [facility]; [facility] Work Phone: Comment on above: Patient Position: Sitting partial vs with virt ual visit 11-17-2021 16:15-0500 Systolic blood pressure 140 mm[Hg] Lupe Calvo DO Work Phone: [facility]; [facility] Work Phone: Comment on above: Patient Position: Sitting partial vs with virt ual visit 10-29-2021 15:31-0500 Body height 154.94 cm Lupe Calvo DO Work Phone: [facility]; [facility] Work Phone: Comment on above: bp sigifredo 138/84-- pt dokng lots of physic al labor at work today 10-29-2021 15:31-0500 Body mass index (BMI) [Ratio] 36.09 kg/m2 Lupe Calvo DO Work Phone: [facility]; [facility] Work Phone: Comment on above: bp sigifredo 138/84-- pt dokng lots of physic al labor at work today 10-29-2021 15:31-0500 Body surface area Derived from formula 1.85 m2 Lupe Umesh DO Work Phone: [facility]; [facility] Work Phone: Comment on above: bp sigifredo 138/84-- pt dokng lots of physic al labor at work today 10-29-2021 15:31-0500 Body temperature 96.8 [degF] Lupe Calvo DO Work Phone: [facility]; [facility] Work Phone: Comment on above: Method: Oral bp sigifredo 138/84-- pt dokng lots of physical labor at work today 10-29-2021 15:31-0500 Body weight 86.64 kg Lupe Calvo DO Work Phone: [facility] Work Phone: Comment on above: bp sigifredo 138/84-- pt dokng lots of physic al labor at work today 10-29-2021 15:31-0500 Diastolic blood pressure 88 mm[Hg] Lupe Calvo DO Work Phone: [facility]; [facility] Work Phone: Comment on above: Patient Position: Sitting; Cuff Location : Left Arm; Cuff Size: Standard bp sigifredo 138/84-- pt dokng lots of physical labor at work today 10-29-2021 15:31-0500 Heart rate 96 /min Lupe Calvo DO Work Phone: [facility]; [facility] Work Phone: Comment on above: Pattern: Regular bp sigifredo 138/84-- pt dokng lots of physical labor at work today 10-29-2021 15:31-0500 Respiratory rate 16 /min Lupe Calvo DO Work Phone: [facility]; [facility] Work Phone: Comment on above: Pattern: Unlabored bp sigifredo 138/84-- pt dokng lots of physical labor at work today 10-29-2021 15:31-0500 SaO2% (BldA) [Mass fraction] 98 % Lupe Rosson DO Work Phone: [facility]; [facility] Work Phone: Comment on above: Room air bp sigifredo 138/84-- pt dokng lots of physical labor at work today 10-29-2021 15:31-0500 Systolic blood pressure 148 mm[Hg] Lupe Calvo DO Work Phone: [facility]; [facility] Work Phone: Comment on above: Patient Position: Sitting; Cuff Location : Left Arm; Cuff Size: Standard bp sigifredo 138/84-- pt dokng lots of physical labor at work today 10-13-2021 16:12-0500 Body temperature 97.3 [degF] Lupe Calvo DO Work Phone: [facility]; [facility] Work Phone: Comment on above: Method: Oral covid pt requested a visit through telemedicine. withthe covid19 pandemic we are not bringing patients in the office. only those that need evaluations in person. Pt. is aware that the telemedicine available in this crisis time is not HIPPA secure and encrypted and give verbal agreement to proceed. --no vitals 10-13-2021 16:12-0500 Body weight 87.54 kg Lupe Calvo DO Work Phone: [facility]; [facility] Work Phone: Comment on above: covid pt requested a visit through telem edicine. withthe covid19 pandemic we are not bringing patients in the office. only those that need evaluations in person. Pt. is aware that the telemedicine available in this crisis time is not HIPPA secure and encrypted and give verbal agreement to proceed. --no vitals 10-13-2021 16:12-0500 Diastolic blood pressure 80 mm[Hg] Lupe Calvo DO Work Phone: [facility]; [facility] Work Phone: Comment on above: Patient Position: Sitting covid pt requested a visit through telemedicine. withthe covid19 pandemic we are not bringing patients in the office. only those that need evaluations in person. Pt. is aware that the telemedicine available in this crisis time is not HIPPA secure and encrypted and give verbal agreement to proceed. --no vitals 10-13-2021 16:12-0500 Heart rate 75 /min Lupe Calvo DO Work Phone: [facility]; [facility] Work Phone: Comment on above: Pattern: Regular covid pt requested a visit through telemedicine. withthe covid19 pandemic we are not bringing patients in the office. only those that need evaluations in person. Pt. is aware that the telemedicine available in this crisis time is not HIPPA secure and encrypted and give verbal agreement to proceed. --no vitals 10-13-2021 16:12-0500 Systolic blood pressure 128 mm[Hg] Lupe Calvo DO Work Phone: [facility]; [facility] Work Phone: Comment on above: Patient Position: Sitting covid pt requested a visit through telemedicine. withthe covid19 pandemic we are not bringing patients in the office. only those that need evaluations in person. Pt. is aware that the telemedicine available in this crisis time is not HIPPA secure and encrypted and give verbal agreement to proceed. --no vitals 09-29-2021 15:59-0400 Body height 160.02 cm Suzy Heller LPN [facility]; [facility] Work Phone: 09-29-2021 15:59-0400 Body mass index (BMI) [Ratio] 35.1 kg/m2 Suzy Heller LPN [facility]; [facility] Work Phone: 09-29-2021 15:59-0400 Body surface area Derived from formula 1.93 m2 Suzy Heller LPN [facility]; [facility] Work Phone: 09-29-2021 15:59-0400 Body temperature 97.8 [degF] Suzy Heller LPN [facility]; [facility] Work Phone: Comment on above: Method: Temporal 09-29-2021 15:59-0400 Body weight 89.87 kg Suzy Heller LPN [facility]; [facility] Work Phone: 09-29-2021 15:59-0400 Diastolic blood pressure 70 mm[Hg] Suzy Heller [facility]; [facility] Work Phone: Comment on above: Patient Position: Sitting; Cuff Location : Left Arm; Cuff Size: Standard 09-29-2021 15:59-0400 Heart rate 96 /min Suzy Heller [facility]; [facility] Work Phone: Comment on above: Pattern: Regular 09-29-2021 15:59-0400 Respiratory rate 16 /min Suzy Heller [facility]; [facility] Work Phone: Comment on above: Pattern: Hyperventilation 09-29-2021 15:59-0400 SaO2% (BldA) [Mass fraction] 97 % Suzy Hellre [facility]; [facility] Work Phone: Comment on above: Room air 09-29-2021 15:59-0400 Systolic blood pressure 128 mm[Hg] Suzy Heller [employer] Compreh [facility]; [facility] Work Phone: Comment on above: Patient Position: Sitting; Cuff Location : Left Arm; Cuff Size: Standard 04-21-2021 15:44-0400 Body height 160.02 cm [facility]; [facility] Work Phone: 04-21-2021 15:44-0400 Body mass index (BMI) [Ratio] 34.01 kg/m2 [facility]; [facility] Work Phone: 04-21-2021 15:44-0400 Body surface area Derived from formula 1.9 m2 [facility]; [facility] Work Phone: 04-21-2021 15:44-0400 Body weight 87.09 kg [facility]; [facility] Work Phone: 03-19-2021 08:58-0400 Body height 160.02 cm [facility]; [facility] Work Phone: 03-19-2021 08:58-0400 Body mass index (BMI) [Ratio] 34.1 kg/m2 [facility]; [facility] Work Phone: 03-19-2021 08:58-0400 Body mass index (BMI) [Ratio] 34.01 kg/m2 [facility]; [facility] Work Phone: 03-19-2021 08:58-0400 Body surface area Derived from formula 1.9 m2 [facility]; [facility] Work Phone: 03-19-2021 08:58-0400 Body temperature 96.9 [degF] [facility]; [facility] Work Phone: Comment on above: Method: Thermal Scan 03-19-2021 08:58-0400 Body weight 87.32 kg [facility]; [facility] Work Phone: 03-19-2021 08:58-0400 Body weight 87.09 kg [facility]; [facility] Work Phone: 03-19-2021 08:58-0400 Diastolic blood pressure 76 mm[Hg] [facility]; [facility] Work Phone: Comment on above: Patient Position: Sitting; Cuff Location : Left Arm; Cuff Size: Standard 03-19-2021 08:58-0400 Heart rate 93 /min [facility]; [facility] Work Phone: Comment on above: Pattern: Regular 03-19-2021 08:58-0400 Respiratory rate 16 /min [facility]; [facility] Work Phone: Comment on above: Pattern: Unlabored 03-19-2021 08:58-0400 SaO2% (BldA) [Mass fraction] 98 % [facility]; [facility] Work Phone: Comment on above: Room air 03-19-2021 08:58-0400 Systolic blood pressure 120 mm[Hg] Adelina Eh MCMAHON Compreh [facility]; [facility] Work Phone: Comment on above: Patient Position: Sitting; Cuff Location : Left Arm; Cuff Size: Standard 03-05-2021 13:00-0400 BMI (Body Mass Index) 34.45 kg/m2 Lupe Calvo [facility]; [facility] Work Phone: 03-05-2021 13:00-0400 Body mass index (BMI) [Ratio] 34.1 kg/m2 Izzy Valencia [facility]; [facility] Work Phone: 03-05-2021 13:00-0400 Body surface area Derived from formula 1.9 m2 Izzy Biswasius [facility]; [facility] Work Phone: 03-05-2021 13:00-0400 Body temperature 96.8 [degF] Izzy Biswasius [facility]; [facility] Work Phone: Comment on above: Method: Infrared 03-05-2021 13:00-0400 Body weight 88.23 kg Lupe Rosson [facility]; [facility] Work Phone: 03-05-2021 13:00-0400 Body weight 87.32 kg Izzy Valencia [facility]; [facility] Work Phone: 03-05-2021 13:00-0400 BSA (Body Surface Area) 1.91 m2 Lupe Calvo Amber [facility]; [facility] Work Phone: 03-05-2021 13:00-0400 Diastolic blood pressure 80 mm[Hg] Izzy Biswasius [facility]; [facility] Work Phone: Comment on above: Patient Position: Sitting; Cuff Location : Left Arm; Cuff Size: Standard 03-05-2021 13:00-0400 Heart rate 94 /min Izzy Biswasius [facility]; [facility] Work Phone: Comment on above: Pattern: Regular 03-05-2021 13:00-0400 Height 160.02 cm Izzy Valencia [facility]; [facility] Work Phone: 03-05-2021 13:00-0400 Respiratory rate 18 /min Izzy Valencia [facility]; [facility] Work Phone: Comment on above: Pattern: Unlabored 03-05-2021 13:00-0400 SaO2% (BldA) [Mass fraction] 96 % Izzy Valencia [facility]; [facility] Work Phone: Comment on above: Room air 03-05-2021 13:00-0400 Systolic blood pressure 123 mm[Hg] Izzy Valencia [facility]; [facility] Work Phone: Comment on above: Patient Position: Sitting; Cuff Location : Left Arm; Cuff Size: Standard 02-20-2021 06:53-0400 BMI (Body Mass Index) 34.45 kg/m2 [facility] Comprehen s[facility]; [facility] Work Phone: 02-20-2021 06:53-0400 Body weight 88.23 kg [facility]; [facility] Work Phone: 02-20-2021 06:53-0400 BP Diastolic 80 mm[Hg] [facility]; [facility] Work Phone: Comment on above: Patient Position: Sitting; Cuff Location : Left Arm; Cuff Size: Standard 02-20-2021 06:53-0400 BP Systolic 132 mm[Hg] [facility]; [facility] Work Phone: Comment on above: Patient Position: Sitting; Cuff Location : Left Arm; Cuff Size: Standard 02-20-2021 06:53-0400 BSA (Body Surface Area) 1.91 m2 [facility] Compre[facility] ens[facility]; [facility] Work Phone: 02-20-2021 06:53-0400 Height 160.02 cm [facility]; [facility] Work Phone: 02-10-2021 15:29-0400 BMI (Body Mass Index) 34.81 kg/m2 Izzy Valencia [facility]; [facility] Work Phone: 02-10-2021 15:29-0400 Body Temperature 97.3 [degF] Izzy Valencia CMA [facility]; [facility] Work Phone: Comment on above: Method: Infrared 02-10-2021 15:29-0400 Body weight 89.13 kg Izzy Valencia [facility]; [facility] Work Phone: 02-10-2021 15:29-0400 BP Diastolic 78 mm[Hg] Izzy Valencia [facility]; [facility] Work Phone: Comment on above: Patient Position: Sitting; Cuff Location : Left Arm; Cuff Size: Standard 02-10-2021 15:29-0400 BP Systolic 120 mm[Hg] Izzy Valencia [facility]; [facility] Work Phone: Comment on above: Patient Position: Sitting; Cuff Location : Left Arm; Cuff Size: Standard 02-10-2021 15:29-0400 BSA (Body Surface Area) 1.92 m2 Izzy Valencia [facility]; [facility] Work Phone: 02-10-2021 15:29-0400 Height 160.02 cm Izzy Valencia [facility]; [facility] Work Phone: 02-10-2021 15:29-0400 Pulse (Heart Rate) 83 /min Izzy Valencia [facility]; [facility] Work Phone: Comment on above: Pattern: Regular 02-10-2021 15:29-0400 Pulse Oximetry 96 % Lupe Calvo [facility]; [facility] Work Phone: Comment on above: Room air 02-10-2021 15:29-0400 Respiratory Rate 16 /min Izzy Valencia [facility]; [facility] Work Phone: Comment on above: Pattern: Unlabored 02-10-2021 15:29-0400 SaO2% (BldA) [Mass fraction] 96 % Izzyblanka Biswassebastien GIBBS [facility]; [facility] Work Phone: Comment on above: Room air 01-15-2021 15:31-0500 BMI (Body Mass Index) 36.05 kg/m2 Sabrina Conway SALOME Comprehe nsive [facility]; [facility] Work Phone: 01-15-2021 15:31-0500 Body Temperature 97.1 [degF] Sabrina Conway LPN [facility]; [facility] Work Phone: Comment on above: Method: Temporal 01-15-2021 15:31-0500 Body weight 92.31 kg Sabrina Conway LPN [facility]; [facility] Work Phone: 01-15-2021 15:31-0500 BP Diastolic 78 mm[Hg] Sabrnia Conway LPN [facility]; [facility] Work Phone: Comment on above: Patient Position: Sitting; Cuff Location : Left Arm; Cuff Size: Standard 01-15-2021 15:31-0500 BP Systolic 128 mm[Hg] Sabrina Conway LPN [facility]; [facility] Work Phone: Comment on above: Patient Position: Sitting; Cuff Location : Left Arm; Cuff Size: Standard 01-15-2021 15:31-0500 BSA (Body Surface Area) 1.95 m2 Sabrina Conway LPN Compre hens[facility]; [facility] Work Phone: 01-15-2021 15:31-0500 Height 160.02 cm Sabrina Conway LPN [facility]; [facility] Work Phone: 01-15-2021 15:31-0500 Pulse (Heart Rate) 82 /min Sabrina Zoraida LPN Comprehensi ve [facility]; [facility] Work Phone: Comment on above: Pattern: Regular 01-15-2021 15:31-0500 Pulse Oximetry 96 % Lupe Calvo [facility]; [facility] Work Phone: Comment on above: Room air 01-15-2021 15:31-0500 Respiratory Rate 16 /min Sabrina Conway [facility]; [facility] Work Phone: Comment on above: Pattern: Unlabored 01-15-2021 15:31-0500 SaO2% (BldA) [Mass fraction] 96 % Sabrina Conway [facility]; [facility] Work Phone: Comment on above: Room air 12-25-2020 15:29-0500 BMI (Body Mass Index) 37.73 kg/m2 Adelina [facility] Comprehen sive [facility]; [facility] Work Phone: 12-25-2020 15:29-0500 Body Temperature 97 [degF] [facility]; [facility] Work Phone: Comment on above: Method: Thermal Scan 12-25-2020 15:29-0500 Body weight 96.62 kg Adelina [facility]; [facility] Work Phone: 12-25-2020 15:29-0500 BP [facility] 76 mm[facility]Hg[facility] Work Phone: Comment on above: Patient Position: Sitting; Cuff Location : Left Arm; Cuff Size: Standard 12-25-2020 15:29-0500 BP Systolic 138 mm[Hg] [facility]; [facility] Work Phone: Comment on above: Patient Position: Sitting; Cuff Location : Left Arm; Cuff Size: Standard 12-25-2020 15:29-0500 BSA (Body Surface Area) 1.99 m2 [facility]; [facility] Work Phone: 12-25-2020 15:29-0500 Height 160.02 cm [facility]; [facility] Work Phone: 12-25-2020 15:29-0500 Pulse (Heart Rate) 78 /min Adelina Eh [facility] Comprehensiv e Internal [facility]; [facility] Work Phone: Comment on above: Pattern: Regular 12-25-2020 15:29-0500 Pulse Oximetry 94 % Lupe Rosson [facility]; [facility] Work Phone: Comment on above: Room air 12-25-2020 15:29-0500 Respiratory Rate 16 /min [facility]; [facility] Work Phone: Comment on above: Pattern: Unlabored 12-25-2020 15:29-0500 SaO2% (BldA) [Mass fraction] 94 % [facility]; [facility] Work Phone: Comment on above: Room air 12-09-2020 15:42-0500 BMI (Body Mass Index) 37.73 kg/m2 [facility]; [facility] Work Phone: 12-09-2020 15:42-0500 Body Temperature 97 [degF] [facility]; [facility] Work Phone: Comment on above: Method: Thermal Scan 12-09-2020 15:42-0500 Body weight 96.62 kg [facility]; [facility] Work Phone: 12-09-2020 15:42-0500 BP Diastolic 78 mm[Hg] [facility]; [facility] Work Phone: Comment on above: Patient Position: Sitting; Cuff Location : Left Arm; Cuff Size: Standard 12-09-2020 15:42-0500 BP Systolic 138 mm[Hg] [facility]; [facility] Work Phone: Comment on above: Patient Position: Sitting; Cuff Location : Left Arm; Cuff Size: Standard 12-09-2020 15:42-0500 BSA (Body Surface Area) 1.99 m2 [facility] Compreh ensive [facility]; [facility] Work Phone: 12-09-2020 15:42-0500 Height 160.02 cm [facility]; [facility] Work Phone: 12-09-2020 15:42-0500 Pulse (Heart Rate) 98 /min Adelina Stauffer [employer] Comprehensiv e [facility]; [facility] Work Phone: Comment on above: Pattern: Regular 12-09-2020 15:42-0500 Pulse Oximetry 97 % Lupe Calvo [facility]; [facility] Work Phone: Comment on above: Room air 12-09-2020 15:42-0500 Respiratory Rate 16 /min Adelina Stauffer [facility]; [facility] Work Phone: Comment on above: Pattern: Unlabored 12-09-2020 15:42-0500 SaO2% (BldA) [Mass fraction] 97 % Adelina Stauffer [facility]; [facility] Work Phone: Comment on above: Room air 10-16-2020 15:24-0500 BMI (Body Mass Index) 37.2 kg/m2 Adelina Stauffer [facility] Comprehen sive [facility] Work Phone: 10-16-2020 15:24-0500 Body Temperature 97 [degF] [facility] Work Phone: Comment on above: Method: Thermal Scan 10-16-2020 15:24-0500 Body weight 95.26 kg Adelina Stauffer [facility] Work Phone: 10-16-2020 15:24-0500 BP Diastolic 80 mm[Hg] [facility] Work Phone: Comment on above: Patient Position: Sitting; Cuff Location : Left Arm; Cuff Size: Standard 10-16-2020 15:24-0500 BP Systolic 138 mm[Hg] [facility] Work Phone: Comment on above: Patient Position: Sitting; Cuff Location : Left Arm; Cuff Size: Standard 10-16-2020 15:24-0500 BSA (Body Surface Area) 1.97 m2 Adelina Stauffer [facility] Compreh ensive [facility] Medicine Work Phone: 10-16-2020 15:24-0500 Height 160.02 cm Adelina Stauffer LPN [facility] Work Phone: 10-16-2020 15:24-0500 Pulse (Heart Rate) 84 /min Adelina Stauffer LPN Comprehensiv e [facility] Work Phone: Comment on above: Pattern: Regular 10-16-2020 15:24-0500 Pulse Oximetry 97 % Lupe Calvo [facility] Work Phone: Comment on above: Room air 10-16-2020 15:24-0500 Respiratory Rate 16 /min Adelina Stauffer LPN [facility] Work Phone: Comment on above: Pattern: Unlabored 10-16-2020 15:24-0500 SaO2% (BldA) [Mass fraction] 97 % Adelina Stauffer LPN [facility]; [facility] Work Phone: Comment on above: Room air 12-15-2018 06:53-0500 BMI (Body Mass Index) 38.79 kg/m2 Anderson Ceja LPN Comprehen sive [facility] Work Phone: 12-15-2018 06:53-0500 Body weight 99.34 kg Anderson Ceja LPN [facility] Work Phone: 12-15-2018 06:53-0500 BP Diastolic 82 mm[Hg] Anderson Ceja LPN [facility] Work Phone: Comment on above: Patient Position: Sitting; Cuff Location : Left Arm; Cuff Size: Standard 12-15-2018 06:53-0500 BP Systolic 130 mm[Hg] Anderson Ceja LPN [facility] Work Phone: Comment on above: Patient Position: Sitting; Cuff Location : Left Arm; Cuff Size: Standard 12-15-2018 06:53-0500 BSA (Body Surface Area) 2.01 m2 Anderson Ceja LPN Compreh ens[facility] Work Phone: 12-15-2018 06:53-0500 Height 160.02 cm Anderson Ceja LPN [facility] Work Phone: 12-15-2018 06:53-0500 Pulse (Heart Rate) 64 /min Anderson Ceja LPN Comprehensiv e [facility] Work Phone: Comment on above: Pattern: Regular 12-15-2018 06:53-0500 Pulse Oximetry 97 % Lupe Calvo [facility] Work Phone: Comment on above: Room air 12-15-2018 06:53-0500 Respiratory Rate 18 /min Anderson Ceja LPN [facility] Work Phone: Comment on above: Pattern: Unlabored 12-15-2018 06:53-0500 SaO2% (BldA) [Mass fraction] 97 % Anderson Ceja LPN [facility]; [facility] Work Phone: Comment on above: Room air 12-15-2018 06:53-0500 Weight 99.34 kg Lupe Calvo [facility] Work Phone: 09-09-2018 07:10-0400 BMI (Body Mass Index) 38.79 kg/m2 Janay Murry RN Comprehens [facility] Work Phone: 09-09-2018 07:10-0400 Body Temperature 96.4 [degF] Janay Murry RN [facility] Work Phone: Comment on above: Method: Temporal 09-09-2018 07:10-0400 Body weight 99.34 kg Janay Murry RN [facility] Work Phone: 09-09-2018 07:10-0400 BP Diastolic 78 mm[Hg] Janay Murry RN [facility] Work Phone: Comment on above: Patient Position: Sitting; Cuff Location : Left Arm; Cuff Size: Standard 09-09-2018 07:10-0400 BP Systolic 134 mm[Hg] Janay Murry RN [facility] Work Phone: Comment on above: Patient Position: Sitting; Cuff Location : Left Arm; Cuff Size: Standard 09-09-2018 07:10-0400 BSA (Body Surface Area) 2.01 m2 Janay Murry RN Comprehe ns[facility] Work Phone: 09-09-2018 07:10-0400 Height 160.02 cm Janay Murry RN [facility] Work Phone: 09-09-2018 07:10-0400 Pulse (Heart Rate) 72 /min Janay Murry RN [facility] Work Phone: Comment on above: Pattern: Regular 09-09-2018 07:10-0400 Pulse Oximetry 97 % Lupe Calvo [facility] Work Phone: Comment on above: Room air 09-09-2018 07:10-0400 Respiratory Rate 16 /min Janay Murry RN [facility] Work Phone: Comment on above: Pattern: Unlabored 09-09-2018 07:10-0400 SaO2% (BldA) [Mass fraction] 97 % Janay Murry RN [facility]; [facility] Work Phone: Comment on above: Room air 09-09-2018 07:10-0400 Weight 99.34 kg Lupe Rosson [facility] Work Phone: 08-24-2018 08:15-0400 BMI (Body Mass Index) 39.06 kg/m2 Barbi Clements RN [facility] Work Phone: 08-24-2018 08:15-0400 Body Temperature 97.6 [degF] Barbi Clements RN [facility] Work Phone: Comment on above: Method: Temporal 08-24-2018 08:15-0400 Body weight 100.02 kg Barib Clements RN [facility] Work Phone: 08-24-2018 08:15-0400 BP Diastolic 90 mm[Hg] Barbi Clements RN [facility] Work Phone: Comment on above: Patient Position: Sitting; Cuff Location : Left Arm; Cuff Size: Large 08-24-2018 08:15-0400 BP Systolic 134 mm[Hg] Barbi Clements RN [facility] Work Phone: Comment on above: Patient Position: Sitting; Cuff Location : Left Arm; Cuff Size: Large 08-24-2018 08:15-0400 BSA (Body Surface Area) 2.02 m2 Barbi Clements RN [facility] Work Phone: 08-24-2018 08:15-0400 Height 160.02 cm Barbi Messenger RN [facility] Work Phone: 08-24-2018 08:15-0400 Pulse (Heart Rate) 73 /min Barbi Clements RN [facility] Work Phone: Comment on above: Pattern: Regular 08-24-2018 08:15-0400 Pulse Oximetry 94 % Lupe Calvo [facility] Work Phone: Comment on above: Room air 08-24-2018 08:15-0400 Respiratory Rate 18 /min Barbi Clements RN [facility] Work Phone: Comment on above: Pattern: Unlabored 08-24-2018 08:15-0400 SaO2% (BldA) [Mass fraction] 94 % Barbi Clements RN [facility]; [facility] Work Phone: Comment on above: Room air 08-24-2018 08:15-0400 Weight 100.02 kg Lupe Calvo [facility] Work Phone: 05-05-2018 07:01-0400 BMI (Body Mass Index) 40.94 kg/m2 Barbi Clements RN [facility] Work Phone: 05-05-2018 07:01-0400 Body weight 104.84 kg Barbi Clements RN [facility] Work Phone: 05-05-2018 07:01-0400 BP Diastolic 72 mm[Hg] Barbi Clements RN [facility] Work Phone: Comment on above: Patient Position: Sitting; Cuff Location : Left Arm; Cuff Size: Large 05-05-2018 07:01-0400 BP Systolic 128 mm[Hg] Barbi Clements RN [facility] Work Phone: Comment on above: Patient Position: Sitting; Cuff Location : Left Arm; Cuff Size: Large 05-05-2018 07:01-0400 BSA (Body Surface Area) 2.06 m2 Barbi Clements RN [facility] Work Phone: 05-05-2018 07:01-0400 Height 160.02 cm Barbi Clements RN [facility] Work Phone: 05-05-2018 07:01-0400 Pulse (Heart Rate) 62 /min Barbi Clements RN [facility] Work Phone: Comment on above: Pattern: Regular 05-05-2018 07:01-0400 Pulse Oximetry 97 % Lupe Rosson [facility] Work Phone: Comment on above: Room air 05-05-2018 07:01-0400 Respiratory Rate 18 /min Barbi Clements RN [facility] Work Phone: Comment on above: Pattern: Unlabored 05-05-2018 07:01-0400 SaO2% (BldA) [Mass fraction] 97 % Barbi Clements RN [facility]; [facility] Work Phone: Comment on above: Room air 05-05-2018 07:01-0400 Weight 104.84 kg Lupe Calvo [facility] Work Phone: 12-30-2017 07:08-0500 BMI (Body Mass Index) 39.24 kg/m2 Yesy Lynens [facility] Work Phone: 12-30-2017 07:08-0500 Body weight 100.47 kg Yesy Ceja [facility] Work Phone: 12-30-2017 07:08-0500 BP Diastolic 78 mm[Hg] Yesy Ceja [facility] Work Phone: Comment on above: Patient Position: Sitting; Cuff Location : Left Arm; Cuff Size: Standard 12-30-2017 07:08-0500 BP Systolic 126 mm[Hg] Yesy Ceja [facility] Work Phone: Comment on above: Patient Position: Sitting; Cuff Location : Left Arm; Cuff Size: Standard 12-30-2017 07:08-0500 BSA (Body Surface Area) 2.02 m2 Yeys Lyne [facility] Work Phone: 12-30-2017 07:08-0500 Height 160.02 cm Yesy Ceja [facility] Work Phone: 12-30-2017 07:08-0500 Pulse (Heart Rate) 78 /min Yesy Ceja [facility] Work Phone: Comment on above: Pattern: Regular 12-30-2017 07:08-0500 Pulse Oximetry 99 % Lupe Calvo [facility] Work Phone: Comment on above: Room air 12-30-2017 07:08-0500 Respiratory Rate 18 /min Yesy Ceja [facility] Work Phone: Comment on above: Pattern: Unlabored 12-30-2017 07:08-0500 SaO2% (BldA) [Mass fraction] 99 % Yesylorenzo Ceja [facility]; [facility] Work Phone: Comment on above: Room air 12-30-2017 07:08-0500 Weight 100.47 kg Lupe Calvo [facility] Work Phone: 12-06-2017 15:40-0500 BMI (Body Mass Index) 39.24 kg/m2 Hayley Slarb [employer] [facility]prehen [facility] Work Phone: 12-06-2017 15:40-0500 Body Temperature 97.2 [degF] Hayley Slarb [employer] [facility] Work Phone: 12-06-2017 15:40-0500 Body weight 100.47 kg Hayley Slarb [employer] [facility] Work Phone: 12-06-2017 15:40-0500 BP Diastolic 78 mm[Hg] Hayley Slarb [employer] [facility] Work Phone: Comment on above: Patient Position: Sitting; Cuff Location : Left Arm; Cuff Size: Standard 12-06-2017 15:40-0500 BP Systolic 134 mm[Hg] Hayley Slarb [employer] [facility] Work Phone: Comment on above: Patient Position: Sitting; Cuff Location : Left Arm; Cuff Size: Standard 12-06-2017 15:40-0500 BSA (Body Surface Area) 2.02 m2 Hayley Slarb [employer] Compreh ensive [facility] Medicine Work Phone: 12-06-2017 15:40-0500 Height 160.02 cm Hayley Slarb [employer] [facility] Work Phone: 12-06-2017 15:40-0500 Pulse (Heart Rate) 94 /min Hayley Slarb [employer] Comprehensiv e Internal Medicine Work Phone: Comment on above: Pattern: Regular 12-06-2017 15:40-0500 Pulse Oximetry 96 % Lupe Calvo [facility] Work Phone: Comment on above: Room air 12-06-2017 15:40-0500 Respiratory Rate 18 /min Hayley Perez SALOME [facility] Work Phone: Comment on above: Pattern: Unlabored 12-06-2017 15:40-0500 SaO2% (BldA) [Mass fraction] 96 % Hayley Perez [employer] [facility]; [facility] Work Phone: Comment on above: Room air 12-06-2017 15:40-0500 Weight 100.47 kg Lupe Calvo [facility] Work Phone: 12-03-2017 11:52-0500 BMI (Body Mass Index) 39.24 kg/m2 Yesy Michael [facility] Work Phone: 12-03-2017 11:52-0500 Body weight 100.47 kg Yesy Ceja [facility] Work Phone: 12-03-2017 11:52-0500 BP Diastolic 76 mm[Hg] Yesy Ceja [facility] Work Phone: Comment on above: Patient Position: Sitting; Cuff Location : Left Arm; Cuff Size: Standard 12-03-2017 11:52-0500 BP Systolic 132 mm[Hg] Yesy Ceja [facility] Work Phone: Comment on above: Patient Position: Sitting; Cuff Location : Left Arm; Cuff Size: Standard 12-03-2017 11:52-0500 BSA (Body Surface Area) 2.02 m2 Yesy Clark ns[facility] Work Phone: 12-03-2017 11:52-0500 Height 160.02 cm Yesy Ceja [facility] Work Phone: 12-03-2017 11:52-0500 Pulse (Heart Rate) 63 /min Yesy Ceja [facility] Work Phone: Comment on above: Pattern: Regular 12-03-2017 11:52-0500 Pulse Oximetry 97 % Lupe Calvo [facility] Work Phone: Comment on above: Room air 12-03-2017 11:52-0500 Respiratory Rate 18 /min Yesy Marcial [facility] Work Phone: Comment on above: Pattern: Unlabored 12-03-2017 11:52-0500 SaO2% (BldA) [Mass fraction] 97 % Yesy Ceja [facility]; [facility] Work Phone: Comment on above: Room air 12-03-2017 11:52-0500 Weight 100.47 kg Lupe Calvo [facility] Work Phone: 09-24-2017 07:02-0400 BMI (Body Mass Index) 39.24 kg/m2 Barbi Clements RN [facility] Work Phone: 09-24-2017 07:02-0400 Body weight 100.47 kg Barbi Clements RN [facility] Work Phone: 09-24-2017 07:02-0400 BP Diastolic 82 mm[Hg] Barbi Clements RN [facility] Work Phone: Comment on above: Patient Position: Sitting; Cuff Location : Left Arm; Cuff Size: Large 09-24-2017 07:02-0400 BP Systolic 124 mm[Hg] Barbi Clements RN [facility] Work Phone: Comment on above: Patient Position: Sitting; Cuff Location : Left Arm; Cuff Size: Large 09-24-2017 07:02-0400 BSA (Body Surface Area) 2.02 m2 Barbi Clements RN [facility] Work Phone: 09-24-2017 07:02-0400 Height 160.02 cm Barbi Clements RN [facility] Work Phone: 09-24-2017 07:02-0400 Pulse (Heart Rate) 68 /min Barbi Clements RN [facility] Work Phone: Comment on above: Pattern: Regular 09-24-2017 07:02-0400 Pulse Oximetry 97 % Lupe Calvo [facility] Work Phone: Comment on above: Room air 09-24-2017 07:02-0400 Respiratory Rate 18 /min Barbi Clements RN [facility] Work Phone: Comment on above: Pattern: Unlabored 09-24-2017 07:02-0400 SaO2% (BldA) [Mass fraction] 97 % Barbi Clements RN [facility]; [facility] Work Phone: Comment on above: Room air 09-24-2017 07:02-0400 Weight 100.47 kg Lupe Calvo [facility] Work Phone: 05-20-2017 08:27-0400 BMI (Body Mass Index) 39.24 kg/m2 Barbi Clements RN [facility] Work Phone: 05-20-2017 08:27-0400 Body weight 100.47 kg Barbi Clements RN [facility] Work Phone: 05-20-2017 08:27-0400 BP Diastolic 70 mm[Hg] Barbi Clements RN [facility] Work Phone: Comment on above: Patient Position: Sitting; Cuff Location : Left Arm; Cuff Size: Large 05-20-2017 08:27-0400 BP Systolic 126 mm[Hg] Barbi Clements RN [facility] Work Phone: Comment on above: Patient Position: Sitting; Cuff Location : Left Arm; Cuff Size: Large 05-20-2017 08:27-0400 BSA (Body Surface Area) 2.02 m2 Barbi Clements RN [facility] Work Phone: 05-20-2017 08:27-0400 Height 160.02 cm Barbi Clements RN [facility] Work Phone: 05-20-2017 08:27-0400 Pulse (Heart Rate) 69 /min Barbi Clements RN [facility] Work Phone: Comment on above: Pattern: Regular 05-20-2017 08:27-0400 Pulse Oximetry 97 % Lupe Calvo [facility] Work Phone: Comment on above: Room air 05-20-2017 08:27-0400 Respiratory Rate 18 /min Barbi Clements RN [facility] Work Phone: Comment on above: Pattern: Unlabored 05-20-2017 08:27-0400 SaO2% (BldA) [Mass fraction] 97 % Barbi Clements RN [facility]; [facility] Work Phone: Comment on above: Room air 05-20-2017 08:27-0400 Weight 100.47 kg Lupe Calvo [facility] Work Phone: 01-14-2017 08:28-0500 BMI (Body Mass Index) 39.7 kg/m2 Barbi Clements RN [facility] Work Phone: 01-14-2017 08:28-0500 Body weight 101.66 kg Barbi Clements RN [facility] Work Phone: 01-14-2017 08:28-0500 BP Diastolic 84 mm[Hg] Barbi Clements RN [facility] Work Phone: Comment on above: Patient Position: Sitting; Cuff Location : Left Arm; Cuff Size: Large 01-14-2017 08:28-0500 BP Systolic 128 mm[Hg] Barbi Clements RN [facility] Work Phone: Comment on above: Patient Position: Sitting; Cuff Location : Left Arm; Cuff Size: Large 01-14-2017 08:28-0500 BSA (Body Surface Area) 2.03 m2 Barbi Clements RN [facility] Work Phone: 01-14-2017 08:28-0500 Height 160.02 cm Barbi Clements RN [facility] Work Phone: 01-14-2017 08:28-0500 Pulse (Heart Rate) 72 /min Barbi Clements RN [facility] Work Phone: Comment on above: Pattern: Regular 01-14-2017 08:28-0500 Pulse Oximetry 97 % Lupe Calvo [facility] Work Phone: Comment on above: Room air 01-14-2017 08:28-0500 Respiratory Rate 18 /min Barbi Clements RN [facility] Work Phone: Comment on above: Pattern: Unlabored 01-14-2017 08:28-0500 SaO2% (BldA) [Mass fraction] 97 % Barbi Clements RN [facility]; [facility] Work Phone: Comment on above: Room air 01-14-2017 08:28-0500 Weight 101.66 kg Lupe Calvo [facility] Work Phone: 01-11-2017 09:08-0500 BMI (Body Mass Index) 39.68 kg/m2 Bibiana Shay [facility] Internal [facility] Work Phone: 01-11-2017 09:08-0500 Body Temperature 98.9 [degF] Bibiana Shay [facility] Work Phone: Comment on above: Method: Temporal 01-11-2017 09:08-0500 Body weight 101.61 kg Bibiana Shay [facility] Work Phone: 01-11-2017 09:08-0500 BP Diastolic 70 mm[Hg] Bibiana Shay [facility] Work Phone: Comment on above: Patient Position: Sitting; Cuff Location : Left Arm; Cuff Size: Standard 01-11-2017 09:08-0500 BP Systolic 136 mm[Hg] Bibiana Shay [facility] Work Phone: Comment on above: Patient Position: Sitting; Cuff Location : Left Arm; Cuff Size: Standard 01-11-2017 09:08-0500 BSA (Body Surface Area) 2.03 m2 Bibiana Shay [facility] Work Phone: 01-11-2017 09:08-0500 Height 160.02 cm Bibiana Shay [facility] Work Phone: 01-11-2017 09:08-0500 Pulse (Heart Rate) 75 /min Bibiana Shay [facility] Work Phone: Comment on above: Pattern: Regular 01-11-2017 09:08-0500 Pulse Oximetry 95 % Lupe Calvo [facility] Work Phone: Comment on above: Room air 01-11-2017 09:08-0500 Respiratory Rate 16 /min Bibiana Shay [employer] [facility] Work Phone: Comment on above: Pattern: Unlabored 01-11-2017 09:08-0500 SaO2% (BldA) [Mass fraction] 95 % Bibiana Shay [facility]; [facility] Work Phone: Comment on above: Room air 01-11-2017 09:08-0500 Weight 101.61 kg Lupe Umesh [facility] Work Phone: 09-09-2016 09:15-0400 BMI (Body Mass Index) 39.68 kg/m2 Janay Murry RN Comprehens [facility] Work Phone: 09-09-2016 09:15-0400 Body Temperature 98 [degF] Janay Murry RN [facility] Work Phone: Comment on above: Method: Temporal 09-09-2016 09:15-0400 Body weight 101.61 kg Janay Murry RN [facility] Work Phone: 09-09-2016 09:15-0400 BP Diastolic 82 mm[Hg] Janay Murry RN [facility] Work Phone: Comment on above: Patient Position: Sitting; Cuff Location : Left Arm; Cuff Size: Standard 09-09-2016 09:15-0400 BP Systolic 148 mm[Hg] Janay Murry RN [facility] Work Phone: Comment on above: Patient Position: Sitting; Cuff Location : Left Arm; Cuff Size: Standard 09-09-2016 09:15-0400 BSA (Body Surface Area) 2.03 m2 Janay Murry RN Comprehe nsive Internal Medicine Work Phone: 09-09-2016 09:15-0400 Height 160.02 cm Janay Murry RN [facility] Work Phone: 09-09-2016 09:15-0400 Pulse (Heart Rate) 78 /min Janay Murry RN [facility] Work Phone: Comment on above: Pattern: Regular 09-09-2016 09:15-0400 Pulse Oximetry 97 % Lupe Rosson [facility] Work Phone: Comment on above: Room air 09-09-2016 09:15-0400 Respiratory Rate 16 /min Janay Murry RN [facility] Work Phone: Comment on above: Pattern: Unlabored 09-09-2016 09:15-0400 SaO2% (BldA) [Mass fraction] 97 % Janay Murry RN [facility]; [facility] Work Phone: Comment on above: Room air 09-09-2016 09:15-0400 Weight 101.61 kg Lupe Calvo [facility] Work Phone: 04-03-2016 08:20-0400 BMI (Body Mass Index) 40.39 kg/m2 BEN Willis LPN [facility] Work Phone: 04-03-2016 08:20-0400 Body Temperature 97.3 [degF] BEN Willis LPN [facility] Work Phone: Comment on above: Method: Temporal 04-03-2016 08:20-0400 Body weight 103.42 kg BEN Willis LPN [facility] Work Phone: 04-03-2016 08:20-0400 BP Diastolic 80 mm[Hg] BEN Willis LPN [facility] Work Phone: Comment on above: Patient Position: Sitting; Cuff Location : Left Arm; Cuff Size: Large 04-03-2016 08:20-0400 BP Systolic 124 mm[Hg] BEN Willis LPN [facility] Work Phone: Comment on above: Patient Position: Sitting; Cuff Location : Left Arm; Cuff Size: Large 04-03-2016 08:20-0400 BSA (Body Surface Area) 2.04 m2 BEN Willis LPN [facility] Work Phone: 04-03-2016 08:20-0400 Height 160.02 cm BEN Willis LPN [facility] Work Phone: 04-03-2016 08:20-0400 Pulse (Heart Rate) 80 /min BEN Willis LPN [facility] Work Phone: Comment on above: Pattern: Regular 04-03-2016 08:20-0400 Pulse Oximetry 98 % Lupe Calvo [facility] Work Phone: Comment on above: Room air 04-03-2016 08:20-0400 Respiratory Rate 20 /min BEN Willis LPN [facility] Work Phone: Comment on above: Pattern: Unlabored 04-03-2016 08:20-0400 SaO2% (BldA) [Mass fraction] 98 % BEN Willis LPN [facility]; [facility] Work Phone: Comment on above: Room air 04-03-2016 08:20-0400 Weight 103.42 kg Lupe Calvo [facility] Work Phone: 10-08-2015 08:37-0500 BMI (Body Mass Index) 40.03 kg/m2 [facility] Work [facility]: 10-08-2015 08:37-0500 Body Temperature 97.4 [degF] [facility] Work Phone: Comment on above: Method: Oral 10-08-2015 08:37-0500 Body weight 102.51 kg [facility] Work Phone: 10-08-2015 08:37-0500 BP Diastolic 72 mm[Hg] [facility] Work Phone: Comment on above: Patient Position: Sitting; Cuff Location : Left Arm; Cuff Size: Standard 10-08-2015 08:37-0500 BP Systolic 128 mm[Hg] [facility] Work Phone: Comment on above: Patient Position: Sitting; Cuff Location : Left Arm; Cuff Size: Standard 10-08-2015 08:37-0500 BSA (Body Surface Area) 2.04 m2 [facility] Work Phone: 10-08-2015 08:37-0500 Height 160.02 cm [facility] Work Phone: 10-08-2015 08:37-0500 Pulse (Heart Rate) 75 /min Bibiana Shay [facility] Work Phone: Comment on above: Pattern: Regular 10-08-2015 08:37-0500 Pulse Oximetry 96 % Lupe Calvo [facility] Work Phone: Comment on above: Room air 10-08-2015 08:37-0500 Respiratory Rate 16 /min Bibiana Shay [facility] Work Phone: Comment on above: Pattern: Unlabored 10-08-2015 08:37-0500 SaO2% (BldA) [Mass fraction] 96 % Bibiana Shay [facility]; [facility] Work Phone: Comment on above: Room air 10-08-2015 08:37-0500 Weight 102.51 kg Lupe Calvo [facility] Work Phone: 09-20-2015 08:43-0400 BMI (Body Mass Index) 40.03 kg/m2 Kelly Mercedes MD Work Phone: [facility] Work Phone: 09-20-2015 08:43-0400 Body Temperature 97.6 [degF] Kelly Mercedes MD Work Phone: [facility] Work Phone: Comment on above: Method: Temporal 09-20-2015 08:43-0400 Body weight 102.51 kg Kelly Mercedes MD Work Phone: [facility] Work Phone: 09-20-2015 08:43-0400 BP Diastolic 90 mm[Hg] Kelly Mercedes MD Work Phone: [facility] Work Phone: Comment on above: Patient Position: Sitting; Cuff Location : Left Arm; Cuff Size: Standard 09-20-2015 08:43-0400 BP Systolic 144 mm[Hg] Kelly Mercedes MD Work Phone: [facility] Work Phone: Comment on above: Patient Position: Sitting; Cuff Location : Left Arm; Cuff Size: Standard 09-20-2015 08:43-0400 BSA (Body Surface Area) 2.04 m2 Kelly Roque Work Phone: [facility] Work Phone: 09-20-2015 08:43-0400 Height 160.02 cm Kelly Mercedes MD Work Phone: [facility] Work Phone: 09-20-2015 08:43-0400 Pulse (Heart Rate) 74 /min Kelly Mercedes MD Work Phone: [facility] Work Phone: Comment on above: Pattern: Regular 09-20-2015 08:43-0400 Pulse Oximetry 98 % Lupe Calvo [facility] Internal Medicine Work Phone: Comment on above: Room air 09-20-2015 08:43-0400 Respiratory Rate 18 /min Kelly Mercedes MD Work Phone: [facility] Work Phone: Comment on above: Pattern: Unlabored 09-20-2015 08:43-0400 SaO2% (BldA) [Mass fraction] 98 % Kelly Mercedes MD Work Phone: [facility]; [facility] Work Phone: Comment on above: Room air 09-20-2015 08:43-0400 Weight 102.51 kg Lupe Calvo [facility] Internal Medicine Work Phone: 05-10-2015 09:14-0400 BMI (Body Mass Index) 40.39 kg/m2 Hayley Perez LPN [facility] Internal Medicine Work Phone: 05-10-2015 09:14-0400 Body Temperature 97.8 [degF] Hayley Perez LPN [facility] Work Phone: 05-10-2015 09:14-0400 Body weight 103.42 kg Hayley Perez LPN [facility] Work Phone: 05-10-2015 09:14-0400 BP Diastolic 90 mm[Hg] Hayley Slarb [employer] [facility] Work Phone: Comment on above: Patient Position: Sitting; Cuff Location : Left Arm; Cuff Size: Standard 05-10-2015 09:14-0400 BP Systolic 190 mm[Hg] Hayley Slarb [employer] [facility] Work Phone: Comment on above: Patient Position: Sitting; Cuff Location : Left Arm; Cuff Size: Standard 05-10-2015 09:14-0400 BSA (Body Surface Area) 2.04 m2 Hayley oMnetrb [employer] Compre[facility] Internal Medicine Work Phone: 05-10-2015 09:14-0400 Height 160.02 cm Hayley Monetrb [employer] [facility] Work Phone: 05-10-2015 09:14-0400 Pulse (Heart Rate) 75 /min Hayley Monetrb [employer] Comprehens[facility] e Internal Medicine Work Phone: Comment on above: Pattern: Regular 05-10-2015 09:14-0400 Pulse Oximetry 95 % Lupe Calvo [facility] Work Phone: Comment on above: Room air 05-10-2015 09:14-0400 Respiratory Rate 16 /min Hayley Monetrb [employer] [facility] Work Phone: Comment on above: Pattern: Unlabored 05-10-2015 09:14-0400 SaO2% (BldA) [Mass fraction] 95 % Hayley Slarb [employer] [facility]; [facility] Work Phone: Comment on above: Room air 05-10-2015 09:14-0400 Weight 103.42 kg Lupe Umesh [facility] Work Phone: 09-01-2013 07:01-0400 BMI (Body Mass Index) 44.03 kg/m2 Barbi Clements RN [facility] Work Phone: 09-01-2013 07:01-0400 Body Temperature 98.1 [degF] aBrbi Clements RN [facility] Work Phone: Comment on above: Method: Oral 09-01-2013 07:01-0400 Body weight 112.75 kg Barbi Clements RN [facility] Work Phone: 09-01-2013 07:01-0400 BP Diastolic 80 mm[Hg] Barbi Clements RN [facility] Work Phone: Comment on above: Patient Position: Sitting; Cuff Location : Left Arm; Cuff Size: Large 09-01-2013 07:01-0400 BP Systolic 122 mm[Hg] Barbi Clements RN [facility] Work Phone: Comment on above: Patient Position: Sitting; Cuff Location : Left Arm; Cuff Size: Large 09-01-2013 07:01-0400 BSA (Body Surface Area) 2.12 m2 Barbi Clements RN [facility] Work Phone: 09-01-2013 07:01-0400 Height 160.02 cm Barbi Clements RN [facility] Work Phone: 09-01-2013 07:01-0400 Pulse (Heart Rate) 58 /min Barbi Clements RN [facility] Work Phone: Comment on above: Pattern: Regular 09-01-2013 07:01-0400 Pulse Oximetry 98 % Lupe Calvo [facility] Work Phone: Comment on above: Room air 09-01-2013 07:01-0400 Respiratory Rate 20 /min Barbi Clements RN [facility] Work Phone: Comment on above: Pattern: Unlabored 09-01-2013 07:01-0400 SaO2% (BldA) [Mass fraction] 98 % Barbi Clements RN [facility]; [facility] Work Phone: Comment on above: Room air 09-01-2013 07:01-0400 Weight 112.75 kg Lupe Calvo [facility] Work Phone: 08-28-2013 08:00-0400 BMI (Body Mass Index) 44.03 kg/m2 Barbi Clements RN [facility] Work Phone: 08-28-2013 08:00-0400 Body Temperature 98.4 [degF] Barbi Clements RN [facility] Work Phone: Comment on above: Method: Oral 08-28-2013 08:00-0400 Body weight 112.75 kg Barbi Clements RN [facility] Work Phone: 08-28-2013 08:00-0400 BP Diastolic 78 mm[Hg] Barbi Clements RN [facility] Work Phone: Comment on above: Patient Position: Sitting; Cuff Location : Left Arm; Cuff Size: Large 08-28-2013 08:00-0400 BP Systolic 122 mm[Hg] Barbi Clements RN [facility] Work Phone: Comment on above: Patient Position: Sitting; Cuff Location : Left Arm; Cuff Size: Large 08-28-2013 08:00-0400 BSA (Body Surface Area) 2.12 m2 Barbi Clements RN [facility] Work Phone: 08-28-2013 08:00-0400 Height 160.02 cm Barbi Clements RN [facility] Work Phone: 08-28-2013 08:00-0400 Pulse (Heart Rate) 76 /min Barbi Clements RN [facility] Work Phone: Comment on above: Pattern: Regular 08-28-2013 08:00-0400 Pulse Oximetry 98 % Lupe Calvo [facility] Work Phone: Comment on above: Room air 08-28-2013 08:00-0400 Respiratory Rate 20 /min Barbi Clements RN [facility] Work Phone: Comment on above: Pattern: Unlabored 08-28-2013 08:00-0400 SaO2% (BldA) [Mass fraction] 98 % Barbi Clements RN [facility]; [facility] Work Phone: Comment on above: Room air 08-28-2013 08:00-0400 Weight 112.75 kg Lupe Calvo [facility] Work Phone: 08-25-2013 08:08-0400 BMI (Body Mass Index) 44.03 kg/m2 Barbi Clements RN [facility] Work Phone: 08-25-2013 08:08-0400 Body Temperature 98.1 [degF] Barbi Clements RN [facility] Work Phone: Comment on above: Method: Oral 08-25-2013 08:08-0400 Body weight 112.75 kg Barbi Clements RN [facility] Work Phone: 08-25-2013 08:08-0400 BP Diastolic 88 mm[Hg] Barbi Clements RN [facility] Work Phone: Comment on above: Patient Position: Sitting; Cuff Location : Left Arm; Cuff Size: Large 08-25-2013 08:08-0400 BP Systolic 138 mm[Hg] Barbi Clements RN [facility] Work Phone: Comment on above: Patient Position: Sitting; Cuff Location : Left Arm; Cuff Size: Large 08-25-2013 08:08-0400 BSA (Body Surface Area) 2.12 m2 Barbi Clements RN [facility] Work Phone: 08-25-2013 08:08-0400 Height 160.02 cm Barbi Clements RN [facility] Work Phone: 08-25-2013 08:08-0400 Pulse (Heart Rate) 43 /min Barbi Clements RN [facility] Work Phone: Comment on above: Pattern: Regular 08-25-2013 08:08-0400 Pulse Oximetry 91 % Lupe Calvo [facility] Work Phone: Comment on above: Room air 08-25-2013 08:08-0400 Respiratory Rate 20 /min Barbi Clements RN [facility] Work Phone: Comment on above: Pattern: Unlabored 08-25-2013 08:08-0400 SaO2% (BldA) [Mass fraction] 91 % Barbi Clements RN [facility]; [facility] Work Phone: Comment on above: Room air 08-25-2013 08:08-0400 Weight 112.75 kg Lupe Umesh [facility] Work Phone: 08-24-2013 06:58-0400 BMI (Body Mass Index) 44.03 kg/m2 Barbi Clements RN [facility] Work Phone: 08-24-2013 06:58-0400 Body Temperature 98.2 [degF] Barbi Clements RN [facility] Work Phone: Comment on above: Method: Oral 08-24-2013 06:58-0400 Body weight 112.75 kg Barbi Clements RN [facility] Work Phone: 08-24-2013 06:58-0400 BP Diastolic 82 mm[Hg] Barbi Clements RN [facility] Work Phone: Comment on above: Patient Position: Sitting; Cuff Location : Left Arm; Cuff Size: Large 08-24-2013 06:58-0400 BP Systolic 130 mm[Hg] Barbi Clements RN [facility] Work Phone: Comment on above: Patient Position: Sitting; Cuff Location : Left Arm; Cuff Size: Large 08-24-2013 06:58-0400 BSA (Body Surface Area) 2.12 m2 Barbi Clements RN [facility] Work Phone: 08-24-2013 06:58-0400 Height 160.02 cm Barbi Clements RN [facility] Work Phone: 08-24-2013 06:58-0400 Pulse (Heart Rate) 60 /min Barbi Clements RN [facility] Work Phone: Comment on above: Pattern: Regular 08-24-2013 06:58-0400 Respiratory Rate 20 /min Barbi Clements RN [facility] Work Phone: Comment on above: Pattern: Unlabored 08-24-2013 06:58-0400 Weight 112.75 kg Lupe Calvo [facility] Work Phone: 08-23-2013 08:14-0400 BMI (Body Mass Index) 44.03 kg/m2 Barbi Clements RN [facility] Work Phone: 08-23-2013 08:14-0400 Body Temperature 97.4 [degF] Barbi Clements RN [facility] Work Phone: Comment on above: Method: Oral 08-23-2013 08:14-0400 Body weight 112.75 kg Barbi Clements RN [facility] Work Phone: 08-23-2013 08:14-0400 BP Diastolic 80 mm[Hg] Barbi Clements RN [facility] Work Phone: Comment on above: Patient Position: Sitting; Cuff Location : Left Arm; Cuff Size: Large 08-23-2013 08:14-0400 BP Systolic 138 mm[Hg] Barbi Clements RN [facility] Work Phone: Comment on above: Patient Position: Sitting; Cuff Location : Left Arm; Cuff Size: Large 08-23-2013 08:14-0400 BSA (Body Surface Area) 2.12 m2 Barbi Clements RN [facility] Work Phone: 08-23-2013 08:14-0400 Height 160.02 cm Barbi Clements RN [facility] Work Phone: 08-23-2013 08:14-0400 Pulse (Heart Rate) 60 /min Barbi Clements RN [facility] Work Phone: Comment on above: Pattern: Regular 08-23-2013 08:14-0400 Respiratory Rate 20 /min Barbi Clements RN [facility] Work Phone: Comment on above: Pattern: Unlabored 08-23-2013 08:14-0400 Weight 112.75 kg Lupe Calvo [facility] Work Phone: 08-22-2013 07:59-0400 BMI (Body Mass Index) 44.91 kg/m2 Marci Pardo LPN [facility] Work Phone: 08-22-2013 07:59-0400 Body Temperature 97.8 [degF] Marci Pardo LPN [facility] Work Phone: Comment on above: Method: Oral 08-22-2013 07:59-0400 Body weight 114.99 kg Marci Pardo LPN [facility] Work Phone: 08-22-2013 07:59-0400 BP Diastolic 82 mm[Hg] Marci Pardo LPN [facility] Work Phone: Comment on above: Patient Position: Sitting; Cuff Location : Left Arm; Cuff Size: Standard 08-22-2013 07:59-0400 BP Systolic 138 mm[Hg] Marci Pardo LPN [facility] Work Phone: Comment on above: Patient Position: Sitting; Cuff Location : Left Arm; Cuff Size: Standard 08-22-2013 07:59-0400 BSA (Body Surface Area) 2.14 m2 Marci Pardo LPN [facility] Work Phone: 08-22-2013 07:59-0400 Height 160.02 cm Marci Pardo LPN [facility] Internal Medicine Work Phone: 08-22-2013 07:59-0400 Pulse (Heart Rate) 76 /min Marci Pardo LPN [facility] Work Phone: Comment on above: Pattern: Regular 08-22-2013 07:59-0400 Pulse Oximetry 98 % Lupe Calvo [facility] Internal Medicine Work Phone: Comment on above: Room air 08-22-2013 07:59-0400 Respiratory Rate 17 /min Marci Pardo LPN [facility] Work Phone: Comment on above: Pattern: Unlabored 08-22-2013 07:59-0400 SaO2% (BldA) [Mass fraction] 98 % Marci Pardo LPN [facility] Internal Medicine; [facility] Work Phone: Comment on above: Room air 08-22-2013 07:59-0400 Weight 114.99 kg Lupe Calvo [facility] Internal Medicine Work Phone: 08-21-2013 13:39-0400 BMI (Body Mass Index) 44.91 kg/m2 Marci Pardo LPN [facility] Work Phone: 08-21-2013 13:39-0400 Body Temperature 98.7 [degF] Marci Pardo LPN [facility] Work Phone: Comment on above: Method: Oral 08-21-2013 13:39-0400 Body weight 114.99 kg Marci Pardo LPN [facility] Work Phone: 08-21-2013 13:39-0400 BP Diastolic 86 mm[Hg] Marci Pardo LPN [facility] Work Phone: Comment on above: Patient Position: Sitting; Cuff Location : Left Arm; Cuff Size: Standard 08-21-2013 13:39-0400 BP Systolic 144 mm[Hg] Marci Pardo LPN [facility] Internal Medicine Work Phone: Comment on above: Patient Position: Sitting; Cuff Location : Left Arm; Cuff Size: Standard 08-21-2013 13:39-0400 BSA (Body Surface Area) 2.14 m2 Marci Pardo LPN [facility] Internal Medicine Work Phone: 08-21-2013 13:39-0400 Height 160.02 cm Marci Pardo LPN [facility] Internal Medicine Work Phone: 08-21-2013 13:39-0400 Pulse (Heart Rate) 80 /min Marci Pardo LPN [facility] Internal Medicine Work Phone: Comment on above: Pattern: Regular 08-21-2013 13:39-0400 Respiratory Rate 16 /min Marci Pardo LPN [facility] Internal Medicine Work Phone: Comment on above: Pattern: Unlabored 08-21-2013 13:39-0400 Weight 114.99 kg Lupe Calvo [facility] Internal Medicine Work Phone: 06-30-2013 08:25-0400 BMI (Body Mass Index) 44.91 kg/m2 Marci Pardo [employer] [facility] Internal Medicine Work Phone: Comment on above: I have been off the bp meds for 2 days 06-30-2013 08:25-0400 Body Temperature 98.3 [degF] Marci Pardo [employer] [facility] Internal Medicine Work Phone: Comment on above: Method: Oral I have been off th e bp meds for 2 days 06-30-2013 08:25-0400 Body weight 114.99 kg Marci Pardo [employer] [facility] Internal Medicine Work Phone: Comment on above: I have been off the bp meds for 2 days 06-30-2013 08:25-0400 BP Diastolic 84 mm[Hg] Marci Pardo [facility] Internal Medicine Work Phone: Comment on above: Patient Position: Sitting; Cuff Location : Left Arm; Cuff Size: Standard I have been off th e bp meds for 2 days 06-30-2013 08:25-0400 BP Systolic 140 mm[Hg] Marci Edvin MCMAHON [facility] Internal Medicine Work Phone: Comment on above: Patient Position: Sitting; Cuff Location : Left Arm; Cuff Size: Standard I have been off th e bp meds for 2 days 06-30-2013 08:25-0400 BSA (Body Surface Area) 2.14 m2 Marci Edvin MCMAHON [facility] Internal Medicine Work Phone: Comment on above: I have been off the bp meds for 2 days 06-30-2013 08:25-0400 Height 160.02 cm Marci Pardo LPN [facility] Internal Medicine Work Phone: Comment on above: I have been off the bp meds for 2 days 06-30-2013 08:25-0400 Pulse (Heart Rate) 66 /min aMrci Pardo LPN [facility] Internal Medicine Work Phone: Comment on above: Pattern: Regular I have been off th e bp meds for 2 days 06-30-2013 08:25-0400 Pulse Oximetry 96 % Lupe Umesh [facility] Internal Medicine Work Phone: Comment on above: Room air I have been off th e bp meds for 2 days 06-30-2013 08:25-0400 Respiratory Rate 16 /min Marci Pardo LPN [facility] Internal Medicine Work Phone: Comment on above: I have been off the bp meds for 2 days 06-30-2013 08:25-0400 SaO2% (BldA) [Mass fraction] 96 % Marci Pardo LPN [facility] Internal Medicine; [facility] Internal Medicine Work Phone: Comment on above: Room air I have been off th e bp meds for 2 days 06-30-2013 08:25-0400 Weight 114.99 kg Lupe Umesh [facility] Internal Medicine Work Phone: Comment on above: I have been off the bp meds for 2 days 03-28-2013 09:16-0400 BMI (Body Mass Index) 45.54 kg/m2 aMrci Pardo LPN [facility] Work Phone: 03-28-2013 09:16-0400 Body Temperature 98.1 [degF] Marci Pardo LPN [facility] Work Phone: Comment on above: Method: Oral 03-28-2013 09:16-0400 Body weight 116.6 kg Marci Pardo LPN [facility] Work Phone: 03-28-2013 09:16-0400 BP Diastolic 100 mm[Hg] Marci Pardo LPN [facility] Work Phone: Comment on above: Patient Position: Sitting; Cuff Location : Left Arm; Cuff Size: Standard 03-28-2013 09:16-0400 BP Systolic 150 mm[Hg] Marci Pardo LPN [facility] Work Phone: Comment on above: Patient Position: Sitting; Cuff Location : Left Arm; Cuff Size: Standard 03-28-2013 09:16-0400 BSA (Body Surface Area) 2.15 m2 Marci Pardo LPN [facility] Work Phone: 03-28-2013 09:16-0400 Height 160.02 cm Marci Pardo LPN [facility] Work Phone: 03-28-2013 09:16-0400 Pulse (Heart Rate) 74 /min Marci Pardo LPN [facility] Work Phone: Comment on above: Pattern: Regular 03-28-2013 09:16-0400 Respiratory Rate 17 /min Marci Pardo LPN [facility] Work Phone: 03-28-2013 09:16-0400 Weight 116.6 kg Lupe Calvo [facility] Work Phone: 02-07-2010 09:54-0500 Body Temperature 97.3 [degF] Vee Gonzalez RN [facility] Work Phone: Comment on above: Method: Oral 02-07-2010 09:54-0500 BP Diastolic 72 mm[Hg] Vee Gonzalez RN [facility] Work Phone: Comment on above: Patient Position: Sitting; Cuff Location : Left Arm; Cuff Size: Large 02-07-2010 09:54-0500 BP Systolic 124 mm[Hg] Vee Gonzalez RN [facility] Work Phone: Comment on above: Patient Position: Sitting; Cuff Location : Left Arm; Cuff Size: Large 02-07-2010 09:54-0500 Pulse (Heart Rate) 56 /min Vee Gonzalez RN [facility] Work Phone: Comment on above: Pattern: Regular 02-07-2010 09:54-0500 Respiratory Rate 20 /min Vee Gonzalez RN [facility] Work Phone: Comment on above: Pattern: Unlabored 01-22-2010 11:40-0500 Body Temperature 97.3 [degF] Marci Pardo LPN [facility] Work Phone: Comment on above: Method: Oral 01-22-2010 11:40-0500 BP Diastolic 72 mm[Hg] Marci Pardo LPN [facility] Work Phone: Comment on above: Patient Position: Sitting; Cuff Location : Left Arm; Cuff Size: Standard 01-22-2010 11:40-0500 BP Systolic 128 mm[Hg] Marci Edvin MCMAHON [facility] Work Phone: Comment on above: Patient Position: Sitting; Cuff Location : Left Arm; Cuff Size: Standard 01-22-2010 11:40-0500 Pulse (Heart Rate) 78 /min Marci Edvin MCMAHON [facility] Work Phone: Comment on above: Pattern: Regular 01-22-2010 11:40-0500 Respiratory Rate 16 /min Marci Edvin MCMAHON [facility] Work Phone: Comment on above: Pattern: Unlabored 07-25-2008 09:55-0400 Body Temperature 97.1 [degF] Silvia Cha [facility] Internal Medicine Work Phone: Comment on above: Method: Oral 07-25-2008 09:55-0400 Body weight 112.97 kg Silvia Cha [facility] Internal Medicine Work Phone: 07-25-2008 09:55-0400 BP Diastolic 72 mm[Hg] Silvia [facility] Internal Medicine Work Phone: Comment on above: Patient Position: Sitting; Cuff Location : Left Arm; Cuff Size: Large 07-25-2008 09:55-0400 BP Systolic 106 mm[Hg] Silvia [facility] Internal Medicine Work Phone: Comment on above: Patient Position: Sitting; Cuff Location : Left Arm; Cuff Size: Large 07-25-2008 09:55-0400 Head Circumference 0 cm Lupe Calvo [facility] Internal Medicine Work Phone: 07-25-2008 09:55-0400 Head Occipital-frontal circumference 0 cm Silvia [facility] Internal Medicine; [facility] Internal Medicine Work Phone: 07-25-2008 09:55-0400 Height 0 cm Silvia [facility] Internal Medicine Work Phone: 07-25-2008 09:55-0400 Pulse (Heart Rate) 74 /min Silvia [facility] Internal Medicine Work Phone: Comment on above: Pattern: Regular 07-25-2008 09:55-0400 Respiratory Rate 16 /min Silvia [facility] Internal Medicine Work Phone: Comment on above: Pattern: Unlabored 07-25-2008 09:55-0400 Weight 112.97 kg Lupe Calvo [facility] Internal Medicine Work Phone: 07-18-2008 09:06-0400 BMI (Body Mass Index) 45.59 kg/m2 Emmanuelle Chapa [facility] Internal Medicine Work Phone: 07-18-2008 09:06-0400 Body Temperature 97.1 [degF] Emmanuelle Chapa [facility] Internal Medicine Work Phone: Comment on above: Method: Undefined 07-18-2008 09:06-0400 Body weight 113.06 kg Emmanuelle Chapa [facility] Internal Medicine Work Phone: 07-18-2008 09:06-0400 BP Diastolic 74 mm[Hg] Emmanuelle Chapa [facility] Internal Medicine Work Phone: Comment on above: Patient Position: Sitting; Cuff Location : Left Arm; Cuff Size: Standard 07-18-2008 09:06-0400 BP Systolic 160 mm[Hg] Emmanuelle Chapa [facility] Internal Medicine Work Phone: Comment on above: Patient Position: Sitting; Cuff Location : Left Arm; Cuff Size: Standard 07-18-2008 09:06-0400 BSA (Body Surface Area) 2.1 m2 Emmanuelle Chapa [facility] Internal Medicine Work Phone: 07-18-2008 09:06-0400 Head Circumference 0 cm Lupe Calvo [facility] Internal Medicine Work Phone: 07-18-2008 09:06-0400 Head Occipital-frontal circumference 0 cm Emmanuelle Chapa [facility]; [facility] Work Phone: 07-18-2008 09:06-0400 Height 157.48 cm Emmanuelle Chapa [facility] Internal Medicine Work Phone: 07-18-2008 09:06-0400 Pulse (Heart Rate) 76 /min Emmanuelle Chapa [facility] Internal Medicine Work Phone: Comment on above: Pattern: Regular 07-18-2008 09:06-0400 Respiratory Rate 18 /min Emmanuelle Chapa [facility] Internal Medicine Work Phone: Comment on above: Pattern: Unlabored 07-18-2008 09:06-0400 Weight 113.06 kg Lupe Calvo [facility] Internal Medicine Work Phone: 07-04-2008 11:40-0400 BMI (Body Mass Index) 46.39 kg/m2 Barbi Clements RN [facility] Work Phone: 07-04-2008 11:40-0400 Body weight 113.2 kg Barbi Clements RN [facility] Work Phone: 07-04-2008 11:40-0400 BP Diastolic 78 mm[Hg] Barbi Clements RN [facility] Work Phone: Comment on above: Patient Position: Sitting; Cuff Location : Right Arm; Cuff Size: Standard 07-04-2008 11:40-0400 BP Systolic 162 mm[Hg] Barbi Clements RN [facility] Work Phone: Comment on above: Patient Position: Sitting; Cuff Location : Right Arm; Cuff Size: Standard 07-04-2008 11:40-0400 BSA (Body Surface Area) 2.09 m2 Barbi Clements RN [facility] Work Phone: 07-04-2008 11:40-0400 Head Circumference 0 cm Lupe Calvo [facility] Work Phone: 07-04-2008 11:40-0400 Head Occipital-frontal circumference 0 cm Barbi Clements RN [facility]; [facility] Work Phone: 07-04-2008 11:40-0400 Height 156.21 cm Barbi Clements RN [facility] Work Phone: 07-04-2008 11:40-0400 Pulse (Heart Rate) 80 /min Barbi Clements RN [facility] Work Phone: Comment on above: Pattern: Regular 07-04-2008 11:40-0400 Respiratory Rate 20 /min Barbi Clements RN [facility] Work Phone: Comment on above: Pattern: Unlabored 07-04-2008 11:40-0400 Weight 113.2 kg Lupe Calvo [facility] Work Phone: Encounters Encounter Date Encounter Type Care Provider Facility Start: 03-31-2025 End: 03-31-2025 ambulatory Lupe Umesh Facility:[facility] [place] Start: 11-14-2024 End: 11-14-2024 ambulatory Lupe Umesh Facility:[facility] – [place] Start: 11-07-2024 End: 11-07-2024 ambulatory Lupe Umesh Facility:[facility] Start: 07-06-2024 End: 07-06-2024 ambulatory Lupe Umesh Facility:[facility] – [place] Start: 07-30-2023 End: 07-30-2023 Office outpatient visit 15 minutes Lupe Umesh DO Work Phone: [facility] Start: 04-01-2023 ambulatory Lupe Umesh DO [facility] Start: 04-01-2023 End: 04-01-2023 Office outpatient visit 10 minutes Lupe Umesh DO Work Phone: [facility] Start: 03-15-2023 End: 03-15-2023 Office outpatient visit 15 minutes Lupe Umesh DO Work Phone: [facility] Start: 02-22-2023 End: 02-22-2023 Office outpatient visit 10 minutes Lupe Umesh DO Work Phone: [facility] Start: 02-08-2023 End: 02-08-2023 Office outpatient visit 15 minutes Lupe Umesh DO Work Phone: [facility] Start: 02-18-2022 End: 02-18-[address] [facility], [facility] Start: 02-13-2022 End: 02-13-[address] [facility], [place] Start: 02-11-2022 End: 02-11-[address] [facility], [place] Start: 12-03-2021 End: 12-03-2021 Office outpatient visit 10 minutes Lupe Umesh DO Work Phone: [facility] Start: 11-17-2021 End: 11-17-2021 Office outpatient visit 10 minutes Lupe Umesh DO Work Phone: [facility] Start: 10-29-2021 End: 10-29-2021 Office outpatient visit 10 minutes Lupe Umesh DO Work Phone: [facility] Start: 10-13-2021 End: 10-13-2021 Office outpatient visit 15 minutes Lupe Umesh DO Work Phone: [facility] Start: 09-29-2021 End: 09-29-2021 Office outpatient visit 25 minutes Lupe Umesh DO Work Phone: [facility] Start: 04-23-2021 End: 04-23-2021 Annotation/Addendum Lupe Umesh DO Work Phone: [facility] Start: 04-21-2021 End: 04-21-2021 Office outpatient visit 10 minutes Lupe Umesh DO Work Phone: [facility] Start: 04-16-2021 End: 04-16-2021 Lab Order Lupe Calvo DO Work Phone: [facility] Start: 04-04-2021 End: 04-07-2021 Office outpatient visit 5 minutes Lupe Umesh DO Work Phone: [facility] Start: 03-19-2021 End: 03-19-2021 Office outpatient visit 15 minutes Lupe Umesh DO Work Phone: [facility] Start: 03-19-2021 Review Lupe Rosso n DO Work Phone: [facility] Start: 03-05-2021 End: 03-05-2021 Office outpatient visit 10 minutes Lupe Umesh DO Work Phone: [facility] Start: 03-05-2021 Review Lupe Rosson [facility] Start: 02-20-2021 End: 02-20-2021 Office outpatient visit 10 minutes Lupe Calvo [facility] Start: 02-10-2021 End: 02-10-2021 Office outpatient visit 10 minutes Lupe Calvo [facility] Start: 01-15-2021 End: 01-15-2021 Office outpatient visit 10 minutes Lupe Calvo [facility] Start: 12-25-2020 End: 12-26-2020 Office outpatient visit 15 minutes Lupe Rosson [facility] Start: 12-09-2020 End: 12-09-2020 Patient encounter procedure Lupe Rosson DO Work Phone: [facility] Start: 12-09-2020 End: 12-09-2020 Periodic preventive med est patient 65yrs& older Lupe Umesh [facility] Start: 12-09-2020 Review Lupe Umesh [facility] Start: 10-16-2020 End: 10-16-2020 Phone Encounter Lupe Umesh [facility] Start: 10-16-2020 End: 10-16-2020 Office outpatient visit 25 minutes Lupe Umesh [facility] Start: 05-10-2019 End: 05-10-2019 Phone Encounter Lupe Umesh [facility] Start: 04-21-2019 End: 04-21-2019 Phone Encounter Lupe Umesh [facility] Start: 12-15-2018 End: 12-15-2018 Office outpatient visit 15 minutes Lupe Heck [facility] Start: 09-09-2018 End: 09-09-2018 Patient encounter procedure Lupe Calvo DO Work Phone: [facility] Start: 09-09-2018 End: 09-09-2018 Periodic preventive med est patient 65yrs& older Lupe Heck [facility] Start: 08-30-2018 End: 08-30-2018 Phone Encounter Lupe Heck [facility] Start: 08-24-2018 End: 08-24-2018 Office outpatient visit 40 minutes Lupe Heck [facility] Start: 05-05-2018 End: 05-05-2018 Office outpatient visit 25 minutes Lupe Heck [facility] Start: 12-30-2017 End: 12-30-2017 Office outpatient visit 25 minutes Lupe Heck [facility] Start: 12-06-2017 End: 12-06-2017 Office outpatient visit 15 minutes Lupe Calvo [facility] Start: 12-03-2017 End: 12-03-2017 Office outpatient visit 15 minutes Lupe Hekc [facility] Start: 09-24-2017 End: 09-24-2017 Phone Encounter Lupe Umesh [facility] Start: 09-24-2017 End: 09-24-2017 Office outpatient visit 15 minutes Lupe Heck [facility] Start: 05-20-2017 End: 05-20-2017 Office outpatient visit 15 minutes Lupe Heck [facility] Start: 01-14-2017 End: 01-14-2017 Office outpatient visit 25 minutes Lupe Heck [facility] Start: 01-11-2017 End: 01-11-2017 Office outpatient visit 15 minutes Lupe Calvo [facility] Start: 09-09-2016 End: 09-09-2016 Patient encounter Lupe Heck [facility] Start: 04-03-2016 End: 04-03-2016 Office outpatient visit 25 minutes Lupe Heck [facility] Start: 10-08-2015 End: 10-08-2015 Office outpatient visit 40 minutes Lupe Heck [facility] Start: 09-20-2015 End: 09-20-2015 Office outpatient visit 25 minutes Lupe Calvo [facility] Start: 05-10-2015 End: 05-10-2015 Error Encounter Lupe Calvo [facility] Start: 05-10-2015 End: 05-10-2015 Office outpatient visit 15 minutes Lupe Umesh [facility] Start: 09-01-2013 End: 09-01-2013 Patient encounter Lupe Calvo [facility] Start: 08-28-2013 End: 08-28-2013 Patient encounter Lupe Calvo [facility] Start: 08-25-2013 End: 08-25-2013 Patient encounter Lupe Calvo [facility] Start: 08-24-2013 End: 08-24-2013 Patient encounter Lupe Calvo [facility] Start: 08-23-2013 End: 08-23-2013 Patient encounter Lupe Calvo [facility] Start: 08-22-2013 End: 08-22-2013 Patient encounter Lupeyolanda Calvo [facility] Start: 08-21-2013 End: 08-21-2013 Office outpatient visit 25 minutes Lupe Calvo [facility] Start: 06-30-2013 End: 06-30-2013 Office outpatient visit 25 minutes Lupe Calvo [facility] Start: 03-28-2013 End: 03-28-2013 Office outpatient visit 15 minutes Lupe Calvo [facility] Start: 02-07-2010 End: 02-07-2010 Office outpatient visit 15 minutes Lupe Calvo [facility] Start: 01-22-2010 End: 01-22-2010 Office outpatient visit 10 minutes Lupe Heck [facility] Start: 07-25-2008 End: 07-25-2008 Office outpatient visit 25 minutes Lupe Calvo [facility] Start: 07-18-2008 End: 07-18-2008 Office outpatient new 30 minutes Lupe Calvo [facility] Start: 07-04-2008 End: 07-04-2008 Historical Summary Lupe Heck [facility] Start: 07-04-2008 End: 07-04-2008 Office outpatient new 20 minutes Lupe Calvo [facility] Patient encounter procedure [facility]; [facility] Work Phone: Patient encounter procedure [facility]; [facility] Work Phone: Patient encounter procedure Adelina Stauffer [facility]; [facility] Work Phone: Patient encounter procedure Hayley Perez [facility]; [facility] Work Phone: Patient encounter procedure Sabrina Conway [facility]; [facility] Work Phone: Patient encounter procedure Bibiana Shay [facility]; [facility] Work Phone: Patient encounter procedure Melonie Quezada [facility]; [facility] Work Phone: [facility] Work Phone: [facility]; [facility] Work Phone: Patient encounter procedure BEN Willis [facility]; [facility] Work Phone: Procedures Date Procedure Procedure Detail Performing Clinician Start: 02-18-2022 Computed tomography of abdomen and pelvis with contrast Start: 02-18-2022 End: 02-19-2022 CT Abd/Pelvis W/WO Contrast Comments: See Note; NOTES: [facility] Imaging Services [address] [place] [address] Abd/Pelvis W/WO Contrast MR#: [id number] Acct: [id number] Name: PARESH ALANIS Rep #: [id number] : 1950 F 71 From: Nikolai Penaloza MD PCP: Dr. Lupe Calvo, DO Status: REG CLI Study: CT Abd/Pelvis W/WO Contrast Date of Exam: 01/28 02/17 Exam# [id number] Ordering Dr: Jeanine Rae MD EXAM: CT ABDOMEN AND PELVIS WITHOUT AND WITH INTRAVENOUS CONTRAST CLINICAL INDICATION: GROSS HEMATURIA TECHNIQUE: Helically acquired images were obtained of the abdomen and pelvis without and with intravenous contrast. CTDIvol = ( 24.26 ) mGy, DLP = ( 4183.44 ) mGycm This CT exam was performed using one or more of the following dose reduction techniques: automated exposure control, adjustment of the mA and/or kV according to patient size, and/or use of iterative reconstruction technique. This report was created using Jem[employer] report generation technology. CONTRAST: IV 100mL Isovue-300 COMPARISON: 12/04/2017 FINDINGS: LOWER THORAX: Unremarkable. Lung bases are clear. No cardiomegaly. No significant pericardial effusion. ABDOMEN: LIVER: Unremarkable. Homogeneous. No focal mass. GALLBLADDER AND BILE DUCTS: Unremarkable. No calcified gallstones. No gallbladder distention or wall edema. No intra- or extrahepatic biliary ductal dilation. PANCREAS: Unremarkable. No focal cystic or solid mass. SPLEEN: Unremarkable. Normal size without focal cystic or solid mass. ADRENALS: Unremarkable. No nodules. KIDNEYS AND URETERS: Kidneys are unremarkable. Normal renal size and position. No hydronephrosis. STOMACH AND BOWEL: No inflammatory or obstructive changes of bowel. No focal inflammatory change. PELVIS: APPENDIX: Appendix is normal. BLADDER: Unremarkable. REPRODUCTIVE: Unremarkable as visualized. No mass. ABDOMEN and PELVIS: INTRAPERITONEAL SPACE: Unremarkable. No ascites or other fluid collection. No free air. BONES/JOINTS: Degenerative changes of the spine and pelvis. No suspicious lytic or blastic abnormality. SOFT TISSUES: Unremarkable. No discrete abdominal or pelvic wall hernia. VASCULATURE: Unremarkable. Abdominal aorta is non-dilated. LYMPH NODES: Unremarkable. No enlarged lymph nodes. CT/CT Abd/Pelvis W/WO Contrast IMPRESSION: 1. No urolithiasis or obstructive uropathy. 2. Decompressed appearance of the bladder which is otherwise unremarkable Electronically Signed: Nikolai Penaloza MD at 0:51 EDT Reading Location ID and State: [facility] / [place] Tel , Service support , CC: Dr. Jeanine Rae MD; Dr. Lupe Calvo DO Email Manager: Signed Jeanine Rae Work Phone: Start: 12-31-2020 End: 01-01-2021 Dexa Bone Density Study Comments: See Note; NOTES: [facility] Imaging Services [address] [place] [address] Dexa Bone Density Study MR#: [id number] Acct: [id number] Name: OLLIE ALANISYUE Santamaria Rep #: [id number] : 1950 F 70 From: Sergio szymanski MD PCP: Carolynn Srivastava NP-C Status: REG CLI Study: Dexa Bone Density Study Date of Exam: 12/31/20 Exam# [id number] Ordering Dr: Lupe Calvo DO STUDY: DUAL ENERGY X-RAY ABSORPTIOMETRY / DXA REASON FOR EXAM: Female, 70 years old. 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 COMPARISON: Comparison is made with prior study dated 06/13/2019. FINDINGS: Lumbar Spine (L1-L4): g/cm2 (1.256) / T-score (0.6) / Z-score (2.3) Findings are suggestive of normal bone density with a low fracture risk. Left Femur Total: g/cm2 (0.868) / T-score (-1.1) / Z-score (0.2) Left Femoral Neck: g/cm2 (0.724) / T-score (-2.3) / Z-score (-0.7) Right Femur Total: g/cm2 (0.906) / T-score (-0.8) / Z-score (0.5) Right Femoral Neck: g/cm2 (0.728) / T-score (-2.2) / Z-score (0.6) The T-Scores on the most recent prior examination were: Lumbar Spine (L1-L4): There has been improvement of bone density since the previous examination. Left Femur Total: which represents a worsening of 4.3%. Right Femur Total: which represents a worsening of 6.8%. BD/Dexa Bone Density Study IMPRESSION: The patient is considered osteopenic as outlined below according to World Amadeo Organization (WHO) criteria with a high fracture risk. There has been worsening of bone density since the previous examination. Reference Information: The T-score is the number [...] 1. NIH Osteoporosis and Related Bone Diseases www osteo.org 2. International Society for Clinical Densitometry www iscd.org 3. National Osteoporosis Foundation www nof.org Electronically Signed: Sergio Waite MD at 9:26 EST , Service support , CC: JAYLEN Srivastava; Dr. Lupe Calvo DO Email Manager: Signed Lupe Calvo Work Phone: Start: 12-31-2020 End: 01-01-2021 SCRN MAMM (CAD)W/SANDRA BILAT Comments: See Note; NOTES: [facility] Imaging Services [address] [place] [address] SCRN MAMM (CAD)W/SANDRA BILAT MR#: [id number] Acct: [id number] Name: PARESH ALANIS Rep #: [id number] : 1950 F 70 From: Sergio szymanski MD PCP: JAYLEN Paul Status: REG CLI Study: SCRN MAMM (CAD)W/SANDRA BILAT Date of Exam: 01/19 Exam# [id number] Ordering Dr: Lupe Calvo DO MAMMOGRAPHY - BILATERAL SCREENING REASON FOR EXAM: Female, 70 years old. Routine annual screening examination. PERTINENT HISTORY: Mother with breast cancer. Remote left excisional breast biopsy. TECHNIQUE: Digital bilateral breast sandra (3D mammographic acquisition) in the CC and MLO projections. 2-D mediolateral oblique (MLO) and craniocaudad (CC) views of both breasts were obtained. CAD: Full Field Digital Mammography with Computer Added Detection was performed. COMPARISON: Comparison is made with prior study dated 12/14/2018. FINDINGS: Breast Composition: The breasts are almost entirely fatty. There are no dominant masses or suspicious calcifications. Stable small benign-appearing bilateral axillary No other significant abnormalities are identified. There has been no significant change since the prior study. BI/SCRN MAMM (CAD)W/SANDRA BILAT IMPRESSION: Stable bilateral screening mammogram. Yearly follow-up mammogram recommended. (A) ASSESSMENT CATEGORY: BIRADS Category 2: Benign. A letter regarding these results will be sent to the patient by the facility within 30 days. Approximately 10% of breast cancers are not detected by mammography. A normal mammogram should not delay biopsy of a clinically suspicious abnormality. [id number] Electronically Signed: Sergio Waite MD at 8:37 EST , Service support , CC: JAYLEN Srivastava; Dr. Lupe Calvo DO Email Manager: Signed Lupe Calvo Work Phone: Start: 12-14-2018 End: 12-14-2018 Dexa Bone Density Study Comments: See Note; NOTES: [facility] Imaging Services [address] [place] [address] Dexa Bone Density Study MR#: [id number] Acct: [id number] Name: PARESH ALANIS Rep #: [id number] : 1950 F 68 From: Sergio Waite MD PCP: Carolynn Srivastava NP Status: REG CLI Study: Dexa Bone Density Study Date of Exam: 12/14/18 Exam# [id number] Ordering Dr: Lupe Calvo DO STUDY: DUAL [...] Sergio Waite MD at 15:52 EST Tel [phone], Service support , CC: Carolynn Srivastava NP; Lupe Calvo DO Email Manager: Signed Lupe Calvo Work Phone: Start: 12-14-2018 End: 12-14-2018 SCREENING MAMM (CAD), BILAT Comments: See Note; NOTES: [facility] Imaging Services [address] [place] [address] SCREENING MAMM (CAD), BILAT MR#: [id number] Acct: [id number] Name: PAREHS ALANIS Rep #: [id number] : 1950 F 68 From: Sergio Waite MD PCP: Carolynn Srivastava NP Status: REG CLI Study: SCREENING MAMM (CAD), BILAT Date of Exam: 12/14/18 Exam# [id number] Ordering Dr: Lupe Calvo DO MAMMOGRAPHY - BILATERAL SCREENING REASON FOR EXAM: Female, 68 years old. Routine annual screening examination. PERTINENT HISTORY: Mother with breast cancer. Remote left excisional breast biopsy. TECHNIQUE: Digital bilateral breast sandra (3D mammographic acquisition) in the CC and [...] delay biopsy of a clinically suspicious abnormality. [id number] Electronically Signed: Sergio Waite MD at 11:39 EST Tel [phone], Service support , CC: Craolynn Srivastava ASSISTANT GOLF COURSE SUPERINTENDENT; Lupe Calvo DO Email Manager: Signed Lupe Calvo Work Phone: Start: 11-15-2018 End: 11-15-2018 Emergency Department Summary Comments: See Note; NOTES: [facility] Medical Records Department [address] [place] [address] Emergency Department Summary 11/15/184 MR#: [id number] Acct: [id number] Name: PARESH ALANIS Rep #: [id number] : 1950 68 From: Anjum Shook MD [...] hemorrhagic cystitis This note was generated with [employer] dictation software. It may contain incorrect words, spelling, and punctuation that were not noted in review of the chart prior to signing ED Disposition - Plan for ED Patient: Chief Complaint: Complaint Instructions: ED UTI Cystitis Female Prescriptions: Nitrofurantoin Macrocrystals [Macrobid] 100 mg PO Q12 #14 cap Referrals: Lupe Calvo DO [Primary Care Provider] - What to do if you have Problems For any increased pain, shortness of breath, bleeding, nausea or vomiting, chest pain, or any unexpected problems, contact your Primary Care Provider. Call [facility] ([phone]) or report to the closest Emergency Room. Call 911 if necessary. 11/15/18 2239 <Electronically signed by Anjum Shook MD> Date Anjum Shook MD Cosigner Signature (If Indicated): Date ___ CC: Lupe Morelos Start: 09-16-2018 End: 09-16-2018 Echo, Complete w/ Contrast Comments: See Note; NOTES: [facility] Cardiovascular Services [address] [place] [address] Echo Complete W/ Contrast 09/16/18 0846 MR#: [id number] Acct: [id number] Name: PARESH ALANIS Rep #: [id number] : 1950 67 From: Israel Grajeda MD Attending Dr: Lupe Calvo DO Status: REG CLI Ordering Dr: Lupe Calvo DO Date: 09/16/18 Location: [facility] Sex: F C Admitted: Reason For [...] Doppler Measurements AND Calculations MV E max lizbeth: 67.2 cm/sec Lat Peak E' Lizbeth: 10.3 cm/sec Med Peak E' Lizbeth: 5.8 cm/sec MV A max lizbeth: 92.1 cm/sec E/E' lat: 6.5 E/E' med: 11.6 MV E/A: 0.73 MV V2 max: 105.9 cm/sec MV P1/2t max lizbeth: 95.3 cm/sec Ao V2 max: 112.6 cm/sec [...] Date Dictated: 09/16/18 0846 Date Transcribed: 09/16/182115 Email Manager: Signed Lupe Calvo Work Phone: Start: 09-16-2018 End: 09-16-2018 Stress Report Comments: See Note; NOTES: [facility] Cardiovascular Services [address] [place] [address] MR#: [id number] Acct: [id number] Name: PARESH ALANIS Rep #: [id number] : 1950 67 From: Israel Grajeda MD [...] 70 %. This note was generated with [employer] software. It may contain incorrect words, spelling, and punctuation that were not noted in checking the note before signing. 09/16/18 1550 <Electronically signed by Israel Grajeda MD> Date Israel Grajeda MD CC: Lupe Calvo DO Date Dictated: 09/16/18 1546 Date Transcribed: 09/16/18 1546 Email Manager: PM Signed Lupe Calvo Start: 07-30-2018 End: 07-30-2018 Urgent Care Visit Report Comments: See Note; NOTES: [facility] [address] [place] [address] OFFICE VISIT Date of Service: 07/30/18 MR#: [id number] Acct: [id number] Name: PARESH ALANIS Rep #: [id number] : 1950 Provider: CIRA Mehta Age/Sex: 67/F Location: [facility] [place] Status: Signed Intake Vital Signs07/30/18 Height 5 [...] HPI HPI Chief Complaint: poison donna Details: PARESH ALANIS, is a 67 F, with uncontrolled [...] Nutritional Appearance: obese Orientation: alert, oriented x3 HENMT Head: [...] he and patient are aware she may shrimp picker the triamcinolone cream now, but NOT to shrimp picker the MDP until tomorrow, once BP [...] DENIS Cosigner Signature: Date (if applicable) CC: Lupe Calvo Start: 12-04-2017 End: 12-04-2017 Abdomen/Pelvis without Cont Comments: See Note; NOTES: [facility] Imaging Services [address] [place] [address] Abdomen/Pelvis without Cont MR#: [id number] Acct: [id number] Name: JOLENEMinniePARESH Rep #: [id number] : 1950 F 67 From: Rui Gould DO PCP: Carolynn Srivastava NP Status: REG CLI Study: Abdomen/Pelvis without Cont Date of Exam: 12/04/17 Exam# [id number] Ordering Dr: Carolynn Srivastava STUDY: CT ABDOMEN AND PELVIS WITHOUT CONTRAST [...] The visualized portions of the heart are within normal limits. Normal liver. Status post cholecystectomy. No significant dilatation of the extrahepatic biliary system. Normal spleen. Normal pancreas. Normal bilateral adrenal glands. Normal right kidney. Normal left kidney. Normal visualized stomach. Normal small intestine. Normal colon. The appendix is visualized and appears normal. Normal abdominal aorta. Normal inferior vena cava. Normal retroperitoneum. Possible 4 mm stone in the urinary bladder. Normal abdominal wall. Mild degenerative vertebral changes. Posterior spurring at T12-L1 slightly protruding into the central canal. CT/Abdomen/Pelvis without Cont IMPRESSION: Possible stone in the urinary bladder. Electronically Signed: Rui oGuld DO at 11:57 EST Tel [phone], Service support , CC: Carolynn Srivastava NP Email Manager: Signed Carolynn Srivastava Work Phone: Abdominal hysterectomy Janay Gopal Jeanmarie Comment on above: In her 20s Abdominal hysterectomy Mague Pillai Comment on above: In her 20s Abdominal hysterectomy Jasmi n Gravius Comment on above: In her 20s Abdominal hysterectomy Ashle y Cross Comment on above: In her 20s Abdominal hysterectomy Jasmi n Gravius Comment on above: In her 20s Abdominal hysterectomy Ashle y Cross Comment on above: In her 20s Abdominal hysterectomy Ashle y Cross Comment on above: In her 20s Abdominal hysterectomy Ashle y Cross RUBBER COMPOUNDER MIXER Comment on above: In her 20s Abdominal hysterectomy Ashle y Cross RUBBER COMPOUNDER MIXER Comment on above: In her 20s Abdominal hysterectomy Jean a Slarb RUBBER COMPOUNDER MIXER Comment on above: In her 20s Abdominal hysterectomy Sabrina Conway RUBBER COMPOUNDER MIXER Comment on above: In her 20s Abdominal hysterectomy Hamida Shay MEASUREMENT ADVISOR Comment on above: In her 20s Abdominal hysterectomy Hemant Quezada MEASUREMENT ADVISOR Comment on above: In her 20s Abdominal hysterectomy Hemant Quezada MEASUREMENT ADVISOR Comment on above: In her 20s Abdominal hysterectomy Hemant Quezada MEASUREMENT ADVISOR Comment on above: In her 20s Abdominal hysterectomy BRIDGER Willis RUBBER COMPOUNDER MIXER Comment on above: In her 20s Cholecystectomy Janay Murry Comment on above: 22's Cholecystectomy Anderson Pillai Comment on above: 20's Cholecystectomy Izzy Gravi us Comment on above: 20's Cholecystectomy Adelina Stauffer Comment on above: 20's Cholecystectomy Izzy Gravi us Comment on above: 20's Cholecystectomy Adelina Stauffer Comment on above: 20's Cholecystectomy Adelina Stauffer Comment on above: 20's Cholecystectomy Adelina Cross RUBBER COMPOUNDER MIXER Comment on above: 20's Cholecystectomy Adelina Cross RUBBER COMPOUNDER MIXER Comment on above: 20's Cholecystectomy Hayley Slarb RUBBER COMPOUNDER MIXER Comment on above: 20's Cholecystectomy Sabrina Cofffran wright RUBBER COMPOUNDER MIXER Comment on above: 22's Cholecystectomy Bibiana Nanda araiza MEASUREMENT ADVISOR Comment on above: 20's Cholecystectomy Kayela Radfo calderon MEASUREMENT ADVISOR Comment on above: 20's Cholecystectomy Kayela Radfo rd MEASUREMENT ADVISOR Comment on above: 20's Cholecystectomy Kayela Radfo caldreon MEASUREMENT ADVISOR Comment on above: 20's Cholecystectomy BEN Beryl roman RUBBER COMPOUNDER MIXER Comment on above: 22's End: 09-20-2015 Cholecystectomy Cholecystectomy BEN Willis RUBBER COMPOUNDER MIXER Comment on above: In her 20s End: 09-20-2015 Colonoscopy Colonoscopy Lupe Calvo Comment on above: ? date D&C Janay Murry Comment on above: 20's D&C Anderson Pillai Comment on above: 20's D&C Izzy Gravius Comment on above: 20's D&C Adelina Stauffer Comment on above: 20's D&C Izzy Gravius Comment on above: 20's D&C Adelina Stauffer Comment on above: 20's D&C Adelina Stauffer Comment on above: 20's D&C Adelina Stauffer LP N Comment on above: 20's D&C Adelina Stauffer LP N Comment on above: 20's D&C Hayley Monetrb LP N Comment on above: 20's D&C Sabrina Herron PN Comment on above: 20's D&C Bibiana Jaspal MEASUREMENT ADVISOR Comment on above: 20's D&C Melonie Quezada MEASUREMENT ADVISOR Comment on above: 20's D&C Melonie Quezada MEASUREMENT ADVISOR Comment on above: 20's D&C Kayonatan Quezada MEASUREMENT ADVISOR Comment on above: 20's D&C BEN Willis LPN Comment on above: 20's Dilation and curetta ge of uterus Janay Murry Comment on above: in her 20s Dilation and curetta ge of uterus Anderson Pillai Comment on above: in her 20s Dilation and curetta ge of uterus Izzy Gravius Comment on above: in her 20s Dilation and curetta ge of uterus Adelina Cross Comment on above: in her 20s Dilation and curetta ge of uterus Izzy Gravius Comment on above: in her 20s Dilation and curetta ge of uterus Adelina Cross Comment on above: in her 20s Dilation and curetta ge of uterus Adelnia Cross Comment on above: in her 20s Dilation and curetta ge of uterus Adelina Cross RUBBER COMPOUNDER MIXER Comment on above: in her 20s Dilation and curetta ge of uterus Adelina Cross RUBBER COMPOUNDER MIXER Comment on above: in her 20s Dilation and curetta ge of uterus Hayley Slarb RUBBER COMPOUNDER MIXER Comment on above: in her 20s Dilation and curetta ge of uterus Sabrina Zoraida RUBBER COMPOUNDER MIXER Comment on above: in her 20s Dilation and curetta ge of uterus Bibiana Manchak MEASUREMENT ADVISOR Comment on above: in her 20s Dilation and curetta ge of uterus Kayela [place] MEASUREMENT ADVISOR Comment on above: in her 20s Dilation and curetta ge of uterus Kayela Pilar MEASUREMENT ADVISOR Comment on above: in her 20s Dilation and curetta ge of uterus Kayela [place] MEASUREMENT ADVISOR Comment on above: in her 20s Dilation and curetta ge of uterus BEN Lazaro STINSONN Comment on above: in her 20s Total hysterectomy Janay Herron maycol Comment on above: 20's Total hysterectomy Anderson [facility] Comment on above: 20's Total hysterectomy Izzy Gr avius Comment on above: 20's Total hysterectomy Adelina Cr oss Comment on above: 20's Total hysterectomy Izzy Gr avius Comment on above: 20's Total hysterectomy Adelina Cr oss Comment on above: 20's Total hysterectomy Adelina Cr oss Comment on above: 20's Total hysterectomy Adelina Cr oss RUBBER COMPOUNDER MIXER Comment on above: 20's Total hysterectomy Adelina Cr oss RUBBER COMPOUNDER MIXER Comment on above: 20's Total hysterectomy Hayley Sl arb RUBBER COMPOUNDER MIXER Comment on above: 20's Total hysterectomy Sabrina Cof fman RUBBER COMPOUNDER MIXER Comment on above: 20's Total hysterectomy Bibiana Santamaria kvng MEASUREMENT ADVISOR Comment on above: 20's Total hysterectomy Kayela Ra kalyn MEASUREMENT ADVISOR Comment on above: 20's Total hysterectomy Kayela Ra dfmegan MEASUREMENT ADVISOR Comment on above: 20's Total hysterectomy Kayela Ra dford MEASUREMENT ADVISOR Comment on above: 20's Total hysterectomy BEN Michael lowe RUBBER COMPOUNDER MIXER Comment on above: 20's Plan of Treatment Date Care Activity Detail Author Start: 07-30-2023 Procedure Education Eprescribe d prescriptions (G8553) [facility]; [facility] Work Phone: Start: 04-01-2023 Procedure Education Eprescribe d prescriptions (G8553) [facility]; [facility] Work Phone: Start: 04-01-2023 Provider Instruction s for Treatment [facility]; [facility] Work Phone: Start: 03-15-2023 Procedure Education Eprescribe d prescriptions (G8553) [facility]; [facility] Work Phone: Start: 03-15-2023 Provider Instruction s for Treatment [facility]; [facility] Work Phone: Start: 02-22-2023 Procedure Education Eprescribe d prescriptions (G8553) [facility]; [facility] Work Phone: Start: 02-22-2023 Provider Instruction s for Treatment [facility]; [facility] Work Phone: Start: 02-08-2023 25 hydroxy includes fractions if performed CALCIFIDIOL (44833) VIT D 25 [facility]; [facility] Work Phone: Start: 02-08-2023 Assay of thyroid stimulating hormone tsh TSH (13121) [facility]; [facility] Work Phone: Start: 02-08-2023 Urnls dip stick/tabl et reagent auto microscopy URINALYSIS, W/ MICRO (13242) [facility]; [facility] Work Phone: Start: 02-08-2023 Urine albumin quantitative MICROALBUMIN: CREATININE RATIO (37466) AND (87519) [facility]; [facility] Work Phone: Start: 02-08-2023 Comprehensive metabo lic panel METABOLIC PANEL, COMPREHENSIVE (63302) [facility]; [facility] Work Phone: Start: 02-08-2023 Lipid panel LIPID PANEL (26558) [facility]; [facility] Work Phone: Start: 02-08-2023 Blood count complete auto&auto difrntl wbc CBC W/AUTO DIFF WBC (11601) [facility]; [facility] Work Phone: Start: 02-08-2023 Procedure Education Eprescribe d prescriptions (G8553) [facility]; [facility] Work Phone: Start: 02-08-2023 Provider Instruction s for Treatment [facility]; [facility] Work Phone: Start: 12-03-2021 Procedure Education Eprescribe d prescriptions (G8553) [facility]; [facility] Work Phone: Start: 12-03-2021 Provider Instruction s for Treatment [facility]; [facility] Work Phone: Start: 11-17-2021 Procedure Education Eprescribe d prescriptions (G8553) [facility]; [facility] Work Phone: Start: 11-17-2021 Provider Instruction s for Treatment [facility]; [facility] Work Phone: Start: 10-29-2021 Provider Instruction s for Treatment [facility]; [facility] Work Phone: Start: 10-13-2021 Procedure Education Eprescribe d prescriptions (G8553) [facility]; [facility] Work Phone: Start: 10-13-2021 Provider Instruction s for Treatment [facility]; [facility] Work Phone: Start: 09-29-2021 25 hydroxy includes fractions if performed CALCIFEDIOL (76374) [facility]; [facility] Work Phone: Start: 09-29-2021 Assay of thyroid stimulating hormone tsh TSH (26000) [facility]; [facility] Work Phone: Start: 09-29-2021 Urnls dip stick/tabl et reagent auto microscopy URINALYSIS, W/ MICRO (24127) [facility]; [facility] Work Phone: Start: 09-29-2021 Urine albumin quantitative MICROALBUMIN: CREATININE RATIO (39611) AND (07079) [facility]; [facility] Work Phone: Start: 09-29-2021 Comprehensive metabo lic panel METABOLIC PANEL, COMPREHENSIVE (56919) [facility]; [facility] Work Phone: Start: 09-29-2021 Blood count complete auto&auto difrntl wbc CBC W/AUTO DIFF WBC (19114) [facility]; [facility] Work Phone: Start: 09-29-2021 Lipid panel LIPID PANEL (01035) [facility]; [facility] Work Phone: Start: 09-29-2021 Procedure Education Eprescribe d prescriptions (G8553) [facility]; [facility] Work Phone: Start: 09-29-2021 Provider Instruction s for Treatment [facility]; [facility] Work Phone: Start: 04-21-2021 Procedure Education Eprescribe d prescriptions (G8553) [facility]; [facility] Work Phone: Start: 04-21-2021 Provider Instruction s for Treatment *Antibiotic Usage Education - Female [facility]; [facility] Work Phone: Start: 04-16-2021 Hepatitis c antibody HEPATITIS C ANTIBODY (78612) [facility]; [facility] Work Phone: Start: 03-19-2021 Procedure Education Eprescribe d prescriptions (G8553) [facility]; [facility] Work Phone: Start: 03-19-2021 Provider Instruction s for Treatment [facility]; [facility] Work Phone: Start: 03-05-2021 Procedure Education Eprescribe d prescriptions (G8553) [facility]; [facility] Work Phone: Start: 03-05-2021 Provider Instruction s for Treatment COVID SCREENING FORM [facility]; [facility] Work Phone: Start: 02-20-2021 Procedure Education Eprescribe d prescriptions (G8553) [facility]; [facility] Work Phone: Start: 02-20-2021 Provider Instruction s for Treatment [facility]; [facility] Work Phone: Start: 02-10-2021 Procedure Education Eprescribe d prescriptions (G8553) [facility]; [facility] Work Phone: Start: 02-10-2021 Provider Instruction s for Treatment [facility]; [facility] Work Phone: Start: 01-15-2021 Provider Instruction s for Treatment [facility]; [facility] Work Phone: Start: 12-25-2020 Procedure Education Eprescribe d prescriptions (G8553) [facility]; [facility] Work Phone: Start: 12-25-2020 Provider Instruction s for Treatment [facility]; [facility] Work Phone: Start: 12-09-2020 Procedure Education Eprescribe d prescriptions (G8553) [facility]; [facility] Work Phone: Start: 12-09-2020 Provider Instruction s for Treatment [facility]; [facility] Work Phone: Start: 10-16-2020 25 hydroxy includes fractions if performed CALCIFIDIOL (62624) VIT D 25 [facility] Work Phone: Start: 10-16-2020 TSH Qn TSH (03568) [facility] Work Phone: Start: 10-16-2020 Urnls dip stick/tabl et reagent auto microscopy URINALYSIS, W/ MICRO (68741) [facility] Work Phone: Start: 10-16-2020 Urine albumin quantitative MICROALBUMIN: CREATININE RATIO (91698) AND (93722) [facility] Work Phone: Start: 10-16-2020 Comprehensive metabo lic panel METABOLIC PANEL, COMPREHENSIVE (04683) [facility] Work Phone: Start: 10-16-2020 Lipid panel LIPID PANEL (84853) [facility] Work Phone: Start: 10-16-2020 Blood count complete auto&auto difrntl wbc CBC W/AUTO DIFF WBC (01086) [facility] Work Phone: Start: 10-16-2020 Procedure Education Eprescribe d prescriptions (G8553) [facility] Work Phone: Start: 10-16-2020 Provider Instruction s for Treatment [facility] Work Phone: Start: 12-15-2018 Procedure Education Eprescribe d prescriptions (G8553) [facility] Work Phone: Start: 12-15-2018 Provider Instruction s for Treatment [facility] Work Phone: Start: 09-09-2018 Provider Instruction s for Treatment [facility] Work Phone: Start: 08-24-2018 Procedure Education Eprescribe d prescriptions (G8553) [facility] Work Phone: Start: 08-24-2018 Provider Instruction s for Treatment [facility] Work Phone: Start: 08-24-2018 Cobalamin (Vitamin B 12) mass conc VITAMIN B-12 (CYANOCOBALAMIN) (47205) [facility] Work Phone: Start: 08-24-2018 Cyanocobalamin vitam in b-12 VITAMIN B-12 (CYANOCOBALAMIN) (54351) [facility]; [facility] Work Phone: Start: 05-05-2018 Provider Instruction s for Treatment [facility] Work Phone: Start: 05-05-2018 Urnls dip stick/tabl et reagent auto microscopy URINALYSIS, W/ MICRO (72992) [facility] Work Phone: Start: 05-05-2018 Urine albumin quantitative MICROALBUMIN: CREATININE RATIO (31667) AND (53769) [facility] Work Phone: Start: 12-30-2017 Procedure Education Eprescribe d prescriptions (G8553) [facility] Work Phone: Start: 12-30-2017 Provider Instruction s for Treatment [facility] Work Phone: Start: 12-30-2017 Assay of thyroid stimulating hormone tsh TSH (74797) [facility]; [facility] Work Phone: Start: 12-30-2017 [facility]in Qn [facility] (73038) [facility] Start: 12-30-2017 Urnls dip stick/tabl et reagent auto microscopy URINALYSIS, W/ MICRO (15724) [facility] Work Phone: Start: 12-30-2017 Urine albumin quantitative MICROALBUMIN: CREATININE RATIO (36863) AND (45502) [facility] Work Phone: Start: 12-30-2017 Comprehensive metabo lic panel METABOLIC PANEL, COMPREHENSIVE (46471) [facility] Work Phone: Start: 12-30-2017 Lipoprotein blood qu an numbers & subclasses LIPOPROTEIN, BLD, BY NMR (73952) [facility]; [facility] Work Phone: Start: 12-30-2017 Protein mass conc LIPOPROTEIN, BLD, BY NMR (89446) [facility] Work Phone: Start: 12-30-2017 Lipid panel LIPID PANEL (77287) [facility] Work Phone: Start: 12-30-2017 Blood count manual c ell count each CBC with auto diff (68848) [facility] Work Phone: Start: 12-06-2017 Procedure Education Eprescribe d prescriptions (G8553) [facility] Work Phone: Start: 12-06-2017 Provider Instruction s for Treatment Follow up if no improvement or if symptoms worsen [facility] Work Phone: Start: 12-03-2017 Procedure Education Eprescribe d prescriptions (G8553) [facility] Work Phone: Start: 12-03-2017 Provider Instruction s for Treatment Follow up if no improvement or if symptoms worsen [facility] Work Phone: Start: 09-24-2017 Procedure Education Eprescribe d prescriptions (G8553) [facility] Work Phone: Start: 09-24-2017 Provider Instruction s for Treatment [facility] Work Phone: Start: 05-20-2017 Patient Education Diabetes and Exercise: Preventing Low Blood Sugar: blood sugar [facility] Work Phone: Start: 05-20-2017 Provider Instruction s for Treatment [facility] Work Phone: Start: 01-14-2017 Procedure Education Eprescribe d prescriptions (G8553) [facility] Work Phone: Start: 01-14-2017 Provider Instruction s for Treatment Follow up if no improvement or if symptoms worsen [facility] Work Phone: Start: 01-11-2017 Procedure Education Eprescribe d prescriptions (G8553) [facility] Work Phone: Start: 01-11-2017 Provider Instruction s for Treatment Follow up if no improvement or if symptoms worsen [facility] Work Phone: Start: 09-09-2016 Procedure Education Eprescribe d prescriptions (G8553) [facility] Work Phone: Start: 09-09-2016 Provider Instruction s for Treatment Follow up in 1 week [facility] Work Phone: Start: 04-03-2016 Procedure Education Eprescribe d prescriptions (G8553) [facility] Work Phone: Start: 10-08-2015 Patient Education Flu (Influenza) *: flu [facility] Work Phone: Start: 10-08-2015 Procedure Education Eprescribe d prescriptions (G8553) [facility] Work Phone: Start: 10-08-2015 Hemoglobin A1c/Hemoglobin.total mass fraction (Bld) Hemoglobin Glyclated (HGB A1C) (08690) [facility] Work Phone: Start: 10-08-2015 Hemoglobin glycosyla adama a1c Hemoglobin Glyclated (HGB A1C) (92496) [facility]; [facility] Work Phone: Start: 10-08-2015 Basic metabolic pane l calcium total Metabolic Panel, Basic (20056) [facility] Work Phone: Start: 09-20-2015 Procedure Education Eprescribe d prescriptions (G8553) [facility] Work Phone: Start: 09-20-2015 Provider Instruction s for Treatment *Mo Inhibitor Side Effects [facility] Work Phone: Start: 05-10-2015 Provider Instruction s for Treatment Follow up if no improvement or if symptoms worsen [facility] Work Phone: Start: 09-01-2013 Provider Instruction s for Treatment Reviewed Lab [facility] Work Phone: Start: 08-28-2013 Provider Instruction s for Treatment Follow up : wednesday to sigifredo leg [facility] Work Phone: Start: 08-24-2013 Provider Instruction s for Treatment Follow up tomorrow, as needed [facility] Work Phone: Start: 08-24-2013 Drug screen quantita tive vancomycin VANCOMYCIN, TROUGH (48442) [facility] Work Phone: Start: 08-23-2013 Patient Education Cellulitis: skin infection [facility] Work Phone: Start: 08-23-2013 Provider Instruction s for Treatment Follow up tomorrow, as needed [facility] Work Phone: Start: 08-22-2013 Provider Instruction s for Treatment [facility] Work Phone: Start: 08-21-2013 Cul bact xcpt urine blood/stool aerobic isol KEILA CULTURE-OTHER (56832) [facility] Work Phone: Comment on above: rt leg Start: 08-21-2013 Patient Education Excision of a Skin Lesion: skin [facility] Work Phone: Start: 08-21-2013 Provider Instruction s for Treatment Follow up with [facility] for IV vanco tomorrow am [facility] Work Phone: Start: 08-21-2013 Iadna s aureus methicillin resist amp probe tq MRSA Culture (51318) [facility] Work Phone: Comment on above: nose Start: 06-30-2013 Patient Education High Blood P ressure (Essential Hypertension) *: bp [facility] Work Phone: Start: 06-30-2013 Provider Instruction s for Treatment [facility] Work Phone: Start: 03-28-2013 Provider Instruction s for Treatment Follow up in 3 months [facility] Work Phone: Start: 01-22-2010 Provider Instruction s for Treatment FOLLOW UP IN 2 WEEKS [facility] Work Phone: Start: 07-25-2008 Provider Instruction s for Treatment [facility] Work Phone: Start: 07-25-2008 Basic metabolic pane l calcium total Metabolic Panel, Basic (81454) [facility] Work Phone: Start: 07-25-2008 Hepatic function panel HEPATIC FUNCTION PANEL (86967) [facility] Work Phone: Comment on above: End of Sep Start: 07-25-2008 Lipid panel LIPID PANEL (31637) [facility] Work Phone: Comment on above: To be drawn end of N ovember Start: 07-18-2008 Provider Instruction s for Treatment [facility] Work Phone: Start: 07-18-2008 Lipid panel LIPID PANEL (04913) [facility] Work Phone: Comment on above: Sep 2009 Start: 07-18-2008 Assay of thyroid stimulating hormone tsh TSH (48772) [facility]; [facility] Work Phone: Start: 07-18-2008 Thyrotropin Qn TSH (04516) [facility] Work Phone: [facility] Work Phone: [facility] Work [facility]: [facility]: [facility]: [facility]: [facility]: [facility]: [facility]: [facility]: [facility]: [facility]: [facility]: [facility]: [facility]: [facility] Work Phone: [facility] Work Phone: [facility] Work Phone: [facility] Work [facility]: [facility] Work Phone: [facility] Work Phone: [facility] Work Phone: Payers Date Payer Category Payer Self-pay [id number] 2020 Medicare [id number] 2017 Medicare [id number] 2017 Private Health Insurance [id number] 2008 Unknown [id number] 1950 Unknown [id number] Medicare SELF PAY INSURANCE [id number] Unknown Unknown [id number] Unknown [id number] Unknown [id number] Unknown [id number] Unknown [id number] Social History Date Type Detail Facility Alcohol Use Current every da y smoker [facility] Work Phone: Comment on above: Occasional alcohol u se qd Light Lives with spouse [employer] Tobacco Use: Current every da y smoker. [facility] Work Phone: Tobacco Use: Tobacco Use: [facility] Work Phone: Start: 11-15-2018 Tobacco smoking stat [facility] Unknown if ever smoked [facility] Work Phone: Start: 1950 Sex Assigned At Female W [facility] Work Phone: Medical Equipment Procedure Code Equipment Code Equipment Origin al Text Equipment Identifier Dates True Metrix Bloo d Glucose Test In Vitro Strip 1 (one) Each one test daily for 0 days Quantity: 90 {Strip} Refills: 3 Ordered: 10-May-2019 Lupe Calvo DO, DO, Kathleen Start : 10-May-2019 Active Comments: Mail order. Start: 05-10-2019 Comment on above: Mail order. [employer] Lancets 33G Miscellaneous 1 (one) each daily for 90 days Quantity: 90 {Each} Refills: 3 Ordered: 10-May-2019 Janay Murry LPN Start : 10-May-2019 Active Comments: E11.9 Start: 05-10-2019 Comment on above: E11.9 True Metrix Bloo d Glucose Test In Vitro Strip 1 (one) Each one test daily for 0 days Quantity: 90 {Strip} Refills: 3 Ordered: 10-May-2019 Umesh DO, Lupe Umesh DO, Lupe Start : 10-May-2019 Active Comments: Mail order. Start: 05-10-2019 Comment on above: Mail order. TRUEplus Lancets 33G Miscellaneous 1 (one) each daily for 90 days Quantity: 90 {Each} Refills: 3 Ordered: 10-May-2019 Janay Murry RN Start : 10-May-2019 Active Comments: E11.9 Start: 05-10-2019 Comment on above: E11.9 True Metrix Bloo d Glucose Test In Vitro Strip 1 (one) Each one test daily for 0 days Quantity: 90 {Strip} Refills: 3 Ordered: 10-May-2019 Umesh DO, Lupe Umesh DO Lupe Start : 10-May-2019 Active Comments: Mail order. Start: 05-10-2019 Comment on above: Mail order. TRUEplus Lancets 33G Miscellaneous 1 (one) each daily for 90 days Quantity: 90 {Each} Refills: 3 Ordered: 10-May-2019 Izzy Valencia CMA Start : 10-May-2019 Active Comments: E11.9 Start: 05-10-2019 Comment on above: E11.9 True Metrix Bloo d Glucose Test In Vitro Strip 1 (one) Each one test daily for 0 days Quantity: 90 {Strip} Refills: 3 Ordered: 10-May-2019 Umesh DO Lupe Umesh DO Lupe Start : 10-May-2019 Active Comments: Mail order. Start: 05-10-2019 Comment on above: Mail order. TRUEplus Lancets 33G Miscellaneous 1 (one) each daily for 90 days Quantity: 90 {Each} Refills: 3 Ordered: 10-May-2019 Annie GIBBS Izzy Start : 10-May-2019 Active Comments: E11.9 Start: 05-10-2019 Comment on above: E11.9 True Metrix Bloo d Glucose Test In Vitro Strip 1 (one) Each one test daily for 0 days Quantity: 90 {Strip} Refills: 3 Ordered: 10-May-2019 Umesh DO, Lupe Umesh DO, Lupe Start : 10-May-2019 Active Comments: Mail order. Start: 05-10-2019 Comment on above: Mail order. TRUEplus Lancets 33G Miscellaneous 1 (one) each daily for 90 days Quantity: 90 {Each} Refills: 3 Ordered: 10-May-2019 Gravius MEASUREMENT ADVISOR, Izzy Start : 10-May-2019 Active Comments: E11.9 Start: 05-10-2019 Comment on above: E11.9 True Metrix Bloo d Glucose Test In Vitro Strip 1 (one) Each one test daily for 0 days Quantity: 90 {Strip} Refills: 3 Ordered: 10-May-2019 Umesh DO, Lupe Umesh DO, Lupe Start : 10-May-2019 Active Comments: Mail order. Start: 05-10-2019 Comment on above: Mail order. TRUEplus Lancets 33G Miscellaneous 1 (one) each daily for 90 days Quantity: 90 {Each} Refills: 3 Ordered: 10-May-2019 Annie GIBBS, Izzy Start : 10-May-2019 Active Comments: E11.9 Start: 05-10-2019 Comment on above: E11.9 True Metrix Bloo d Glucose Test In Vitro Strip 1 (one) Each one test daily for 0 days Quantity: 90 {Strip} Refills: 3 Ordered: 10-May-2019 Umesh DO, Lupe Umesh DO, Lupe Start : 10-May-2019 Active Comments: Mail order. Start: 05-10-2019 Comment on above: Mail order. TRUEplus Lancets 33G Miscellaneous 1 (one) each daily for 90 days Quantity: 90 {Each} Refills: 3 Ordered: 10-May-2019 Zulayius MEASUREMENT ADVISOR, Izzy Start : 10-May-2019 Active Comments: E11.9 Start: 05-10-2019 Comment on above: E11.9 True Metrix Bloo d Glucose Test In Vitro Strip 1 (one) Each one test daily for 0 days Quantity: 90 {Strip} Refills: 3 Ordered: 10-May-2019 Umesh DO, Lupe Umesh DO, Lupe Start : 10-May-2019 Active Comments: Mail order. Start: 05-10-2019 Comment on above: Mail order. TRUEplus Lancets 33G Miscellaneous 1 (one) each daily for 90 days Quantity: 90 {Each} Refills: 3 Ordered: 10-May-2019 Gravius MEASUREMENT ADVISOR, Izzy Start : 10-May-2019 Active Comments: E11.9 Start: 05-10-2019 Comment on above: E11.9 True Metrix Bloo d Glucose Test In Vitro Strip 1 (one) Each one test daily for 0 days Quantity: 90 {Strip} Refills: 3 Ordered: 10-May-2019 Umesh DO, Lupe Umesh DO, Lupe Start : 10-May-2019 Active Comments: Mail order. Start: 05-10-2019 Comment on above: Mail order. TRUEplus Lancets 33G Miscellaneous 1 (one) each daily for 90 days Quantity: 90 {Each} Refills: 3 Ordered: 10-May-2019 Gravius MEASUREMENT ADVISOR, Izzy Start : 10-May-2019 Active Comments: E11.9 Start: 05-10-2019 Comment on above: E11.9 True Metrix Bloo d Glucose Test In Vitro Strip 1 (one) Each one test daily for 0 days Quantity: 90 {Strip} Refills: 3 Ordered: 10-May-2019 Umesh DO, Lupe Umesh DO, Lupe Start : 10-May-2019 Active Comments: Mail order. Start: 05-10-2019 Comment on above: Mail order. TRUEplus Lancets 33G Miscellaneous 1 (one) each daily for 90 days Quantity: 90 {Each} Refills: 3 Ordered: 10-May-2019 Gravius MEASUREMENT ADVISOR, Izzy Start : 10-May-2019 Active Comments: E11.9 Start: 05-10-2019 Comment on above: E11.9 True Metrix Bloo d Glucose Test In Vitro Strip 1 (one) Each one test daily for 0 days Quantity: 90 {Strip} Refills: 3 Ordered: 10-May-2019 Umesh DO, Lupe Umesh DO, Lupe Start : 10-May-2019 Active Comments: Mail order. Start: 05-10-2019 Comment on above: Mail order. TRUEplus Lancets 33G Miscellaneous 1 (one) each daily for 90 days Quantity: 90 {Each} Refills: 3 Ordered: 10-May-2019 Gravius MEASUREMENT ADVISOR, Izzy Start : 10-May-2019 Active Comments: E11.9 Start: 05-10-2019 Comment on above: E11.9 True Metrix Bloo d Glucose Test In Vitro Strip 1 (one) Each one test daily for 0 days Quantity: 90 {Strip} Refills: 3 Ordered: 10-May-2019 Umesh DO, Lupe Umesh DO Lupe Start : 10-May-2019 Active Comments: Mail order. Start: 05-10-2019 Comment on above: Mail order. TRUEplus Lancets 33G Miscellaneous 1 (one) each daily for 90 days Quantity: 90 {Each} Refills: 3 Ordered: 10-May-2019 Gravius MEASUREMENT ADVISOR, Izzy Start : 10-May-2019 Active Comments: E11.9 Start: 05-10-2019 Comment on above: E11.9 True Metrix Bloo d Glucose Test In Vitro Strip 1 (one) Each one test daily for 0 days Quantity: 90 {Strip} Refills: 3 Ordered: 10-May-2019 Umesh DO, Lupe Umesh DOTomaLupe Start : 10-May-2019 Active Comments: Mail order. Start: 05-10-2019 Comment on above: Mail order. TRUEplus Lancets 33G Miscellaneous 1 (one) each daily for 90 days Quantity: 90 {Each} Refills: 3 Ordered: 10-May-2019 Gravius MEASUREMENT ADVISOR, Izzy Start : 10-May-2019 Active Comments: E11.9 Start: 05-10-2019 Comment on above: E11.9 True Metrix Bloo d Glucose Test In Vitro Strip 1 (one) Each one test daily for 0 days Quantity: 90 {Strip} Refills: 3 Ordered: 21-Apr-2019 Gravius Izzy Start : 21-Apr-2019 Active Comments: Mail order. Start: 04-21-2019 Comment on above: Mail order. True Metrix Bloo d Glucose Test In Vitro Strip 1 (one) Each one test daily for 0 days Quantity: 90 {Strip} Refills: 3 Ordered: 10-May-2019 Umesh DOLupe Umesh DO Lupe Start : 10-May-2019 Active Comments: Mail order. Start: 05-10-2019 Comment on above: Mail order. TRUEplus Lancets 33G Miscellaneous 1 (one) each daily for 90 days Quantity: 90 {Each} Refills: 3 Ordered: 10-May-2019 Gravius MEASUREMENT ADVISOR, Izzy Start : 10-May-2019 Active Comments: E11.9 Start: 05-10-2019 Comment on above: E11.9 True Metrix Bloo d Glucose Test In Vitro Strip 1 (one) Each one test daily for 0 days Quantity: 90 {Strip} Refills: 3 Ordered: 10-May-2019 Umesh DO, Lupe Umesh DO, Lupe Start : 10-May-2019 Active Comments: Mail order. Start: 05-10-2019 Comment on above: Mail order. TRUEplus Lancets 33G Miscellaneous 1 (one) each daily for 90 days Quantity: 90 {Each} Refills: 3 Ordered: 10-May-2019 Izzy Valencia CMA Start : 10-May-2019 Active Comments: E11.9 Start: 05-10-2019 Comment on above: E11.9 True Metrix Bloo d Glucose Test In Vitro Strip 1 (one) Each one test daily for 0 days Quantity: 90 {Strip} Refills: 3 Ordered: 10-May-2019 Umesh DO, Lupe Umesh DO Lupe Start : 10-May-2019 Active Comments: Mail order. Start: 05-10-2019 Comment on above: Mail order. TRUEplus Lancets 33G Miscellaneous 1 (one) each daily for 90 days Quantity: 90 {Each} Refills: 3 Ordered: 10-May-2019 Izzy Valencia CMA Start : 10-May-2019 Active Comments: E11.9 Start: 05-10-2019 Comment on above: E11.9 True Metrix Bloo d Glucose Test In Vitro Strip 1 (one) Each one test daily for 0 days Quantity: 90 {Strip} Refills: 3 Ordered: 10-May-2019 Umesh DO, Lupe Umesh DO, Lupe Start : 10-May-2019 Active Comments: Mail order. Start: 05-10-2019 Comment on above: Mail order. TRUEplus Lancets 33G Miscellaneous 1 (one) each daily for 90 days Quantity: 90 {Each} Refills: 3 Ordered: 10-May-2019 Izzy Valencia CMA Start : 10-May-2019 Active Comments: E11.9 Start: 05-10-2019 Comment on above: E11.9 Pen [place] 31G X 8 MM Miscellaneous 1 (one) Injection qweek for 0 days Quantity: 1 {Box} Refills: 0 Ordered: 19-Mar-2021 Umesh DO, Lupe Umesh DO, Lupe Start : 19-Mar-2021 Active Start: 03-19-2021 True Metrix Bloo d Glucose Test In Vitro Strip 1 (one) Each one test daily for 0 days Quantity: 90 {Strip} Refills: 3 Ordered: 10-May-2019 Umseh DO, Lupe Umesh DO, Lupe Start : 10-May-2019 Active Comments: Mail order. Start: 05-10-2019 Comment on above: Mail order. TRUEplus Lancets 33G Miscellaneous 1 (one) each daily for 90 days Quantity: 90 {Each} Refills: 3 Ordered: 10-May-2019 Gravius MEASUREMENT ADVISOR, Izzy Start : 10-May-2019 Active Comments: E11.9 Start: 05-10-2019 Comment on above: E11.9 Pen [place] 31G X 8 MM Miscellaneous 1 (one) Injection qweek for 0 days Quantity: 1 {Box} Refills: 0 Ordered: 19-Mar-2021 Umesh DO, Lupe Umesh DO, Lupe Start : 19-Mar-2021 Active Start: 03-19-2021 True Metrix Bloo d Glucose Test In Vitro Strip 1 (one) Each one test daily for 0 days Quantity: 90 {Strip} Refills: 3 Ordered: 10-May-2019 Umesh DO, Lupe Umesh DO, Lupe Start : 10-May-2019 Active Comments: Mail order. Start: 05-10-2019 Comment on above: Mail order. TRUEplus Lancets 33G Miscellaneous 1 (one) each daily for 90 days Quantity: 90 {Each} Refills: 3 Ordered: 10-May-2019 Gravius MEASUREMENT ADVISOR, Izzy Start : 10-May-2019 Active Comments: E11.9 Start: 05-10-2019 Comment on above: E11.9 Pen [place] 31G X 8 MM Miscellaneous 1 (one) Injection qweek for 0 days Quantity: 1 {Box} Refills: 0 Ordered: 19-Mar-2021 Umesh DO, Lupe Umesh DO, Lupe Start : 19-Mar-2021 Active Start: 03-19-2021 True Metrix Bloo d Glucose Test In Vitro Strip 1 (one) Each one test daily for 0 days Quantity: 90 {Strip} Refills: 3 Ordered: 10-May-2019 Umesh DO, Lupe Umesh DO Lupe Start : 10-May-2019 Active Comments: Mail order. Start: 05-10-2019 Comment on above: Mail order. TRUEplus Lancets 33G Miscellaneous 1 (one) each daily for 90 days Quantity: 90 {Each} Refills: 3 Ordered: 10-May-2019 Osmel Valencia CMAin Start : 10-May-2019 Active Comments: E11.9 Start: 05-10-2019 Comment on above: E11.9 Pen [place] 31G X 8 MM Miscellaneous 1 (one) Injection qweek for 0 days Quantity: 1 {Box} Refills: 0 Ordered: 19-Mar-2021 Adelina Stauffer LPN Start : 19-Mar-2021 Active Start: 03-19-2021 True Metrix Bloo d Glucose Test In Vitro Strip 1 (one) Each one test daily for 0 days Quantity: 90 {Strip} Refills: 3 Ordered: 10-May-2019 Umesh DO, Lupe Umesh DOTomaLupe Start : 10-May-2019 Active Comments: Mail order. Start: 05-10-2019 Comment on above: Mail order. TRUEplus Lancets 33G Miscellaneous 1 (one) each daily for 90 days Quantity: 90 {Each} Refills: 3 Ordered: 10-May-2019 Izzy Valencia CMA Start : 10-May-2019 Active Comments: E11.9 Start: 05-10-2019 Comment on above: E11.9 Pen [place] 31G X 8 MM Miscellaneous 1 (one) Injection qweek for 0 days Quantity: 1 {Box} Refills: 0 Ordered: 19-Mar-2021 Adelina Stauffer LPN Start : 19-Mar-2021 Active Start: 03-19-2021 True Metrix Bloo d Glucose Test In Vitro Strip 1 (one) Each one test daily for 0 days Quantity: 90 {Strip} Refills: 3 Ordered: 10-May-2019 Umesh DO, Lupe Umesh DO Lupe Start : 10-May-2019 Active Comments: Mail order. Start: 05-10-2019 Comment on above: Mail order. TRUEplus Lancets 33G Miscellaneous 1 (one) each daily for 90 days Quantity: 90 {Each} Refills: 3 Ordered: 10-May-2019 Gravius MEASUREMENT ADVISOR, Izzy Start : 10-May-2019 Active Comments: E11.9 Start: 05-10-2019 Comment on above: E11.9 Pen [place] 31G X 8 MM Miscellaneous 1 (one) Injection qweek for 0 days Quantity: 1 {Box} Refills: 0 Ordered: 19-Mar-2021 Aedlina Stauffer LPN Start : 19-Mar-2021 Active Start: 03-19-2021 True Metrix Bloo d Glucose Test In Vitro Strip 1 (one) Each one test daily for 0 days Quantity: 90 {Strip} Refills: 3 Ordered: 10-May-2019 Lupe Calvo DO, DO, Kathleen Start : 10-May-2019 Active Comments: Mail order. Start: 05-10-2019 Comment on above: Mail order. TRUEplus Lancets 33G Miscellaneous 1 (one) each daily for 90 days Quantity: 90 {Each} Refills: 3 Ordered: 10-May-2019 Gravius MEASUREMENT ADVISOR, Izzy Start : 10-May-2019 Active Comments: E11.9 Start: 05-10-2019 Comment on above: E11.9 Pen [place] 31G X 8 MM Miscellaneous 1 (one) Injection qweek for 0 days Quantity: 1 {Box} Refills: 0 Ordered: 19-Mar-2021 Adelina Stauffer LPN Start : 19-Mar-2021 Active Start: 03-19-2021 True Metrix Bloo d Glucose Test In Vitro Strip 1 (one) Each one test daily for 0 days Quantity: 90 {Strip} Refills: 3 Ordered: 10-May-2019 Lupe Calvo DO, DO, Kathleen Start : 10-May-2019 Active Comments: Mail order. Start: 05-10-2019 Comment on above: Mail order. TRUEplus Lancets 33G Miscellaneous 1 (one) each daily for 90 days Quantity: 90 {Each} Refills: 3 Ordered: 10-May-2019 Gravius MEASUREMENT ADVISOR, Izzy Start : 10-May-2019 Active Comments: E11.9 Start: 05-10-2019 Comment on above: E11.9 Pen [place] 31G X 8 MM Miscellaneous 1 (one) Injection qweek for 0 days Quantity: 1 {Box} Refills: 0 Ordered: 19-Mar-2021 Adelina Stauffer LPN Start : 19-Mar-2021 Active Start: 03-19-2021 True Metrix Bloo d Glucose Test In Vitro Strip 1 (one) Each one test daily for 0 days Quantity: 90 {Strip} Refills: 3 Ordered: 10-May-2019 Umesh IRAHETA Lupe Calvo DO Lupe Start : 10-May-2019 Active Comments: Mail order. Start: 05-10-2019 Comment on above: Mail order. TRUEplus Lancets 33G Miscellaneous 1 (one) each daily for 90 days Quantity: 90 {Each} Refills: 3 Ordered: 10-May-2019 Gravius MEASUREMENT ADVISOR, Izzy Start : 10-May-2019 Active Comments: E11.9 Start: 05-10-2019 Comment on above: E11.9 Pen [place] 31G X 8 MM Miscellaneous 1 (one) Injection qweek for 0 days Quantity: 1 {Box} Refills: 0 Ordered: 19-Mar-2021 Adelina Stauffer LPN Start : 19-Mar-2021 Active Start: 03-19-2021 True Metrix Bloo d Glucose Test In Vitro Strip 1 (one) Each one test daily for 0 days Quantity: 90 {Strip} Refills: 3 Ordered: 10-May-2019 Umesh IRAHETA, Lupe Calvo DO Lupe Start : 10-May-2019 Active Comments: Mail order. Start: 05-10-2019 Comment on above: Mail order. TRUEplus Lancets 33G Miscellaneous 1 (one) each daily for 90 days Quantity: 90 {Each} Refills: 3 Ordered: 10-May-2019 Annie GIBBS, Izzy Start : 10-May-2019 Active Comments: E11.9 Start: 05-10-2019 Comment on above: E11.9 Pen [place] 31G X 8 MM Miscellaneous 1 (one) Injection qweek for 0 days Quantity: 1 {Box} Refills: 0 Ordered: 19-Mar-2021 Adelina Stafufer LPN Start : 19-Mar-2021 Active Start: 03-19-2021 True Metrix Bloo d Glucose Test In Vitro Strip 1 (one) Each one test daily for 0 days Quantity: 90 {Strip} Refills: 3 Ordered: 10-May-2019 Umesh DO, Lupe Calvo DO, Lupe Start : 10-May-2019 Active Comments: Mail order. Start: 05-10-2019 Comment on above: Mail order. TRUEplus Lancets 33G Miscellaneous 1 (one) each daily for 90 days Quantity: 90 {Each} Refills: 3 Ordered: 10-May-2019 Annie GIBBS Izzy Start : 10-May-2019 Active Comments: E11.9 Start: 05-10-2019 Comment on above: E11.9 True Metrix Bloo d Glucose Test In Vitro Strip 1 (one) Each one test daily for 0 days Quantity: 90 {Strip} Refills: 3 Ordered: 10-May-2019 Umesh DO, Lupe Calvo DO Lupe Start : 10-May-2019 Active Comments: Mail order. Start: 05-10-2019 Comment on above: Mail order. Pen [place] 31G X 8 MM Miscellaneous 1 (one) Injection qweek for 0 days Quantity: 1 {Box} Refills: 0 Ordered: 19-Mar-2021 Adelina Stauffer LPN Start : 19-Mar-2021 Active Start: 03-19-2021 True Metrix Bloo d Glucose Test In Vitro Strip 1 (one) Each one test daily for 0 days Quantity: 90 {Strip} Refills: 3 Ordered: 10-May-2019 Umesh DO, Lupe Calvo DO Lupe Start : 10-May-2019 Active Comments: Mail order. Start: 05-10-2019 Comment on above: Mail order. TRUEplus Lancets 33G Miscellaneous 1 (one) each daily for 90 days Quantity: 90 {Each} Refills: 3 Ordered: 10-May-2019 Annie GIBBS, Izzy Start : 10-May-2019 Active Comments: E11.9 Start: 05-10-2019 Comment on above: E11.9 Pen [place] 31G X 8 MM Miscellaneous 1 (one) Injection qweek for 0 days Quantity: 1 {Box} Refills: 0 Ordered: 19-Mar-2021 Adelina Stauffer LPN Start : 19-Mar-2021 Active Start: 03-19-2021 True Metrix Bloo d Glucose Test In Vitro Strip 1 (one) Each one test daily for 0 days Quantity: 90 {Strip} Refills: 3 Ordered: 10-May-2019 Lupe Calvo DO, DO, Kathleen Start : 10-May-2019 Active Comments: Mail order. Start: 05-10-2019 Comment on above: Mail order. TRUEplus Lancets 33G Miscellaneous 1 (one) each daily for 90 days Quantity: 90 {Each} Refills: 3 Ordered: 10-May-2019 Osmel Valencia CMAin Start : 10-May-2019 Active Comments: E11.9 Start: 05-10-2019 Comment on above: E11.9 Pen [place] 31G X 8 MM Miscellaneous 1 (one) Injection qweek for 0 days Quantity: 1 {Box} Refills: 0 Ordered: 19-Mar-2021 Adelina Stauffer LPN Start : 19-Mar-2021 Active Start: 03-19-2021 True Metrix Bloo d Glucose Test In Vitro Strip 1 (one) Each one test daily for 0 days Quantity: 90 {Strip} Refills: 3 Ordered: 10-May-2019 Lupe Calvo DO, DO, Kathleen Start : 10-May-2019 Active Comments: Mail order. Start: 05-10-2019 Comment on above: Mail order. TRUEplus Lancets 33G Miscellaneous 1 (one) each daily for 90 days Quantity: 90 {Each} Refills: 3 Ordered: 10-May-2019 Izzy Valencia CMA Start : 10-May-2019 Active Comments: E11.9 Start: 05-10-2019 Comment on above: E11.9 Pen [place] 31G X 8 MM Miscellaneous 1 (one) Injection qweek for 0 days Quantity: 1 {Box} Refills: 0 Ordered: 19-Mar-2021 Adelina Staufefr LPN Start : 19-Mar-2021 Active Start: 03-19-2021 True Metrix Bloo d Glucose Test In Vitro Strip 1 (one) Each one test daily for 0 days Quantity: 90 {Strip} Refills: 3 Ordered: 10-May-2019 Lupe Calvo DO, DO, Kathleen Start : 10-May-2019 Active Comments: Mail order. Start: 05-10-2019 Comment on above: Mail order. TRUEplus Lancets 33G Miscellaneous 1 (one) each daily for 90 days Quantity: 90 {Each} Refills: 3 Ordered: 10-May-2019 Osmel Valencia CMAin Start : 10-May-2019 Active Comments: E11.9 Start: 05-10-2019 Comment on above: E11.9 Pen [place] 31G X 8 MM Miscellaneous 1 (one) Injection qweek for 0 days Quantity: 1 {Box} Refills: 0 Ordered: 19-Mar-2021 Adelina Stauffer LPN Start : 19-Mar-2021 Active Start: 03-19-2021 True Metrix Bloo d Glucose Test In Vitro Strip 1 (one) Each one test daily for 0 days Quantity: 90 {Strip} Refills: 3 Ordered: 10-May-2019 Umesh DO, Lupe Umesh DOTomaLupe Start : 10-May-2019 Active Comments: Mail order. Start: 05-10-2019 Comment on above: Mail order. TRUEplus Lancets 33G Miscellaneous 1 (one) each daily for 90 days Quantity: 90 {Each} Refills: 3 Ordered: 10-May-2019 Osmel Valencia CMAin Start : 10-May-2019 Active Comments: E11.9 Start: 05-10-2019 Comment on above: E11.9 Pen [place] 31G X 8 MM Miscellaneous 1 (one) Injection qweek for 0 days Quantity: 1 {Box} Refills: 0 Ordered: 19-Mar-2021 Adelina Stauffer LPN Start : 19-Mar-2021 Active Start: 03-19-2021 True Metrix Bloo d Glucose Test In Vitro Strip 1 (one) Each one test daily for 0 days Quantity: 90 {Strip} Refills: 3 Ordered: 10-May-2019 Umesh DO, Lupe Umesh DOTomaLupe Start : 10-May-2019 Active Comments: Mail order. Start: 05-10-2019 Comment on above: Mail order. TRUEplus Lancets 33G Miscellaneous 1 (one) each daily for 90 days Quantity: 90 {Each} Refills: 3 Ordered: 10-May-2019 Osmel Valencia CMAin Start : 10-May-2019 Active Comments: E11.9 Start: 05-10-2019 Comment on above: E11.9 [place] 31G X 8 MM Miscellaneous 1 (one) Injection qweek for 0 days Quantity: 1 {Box} Refills: 0 Ordered: 19-Mar-2021 Adelina Stauffer LPN Start : 19-Mar-2021 Active Start: 03-19-2021 True Metrix Bloo d Glucose Test In Vitro Strip 1 (one) Each one test daily for 0 days Quantity: 90 {Strip} Refills: 3 Ordered: 10-May-2019 Umesh IRAHEAT, Lupe Dueñas DO Start : 10-May-2019 Active Comments: Mail order. Start: 05-10-2019 Comment on above: Mail order. TRUEplus Lancets 33G Miscellaneous 1 (one) each daily for 90 days Quantity: 90 {Each} Refills: 3 Ordered: 10-May-2019 Gravius MEASUREMENT ADVISOR Izzy Start : 10-May-2019 Active Comments: E11.9 Start: 05-10-2019 Comment on above: E11.9 pen needle, diab etic 31 gauge x 5/16 miscellaneous Needle 1 (one) Injection qweek for 0 days Quantity: 1 {Box} Refills: 0 Ordered: 30-Jul-2023 BEN Willis LPN Start : 19-Mar-2021 End : 30-Jul-2023 Inactive Start: 03-19-2021 End: 07-30-2023 True Metrix Gluc ose Test Strip miscellaneous Strip 1 (one) Each one test daily for 0 days Quantity: 90 {Strip} Refills: 3 Ordered: 30-Jul-2023 BEN Willis LPN Start : 10-May-2019 End : 30-Jul-2023 Inactive Comments: Mail order. Start: 05-10-2019 End: 07-30-2023 Comment on above: Mail order. TRUEplus Lancets 33 gauge miscellaneous Each 1 (one) each daily for 90 days Quantity: 90 {Each} Refills: 3 Ordered: 30-Jul-2023 BEN Willis LPN Start : 10-May-2019 End : 30-Jul-2023 Inactive Comments: E11.9 Start: 05-10-2019 End: 07-30-2023 Comment on above: E11.9 Clinical Notes Note Date & Type Note Facility Evaluation note No assessment information availa [facility] Work Phone: Instructions Name How to Access Health Information Online using Patient Portal and [employer] Apps Indication:Current nonsmoker (Renamed from Current non-smoker) Start: Instruction Type:Patient Education Patient Instructions Indication:Current nonsmoker (Renamed from Current non-smoker) Start: Instruction Type:Provider Instructions for Treatment How to Access Health Information Online using Patient Portal and [employer] Apps Indication:Current nonsmoker (Renamed from Current non-smoker) Start:05-Mar-2021 Instruction Type:Patient Education Patient Instructions Indication:Current nonsmoker (Renamed from Current non-smoker) Start:05-Mar-2021 Instruction Type:Provider Instructions for Treatment How to Access Health Information Online using Patient Portal and [employer] Apps Indication:Current nonsmoker (Renamed from Current non-smoker) Start: Instruction Type:Patient Education Patient Instructions Indication:Current nonsmoker (Renamed from Current non-smoker) Start: Instruction Type:Provider Instructions for Treatment Patient Instructions Indication:Current nonsmoker (Renamed from Current non-smoker) Start: Instruction Type:Provider Instructions for Treatment How to Access Health Information Online using Patient Portal and [employer] Apps Indication:Current nonsmoker (Renamed from Current non-smoker) Start: Instruction Type:Patient Education How to Access Health Information Online using Patient Portal and [employer] Apps Indication:Current nonsmoker (Renamed from Current non-smoker) Start: Instruction Type:Patient Education Patient Instructions Indication:Current nonsmoker (Renamed from Current non-smoker) Start: Instruction Type:Provider Instructions for Treatment obesity counseling Indication:Uncontrolled type 2 diabetes mellitus Start: Instruction Type:Provider Instructions for Treatment How to Access Health Information Online using Patient Portal and [employer] Apps Indication:Current nonsmoker (Renamed from Current non-smoker) Start: Instruction Type:Patient Education Patient Instructions Indication:Current nonsmoker (Renamed from Current non-smoker) Start: Instruction Type:Provider Instructions for Treatment How to access health information online Indication:Current nonsmoker (Renamed from Current non-smoker) Start: 0 Instruction Type:Patient Education How to access health information online - Detail Indication:Current nonsmoker (Renamed from Current non-smoker) Start: 0 Instruction Type:Patient Education Patient Instructions Indication:Current nonsmoker (Renamed from Current non-smoker) Start: 0 Instruction Type:Provider Instructions for Treatment How to access health information online Indication:BMI 38.0-38.9,adult Start: 9 Instruction Type:Patient Education How to access health information online - Detail Indication:BMI 38.0-38.9,adult Start: 9 Instruction Type:Patient Education Patient Instructions Indication:BMI 38.0-38.9,adult Start: 9 Instruction Type:Provider Instructions for Treatment Patient Instructions Indication:Encounter for annual general medical examination with abnormal findings in adult Start: 8 Instruction Type:Provider Instructions for Treatment obesity counseling Indication:Uncontrolled type 2 diabetes mellitus Start: 8 Instruction Type:Provider Instructions for Treatment How to access health information online Indication:Dysuria Start: 8 Instruction Type:Patient Education How to access health information online - Detail Indication:Dysuria Start: 8 Instruction Type:Patient Education Patient Instructions Indication:Dysuria Start: 8 Instruction Type:Provider Instructions for Treatment How to access health information online Indication:Uncontrolled type 2 diabetes mellitus Start:05-May-2018 Instruction Type:Patient Education How to access health information online - Detail Indication:Uncontrolled type 2 diabetes mellitus Start:05-May-2018 Instruction Type:Patient Education Patient Instructions Indication:Uncontrolled type 2 diabetes mellitus Start:05-May-2018 Instruction Type:Provider Instructions for Treatment How to access health information online Indication:Diabetes type 2, controlled Start:30-Dec-2017 Instruction Type:Patient Education How to access health information online - Detail Indication:Diabetes type 2, controlled Start:30-Dec-2017 Instruction Type:Patient Education Patient Instructions Indication:Diabetes type 2, controlled Start:30-Dec-2017 Instruction Type:Provider Instructions for Treatment How to access health information online Indication:Low back pain Start:06-Dec-2017 Instruction Type:Patient Education How to access health information online - Detail Indication:Low back pain Start:06-Dec-2017 Instruction Type:Patient Education Patient Instructions Indication:Low back pain Start:06-Dec-2017 Instruction Type:Provider Instructions for Treatment How to access health information online Indication:Lower abdominal pain Start:03-Dec-2017 Instruction Type:Patient Education How to access health information online - Detail Indication:Lower abdominal pain Start:03-Dec-2017 Instruction Type:Patient Education Patient Instructions Indication:Lower abdominal pain Start:03-Dec-2017 Instruction Type:Provider Instructions for Treatment How to access health information online Indication:Diabetes type 2, controlled Start: Instruction Type:Patient Education How to access health information online - Detail Indication:Diabetes type 2, controlled Start: Instruction Type:Patient Education Patient Instructions Indication:Diabetes type 2, controlled Start: Instruction Type:Provider Instructions for Treatment How to access health information online Indication:Diabetes type 2, controlled Start: Instruction Type:Patient Education How to access health information online - Detail Indication:Diabetes type 2, controlled Start: Instruction Type:Patient Education Patient Instructions Indication:Diabetes type 2, controlled Start: Instruction Type:Provider Instructions for Treatment How to access health information online Indication:Current smoker Start: Instruction Type:Patient Education How to access health information online - Detail Indication:Current smoker Start: Instruction Type:Patient Education Patient Instructions Indication:Current smoker Start: Instruction Type:Provider Instructions for Treatment How to access health information online Indication:Current nonsmoker (Renamed from Current non-smoker) Start: Instruction Type:Patient Education How to access health information online - Detail Indication:Current nonsmoker (Renamed from Current non-smoker) Start: Instruction Type:Patient Education Patient Instructions Indication:Current nonsmoker (Renamed from Current non-smoker) Start: Instruction Type:Provider Instructions for Treatment How to access health information online Indication:Hypertension Start: Instruction Type:Patient Education How to access health information online - Detail Indication:Hypertension Start: Instruction Type:Patient Education Patient Instructions Indication:Hypertension Start: Instruction Type:Provider Instructions for Treatment How to access health information online Indication:Hypertension Start:03-Apr-2016 Instruction Type:Patient Education How to access health information online - Detail Indication:Hypertension Start:03-Apr-2016 Instruction Type:Patient Education Patient Instructions Indication:Hypertension Start:03-Apr-2016 Instruction Type:Provider Instructions for Treatment How to access health information online Indication:Leg wound, left Start: 5 Instruction Type:Patient Education How to access health information online - Detail Indication:Leg wound, left Start: 5 Instruction Type:Patient Education Patient Instructions Indication:Leg wound, left Start: 5 Instruction Type:Provider Instructions for Treatment How to access health information online Indication:Hypertension Start: 5 Instruction Type:Patient Education How to access health information online - Detail Indication:Hypertension Start: 5 Instruction Type:Patient Education Patient Instructions Indication:Hypertension Start: 5 Instruction Type:Provider Instructions for Treatment Patient Instructions Indication:Hypertension Start: 5 Instruction Type:Provider Instructions for Treatment Patient Instructions Indication:Infection Start: 3 Instruction Type:Provider Instructions for Treatment Patient Instructions Indication:Infection Start: 3 Instruction Type:Provider Instructions for Treatment Patient Instructions Indication:Infection Start: 3 Instruction Type:Provider Instructions for Treatment Patient Instructions Indication:Infection Start: 3 Instruction Type:Provider Instructions for Treatment Patient Instructions Indication:Hypertension Start:30-Jun-2013 Instruction Type:Provider Instructions for Treatment Patient Instructions Indication:Arthritis Start:30-Jun-2013 Instruction Type:Provider Instructions for Treatment [facility]; [facility] Work Phone: Instructions* Name Dates Details How to Access Health Informa tion Online using Patient Portal and [employer] Indication:Current nonsmoker (Renamed from Current non-smoker) Start:19-Mar-2021 Instruction Type:Patient Education Patient Instructions Indication:Current nonsmoker (Renamed from Current non-smoker) Start:19-Mar-2021 Instruction Type:Provider Instructions for Treatment How to Access Health Informa tion Online using Patient Portal and [employer] Apps Indication:Current nonsmoker (Renamed from Current non-smoker) Start:05-Mar-2021 Instruction Type:Patient Education Patient Instructions Indication:Current nonsmoker (Renamed from Current non-smoker) Start:05-Mar-2021 Instruction Type:Provider Instructions for Treatment How to Access Health Informa tion Online using Patient Portal and [employer] Indication:Current nonsmoker (Renamed from Current non-smoker) Start:20-Feb-2021 Instruction Type:Patient Education Patient Instructions Indication:Current nonsmoker (Renamed from Current non-smoker) Start:20-Feb-2021 Instruction Type:Provider Instructions for Treatment Patient Instructions Indication:Current nonsmoker (Renamed from Current non-smoker) Start:10-Feb-2021 Instruction Type:Provider Instructions for Treatment How to Access Health Informa tion Online using Patient Portal and [employer] Apps Indication:Current nonsmoker (Renamed from Current non-smoker) Start:10-Feb-2021 Instruction Type:Patient Education How to Access Health Informa tion Online using Patient Portal and [employer] Apps Indication:Current nonsmoker (Renamed from Current non-smoker) Start:25-Dec-2020 Instruction Type:Patient Education Patient Instructions Indication:Current nonsmoker (Renamed from Current non-smoker) Start:25-Dec-2020 Instruction Type:Provider Instructions for Treatment obesity counseling Indication:Uncontrolled type 2 diabetes mellitus Start:09-Dec-2020 Instruction Type:Provider Instructions for Treatment How to Access Health Informa tion Online using Patient Portal and [employer] Apps Indication:Current nonsmoker (Renamed from Current non-smoker) Start:09-Dec-2020 Instruction Type:Patient Education Patient Instructions Indication:Current nonsmoker (Renamed from Current non-smoker) Start:09-Dec-2020 Instruction Type:Provider Instructions for Treatment How to access health informa tion online Indication:Current nonsmoker (Renamed from Current non-smoker) Start:16-Oct-2020 Instruction Type:Patient Education How to access health informa tion online - Detail Indication:Current nonsmoker (Renamed from Current non-smoker) Start:16-Oct-2020 Instruction Type:Patient Education Patient Instructions Indication:Current nonsmoker (Renamed from Current non-smoker) Start:16-Oct-2020 Instruction Type:Provider Instructions for Treatment How to access health informa tion online Indication:BMI 38.0-38.9,adult Start:15-Dec-2018 Instruction Type:Patient Education How to access health informa tion online - Detail Indication:BMI 38.0-38.9,adult Start:15-Dec-2018 Instruction Type:Patient Education Patient Instructions Indication:BMI 38.0-38.9,adult Start:15-Dec-2018 Instruction Type:Provider Instructions for Treatment Patient Instructions Indication:Encounter for annual general medical examination with abnormal findings in adult Start:09-Sep-2018 Instruction Type:Provider Instructions for Treatment obesity counseling Indication:Uncontrolled type 2 diabetes mellitus Start:09-Sep-2018 Instruction Type:Provider Instructions for Treatment How to access health informa tion online Indication:Dysuria Start:24-Aug-2018 Instruction Type:Patient Education How to access health informa tion online - Detail Indication:Dysuria Start:24-Aug-2018 Instruction Type:Patient Education Patient Instructions Indication:Dysuria Start:24-Aug-2018 Instruction Type:Provider Instructions for Treatment How to access health informa tion online Indication:Uncontrolled type 2 diabetes mellitus Start:05-May-2018 Instruction Type:Patient Education How to access health informa tion online - Detail Indication:Uncontrolled type 2 diabetes mellitus Start:05-May-2018 Instruction Type:Patient Education Patient Instructions Indication:Uncontrolled type 2 diabetes mellitus Start:05-May-2018 Instruction Type:Provider Instructions for Treatment How to access health informa tion online Indication:Diabetes type 2, controlled Start:30-Dec-2017 Instruction Type:Patient Education How to access health informa tion online - Detail Indication:Diabetes type 2, controlled Start:30-Dec-2017 Instruction Type:Patient Education Patient Instructions Indication:Diabetes type 2, controlled Start:30-Dec-2017 Instruction Type:Provider Instructions for Treatment How to access health informa tion online Indication:Low back pain Start:06-Dec-2017 Instruction Type:Patient Education How to access health informa tion online - Detail Indication:Low back pain Start:06-Dec-2017 Instruction Type:Patient Education Patient Instructions Indication:Low back pain Start:06-Dec-2017 Instruction Type:Provider Instructions for Treatment How to access health informa tion online Indication:Lower abdominal pain Start:03-Dec-2017 Instruction Type:Patient Education How to access health informa tion online - Detail Indication:Lower abdominal pain Start:03-Dec-2017 Instruction Type:Patient Education Patient Instructions Indication:Lower abdominal pain Start:03-Dec-2017 Instruction Type:Provider Instructions for Treatment How to access health informa tion online Indication:Diabetes type 2, controlled Start:24-Sep-2017 Instruction Type:Patient Education How to access health informa tion online - Detail Indication:Diabetes type 2, controlled Start:24-Sep-2017 Instruction Type:Patient Education Patient Instructions Indication:Diabetes type 2, controlled Start:24-Sep-2017 Instruction Type:Provider Instructions for Treatment How to access health informa tion online Indication:Diabetes type 2, controlled Start:20-May-2017 Instruction Type:Patient Education How to access health informa tion online - Detail Indication:Diabetes type 2, controlled Start:20-May-2017 Instruction Type:Patient Education Patient Instructions Indication:Diabetes type 2, controlled Start:20-May-2017 Instruction Type:Provider Instructions for Treatment How to access health informa tion online Indication:Current smoker Start:14-Jan-2017 Instruction Type:Patient Education How to access health informa tion online - Detail Indication:Current smoker Start:14-Jan-2017 Instruction Type:Patient Education Patient Instructions Indication:Current smoker Start:14-Jan-2017 Instruction Type:Provider Instructions for Treatment How to access health informa tion online Indication:Current nonsmoker (Renamed from Current non-smoker) Start:11-Jan-2017 Instruction Type:Patient Education How to access health informa tion online - Detail Indication:Current nonsmoker (Renamed from Current non-smoker) Start:11-Jan-2017 Instruction Type:Patient Education Patient Instructions Indication:Current nonsmoker (Renamed from Current non-smoker) Start:11-Jan-2017 Instruction Type:Provider Instructions for Treatment How to access health informa tion online Indication:Hypertension Start:09-Sep-2016 Instruction Type:Patient Education How to access health informa tion online - Detail Indication:Hypertension Start:09-Sep-2016 Instruction Type:Patient Education Patient Instructions Indication:Hypertension Start:09-Sep-2016 Instruction Type:Provider Instructions for Treatment How to access health informa tion online Indication:Hypertension Start:03-Apr-2016 Instruction Type:Patient Education How to access health informa tion online - Detail Indication:Hypertension Start:03-Apr-2016 Instruction Type:Patient Education Patient Instructions Indication:Hypertension Start:03-Apr-2016 Instruction Type:Provider Instructions for Treatment How to access health informa tion online Indication:Leg wound, left Start:08-Oct-2015 Instruction Type:Patient Education How to access health informa tion online - Detail Indication:Leg wound, left Start:08-Oct-2015 Instruction Type:Patient Education Patient Instructions Indication:Leg wound, left Start:08-Oct-2015 Instruction Type:Provider Instructions for Treatment How to access health informa tion online Indication:Hypertension Start:20-Sep-2015 Instruction Type:Patient Education How to access health informa tion online - Detail Indication:Hypertension Start:20-Sep-2015 Instruction Type:Patient Education Patient Instructions Indication:Hypertension Start:20-Sep-2015 Instruction Type:Provider Instructions for Treatment Patient Instructions Indication:Hypertension Start:10-May-2015 Instruction Type:Provider Instructions for Treatment Patient Instructions Indication:Infection Start:28-Aug-2013 Instruction Type:Provider Instructions for Treatment Patient Instructions Indication:Infection Start:25-Aug-2013 Instruction Type:Provider Instructions for Treatment Patient Instructions Indication:Infection Start:24-Aug-2013 Instruction Type:Provider Instructions for Treatment Patient Instructions Indication:Infection Start:23-Aug-2013 Instruction Type:Provider Instructions for Treatment Patient Instructions Indication:Hypertension Start:30-Jun-2013 Instruction Type:Provider Instructions for Treatment Patient Instructions Indication:Arthritis Start:30-Jun-2013 Instruction Type:Provider Instructions for Treatment [facility]; [facility] Work Phone: Instructions* Name Dates Details How to Access Health Informa tion Online using Patient Portal and [employer] Indication:Current nonsmoker (Renamed from Current non-smoker) Start:19-Mar-2021 Instruction Type:Patient Education Patient Instructions Indication:Current nonsmoker (Renamed from Current non-smoker) Start:19-Mar-2021 Instruction Type:Provider Instructions for Treatment How to Access Health Informa tion Online using Patient Portal and [employer] Apps Indication:Current nonsmoker (Renamed from Current non-smoker) Start:05-Mar-2021 Instruction Type:Patient Education Patient Instructions Indication:Current nonsmoker (Renamed from Current non-smoker) Start:05-Mar-2021 Instruction Type:Provider Instructions for Treatment How to Access Health Informa tion Online using Patient Portal and [employer] Apps Indication:Current nonsmoker (Renamed from Current non-smoker) Start:20-Feb-2021 Instruction Type:Patient Education Patient Instructions Indication:Current nonsmoker (Renamed from Current non-smoker) Start:20-Feb-2021 Instruction Type:Provider Instructions for Treatment Patient Instructions Indication:Current nonsmoker (Renamed from Current non-smoker) Start:10-Feb-2021 Instruction Type:Provider Instructions for Treatment How to Access Health Informa tion Online using Patient Portal and [employer] Apps Indication:Current nonsmoker (Renamed from Current non-smoker) Start:10-Feb-2021 Instruction Type:Patient Education How to Access Health Informa tion Online using Patient Portal and [employer] Apps Indication:Current nonsmoker (Renamed from Current non-smoker) Start:25-Dec-2020 Instruction Type:Patient Education Patient Instructions Indication:Current nonsmoker (Renamed from Current non-smoker) Start:25-Dec-2020 Instruction Type:Provider Instructions for Treatment obesity counseling Indication:Uncontrolled type 2 diabetes mellitus Start:09-Dec-2020 Instruction Type:Provider Instructions for Treatment How to Access Health Informa tion Online using Patient Portal and [employer] Apps Indication:Current nonsmoker (Renamed from Current non-smoker) Start:09-Dec-2020 Instruction Type:Patient Education Patient Instructions Indication:Current nonsmoker (Renamed from Current non-smoker) Start:09-Dec-2020 Instruction Type:Provider Instructions for Treatment How to access health informa tion online Indication:Current nonsmoker (Renamed from Current non-smoker) Start:16-Oct-2020 Instruction Type:Patient Education How to access health informa tion online - Detail Indication:Current nonsmoker (Renamed from Current non-smoker) Start:16-Oct-2020 Instruction Type:Patient Education Patient Instructions Indication:Current nonsmoker (Renamed from Current non-smoker) Start:16-Oct-2020 Instruction Type:Provider Instructions for Treatment How to access health informa tion online Indication:BMI 38.0-38.9,adult Start:15-Dec-2018 Instruction Type:Patient Education How to access health informa tion online - Detail Indication:BMI 38.0-38.9,adult Start:15-Dec-2018 Instruction Type:Patient Education Patient Instructions Indication:BMI 38.0-38.9,adult Start:15-Dec-2018 Instruction Type:Provider Instructions for Treatment Patient Instructions Indication:Encounter for annual general medical examination with abnormal findings in adult Start:09-Sep-2018 Instruction Type:Provider Instructions for Treatment obesity counseling Indication:Uncontrolled type 2 diabetes mellitus Start:09-Sep-2018 Instruction Type:Provider Instructions for Treatment How to access health informa tion online Indication:Dysuria Start:24-Aug-2018 Instruction Type:Patient Education How to access health informa tion online - Detail Indication:Dysuria Start:24-Aug-2018 Instruction Type:Patient Education Patient Instructions Indication:Dysuria Start:24-Aug-2018 Instruction Type:Provider Instructions for Treatment How to access health informa tion online Indication:Uncontrolled type 2 diabetes mellitus Start:05-May-2018 Instruction Type:Patient Education How to access health informa tion online - Detail Indication:Uncontrolled type 2 diabetes mellitus Start:05-May-2018 Instruction Type:Patient Education Patient Instructions Indication:Uncontrolled type 2 diabetes mellitus Start:05-May-2018 Instruction Type:Provider Instructions for Treatment How to access health informa tion online Indication:Diabetes type 2, controlled Start:30-Dec-2017 Instruction Type:Patient Education How to access health informa tion online - Detail Indication:Diabetes type 2, controlled Start:30-Dec-2017 Instruction Type:Patient Education Patient Instructions Indication:Diabetes type 2, controlled Start:30-Dec-2017 Instruction Type:Provider Instructions for Treatment How to access health informa tion online Indication:Low back pain Start:06-Dec-2017 Instruction Type:Patient Education How to access health informa tion online - Detail Indication:Low back pain Start:06-Dec-2017 Instruction Type:Patient Education Patient Instructions Indication:Low back pain Start:06-Dec-2017 Instruction Type:Provider Instructions for Treatment How to access health informa tion online Indication:Lower abdominal pain Start:03-Dec-2017 Instruction Type:Patient Education How to access health informa tion online - Detail Indication:Lower abdominal pain Start:03-Dec-2017 Instruction Type:Patient Education Patient Instructions Indication:Lower abdominal pain Start:03-Dec-2017 Instruction Type:Provider Instructions for Treatment How to access health informa tion online Indication:Diabetes type 2, controlled Start:24-Sep-2017 Instruction Type:Patient Education How to access health informa tion online - Detail Indication:Diabetes type 2, controlled Start:24-Sep-2017 Instruction Type:Patient Education Patient Instructions Indication:Diabetes type 2, controlled Start:24-Sep-2017 Instruction Type:Provider Instructions for Treatment How to access health informa tion online Indication:Diabetes type 2, controlled Start:20-May-2017 Instruction Type:Patient Education How to access health informa tion online - Detail Indication:Diabetes type 2, controlled Start:20-May-2017 Instruction Type:Patient Education Patient Instructions Indication:Diabetes type 2, controlled Start:20-May-2017 Instruction Type:Provider Instructions for Treatment How to access health informa tion online Indication:Current smoker Start:14-Jan-2017 Instruction Type:Patient Education How to access health informa tion online - Detail Indication:Current smoker Start:14-Jan-2017 Instruction Type:Patient Education Patient Instructions Indication:Current smoker Start:14-Jan-2017 Instruction Type:Provider Instructions for Treatment How to access health informa tion online Indication:Current nonsmoker (Renamed from Current non-smoker) Start:11-Jan-2017 Instruction Type:Patient Education How to access health informa tion online - Detail Indication:Current nonsmoker (Renamed from Current non-smoker) Start:11-Jan-2017 Instruction Type:Patient Education Patient Instructions Indication:Current nonsmoker (Renamed from Current non-smoker) Start:11-Jan-2017 Instruction Type:Provider Instructions for Treatment How to access health informa tion online Indication:Hypertension Start:09-Sep-2016 Instruction Type:Patient Education How to access health informa tion online - Detail Indication:Hypertension Start:09-Sep-2016 Instruction Type:Patient Education Patient Instructions Indication:Hypertension Start:09-Sep-2016 Instruction Type:Provider Instructions for Treatment How to access health informa tion online Indication:Hypertension Start:03-Apr-2016 Instruction Type:Patient Education How to access health informa tion online - Detail Indication:Hypertension Start:03-Apr-2016 Instruction Type:Patient Education Patient Instructions Indication:Hypertension Start:03-Apr-2016 Instruction Type:Provider Instructions for Treatment How to access health informa tion online Indication:Leg wound, left Start:08-Oct-2015 Instruction Type:Patient Education How to access health informa tion online - Detail Indication:Leg wound, left Start:08-Oct-2015 Instruction Type:Patient Education Patient Instructions Indication:Leg wound, left Start:08-Oct-2015 Instruction Type:Provider Instructions for Treatment How to access health informa tion online Indication:Hypertension Start:20-Sep-2015 Instruction Type:Patient Education How to access health informa tion online - Detail Indication:Hypertension Start:20-Sep-2015 Instruction Type:Patient Education Patient Instructions Indication:Hypertension Start:20-Sep-2015 Instruction Type:Provider Instructions for Treatment Patient Instructions Indication:Hypertension Start:10-May-2015 Instruction Type:Provider Instructions for Treatment Patient Instructions Indication:Infection Start:28-Aug-2013 Instruction Type:Provider Instructions for Treatment Patient Instructions Indication:Infection Start:25-Aug-2013 Instruction Type:Provider Instructions for Treatment Patient Instructions Indication:Infection Start:24-Aug-2013 Instruction Type:Provider Instructions for Treatment Patient Instructions Indication:Infection Start:23-Aug-2013 Instruction Type:Provider Instructions for Treatment Patient Instructions Indication:Hypertension Start:30-Jun-2013 Instruction Type:Provider Instructions for Treatment Patient Instructions Indication:Arthritis Start:30-Jun-2013 Instruction Type:Provider Instructions for Treatment [facility]; [facility] Work Phone: Instructions* Name Dates Details How to Access Health Informa tion Online using Patient Portal and [employer] Apps Indication:Current nonsmoker (Renamed from Current non-smoker) Start:21-Apr-2021 Instruction Type:Patient Education Patient Instructions Indication:Current nonsmoker (Renamed from Current non-smoker) Start:21-Apr-2021 Instruction Type:Provider Instructions for Treatment How to Access Health Informa tion Online using Patient Portal and [employer] Apps Indication:Current nonsmoker (Renamed from Current non-smoker) Start:19-Mar-2021 Instruction Type:Patient Education Patient Instructions Indication:Current nonsmoker (Renamed from Current non-smoker) Start:19-Mar-2021 Instruction Type:Provider Instructions for Treatment How to Access Health Informa tion Online using Patient Portal and [employer] Apps Indication:Current nonsmoker (Renamed from Current non-smoker) Start:05-Mar-2021 Instruction Type:Patient Education Patient Instructions Indication:Current nonsmoker (Renamed from Current non-smoker) Start:05-Mar-2021 Instruction Type:Provider Instructions for Treatment How to Access Health Informa tion Online using Patient Portal and [employer] Apps Indication:Current nonsmoker (Renamed from Current non-smoker) Start:20-Feb-2021 Instruction Type:Patient Education Patient Instructions Indication:Current nonsmoker (Renamed from Current non-smoker) Start:20-Feb-2021 Instruction Type:Provider Instructions for Treatment Patient Instructions Indication:Current nonsmoker (Renamed from Current non-smoker) Start:10-Feb-2021 Instruction Type:Provider Instructions for Treatment How to Access Health Informa tion Online using Patient Portal and [employer] Apps Indication:Current nonsmoker (Renamed from Current non-smoker) Start:10-Feb-2021 Instruction Type:Patient Education How to Access Health Informa tion Online using Patient Portal and [employer] Apps Indication:Current nonsmoker (Renamed from Current non-smoker) Start:25-Dec-2020 Instruction Type:Patient Education Patient Instructions Indication:Current nonsmoker (Renamed from Current non-smoker) Start:25-Dec-2020 Instruction Type:Provider Instructions for Treatment obesity counseling Indication:Uncontrolled type 2 diabetes mellitus Start:09-Dec-2020 Instruction Type:Provider Instructions for Treatment How to Access Health Informa tion Online using Patient Portal and [employer] Apps Indication:Current nonsmoker (Renamed from Current non-smoker) Start:09-Dec-2020 Instruction Type:Patient Education Patient Instructions Indication:Current nonsmoker (Renamed from Current non-smoker) Start:09-Dec-2020 Instruction Type:Provider Instructions for Treatment How to access health informa tion online Indication:Current nonsmoker (Renamed from Current non-smoker) Start:16-Oct-2020 Instruction Type:Patient Education How to access health informa tion online - Detail Indication:Current nonsmoker (Renamed from Current non-smoker) Start:16-Oct-2020 Instruction Type:Patient Education Patient Instructions Indication:Current nonsmoker (Renamed from Current non-smoker) Start:16-Oct-2020 Instruction Type:Provider Instructions for Treatment How to access health informa tion online Indication:BMI 38.0-38.9,adult Start:15-Dec-2018 Instruction Type:Patient Education How to access health informa tion online - Detail Indication:BMI 38.0-38.9,adult Start:15-Dec-2018 Instruction Type:Patient Education Patient Instructions Indication:BMI 38.0-38.9,adult Start:15-Dec-2018 Instruction Type:Provider Instructions for Treatment Patient Instructions Indication:Encounter for annual general medical examination with abnormal findings in adult Start:09-Sep-2018 Instruction Type:Provider Instructions for Treatment obesity counseling Indication:Uncontrolled type 2 diabetes mellitus Start:09-Sep-2018 Instruction Type:Provider Instructions for Treatment How to access health informa tion online Indication:Dysuria Start:24-Aug-2018 Instruction Type:Patient Education How to access health informa tion online - Detail Indication:Dysuria Start:24-Aug-2018 Instruction Type:Patient Education Patient Instructions Indication:Dysuria Start:24-Aug-2018 Instruction Type:Provider Instructions for Treatment How to access health informa tion online Indication:Uncontrolled type 2 diabetes mellitus Start:05-May-2018 Instruction Type:Patient Education How to access health informa tion online - Detail Indication:Uncontrolled type 2 diabetes mellitus Start:05-May-2018 Instruction Type:Patient Education Patient Instructions Indication:Uncontrolled type 2 diabetes mellitus Start:05-May-2018 Instruction Type:Provider Instructions for Treatment How to access health informa tion online Indication:Diabetes type 2, controlled Start:30-Dec-2017 Instruction Type:Patient Education How to access health informa tion online - Detail Indication:Diabetes type 2, controlled Start:30-Dec-2017 Instruction Type:Patient Education Patient Instructions Indication:Diabetes type 2, controlled Start:30-Dec-2017 Instruction Type:Provider Instructions for Treatment How to access health informa tion online Indication:Low back pain Start:06-Dec-2017 Instruction Type:Patient Education How to access health informa tion online - Detail Indication:Low back pain Start:06-Dec-2017 Instruction Type:Patient Education Patient Instructions Indication:Low back pain Start:06-Dec-2017 Instruction Type:Provider Instructions for Treatment How to access health informa tion online Indication:Lower abdominal pain Start:03-Dec-2017 Instruction Type:Patient Education How to access health informa tion online - Detail Indication:Lower abdominal pain Start:03-Dec-2017 Instruction Type:Patient Education Patient Instructions Indication:Lower abdominal pain Start:03-Dec-2017 Instruction Type:Provider Instructions for Treatment How to access health informa tion online Indication:Diabetes type 2, controlled Start:24-Sep-2017 Instruction Type:Patient Education How to access health informa tion online - Detail Indication:Diabetes type 2, controlled Start:24-Sep-2017 Instruction Type:Patient Education Patient Instructions Indication:Diabetes type 2, controlled Start:24-Sep-2017 Instruction Type:Provider Instructions for Treatment How to access health informa tion online Indication:Diabetes type 2, controlled Start:20-May-2017 Instruction Type:Patient Education How to access health informa tion online - Detail Indication:Diabetes type 2, controlled Start:20-May-2017 Instruction Type:Patient Education Patient Instructions Indication:Diabetes type 2, controlled Start:20-May-2017 Instruction Type:Provider Instructions for Treatment How to access health informa tion online Indication:Current smoker Start:14-Jan-2017 Instruction Type:Patient Education How to access health informa tion online - Detail Indication:Current smoker Start:14-Jan-2017 Instruction Type:Patient Education Patient Instructions Indication:Current smoker Start:14-Jan-2017 Instruction Type:Provider Instructions for Treatment How to access health informa tion online Indication:Current nonsmoker (Renamed from Current non-smoker) Start:11-Jan-2017 Instruction Type:Patient Education How to access health informa tion online - Detail Indication:Current nonsmoker (Renamed from Current non-smoker) Start:11-Jan-2017 Instruction Type:Patient Education Patient Instructions Indication:Current nonsmoker (Renamed from Current non-smoker) Start:11-Jan-2017 Instruction Type:Provider Instructions for Treatment How to access health informa tion online Indication:Hypertension Start:09-Sep-2016 Instruction Type:Patient Education How to access health informa tion online - Detail Indication:Hypertension Start:09-Sep-2016 Instruction Type:Patient Education Patient Instructions Indication:Hypertension Start:09-Sep-2016 Instruction Type:Provider Instructions for Treatment How to access health informa tion online Indication:Hypertension Start:03-Apr-2016 Instruction Type:Patient Education How to access health informa tion online - Detail Indication:Hypertension Start:03-Apr-2016 Instruction Type:Patient Education Patient Instructions Indication:Hypertension Start:03-Apr-2016 Instruction Type:Provider Instructions for Treatment How to access health informa tion online Indication:Leg wound, left Start:08-Oct-2015 Instruction Type:Patient Education How to access health informa tion online - Detail Indication:Leg wound, left Start:08-Oct-2015 Instruction Type:Patient Education Patient Instructions Indication:Leg wound, left Start:08-Oct-2015 Instruction Type:Provider Instructions for Treatment How to access health informa tion online Indication:Hypertension Start:20-Sep-2015 Instruction Type:Patient Education How to access health informa tion online - Detail Indication:Hypertension Start:20-Sep-2015 Instruction Type:Patient Education Patient Instructions Indication:Hypertension Start:20-Sep-2015 Instruction Type:Provider Instructions for Treatment Patient Instructions Indication:Hypertension Start:10-May-2015 Instruction Type:Provider Instructions for Treatment Patient Instructions Indication:Infection Start:28-Aug-2013 Instruction Type:Provider Instructions for Treatment Patient Instructions Indication:Infection Start:25-Aug-2013 Instruction Type:Provider Instructions for Treatment Patient Instructions Indication:Infection Start:24-Aug-2013 Instruction Type:Provider Instructions for Treatment Patient Instructions Indication:Infection Start:23-Aug-2013 Instruction Type:Provider Instructions for Treatment Patient Instructions Indication:Hypertension Start:30-Jun-2013 Instruction Type:Provider Instructions for Treatment Patient Instructions Indication:Arthritis Start:30-Jun-2013 Instruction Type:Provider Instructions for Treatment [facility]; [facility] Work Phone: Instructions* Name Dates Details How to Access Health Informa tion Online using Patient Portal and [employer] Apps Indication:Current nonsmoker (Renamed from Current non-smoker) Start:21-Apr-2021 Instruction Type:Patient Education Patient Instructions Indication:Current nonsmoker (Renamed from Current non-smoker) Start:21-Apr-2021 Instruction Type:Provider Instructions for Treatment How to Access Health Informa tion Online using Patient Portal and [employer] Apps Indication:Current nonsmoker (Renamed from Current non-smoker) Start:19-Mar-2021 Instruction Type:Patient Education Patient Instructions Indication:Current nonsmoker (Renamed from Current non-smoker) Start:19-Mar-2021 Instruction Type:Provider Instructions for Treatment How to Access Health Informa tion Online using Patient Portal and [employer] Apps Indication:Current nonsmoker (Renamed from Current non-smoker) Start:05-Mar-2021 Instruction Type:Patient Education Patient Instructions Indication:Current nonsmoker (Renamed from Current non-smoker) Start:05-Mar-2021 Instruction Type:Provider Instructions for Treatment How to Access Health Informa tion Online using Patient Portal and [employer] Apps Indication:Current nonsmoker (Renamed from Current non-smoker) Start:20-Feb-2021 Instruction Type:Patient Education Patient Instructions Indication:Current nonsmoker (Renamed from Current non-smoker) Start:20-Feb-2021 Instruction Type:Provider Instructions for Treatment Patient Instructions Indication:Current nonsmoker (Renamed from Current non-smoker) Start:10-Feb-2021 Instruction Type:Provider Instructions for Treatment How to Access Health Informa tion Online using Patient Portal and [employer] Apps Indication:Current nonsmoker (Renamed from Current non-smoker) Start:10-Feb-2021 Instruction Type:Patient Education How to Access Health Informa tion Online using Patient Portal and [employer] Apps Indication:Current nonsmoker (Renamed from Current non-smoker) Start:25-Dec-2020 Instruction Type:Patient Education Patient Instructions Indication:Current nonsmoker (Renamed from Current non-smoker) Start:25-Dec-2020 Instruction Type:Provider Instructions for Treatment obesity counseling Indication:Uncontrolled type 2 diabetes mellitus Start:09-Dec-2020 Instruction Type:Provider Instructions for Treatment How to Access Health Informa tion Online using Patient Portal and [employer] Apps Indication:Current nonsmoker (Renamed from Current non-smoker) Start:09-Dec-2020 Instruction Type:Patient Education Patient Instructions Indication:Current nonsmoker (Renamed from Current non-smoker) Start:09-Dec-2020 Instruction Type:Provider Instructions for Treatment How to access health informa tion online Indication:Current nonsmoker (Renamed from Current non-smoker) Start:16-Oct-2020 Instruction Type:Patient Education How to access health informa tion online - Detail Indication:Current nonsmoker (Renamed from Current non-smoker) Start:16-Oct-2020 Instruction Type:Patient Education Patient Instructions Indication:Current nonsmoker (Renamed from Current non-smoker) Start:16-Oct-2020 Instruction Type:Provider Instructions for Treatment How to access health informa tion online Indication:BMI 38.0-38.9,adult Start:15-Dec-2018 Instruction Type:Patient Education How to access health informa tion online - Detail Indication:BMI 38.0-38.9,adult Start:15-Dec-2018 Instruction Type:Patient Education Patient Instructions Indication:BMI 38.0-38.9,adult Start:15-Dec-2018 Instruction Type:Provider Instructions for Treatment Patient Instructions Indication:Encounter for annual general medical examination with abnormal findings in adult Start:09-Sep-2018 Instruction Type:Provider Instructions for Treatment obesity counseling Indication:Uncontrolled type 2 diabetes mellitus Start:09-Sep-2018 Instruction Type:Provider Instructions for Treatment How to access health informa tion online Indication:Dysuria Start:24-Aug-2018 Instruction Type:Patient Education How to access health informa tion online - Detail Indication:Dysuria Start:24-Aug-2018 Instruction Type:Patient Education Patient Instructions Indication:Dysuria Start:24-Aug-2018 Instruction Type:Provider Instructions for Treatment How to access health informa tion online Indication:Uncontrolled type 2 diabetes mellitus Start:05-May-2018 Instruction Type:Patient Education How to access health informa tion online - Detail Indication:Uncontrolled type 2 diabetes mellitus Start:05-May-2018 Instruction Type:Patient Education Patient Instructions Indication:Uncontrolled type 2 diabetes mellitus Start:05-May-2018 Instruction Type:Provider Instructions for Treatment How to access health informa tion online Indication:Diabetes type 2, controlled Start:30-Dec-2017 Instruction Type:Patient Education How to access health informa tion online - Detail Indication:Diabetes type 2, controlled Start:30-Dec-2017 Instruction Type:Patient Education Patient Instructions Indication:Diabetes type 2, controlled Start:30-Dec-2017 Instruction Type:Provider Instructions for Treatment How to access health informa tion online Indication:Low back pain Start:06-Dec-2017 Instruction Type:Patient Education How to access health informa tion online - Detail Indication:Low back pain Start:06-Dec-2017 Instruction Type:Patient Education Patient Instructions Indication:Low back pain Start:06-Dec-2017 Instruction Type:Provider Instructions for Treatment How to access health informa tion online Indication:Lower abdominal pain Start:03-Dec-2017 Instruction Type:Patient Education How to access health informa tion online - Detail Indication:Lower abdominal pain Start:03-Dec-2017 Instruction Type:Patient Education Patient Instructions Indication:Lower abdominal pain Start:03-Dec-2017 Instruction Type:Provider Instructions for Treatment How to access health informa tion online Indication:Diabetes type 2, controlled Start:24-Sep-2017 Instruction Type:Patient Education How to access health informa tion online - Detail Indication:Diabetes type 2, controlled Start:24-Sep-2017 Instruction Type:Patient Education Patient Instructions Indication:Diabetes type 2, controlled Start:24-Sep-2017 Instruction Type:Provider Instructions for Treatment How to access health informa tion online Indication:Diabetes type 2, controlled Start:20-May-2017 Instruction Type:Patient Education How to access health informa tion online - Detail Indication:Diabetes type 2, controlled Start:20-May-2017 Instruction Type:Patient Education Patient Instructions Indication:Diabetes type 2, controlled Start:20-May-2017 Instruction Type:Provider Instructions for Treatment How to access health informa tion online Indication:Current smoker Start:14-Jan-2017 Instruction Type:Patient Education How to access health informa tion online - Detail Indication:Current smoker Start:14-Jan-2017 Instruction Type:Patient Education Patient Instructions Indication:Current smoker Start:14-Jan-2017 Instruction Type:Provider Instructions for Treatment How to access health informa tion online Indication:Current nonsmoker (Renamed from Current non-smoker) Start:11-Jan-2017 Instruction Type:Patient Education How to access health informa tion online - Detail Indication:Current nonsmoker (Renamed from Current non-smoker) Start:11-Jan-2017 Instruction Type:Patient Education Patient Instructions Indication:Current nonsmoker (Renamed from Current non-smoker) Start:11-Jan-2017 Instruction Type:Provider Instructions for Treatment How to access health informa tion online Indication:Hypertension Start:09-Sep-2016 Instruction Type:Patient Education How to access health informa tion online - Detail Indication:Hypertension Start:09-Sep-2016 Instruction Type:Patient Education Patient Instructions Indication:Hypertension Start:09-Sep-2016 Instruction Type:Provider Instructions for Treatment How to access health informa tion online Indication:Hypertension Start:03-Apr-2016 Instruction Type:Patient Education How to access health informa tion online - Detail Indication:Hypertension Start:03-Apr-2016 Instruction Type:Patient Education Patient Instructions Indication:Hypertension Start:03-Apr-2016 Instruction Type:Provider Instructions for Treatment How to access health informa tion online Indication:Leg wound, left Start:08-Oct-2015 Instruction Type:Patient Education How to access health informa tion online - Detail Indication:Leg wound, left Start:08-Oct-2015 Instruction Type:Patient Education Patient Instructions Indication:Leg wound, left Start:08-Oct-2015 Instruction Type:Provider Instructions for Treatment How to access health informa tion online Indication:Hypertension Start:20-Sep-2015 Instruction Type:Patient Education How to access health informa tion online - Detail Indication:Hypertension Start:20-Sep-2015 Instruction Type:Patient Education Patient Instructions Indication:Hypertension Start:20-Sep-2015 Instruction Type:Provider Instructions for Treatment Patient Instructions Indication:Hypertension Start:10-May-2015 Instruction Type:Provider Instructions for Treatment Patient Instructions Indication:Infection Start:28-Aug-2013 Instruction Type:Provider Instructions for Treatment Patient Instructions Indication:Infection Start:25-Aug-2013 Instruction Type:Provider Instructions for Treatment Patient Instructions Indication:Infection Start:24-Aug-2013 Instruction Type:Provider Instructions for Treatment Patient Instructions Indication:Infection Start:23-Aug-2013 Instruction Type:Provider Instructions for Treatment Patient Instructions Indication:Hypertension Start:30-Jun-2013 Instruction Type:Provider Instructions for Treatment Patient Instructions Indication:Arthritis Start:30-Jun-2013 Instruction Type:Provider Instructions for Treatment [facility]; [facility] Work Phone: Instructions* Name Dates Details How to Access Health Informa tion Online using Patient Portal and [employer] Indication:Current nonsmoker (Renamed from Current non-smoker) Start:21-Apr-2021 Instruction Type:Patient Education Patient Instructions Indication:Current nonsmoker (Renamed from Current non-smoker) Start:21-Apr-2021 Instruction Type:Provider Instructions for Treatment How to Access Health Informa tion Online using Patient Portal and [employer] Indication:Current nonsmoker (Renamed from Current non-smoker) Start:19-Mar-2021 Instruction Type:Patient Education Patient Instructions Indication:Current nonsmoker (Renamed from Current non-smoker) Start:19-Mar-2021 Instruction Type:Provider Instructions for Treatment How to Access Health Informa tion Online using Patient Portal and [employer] Indication:Current nonsmoker (Renamed from Current non-smoker) Start:05-Mar-2021 Instruction Type:Patient Education Patient Instructions Indication:Current nonsmoker (Renamed from Current non-smoker) Start:05-Mar-2021 Instruction Type:Provider Instructions for Treatment How to Access Health Informa tion Online using Patient Portal and [employer] Apps Indication:Current nonsmoker (Renamed from Current non-smoker) Start:20-Feb-2021 Instruction Type:Patient Education Patient Instructions Indication:Current nonsmoker (Renamed from Current non-smoker) Start:20-Feb-2021 Instruction Type:Provider Instructions for Treatment Patient Instructions Indication:Current nonsmoker (Renamed from Current non-smoker) Start:10-Feb-2021 Instruction Type:Provider Instructions for Treatment How to Access Health Informa tion Online using Patient Portal and [employer] Indication:Current nonsmoker (Renamed from Current non-smoker) Start:10-Feb-2021 Instruction Type:Patient Education How to Access Health Informa tion Online using Patient Portal and [employer] Apps Indication:Current nonsmoker (Renamed from Current non-smoker) Start:25-Dec-2020 Instruction Type:Patient Education Patient Instructions Indication:Current nonsmoker (Renamed from Current non-smoker) Start:25-Dec-2020 Instruction Type:Provider Instructions for Treatment obesity counseling Indication:Uncontrolled type 2 diabetes mellitus Start:09-Dec-2020 Instruction Type:Provider Instructions for Treatment How to Access Health Informa tion Online using Patient Portal and [employer] Indication:Current nonsmoker (Renamed from Current non-smoker) Start:09-Dec-2020 Instruction Type:Patient Education Patient Instructions Indication:Current nonsmoker (Renamed from Current non-smoker) Start:09-Dec-2020 Instruction Type:Provider Instructions for Treatment How to access health informa tion online Indication:Current nonsmoker (Renamed from Current non-smoker) Start:16-Oct-2020 Instruction Type:Patient Education How to access health informa tion online - Detail Indication:Current nonsmoker (Renamed from Current non-smoker) Start:16-Oct-2020 Instruction Type:Patient Education Patient Instructions Indication:Current nonsmoker (Renamed from Current non-smoker) Start:16-Oct-2020 Instruction Type:Provider Instructions for Treatment How to access health informa tion online Indication:BMI 38.0-38.9,adult Start:15-Dec-2018 Instruction Type:Patient Education How to access health informa tion online - Detail Indication:BMI 38.0-38.9,adult Start:15-Dec-2018 Instruction Type:Patient Education Patient Instructions Indication:BMI 38.0-38.9,adult Start:15-Dec-2018 Instruction Type:Provider Instructions for Treatment Patient Instructions Indication:Encounter for annual general medical examination with abnormal findings in adult Start:09-Sep-2018 Instruction Type:Provider Instructions for Treatment obesity counseling Indication:Uncontrolled type 2 diabetes mellitus Start:09-Sep-2018 Instruction Type:Provider Instructions for Treatment How to access health informa tion online Indication:Dysuria Start:24-Aug-2018 Instruction Type:Patient Education How to access health informa tion online - Detail Indication:Dysuria Start:24-Aug-2018 Instruction Type:Patient Education Patient Instructions Indication:Dysuria Start:24-Aug-2018 Instruction Type:Provider Instructions for Treatment How to access health informa tion online Indication:Uncontrolled type 2 diabetes mellitus Start:05-May-2018 Instruction Type:Patient Education How to access health informa tion online - Detail Indication:Uncontrolled type 2 diabetes mellitus Start:05-May-2018 Instruction Type:Patient Education Patient Instructions Indication:Uncontrolled type 2 diabetes mellitus Start:05-May-2018 Instruction Type:Provider Instructions for Treatment How to access health informa tion online Indication:Diabetes type 2, controlled Start:30-Dec-2017 Instruction Type:Patient Education How to access health informa tion online - Detail Indication:Diabetes type 2, controlled Start:30-Dec-2017 Instruction Type:Patient Education Patient Instructions Indication:Diabetes type 2, controlled Start:30-Dec-2017 Instruction Type:Provider Instructions for Treatment How to access health informa tion online Indication:Low back pain Start:06-Dec-2017 Instruction Type:Patient Education How to access health informa tion online - Detail Indication:Low back pain Start:06-Dec-2017 Instruction Type:Patient Education Patient Instructions Indication:Low back pain Start:06-Dec-2017 Instruction Type:Provider Instructions for Treatment How to access health informa tion online Indication:Lower abdominal pain Start:03-Dec-2017 Instruction Type:Patient Education How to access health informa tion online - Detail Indication:Lower abdominal pain Start:03-Dec-2017 Instruction Type:Patient Education Patient Instructions Indication:Lower abdominal pain Start:03-Dec-2017 Instruction Type:Provider Instructions for Treatment How to access health informa tion online Indication:Diabetes type 2, controlled Start:24-Sep-2017 Instruction Type:Patient Education How to access health informa tion online - Detail Indication:Diabetes type 2, controlled Start:24-Sep-2017 Instruction Type:Patient Education Patient Instructions Indication:Diabetes type 2, controlled Start:24-Sep-2017 Instruction Type:Provider Instructions for Treatment How to access health informa tion online Indication:Diabetes type 2, controlled Start:20-May-2017 Instruction Type:Patient Education How to access health informa tion online - Detail Indication:Diabetes type 2, controlled Start:20-May-2017 Instruction Type:Patient Education Patient Instructions Indication:Diabetes type 2, controlled Start:20-May-2017 Instruction Type:Provider Instructions for Treatment How to access health informa tion online Indication:Current smoker Start:14-Jan-2017 Instruction Type:Patient Education How to access health informa tion online - Detail Indication:Current smoker Start:14-Jan-2017 Instruction Type:Patient Education Patient Instructions Indication:Current smoker Start:14-Jan-2017 Instruction Type:Provider Instructions for Treatment How to access health informa tion online Indication:Current nonsmoker (Renamed from Current non-smoker) Start:11-Jan-2017 Instruction Type:Patient Education How to access health informa tion online - Detail Indication:Current nonsmoker (Renamed from Current non-smoker) Start:11-Jan-2017 Instruction Type:Patient Education Patient Instructions Indication:Current nonsmoker (Renamed from Current non-smoker) Start:11-Jan-2017 Instruction Type:Provider Instructions for Treatment How to access health informa tion online Indication:Hypertension Start:09-Sep-2016 Instruction Type:Patient Education How to access health informa tion online - Detail Indication:Hypertension Start:09-Sep-2016 Instruction Type:Patient Education Patient Instructions Indication:Hypertension Start:09-Sep-2016 Instruction Type:Provider Instructions for Treatment How to access health informa tion online Indication:Hypertension Start:03-Apr-2016 Instruction Type:Patient Education How to access health informa tion online - Detail Indication:Hypertension Start:03-Apr-2016 Instruction Type:Patient Education Patient Instructions Indication:Hypertension Start:03-Apr-2016 Instruction Type:Provider Instructions for Treatment How to access health informa tion online Indication:Leg wound, left Start:08-Oct-2015 Instruction Type:Patient Education How to access health informa tion online - Detail Indication:Leg wound, left Start:08-Oct-2015 Instruction Type:Patient Education Patient Instructions Indication:Leg wound, left Start:08-Oct-2015 Instruction Type:Provider Instructions for Treatment How to access health informa tion online Indication:Hypertension Start:20-Sep-2015 Instruction Type:Patient Education How to access health informa tion online - Detail Indication:Hypertension Start:20-Sep-2015 Instruction Type:Patient Education Patient Instructions Indication:Hypertension Start:20-Sep-2015 Instruction Type:Provider Instructions for Treatment Patient Instructions Indication:Hypertension Start:10-May-2015 Instruction Type:Provider Instructions for Treatment Patient Instructions Indication:Infection Start:28-Aug-2013 Instruction Type:Provider Instructions for Treatment Patient Instructions Indication:Infection Start:25-Aug-2013 Instruction Type:Provider Instructions for Treatment Patient Instructions Indication:Infection Start:24-Aug-2013 Instruction Type:Provider Instructions for Treatment Patient Instructions Indication:Infection Start:23-Aug-2013 Instruction Type:Provider Instructions for Treatment Patient Instructions Indication:Hypertension Start:30-Jun-2013 Instruction Type:Provider Instructions for Treatment Patient Instructions Indication:Arthritis Start:30-Jun-2013 Instruction Type:Provider Instructions for Treatment [facility]; [facility] Work Phone: Instructions* Name Dates Details Patient Instructions Indication:Current nonsmoker (Renamed from Current non-smoker) Start:17-Nov-2021 Instruction Type:Provider Instructions for Treatment How to Access Health Informa tion Online using Patient Portal and [employer] Apps Indication:Current nonsmoker (Renamed from Current non-smoker) Start:17-Nov-2021 Instruction Type:Patient Education Patient Instructions Indication:BMI 35.0-35.9,adult Start:13-Oct-2021 Instruction Type:Provider Instructions for Treatment How to Access Health Informa tion Online using Patient Portal and [employer] Apps Indication:BMI 35.0-35.9,adult Start:13-Oct-2021 Instruction Type:Patient Education Patient Instructions Indication:Current nonsmoker (Renamed from Current non-smoker) Start:29-Sep-2021 Instruction Type:Provider Instructions for Treatment How to Access Health Informa tion Online using Patient Portal and [employer] Indication:Current nonsmoker (Renamed from Current non-smoker) Start:29-Sep-2021 Instruction Type:Patient Education How to Access Health Informa tion Online using Patient Portal and [employer] Apps Indication:Current nonsmoker (Renamed from Current non-smoker) Start:21-Apr-2021 Instruction Type:Patient Education Patient Instructions Indication:Current nonsmoker (Renamed from Current non-smoker) Start:21-Apr-2021 Instruction Type:Provider Instructions for Treatment How to Access Health Informa tion Online using Patient Portal and [employer] Apps Indication:Current nonsmoker (Renamed from Current non-smoker) Start:19-Mar-2021 Instruction Type:Patient Education Patient Instructions Indication:Current nonsmoker (Renamed from Current non-smoker) Start:19-Mar-2021 Instruction Type:Provider Instructions for Treatment How to Access Health Informa tion Online using Patient Portal and [employer] Apps Indication:Current nonsmoker (Renamed from Current non-smoker) Start:05-Mar-2021 Instruction Type:Patient Education Patient Instructions Indication:Current nonsmoker (Renamed from Current non-smoker) Start:05-Mar-2021 Instruction Type:Provider Instructions for Treatment How to Access Health Informa tion Online using Patient Portal and [employer] Indication:Current nonsmoker (Renamed from Current non-smoker) Start:20-Feb-2021 Instruction Type:Patient Education Patient Instructions Indication:Current nonsmoker (Renamed from Current non-smoker) Start:20-Feb-2021 Instruction Type:Provider Instructions for Treatment Patient Instructions Indication:Current nonsmoker (Renamed from Current non-smoker) Start:10-Feb-2021 Instruction Type:Provider Instructions for Treatment How to Access Health Informa tion Online using Patient Portal and [employer] Indication:Current nonsmoker (Renamed from Current non-smoker) Start:10-Feb-2021 Instruction Type:Patient Education How to Access Health Informa tion Online using Patient Portal and [employer] Apps Indication:Current nonsmoker (Renamed from Current non-smoker) Start:25-Dec-2020 Instruction Type:Patient Education Patient Instructions Indication:Current nonsmoker (Renamed from Current non-smoker) Start:25-Dec-2020 Instruction Type:Provider Instructions for Treatment obesity counseling Indication:Uncontrolled type 2 diabetes mellitus Start:09-Dec-2020 Instruction Type:Provider Instructions for Treatment How to Access Health Informa tion Online using Patient Portal and [employer] Indication:Current nonsmoker (Renamed from Current non-smoker) Start:09-Dec-2020 Instruction Type:Patient Education Patient Instructions Indication:Current nonsmoker (Renamed from Current non-smoker) Start:09-Dec-2020 Instruction Type:Provider Instructions for Treatment How to access health informa tion online Indication:Current nonsmoker (Renamed from Current non-smoker) Start:16-Oct-2020 Instruction Type:Patient Education How to access health informa tion online - Detail Indication:Current nonsmoker (Renamed from Current non-smoker) Start:16-Oct-2020 Instruction Type:Patient Education Patient Instructions Indication:Current nonsmoker (Renamed from Current non-smoker) Start:16-Oct-2020 Instruction Type:Provider Instructions for Treatment How to access health informa tion online Indication:BMI 38.0-38.9,adult Start:15-Dec-2018 Instruction Type:Patient Education How to access health informa tion online - Detail Indication:BMI 38.0-38.9,adult Start:15-Dec-2018 Instruction Type:Patient Education Patient Instructions Indication:BMI 38.0-38.9,adult Start:15-Dec-2018 Instruction Type:Provider Instructions for Treatment Patient Instructions Indication:Encounter for annual general medical examination with abnormal findings in adult Start:09-Sep-2018 Instruction Type:Provider Instructions for Treatment obesity counseling Indication:Uncontrolled type 2 diabetes mellitus Start:09-Sep-2018 Instruction Type:Provider Instructions for Treatment How to access health informa tion online Indication:Dysuria Start:24-Aug-2018 Instruction Type:Patient Education How to access health informa tion online - Detail Indication:Dysuria Start:24-Aug-2018 Instruction Type:Patient Education Patient Instructions Indication:Dysuria Start:24-Aug-2018 Instruction Type:Provider Instructions for Treatment How to access health informa tion online Indication:Uncontrolled type 2 diabetes mellitus Start:05-May-2018 Instruction Type:Patient Education How to access health informa tion online - Detail Indication:Uncontrolled type 2 diabetes mellitus Start:05-May-2018 Instruction Type:Patient Education Patient Instructions Indication:Uncontrolled type 2 diabetes mellitus Start:05-May-2018 Instruction Type:Provider Instructions for Treatment How to access health informa tion online Indication:Diabetes type 2, controlled Start:30-Dec-2017 Instruction Type:Patient Education How to access health informa tion online - Detail Indication:Diabetes type 2, controlled Start:30-Dec-2017 Instruction Type:Patient Education Patient Instructions Indication:Diabetes type 2, controlled Start:30-Dec-2017 Instruction Type:Provider Instructions for Treatment How to access health informa tion online Indication:Low back pain Start:06-Dec-2017 Instruction Type:Patient Education How to access health informa tion online - Detail Indication:Low back pain Start:06-Dec-2017 Instruction Type:Patient Education Patient Instructions Indication:Low back pain Start:06-Dec-2017 Instruction Type:Provider Instructions for Treatment How to access health informa tion online Indication:Lower abdominal pain Start:03-Dec-2017 Instruction Type:Patient Education How to access health informa tion online - Detail Indication:Lower abdominal pain Start:03-Dec-2017 Instruction Type:Patient Education Patient Instructions Indication:Lower abdominal pain Start:03-Dec-2017 Instruction Type:Provider Instructions for Treatment How to access health informa tion online Indication:Diabetes type 2, controlled Start:24-Sep-2017 Instruction Type:Patient Education How to access health informa tion online - Detail Indication:Diabetes type 2, controlled Start:24-Sep-2017 Instruction Type:Patient Education Patient Instructions Indication:Diabetes type 2, controlled Start:24-Sep-2017 Instruction Type:Provider Instructions for Treatment How to access health informa tion online Indication:Diabetes type 2, controlled Start:20-May-2017 Instruction Type:Patient Education How to access health informa tion online - Detail Indication:Diabetes type 2, controlled Start:20-May-2017 Instruction Type:Patient Education Patient Instructions Indication:Diabetes type 2, controlled Start:20-May-2017 Instruction Type:Provider Instructions for Treatment How to access health informa tion online Indication:Current smoker Start:14-Jan-2017 Instruction Type:Patient Education How to access health informa tion online - Detail Indication:Current smoker Start:14-Jan-2017 Instruction Type:Patient Education Patient Instructions Indication:Current smoker Start:14-Jan-2017 Instruction Type:Provider Instructions for Treatment How to access health informa tion online Indication:Current nonsmoker (Renamed from Current non-smoker) Start:11-Jan-2017 Instruction Type:Patient Education How to access health informa tion online - Detail Indication:Current nonsmoker (Renamed from Current non-smoker) Start:11-Jan-2017 Instruction Type:Patient Education Patient Instructions Indication:Current nonsmoker (Renamed from Current non-smoker) Start:11-Jan-2017 Instruction Type:Provider Instructions for Treatment How to access health informa tion online Indication:Hypertension Start:09-Sep-2016 Instruction Type:Patient Education How to access health informa tion online - Detail Indication:Hypertension Start:09-Sep-2016 Instruction Type:Patient Education Patient Instructions Indication:Hypertension Start:09-Sep-2016 Instruction Type:Provider Instructions for Treatment How to access health informa tion online Indication:Hypertension Start:03-Apr-2016 Instruction Type:Patient Education How to access health informa tion online - Detail Indication:Hypertension Start:03-Apr-2016 Instruction Type:Patient Education Patient Instructions Indication:Hypertension Start:03-Apr-2016 Instruction Type:Provider Instructions for Treatment How to access health informa tion online Indication:Leg wound, left Start:08-Oct-2015 Instruction Type:Patient Education How to access health informa tion online - Detail Indication:Leg wound, left Start:08-Oct-2015 Instruction Type:Patient Education Patient Instructions Indication:Leg wound, left Start:08-Oct-2015 Instruction Type:Provider Instructions for Treatment How to access health informa tion online Indication:Hypertension Start:20-Sep-2015 Instruction Type:Patient Education How to access health informa tion online - Detail Indication:Hypertension Start:20-Sep-2015 Instruction Type:Patient Education Patient Instructions Indication:Hypertension Start:20-Sep-2015 Instruction Type:Provider Instructions for Treatment Patient Instructions Indication:Hypertension Start:10-May-2015 Instruction Type:Provider Instructions for Treatment Patient Instructions Indication:Infection Start:28-Aug-2013 Instruction Type:Provider Instructions for Treatment Patient Instructions Indication:Infection Start:25-Aug-2013 Instruction Type:Provider Instructions for Treatment Patient Instructions Indication:Infection Start:24-Aug-2013 Instruction Type:Provider Instructions for Treatment Patient Instructions Indication:Infection Start:23-Aug-2013 Instruction Type:Provider Instructions for Treatment Patient Instructions Indication:Hypertension Start:30-Jun-2013 Instruction Type:Provider Instructions for Treatment Patient Instructions Indication:Arthritis Start:30-Jun-2013 Instruction Type:Provider Instructions for Treatment [facility]; [facility] Work Phone: Instructions* Name Dates Details Patient Instructions Indication:BMI 35.0-35.9,adult Start:03-Dec-2021 Instruction Type:Provider Instructions for Treatment How to Access Health Informa tion Online using Patient Portal and [employer] Indication:BMI 35.0-35.9,adult Start:03-Dec-2021 Instruction Type:Patient Education Patient Instructions Indication:Current nonsmoker (Renamed from Current non-smoker) Start:17-Nov-2021 Instruction Type:Provider Instructions for Treatment How to Access Health Informa tion Online using Patient Portal and [employer] Apps Indication:Current nonsmoker (Renamed from Current non-smoker) Start:17-Nov-2021 Instruction Type:Patient Education Patient Instructions Indication:BMI 35.0-35.9,adult Start:13-Oct-2021 Instruction Type:Provider Instructions for Treatment How to Access Health Informa tion Online using Patient Portal and [employer] Apps Indication:BMI 35.0-35.9,adult Start:13-Oct-2021 Instruction Type:Patient Education Patient Instructions Indication:Current nonsmoker (Renamed from Current non-smoker) Start:29-Sep-2021 Instruction Type:Provider Instructions for Treatment How to Access Health Informa tion Online using Patient Portal and [employer] Apps Indication:Current nonsmoker (Renamed from Current non-smoker) Start:29-Sep-2021 Instruction Type:Patient Education How to Access Health Informa tion Online using Patient Portal and [employer] Apps Indication:Current nonsmoker (Renamed from Current non-smoker) Start:21-Apr-2021 Instruction Type:Patient Education Patient Instructions Indication:Current nonsmoker (Renamed from Current non-smoker) Start:21-Apr-2021 Instruction Type:Provider Instructions for Treatment How to Access Health Informa tion Online using Patient Portal and [employer] Indication:Current nonsmoker (Renamed from Current non-smoker) Start:19-Mar-2021 Instruction Type:Patient Education Patient Instructions Indication:Current nonsmoker (Renamed from Current non-smoker) Start:19-Mar-2021 Instruction Type:Provider Instructions for Treatment How to Access Health Informa tion Online using Patient Portal and [employer] Apps Indication:Current nonsmoker (Renamed from Current non-smoker) Start:05-Mar-2021 Instruction Type:Patient Education Patient Instructions Indication:Current nonsmoker (Renamed from Current non-smoker) Start:05-Mar-2021 Instruction Type:Provider Instructions for Treatment How to Access Health Informa tion Online using Patient Portal and [employer] Indication:Current nonsmoker (Renamed from Current non-smoker) Start:20-Feb-2021 Instruction Type:Patient Education Patient Instructions Indication:Current nonsmoker (Renamed from Current non-smoker) Start:20-Feb-2021 Instruction Type:Provider Instructions for Treatment Patient Instructions Indication:Current nonsmoker (Renamed from Current non-smoker) Start:10-Feb-2021 Instruction Type:Provider Instructions for Treatment How to Access Health Informa tion Online using Patient Portal and [employer] Indication:Current nonsmoker (Renamed from Current non-smoker) Start:10-Feb-2021 Instruction Type:Patient Education How to Access Health Informa tion Online using Patient Portal and [employer] Apps Indication:Current nonsmoker (Renamed from Current non-smoker) Start:25-Dec-2020 Instruction Type:Patient Education Patient Instructions Indication:Current nonsmoker (Renamed from Current non-smoker) Start:25-Dec-2020 Instruction Type:Provider Instructions for Treatment obesity counseling Indication:Uncontrolled type 2 diabetes mellitus Start:09-Dec-2020 Instruction Type:Provider Instructions for Treatment How to Access Health Informa tion Online using Patient Portal and [employer] Indication:Current nonsmoker (Renamed from Current non-smoker) Start:09-Dec-2020 Instruction Type:Patient Education Patient Instructions Indication:Current nonsmoker (Renamed from Current non-smoker) Start:09-Dec-2020 Instruction Type:Provider Instructions for Treatment How to access health informa tion online Indication:Current nonsmoker (Renamed from Current non-smoker) Start:16-Oct-2020 Instruction Type:Patient Education How to access health informa tion online - Detail Indication:Current nonsmoker (Renamed from Current non-smoker) Start:16-Oct-2020 Instruction Type:Patient Education Patient Instructions Indication:Current nonsmoker (Renamed from Current non-smoker) Start:16-Oct-2020 Instruction Type:Provider Instructions for Treatment How to access health informa tion online Indication:BMI 38.0-38.9,adult Start:15-Dec-2018 Instruction Type:Patient Education How to access health informa tion online - Detail Indication:BMI 38.0-38.9,adult Start:15-Dec-2018 Instruction Type:Patient Education Patient Instructions Indication:BMI 38.0-38.9,adult Start:15-Dec-2018 Instruction Type:Provider Instructions for Treatment Patient Instructions Indication:Encounter for annual general medical examination with abnormal findings in adult Start:09-Sep-2018 Instruction Type:Provider Instructions for Treatment obesity counseling Indication:Uncontrolled type 2 diabetes mellitus Start:09-Sep-2018 Instruction Type:Provider Instructions for Treatment How to access health informa tion online Indication:Dysuria Start:24-Aug-2018 Instruction Type:Patient Education How to access health informa tion online - Detail Indication:Dysuria Start:24-Aug-2018 Instruction Type:Patient Education Patient Instructions Indication:Dysuria Start:24-Aug-2018 Instruction Type:Provider Instructions for Treatment How to access health informa tion online Indication:Uncontrolled type 2 diabetes mellitus Start:05-May-2018 Instruction Type:Patient Education How to access health informa tion online - Detail Indication:Uncontrolled type 2 diabetes mellitus Start:05-May-2018 Instruction Type:Patient Education Patient Instructions Indication:Uncontrolled type 2 diabetes mellitus Start:05-May-2018 Instruction Type:Provider Instructions for Treatment How to access health informa tion online Indication:Diabetes type 2, controlled Start:30-Dec-2017 Instruction Type:Patient Education How to access health informa tion online - Detail Indication:Diabetes type 2, controlled Start:30-Dec-2017 Instruction Type:Patient Education Patient Instructions Indication:Diabetes type 2, controlled Start:30-Dec-2017 Instruction Type:Provider Instructions for Treatment How to access health informa tion online Indication:Low back pain Start:06-Dec-2017 Instruction Type:Patient Education How to access health informa tion online - Detail Indication:Low back pain Start:06-Dec-2017 Instruction Type:Patient Education Patient Instructions Indication:Low back pain Start:06-Dec-2017 Instruction Type:Provider Instructions for Treatment How to access health informa tion online Indication:Lower abdominal pain Start:03-Dec-2017 Instruction Type:Patient Education How to access health informa tion online - Detail Indication:Lower abdominal pain Start:03-Dec-2017 Instruction Type:Patient Education Patient Instructions Indication:Lower abdominal pain Start:03-Dec-2017 Instruction Type:Provider Instructions for Treatment How to access health informa tion online Indication:Diabetes type 2, controlled Start:24-Sep-2017 Instruction Type:Patient Education How to access health informa tion online - Detail Indication:Diabetes type 2, controlled Start:24-Sep-2017 Instruction Type:Patient Education Patient Instructions Indication:Diabetes type 2, controlled Start:24-Sep-2017 Instruction Type:Provider Instructions for Treatment How to access health informa tion online Indication:Diabetes type 2, controlled Start:20-May-2017 Instruction Type:Patient Education How to access health informa tion online - Detail Indication:Diabetes type 2, controlled Start:20-May-2017 Instruction Type:Patient Education Patient Instructions Indication:Diabetes type 2, controlled Start:20-May-2017 Instruction Type:Provider Instructions for Treatment How to access health informa tion online Indication:Current smoker Start:14-Jan-2017 Instruction Type:Patient Education How to access health informa tion online - Detail Indication:Current smoker Start:14-Jan-2017 Instruction Type:Patient Education Patient Instructions Indication:Current smoker Start:14-Jan-2017 Instruction Type:Provider Instructions for Treatment How to access health informa tion online Indication:Current nonsmoker (Renamed from Current non-smoker) Start:11-Jan-2017 Instruction Type:Patient Education How to access health informa tion online - Detail Indication:Current nonsmoker (Renamed from Current non-smoker) Start:11-Jan-2017 Instruction Type:Patient Education Patient Instructions Indication:Current nonsmoker (Renamed from Current non-smoker) Start:11-Jan-2017 Instruction Type:Provider Instructions for Treatment How to access health informa tion online Indication:Hypertension Start:09-Sep-2016 Instruction Type:Patient Education How to access health informa tion online - Detail Indication:Hypertension Start:09-Sep-2016 Instruction Type:Patient Education Patient Instructions Indication:Hypertension Start:09-Sep-2016 Instruction Type:Provider Instructions for Treatment How to access health informa tion online Indication:Hypertension Start:03-Apr-2016 Instruction Type:Patient Education How to access health informa tion online - Detail Indication:Hypertension Start:03-Apr-2016 Instruction Type:Patient Education Patient Instructions Indication:Hypertension Start:03-Apr-2016 Instruction Type:Provider Instructions for Treatment How to access health informa tion online Indication:Leg wound, left Start:08-Oct-2015 Instruction Type:Patient Education How to access health informa tion online - Detail Indication:Leg wound, left Start:08-Oct-2015 Instruction Type:Patient Education Patient Instructions Indication:Leg wound, left Start:08-Oct-2015 Instruction Type:Provider Instructions for Treatment How to access health informa tion online Indication:Hypertension Start:20-Sep-2015 Instruction Type:Patient Education How to access health informa tion online - Detail Indication:Hypertension Start:20-Sep-2015 Instruction Type:Patient Education Patient Instructions Indication:Hypertension Start:20-Sep-2015 Instruction Type:Provider Instructions for Treatment Patient Instructions Indication:Hypertension Start:10-May-2015 Instruction Type:Provider Instructions for Treatment Patient Instructions Indication:Infection Start:28-Aug-2013 Instruction Type:Provider Instructions for Treatment Patient Instructions Indication:Infection Start:25-Aug-2013 Instruction Type:Provider Instructions for Treatment Patient Instructions Indication:Infection Start:24-Aug-2013 Instruction Type:Provider Instructions for Treatment Patient Instructions Indication:Infection Start:23-Aug-2013 Instruction Type:Provider Instructions for Treatment Patient Instructions Indication:Hypertension Start:30-Jun-2013 Instruction Type:Provider Instructions for Treatment Patient Instructions Indication:Arthritis Start:30-Jun-2013 Instruction Type:Provider Instructions for Treatment [facility]; [facility] Work Phone: Instructions* Name Dates Details Patient Instructions Indication:BMI 35.0-35.9,adult Start:03-Dec-2021 Instruction Type:Provider Instructions for Treatment How to Access Health Informa tion Online using Patient Portal and [employer] Apps Indication:BMI 35.0-35.9,adult Start:03-Dec-2021 Instruction Type:Patient Education Patient Instructions Indication:Current nonsmoker (Renamed from Current non-smoker) Start:17-Nov-2021 Instruction Type:Provider Instructions for Treatment How to Access Health Informa tion Online using Patient Portal and [employer] Apps Indication:Current nonsmoker (Renamed from Current non-smoker) Start:17-Nov-2021 Instruction Type:Patient Education Patient Instructions Indication:BMI 35.0-35.9,adult Start:13-Oct-2021 Instruction Type:Provider Instructions for Treatment How to Access Health Informa tion Online using Patient Portal and [employer] Indication:BMI 35.0-35.9,adult Start:13-Oct-2021 Instruction Type:Patient Education Patient Instructions Indication:Current nonsmoker (Renamed from Current non-smoker) Start:29-Sep-2021 Instruction Type:Provider Instructions for Treatment How to Access Health Informa tion Online using Patient Portal and [employer] Apps Indication:Current nonsmoker (Renamed from Current non-smoker) Start:29-Sep-2021 Instruction Type:Patient Education How to Access Health Informa tion Online using Patient Portal and [employer] Apps Indication:Current nonsmoker (Renamed from Current non-smoker) Start:21-Apr-2021 Instruction Type:Patient Education Patient Instructions Indication:Current nonsmoker (Renamed from Current non-smoker) Start:21-Apr-2021 Instruction Type:Provider Instructions for Treatment How to Access Health Informa tion Online using Patient Portal and [employer] Apps Indication:Current nonsmoker (Renamed from Current non-smoker) Start:19-Mar-2021 Instruction Type:Patient Education Patient Instructions Indication:Current nonsmoker (Renamed from Current non-smoker) Start:19-Mar-2021 Instruction Type:Provider Instructions for Treatment How to Access Health Informa tion Online using Patient Portal and [employer] Apps Indication:Current nonsmoker (Renamed from Current non-smoker) Start:05-Mar-2021 Instruction Type:Patient Education Patient Instructions Indication:Current nonsmoker (Renamed from Current non-smoker) Start:05-Mar-2021 Instruction Type:Provider Instructions for Treatment How to Access Health Informa tion Online using Patient Portal and [employer] Indication:Current nonsmoker (Renamed from Current non-smoker) Start:20-Feb-2021 Instruction Type:Patient Education Patient Instructions Indication:Current nonsmoker (Renamed from Current non-smoker) Start:20-Feb-2021 Instruction Type:Provider Instructions for Treatment Patient Instructions Indication:Current nonsmoker (Renamed from Current non-smoker) Start:10-Feb-2021 Instruction Type:Provider Instructions for Treatment How to Access Health Informa tion Online using Patient Portal and [employer] Indication:Current nonsmoker (Renamed from Current non-smoker) Start:10-Feb-2021 Instruction Type:Patient Education How to Access Health Informa tion Online using Patient Portal and [employer] Apps Indication:Current nonsmoker (Renamed from Current non-smoker) Start:25-Dec-2020 Instruction Type:Patient Education Patient Instructions Indication:Current nonsmoker (Renamed from Current non-smoker) Start:25-Dec-2020 Instruction Type:Provider Instructions for Treatment obesity counseling Indication:Uncontrolled type 2 diabetes mellitus Start:09-Dec-2020 Instruction Type:Provider Instructions for Treatment How to Access Health Informa tion Online using Patient Portal and [employer] Apps Indication:Current nonsmoker (Renamed from Current non-smoker) Start:09-Dec-2020 Instruction Type:Patient Education Patient Instructions Indication:Current nonsmoker (Renamed from Current non-smoker) Start:09-Dec-2020 Instruction Type:Provider Instructions for Treatment How to access health informa tion online Indication:Current nonsmoker (Renamed from Current non-smoker) Start:16-Oct-2020 Instruction Type:Patient Education How to access health informa tion online - Detail Indication:Current nonsmoker (Renamed from Current non-smoker) Start:16-Oct-2020 Instruction Type:Patient Education Patient Instructions Indication:Current nonsmoker (Renamed from Current non-smoker) Start:16-Oct-2020 Instruction Type:Provider Instructions for Treatment How to access health informa tion online Indication:BMI 38.0-38.9,adult Start:15-Dec-2018 Instruction Type:Patient Education How to access health informa tion online - Detail Indication:BMI 38.0-38.9,adult Start:15-Dec-2018 Instruction Type:Patient Education Patient Instructions Indication:BMI 38.0-38.9,adult Start:15-Dec-2018 Instruction Type:Provider Instructions for Treatment Patient Instructions Indication:Encounter for annual general medical examination with abnormal findings in adult Start:09-Sep-2018 Instruction Type:Provider Instructions for Treatment obesity counseling Indication:Uncontrolled type 2 diabetes mellitus Start:09-Sep-2018 Instruction Type:Provider Instructions for Treatment How to access health informa tion online Indication:Dysuria Start:24-Aug-2018 Instruction Type:Patient Education How to access health informa tion online - Detail Indication:Dysuria Start:24-Aug-2018 Instruction Type:Patient Education Patient Instructions Indication:Dysuria Start:24-Aug-2018 Instruction Type:Provider Instructions for Treatment How to access health informa tion online Indication:Uncontrolled type 2 diabetes mellitus Start:05-May-2018 Instruction Type:Patient Education How to access health informa tion online - Detail Indication:Uncontrolled type 2 diabetes mellitus Start:05-May-2018 Instruction Type:Patient Education Patient Instructions Indication:Uncontrolled type 2 diabetes mellitus Start:05-May-2018 Instruction Type:Provider Instructions for Treatment How to access health informa tion online Indication:Diabetes type 2, controlled Start:30-Dec-2017 Instruction Type:Patient Education How to access health informa tion online - Detail Indication:Diabetes type 2, controlled Start:30-Dec-2017 Instruction Type:Patient Education Patient Instructions Indication:Diabetes type 2, controlled Start:30-Dec-2017 Instruction Type:Provider Instructions for Treatment How to access health informa tion online Indication:Low back pain Start:06-Dec-2017 Instruction Type:Patient Education How to access health informa tion online - Detail Indication:Low back pain Start:06-Dec-2017 Instruction Type:Patient Education Patient Instructions Indication:Low back pain Start:06-Dec-2017 Instruction Type:Provider Instructions for Treatment How to access health informa tion online Indication:Lower abdominal pain Start:03-Dec-2017 Instruction Type:Patient Education How to access health informa tion online - Detail Indication:Lower abdominal pain Start:03-Dec-2017 Instruction Type:Patient Education Patient Instructions Indication:Lower abdominal pain Start:03-Dec-2017 Instruction Type:Provider Instructions for Treatment How to access health informa tion online Indication:Diabetes type 2, controlled Start:24-Sep-2017 Instruction Type:Patient Education How to access health informa tion online - Detail Indication:Diabetes type 2, controlled Start:24-Sep-2017 Instruction Type:Patient Education Patient Instructions Indication:Diabetes type 2, controlled Start:24-Sep-2017 Instruction Type:Provider Instructions for Treatment How to access health informa tion online Indication:Diabetes type 2, controlled Start:20-May-2017 Instruction Type:Patient Education How to access health informa tion online - Detail Indication:Diabetes type 2, controlled Start:20-May-2017 Instruction Type:Patient Education Patient Instructions Indication:Diabetes type 2, controlled Start:20-May-2017 Instruction Type:Provider Instructions for Treatment How to access health informa tion online Indication:Current smoker Start:14-Jan-2017 Instruction Type:Patient Education How to access health informa tion online - Detail Indication:Current smoker Start:14-Jan-2017 Instruction Type:Patient Education Patient Instructions Indication:Current smoker Start:14-Jan-2017 Instruction Type:Provider Instructions for Treatment How to access health informa tion online Indication:Current nonsmoker (Renamed from Current non-smoker) Start:11-Jan-2017 Instruction Type:Patient Education How to access health informa tion online - Detail Indication:Current nonsmoker (Renamed from Current non-smoker) Start:11-Jan-2017 Instruction Type:Patient Education Patient Instructions Indication:Current nonsmoker (Renamed from Current non-smoker) Start:11-Jan-2017 Instruction Type:Provider Instructions for Treatment How to access health informa tion online Indication:Hypertension Start:09-Sep-2016 Instruction Type:Patient Education How to access health informa tion online - Detail Indication:Hypertension Start:09-Sep-2016 Instruction Type:Patient Education Patient Instructions Indication:Hypertension Start:09-Sep-2016 Instruction Type:Provider Instructions for Treatment How to access health informa tion online Indication:Hypertension Start:03-Apr-2016 Instruction Type:Patient Education How to access health informa tion online - Detail Indication:Hypertension Start:03-Apr-2016 Instruction Type:Patient Education Patient Instructions Indication:Hypertension Start:03-Apr-2016 Instruction Type:Provider Instructions for Treatment How to access health informa tion online Indication:Leg wound, left Start:08-Oct-2015 Instruction Type:Patient Education How to access health informa tion online - Detail Indication:Leg wound, left Start:08-Oct-2015 Instruction Type:Patient Education Patient Instructions Indication:Leg wound, left Start:08-Oct-2015 Instruction Type:Provider Instructions for Treatment How to access health informa tion online Indication:Hypertension Start:20-Sep-2015 Instruction Type:Patient Education How to access health informa tion online - Detail Indication:Hypertension Start:20-Sep-2015 Instruction Type:Patient Education Patient Instructions Indication:Hypertension Start:20-Sep-2015 Instruction Type:Provider Instructions for Treatment Patient Instructions Indication:Hypertension Start:10-May-2015 Instruction Type:Provider Instructions for Treatment Patient Instructions Indication:Infection Start:28-Aug-2013 Instruction Type:Provider Instructions for Treatment Patient Instructions Indication:Infection Start:25-Aug-2013 Instruction Type:Provider Instructions for Treatment Patient Instructions Indication:Infection Start:24-Aug-2013 Instruction Type:Provider Instructions for Treatment Patient Instructions Indication:Infection Start:23-Aug-2013 Instruction Type:Provider Instructions for Treatment Patient Instructions Indication:Hypertension Start:30-Jun-2013 Instruction Type:Provider Instructions for Treatment Patient Instructions Indication:Arthritis Start:30-Jun-2013 Instruction Type:Provider Instructions for Treatment [facility]; [facility] Work Phone: Instructions* Name Dates Details Patient Instructions Indication:BMI 35.0-35.9,adult Start:03-Dec-2021 Instruction Type:Provider Instructions for Treatment How to Access Health Informa tion Online using Patient Portal and [employer] Indication:BMI 35.0-35.9,adult Start:03-Dec-2021 Instruction Type:Patient Education Patient Instructions Indication:Current nonsmoker (Renamed from Current non-smoker) Start:17-Nov-2021 Instruction Type:Provider Instructions for Treatment How to Access Health Informa tion Online using Patient Portal and [employer] Apps Indication:Current nonsmoker (Renamed from Current non-smoker) Start:17-Nov-2021 Instruction Type:Patient Education Patient Instructions Indication:BMI 35.0-35.9,adult Start:13-Oct-2021 Instruction Type:Provider Instructions for Treatment How to Access Health Informa tion Online using Patient Portal and [employer] Indication:BMI 35.0-35.9,adult Start:13-Oct-2021 Instruction Type:Patient Education Patient Instructions Indication:Current nonsmoker (Renamed from Current non-smoker) Start:29-Sep-2021 Instruction Type:Provider Instructions for Treatment How to Access Health Informa tion Online using Patient Portal and [employer] Indication:Current nonsmoker (Renamed from Current non-smoker) Start:29-Sep-2021 Instruction Type:Patient Education How to Access Health Informa tion Online using Patient Portal and [employer] Indication:Current nonsmoker (Renamed from Current non-smoker) Start:21-Apr-2021 Instruction Type:Patient Education Patient Instructions Indication:Current nonsmoker (Renamed from Current non-smoker) Start:21-Apr-2021 Instruction Type:Provider Instructions for Treatment How to Access Health Informa tion Online using Patient Portal and [employer] Indication:Current nonsmoker (Renamed from Current non-smoker) Start:19-Mar-2021 Instruction Type:Patient Education Patient Instructions Indication:Current nonsmoker (Renamed from Current non-smoker) Start:19-Mar-2021 Instruction Type:Provider Instructions for Treatment How to Access Health Informa tion Online using Patient Portal and [employer] Indication:Current nonsmoker (Renamed from Current non-smoker) Start:05-Mar-2021 Instruction Type:Patient Education Patient Instructions Indication:Current nonsmoker (Renamed from Current non-smoker) Start:05-Mar-2021 Instruction Type:Provider Instructions for Treatment How to Access Health Informa tion Online using Patient Portal and [employer] Indication:Current nonsmoker (Renamed from Current non-smoker) Start:20-Feb-2021 Instruction Type:Patient Education Patient Instructions Indication:Current nonsmoker (Renamed from Current non-smoker) Start:20-Feb-2021 Instruction Type:Provider Instructions for Treatment Patient Instructions Indication:Current nonsmoker (Renamed from Current non-smoker) Start:10-Feb-2021 Instruction Type:Provider Instructions for Treatment How to Access Health Informa tion Online using Patient Portal and [employer] Indication:Current nonsmoker (Renamed from Current non-smoker) Start:10-Feb-2021 Instruction Type:Patient Education How to Access Health Informa tion Online using Patient Portal and [employer] Apps Indication:Current nonsmoker (Renamed from Current non-smoker) Start:25-Dec-2020 Instruction Type:Patient Education Patient Instructions Indication:Current nonsmoker (Renamed from Current non-smoker) Start:25-Dec-2020 Instruction Type:Provider Instructions for Treatment obesity counseling Indication:Uncontrolled type 2 diabetes mellitus Start:09-Dec-2020 Instruction Type:Provider Instructions for Treatment How to Access Health Informa tion Online using Patient Portal and [employer] Indication:Current nonsmoker (Renamed from Current non-smoker) Start:09-Dec-2020 Instruction Type:Patient Education Patient Instructions Indication:Current nonsmoker (Renamed from Current non-smoker) Start:09-Dec-2020 Instruction Type:Provider Instructions for Treatment How to access health informa tion online Indication:Current nonsmoker (Renamed from Current non-smoker) Start:16-Oct-2020 Instruction Type:Patient Education How to access health informa tion online - Detail Indication:Current nonsmoker (Renamed from Current non-smoker) Start:16-Oct-2020 Instruction Type:Patient Education Patient Instructions Indication:Current nonsmoker (Renamed from Current non-smoker) Start:16-Oct-2020 Instruction Type:Provider Instructions for Treatment How to access health informa tion online Indication:BMI 38.0-38.9,adult Start:15-Dec-2018 Instruction Type:Patient Education How to access health informa tion online - Detail Indication:BMI 38.0-38.9,adult Start:15-Dec-2018 Instruction Type:Patient Education Patient Instructions Indication:BMI 38.0-38.9,adult Start:15-Dec-2018 Instruction Type:Provider Instructions for Treatment Patient Instructions Indication:Encounter for annual general medical examination with abnormal findings in adult Start:09-Sep-2018 Instruction Type:Provider Instructions for Treatment obesity counseling Indication:Uncontrolled type 2 diabetes mellitus Start:09-Sep-2018 Instruction Type:Provider Instructions for Treatment How to access health informa tion online Indication:Dysuria Start:24-Aug-2018 Instruction Type:Patient Education How to access health informa tion online - Detail Indication:Dysuria Start:24-Aug-2018 Instruction Type:Patient Education Patient Instructions Indication:Dysuria Start:24-Aug-2018 Instruction Type:Provider Instructions for Treatment How to access health informa tion online Indication:Uncontrolled type 2 diabetes mellitus Start:05-May-2018 Instruction Type:Patient Education How to access health informa tion online - Detail Indication:Uncontrolled type 2 diabetes mellitus Start:05-May-2018 Instruction Type:Patient Education Patient Instructions Indication:Uncontrolled type 2 diabetes mellitus Start:05-May-2018 Instruction Type:Provider Instructions for Treatment How to access health informa tion online Indication:Diabetes type 2, controlled Start:30-Dec-2017 Instruction Type:Patient Education How to access health informa tion online - Detail Indication:Diabetes type 2, controlled Start:30-Dec-2017 Instruction Type:Patient Education Patient Instructions Indication:Diabetes type 2, controlled Start:30-Dec-2017 Instruction Type:Provider Instructions for Treatment How to access health informa tion online Indication:Low back pain Start:06-Dec-2017 Instruction Type:Patient Education How to access health informa tion online - Detail Indication:Low back pain Start:06-Dec-2017 Instruction Type:Patient Education Patient Instructions Indication:Low back pain Start:06-Dec-2017 Instruction Type:Provider Instructions for Treatment How to access health informa tion online Indication:Lower abdominal pain Start:03-Dec-2017 Instruction Type:Patient Education How to access health informa tion online - Detail Indication:Lower abdominal pain Start:03-Dec-2017 Instruction Type:Patient Education Patient Instructions Indication:Lower abdominal pain Start:03-Dec-2017 Instruction Type:Provider Instructions for Treatment How to access health informa tion online Indication:Diabetes type 2, controlled Start:24-Sep-2017 Instruction Type:Patient Education How to access health informa tion online - Detail Indication:Diabetes type 2, controlled Start:24-Sep-2017 Instruction Type:Patient Education Patient Instructions Indication:Diabetes type 2, controlled Start:24-Sep-2017 Instruction Type:Provider Instructions for Treatment How to access health informa tion online Indication:Diabetes type 2, controlled Start:20-May-2017 Instruction Type:Patient Education How to access health informa tion online - Detail Indication:Diabetes type 2, controlled Start:20-May-2017 Instruction Type:Patient Education Patient Instructions Indication:Diabetes type 2, controlled Start:20-May-2017 Instruction Type:Provider Instructions for Treatment How to access health informa tion online Indication:Current smoker Start:14-Jan-2017 Instruction Type:Patient Education How to access health informa tion online - Detail Indication:Current smoker Start:14-Jan-2017 Instruction Type:Patient Education Patient Instructions Indication:Current smoker Start:14-Jan-2017 Instruction Type:Provider Instructions for Treatment How to access health informa tion online Indication:Current nonsmoker (Renamed from Current non-smoker) Start:11-Jan-2017 Instruction Type:Patient Education How to access health informa tion online - Detail Indication:Current nonsmoker (Renamed from Current non-smoker) Start:11-Jan-2017 Instruction Type:Patient Education Patient Instructions Indication:Current nonsmoker (Renamed from Current non-smoker) Start:11-Jan-2017 Instruction Type:Provider Instructions for Treatment How to access health informa tion online Indication:Hypertension Start:09-Sep-2016 Instruction Type:Patient Education How to access health informa tion online - Detail Indication:Hypertension Start:09-Sep-2016 Instruction Type:Patient Education Patient Instructions Indication:Hypertension Start:09-Sep-2016 Instruction Type:Provider Instructions for Treatment How to access health informa tion online Indication:Hypertension Start:03-Apr-2016 Instruction Type:Patient Education How to access health informa tion online - Detail Indication:Hypertension Start:03-Apr-2016 Instruction Type:Patient Education Patient Instructions Indication:Hypertension Start:03-Apr-2016 Instruction Type:Provider Instructions for Treatment How to access health informa tion online Indication:Leg wound, left Start:08-Oct-2015 Instruction Type:Patient Education How to access health informa tion online - Detail Indication:Leg wound, left Start:08-Oct-2015 Instruction Type:Patient Education Patient Instructions Indication:Leg wound, left Start:08-Oct-2015 Instruction Type:Provider Instructions for Treatment How to access health informa tion online Indication:Hypertension Start:20-Sep-2015 Instruction Type:Patient Education How to access health informa tion online - Detail Indication:Hypertension Start:20-Sep-2015 Instruction Type:Patient Education Patient Instructions Indication:Hypertension Start:20-Sep-2015 Instruction Type:Provider Instructions for Treatment Patient Instructions Indication:Hypertension Start:10-May-2015 Instruction Type:Provider Instructions for Treatment Patient Instructions Indication:Infection Start:28-Aug-2013 Instruction Type:Provider Instructions for Treatment Patient Instructions Indication:Infection Start:25-Aug-2013 Instruction Type:Provider Instructions for Treatment Patient Instructions Indication:Infection Start:24-Aug-2013 Instruction Type:Provider Instructions for Treatment Patient Instructions Indication:Infection Start:23-Aug-2013 Instruction Type:Provider Instructions for Treatment Patient Instructions Indication:Hypertension Start:30-Jun-2013 Instruction Type:Provider Instructions for Treatment Patient Instructions Indication:Arthritis Start:30-Jun-2013 Instruction Type:Provider Instructions for Treatment [facility]; [facility] Work Phone: Instructions* Name Dates Details Patient Instructions Indication:BMI 35.0-35.9,adult Start:03-Dec-2021 Instruction Type:Provider Instructions for Treatment How to Access Health Informa tion Online using Patient Portal and [employer] Apps Indication:BMI 35.0-35.9,adult Start:03-Dec-2021 Instruction Type:Patient Education Patient Instructions Indication:Current nonsmoker (Renamed from Current non-smoker) Start:17-Nov-2021 Instruction Type:Provider Instructions for Treatment How to Access Health Informa tion Online using Patient Portal and [employer] Apps Indication:Current nonsmoker (Renamed from Current non-smoker) Start:17-Nov-2021 Instruction Type:Patient Education Patient Instructions Indication:BMI 35.0-35.9,adult Start:13-Oct-2021 Instruction Type:Provider Instructions for Treatment How to Access Health Informa tion Online using Patient Portal and [employer] Indication:BMI 35.0-35.9,adult Start:13-Oct-2021 Instruction Type:Patient Education Patient Instructions Indication:Current nonsmoker (Renamed from Current non-smoker) Start:29-Sep-2021 Instruction Type:Provider Instructions for Treatment How to Access Health Informa tion Online using Patient Portal and [employer] Apps Indication:Current nonsmoker (Renamed from Current non-smoker) Start:29-Sep-2021 Instruction Type:Patient Education How to Access Health Informa tion Online using Patient Portal and [employer] Apps Indication:Current nonsmoker (Renamed from Current non-smoker) Start:21-Apr-2021 Instruction Type:Patient Education Patient Instructions Indication:Current nonsmoker (Renamed from Current non-smoker) Start:21-Apr-2021 Instruction Type:Provider Instructions for Treatment How to Access Health Informa tion Online using Patient Portal and [employer] Apps Indication:Current nonsmoker (Renamed from Current non-smoker) Start:19-Mar-2021 Instruction Type:Patient Education Patient Instructions Indication:Current nonsmoker (Renamed from Current non-smoker) Start:19-Mar-2021 Instruction Type:Provider Instructions for Treatment How to Access Health Informa tion Online using Patient Portal and [employer] Apps Indication:Current nonsmoker (Renamed from Current non-smoker) Start:05-Mar-2021 Instruction Type:Patient Education Patient Instructions Indication:Current nonsmoker (Renamed from Current non-smoker) Start:05-Mar-2021 Instruction Type:Provider Instructions for Treatment How to Access Health Informa tion Online using Patient Portal and [employer] Indication:Current nonsmoker (Renamed from Current non-smoker) Start:20-Feb-2021 Instruction Type:Patient Education Patient Instructions Indication:Current nonsmoker (Renamed from Current non-smoker) Start:20-Feb-2021 Instruction Type:Provider Instructions for Treatment Patient Instructions Indication:Current nonsmoker (Renamed from Current non-smoker) Start:10-Feb-2021 Instruction Type:Provider Instructions for Treatment How to Access Health Informa tion Online using Patient Portal and [employer] Indication:Current nonsmoker (Renamed from Current non-smoker) Start:10-Feb-2021 Instruction Type:Patient Education How to Access Health Informa tion Online using Patient Portal and [employer] Apps Indication:Current nonsmoker (Renamed from Current non-smoker) Start:25-Dec-2020 Instruction Type:Patient Education Patient Instructions Indication:Current nonsmoker (Renamed from Current non-smoker) Start:25-Dec-2020 Instruction Type:Provider Instructions for Treatment obesity counseling Indication:Uncontrolled type 2 diabetes mellitus Start:09-Dec-2020 Instruction Type:Provider Instructions for Treatment How to Access Health Informa tion Online using Patient Portal and [employer] Apps Indication:Current nonsmoker (Renamed from Current non-smoker) Start:09-Dec-2020 Instruction Type:Patient Education Patient Instructions Indication:Current nonsmoker (Renamed from Current non-smoker) Start:09-Dec-2020 Instruction Type:Provider Instructions for Treatment How to access health informa tion online Indication:Current nonsmoker (Renamed from Current non-smoker) Start:16-Oct-2020 Instruction Type:Patient Education How to access health informa tion online - Detail Indication:Current nonsmoker (Renamed from Current non-smoker) Start:16-Oct-2020 Instruction Type:Patient Education Patient Instructions Indication:Current nonsmoker (Renamed from Current non-smoker) Start:16-Oct-2020 Instruction Type:Provider Instructions for Treatment How to access health informa tion online Indication:BMI 38.0-38.9,adult Start:15-Dec-2018 Instruction Type:Patient Education How to access health informa tion online - Detail Indication:BMI 38.0-38.9,adult Start:15-Dec-2018 Instruction Type:Patient Education Patient Instructions Indication:BMI 38.0-38.9,adult Start:15-Dec-2018 Instruction Type:Provider Instructions for Treatment Patient Instructions Indication:Encounter for annual general medical examination with abnormal findings in adult Start:09-Sep-2018 Instruction Type:Provider Instructions for Treatment obesity counseling Indication:Uncontrolled type 2 diabetes mellitus Start:09-Sep-2018 Instruction Type:Provider Instructions for Treatment How to access health informa tion online Indication:Dysuria Start:24-Aug-2018 Instruction Type:Patient Education How to access health informa tion online - Detail Indication:Dysuria Start:24-Aug-2018 Instruction Type:Patient Education Patient Instructions Indication:Dysuria Start:24-Aug-2018 Instruction Type:Provider Instructions for Treatment How to access health informa tion online Indication:Uncontrolled type 2 diabetes mellitus Start:05-May-2018 Instruction Type:Patient Education How to access health informa tion online - Detail Indication:Uncontrolled type 2 diabetes mellitus Start:05-May-2018 Instruction Type:Patient Education Patient Instructions Indication:Uncontrolled type 2 diabetes mellitus Start:05-May-2018 Instruction Type:Provider Instructions for Treatment How to access health informa tion online Indication:Diabetes type 2, controlled Start:30-Dec-2017 Instruction Type:Patient Education How to access health informa tion online - Detail Indication:Diabetes type 2, controlled Start:30-Dec-2017 Instruction Type:Patient Education Patient Instructions Indication:Diabetes type 2, controlled Start:30-Dec-2017 Instruction Type:Provider Instructions for Treatment How to access health informa tion online Indication:Low back pain Start:06-Dec-2017 Instruction Type:Patient Education How to access health informa tion online - Detail Indication:Low back pain Start:06-Dec-2017 Instruction Type:Patient Education Patient Instructions Indication:Low back pain Start:06-Dec-2017 Instruction Type:Provider Instructions for Treatment How to access health informa tion online Indication:Lower abdominal pain Start:03-Dec-2017 Instruction Type:Patient Education How to access health informa tion online - Detail Indication:Lower abdominal pain Start:03-Dec-2017 Instruction Type:Patient Education Patient Instructions Indication:Lower abdominal pain Start:03-Dec-2017 Instruction Type:Provider Instructions for Treatment How to access health informa tion online Indication:Diabetes type 2, controlled Start:24-Sep-2017 Instruction Type:Patient Education How to access health informa tion online - Detail Indication:Diabetes type 2, controlled Start:24-Sep-2017 Instruction Type:Patient Education Patient Instructions Indication:Diabetes type 2, controlled Start:24-Sep-2017 Instruction Type:Provider Instructions for Treatment How to access health informa tion online Indication:Diabetes type 2, controlled Start:20-May-2017 Instruction Type:Patient Education How to access health informa tion online - Detail Indication:Diabetes type 2, controlled Start:20-May-2017 Instruction Type:Patient Education Patient Instructions Indication:Diabetes type 2, controlled Start:20-May-2017 Instruction Type:Provider Instructions for Treatment How to access health informa tion online Indication:Current smoker Start:14-Jan-2017 Instruction Type:Patient Education How to access health informa tion online - Detail Indication:Current smoker Start:14-Jan-2017 Instruction Type:Patient Education Patient Instructions Indication:Current smoker Start:14-Jan-2017 Instruction Type:Provider Instructions for Treatment How to access health informa tion online Indication:Current nonsmoker (Renamed from Current non-smoker) Start:11-Jan-2017 Instruction Type:Patient Education How to access health informa tion online - Detail Indication:Current nonsmoker (Renamed from Current non-smoker) Start:11-Jan-2017 Instruction Type:Patient Education Patient Instructions Indication:Current nonsmoker (Renamed from Current non-smoker) Start:11-Jan-2017 Instruction Type:Provider Instructions for Treatment How to access health informa tion online Indication:Hypertension Start:09-Sep-2016 Instruction Type:Patient Education How to access health informa tion online - Detail Indication:Hypertension Start:09-Sep-2016 Instruction Type:Patient Education Patient Instructions Indication:Hypertension Start:09-Sep-2016 Instruction Type:Provider Instructions for Treatment How to access health informa tion online Indication:Hypertension Start:03-Apr-2016 Instruction Type:Patient Education How to access health informa tion online - Detail Indication:Hypertension Start:03-Apr-2016 Instruction Type:Patient Education Patient Instructions Indication:Hypertension Start:03-Apr-2016 Instruction Type:Provider Instructions for Treatment How to access health informa tion online Indication:Leg wound, left Start:08-Oct-2015 Instruction Type:Patient Education How to access health informa tion online - Detail Indication:Leg wound, left Start:08-Oct-2015 Instruction Type:Patient Education Patient Instructions Indication:Leg wound, left Start:08-Oct-2015 Instruction Type:Provider Instructions for Treatment How to access health informa tion online Indication:Hypertension Start:20-Sep-2015 Instruction Type:Patient Education How to access health informa tion online - Detail Indication:Hypertension Start:20-Sep-2015 Instruction Type:Patient Education Patient Instructions Indication:Hypertension Start:20-Sep-2015 Instruction Type:Provider Instructions for Treatment Patient Instructions Indication:Hypertension Start:10-May-2015 Instruction Type:Provider Instructions for Treatment Patient Instructions Indication:Infection Start:28-Aug-2013 Instruction Type:Provider Instructions for Treatment Patient Instructions Indication:Infection Start:25-Aug-2013 Instruction Type:Provider Instructions for Treatment Patient Instructions Indication:Infection Start:24-Aug-2013 Instruction Type:Provider Instructions for Treatment Patient Instructions Indication:Infection Start:23-Aug-2013 Instruction Type:Provider Instructions for Treatment Patient Instructions Indication:Hypertension Start:30-Jun-2013 Instruction Type:Provider Instructions for Treatment Patient Instructions Indication:Arthritis Start:30-Jun-2013 Instruction Type:Provider Instructions for Treatment [facility]; [facility] Work Phone: Instructions* Name Dates Details Patient Instructions Indication:BMI 35.0-35.9,adult Start:03-Dec-2021 Instruction Type:Provider Instructions for Treatment How to Access Health Informa tion Online using Patient Portal and [employer] Indication:BMI 35.0-35.9,adult Start:03-Dec-2021 Instruction Type:Patient Education Patient Instructions Indication:Current nonsmoker (Renamed from Current non-smoker) Start:17-Nov-2021 Instruction Type:Provider Instructions for Treatment How to Access Health Informa tion Online using Patient Portal and [employer] Apps Indication:Current nonsmoker (Renamed from Current non-smoker) Start:17-Nov-2021 Instruction Type:Patient Education Patient Instructions Indication:BMI 35.0-35.9,adult Start:13-Oct-2021 Instruction Type:Provider Instructions for Treatment How to Access Health Informa tion Online using Patient Portal and [employer] Indication:BMI 35.0-35.9,adult Start:13-Oct-2021 Instruction Type:Patient Education Patient Instructions Indication:Current nonsmoker (Renamed from Current non-smoker) Start:29-Sep-2021 Instruction Type:Provider Instructions for Treatment How to Access Health Informa tion Online using Patient Portal and [employer] Indication:Current nonsmoker (Renamed from Current non-smoker) Start:29-Sep-2021 Instruction Type:Patient Education How to Access Health Informa tion Online using Patient Portal and [employer] Indication:Current nonsmoker (Renamed from Current non-smoker) Start:21-Apr-2021 Instruction Type:Patient Education Patient Instructions Indication:Current nonsmoker (Renamed from Current non-smoker) Start:21-Apr-2021 Instruction Type:Provider Instructions for Treatment How to Access Health Informa tion Online using Patient Portal and [employer] Indication:Current nonsmoker (Renamed from Current non-smoker) Start:19-Mar-2021 Instruction Type:Patient Education Patient Instructions Indication:Current nonsmoker (Renamed from Current non-smoker) Start:19-Mar-2021 Instruction Type:Provider Instructions for Treatment How to Access Health Informa tion Online using Patient Portal and [employer] Apps Indication:Current nonsmoker (Renamed from Current non-smoker) Start:05-Mar-2021 Instruction Type:Patient Education Patient Instructions Indication:Current nonsmoker (Renamed from Current non-smoker) Start:05-Mar-2021 Instruction Type:Provider Instructions for Treatment How to Access Health Informa tion Online using Patient Portal and [employer] Apps Indication:Current nonsmoker (Renamed from Current non-smoker) Start:20-Feb-2021 Instruction Type:Patient Education Patient Instructions Indication:Current nonsmoker (Renamed from Current non-smoker) Start:20-Feb-2021 Instruction Type:Provider Instructions for Treatment Patient Instructions Indication:Current nonsmoker (Renamed from Current non-smoker) Start:10-Feb-2021 Instruction Type:Provider Instructions for Treatment How to Access Health Informa tion Online using Patient Portal and [employer] Apps Indication:Current nonsmoker (Renamed from Current non-smoker) Start:10-Feb-2021 Instruction Type:Patient Education How to Access Health Informa tion Online using Patient Portal and [employer] Apps Indication:Current nonsmoker (Renamed from Current non-smoker) Start:25-Dec-2020 Instruction Type:Patient Education Patient Instructions Indication:Current nonsmoker (Renamed from Current non-smoker) Start:25-Dec-2020 Instruction Type:Provider Instructions for Treatment obesity counseling Indication:Uncontrolled type 2 diabetes mellitus Start:09-Dec-2020 Instruction Type:Provider Instructions for Treatment How to Access Health Informa tion Online using Patient Portal and [employer] Indication:Current nonsmoker (Renamed from Current non-smoker) Start:09-Dec-2020 Instruction Type:Patient Education Patient Instructions Indication:Current nonsmoker (Renamed from Current non-smoker) Start:09-Dec-2020 Instruction Type:Provider Instructions for Treatment How to access health informa tion online Indication:Current nonsmoker (Renamed from Current non-smoker) Start:16-Oct-2020 Instruction Type:Patient Education How to access health informa tion online - Detail Indication:Current nonsmoker (Renamed from Current non-smoker) Start:16-Oct-2020 Instruction Type:Patient Education Patient Instructions Indication:Current nonsmoker (Renamed from Current non-smoker) Start:16-Oct-2020 Instruction Type:Provider Instructions for Treatment How to access health informa tion online Indication:BMI 38.0-38.9,adult Start:15-Dec-2018 Instruction Type:Patient Education How to access health informa tion online - Detail Indication:BMI 38.0-38.9,adult Start:15-Dec-2018 Instruction Type:Patient Education Patient Instructions Indication:BMI 38.0-38.9,adult Start:15-Dec-2018 Instruction Type:Provider Instructions for Treatment Patient Instructions Indication:Encounter for annual general medical examination with abnormal findings in adult Start:09-Sep-2018 Instruction Type:Provider Instructions for Treatment obesity counseling Indication:Uncontrolled type 2 diabetes mellitus Start:09-Sep-2018 Instruction Type:Provider Instructions for Treatment How to access health informa tion online Indication:Dysuria Start:24-Aug-2018 Instruction Type:Patient Education How to access health informa tion online - Detail Indication:Dysuria Start:24-Aug-2018 Instruction Type:Patient Education Patient Instructions Indication:Dysuria Start:24-Aug-2018 Instruction Type:Provider Instructions for Treatment How to access health informa tion online Indication:Uncontrolled type 2 diabetes mellitus Start:05-May-2018 Instruction Type:Patient Education How to access health informa tion online - Detail Indication:Uncontrolled type 2 diabetes mellitus Start:05-May-2018 Instruction Type:Patient Education Patient Instructions Indication:Uncontrolled type 2 diabetes mellitus Start:05-May-2018 Instruction Type:Provider Instructions for Treatment How to access health informa tion online Indication:Diabetes type 2, controlled Start:30-Dec-2017 Instruction Type:Patient Education How to access health informa tion online - Detail Indication:Diabetes type 2, controlled Start:30-Dec-2017 Instruction Type:Patient Education Patient Instructions Indication:Diabetes type 2, controlled Start:30-Dec-2017 Instruction Type:Provider Instructions for Treatment How to access health informa tion online Indication:Low back pain Start:06-Dec-2017 Instruction Type:Patient Education How to access health informa tion online - Detail Indication:Low back pain Start:06-Dec-2017 Instruction Type:Patient Education Patient Instructions Indication:Low back pain Start:06-Dec-2017 Instruction Type:Provider Instructions for Treatment How to access health informa tion online Indication:Lower abdominal pain Start:03-Dec-2017 Instruction Type:Patient Education How to access health informa tion online - Detail Indication:Lower abdominal pain Start:03-Dec-2017 Instruction Type:Patient Education Patient Instructions Indication:Lower abdominal pain Start:03-Dec-2017 Instruction Type:Provider Instructions for Treatment How to access health informa tion online Indication:Diabetes type 2, controlled Start:24-Sep-2017 Instruction Type:Patient Education How to access health informa tion online - Detail Indication:Diabetes type 2, controlled Start:24-Sep-2017 Instruction Type:Patient Education Patient Instructions Indication:Diabetes type 2, controlled Start:24-Sep-2017 Instruction Type:Provider Instructions for Treatment How to access health informa tion online Indication:Diabetes type 2, controlled Start:20-May-2017 Instruction Type:Patient Education How to access health informa tion online - Detail Indication:Diabetes type 2, controlled Start:20-May-2017 Instruction Type:Patient Education Patient Instructions Indication:Diabetes type 2, controlled Start:20-May-2017 Instruction Type:Provider Instructions for Treatment How to access health informa tion online Indication:Current smoker Start:14-Jan-2017 Instruction Type:Patient Education How to access health informa tion online - Detail Indication:Current smoker Start:14-Jan-2017 Instruction Type:Patient Education Patient Instructions Indication:Current smoker Start:14-Jan-2017 Instruction Type:Provider Instructions for Treatment How to access health informa tion online Indication:Current nonsmoker (Renamed from Current non-smoker) Start:11-Jan-2017 Instruction Type:Patient Education How to access health informa tion online - Detail Indication:Current nonsmoker (Renamed from Current non-smoker) Start:11-Jan-2017 Instruction Type:Patient Education Patient Instructions Indication:Current nonsmoker (Renamed from Current non-smoker) Start:11-Jan-2017 Instruction Type:Provider Instructions for Treatment How to access health informa tion online Indication:Hypertension Start:09-Sep-2016 Instruction Type:Patient Education How to access health informa tion online - Detail Indication:Hypertension Start:09-Sep-2016 Instruction Type:Patient Education Patient Instructions Indication:Hypertension Start:09-Sep-2016 Instruction Type:Provider Instructions for Treatment How to access health informa tion online Indication:Hypertension Start:03-Apr-2016 Instruction Type:Patient Education How to access health informa tion online - Detail Indication:Hypertension Start:03-Apr-2016 Instruction Type:Patient Education Patient Instructions Indication:Hypertension Start:03-Apr-2016 Instruction Type:Provider Instructions for Treatment How to access health informa tion online Indication:Leg wound, left Start:08-Oct-2015 Instruction Type:Patient Education How to access health informa tion online - Detail Indication:Leg wound, left Start:08-Oct-2015 Instruction Type:Patient Education Patient Instructions Indication:Leg wound, left Start:08-Oct-2015 Instruction Type:Provider Instructions for Treatment How to access health informa tion online Indication:Hypertension Start:20-Sep-2015 Instruction Type:Patient Education How to access health informa tion online - Detail Indication:Hypertension Start:20-Sep-2015 Instruction Type:Patient Education Patient Instructions Indication:Hypertension Start:20-Sep-2015 Instruction Type:Provider Instructions for Treatment Patient Instructions Indication:Hypertension Start:10-May-2015 Instruction Type:Provider Instructions for Treatment Patient Instructions Indication:Infection Start:28-Aug-2013 Instruction Type:Provider Instructions for Treatment Patient Instructions Indication:Infection Start:25-Aug-2013 Instruction Type:Provider Instructions for Treatment Patient Instructions Indication:Infection Start:24-Aug-2013 Instruction Type:Provider Instructions for Treatment Patient Instructions Indication:Infection Start:23-Aug-2013 Instruction Type:Provider Instructions for Treatment Patient Instructions Indication:Hypertension Start:30-Jun-2013 Instruction Type:Provider Instructions for Treatment Patient Instructions Indication:Arthritis Start:30-Jun-2013 Instruction Type:Provider Instructions for Treatment [facility] Work Phone: Instructions* Name Dates Details Patient Instructions Indication:Hypercholesteremia Start:08-Feb-2023 Instruction Type:Provider Instructions for Treatment How to Access Health Informa tion Online using Patient Portal and [employer] Apps Indication:Hypercholesteremia Start:08-Feb-2023 Instruction Type:Patient Education Patient Instructions Indication:BMI 35.0-35.9,adult Start:03-Dec-2021 Instruction Type:Provider Instructions for Treatment How to Access Health Informa tion Online using Patient Portal and [employer] Apps Indication:BMI 35.0-35.9,adult Start:03-Dec-2021 Instruction Type:Patient Education Patient Instructions Indication:Current nonsmoker (Renamed from Current non-smoker) Start:17-Nov-2021 Instruction Type:Provider Instructions for Treatment How to Access Health Informa tion Online using Patient Portal and [employer] Indication:Current nonsmoker (Renamed from Current non-smoker) Start:17-Nov-2021 Instruction Type:Patient Education Patient Instructions Indication:BMI 35.0-35.9,adult Start:13-Oct-2021 Instruction Type:Provider Instructions for Treatment How to Access Health Informa tion Online using Patient Portal and [employer] Indication:BMI 35.0-35.9,adult Start:13-Oct-2021 Instruction Type:Patient Education Patient Instructions Indication:Current nonsmoker (Renamed from Current non-smoker) Start:29-Sep-2021 Instruction Type:Provider Instructions for Treatment How to Access Health Informa tion Online using Patient Portal and [employer] Indication:Current nonsmoker (Renamed from Current non-smoker) Start:29-Sep-2021 Instruction Type:Patient Education How to Access Health Informa tion Online using Patient Portal and [employer] Apps Indication:Current nonsmoker (Renamed from Current non-smoker) Start:21-Apr-2021 Instruction Type:Patient Education Patient Instructions Indication:Current nonsmoker (Renamed from Current non-smoker) Start:21-Apr-2021 Instruction Type:Provider Instructions for Treatment How to Access Health Informa tion Online using Patient Portal and [employer] Indication:Current nonsmoker (Renamed from Current non-smoker) Start:19-Mar-2021 Instruction Type:Patient Education Patient Instructions Indication:Current nonsmoker (Renamed from Current non-smoker) Start:19-Mar-2021 Instruction Type:Provider Instructions for Treatment How to Access Health Informa tion Online using Patient Portal and [employer] Apps Indication:Current nonsmoker (Renamed from Current non-smoker) Start:05-Mar-2021 Instruction Type:Patient Education Patient Instructions Indication:Current nonsmoker (Renamed from Current non-smoker) Start:05-Mar-2021 Instruction Type:Provider Instructions for Treatment How to Access Health Informa tion Online using Patient Portal and [employer] Indication:Current nonsmoker (Renamed from Current non-smoker) Start:20-Feb-2021 Instruction Type:Patient Education Patient Instructions Indication:Current nonsmoker (Renamed from Current non-smoker) Start:20-Feb-2021 Instruction Type:Provider Instructions for Treatment Patient Instructions Indication:Current nonsmoker (Renamed from Current non-smoker) Start:10-Feb-2021 Instruction Type:Provider Instructions for Treatment How to Access Health Informa tion Online using Patient Portal and [employer] Apps Indication:Current nonsmoker (Renamed from Current non-smoker) Start:10-Feb-2021 Instruction Type:Patient Education How to Access Health Informa tion Online using Patient Portal and [employer] Apps Indication:Current nonsmoker (Renamed from Current non-smoker) Start:25-Dec-2020 Instruction Type:Patient Education Patient Instructions Indication:Current nonsmoker (Renamed from Current non-smoker) Start:25-Dec-2020 Instruction Type:Provider Instructions for Treatment obesity counseling Indication:Uncontrolled type 2 diabetes mellitus Start:09-Dec-2020 Instruction Type:Provider Instructions for Treatment How to Access Health Informa tion Online using Patient Portal and [employer] Apps Indication:Current nonsmoker (Renamed from Current non-smoker) Start:09-Dec-2020 Instruction Type:Patient Education Patient Instructions Indication:Current nonsmoker (Renamed from Current non-smoker) Start:09-Dec-2020 Instruction Type:Provider Instructions for Treatment How to access health informa tion online Indication:Current nonsmoker (Renamed from Current non-smoker) Start:16-Oct-2020 Instruction Type:Patient Education How to access health informa tion online - Detail Indication:Current nonsmoker (Renamed from Current non-smoker) Start:16-Oct-2020 Instruction Type:Patient Education Patient Instructions Indication:Current nonsmoker (Renamed from Current non-smoker) Start:16-Oct-2020 Instruction Type:Provider Instructions for Treatment How to access health informa tion online Indication:BMI 38.0-38.9,adult Start:15-Dec-2018 Instruction Type:Patient Education How to access health informa tion online - Detail Indication:BMI 38.0-38.9,adult Start:15-Dec-2018 Instruction Type:Patient Education Patient Instructions Indication:BMI 38.0-38.9,adult Start:15-Dec-2018 Instruction Type:Provider Instructions for Treatment Patient Instructions Indication:Encounter for annual general medical examination with abnormal findings in adult Start:09-Sep-2018 Instruction Type:Provider Instructions for Treatment obesity counseling Indication:Uncontrolled type 2 diabetes mellitus Start:09-Sep-2018 Instruction Type:Provider Instructions for Treatment How to access health informa tion online Indication:Dysuria Start:24-Aug-2018 Instruction Type:Patient Education How to access health informa tion online - Detail Indication:Dysuria Start:24-Aug-2018 Instruction Type:Patient Education Patient Instructions Indication:Dysuria Start:24-Aug-2018 Instruction Type:Provider Instructions for Treatment How to access health informa tion online Indication:Uncontrolled type 2 diabetes mellitus Start:05-May-2018 Instruction Type:Patient Education How to access health informa tion online - Detail Indication:Uncontrolled type 2 diabetes mellitus Start:05-May-2018 Instruction Type:Patient Education Patient Instructions Indication:Uncontrolled type 2 diabetes mellitus Start:05-May-2018 Instruction Type:Provider Instructions for Treatment How to access health informa tion online Indication:Diabetes type 2, controlled Start:30-Dec-2017 Instruction Type:Patient Education How to access health informa tion online - Detail Indication:Diabetes type 2, controlled Start:30-Dec-2017 Instruction Type:Patient Education Patient Instructions Indication:Diabetes type 2, controlled Start:30-Dec-2017 Instruction Type:Provider Instructions for Treatment How to access health informa tion online Indication:Low back pain Start:06-Dec-2017 Instruction Type:Patient Education How to access health informa tion online - Detail Indication:Low back pain Start:06-Dec-2017 Instruction Type:Patient Education Patient Instructions Indication:Low back pain Start:06-Dec-2017 Instruction Type:Provider Instructions for Treatment How to access health informa tion online Indication:Lower abdominal pain Start:03-Dec-2017 Instruction Type:Patient Education How to access health informa tion online - Detail Indication:Lower abdominal pain Start:03-Dec-2017 Instruction Type:Patient Education Patient Instructions Indication:Lower abdominal pain Start:03-Dec-2017 Instruction Type:Provider Instructions for Treatment How to access health informa tion online Indication:Diabetes type 2, controlled Start:24-Sep-2017 Instruction Type:Patient Education How to access health informa tion online - Detail Indication:Diabetes type 2, controlled Start:24-Sep-2017 Instruction Type:Patient Education Patient Instructions Indication:Diabetes type 2, controlled Start:24-Sep-2017 Instruction Type:Provider Instructions for Treatment How to access health informa tion online Indication:Diabetes type 2, controlled Start:20-May-2017 Instruction Type:Patient Education How to access health informa tion online - Detail Indication:Diabetes type 2, controlled Start:20-May-2017 Instruction Type:Patient Education Patient Instructions Indication:Diabetes type 2, controlled Start:20-May-2017 Instruction Type:Provider Instructions for Treatment How to access health informa tion online Indication:Current smoker Start:14-Jan-2017 Instruction Type:Patient Education How to access health informa tion online - Detail Indication:Current smoker Start:14-Jan-2017 Instruction Type:Patient Education Patient Instructions Indication:Current smoker Start:14-Jan-2017 Instruction Type:Provider Instructions for Treatment How to access health informa tion online Indication:Current nonsmoker (Renamed from Current non-smoker) Start:11-Jan-2017 Instruction Type:Patient Education How to access health informa tion online - Detail Indication:Current nonsmoker (Renamed from Current non-smoker) Start:11-Jan-2017 Instruction Type:Patient Education Patient Instructions Indication:Current nonsmoker (Renamed from Current non-smoker) Start:11-Jan-2017 Instruction Type:Provider Instructions for Treatment How to access health informa tion online Indication:Hypertension Start:09-Sep-2016 Instruction Type:Patient Education How to access health informa tion online - Detail Indication:Hypertension Start:09-Sep-2016 Instruction Type:Patient Education Patient Instructions Indication:Hypertension Start:09-Sep-2016 Instruction Type:Provider Instructions for Treatment How to access health informa tion online Indication:Hypertension Start:03-Apr-2016 Instruction Type:Patient Education How to access health informa tion online - Detail Indication:Hypertension Start:03-Apr-2016 Instruction Type:Patient Education Patient Instructions Indication:Hypertension Start:03-Apr-2016 Instruction Type:Provider Instructions for Treatment How to access health informa tion online Indication:Leg wound, left Start:08-Oct-2015 Instruction Type:Patient Education How to access health informa tion online - Detail Indication:Leg wound, left Start:08-Oct-2015 Instruction Type:Patient Education Patient Instructions Indication:Leg wound, left Start:08-Oct-2015 Instruction Type:Provider Instructions for Treatment How to access health informa tion online Indication:Hypertension Start:20-Sep-2015 Instruction Type:Patient Education How to access health informa tion online - Detail Indication:Hypertension Start:20-Sep-2015 Instruction Type:Patient Education Patient Instructions Indication:Hypertension Start:20-Sep-2015 Instruction Type:Provider Instructions for Treatment Patient Instructions Indication:Hypertension Start:10-May-2015 Instruction Type:Provider Instructions for Treatment Patient Instructions Indication:Infection Start:28-Aug-2013 Instruction Type:Provider Instructions for Treatment Patient Instructions Indication:Infection Start:25-Aug-2013 Instruction Type:Provider Instructions for Treatment Patient Instructions Indication:Infection Start:24-Aug-2013 Instruction Type:Provider Instructions for Treatment Patient Instructions Indication:Infection Start:23-Aug-2013 Instruction Type:Provider Instructions for Treatment Patient Instructions Indication:Hypertension Start:30-Jun-2013 Instruction Type:Provider Instructions for Treatment Patient Instructions Indication:Arthritis Start:30-Jun-2013 Instruction Type:Provider Instructions for Treatment [facility]; [facility] Work Phone: Instructions* Name Dates Details Patient Instructions Indication:Current nonsmoker (Renamed from Current non-smoker) Start:22-Feb-2023 Instruction Type:Provider Instructions for Treatment How to Access Health Informa tion Online using Patient Portal and [employer] Apps Indication:Current nonsmoker (Renamed from Current non-smoker) Start:22-Feb-2023 Instruction Type:Patient Education Patient Instructions Indication:Hypercholesteremia Start:08-Feb-2023 Instruction Type:Provider Instructions for Treatment How to Access Health Informa tion Online using Patient Portal and [employer] Apps Indication:Hypercholesteremia Start:08-Feb-2023 Instruction Type:Patient Education Patient Instructions Indication:BMI 35.0-35.9,adult Start:03-Dec-2021 Instruction Type:Provider Instructions for Treatment How to Access Health Informa tion Online using Patient Portal and [employer] Indication:BMI 35.0-35.9,adult Start:03-Dec-2021 Instruction Type:Patient Education Patient Instructions Indication:Current nonsmoker (Renamed from Current non-smoker) Start:17-Nov-2021 Instruction Type:Provider Instructions for Treatment How to Access Health Informa tion Online using Patient Portal and [employer] Apps Indication:Current nonsmoker (Renamed from Current non-smoker) Start:17-Nov-2021 Instruction Type:Patient Education Patient Instructions Indication:BMI 35.0-35.9,adult Start:13-Oct-2021 Instruction Type:Provider Instructions for Treatment How to Access Health Informa tion Online using Patient Portal and [employer] Indication:BMI 35.0-35.9,adult Start:13-Oct-2021 Instruction Type:Patient Education Patient Instructions Indication:Current nonsmoker (Renamed from Current non-smoker) Start:29-Sep-2021 Instruction Type:Provider Instructions for Treatment How to Access Health Informa tion Online using Patient Portal and [employer] Indication:Current nonsmoker (Renamed from Current non-smoker) Start:29-Sep-2021 Instruction Type:Patient Education How to Access Health Informa tion Online using Patient Portal and [employer] Indication:Current nonsmoker (Renamed from Current non-smoker) Start:21-Apr-2021 Instruction Type:Patient Education Patient Instructions Indication:Current nonsmoker (Renamed from Current non-smoker) Start:21-Apr-2021 Instruction Type:Provider Instructions for Treatment How to Access Health Informa tion Online using Patient Portal and [employer] Indication:Current nonsmoker (Renamed from Current non-smoker) Start:19-Mar-2021 Instruction Type:Patient Education Patient Instructions Indication:Current nonsmoker (Renamed from Current non-smoker) Start:19-Mar-2021 Instruction Type:Provider Instructions for Treatment How to Access Health Informa tion Online using Patient Portal and [employer] Indication:Current nonsmoker (Renamed from Current non-smoker) Start:05-Mar-2021 Instruction Type:Patient Education Patient Instructions Indication:Current nonsmoker (Renamed from Current non-smoker) Start:05-Mar-2021 Instruction Type:Provider Instructions for Treatment How to Access Health Informa tion Online using Patient Portal and [employer] Apps Indication:Current nonsmoker (Renamed from Current non-smoker) Start:20-Feb-2021 Instruction Type:Patient Education Patient Instructions Indication:Current nonsmoker (Renamed from Current non-smoker) Start:20-Feb-2021 Instruction Type:Provider Instructions for Treatment Patient Instructions Indication:Current nonsmoker (Renamed from Current non-smoker) Start:10-Feb-2021 Instruction Type:Provider Instructions for Treatment How to Access Health Informa tion Online using Patient Portal and [employer] Indication:Current nonsmoker (Renamed from Current non-smoker) Start:10-Feb-2021 Instruction Type:Patient Education How to Access Health Informa tion Online using Patient Portal and [employer] Apps Indication:Current nonsmoker (Renamed from Current non-smoker) Start:25-Dec-2020 Instruction Type:Patient Education Patient Instructions Indication:Current nonsmoker (Renamed from Current non-smoker) Start:25-Dec-2020 Instruction Type:Provider Instructions for Treatment obesity counseling Indication:Uncontrolled type 2 diabetes mellitus Start:09-Dec-2020 Instruction Type:Provider Instructions for Treatment How to Access Health Informa tion Online using Patient Portal and [employer] Apps Indication:Current nonsmoker (Renamed from Current non-smoker) Start:09-Dec-2020 Instruction Type:Patient Education Patient Instructions Indication:Current nonsmoker (Renamed from Current non-smoker) Start:09-Dec-2020 Instruction Type:Provider Instructions for Treatment How to access health informa tion online Indication:Current nonsmoker (Renamed from Current non-smoker) Start:16-Oct-2020 Instruction Type:Patient Education How to access health informa tion online - Detail Indication:Current nonsmoker (Renamed from Current non-smoker) Start:16-Oct-2020 Instruction Type:Patient Education Patient Instructions Indication:Current nonsmoker (Renamed from Current non-smoker) Start:16-Oct-2020 Instruction Type:Provider Instructions for Treatment How to access health informa tion online Indication:BMI 38.0-38.9,adult Start:15-Dec-2018 Instruction Type:Patient Education How to access health informa tion online - Detail Indication:BMI 38.0-38.9,adult Start:15-Dec-2018 Instruction Type:Patient Education Patient Instructions Indication:BMI 38.0-38.9,adult Start:15-Dec-2018 Instruction Type:Provider Instructions for Treatment Patient Instructions Indication:Encounter for annual general medical examination with abnormal findings in adult Start:09-Sep-2018 Instruction Type:Provider Instructions for Treatment obesity counseling Indication:Uncontrolled type 2 diabetes mellitus Start:09-Sep-2018 Instruction Type:Provider Instructions for Treatment How to access health informa tion online Indication:Dysuria Start:24-Aug-2018 Instruction Type:Patient Education How to access health informa tion online - Detail Indication:Dysuria Start:24-Aug-2018 Instruction Type:Patient Education Patient Instructions Indication:Dysuria Start:24-Aug-2018 Instruction Type:Provider Instructions for Treatment How to access health informa tion online Indication:Uncontrolled type 2 diabetes mellitus Start:05-May-2018 Instruction Type:Patient Education How to access health informa tion online - Detail Indication:Uncontrolled type 2 diabetes mellitus Start:05-May-2018 Instruction Type:Patient Education Patient Instructions Indication:Uncontrolled type 2 diabetes mellitus Start:05-May-2018 Instruction Type:Provider Instructions for Treatment How to access health informa tion online Indication:Diabetes type 2, controlled Start:30-Dec-2017 Instruction Type:Patient Education How to access health informa tion online - Detail Indication:Diabetes type 2, controlled Start:30-Dec-2017 Instruction Type:Patient Education Patient Instructions Indication:Diabetes type 2, controlled Start:30-Dec-2017 Instruction Type:Provider Instructions for Treatment How to access health informa tion online Indication:Low back pain Start:06-Dec-2017 Instruction Type:Patient Education How to access health informa tion online - Detail Indication:Low back pain Start:06-Dec-2017 Instruction Type:Patient Education Patient Instructions Indication:Low back pain Start:06-Dec-2017 Instruction Type:Provider Instructions for Treatment How to access health informa tion online Indication:Lower abdominal pain Start:03-Dec-2017 Instruction Type:Patient Education How to access health informa tion online - Detail Indication:Lower abdominal pain Start:03-Dec-2017 Instruction Type:Patient Education Patient Instructions Indication:Lower abdominal pain Start:03-Dec-2017 Instruction Type:Provider Instructions for Treatment How to access health informa tion online Indication:Diabetes type 2, controlled Start:24-Sep-2017 Instruction Type:Patient Education How to access health informa tion online - Detail Indication:Diabetes type 2, controlled Start:24-Sep-2017 Instruction Type:Patient Education Patient Instructions Indication:Diabetes type 2, controlled Start:24-Sep-2017 Instruction Type:Provider Instructions for Treatment How to access health informa tion online Indication:Diabetes type 2, controlled Start:20-May-2017 Instruction Type:Patient Education How to access health informa tion online - Detail Indication:Diabetes type 2, controlled Start:20-May-2017 Instruction Type:Patient Education Patient Instructions Indication:Diabetes type 2, controlled Start:20-May-2017 Instruction Type:Provider Instructions for Treatment How to access health informa tion online Indication:Current smoker Start:14-Jan-2017 Instruction Type:Patient Education How to access health informa tion online - Detail Indication:Current smoker Start:14-Jan-2017 Instruction Type:Patient Education Patient Instructions Indication:Current smoker Start:14-Jan-2017 Instruction Type:Provider Instructions for Treatment How to access health informa tion online Indication:Current nonsmoker (Renamed from Current non-smoker) Start:11-Jan-2017 Instruction Type:Patient Education How to access health informa tion online - Detail Indication:Current nonsmoker (Renamed from Current non-smoker) Start:11-Jan-2017 Instruction Type:Patient Education Patient Instructions Indication:Current nonsmoker (Renamed from Current non-smoker) Start:11-Jan-2017 Instruction Type:Provider Instructions for Treatment How to access health informa tion online Indication:Hypertension Start:09-Sep-2016 Instruction Type:Patient Education How to access health informa tion online - Detail Indication:Hypertension Start:09-Sep-2016 Instruction Type:Patient Education Patient Instructions Indication:Hypertension Start:09-Sep-2016 Instruction Type:Provider Instructions for Treatment How to access health informa tion online Indication:Hypertension Start:03-Apr-2016 Instruction Type:Patient Education How to access health informa tion online - Detail Indication:Hypertension Start:03-Apr-2016 Instruction Type:Patient Education Patient Instructions Indication:Hypertension Start:03-Apr-2016 Instruction Type:Provider Instructions for Treatment How to access health informa tion online Indication:Leg wound, left Start:08-Oct-2015 Instruction Type:Patient Education How to access health informa tion online - Detail Indication:Leg wound, left Start:08-Oct-2015 Instruction Type:Patient Education Patient Instructions Indication:Leg wound, left Start:08-Oct-2015 Instruction Type:Provider Instructions for Treatment How to access health informa tion online Indication:Hypertension Start:20-Sep-2015 Instruction Type:Patient Education How to access health informa tion online - Detail Indication:Hypertension Start:20-Sep-2015 Instruction Type:Patient Education Patient Instructions Indication:Hypertension Start:20-Sep-2015 Instruction Type:Provider Instructions for Treatment Patient Instructions Indication:Hypertension Start:10-May-2015 Instruction Type:Provider Instructions for Treatment Patient Instructions Indication:Infection Start:28-Aug-2013 Instruction Type:Provider Instructions for Treatment Patient Instructions Indication:Infection Start:25-Aug-2013 Instruction Type:Provider Instructions for Treatment Patient Instructions Indication:Infection Start:24-Aug-2013 Instruction Type:Provider Instructions for Treatment Patient Instructions Indication:Infection Start:23-Aug-2013 Instruction Type:Provider Instructions for Treatment Patient Instructions Indication:Hypertension Start:30-Jun-2013 Instruction Type:Provider Instructions for Treatment Patient Instructions Indication:Arthritis Start:30-Jun-2013 Instruction Type:Provider Instructions for Treatment [facility]; [facility] Work Phone: Instructions* Name Dates Details Patient Instructions Indication:BMI 38.0-38.9,adult Start:15-Mar-2023 Instruction Type:Provider Instructions for Treatment How to Access Health Informa tion Online using Patient Portal and [employer] Indication:BMI 38.0-38.9,adult Start:15-Mar-2023 Instruction Type:Patient Education Patient Instructions Indication:Current nonsmoker (Renamed from Current non-smoker) Start:22-Feb-2023 Instruction Type:Provider Instructions for Treatment How to Access Health Informa tion Online using Patient Portal and [employer] Indication:Current nonsmoker (Renamed from Current non-smoker) Start:22-Feb-2023 Instruction Type:Patient Education Patient Instructions Indication:Hypercholesteremia Start:08-Feb-2023 Instruction Type:Provider Instructions for Treatment How to Access Health Informa tion Online using Patient Portal and [employer] Apps Indication:Hypercholesteremia Start:08-Feb-2023 Instruction Type:Patient Education Patient Instructions Indication:BMI 35.0-35.9,adult Start:03-Dec-2021 Instruction Type:Provider Instructions for Treatment How to Access Health Informa tion Online using Patient Portal and [employer] Apps Indication:BMI 35.0-35.9,adult Start:03-Dec-2021 Instruction Type:Patient Education Patient Instructions Indication:Current nonsmoker (Renamed from Current non-smoker) Start:17-Nov-2021 Instruction Type:Provider Instructions for Treatment How to Access Health Informa tion Online using Patient Portal and [employer] Apps Indication:Current nonsmoker (Renamed from Current non-smoker) Start:17-Nov-2021 Instruction Type:Patient Education Patient Instructions Indication:BMI 35.0-35.9,adult Start:13-Oct-2021 Instruction Type:Provider Instructions for Treatment How to Access Health Informa tion Online using Patient Portal and [employer] Apps Indication:BMI 35.0-35.9,adult Start:13-Oct-2021 Instruction Type:Patient Education Patient Instructions Indication:Current nonsmoker (Renamed from Current non-smoker) Start:29-Sep-2021 Instruction Type:Provider Instructions for Treatment How to Access Health Informa tion Online using Patient Portal and [employer] Apps Indication:Current nonsmoker (Renamed from Current non-smoker) Start:29-Sep-2021 Instruction Type:Patient Education How to Access Health Informa tion Online using Patient Portal and [employer] Apps Indication:Current nonsmoker (Renamed from Current non-smoker) Start:21-Apr-2021 Instruction Type:Patient Education Patient Instructions Indication:Current nonsmoker (Renamed from Current non-smoker) Start:21-Apr-2021 Instruction Type:Provider Instructions for Treatment How to Access Health Informa tion Online using Patient Portal and [employer] Apps Indication:Current nonsmoker (Renamed from Current non-smoker) Start:19-Mar-2021 Instruction Type:Patient Education Patient Instructions Indication:Current nonsmoker (Renamed from Current non-smoker) Start:19-Mar-2021 Instruction Type:Provider Instructions for Treatment How to Access Health Informa tion Online using Patient Portal and [employer] Apps Indication:Current nonsmoker (Renamed from Current non-smoker) Start:05-Mar-2021 Instruction Type:Patient Education Patient Instructions Indication:Current nonsmoker (Renamed from Current non-smoker) Start:05-Mar-2021 Instruction Type:Provider Instructions for Treatment How to Access Health Informa tion Online using Patient Portal and [employer] Apps Indication:Current nonsmoker (Renamed from Current non-smoker) Start:20-Feb-2021 Instruction Type:Patient Education Patient Instructions Indication:Current nonsmoker (Renamed from Current non-smoker) Start:20-Feb-2021 Instruction Type:Provider Instructions for Treatment Patient Instructions Indication:Current nonsmoker (Renamed from Current non-smoker) Start:10-Feb-2021 Instruction Type:Provider Instructions for Treatment How to Access Health Informa tion Online using Patient Portal and [employer] Apps Indication:Current nonsmoker (Renamed from Current non-smoker) Start:10-Feb-2021 Instruction Type:Patient Education How to Access Health Informa tion Online using Patient Portal and [employer] Apps Indication:Current nonsmoker (Renamed from Current non-smoker) Start:25-Dec-2020 Instruction Type:Patient Education Patient Instructions Indication:Current nonsmoker (Renamed from Current non-smoker) Start:25-Dec-2020 Instruction Type:Provider Instructions for Treatment obesity counseling Indication:Uncontrolled type 2 diabetes mellitus Start:09-Dec-2020 Instruction Type:Provider Instructions for Treatment How to Access Health Informa tion Online using Patient Portal and [employer] Apps Indication:Current nonsmoker (Renamed from Current non-smoker) Start:09-Dec-2020 Instruction Type:Patient Education Patient Instructions Indication:Current nonsmoker (Renamed from Current non-smoker) Start:09-Dec-2020 Instruction Type:Provider Instructions for Treatment How to access health informa tion online Indication:Current nonsmoker (Renamed from Current non-smoker) Start:16-Oct-2020 Instruction Type:Patient Education How to access health informa tion online - Detail Indication:Current nonsmoker (Renamed from Current non-smoker) Start:16-Oct-2020 Instruction Type:Patient Education Patient Instructions Indication:Current nonsmoker (Renamed from Current non-smoker) Start:16-Oct-2020 Instruction Type:Provider Instructions for Treatment How to access health informa tion online Indication:BMI 38.0-38.9,adult Start:15-Dec-2018 Instruction Type:Patient Education How to access health informa tion online - Detail Indication:BMI 38.0-38.9,adult Start:15-Dec-2018 Instruction Type:Patient Education Patient Instructions Indication:BMI 38.0-38.9,adult Start:15-Dec-2018 Instruction Type:Provider Instructions for Treatment Patient Instructions Indication:Encounter for annual general medical examination with abnormal findings in adult Start:09-Sep-2018 Instruction Type:Provider Instructions for Treatment obesity counseling Indication:Uncontrolled type 2 diabetes mellitus Start:09-Sep-2018 Instruction Type:Provider Instructions for Treatment How to access health informa tion online Indication:Dysuria Start:24-Aug-2018 Instruction Type:Patient Education How to access health informa tion online - Detail Indication:Dysuria Start:24-Aug-2018 Instruction Type:Patient Education Patient Instructions Indication:Dysuria Start:24-Aug-2018 Instruction Type:Provider Instructions for Treatment How to access health informa tion online Indication:Uncontrolled type 2 diabetes mellitus Start:05-May-2018 Instruction Type:Patient Education How to access health informa tion online - Detail Indication:Uncontrolled type 2 diabetes mellitus Start:05-May-2018 Instruction Type:Patient Education Patient Instructions Indication:Uncontrolled type 2 diabetes mellitus Start:05-May-2018 Instruction Type:Provider Instructions for Treatment How to access health informa tion online Indication:Diabetes type 2, controlled Start:30-Dec-2017 Instruction Type:Patient Education How to access health informa tion online - Detail Indication:Diabetes type 2, controlled Start:30-Dec-2017 Instruction Type:Patient Education Patient Instructions Indication:Diabetes type 2, controlled Start:30-Dec-2017 Instruction Type:Provider Instructions for Treatment How to access health informa tion online Indication:Low back pain Start:06-Dec-2017 Instruction Type:Patient Education How to access health informa tion online - Detail Indication:Low back pain Start:06-Dec-2017 Instruction Type:Patient Education Patient Instructions Indication:Low back pain Start:06-Dec-2017 Instruction Type:Provider Instructions for Treatment How to access health informa tion online Indication:Lower abdominal pain Start:03-Dec-2017 Instruction Type:Patient Education How to access health informa tion online - Detail Indication:Lower abdominal pain Start:03-Dec-2017 Instruction Type:Patient Education Patient Instructions Indication:Lower abdominal pain Start:03-Dec-2017 Instruction Type:Provider Instructions for Treatment How to access health informa tion online Indication:Diabetes type 2, controlled Start:24-Sep-2017 Instruction Type:Patient Education How to access health informa tion online - Detail Indication:Diabetes type 2, controlled Start:24-Sep-2017 Instruction Type:Patient Education Patient Instructions Indication:Diabetes type 2, controlled Start:24-Sep-2017 Instruction Type:Provider Instructions for Treatment How to access health informa tion online Indication:Diabetes type 2, controlled Start:20-May-2017 Instruction Type:Patient Education How to access health informa tion online - Detail Indication:Diabetes type 2, controlled Start:20-May-2017 Instruction Type:Patient Education Patient Instructions Indication:Diabetes type 2, controlled Start:20-May-2017 Instruction Type:Provider Instructions for Treatment How to access health informa tion online Indication:Current smoker Start:14-Jan-2017 Instruction Type:Patient Education How to access health informa tion online - Detail Indication:Current smoker Start:14-Jan-2017 Instruction Type:Patient Education Patient Instructions Indication:Current smoker Start:14-Jan-2017 Instruction Type:Provider Instructions for Treatment How to access health informa tion online Indication:Current nonsmoker (Renamed from Current non-smoker) Start:11-Jan-2017 Instruction Type:Patient Education How to access health informa tion online - Detail Indication:Current nonsmoker (Renamed from Current non-smoker) Start:11-Jan-2017 Instruction Type:Patient Education Patient Instructions Indication:Current nonsmoker (Renamed from Current non-smoker) Start:11-Jan-2017 Instruction Type:Provider Instructions for Treatment How to access health informa tion online Indication:Hypertension Start:09-Sep-2016 Instruction Type:Patient Education How to access health informa tion online - Detail Indication:Hypertension Start:09-Sep-2016 Instruction Type:Patient Education Patient Instructions Indication:Hypertension Start:09-Sep-2016 Instruction Type:Provider Instructions for Treatment How to access health informa tion online Indication:Hypertension Start:03-Apr-2016 Instruction Type:Patient Education How to access health informa tion online - Detail Indication:Hypertension Start:03-Apr-2016 Instruction Type:Patient Education Patient Instructions Indication:Hypertension Start:03-Apr-2016 Instruction Type:Provider Instructions for Treatment How to access health informa tion online Indication:Leg wound, left Start:08-Oct-2015 Instruction Type:Patient Education How to access health informa tion online - Detail Indication:Leg wound, left Start:08-Oct-2015 Instruction Type:Patient Education Patient Instructions Indication:Leg wound, left Start:08-Oct-2015 Instruction Type:Provider Instructions for Treatment How to access health informa tion online Indication:Hypertension Start:20-Sep-2015 Instruction Type:Patient Education How to access health informa tion online - Detail Indication:Hypertension Start:20-Sep-2015 Instruction Type:Patient Education Patient Instructions Indication:Hypertension Start:20-Sep-2015 Instruction Type:Provider Instructions for Treatment Patient Instructions Indication:Hypertension Start:10-May-2015 Instruction Type:Provider Instructions for Treatment Patient Instructions Indication:Infection Start:28-Aug-2013 Instruction Type:Provider Instructions for Treatment Patient Instructions Indication:Infection Start:25-Aug-2013 Instruction Type:Provider Instructions for Treatment Patient Instructions Indication:Infection Start:24-Aug-2013 Instruction Type:Provider Instructions for Treatment Patient Instructions Indication:Infection Start:23-Aug-2013 Instruction Type:Provider Instructions for Treatment Patient Instructions Indication:Hypertension Start:30-Jun-2013 Instruction Type:Provider Instructions for Treatment Patient Instructions Indication:Arthritis Start:30-Jun-2013 Instruction Type:Provider Instructions for Treatment [facility]; [facility] Work Phone: Instructions* Name Dates Details Patient Instructions Indication:BMI 37.0-37.9, adult Start:01-Apr-2023 Instruction Type:Provider Instructions for Treatment How to Access Health Informa tion Online using Patient Portal and [employer] Indication:BMI 37.0-37.9, adult Start:01-Apr-2023 Instruction Type:Patient Education Patient Instructions Indication:BMI 38.0-38.9,adult Start:15-Mar-2023 Instruction Type:Provider Instructions for Treatment How to Access Health Informa tion Online using Patient Portal and [employer] Indication:BMI 38.0-38.9,adult Start:15-Mar-2023 Instruction Type:Patient Education Patient Instructions Indication:Current nonsmoker (Renamed from Current non-smoker) Start:22-Feb-2023 Instruction Type:Provider Instructions for Treatment How to Access Health Informa tion Online using Patient Portal and [employer] Apps Indication:Current nonsmoker (Renamed from Current non-smoker) Start:22-Feb-2023 Instruction Type:Patient Education Patient Instructions Indication:Hypercholesteremia Start:08-Feb-2023 Instruction Type:Provider Instructions for Treatment How to Access Health Informa tion Online using Patient Portal and [employer] Indication:Hypercholesteremia Start:08-Feb-2023 Instruction Type:Patient Education Patient Instructions Indication:BMI 35.0-35.9,adult Start:03-Dec-2021 Instruction Type:Provider Instructions for Treatment How to Access Health Informa tion Online using Patient Portal and [employer] Indication:BMI 35.0-35.9,adult Start:03-Dec-2021 Instruction Type:Patient Education Patient Instructions Indication:Current nonsmoker (Renamed from Current non-smoker) Start:17-Nov-2021 Instruction Type:Provider Instructions for Treatment How to Access Health Informa tion Online using Patient Portal and [employer] Apps Indication:Current nonsmoker (Renamed from Current non-smoker) Start:17-Nov-2021 Instruction Type:Patient Education Patient Instructions Indication:BMI 35.0-35.9,adult Start:13-Oct-2021 Instruction Type:Provider Instructions for Treatment How to Access Health Informa tion Online using Patient Portal and [employer] Indication:BMI 35.0-35.9,adult Start:13-Oct-2021 Instruction Type:Patient Education Patient Instructions Indication:Current nonsmoker (Renamed from Current non-smoker) Start:29-Sep-2021 Instruction Type:Provider Instructions for Treatment How to Access Health Informa tion Online using Patient Portal and [employer] Apps Indication:Current nonsmoker (Renamed from Current non-smoker) Start:29-Sep-2021 Instruction Type:Patient Education How to Access Health Informa tion Online using Patient Portal and [employer] Apps Indication:Current nonsmoker (Renamed from Current non-smoker) Start:21-Apr-2021 Instruction Type:Patient Education Patient Instructions Indication:Current nonsmoker (Renamed from Current non-smoker) Start:21-Apr-2021 Instruction Type:Provider Instructions for Treatment How to Access Health Informa tion Online using Patient Portal and [employer] Apps Indication:Current nonsmoker (Renamed from Current non-smoker) Start:19-Mar-2021 Instruction Type:Patient Education Patient Instructions Indication:Current nonsmoker (Renamed from Current non-smoker) Start:19-Mar-2021 Instruction Type:Provider Instructions for Treatment How to Access Health Informa tion Online using Patient Portal and [employer] Apps Indication:Current nonsmoker (Renamed from Current non-smoker) Start:05-Mar-2021 Instruction Type:Patient Education Patient Instructions Indication:Current nonsmoker (Renamed from Current non-smoker) Start:05-Mar-2021 Instruction Type:Provider Instructions for Treatment How to Access Health Informa tion Online using Patient Portal and [employer] Apps Indication:Current nonsmoker (Renamed from Current non-smoker) Start:20-Feb-2021 Instruction Type:Patient Education Patient Instructions Indication:Current nonsmoker (Renamed from Current non-smoker) Start:20-Feb-2021 Instruction Type:Provider Instructions for Treatment Patient Instructions Indication:Current nonsmoker (Renamed from Current non-smoker) Start:10-Feb-2021 Instruction Type:Provider Instructions for Treatment How to Access Health Informa tion Online using Patient Portal and [employer] Apps Indication:Current nonsmoker (Renamed from Current non-smoker) Start:10-Feb-2021 Instruction Type:Patient Education How to Access Health Informa tion Online using Patient Portal and [employer] Apps Indication:Current nonsmoker (Renamed from Current non-smoker) Start:25-Dec-2020 Instruction Type:Patient Education Patient Instructions Indication:Current nonsmoker (Renamed from Current non-smoker) Start:25-Dec-2020 Instruction Type:Provider Instructions for Treatment obesity counseling Indication:Uncontrolled type 2 diabetes mellitus Start:09-Dec-2020 Instruction Type:Provider Instructions for Treatment How to Access Health Informa tion Online using Patient Portal and [employer] Indication:Current nonsmoker (Renamed from Current non-smoker) Start:09-Dec-2020 Instruction Type:Patient Education Patient Instructions Indication:Current nonsmoker (Renamed from Current non-smoker) Start:09-Dec-2020 Instruction Type:Provider Instructions for Treatment How to access health informa tion online Indication:Current nonsmoker (Renamed from Current non-smoker) Start:16-Oct-2020 Instruction Type:Patient Education How to access health informa tion online - Detail Indication:Current nonsmoker (Renamed from Current non-smoker) Start:16-Oct-2020 Instruction Type:Patient Education Patient Instructions Indication:Current nonsmoker (Renamed from Current non-smoker) Start:16-Oct-2020 Instruction Type:Provider Instructions for Treatment How to access health informa tion online Indication:BMI 38.0-38.9,adult Start:15-Dec-2018 Instruction Type:Patient Education How to access health informa tion online - Detail Indication:BMI 38.0-38.9,adult Start:15-Dec-2018 Instruction Type:Patient Education Patient Instructions Indication:BMI 38.0-38.9,adult Start:15-Dec-2018 Instruction Type:Provider Instructions for Treatment Patient Instructions Indication:Encounter for annual general medical examination with abnormal findings in adult Start:09-Sep-2018 Instruction Type:Provider Instructions for Treatment obesity counseling Indication:Uncontrolled type 2 diabetes mellitus Start:09-Sep-2018 Instruction Type:Provider Instructions for Treatment How to access health informa tion online Indication:Dysuria Start:24-Aug-2018 Instruction Type:Patient Education How to access health informa tion online - Detail Indication:Dysuria Start:24-Aug-2018 Instruction Type:Patient Education Patient Instructions Indication:Dysuria Start:24-Aug-2018 Instruction Type:Provider Instructions for Treatment How to access health informa tion online Indication:Uncontrolled type 2 diabetes mellitus Start:05-May-2018 Instruction Type:Patient Education How to access health informa tion online - Detail Indication:Uncontrolled type 2 diabetes mellitus Start:05-May-2018 Instruction Type:Patient Education Patient Instructions Indication:Uncontrolled type 2 diabetes mellitus Start:05-May-2018 Instruction Type:Provider Instructions for Treatment How to access health informa tion online Indication:Diabetes type 2, controlled Start:30-Dec-2017 Instruction Type:Patient Education How to access health informa tion online - Detail Indication:Diabetes type 2, controlled Start:30-Dec-2017 Instruction Type:Patient Education Patient Instructions Indication:Diabetes type 2, controlled Start:30-Dec-2017 Instruction Type:Provider Instructions for Treatment How to access health informa tion online Indication:Low back pain Start:06-Dec-2017 Instruction Type:Patient Education How to access health informa tion online - Detail Indication:Low back pain Start:06-Dec-2017 Instruction Type:Patient Education Patient Instructions Indication:Low back pain Start:06-Dec-2017 Instruction Type:Provider Instructions for Treatment How to access health informa tion online Indication:Lower abdominal pain Start:03-Dec-2017 Instruction Type:Patient Education How to access health informa tion online - Detail Indication:Lower abdominal pain Start:03-Dec-2017 Instruction Type:Patient Education Patient Instructions Indication:Lower abdominal pain Start:03-Dec-2017 Instruction Type:Provider Instructions for Treatment How to access health informa tion online Indication:Diabetes type 2, controlled Start:24-Sep-2017 Instruction Type:Patient Education How to access health informa tion online - Detail Indication:Diabetes type 2, controlled Start:24-Sep-2017 Instruction Type:Patient Education Patient Instructions Indication:Diabetes type 2, controlled Start:24-Sep-2017 Instruction Type:Provider Instructions for Treatment How to access health informa tion online Indication:Diabetes type 2, controlled Start:20-May-2017 Instruction Type:Patient Education How to access health informa tion online - Detail Indication:Diabetes type 2, controlled Start:20-May-2017 Instruction Type:Patient Education Patient Instructions Indication:Diabetes type 2, controlled Start:20-May-2017 Instruction Type:Provider Instructions for Treatment How to access health informa tion online Indication:Current smoker Start:14-Jan-2017 Instruction Type:Patient Education How to access health informa tion online - Detail Indication:Current smoker Start:14-Jan-2017 Instruction Type:Patient Education Patient Instructions Indication:Current smoker Start:14-Jan-2017 Instruction Type:Provider Instructions for Treatment How to access health informa tion online Indication:Current nonsmoker (Renamed from Current non-smoker) Start:11-Jan-2017 Instruction Type:Patient Education How to access health informa tion online - Detail Indication:Current nonsmoker (Renamed from Current non-smoker) Start:11-Jan-2017 Instruction Type:Patient Education Patient Instructions Indication:Current nonsmoker (Renamed from Current non-smoker) Start:11-Jan-2017 Instruction Type:Provider Instructions for Treatment How to access health informa tion online Indication:Hypertension Start:09-Sep-2016 Instruction Type:Patient Education How to access health informa tion online - Detail Indication:Hypertension Start:09-Sep-2016 Instruction Type:Patient Education Patient Instructions Indication:Hypertension Start:09-Sep-2016 Instruction Type:Provider Instructions for Treatment How to access health informa tion online Indication:Hypertension Start:03-Apr-2016 Instruction Type:Patient Education How to access health informa tion online - Detail Indication:Hypertension Start:03-Apr-2016 Instruction Type:Patient Education Patient Instructions Indication:Hypertension Start:03-Apr-2016 Instruction Type:Provider Instructions for Treatment How to access health informa tion online Indication:Leg wound, left Start:08-Oct-2015 Instruction Type:Patient Education How to access health informa tion online - Detail Indication:Leg wound, left Start:08-Oct-2015 Instruction Type:Patient Education Patient Instructions Indication:Leg wound, left Start:08-Oct-2015 Instruction Type:Provider Instructions for Treatment How to access health informa tion online Indication:Hypertension Start:20-Sep-2015 Instruction Type:Patient Education How to access health informa tion online - Detail Indication:Hypertension Start:20-Sep-2015 Instruction Type:Patient Education Patient Instructions Indication:Hypertension Start:20-Sep-2015 Instruction Type:Provider Instructions for Treatment Patient Instructions Indication:Hypertension Start:10-May-2015 Instruction Type:Provider Instructions for Treatment Patient Instructions Indication:Infection Start:28-Aug-2013 Instruction Type:Provider Instructions for Treatment Patient Instructions Indication:Infection Start:25-Aug-2013 Instruction Type:Provider Instructions for Treatment Patient Instructions Indication:Infection Start:24-Aug-2013 Instruction Type:Provider Instructions for Treatment Patient Instructions Indication:Infection Start:23-Aug-2013 Instruction Type:Provider Instructions for Treatment Patient Instructions Indication:Hypertension Start:30-Jun-2013 Instruction Type:Provider Instructions for Treatment Patient Instructions Indication:Arthritis Start:30-Jun-2013 Instruction Type:Provider Instructions for Treatment [facility]; [facility] Work Phone: Instructions* Name Dates Details Patient Instructions Indication:BMI 37.0-37.9, adult Start:01-Apr-2023 Instruction Type:Provider Instructions for Treatment How to Access Health Informa tion Online using Patient Portal and [employer] Indication:BMI 37.0-37.9, adult Start:01-Apr-2023 Instruction Type:Patient Education Patient Instructions Indication:BMI 38.0-38.9,adult Start:15-Mar-2023 Instruction Type:Provider Instructions for Treatment How to Access Health Informa tion Online using Patient Portal and [employer] Apps Indication:BMI 38.0-38.9,adult Start:15-Mar-2023 Instruction Type:Patient Education Patient Instructions Indication:Current nonsmoker (Renamed from Current non-smoker) Start:22-Feb-2023 Instruction Type:Provider Instructions for Treatment How to Access Health Informa tion Online using Patient Portal and [employer] Apps Indication:Current nonsmoker (Renamed from Current non-smoker) Start:22-Feb-2023 Instruction Type:Patient Education Patient Instructions Indication:Hypercholesteremia Start:08-Feb-2023 Instruction Type:Provider Instructions for Treatment How to Access Health Informa tion Online using Patient Portal and [employer] Apps Indication:Hypercholesteremia Start:08-Feb-2023 Instruction Type:Patient Education Patient Instructions Indication:BMI 35.0-35.9,adult Start:03-Dec-2021 Instruction Type:Provider Instructions for Treatment How to Access Health Informa tion Online using Patient Portal and [employer] Apps Indication:BMI 35.0-35.9,adult Start:03-Dec-2021 Instruction Type:Patient Education Patient Instructions Indication:Current nonsmoker (Renamed from Current non-smoker) Start:17-Nov-2021 Instruction Type:Provider Instructions for Treatment How to Access Health Informa tion Online using Patient Portal and [employer] Apps Indication:Current nonsmoker (Renamed from Current non-smoker) Start:17-Nov-2021 Instruction Type:Patient Education Patient Instructions Indication:BMI 35.0-35.9,adult Start:13-Oct-2021 Instruction Type:Provider Instructions for Treatment How to Access Health Informa tion Online using Patient Portal and [employer] Apps Indication:BMI 35.0-35.9,adult Start:13-Oct-2021 Instruction Type:Patient Education Patient Instructions Indication:Current nonsmoker (Renamed from Current non-smoker) Start:29-Sep-2021 Instruction Type:Provider Instructions for Treatment How to Access Health Informa tion Online using Patient Portal and [employer] Apps Indication:Current nonsmoker (Renamed from Current non-smoker) Start:29-Sep-2021 Instruction Type:Patient Education How to Access Health Informa tion Online using Patient Portal and [employer] Apps Indication:Current nonsmoker (Renamed from Current non-smoker) Start:21-Apr-2021 Instruction Type:Patient Education Patient Instructions Indication:Current nonsmoker (Renamed from Current non-smoker) Start:21-Apr-2021 Instruction Type:Provider Instructions for Treatment How to Access Health Informa tion Online using Patient Portal and [employer] Apps Indication:Current nonsmoker (Renamed from Current non-smoker) Start:19-Mar-2021 Instruction Type:Patient Education Patient Instructions Indication:Current nonsmoker (Renamed from Current non-smoker) Start:19-Mar-2021 Instruction Type:Provider Instructions for Treatment How to Access Health Informa tion Online using Patient Portal and [employer] Apps Indication:Current nonsmoker (Renamed from Current non-smoker) Start:05-Mar-2021 Instruction Type:Patient Education Patient Instructions Indication:Current nonsmoker (Renamed from Current non-smoker) Start:05-Mar-2021 Instruction Type:Provider Instructions for Treatment How to Access Health Informa tion Online using Patient Portal and [employer] Apps Indication:Current nonsmoker (Renamed from Current non-smoker) Start:20-Feb-2021 Instruction Type:Patient Education Patient Instructions Indication:Current nonsmoker (Renamed from Current non-smoker) Start:20-Feb-2021 Instruction Type:Provider Instructions for Treatment Patient Instructions Indication:Current nonsmoker (Renamed from Current non-smoker) Start:10-Feb-2021 Instruction Type:Provider Instructions for Treatment How to Access Health Informa tion Online using Patient Portal and [employer] Indication:Current nonsmoker (Renamed from Current non-smoker) Start:10-Feb-2021 Instruction Type:Patient Education How to Access Health Informa tion Online using Patient Portal and [employer] Apps Indication:Current nonsmoker (Renamed from Current non-smoker) Start:25-Dec-2020 Instruction Type:Patient Education Patient Instructions Indication:Current nonsmoker (Renamed from Current non-smoker) Start:25-Dec-2020 Instruction Type:Provider Instructions for Treatment obesity counseling Indication:Uncontrolled type 2 diabetes mellitus Start:09-Dec-2020 Instruction Type:Provider Instructions for Treatment How to Access Health Informa tion Online using Patient Portal and [employer] Apps Indication:Current nonsmoker (Renamed from Current non-smoker) Start:09-Dec-2020 Instruction Type:Patient Education Patient Instructions Indication:Current nonsmoker (Renamed from Current non-smoker) Start:09-Dec-2020 Instruction Type:Provider Instructions for Treatment How to access health informa tion online Indication:Current nonsmoker (Renamed from Current non-smoker) Start:16-Oct-2020 Instruction Type:Patient Education How to access health informa tion online - Detail Indication:Current nonsmoker (Renamed from Current non-smoker) Start:16-Oct-2020 Instruction Type:Patient Education Patient Instructions Indication:Current nonsmoker (Renamed from Current non-smoker) Start:16-Oct-2020 Instruction Type:Provider Instructions for Treatment How to access health informa tion online Indication:BMI 38.0-38.9,adult Start:15-Dec-2018 Instruction Type:Patient Education How to access health informa tion online - Detail Indication:BMI 38.0-38.9,adult Start:15-Dec-2018 Instruction Type:Patient Education Patient Instructions Indication:BMI 38.0-38.9,adult Start:15-Dec-2018 Instruction Type:Provider Instructions for Treatment Patient Instructions Indication:Encounter for annual general medical examination with abnormal findings in adult Start:09-Sep-2018 Instruction Type:Provider Instructions for Treatment obesity counseling Indication:Uncontrolled type 2 diabetes mellitus Start:09-Sep-2018 Instruction Type:Provider Instructions for Treatment How to access health informa tion online Indication:Dysuria Start:24-Aug-2018 Instruction Type:Patient Education How to access health informa tion online - Detail Indication:Dysuria Start:24-Aug-2018 Instruction Type:Patient Education Patient Instructions Indication:Dysuria Start:24-Aug-2018 Instruction Type:Provider Instructions for Treatment How to access health informa tion online Indication:Uncontrolled type 2 diabetes mellitus Start:05-May-2018 Instruction Type:Patient Education How to access health informa tion online - Detail Indication:Uncontrolled type 2 diabetes mellitus Start:05-May-2018 Instruction Type:Patient Education Patient Instructions Indication:Uncontrolled type 2 diabetes mellitus Start:05-May-2018 Instruction Type:Provider Instructions for Treatment How to access health informa tion online Indication:Diabetes type 2, controlled Start:30-Dec-2017 Instruction Type:Patient Education How to access health informa tion online - Detail Indication:Diabetes type 2, controlled Start:30-Dec-2017 Instruction Type:Patient Education Patient Instructions Indication:Diabetes type 2, controlled Start:30-Dec-2017 Instruction Type:Provider Instructions for Treatment How to access health informa tion online Indication:Low back pain Start:06-Dec-2017 Instruction Type:Patient Education How to access health informa tion online - Detail Indication:Low back pain Start:06-Dec-2017 Instruction Type:Patient Education Patient Instructions Indication:Low back pain Start:06-Dec-2017 Instruction Type:Provider Instructions for Treatment How to access health informa tion online Indication:Lower abdominal pain Start:03-Dec-2017 Instruction Type:Patient Education How to access health informa tion online - Detail Indication:Lower abdominal pain Start:03-Dec-2017 Instruction Type:Patient Education Patient Instructions Indication:Lower abdominal pain Start:03-Dec-2017 Instruction Type:Provider Instructions for Treatment How to access health informa tion online Indication:Diabetes type 2, controlled Start:24-Sep-2017 Instruction Type:Patient Education How to access health informa tion online - Detail Indication:Diabetes type 2, controlled Start:24-Sep-2017 Instruction Type:Patient Education Patient Instructions Indication:Diabetes type 2, controlled Start:24-Sep-2017 Instruction Type:Provider Instructions for Treatment How to access health informa tion online Indication:Diabetes type 2, controlled Start:20-May-2017 Instruction Type:Patient Education How to access health informa tion online - Detail Indication:Diabetes type 2, controlled Start:20-May-2017 Instruction Type:Patient Education Patient Instructions Indication:Diabetes type 2, controlled Start:20-May-2017 Instruction Type:Provider Instructions for Treatment How to access health informa tion online Indication:Current smoker Start:14-Jan-2017 Instruction Type:Patient Education How to access health informa tion online - Detail Indication:Current smoker Start:14-Jan-2017 Instruction Type:Patient Education Patient Instructions Indication:Current smoker Start:14-Jan-2017 Instruction Type:Provider Instructions for Treatment How to access health informa tion online Indication:Current nonsmoker (Renamed from Current non-smoker) Start:11-Jan-2017 Instruction Type:Patient Education How to access health informa tion online - Detail Indication:Current nonsmoker (Renamed from Current non-smoker) Start:11-Jan-2017 Instruction Type:Patient Education Patient Instructions Indication:Current nonsmoker (Renamed from Current non-smoker) Start:11-Jan-2017 Instruction Type:Provider Instructions for Treatment How to access health informa tion online Indication:Hypertension Start:09-Sep-2016 Instruction Type:Patient Education How to access health informa tion online - Detail Indication:Hypertension Start:09-Sep-2016 Instruction Type:Patient Education Patient Instructions Indication:Hypertension Start:09-Sep-2016 Instruction Type:Provider Instructions for Treatment How to access health informa tion online Indication:Hypertension Start:03-Apr-2016 Instruction Type:Patient Education How to access health informa tion online - Detail Indication:Hypertension Start:03-Apr-2016 Instruction Type:Patient Education Patient Instructions Indication:Hypertension Start:03-Apr-2016 Instruction Type:Provider Instructions for Treatment How to access health informa tion online Indication:Leg wound, left Start:08-Oct-2015 Instruction Type:Patient Education How to access health informa tion online - Detail Indication:Leg wound, left Start:08-Oct-2015 Instruction Type:Patient Education Patient Instructions Indication:Leg wound, left Start:08-Oct-2015 Instruction Type:Provider Instructions for Treatment How to access health informa tion online Indication:Hypertension Start:20-Sep-2015 Instruction Type:Patient Education How to access health informa tion online - Detail Indication:Hypertension Start:20-Sep-2015 Instruction Type:Patient Education Patient Instructions Indication:Hypertension Start:20-Sep-2015 Instruction Type:Provider Instructions for Treatment Patient Instructions Indication:Hypertension Start:10-May-2015 Instruction Type:Provider Instructions for Treatment Patient Instructions Indication:Infection Start:28-Aug-2013 Instruction Type:Provider Instructions for Treatment Patient Instructions Indication:Infection Start:25-Aug-2013 Instruction Type:Provider Instructions for Treatment Patient Instructions Indication:Infection Start:24-Aug-2013 Instruction Type:Provider Instructions for Treatment Patient Instructions Indication:Infection Start:23-Aug-2013 Instruction Type:Provider Instructions for Treatment Patient Instructions Indication:Hypertension Start:30-Jun-2013 Instruction Type:Provider Instructions for Treatment Patient Instructions Indication:Arthritis Start:30-Jun-2013 Instruction Type:Provider Instructions for Treatment [facility]; [facility] Work Phone: Instructions* Name Dates Details Patient Instructions Indication:Current nonsmoker (Renamed from Current non-smoker) Start:30-Jul-2023 Instruction Type:Provider Instructions for Treatment How to Access Health Informa tion Online using Patient Portal and [employer] Indication:Current nonsmoker (Renamed from Current non-smoker) Start:30-Jul-2023 Instruction Type:Patient Education Patient Instructions Indication:BMI 37.0-37.9, adult Start:01-Apr-2023 Instruction Type:Provider Instructions for Treatment How to Access Health Informa tion Online using Patient Portal and [employer] Indication:BMI 37.0-37.9, adult Start:01-Apr-2023 Instruction Type:Patient Education Patient Instructions Indication:BMI 38.0-38.9,adult Start:15-Mar-2023 Instruction Type:Provider Instructions for Treatment How to Access Health Informa tion Online using Patient Portal and [employer] Indication:BMI 38.0-38.9,adult Start:15-Mar-2023 Instruction Type:Patient Education Patient Instructions Indication:Current nonsmoker (Renamed from Current non-smoker) Start:22-Feb-2023 Instruction Type:Provider Instructions for Treatment How to Access Health Informa tion Online using Patient Portal and [employer] Indication:Current nonsmoker (Renamed from Current non-smoker) Start:22-Feb-2023 Instruction Type:Patient Education Patient Instructions Indication:Hypercholesteremia Start:08-Feb-2023 Instruction Type:Provider Instructions for Treatment How to Access Health Informa tion Online using Patient Portal and [employer] Indication:Hypercholesteremia Start:08-Feb-2023 Instruction Type:Patient Education Patient Instructions Indication:BMI 35.0-35.9,adult Start:03-Dec-2021 Instruction Type:Provider Instructions for Treatment How to Access Health Informa tion Online using Patient Portal and [employer] Indication:BMI 35.0-35.9,adult Start:03-Dec-2021 Instruction Type:Patient Education Patient Instructions Indication:Current nonsmoker (Renamed from Current non-smoker) Start:17-Nov-2021 Instruction Type:Provider Instructions for Treatment How to Access Health Informa tion Online using Patient Portal and [employer] Indication:Current nonsmoker (Renamed from Current non-smoker) Start:17-Nov-2021 Instruction Type:Patient Education Patient Instructions Indication:BMI 35.0-35.9,adult Start:13-Oct-2021 Instruction Type:Provider Instructions for Treatment How to Access Health Informa tion Online using Patient Portal and [employer] Indication:BMI 35.0-35.9,adult Start:13-Oct-2021 Instruction Type:Patient Education Patient Instructions Indication:Current nonsmoker (Renamed from Current non-smoker) Start:29-Sep-2021 Instruction Type:Provider Instructions for Treatment How to Access Health Informa tion Online using Patient Portal and [employer] Apps Indication:Current nonsmoker (Renamed from Current non-smoker) Start:29-Sep-2021 Instruction Type:Patient Education How to Access Health Informa tion Online using Patient Portal and [employer] Apps Indication:Current nonsmoker (Renamed from Current non-smoker) Start:21-Apr-2021 Instruction Type:Patient Education Patient Instructions Indication:Current nonsmoker (Renamed from Current non-smoker) Start:21-Apr-2021 Instruction Type:Provider Instructions for Treatment How to Access Health Informa tion Online using Patient Portal and [employer] Apps Indication:Current nonsmoker (Renamed from Current non-smoker) Start:19-Mar-2021 Instruction Type:Patient Education Patient Instructions Indication:Current nonsmoker (Renamed from Current non-smoker) Start:19-Mar-2021 Instruction Type:Provider Instructions for Treatment How to Access Health Informa tion Online using Patient Portal and [employer] Indication:Current nonsmoker (Renamed from Current non-smoker) Start:05-Mar-2021 Instruction Type:Patient Education Patient Instructions Indication:Current nonsmoker (Renamed from Current non-smoker) Start:05-Mar-2021 Instruction Type:Provider Instructions for Treatment How to Access Health Informa tion Online using Patient Portal and [employer] Indication:Current nonsmoker (Renamed from Current non-smoker) Start:20-Feb-2021 Instruction Type:Patient Education Patient Instructions Indication:Current nonsmoker (Renamed from Current non-smoker) Start:20-Feb-2021 Instruction Type:Provider Instructions for Treatment Patient Instructions Indication:Current nonsmoker (Renamed from Current non-smoker) Start:10-Feb-2021 Instruction Type:Provider Instructions for Treatment How to Access Health Informa tion Online using Patient Portal and [employer] Indication:Current nonsmoker (Renamed from Current non-smoker) Start:10-Feb-2021 Instruction Type:Patient Education How to Access Health Informa tion Online using Patient Portal and [employer] Apps Indication:Current nonsmoker (Renamed from Current non-smoker) Start:25-Dec-2020 Instruction Type:Patient Education Patient Instructions Indication:Current nonsmoker (Renamed from Current non-smoker) Start:25-Dec-2020 Instruction Type:Provider Instructions for Treatment obesity counseling Indication:Uncontrolled type 2 diabetes mellitus Start:09-Dec-2020 Instruction Type:Provider Instructions for Treatment How to Access Health Informa tion Online using Patient Portal and [employer] Apps Indication:Current nonsmoker (Renamed from Current non-smoker) Start:09-Dec-2020 Instruction Type:Patient Education Patient Instructions Indication:Current nonsmoker (Renamed from Current non-smoker) Start:09-Dec-2020 Instruction Type:Provider Instructions for Treatment How to access health informa tion online Indication:Current nonsmoker (Renamed from Current non-smoker) Start:16-Oct-2020 Instruction Type:Patient Education How to access health informa tion online - Detail Indication:Current nonsmoker (Renamed from Current non-smoker) Start:16-Oct-2020 Instruction Type:Patient Education Patient Instructions Indication:Current nonsmoker (Renamed from Current non-smoker) Start:16-Oct-2020 Instruction Type:Provider Instructions for Treatment How to access health informa tion online Indication:BMI 38.0-38.9,adult Start:15-Dec-2018 Instruction Type:Patient Education How to access health informa tion online - Detail Indication:BMI 38.0-38.9,adult Start:15-Dec-2018 Instruction Type:Patient Education Patient Instructions Indication:BMI 38.0-38.9,adult Start:15-Dec-2018 Instruction Type:Provider Instructions for Treatment Patient Instructions Indication:Encounter for annual general medical examination with abnormal findings in adult Start:09-Sep-2018 Instruction Type:Provider Instructions for Treatment obesity counseling Indication:Uncontrolled type 2 diabetes mellitus Start:09-Sep-2018 Instruction Type:Provider Instructions for Treatment How to access health informa tion online Indication:Dysuria Start:24-Aug-2018 Instruction Type:Patient Education How to access health informa tion online - Detail Indication:Dysuria Start:24-Aug-2018 Instruction Type:Patient Education Patient Instructions Indication:Dysuria Start:24-Aug-2018 Instruction Type:Provider Instructions for Treatment How to access health informa tion online Indication:Uncontrolled type 2 diabetes mellitus Start:05-May-2018 Instruction Type:Patient Education How to access health informa tion online - Detail Indication:Uncontrolled type 2 diabetes mellitus Start:05-May-2018 Instruction Type:Patient Education Patient Instructions Indication:Uncontrolled type 2 diabetes mellitus Start:05-May-2018 Instruction Type:Provider Instructions for Treatment How to access health informa tion online Indication:Diabetes type 2, controlled Start:30-Dec-2017 Instruction Type:Patient Education How to access health informa tion online - Detail Indication:Diabetes type 2, controlled Start:30-Dec-2017 Instruction Type:Patient Education Patient Instructions Indication:Diabetes type 2, controlled Start:30-Dec-2017 Instruction Type:Provider Instructions for Treatment How to access health informa tion online Indication:Low back pain Start:06-Dec-2017 Instruction Type:Patient Education How to access health informa tion online - Detail Indication:Low back pain Start:06-Dec-2017 Instruction Type:Patient Education Patient Instructions Indication:Low back pain Start:06-Dec-2017 Instruction Type:Provider Instructions for Treatment How to access health informa tion online Indication:Lower abdominal pain Start:03-Dec-2017 Instruction Type:Patient Education How to access health informa tion online - Detail Indication:Lower abdominal pain Start:03-Dec-2017 Instruction Type:Patient Education Patient Instructions Indication:Lower abdominal pain Start:03-Dec-2017 Instruction Type:Provider Instructions for Treatment How to access health informa tion online Indication:Diabetes type 2, controlled Start:24-Sep-2017 Instruction Type:Patient Education How to access health informa tion online - Detail Indication:Diabetes type 2, controlled Start:24-Sep-2017 Instruction Type:Patient Education Patient Instructions Indication:Diabetes type 2, controlled Start:24-Sep-2017 Instruction Type:Provider Instructions for Treatment How to access health informa tion online Indication:Diabetes type 2, controlled Start:20-May-2017 Instruction Type:Patient Education How to access health informa tion online - Detail Indication:Diabetes type 2, controlled Start:20-May-2017 Instruction Type:Patient Education Patient Instructions Indication:Diabetes type 2, controlled Start:20-May-2017 Instruction Type:Provider Instructions for Treatment How to access health informa tion online Indication:Current smoker Start:14-Jan-2017 Instruction Type:Patient Education How to access health informa tion online - Detail Indication:Current smoker Start:14-Jan-2017 Instruction Type:Patient Education Patient Instructions Indication:Current smoker Start:14-Jan-2017 Instruction Type:Provider Instructions for Treatment How to access health informa tion online Indication:Current nonsmoker (Renamed from Current non-smoker) Start:11-Jan-2017 Instruction Type:Patient Education How to access health informa tion online - Detail Indication:Current nonsmoker (Renamed from Current non-smoker) Start:11-Jan-2017 Instruction Type:Patient Education Patient Instructions Indication:Current nonsmoker (Renamed from Current non-smoker) Start:11-Jan-2017 Instruction Type:Provider Instructions for Treatment How to access health informa tion online Indication:Hypertension Start:09-Sep-2016 Instruction Type:Patient Education How to access health informa tion online - Detail Indication:Hypertension Start:09-Sep-2016 Instruction Type:Patient Education Patient Instructions Indication:Hypertension Start:09-Sep-2016 Instruction Type:Provider Instructions for Treatment How to access health informa tion online Indication:Hypertension Start:03-Apr-2016 Instruction Type:Patient Education How to access health informa tion online - Detail Indication:Hypertension Start:03-Apr-2016 Instruction Type:Patient Education Patient Instructions Indication:Hypertension Start:03-Apr-2016 Instruction Type:Provider Instructions for Treatment How to access health informa tion online Indication:Leg wound, left Start:08-Oct-2015 Instruction Type:Patient Education How to access health informa tion online - Detail Indication:Leg wound, left Start:08-Oct-2015 Instruction Type:Patient Education Patient Instructions Indication:Leg wound, left Start:08-Oct-2015 Instruction Type:Provider Instructions for Treatment How to access health informa tion online Indication:Hypertension Start:20-Sep-2015 Instruction Type:Patient Education How to access health informa tion online - Detail Indication:Hypertension Start:20-Sep-2015 Instruction Type:Patient Education Patient Instructions Indication:Hypertension Start:20-Sep-2015 Instruction Type:Provider Instructions for Treatment Patient Instructions Indication:Hypertension Start:10-May-2015 Instruction Type:Provider Instructions for Treatment Patient Instructions Indication:Infection Start:28-Aug-2013 Instruction Type:Provider Instructions for Treatment Patient Instructions Indication:Infection Start:25-Aug-2013 Instruction Type:Provider Instructions for Treatment Patient Instructions Indication:Infection Start:24-Aug-2013 Instruction Type:Provider Instructions for Treatment Patient Instructions Indication:Infection Start:23-Aug-2013 Instruction Type:Provider Instructions for Treatment Patient Instructions Indication:Hypertension Start:30-Jun-2013 Instruction Type:Provider Instructions for Treatment Patient Instructions Indication:Arthritis Start:30-Jun-2013 Instruction Type:Provider Instructions for Treatment [facility]; [facility] Work Phone: Family History No Family History Records FoundUnknown Family Member Name Dates Details ABUSED PERSON, NOS(995.81) Comments:Sexual - herself Status:Active Breast Cancer Comments:Mother Status:Active Diabetes Mellitus Comments:Father, Sister Status:Active Heart Disease Comments:Father Status:Active Hypertension Comments:Father, Brother, Si ster Status:Active Unknown Family Member Name Dates Details ABUSED PERSON, NOS(995.81) Comments:Sexual - herself Status:Active Breast Cancer Comments:Mother Status:Active Diabetes Mellitus Comments:Father, Sister Status:Active Heart Disease Comments:Father Status:Active Hypertension Comments:Father, Brother, Si ster Status:Active Unknown Family Member Name Dates Details ABUSED PERSON, NOS(995.81) Comments:Sexual - herself Status:Active Breast Cancer Comments:Mother Status:Active Diabetes Mellitus Comments:Father, Sister Status:Active Heart Disease Comments:Father Status:Active Hypertension Comments:Father, Brother, Si ster Status:Active Unknown Family Member Name Dates Details ABUSED PERSON, NOS(995.81) Comments:Sexual - herself Status:Active Breast Cancer Comments:Mother Status:Active Diabetes Mellitus Comments:Father, Sister Status:Active Heart Disease Comments:Father Status:Active Hypertension Comments:Father, Brother, Si ster Status:Active Unknown Family Member Name Dates Details ABUSED PERSON, NOS(995.81) Comments:Sexual - herself Status:Active Breast Cancer Comments:Mother Status:Active Diabetes Mellitus Comments:Father, Sister Status:Active Heart Disease Comments:Father Status:Active Hypertension Comments:Father, Brother, Si ster Status:Active Unknown Family Member Name Dates Details ABUSED PERSON, NOS(995.81) Comments:Sexual - herself Status:Active Breast Cancer Comments:Mother Status:Active Diabetes Mellitus Comments:Father, Sister Status:Active Heart Disease Comments:Father Status:Active Hypertension Comments:Father, Brother, Si ster Status:Active Unknown Family Member Name Dates Details ABUSED PERSON, NOS(995.81) Comments:Sexual - herself Status:Active Breast Cancer Comments:Mother Status:Active Diabetes Mellitus Comments:Father, Sister Status:Active Heart Disease Comments:Father Status:Active Hypertension Comments:Father, Brother, Si ster Status:Active Unknown Family Member Name Dates Details ABUSED PERSON, NOS(995.81) Comments:Sexual - herself Status:Active Breast Cancer Comments:Mother Status:Active Diabetes Mellitus Comments:Father, Sister Status:Active Heart Disease Comments:Father Status:Active Hypertension Comments:Father, Brother, Si ster Status:Active Unknown Family Member Name Dates Details ABUSED PERSON, NOS(995.81) Comments:Sexual - herself Status:Active Breast Cancer Comments:Mother Status:Active Diabetes Mellitus Comments:Father, Sister Status:Active Heart Disease Comments:Father Status:Active Hypertension Comments:Father, Brother, Si ster Status:Active Unknown Family Member Name Dates Details ABUSED PERSON, NOS(995.81) Comments:Sexual - herself Status:Active Breast Cancer Comments:Mother Status:Active Diabetes Mellitus Comments:Father, Sister Status:Active Heart Disease Comments:Father Status:Active Hypertension Comments:Father, Brother, Si ster Status:Active Unknown Family Member Name Dates Details ABUSED PERSON, NOS(995.81) Comments:Sexual - herself Status:Active Breast Cancer Comments:Mother Status:Active Diabetes Mellitus Comments:Father, Sister Status:Active Heart Disease Comments:Father Status:Active Hypertension Comments:Father, Brother, Si ster Status:Active Unknown Family Member Name Dates Details ABUSED PERSON, NOS(995.81) Comments:Sexual - herself Status:Active Breast Cancer Comments:Mother Status:Active Diabetes Mellitus Comments:Father, Sister Status:Active Heart Disease Comments:Father Status:Active Hypertension Comments:Father, Brother, Si ster Status:Active Unknown Family Member Name Dates Details ABUSED PERSON, NOS(995.81) Comments:Sexual - herself Status:Active Breast Cancer Comments:Mother Status:Active Diabetes Mellitus Comments:Father, Sister Status:Active Heart Disease Comments:Father Status:Active Hypertension Comments:Father, Brother, Si ster Status:Active Unknown Family Member Name Dates Details ABUSED PERSON, NOS(995.81) Comments:Sexual - herself Status:Active Breast Cancer Comments:Mother Status:Active Diabetes Mellitus Comments:Father, Sister Status:Active Heart Disease Comments:Father Status:Active Hypertension Comments:Father, Brother, Si ster Status:Active Unknown Family Member Name Dates Details ABUSED PERSON, NOS(995.81) Comments:Sexual - herself Status:Active Breast Cancer Comments:Mother Status:Active Diabetes Mellitus Comments:Father, Sister Status:Active Heart Disease Comments:Father Status:Active Hypertension Comments:Father, Brother, Si ster Status:Active Unknown Family Member Name Dates Details ABUSED PERSON, NOS(995.81) Comments:Sexual - herself Status:Active Breast Cancer Comments:Mother Status:Active Diabetes Mellitus Comments:Father, Sister Status:Active Heart Disease Comments:Father Status:Active Hypertension Comments:Father, Brother, Si ster Status:Active Unknown Family Member Name Dates Details ABUSED PERSON, NOS(995.81) Comments:Sexual - herself Status:Active Breast Cancer Comments:Mother Status:Active Diabetes Mellitus Comments:Father, Sister Status:Active Heart Disease Comments:Father Status:Active Hypertension Comments:Father, Brother, Si ster Status:Active Unknown Family Member Name Dates Details ABUSED PERSON, NOS(995.81) Comments:Sexual - herself Status:Active Breast Cancer Comments:Mother Status:Active Diabetes Mellitus Comments:Father, Sister Status:Active Heart Disease Comments:Father Status:Active Hypertension Comments:Father, Brother, Si ster Status:Active Unknown Family Member Name Dates Details ABUSED PERSON, NOS(995.81) Comments:Sexual - herself Status:Active Breast Cancer Comments:Mother Status:Active Diabetes Mellitus Comments:Father, Sister Status:Active Heart Disease Comments:Father Status:Active Hypertension Comments:Father, Brother, Si ster Status:Active Unknown Family Member Name Dates Details ABUSED PERSON, NOS(995.81) Comments:Sexual - herself Status:Active Breast Cancer Comments:Mother Status:Active Diabetes Mellitus Comments:Father, Sister Status:Active Heart Disease Comments:Father Status:Active Hypertension Comments:Father, Brother, Si ster Status:Active Unknown Family Member Name Dates Details ABUSED PERSON, NOS(995.81) Comments:Sexual - herself Status:Active Breast Cancer Comments:Mother Status:Active Diabetes Mellitus Comments:Father, Sister Status:Active Heart Disease Comments:Father Status:Active Hypertension Comments:Father, Brother, Si ster Status:Active Unknown Family Member Name Dates Details ABUSED PERSON, NOS(995.81) Comments:Sexual - herself Status:Active Breast Cancer Comments:Mother Status:Active Diabetes Mellitus Comments:Father, Sister Status:Active Heart Disease Comments:Father Status:Active Hypertension Comments:Father, Brother, Si ster Status:Active Unknown Family Member Name Dates Details ABUSED PERSON, NOS(995.81) Comments:Sexual - herself Status:Active Breast Cancer Comments:Mother Status:Active Diabetes Mellitus Comments:Father, Sister Status:Active Heart Disease Comments:Father Status:Active Hypertension Comments:Father, Brother, Si ster Status:Active Unknown Family Member Name Dates Details ABUSED PERSON, NOS(995.81) Comments:Sexual - herself Status:Active Breast Cancer Comments:Mother Status:Active Diabetes Mellitus Comments:Father, Sister Status:Active Heart Disease Comments:Father Status:Active Hypertension Comments:Father, Brother, Si ster Status:Active Unknown Family Member Name Dates Details ABUSED PERSON, NOS(995.81) Comments:Sexual - herself Status:Active Breast Cancer Comments:Mother Status:Active Diabetes Mellitus Comments:Father, Sister Status:Active Heart Disease Comments:Father Status:Active Hypertension Comments:Father, Brother, Si ster Status:Active Unknown Family Member Name Dates Details ABUSED PERSON, NOS(995.81) Comments:Sexual - herself Status:Active Breast Cancer Comments:Mother Status:Active Diabetes Mellitus Comments:Father, Sister Status:Active Heart Disease Comments:Father Status:Active Hypertension Comments:Father, Brother, Si ster Status:Active Unknown Family Member Name Dates Details ABUSED PERSON, NOS(995.81) Comments:Sexual - herself Status:Active Breast Cancer Comments:Mother Status:Active Diabetes Mellitus Comments:Father, Sister Status:Active Heart Disease Comments:Father Status:Active Hypertension Comments:Father, Brother, Si ster Status:Active Unknown Family Member Name Dates Details ABUSED PERSON, NOS(995.81) Comments:Sexual - herself Status:Active Breast Cancer Comments:Mother Status:Active Diabetes Mellitus Comments:Father, Sister Status:Active Heart Disease Comments:Father Status:Active Hypertension Comments:Father, Brother, Si ster Status:Active Unknown Family Member Name Dates Details ABUSED PERSON, NOS(995.81) Comments:Sexual - herself Status:Active Breast Cancer Comments:Mother Status:Active Diabetes Mellitus Comments:Father, Sister Status:Active Heart Disease Comments:Father Status:Active Hypertension Comments:Father, Brother, Si ster Status:Active Unknown Family Member Name Dates Details ABUSED PERSON, NOS(995.81) Comments:Sexual - herself Status:Active Breast Cancer Comments:Mother Status:Active Diabetes Mellitus Comments:Father, Sister Status:Active Heart Disease Comments:Father Status:Active Hypertension Comments:Father, Brother, Si ster Status:Active Unknown Family Member Name Dates Details ABUSED PERSON, NOS(995.81) Comments:Sexual - herself Status:Active Breast Cancer Comments:Mother Status:Active Diabetes Mellitus Comments:Father, Sister Status:Active Heart Disease Comments:Father Status:Active Hypertension Comments:Father, Brother, Si ster Status:Active Unknown Family Member Name Dates Details ABUSED PERSON, NOS(995.81) Comments:Sexual - herself Status:Active Breast Cancer Comments:Mother Status:Active Diabetes Mellitus Comments:Father, Sister Status:Active Heart Disease Comments:Father Status:Active Hypertension Comments:Father, Brother, Si ster Status:Active Unknown Family Member Name Dates Details ABUSED PERSON, NOS(995.81) Comments:Sexual - herself Status:Active Breast Cancer Comments:Mother Status:Active Diabetes Mellitus Comments:Father, Sister Status:Active Heart Disease Comments:Father Status:Active Hypertension Comments:Father, Brother, Si ster Status:Active Unknown Family Member Name Dates Details ABUSED PERSON, NOS(995.81) Comments:Sexual - herself Status:Active Breast Cancer Comments:Mother Status:Active Diabetes Mellitus Comments:Father, Sister Status:Active Heart Disease Comments:Father Status:Active Hypertension Comments:Father, Brother, Si ster Status:Active Instructions Name Dates Details Encounter for annual general medical examination with abnormal findings in adult : Patient Instructions Indication:Encounter for annual general medical examination with abnormal findings in adult Uncontrolled type 2 diabetes mellitus : obesity counseling Indication:Uncontrolled type 2 diabetes mellitus Dysuria : How to access heal th information online Indication:Dysuria Dysuria : How to access heal th information online - Detail Indication:Dysuria Dysuria : Patient Instructio ns Indication:Dysuria Uncontrolled type 2 diabetes mellitus : How to access health information online Indication:Uncontrolled type 2 diabetes mellitus Uncontrolled type 2 diabetes mellitus : How to access health information online - Detail Indication:Uncontrolled type 2 diabetes mellitus Uncontrolled type 2 diabetes mellitus : Patient Instructions Indication:Uncontrolled type 2 diabetes mellitus Diabetes type 2, controlled : How to access health information online Indication:Diabetes type 2, controlled Diabetes type 2, controlled : How to access health information online - Detail Indication:Diabetes type 2, controlled Diabetes type 2, controlled : Patient Instructions Indication:Diabetes type 2, controlled Low back pain : How to acces s health information online Indication:Low back pain Low back pain : How to acces s health information online - Detail Indication:Low back pain Low back pain : Patient Inst ructions Indication:Low back pain Lower abdominal pain : How t o access health information online Indication:Lower abdominal pain Lower abdominal pain : How t o access health information online - Detail Indication:Lower abdominal pain Lower abdominal pain : Patie nt Instructions Indication:Lower abdominal pain Current smoker : How to acce ss health information online Indication:Current smoker Current smoker : How to acce ss health information online - Detail Indication:Current smoker Current smoker : Patient Ins tructions Indication:Current smoker Current nonsmoker (Renamed f rom Current non-smoker) : How to access health information online Indication:Current nonsmoker (Renamed from Current non-smoker) Current nonsmoker (Renamed f rom Current non-smoker) : How to access health information online - Detail Indication:Current nonsmoker (Renamed from Current non-smoker) Current nonsmoker (Renamed f rom Current non-smoker) : Patient Instructions Indication:Current nonsmoker (Renamed from Current non-smoker) Hypertension : How to access health information online Indication:Hypertension Hypertension : How to access health information online - Detail Indication:Hypertension Hypertension : Patient Instr uctions Indication:Hypertension Leg wound, left : How to acc ess health information online Indication:Leg wound, left Leg wound, left : How to acc ess health information online - Detail Indication:Leg wound, left Leg wound, left : Patient In structions Indication:Leg wound, left Infection : Patient Instruct ions Indication:Infection Arthritis : Patient Instruct ions Indication:Arthritis Name Dates Details Encounter for annual general medical examination with abnormal findings in adult : Patient Instructions Indication:Encounter for annual general medical examination with abnormal findings in adult Uncontrolled type 2 diabetes mellitus : obesity counseling Indication:Uncontrolled type 2 diabetes mellitus Dysuria : How to access heal th information online Indication:Dysuria Dysuria : How to access heal th information online - Detail Indication:Dysuria Dysuria : Patient Instructio ns Indication:Dysuria Uncontrolled type 2 diabetes mellitus : How to access health information online Indication:Uncontrolled type 2 diabetes mellitus Uncontrolled type 2 diabetes mellitus : How to access health information online - Detail Indication:Uncontrolled type 2 diabetes mellitus Uncontrolled type 2 diabetes mellitus : Patient Instructions Indication:Uncontrolled type 2 diabetes mellitus Diabetes type 2, controlled : How to access health information online Indication:Diabetes type 2, controlled Diabetes type 2, controlled : How to access health information online - Detail Indication:Diabetes type 2, controlled Diabetes type 2, controlled : Patient Instructions Indication:Diabetes type 2, controlled Low back pain : How to acces s health information online Indication:Low back pain Low back pain : How to acces s health information online - Detail Indication:Low back pain Low back pain : Patient Inst ructions Indication:Low back pain Lower abdominal pain : How t o access health information online Indication:Lower abdominal pain Lower abdominal pain : How t o access health information online - Detail Indication:Lower abdominal pain Lower abdominal pain : Patie nt Instructions Indication:Lower abdominal pain Current smoker : How to acce ss health information online Indication:Current smoker Current smoker : How to acce ss health information online - Detail Indication:Current smoker Current smoker : Patient Ins tructions Indication:Current smoker Current nonsmoker (Renamed f rom Current non-smoker) : How to access health information online Indication:Current nonsmoker (Renamed from Current non-smoker) Current nonsmoker (Renamed f rom Current non-smoker) : How to access health information online - Detail Indication:Current nonsmoker (Renamed from Current non-smoker) Current nonsmoker (Renamed f rom Current non-smoker) : Patient Instructions Indication:Current nonsmoker (Renamed from Current non-smoker) Hypertension : How to access health information online Indication:Hypertension Hypertension : How to access health information online - Detail Indication:Hypertension Hypertension : Patient Instr uctions Indication:Hypertension Leg wound, left : How to acc ess health information online Indication:Leg wound, left Leg wound, left : How to acc ess health information online - Detail Indication:Leg wound, left Leg wound, left : Patient In structions Indication:Leg wound, left Infection : Patient Instruct ions Indication:Infection Arthritis : Patient Instruct ions Indication:Arthritis Name Dates Details BMI 38.0-38.9,adult : How to access health information online Indication:BMI 38.0-38.9,adult BMI 38.0-38.9,adult : How to access health information online - Detail Indication:BMI 38.0-38.9,adult BMI 38.0-38.9,adult : Patien t Instructions Indication:BMI 38.0-38.9,adult Encounter for annual general medical examination with abnormal findings in adult : Patient Instructions Indication:Encounter for annual general medical examination with abnormal findings in adult Uncontrolled type 2 diabetes mellitus : obesity counseling Indication:Uncontrolled type 2 diabetes mellitus Dysuria : How to access heal th information online Indication:Dysuria Dysuria : How to access heal th information online - Detail Indication:Dysuria Dysuria : Patient Instructio ns Indication:Dysuria Uncontrolled type 2 diabetes mellitus : How to access health information online Indication:Uncontrolled type 2 diabetes mellitus Uncontrolled type 2 diabetes mellitus : How to access health information online - Detail Indication:Uncontrolled type 2 diabetes mellitus Uncontrolled type 2 diabetes mellitus : Patient Instructions Indication:Uncontrolled type 2 diabetes mellitus Diabetes type 2, controlled : How to access health information online Indication:Diabetes type 2, controlled Diabetes type 2, controlled : How to access health information online - Detail Indication:Diabetes type 2, controlled Diabetes type 2, controlled : Patient Instructions Indication:Diabetes type 2, controlled Low back pain : How to acces s health information online Indication:Low back pain Low back pain : How to acces s health information online - Detail Indication:Low back pain Low back pain : Patient Inst ructions Indication:Low back pain Lower abdominal pain : How t o access health information online Indication:Lower abdominal pain Lower abdominal pain : How t o access health information online - Detail Indication:Lower abdominal pain Lower abdominal pain : Patie nt Instructions Indication:Lower abdominal pain Current smoker : How to acce ss health information online Indication:Current smoker Current smoker : How to acce ss health information online - Detail Indication:Current smoker Current smoker : Patient Ins tructions Indication:Current smoker Current nonsmoker (Renamed f rom Current non-smoker) : How to access health information online Indication:Current nonsmoker (Renamed from Current non-smoker) Current nonsmoker (Renamed f rom Current non-smoker) : How to access health information online - Detail Indication:Current nonsmoker (Renamed from Current non-smoker) Current nonsmoker (Renamed f rom Current non-smoker) : Patient Instructions Indication:Current nonsmoker (Renamed from Current non-smoker) Hypertension : How to access health information online Indication:Hypertension Hypertension : How to access health information online - Detail Indication:Hypertension Hypertension : Patient Instr uctions Indication:Hypertension Leg wound, left : How to acc ess health information online Indication:Leg wound, left Leg wound, left : How to acc ess health information online - Detail Indication:Leg wound, left Leg wound, left : Patient In structions Indication:Leg wound, left Infection : Patient Instruct ions Indication:Infection Arthritis : Patient Instruct ions Indication:Arthritis Name Dates Details How to access health informa tion online Indication:BMI 38.0-38.9,adult Start:15-Dec-2018 Instruction Type:Patient Education How to access health informa tion online - Detail Indication:BMI 38.0-38.9,adult Start:15-Dec-2018 Instruction Type:Patient Education Patient Instructions Indication:BMI 38.0-38.9,adult Start:15-Dec-2018 Instruction Type:Provider Instructions for Treatment Patient Instructions Indication:Encounter for annual general medical examination with abnormal findings in adult Start:09-Sep-2018 Instruction Type:Provider Instructions for Treatment obesity counseling Indication:Uncontrolled type 2 diabetes mellitus Start:09-Sep-2018 Instruction Type:Provider Instructions for Treatment How to access health informa tion online Indication:Dysuria Start:24-Aug-2018 Instruction Type:Patient Education How to access health informa tion online - Detail Indication:Dysuria Start:24-Aug-2018 Instruction Type:Patient Education Patient Instructions Indication:Dysuria Start:24-Aug-2018 Instruction Type:Provider Instructions for Treatment How to access health informa tion online Indication:Uncontrolled type 2 diabetes mellitus Start:05-May-2018 Instruction Type:Patient Education How to access health informa tion online - Detail Indication:Uncontrolled type 2 diabetes mellitus Start:05-May-2018 Instruction Type:Patient Education Patient Instructions Indication:Uncontrolled type 2 diabetes mellitus Start:05-May-2018 Instruction Type:Provider Instructions for Treatment How to access health informa tion online Indication:Diabetes type 2, controlled Start:30-Dec-2017 Instruction Type:Patient Education How to access health informa tion online - Detail Indication:Diabetes type 2, controlled Start:30-Dec-2017 Instruction Type:Patient Education Patient Instructions Indication:Diabetes type 2, controlled Start:30-Dec-2017 Instruction Type:Provider Instructions for Treatment How to access health informa tion online Indication:Low back pain Start:06-Dec-2017 Instruction Type:Patient Education How to access health informa tion online - Detail Indication:Low back pain Start:06-Dec-2017 Instruction Type:Patient Education Patient Instructions Indication:Low back pain Start:06-Dec-2017 Instruction Type:Provider Instructions for Treatment How to access health informa tion online Indication:Lower abdominal pain Start:03-Dec-2017 Instruction Type:Patient Education How to access health informa tion online - Detail Indication:Lower abdominal pain Start:03-Dec-2017 Instruction Type:Patient Education Patient Instructions Indication:Lower abdominal pain Start:03-Dec-2017 Instruction Type:Provider Instructions for Treatment How to access health informa tion online Indication:Diabetes type 2, controlled Start:24-Sep-2017 Instruction Type:Patient Education How to access health informa tion online - Detail Indication:Diabetes type 2, controlled Start:24-Sep-2017 Instruction Type:Patient Education Patient Instructions Indication:Diabetes type 2, controlled Start:24-Sep-2017 Instruction Type:Provider Instructions for Treatment How to access health informa tion online Indication:Diabetes type 2, controlled Start:20-May-2017 Instruction Type:Patient Education How to access health informa tion online - Detail Indication:Diabetes type 2, controlled Start:20-May-2017 Instruction Type:Patient Education Patient Instructions Indication:Diabetes type 2, controlled Start:20-May-2017 Instruction Type:Provider Instructions for Treatment How to access health informa tion online Indication:Current smoker Start:14-Jan-2017 Instruction Type:Patient Education How to access health informa tion online - Detail Indication:Current smoker Start:14-Jan-2017 Instruction Type:Patient Education Patient Instructions Indication:Current smoker Start:14-Jan-2017 Instruction Type:Provider Instructions for Treatment How to access health informa tion online Indication:Current nonsmoker (Renamed from Current non-smoker) Start:11-Jan-2017 Instruction Type:Patient Education How to access health informa tion online - Detail Indication:Current nonsmoker (Renamed from Current non-smoker) Start:11-Jan-2017 Instruction Type:Patient Education Patient Instructions Indication:Current nonsmoker (Renamed from Current non-smoker) Start:11-Jan-2017 Instruction Type:Provider Instructions for Treatment How to access health informa tion online Indication:Hypertension Start:09-Sep-2016 Instruction Type:Patient Education How to access health informa tion online - Detail Indication:Hypertension Start:09-Sep-2016 Instruction Type:Patient Education Patient Instructions Indication:Hypertension Start:09-Sep-2016 Instruction Type:Provider Instructions for Treatment How to access health informa tion online Indication:Hypertension Start:03-Apr-2016 Instruction Type:Patient Education How to access health informa tion online - Detail Indication:Hypertension Start:03-Apr-2016 Instruction Type:Patient Education Patient Instructions Indication:Hypertension Start:03-Apr-2016 Instruction Type:Provider Instructions for Treatment How to access health informa tion online Indication:Leg wound, left Start:08-Oct-2015 Instruction Type:Patient Education How to access health informa tion online - Detail Indication:Leg wound, left Start:08-Oct-2015 Instruction Type:Patient Education Patient Instructions Indication:Leg wound, left Start:08-Oct-2015 Instruction Type:Provider Instructions for Treatment How to access health informa tion online Indication:Hypertension Start:20-Sep-2015 Instruction Type:Patient Education How to access health informa tion online - Detail Indication:Hypertension Start:20-Sep-2015 Instruction Type:Patient Education Patient Instructions Indication:Hypertension Start:20-Sep-2015 Instruction Type:Provider Instructions for Treatment Patient Instructions Indication:Hypertension Start:10-May-2015 Instruction Type:Provider Instructions for Treatment Patient Instructions Indication:Infection Start:28-Aug-2013 Instruction Type:Provider Instructions for Treatment Patient Instructions Indication:Infection Start:25-Aug-2013 Instruction Type:Provider Instructions for Treatment Patient Instructions Indication:Infection Start:24-Aug-2013 Instruction Type:Provider Instructions for Treatment Patient Instructions Indication:Infection Start:23-Aug-2013 Instruction Type:Provider Instructions for Treatment Patient Instructions Indication:Hypertension Start:30-Jun-2013 Instruction Type:Provider Instructions for Treatment Patient Instructions Indication:Arthritis Start:30-Jun-2013 Instruction Type:Provider Instructions for Treatment Name Dates Details How to access health informa tion online Indication:BMI 38.0-38.9,adult Start:15-Dec-2018 Instruction Type:Patient Education How to access health informa tion online - Detail Indication:BMI 38.0-38.9,adult Start:15-Dec-2018 Instruction Type:Patient Education Patient Instructions Indication:BMI 38.0-38.9,adult Start:15-Dec-2018 Instruction Type:Provider Instructions for Treatment Patient Instructions Indication:Encounter for annual general medical examination with abnormal findings in adult Start:09-Sep-2018 Instruction Type:Provider Instructions for Treatment obesity counseling Indication:Uncontrolled type 2 diabetes mellitus Start:09-Sep-2018 Instruction Type:Provider Instructions for Treatment How to access health informa tion online Indication:Dysuria Start:24-Aug-2018 Instruction Type:Patient Education How to access health informa tion online - Detail Indication:Dysuria Start:24-Aug-2018 Instruction Type:Patient Education Patient Instructions Indication:Dysuria Start:24-Aug-2018 Instruction Type:Provider Instructions for Treatment How to access health informa tion online Indication:Uncontrolled type 2 diabetes mellitus Start:05-May-2018 Instruction Type:Patient Education How to access health informa tion online - Detail Indication:Uncontrolled type 2 diabetes mellitus Start:05-May-2018 Instruction Type:Patient Education Patient Instructions Indication:Uncontrolled type 2 diabetes mellitus Start:05-May-2018 Instruction Type:Provider Instructions for Treatment How to access health informa tion online Indication:Diabetes type 2, controlled Start:30-Dec-2017 Instruction Type:Patient Education How to access health informa tion online - Detail Indication:Diabetes type 2, controlled Start:30-Dec-2017 Instruction Type:Patient Education Patient Instructions Indication:Diabetes type 2, controlled Start:30-Dec-2017 Instruction Type:Provider Instructions for Treatment How to access health informa tion online Indication:Low back pain Start:06-Dec-2017 Instruction Type:Patient Education How to access health informa tion online - Detail Indication:Low back pain Start:06-Dec-2017 Instruction Type:Patient Education Patient Instructions Indication:Low back pain Start:06-Dec-2017 Instruction Type:Provider Instructions for Treatment How to access health informa tion online Indication:Lower abdominal pain Start:03-Dec-2017 Instruction Type:Patient Education How to access health informa tion online - Detail Indication:Lower abdominal pain Start:03-Dec-2017 Instruction Type:Patient Education Patient Instructions Indication:Lower abdominal pain Start:03-Dec-2017 Instruction Type:Provider Instructions for Treatment How to access health informa tion online Indication:Diabetes type 2, controlled Start:24-Sep-2017 Instruction Type:Patient Education How to access health informa tion online - Detail Indication:Diabetes type 2, controlled Start:24-Sep-2017 Instruction Type:Patient Education Patient Instructions Indication:Diabetes type 2, controlled Start:24-Sep-2017 Instruction Type:Provider Instructions for Treatment How to access health informa tion online Indication:Diabetes type 2, controlled Start:20-May-2017 Instruction Type:Patient Education How to access health informa tion online - Detail Indication:Diabetes type 2, controlled Start:20-May-2017 Instruction Type:Patient Education Patient Instructions Indication:Diabetes type 2, controlled Start:20-May-2017 Instruction Type:Provider Instructions for Treatment How to access health informa tion online Indication:Current smoker Start:14-Jan-2017 Instruction Type:Patient Education How to access health informa tion online - Detail Indication:Current smoker Start:14-Jan-2017 Instruction Type:Patient Education Patient Instructions Indication:Current smoker Start:14-Jan-2017 Instruction Type:Provider Instructions for Treatment How to access health informa tion online Indication:Current nonsmoker (Renamed from Current non-smoker) Start:11-Jan-2017 Instruction Type:Patient Education How to access health informa tion online - Detail Indication:Current nonsmoker (Renamed from Current non-smoker) Start:11-Jan-2017 Instruction Type:Patient Education Patient Instructions Indication:Current nonsmoker (Renamed from Current non-smoker) Start:11-Jan-2017 Instruction Type:Provider Instructions for Treatment How to access health informa tion online Indication:Hypertension Start:09-Sep-2016 Instruction Type:Patient Education How to access health informa tion online - Detail Indication:Hypertension Start:09-Sep-2016 Instruction Type:Patient Education Patient Instructions Indication:Hypertension Start:09-Sep-2016 Instruction Type:Provider Instructions for Treatment How to access health informa tion online Indication:Hypertension Start:03-Apr-2016 Instruction Type:Patient Education How to access health informa tion online - Detail Indication:Hypertension Start:03-Apr-2016 Instruction Type:Patient Education Patient Instructions Indication:Hypertension Start:03-Apr-2016 Instruction Type:Provider Instructions for Treatment How to access health informa tion online Indication:Leg wound, left Start:08-Oct-2015 Instruction Type:Patient Education How to access health informa tion online - Detail Indication:Leg wound, left Start:08-Oct-2015 Instruction Type:Patient Education Patient Instructions Indication:Leg wound, left Start:08-Oct-2015 Instruction Type:Provider Instructions for Treatment How to access health informa tion online Indication:Hypertension Start:20-Sep-2015 Instruction Type:Patient Education How to access health informa tion online - Detail Indication:Hypertension Start:20-Sep-2015 Instruction Type:Patient Education Patient Instructions Indication:Hypertension Start:20-Sep-2015 Instruction Type:Provider Instructions for Treatment Patient Instructions Indication:Hypertension Start:10-May-2015 Instruction Type:Provider Instructions for Treatment Patient Instructions Indication:Infection Start:28-Aug-2013 Instruction Type:Provider Instructions for Treatment Patient Instructions Indication:Infection Start:25-Aug-2013 Instruction Type:Provider Instructions for Treatment Patient Instructions Indication:Infection Start:24-Aug-2013 Instruction Type:Provider Instructions for Treatment Patient Instructions Indication:Infection Start:23-Aug-2013 Instruction Type:Provider Instructions for Treatment Patient Instructions Indication:Hypertension Start:30-Jun-2013 Instruction Type:Provider Instructions for Treatment Patient Instructions Indication:Arthritis Start:30-Jun-2013 Instruction Type:Provider Instructions for Treatment Name Dates Details How to access health informa tion online Indication:BMI 38.0-38.9,adult Start:15-Dec-2018 Instruction Type:Patient Education How to access health informa tion online - Detail Indication:BMI 38.0-38.9,adult Start:15-Dec-2018 Instruction Type:Patient Education Patient Instructions Indication:BMI 38.0-38.9,adult Start:15-Dec-2018 Instruction Type:Provider Instructions for Treatment Patient Instructions Indication:Encounter for annual general medical examination with abnormal findings in adult Start:09-Sep-2018 Instruction Type:Provider Instructions for Treatment obesity counseling Indication:Uncontrolled type 2 diabetes mellitus Start:09-Sep-2018 Instruction Type:Provider Instructions for Treatment How to access health informa tion online Indication:Dysuria Start:24-Aug-2018 Instruction Type:Patient Education How to access health informa tion online - Detail Indication:Dysuria Start:24-Aug-2018 Instruction Type:Patient Education Patient Instructions Indication:Dysuria Start:24-Aug-2018 Instruction Type:Provider Instructions for Treatment How to access health informa tion online Indication:Uncontrolled type 2 diabetes mellitus Start:05-May-2018 Instruction Type:Patient Education How to access health informa tion online - Detail Indication:Uncontrolled type 2 diabetes mellitus Start:05-May-2018 Instruction Type:Patient Education Patient Instructions Indication:Uncontrolled type 2 diabetes mellitus Start:05-May-2018 Instruction Type:Provider Instructions for Treatment How to access health informa tion online Indication:Diabetes type 2, controlled Start:30-Dec-2017 Instruction Type:Patient Education How to access health informa tion online - Detail Indication:Diabetes type 2, controlled Start:30-Dec-2017 Instruction Type:Patient Education Patient Instructions Indication:Diabetes type 2, controlled Start:30-Dec-2017 Instruction Type:Provider Instructions for Treatment How to access health informa tion online Indication:Low back pain Start:06-Dec-2017 Instruction Type:Patient Education How to access health informa tion online - Detail Indication:Low back pain Start:06-Dec-2017 Instruction Type:Patient Education Patient Instructions Indication:Low back pain Start:06-Dec-2017 Instruction Type:Provider Instructions for Treatment How to access health informa tion online Indication:Lower abdominal pain Start:03-Dec-2017 Instruction Type:Patient Education How to access health informa tion online - Detail Indication:Lower abdominal pain Start:03-Dec-2017 Instruction Type:Patient Education Patient Instructions Indication:Lower abdominal pain Start:03-Dec-2017 Instruction Type:Provider Instructions for Treatment How to access health informa tion online Indication:Diabetes type 2, controlled Start:24-Sep-2017 Instruction Type:Patient Education How to access health informa tion online - Detail Indication:Diabetes type 2, controlled Start:24-Sep-2017 Instruction Type:Patient Education Patient Instructions Indication:Diabetes type 2, controlled Start:24-Sep-2017 Instruction Type:Provider Instructions for Treatment How to access health informa tion online Indication:Diabetes type 2, controlled Start:20-May-2017 Instruction Type:Patient Education How to access health informa tion online - Detail Indication:Diabetes type 2, controlled Start:20-May-2017 Instruction Type:Patient Education Patient Instructions Indication:Diabetes type 2, controlled Start:20-May-2017 Instruction Type:Provider Instructions for Treatment How to access health informa tion online Indication:Current smoker Start:14-Jan-2017 Instruction Type:Patient Education How to access health informa tion online - Detail Indication:Current smoker Start:14-Jan-2017 Instruction Type:Patient Education Patient Instructions Indication:Current smoker Start:14-Jan-2017 Instruction Type:Provider Instructions for Treatment How to access health informa tion online Indication:Current nonsmoker (Renamed from Current non-smoker) Start:11-Jan-2017 Instruction Type:Patient Education How to access health informa tion online - Detail Indication:Current nonsmoker (Renamed from Current non-smoker) Start:11-Jan-2017 Instruction Type:Patient Education Patient Instructions Indication:Current nonsmoker (Renamed from Current non-smoker) Start:11-Jan-2017 Instruction Type:Provider Instructions for Treatment How to access health informa tion online Indication:Hypertension Start:09-Sep-2016 Instruction Type:Patient Education How to access health informa tion online - Detail Indication:Hypertension Start:09-Sep-2016 Instruction Type:Patient Education Patient Instructions Indication:Hypertension Start:09-Sep-2016 Instruction Type:Provider Instructions for Treatment How to access health informa tion online Indication:Hypertension Start:03-Apr-2016 Instruction Type:Patient Education How to access health informa tion online - Detail Indication:Hypertension Start:03-Apr-2016 Instruction Type:Patient Education Patient Instructions Indication:Hypertension Start:03-Apr-2016 Instruction Type:Provider Instructions for Treatment How to access health informa tion online Indication:Leg wound, left Start:08-Oct-2015 Instruction Type:Patient Education How to access health informa tion online - Detail Indication:Leg wound, left Start:08-Oct-2015 Instruction Type:Patient Education Patient Instructions Indication:Leg wound, left Start:08-Oct-2015 Instruction Type:Provider Instructions for Treatment How to access health informa tion online Indication:Hypertension Start:20-Sep-2015 Instruction Type:Patient Education How to access health informa tion online - Detail Indication:Hypertension Start:20-Sep-2015 Instruction Type:Patient Education Patient Instructions Indication:Hypertension Start:20-Sep-2015 Instruction Type:Provider Instructions for Treatment Patient Instructions Indication:Hypertension Start:10-May-2015 Instruction Type:Provider Instructions for Treatment Patient Instructions Indication:Infection Start:28-Aug-2013 Instruction Type:Provider Instructions for Treatment Patient Instructions Indication:Infection Start:25-Aug-2013 Instruction Type:Provider Instructions for Treatment Patient Instructions Indication:Infection Start:24-Aug-2013 Instruction Type:Provider Instructions for Treatment Patient Instructions Indication:Infection Start:23-Aug-2013 Instruction Type:Provider Instructions for Treatment Patient Instructions Indication:Hypertension Start:30-Jun-2013 Instruction Type:Provider Instructions for Treatment Patient Instructions Indication:Arthritis Start:30-Jun-2013 Instruction Type:Provider Instructions for Treatment Name Dates Details How to access health informa tion online Indication:Current nonsmoker (Renamed from Current non-smoker) Start:16-Oct-2020 Instruction Type:Patient Education How to access health informa tion online - Detail Indication:Current nonsmoker (Renamed from Current non-smoker) Start:16-Oct-2020 Instruction Type:Patient Education Patient Instructions Indication:Current nonsmoker (Renamed from Current non-smoker) Start:16-Oct-2020 Instruction Type:Provider Instructions for Treatment How to access health informa tion online Indication:BMI 38.0-38.9,adult Start:15-Dec-2018 Instruction Type:Patient Education How to access health informa tion online - Detail Indication:BMI 38.0-38.9,adult Start:15-Dec-2018 Instruction Type:Patient Education Patient Instructions Indication:BMI 38.0-38.9,adult Start:15-Dec-2018 Instruction Type:Provider Instructions for Treatment Patient Instructions Indication:Encounter for annual general medical examination with abnormal findings in adult Start:09-Sep-2018 Instruction Type:Provider Instructions for Treatment obesity counseling Indication:Uncontrolled type 2 diabetes mellitus Start:09-Sep-2018 Instruction Type:Provider Instructions for Treatment How to access health informa tion online Indication:Dysuria Start:24-Aug-2018 Instruction Type:Patient Education How to access health informa tion online - Detail Indication:Dysuria Start:24-Aug-2018 Instruction Type:Patient Education Patient Instructions Indication:Dysuria Start:24-Aug-2018 Instruction Type:Provider Instructions for Treatment How to access health informa tion online Indication:Uncontrolled type 2 diabetes mellitus Start:05-May-2018 Instruction Type:Patient Education How to access health informa tion online - Detail Indication:Uncontrolled type 2 diabetes mellitus Start:05-May-2018 Instruction Type:Patient Education Patient Instructions Indication:Uncontrolled type 2 diabetes mellitus Start:05-May-2018 Instruction Type:Provider Instructions for Treatment How to access health informa tion online Indication:Diabetes type 2, controlled Start:30-Dec-2017 Instruction Type:Patient Education How to access health informa tion online - Detail Indication:Diabetes type 2, controlled Start:30-Dec-2017 Instruction Type:Patient Education Patient Instructions Indication:Diabetes type 2, controlled Start:30-Dec-2017 Instruction Type:Provider Instructions for Treatment How to access health informa tion online Indication:Low back pain Start:06-Dec-2017 Instruction Type:Patient Education How to access health informa tion online - Detail Indication:Low back pain Start:06-Dec-2017 Instruction Type:Patient Education Patient Instructions Indication:Low back pain Start:06-Dec-2017 Instruction Type:Provider Instructions for Treatment How to access health informa tion online Indication:Lower abdominal pain Start:03-Dec-2017 Instruction Type:Patient Education How to access health informa tion online - Detail Indication:Lower abdominal pain Start:03-Dec-2017 Instruction Type:Patient Education Patient Instructions Indication:Lower abdominal pain Start:03-Dec-2017 Instruction Type:Provider Instructions for Treatment How to access health informa tion online Indication:Diabetes type 2, controlled Start:24-Sep-2017 Instruction Type:Patient Education How to access health informa tion online - Detail Indication:Diabetes type 2, controlled Start:24-Sep-2017 Instruction Type:Patient Education Patient Instructions Indication:Diabetes type 2, controlled Start:24-Sep-2017 Instruction Type:Provider Instructions for Treatment How to access health informa tion online Indication:Diabetes type 2, controlled Start:20-May-2017 Instruction Type:Patient Education How to access health informa tion online - Detail Indication:Diabetes type 2, controlled Start:20-May-2017 Instruction Type:Patient Education Patient Instructions Indication:Diabetes type 2, controlled Start:20-May-2017 Instruction Type:Provider Instructions for Treatment How to access health informa tion online Indication:Current smoker Start:14-Jan-2017 Instruction Type:Patient Education How to access health informa tion online - Detail Indication:Current smoker Start:14-Jan-2017 Instruction Type:Patient Education Patient Instructions Indication:Current smoker Start:14-Jan-2017 Instruction Type:Provider Instructions for Treatment How to access health informa tion online Indication:Current nonsmoker (Renamed from Current non-smoker) Start:11-Jan-2017 Instruction Type:Patient Education How to access health informa tion online - Detail Indication:Current nonsmoker (Renamed from Current non-smoker) Start:11-Jan-2017 Instruction Type:Patient Education Patient Instructions Indication:Current nonsmoker (Renamed from Current non-smoker) Start:11-Jan-2017 Instruction Type:Provider Instructions for Treatment How to access health informa tion online Indication:Hypertension Start:09-Sep-2016 Instruction Type:Patient Education How to access health informa tion online - Detail Indication:Hypertension Start:09-Sep-2016 Instruction Type:Patient Education Patient Instructions Indication:Hypertension Start:09-Sep-2016 Instruction Type:Provider Instructions for Treatment How to access health informa tion online Indication:Hypertension Start:03-Apr-2016 Instruction Type:Patient Education How to access health informa tion online - Detail Indication:Hypertension Start:03-Apr-2016 Instruction Type:Patient Education Patient Instructions Indication:Hypertension Start:03-Apr-2016 Instruction Type:Provider Instructions for Treatment How to access health informa tion online Indication:Leg wound, left Start:08-Oct-2015 Instruction Type:Patient Education How to access health informa tion online - Detail Indication:Leg wound, left Start:08-Oct-2015 Instruction Type:Patient Education Patient Instructions Indication:Leg wound, left Start:08-Oct-2015 Instruction Type:Provider Instructions for Treatment How to access health informa tion online Indication:Hypertension Start:20-Sep-2015 Instruction Type:Patient Education How to access health informa tion online - Detail Indication:Hypertension Start:20-Sep-2015 Instruction Type:Patient Education Patient Instructions Indication:Hypertension Start:20-Sep-2015 Instruction Type:Provider Instructions for Treatment Patient Instructions Indication:Hypertension Start:10-May-2015 Instruction Type:Provider Instructions for Treatment Patient Instructions Indication:Infection Start:28-Aug-2013 Instruction Type:Provider Instructions for Treatment Patient Instructions Indication:Infection Start:25-Aug-2013 Instruction Type:Provider Instructions for Treatment Patient Instructions Indication:Infection Start:24-Aug-2013 Instruction Type:Provider Instructions for Treatment Patient Instructions Indication:Infection Start:23-Aug-2013 Instruction Type:Provider Instructions for Treatment Patient Instructions Indication:Hypertension Start:30-Jun-2013 Instruction Type:Provider Instructions for Treatment Patient Instructions Indication:Arthritis Start:30-Jun-2013 Instruction Type:Provider Instructions for Treatment Name Dates Details How to access health informa tion online Indication:Current nonsmoker (Renamed from Current non-smoker) Start:16-Oct-2020 Instruction Type:Patient Education How to access health informa tion online - Detail Indication:Current nonsmoker (Renamed from Current non-smoker) Start:16-Oct-2020 Instruction Type:Patient Education Patient Instructions Indication:Current nonsmoker (Renamed from Current non-smoker) Start:16-Oct-2020 Instruction Type:Provider Instructions for Treatment How to access health informa tion online Indication:BMI 38.0-38.9,adult Start:15-Dec-2018 Instruction Type:Patient Education How to access health informa tion online - Detail Indication:BMI 38.0-38.9,adult Start:15-Dec-2018 Instruction Type:Patient Education Patient Instructions Indication:BMI 38.0-38.9,adult Start:15-Dec-2018 Instruction Type:Provider Instructions for Treatment Patient Instructions Indication:Encounter for annual general medical examination with abnormal findings in adult Start:09-Sep-2018 Instruction Type:Provider Instructions for Treatment obesity counseling Indication:Uncontrolled type 2 diabetes mellitus Start:09-Sep-2018 Instruction Type:Provider Instructions for Treatment How to access health informa tion online Indication:Dysuria Start:24-Aug-2018 Instruction Type:Patient Education How to access health informa tion online - Detail Indication:Dysuria Start:24-Aug-2018 Instruction Type:Patient Education Patient Instructions Indication:Dysuria Start:24-Aug-2018 Instruction Type:Provider Instructions for Treatment How to access health informa tion online Indication:Uncontrolled type 2 diabetes mellitus Start:05-May-2018 Instruction Type:Patient Education How to access health informa tion online - Detail Indication:Uncontrolled type 2 diabetes mellitus Start:05-May-2018 Instruction Type:Patient Education Patient Instructions Indication:Uncontrolled type 2 diabetes mellitus Start:05-May-2018 Instruction Type:Provider Instructions for Treatment How to access health informa tion online Indication:Diabetes type 2, controlled Start:30-Dec-2017 Instruction Type:Patient Education How to access health informa tion online - Detail Indication:Diabetes type 2, controlled Start:30-Dec-2017 Instruction Type:Patient Education Patient Instructions Indication:Diabetes type 2, controlled Start:30-Dec-2017 Instruction Type:Provider Instructions for Treatment How to access health informa tion online Indication:Low back pain Start:06-Dec-2017 Instruction Type:Patient Education How to access health informa tion online - Detail Indication:Low back pain Start:06-Dec-2017 Instruction Type:Patient Education Patient Instructions Indication:Low back pain Start:06-Dec-2017 Instruction Type:Provider Instructions for Treatment How to access health informa tion online Indication:Lower abdominal pain Start:03-Dec-2017 Instruction Type:Patient Education How to access health informa tion online - Detail Indication:Lower abdominal pain Start:03-Dec-2017 Instruction Type:Patient Education Patient Instructions Indication:Lower abdominal pain Start:03-Dec-2017 Instruction Type:Provider Instructions for Treatment How to access health informa tion online Indication:Diabetes type 2, controlled Start:24-Sep-2017 Instruction Type:Patient Education How to access health informa tion online - Detail Indication:Diabetes type 2, controlled Start:24-Sep-2017 Instruction Type:Patient Education Patient Instructions Indication:Diabetes type 2, controlled Start:24-Sep-2017 Instruction Type:Provider Instructions for Treatment How to access health informa tion online Indication:Diabetes type 2, controlled Start:20-May-2017 Instruction Type:Patient Education How to access health informa tion online - Detail Indication:Diabetes type 2, controlled Start:20-May-2017 Instruction Type:Patient Education Patient Instructions Indication:Diabetes type 2, controlled Start:20-May-2017 Instruction Type:Provider Instructions for Treatment How to access health informa tion online Indication:Current smoker Start:14-Jan-2017 Instruction Type:Patient Education How to access health informa tion online - Detail Indication:Current smoker Start:14-Jan-2017 Instruction Type:Patient Education Patient Instructions Indication:Current smoker Start:14-Jan-2017 Instruction Type:Provider Instructions for Treatment How to access health informa tion online Indication:Current nonsmoker (Renamed from Current non-smoker) Start:11-Jan-2017 Instruction Type:Patient Education How to access health informa tion online - Detail Indication:Current nonsmoker (Renamed from Current non-smoker) Start:11-Jan-2017 Instruction Type:Patient Education Patient Instructions Indication:Current nonsmoker (Renamed from Current non-smoker) Start:11-Jan-2017 Instruction Type:Provider Instructions for Treatment How to access health informa tion online Indication:Hypertension Start:09-Sep-2016 Instruction Type:Patient Education How to access health informa tion online - Detail Indication:Hypertension Start:09-Sep-2016 Instruction Type:Patient Education Patient Instructions Indication:Hypertension Start:09-Sep-2016 Instruction Type:Provider Instructions for Treatment How to access health informa tion online Indication:Hypertension Start:03-Apr-2016 Instruction Type:Patient Education How to access health informa tion online - Detail Indication:Hypertension Start:03-Apr-2016 Instruction Type:Patient Education Patient Instructions Indication:Hypertension Start:03-Apr-2016 Instruction Type:Provider Instructions for Treatment How to access health informa tion online Indication:Leg wound, left Start:08-Oct-2015 Instruction Type:Patient Education How to access health informa tion online - Detail Indication:Leg wound, left Start:08-Oct-2015 Instruction Type:Patient Education Patient Instructions Indication:Leg wound, left Start:08-Oct-2015 Instruction Type:Provider Instructions for Treatment How to access health informa tion online Indication:Hypertension Start:20-Sep-2015 Instruction Type:Patient Education How to access health informa tion online - Detail Indication:Hypertension Start:20-Sep-2015 Instruction Type:Patient Education Patient Instructions Indication:Hypertension Start:20-Sep-2015 Instruction Type:Provider Instructions for Treatment Patient Instructions Indication:Hypertension Start:10-May-2015 Instruction Type:Provider Instructions for Treatment Patient Instructions Indication:Infection Start:28-Aug-2013 Instruction Type:Provider Instructions for Treatment Patient Instructions Indication:Infection Start:25-Aug-2013 Instruction Type:Provider Instructions for Treatment Patient Instructions Indication:Infection Start:24-Aug-2013 Instruction Type:Provider Instructions for Treatment Patient Instructions Indication:Infection Start:23-Aug-2013 Instruction Type:Provider Instructions for Treatment Patient Instructions Indication:Hypertension Start:30-Jun-2013 Instruction Type:Provider Instructions for Treatment Patient Instructions Indication:Arthritis Start:30-Jun-2013 Instruction Type:Provider Instructions for Treatment Name Dates Details How to access health informa tion online Indication:Current nonsmoker (Renamed from Current non-smoker) Start:16-Oct-2020 Instruction Type:Patient Education How to access health informa tion online - Detail Indication:Current nonsmoker (Renamed from Current non-smoker) Start:16-Oct-2020 Instruction Type:Patient Education Patient Instructions Indication:Current nonsmoker (Renamed from Current non-smoker) Start:16-Oct-2020 Instruction Type:Provider Instructions for Treatment How to access health informa tion online Indication:BMI 38.0-38.9,adult Start:15-Dec-2018 Instruction Type:Patient Education How to access health informa tion online - Detail Indication:BMI 38.0-38.9,adult Start:15-Dec-2018 Instruction Type:Patient Education Patient Instructions Indication:BMI 38.0-38.9,adult Start:15-Dec-2018 Instruction Type:Provider Instructions for Treatment Patient Instructions Indication:Encounter for annual general medical examination with abnormal findings in adult Start:09-Sep-2018 Instruction Type:Provider Instructions for Treatment obesity counseling Indication:Uncontrolled type 2 diabetes mellitus Start:09-Sep-2018 Instruction Type:Provider Instructions for Treatment How to access health informa tion online Indication:Dysuria Start:24-Aug-2018 Instruction Type:Patient Education How to access health informa tion online - Detail Indication:Dysuria Start:24-Aug-2018 Instruction Type:Patient Education Patient Instructions Indication:Dysuria Start:24-Aug-2018 Instruction Type:Provider Instructions for Treatment How to access health informa tion online Indication:Uncontrolled type 2 diabetes mellitus Start:05-May-2018 Instruction Type:Patient Education How to access health informa tion online - Detail Indication:Uncontrolled type 2 diabetes mellitus Start:05-May-2018 Instruction Type:Patient Education Patient Instructions Indication:Uncontrolled type 2 diabetes mellitus Start:05-May-2018 Instruction Type:Provider Instructions for Treatment How to access health informa tion online Indication:Diabetes type 2, controlled Start:30-Dec-2017 Instruction Type:Patient Education How to access health informa tion online - Detail Indication:Diabetes type 2, controlled Start:30-Dec-2017 Instruction Type:Patient Education Patient Instructions Indication:Diabetes type 2, controlled Start:30-Dec-2017 Instruction Type:Provider Instructions for Treatment How to access health informa tion online Indication:Low back pain Start:06-Dec-2017 Instruction Type:Patient Education How to access health informa tion online - Detail Indication:Low back pain Start:06-Dec-2017 Instruction Type:Patient Education Patient Instructions Indication:Low back pain Start:06-Dec-2017 Instruction Type:Provider Instructions for Treatment How to access health informa tion online Indication:Lower abdominal pain Start:03-Dec-2017 Instruction Type:Patient Education How to access health informa tion online - Detail Indication:Lower abdominal pain Start:03-Dec-2017 Instruction Type:Patient Education Patient Instructions Indication:Lower abdominal pain Start:03-Dec-2017 Instruction Type:Provider Instructions for Treatment How to access health informa tion online Indication:Diabetes type 2, controlled Start:24-Sep-2017 Instruction Type:Patient Education How to access health informa tion online - Detail Indication:Diabetes type 2, controlled Start:24-Sep-2017 Instruction Type:Patient Education Patient Instructions Indication:Diabetes type 2, controlled Start:24-Sep-2017 Instruction Type:Provider Instructions for Treatment How to access health informa tion online Indication:Diabetes type 2, controlled Start:20-May-2017 Instruction Type:Patient Education How to access health informa tion online - Detail Indication:Diabetes type 2, controlled Start:20-May-2017 Instruction Type:Patient Education Patient Instructions Indication:Diabetes type 2, controlled Start:20-May-2017 Instruction Type:Provider Instructions for Treatment How to access health informa tion online Indication:Current smoker Start:14-Jan-2017 Instruction Type:Patient Education How to access health informa tion online - Detail Indication:Current smoker Start:14-Jan-2017 Instruction Type:Patient Education Patient Instructions Indication:Current smoker Start:14-Jan-2017 Instruction Type:Provider Instructions for Treatment How to access health informa tion online Indication:Current nonsmoker (Renamed from Current non-smoker) Start:11-Jan-2017 Instruction Type:Patient Education How to access health informa tion online - Detail Indication:Current nonsmoker (Renamed from Current non-smoker) Start:11-Jan-2017 Instruction Type:Patient Education Patient Instructions Indication:Current nonsmoker (Renamed from Current non-smoker) Start:11-Jan-2017 Instruction Type:Provider Instructions for Treatment How to access health informa tion online Indication:Hypertension Start:09-Sep-2016 Instruction Type:Patient Education How to access health informa tion online - Detail Indication:Hypertension Start:09-Sep-2016 Instruction Type:Patient Education Patient Instructions Indication:Hypertension Start:09-Sep-2016 Instruction Type:Provider Instructions for Treatment How to access health informa tion online Indication:Hypertension Start:03-Apr-2016 Instruction Type:Patient Education How to access health informa tion online - Detail Indication:Hypertension Start:03-Apr-2016 Instruction Type:Patient Education Patient Instructions Indication:Hypertension Start:03-Apr-2016 Instruction Type:Provider Instructions for Treatment How to access health informa tion online Indication:Leg wound, left Start:08-Oct-2015 Instruction Type:Patient Education How to access health informa tion online - Detail Indication:Leg wound, left Start:08-Oct-2015 Instruction Type:Patient Education Patient Instructions Indication:Leg wound, left Start:08-Oct-2015 Instruction Type:Provider Instructions for Treatment How to access health informa tion online Indication:Hypertension Start:20-Sep-2015 Instruction Type:Patient Education How to access health informa tion online - Detail Indication:Hypertension Start:20-Sep-2015 Instruction Type:Patient Education Patient Instructions Indication:Hypertension Start:20-Sep-2015 Instruction Type:Provider Instructions for Treatment Patient Instructions Indication:Hypertension Start:10-May-2015 Instruction Type:Provider Instructions for Treatment Patient Instructions Indication:Infection Start:28-Aug-2013 Instruction Type:Provider Instructions for Treatment Patient Instructions Indication:Infection Start:25-Aug-2013 Instruction Type:Provider Instructions for Treatment Patient Instructions Indication:Infection Start:24-Aug-2013 Instruction Type:Provider Instructions for Treatment Patient Instructions Indication:Infection Start:23-Aug-2013 Instruction Type:Provider Instructions for Treatment Patient Instructions Indication:Hypertension Start:30-Jun-2013 Instruction Type:Provider Instructions for Treatment Patient Instructions Indication:Arthritis Start:30-Jun-2013 Instruction Type:Provider Instructions for Treatment Name Dates Details How to access health informa tion online Indication:Current nonsmoker (Renamed from Current non-smoker) Start:16-Oct-2020 Instruction Type:Patient Education How to access health informa tion online - Detail Indication:Current nonsmoker (Renamed from Current non-smoker) Start:16-Oct-2020 Instruction Type:Patient Education Patient Instructions Indication:Current nonsmoker (Renamed from Current non-smoker) Start:16-Oct-2020 Instruction Type:Provider Instructions for Treatment How to access health informa tion online Indication:BMI 38.0-38.9,adult Start:15-Dec-2018 Instruction Type:Patient Education How to access health informa tion online - Detail Indication:BMI 38.0-38.9,adult Start:15-Dec-2018 Instruction Type:Patient Education Patient Instructions Indication:BMI 38.0-38.9,adult Start:15-Dec-2018 Instruction Type:Provider Instructions for Treatment Patient Instructions Indication:Encounter for annual general medical examination with abnormal findings in adult Start:09-Sep-2018 Instruction Type:Provider Instructions for Treatment obesity counseling Indication:Uncontrolled type 2 diabetes mellitus Start:09-Sep-2018 Instruction Type:Provider Instructions for Treatment How to access health informa tion online Indication:Dysuria Start:24-Aug-2018 Instruction Type:Patient Education How to access health informa tion online - Detail Indication:Dysuria Start:24-Aug-2018 Instruction Type:Patient Education Patient Instructions Indication:Dysuria Start:24-Aug-2018 Instruction Type:Provider Instructions for Treatment How to access health informa tion online Indication:Uncontrolled type 2 diabetes mellitus Start:05-May-2018 Instruction Type:Patient Education How to access health informa tion online - Detail Indication:Uncontrolled type 2 diabetes mellitus Start:05-May-2018 Instruction Type:Patient Education Patient Instructions Indication:Uncontrolled type 2 diabetes mellitus Start:05-May-2018 Instruction Type:Provider Instructions for Treatment How to access health informa tion online Indication:Diabetes type 2, controlled Start:30-Dec-2017 Instruction Type:Patient Education How to access health informa tion online - Detail Indication:Diabetes type 2, controlled Start:30-Dec-2017 Instruction Type:Patient Education Patient Instructions Indication:Diabetes type 2, controlled Start:30-Dec-2017 Instruction Type:Provider Instructions for Treatment How to access health informa tion online Indication:Low back pain Start:06-Dec-2017 Instruction Type:Patient Education How to access health informa tion online - Detail Indication:Low back pain Start:06-Dec-2017 Instruction Type:Patient Education Patient Instructions Indication:Low back pain Start:06-Dec-2017 Instruction Type:Provider Instructions for Treatment How to access health informa tion online Indication:Lower abdominal pain Start:03-Dec-2017 Instruction Type:Patient Education How to access health informa tion online - Detail Indication:Lower abdominal pain Start:03-Dec-2017 Instruction Type:Patient Education Patient Instructions Indication:Lower abdominal pain Start:03-Dec-2017 Instruction Type:Provider Instructions for Treatment How to access health informa tion online Indication:Diabetes type 2, controlled Start:24-Sep-2017 Instruction Type:Patient Education How to access health informa tion online - Detail Indication:Diabetes type 2, controlled Start:24-Sep-2017 Instruction Type:Patient Education Patient Instructions Indication:Diabetes type 2, controlled Start:24-Sep-2017 Instruction Type:Provider Instructions for Treatment How to access health informa tion online Indication:Diabetes type 2, controlled Start:20-May-2017 Instruction Type:Patient Education How to access health informa tion online - Detail Indication:Diabetes type 2, controlled Start:20-May-2017 Instruction Type:Patient Education Patient Instructions Indication:Diabetes type 2, controlled Start:20-May-2017 Instruction Type:Provider Instructions for Treatment How to access health informa tion online Indication:Current smoker Start:14-Jan-2017 Instruction Type:Patient Education How to access health informa tion online - Detail Indication:Current smoker Start:14-Jan-2017 Instruction Type:Patient Education Patient Instructions Indication:Current smoker Start:14-Jan-2017 Instruction Type:Provider Instructions for Treatment How to access health informa tion online Indication:Current nonsmoker (Renamed from Current non-smoker) Start:11-Jan-2017 Instruction Type:Patient Education How to access health informa tion online - Detail Indication:Current nonsmoker (Renamed from Current non-smoker) Start:11-Jan-2017 Instruction Type:Patient Education Patient Instructions Indication:Current nonsmoker (Renamed from Current non-smoker) Start:11-Jan-2017 Instruction Type:Provider Instructions for Treatment How to access health informa tion online Indication:Hypertension Start:09-Sep-2016 Instruction Type:Patient Education How to access health informa tion online - Detail Indication:Hypertension Start:09-Sep-2016 Instruction Type:Patient Education Patient Instructions Indication:Hypertension Start:09-Sep-2016 Instruction Type:Provider Instructions for Treatment How to access health informa tion online Indication:Hypertension Start:03-Apr-2016 Instruction Type:Patient Education How to access health informa tion online - Detail Indication:Hypertension Start:03-Apr-2016 Instruction Type:Patient Education Patient Instructions Indication:Hypertension Start:03-Apr-2016 Instruction Type:Provider Instructions for Treatment How to access health informa tion online Indication:Leg wound, left Start:08-Oct-2015 Instruction Type:Patient Education How to access health informa tion online - Detail Indication:Leg wound, left Start:08-Oct-2015 Instruction Type:Patient Education Patient Instructions Indication:Leg wound, left Start:08-Oct-2015 Instruction Type:Provider Instructions for Treatment How to access health informa tion online Indication:Hypertension Start:20-Sep-2015 Instruction Type:Patient Education How to access health informa tion online - Detail Indication:Hypertension Start:20-Sep-2015 Instruction Type:Patient Education Patient Instructions Indication:Hypertension Start:20-Sep-2015 Instruction Type:Provider Instructions for Treatment Patient Instructions Indication:Hypertension Start:10-May-2015 Instruction Type:Provider Instructions for Treatment Patient Instructions Indication:Infection Start:28-Aug-2013 Instruction Type:Provider Instructions for Treatment Patient Instructions Indication:Infection Start:25-Aug-2013 Instruction Type:Provider Instructions for Treatment Patient Instructions Indication:Infection Start:24-Aug-2013 Instruction Type:Provider Instructions for Treatment Patient Instructions Indication:Infection Start:23-Aug-2013 Instruction Type:Provider Instructions for Treatment Patient Instructions Indication:Hypertension Start:30-Jun-2013 Instruction Type:Provider Instructions for Treatment Patient Instructions Indication:Arthritis Start:30-Jun-2013 Instruction Type:Provider Instructions for Treatment Name Dates Details obesity counseling Indication:Uncontrolled type 2 diabetes mellitus Start:09-Dec-2020 Instruction Type:Provider Instructions for Treatment How to Access Health Informa tion Online using Patient Portal and [employer] Apps Indication:Current nonsmoker (Renamed from Current non-smoker) Start:09-Dec-2020 Instruction Type:Patient Education Patient Instructions Indication:Current nonsmoker (Renamed from Current non-smoker) Start:09-Dec-2020 Instruction Type:Provider Instructions for Treatment How to access health informa tion online Indication:Current nonsmoker (Renamed from Current non-smoker) Start:16-Oct-2020 Instruction Type:Patient Education How to access health informa tion online - Detail Indication:Current nonsmoker (Renamed from Current non-smoker) Start:16-Oct-2020 Instruction Type:Patient Education Patient Instructions Indication:Current nonsmoker (Renamed from Current non-smoker) Start:16-Oct-2020 Instruction Type:Provider Instructions for Treatment How to access health informa tion online Indication:BMI 38.0-38.9,adult Start:15-Dec-2018 Instruction Type:Patient Education How to access health informa tion online - Detail Indication:BMI 38.0-38.9,adult Start:15-Dec-2018 Instruction Type:Patient Education Patient Instructions Indication:BMI 38.0-38.9,adult Start:15-Dec-2018 Instruction Type:Provider Instructions for Treatment Patient Instructions Indication:Encounter for annual general medical examination with abnormal findings in adult Start:09-Sep-2018 Instruction Type:Provider Instructions for Treatment obesity counseling Indication:Uncontrolled type 2 diabetes mellitus Start:09-Sep-2018 Instruction Type:Provider Instructions for Treatment How to access health informa tion online Indication:Dysuria Start:24-Aug-2018 Instruction Type:Patient Education How to access health informa tion online - Detail Indication:Dysuria Start:24-Aug-2018 Instruction Type:Patient Education Patient Instructions Indication:Dysuria Start:24-Aug-2018 Instruction Type:Provider Instructions for Treatment How to access health informa tion online Indication:Uncontrolled type 2 diabetes mellitus Start:05-May-2018 Instruction Type:Patient Education How to access health informa tion online - Detail Indication:Uncontrolled type 2 diabetes mellitus Start:05-May-2018 Instruction Type:Patient Education Patient Instructions Indication:Uncontrolled type 2 diabetes mellitus Start:05-May-2018 Instruction Type:Provider Instructions for Treatment How to access health informa tion online Indication:Diabetes type 2, controlled Start:30-Dec-2017 Instruction Type:Patient Education How to access health informa tion online - Detail Indication:Diabetes type 2, controlled Start:30-Dec-2017 Instruction Type:Patient Education Patient Instructions Indication:Diabetes type 2, controlled Start:30-Dec-2017 Instruction Type:Provider Instructions for Treatment How to access health informa tion online Indication:Low back pain Start:06-Dec-2017 Instruction Type:Patient Education How to access health informa tion online - Detail Indication:Low back pain Start:06-Dec-2017 Instruction Type:Patient Education Patient Instructions Indication:Low back pain Start:06-Dec-2017 Instruction Type:Provider Instructions for Treatment How to access health informa tion online Indication:Lower abdominal pain Start:03-Dec-2017 Instruction Type:Patient Education How to access health informa tion online - Detail Indication:Lower abdominal pain Start:03-Dec-2017 Instruction Type:Patient Education Patient Instructions Indication:Lower abdominal pain Start:03-Dec-2017 Instruction Type:Provider Instructions for Treatment How to access health informa tion online Indication:Diabetes type 2, controlled Start:24-Sep-2017 Instruction Type:Patient Education How to access health informa tion online - Detail Indication:Diabetes type 2, controlled Start:24-Sep-2017 Instruction Type:Patient Education Patient Instructions Indication:Diabetes type 2, controlled Start:24-Sep-2017 Instruction Type:Provider Instructions for Treatment How to access health informa tion online Indication:Diabetes type 2, controlled Start:20-May-2017 Instruction Type:Patient Education How to access health informa tion online - Detail Indication:Diabetes type 2, controlled Start:20-May-2017 Instruction Type:Patient Education Patient Instructions Indication:Diabetes type 2, controlled Start:20-May-2017 Instruction Type:Provider Instructions for Treatment How to access health informa tion online Indication:Current smoker Start:14-Jan-2017 Instruction Type:Patient Education How to access health informa tion online - Detail Indication:Current smoker Start:14-Jan-2017 Instruction Type:Patient Education Patient Instructions Indication:Current smoker Start:14-Jan-2017 Instruction Type:Provider Instructions for Treatment How to access health informa tion online Indication:Current nonsmoker (Renamed from Current non-smoker) Start:11-Jan-2017 Instruction Type:Patient Education How to access health informa tion online - Detail Indication:Current nonsmoker (Renamed from Current non-smoker) Start:11-Jan-2017 Instruction Type:Patient Education Patient Instructions Indication:Current nonsmoker (Renamed from Current non-smoker) Start:11-Jan-2017 Instruction Type:Provider Instructions for Treatment How to access health informa tion online Indication:Hypertension Start:09-Sep-2016 Instruction Type:Patient Education How to access health informa tion online - Detail Indication:Hypertension Start:09-Sep-2016 Instruction Type:Patient Education Patient Instructions Indication:Hypertension Start:09-Sep-2016 Instruction Type:Provider Instructions for Treatment How to access health informa tion online Indication:Hypertension Start:03-Apr-2016 Instruction Type:Patient Education How to access health informa tion online - Detail Indication:Hypertension Start:03-Apr-2016 Instruction Type:Patient Education Patient Instructions Indication:Hypertension Start:03-Apr-2016 Instruction Type:Provider Instructions for Treatment How to access health informa tion online Indication:Leg wound, left Start:08-Oct-2015 Instruction Type:Patient Education How to access health informa tion online - Detail Indication:Leg wound, left Start:08-Oct-2015 Instruction Type:Patient Education Patient Instructions Indication:Leg wound, left Start:08-Oct-2015 Instruction Type:Provider Instructions for Treatment How to access health informa tion online Indication:Hypertension Start:20-Sep-2015 Instruction Type:Patient Education How to access health informa tion online - Detail Indication:Hypertension Start:20-Sep-2015 Instruction Type:Patient Education Patient Instructions Indication:Hypertension Start:20-Sep-2015 Instruction Type:Provider Instructions for Treatment Patient Instructions Indication:Hypertension Start:10-May-2015 Instruction Type:Provider Instructions for Treatment Patient Instructions Indication:Infection Start:28-Aug-2013 Instruction Type:Provider Instructions for Treatment Patient Instructions Indication:Infection Start:25-Aug-2013 Instruction Type:Provider Instructions for Treatment Patient Instructions Indication:Infection Start:24-Aug-2013 Instruction Type:Provider Instructions for Treatment Patient Instructions Indication:Infection Start:23-Aug-2013 Instruction Type:Provider Instructions for Treatment Patient Instructions Indication:Hypertension Start:30-Jun-2013 Instruction Type:Provider Instructions for Treatment Patient Instructions Indication:Arthritis Start:30-Jun-2013 Instruction Type:Provider Instructions for Treatment Name Dates Details obesity counseling Indication:Uncontrolled type 2 diabetes mellitus Start:09-Dec-2020 Instruction Type:Provider Instructions for Treatment How to Access Health Informa tion Online using Patient Portal and [employer] Apps Indication:Current nonsmoker (Renamed from Current non-smoker) Start:09-Dec-2020 Instruction Type:Patient Education Patient Instructions Indication:Current nonsmoker (Renamed from Current non-smoker) Start:09-Dec-2020 Instruction Type:Provider Instructions for Treatment How to access health informa tion online Indication:Current nonsmoker (Renamed from Current non-smoker) Start:16-Oct-2020 Instruction Type:Patient Education How to access health informa tion online - Detail Indication:Current nonsmoker (Renamed from Current non-smoker) Start:16-Oct-2020 Instruction Type:Patient Education Patient Instructions Indication:Current nonsmoker (Renamed from Current non-smoker) Start:16-Oct-2020 Instruction Type:Provider Instructions for Treatment How to access health informa tion online Indication:BMI 38.0-38.9,adult Start:15-Dec-2018 Instruction Type:Patient Education How to access health informa tion online - Detail Indication:BMI 38.0-38.9,adult Start:15-Dec-2018 Instruction Type:Patient Education Patient Instructions Indication:BMI 38.0-38.9,adult Start:15-Dec-2018 Instruction Type:Provider Instructions for Treatment Patient Instructions Indication:Encounter for annual general medical examination with abnormal findings in adult Start:09-Sep-2018 Instruction Type:Provider Instructions for Treatment obesity counseling Indication:Uncontrolled type 2 diabetes mellitus Start:09-Sep-2018 Instruction Type:Provider Instructions for Treatment How to access health informa tion online Indication:Dysuria Start:24-Aug-2018 Instruction Type:Patient Education How to access health informa tion online - Detail Indication:Dysuria Start:24-Aug-2018 Instruction Type:Patient Education Patient Instructions Indication:Dysuria Start:24-Aug-2018 Instruction Type:Provider Instructions for Treatment How to access health informa tion online Indication:Uncontrolled type 2 diabetes mellitus Start:05-May-2018 Instruction Type:Patient Education How to access health informa tion online - Detail Indication:Uncontrolled type 2 diabetes mellitus Start:05-May-2018 Instruction Type:Patient Education Patient Instructions Indication:Uncontrolled type 2 diabetes mellitus Start:05-May-2018 Instruction Type:Provider Instructions for Treatment How to access health informa tion online Indication:Diabetes type 2, controlled Start:30-Dec-2017 Instruction Type:Patient Education How to access health informa tion online - Detail Indication:Diabetes type 2, controlled Start:30-Dec-2017 Instruction Type:Patient Education Patient Instructions Indication:Diabetes type 2, controlled Start:30-Dec-2017 Instruction Type:Provider Instructions for Treatment How to access health informa tion online Indication:Low back pain Start:06-Dec-2017 Instruction Type:Patient Education How to access health informa tion online - Detail Indication:Low back pain Start:06-Dec-2017 Instruction Type:Patient Education Patient Instructions Indication:Low back pain Start:06-Dec-2017 Instruction Type:Provider Instructions for Treatment How to access health informa tion online Indication:Lower abdominal pain Start:03-Dec-2017 Instruction Type:Patient Education How to access health informa tion online - Detail Indication:Lower abdominal pain Start:03-Dec-2017 Instruction Type:Patient Education Patient Instructions Indication:Lower abdominal pain Start:03-Dec-2017 Instruction Type:Provider Instructions for Treatment How to access health informa tion online Indication:Diabetes type 2, controlled Start:24-Sep-2017 Instruction Type:Patient Education How to access health informa tion online - Detail Indication:Diabetes type 2, controlled Start:24-Sep-2017 Instruction Type:Patient Education Patient Instructions Indication:Diabetes type 2, controlled Start:24-Sep-2017 Instruction Type:Provider Instructions for Treatment How to access health informa tion online Indication:Diabetes type 2, controlled Start:20-May-2017 Instruction Type:Patient Education How to access health informa tion online - Detail Indication:Diabetes type 2, controlled Start:20-May-2017 Instruction Type:Patient Education Patient Instructions Indication:Diabetes type 2, controlled Start:20-May-2017 Instruction Type:Provider Instructions for Treatment How to access health informa tion online Indication:Current smoker Start:14-Jan-2017 Instruction Type:Patient Education How to access health informa tion online - Detail Indication:Current smoker Start:14-Jan-2017 Instruction Type:Patient Education Patient Instructions Indication:Current smoker Start:14-Jan-2017 Instruction Type:Provider Instructions for Treatment How to access health informa tion online Indication:Current nonsmoker (Renamed from Current non-smoker) Start:11-Jan-2017 Instruction Type:Patient Education How to access health informa tion online - Detail Indication:Current nonsmoker (Renamed from Current non-smoker) Start:11-Jan-2017 Instruction Type:Patient Education Patient Instructions Indication:Current nonsmoker (Renamed from Current non-smoker) Start:11-Jan-2017 Instruction Type:Provider Instructions for Treatment How to access health informa tion online Indication:Hypertension Start:09-Sep-2016 Instruction Type:Patient Education How to access health informa tion online - Detail Indication:Hypertension Start:09-Sep-2016 Instruction Type:Patient Education Patient Instructions Indication:Hypertension Start:09-Sep-2016 Instruction Type:Provider Instructions for Treatment How to access health informa tion online Indication:Hypertension Start:03-Apr-2016 Instruction Type:Patient Education How to access health informa tion online - Detail Indication:Hypertension Start:03-Apr-2016 Instruction Type:Patient Education Patient Instructions Indication:Hypertension Start:03-Apr-2016 Instruction Type:Provider Instructions for Treatment How to access health informa tion online Indication:Leg wound, left Start:08-Oct-2015 Instruction Type:Patient Education How to access health informa tion online - Detail Indication:Leg wound, left Start:08-Oct-2015 Instruction Type:Patient Education Patient Instructions Indication:Leg wound, left Start:08-Oct-2015 Instruction Type:Provider Instructions for Treatment How to access health informa tion online Indication:Hypertension Start:20-Sep-2015 Instruction Type:Patient Education How to access health informa tion online - Detail Indication:Hypertension Start:20-Sep-2015 Instruction Type:Patient Education Patient Instructions Indication:Hypertension Start:20-Sep-2015 Instruction Type:Provider Instructions for Treatment Patient Instructions Indication:Hypertension Start:10-May-2015 Instruction Type:Provider Instructions for Treatment Patient Instructions Indication:Infection Start:28-Aug-2013 Instruction Type:Provider Instructions for Treatment Patient Instructions Indication:Infection Start:25-Aug-2013 Instruction Type:Provider Instructions for Treatment Patient Instructions Indication:Infection Start:24-Aug-2013 Instruction Type:Provider Instructions for Treatment Patient Instructions Indication:Infection Start:23-Aug-2013 Instruction Type:Provider Instructions for Treatment Patient Instructions Indication:Hypertension Start:30-Jun-2013 Instruction Type:Provider Instructions for Treatment Patient Instructions Indication:Arthritis Start:30-Jun-2013 Instruction Type:Provider Instructions for Treatment Name Dates Details Patient Instructions Indication:Current nonsmoker (Renamed from Current non-smoker) Start:10-Feb-2021 Instruction Type:Provider Instructions for Treatment How to Access Health Informa tion Online using Patient Portal and [employer] Apps Indication:Current nonsmoker (Renamed from Current non-smoker) Start:10-Feb-2021 Instruction Type:Patient Education How to Access Health Informa tion Online using Patient Portal and [employer] Apps Indication:Current nonsmoker (Renamed from Current non-smoker) Start:25-Dec-2020 Instruction Type:Patient Education Patient Instructions Indication:Current nonsmoker (Renamed from Current non-smoker) Start:25-Dec-2020 Instruction Type:Provider Instructions for Treatment obesity counseling Indication:Uncontrolled type 2 diabetes mellitus Start:09-Dec-2020 Instruction Type:Provider Instructions for Treatment How to Access Health Informa tion Online using Patient Portal and [employer] Apps Indication:Current nonsmoker (Renamed from Current non-smoker) Start:09-Dec-2020 Instruction Type:Patient Education Patient Instructions Indication:Current nonsmoker (Renamed from Current non-smoker) Start:09-Dec-2020 Instruction Type:Provider Instructions for Treatment How to access health informa tion online Indication:Current nonsmoker (Renamed from Current non-smoker) Start:16-Oct-2020 Instruction Type:Patient Education How to access health informa tion online - Detail Indication:Current nonsmoker (Renamed from Current non-smoker) Start:16-Oct-2020 Instruction Type:Patient Education Patient Instructions Indication:Current nonsmoker (Renamed from Current non-smoker) Start:16-Oct-2020 Instruction Type:Provider Instructions for Treatment How to access health informa tion online Indication:BMI 38.0-38.9,adult Start:15-Dec-2018 Instruction Type:Patient Education How to access health informa tion online - Detail Indication:BMI 38.0-38.9,adult Start:15-Dec-2018 Instruction Type:Patient Education Patient Instructions Indication:BMI 38.0-38.9,adult Start:15-Dec-2018 Instruction Type:Provider Instructions for Treatment Patient Instructions Indication:Encounter for annual general medical examination with abnormal findings in adult Start:09-Sep-2018 Instruction Type:Provider Instructions for Treatment obesity counseling Indication:Uncontrolled type 2 diabetes mellitus Start:09-Sep-2018 Instruction Type:Provider Instructions for Treatment How to access health informa tion online Indication:Dysuria Start:24-Aug-2018 Instruction Type:Patient Education How to access health informa tion online - Detail Indication:Dysuria Start:24-Aug-2018 Instruction Type:Patient Education Patient Instructions Indication:Dysuria Start:24-Aug-2018 Instruction Type:Provider Instructions for Treatment How to access health informa tion online Indication:Uncontrolled type 2 diabetes mellitus Start:05-May-2018 Instruction Type:Patient Education How to access health informa tion online - Detail Indication:Uncontrolled type 2 diabetes mellitus Start:05-May-2018 Instruction Type:Patient Education Patient Instructions Indication:Uncontrolled type 2 diabetes mellitus Start:05-May-2018 Instruction Type:Provider Instructions for Treatment How to access health informa tion online Indication:Diabetes type 2, controlled Start:30-Dec-2017 Instruction Type:Patient Education How to access health informa tion online - Detail Indication:Diabetes type 2, controlled Start:30-Dec-2017 Instruction Type:Patient Education Patient Instructions Indication:Diabetes type 2, controlled Start:30-Dec-2017 Instruction Type:Provider Instructions for Treatment How to access health informa tion online Indication:Low back pain Start:06-Dec-2017 Instruction Type:Patient Education How to access health informa tion online - Detail Indication:Low back pain Start:06-Dec-2017 Instruction Type:Patient Education Patient Instructions Indication:Low back pain Start:06-Dec-2017 Instruction Type:Provider Instructions for Treatment How to access health informa tion online Indication:Lower abdominal pain Start:03-Dec-2017 Instruction Type:Patient Education How to access health informa tion online - Detail Indication:Lower abdominal pain Start:03-Dec-2017 Instruction Type:Patient Education Patient Instructions Indication:Lower abdominal pain Start:03-Dec-2017 Instruction Type:Provider Instructions for Treatment How to access health informa tion online Indication:Diabetes type 2, controlled Start:24-Sep-2017 Instruction Type:Patient Education How to access health informa tion online - Detail Indication:Diabetes type 2, controlled Start:24-Sep-2017 Instruction Type:Patient Education Patient Instructions Indication:Diabetes type 2, controlled Start:24-Sep-2017 Instruction Type:Provider Instructions for Treatment How to access health informa tion online Indication:Diabetes type 2, controlled Start:20-May-2017 Instruction Type:Patient Education How to access health informa tion online - Detail Indication:Diabetes type 2, controlled Start:20-May-2017 Instruction Type:Patient Education Patient Instructions Indication:Diabetes type 2, controlled Start:20-May-2017 Instruction Type:Provider Instructions for Treatment How to access health informa tion online Indication:Current smoker Start:14-Jan-2017 Instruction Type:Patient Education How to access health informa tion online - Detail Indication:Current smoker Start:14-Jan-2017 Instruction Type:Patient Education Patient Instructions Indication:Current smoker Start:14-Jan-2017 Instruction Type:Provider Instructions for Treatment How to access health informa tion online Indication:Current nonsmoker (Renamed from Current non-smoker) Start:11-Jan-2017 Instruction Type:Patient Education How to access health informa tion online - Detail Indication:Current nonsmoker (Renamed from Current non-smoker) Start:11-Jan-2017 Instruction Type:Patient Education Patient Instructions Indication:Current nonsmoker (Renamed from Current non-smoker) Start:11-Jan-2017 Instruction Type:Provider Instructions for Treatment How to access health informa tion online Indication:Hypertension Start:09-Sep-2016 Instruction Type:Patient Education How to access health informa tion online - Detail Indication:Hypertension Start:09-Sep-2016 Instruction Type:Patient Education Patient Instructions Indication:Hypertension Start:09-Sep-2016 Instruction Type:Provider Instructions for Treatment How to access health informa tion online Indication:Hypertension Start:03-Apr-2016 Instruction Type:Patient Education How to access health informa tion online - Detail Indication:Hypertension Start:03-Apr-2016 Instruction Type:Patient Education Patient Instructions Indication:Hypertension Start:03-Apr-2016 Instruction Type:Provider Instructions for Treatment How to access health informa tion online Indication:Leg wound, left Start:08-Oct-2015 Instruction Type:Patient Education How to access health informa tion online - Detail Indication:Leg wound, left Start:08-Oct-2015 Instruction Type:Patient Education Patient Instructions Indication:Leg wound, left Start:08-Oct-2015 Instruction Type:Provider Instructions for Treatment How to access health informa tion online Indication:Hypertension Start:20-Sep-2015 Instruction Type:Patient Education How to access health informa tion online - Detail Indication:Hypertension Start:20-Sep-2015 Instruction Type:Patient Education Patient Instructions Indication:Hypertension Start:20-Sep-2015 Instruction Type:Provider Instructions for Treatment Patient Instructions Indication:Hypertension Start:10-May-2015 Instruction Type:Provider Instructions for Treatment Patient Instructions Indication:Infection Start:28-Aug-2013 Instruction Type:Provider Instructions for Treatment Patient Instructions Indication:Infection Start:25-Aug-2013 Instruction Type:Provider Instructions for Treatment Patient Instructions Indication:Infection Start:24-Aug-2013 Instruction Type:Provider Instructions for Treatment Patient Instructions Indication:Infection Start:23-Aug-2013 Instruction Type:Provider Instructions for Treatment Patient Instructions Indication:Hypertension Start:30-Jun-2013 Instruction Type:Provider Instructions for Treatment Patient Instructions Indication:Arthritis Start:30-Jun-2013 Instruction Type:Provider Instructions for Treatment Name Dates Details How to access health informa tion online Indication:BMI 38.0-38.9,adult Start:15-Dec-2018 Instruction Type:Patient Education How to access health informa tion online - Detail Indication:BMI 38.0-38.9,adult Start:15-Dec-2018 Instruction Type:Patient Education Patient Instructions Indication:BMI 38.0-38.9,adult Start:15-Dec-2018 Instruction Type:Provider Instructions for Treatment Patient Instructions Indication:Encounter for annual general medical examination with abnormal findings in adult Start:09-Sep-2018 Instruction Type:Provider Instructions for Treatment obesity counseling Indication:Uncontrolled type 2 diabetes mellitus Start:09-Sep-2018 Instruction Type:Provider Instructions for Treatment How to access health informa tion online Indication:Dysuria Start:24-Aug-2018 Instruction Type:Patient Education How to access health informa tion online - Detail Indication:Dysuria Start:24-Aug-2018 Instruction Type:Patient Education Patient Instructions Indication:Dysuria Start:24-Aug-2018 Instruction Type:Provider Instructions for Treatment How to access health informa tion online Indication:Uncontrolled type 2 diabetes mellitus Start:05-May-2018 Instruction Type:Patient Education How to access health informa tion online - Detail Indication:Uncontrolled type 2 diabetes mellitus Start:05-May-2018 Instruction Type:Patient Education Patient Instructions Indication:Uncontrolled type 2 diabetes mellitus Start:05-May-2018 Instruction Type:Provider Instructions for Treatment How to access health informa tion online Indication:Diabetes type 2, controlled Start:30-Dec-2017 Instruction Type:Patient Education How to access health informa tion online - Detail Indication:Diabetes type 2, controlled Start:30-Dec-2017 Instruction Type:Patient Education Patient Instructions Indication:Diabetes type 2, controlled Start:30-Dec-2017 Instruction Type:Provider Instructions for Treatment How to access health informa tion online Indication:Low back pain Start:06-Dec-2017 Instruction Type:Patient Education How to access health informa tion online - Detail Indication:Low back pain Start:06-Dec-2017 Instruction Type:Patient Education Patient Instructions Indication:Low back pain Start:06-Dec-2017 Instruction Type:Provider Instructions for Treatment How to access health informa tion online Indication:Lower abdominal pain Start:03-Dec-2017 Instruction Type:Patient Education How to access health informa tion online - Detail Indication:Lower abdominal pain Start:03-Dec-2017 Instruction Type:Patient Education Patient Instructions Indication:Lower abdominal pain Start:03-Dec-2017 Instruction Type:Provider Instructions for Treatment How to access health informa tion online Indication:Diabetes type 2, controlled Start:24-Sep-2017 Instruction Type:Patient Education How to access health informa tion online - Detail Indication:Diabetes type 2, controlled Start:24-Sep-2017 Instruction Type:Patient Education Patient Instructions Indication:Diabetes type 2, controlled Start:24-Sep-2017 Instruction Type:Provider Instructions for Treatment How to access health informa tion online Indication:Diabetes type 2, controlled Start:20-May-2017 Instruction Type:Patient Education How to access health informa tion online - Detail Indication:Diabetes type 2, controlled Start:20-May-2017 Instruction Type:Patient Education Patient Instructions Indication:Diabetes type 2, controlled Start:20-May-2017 Instruction Type:Provider Instructions for Treatment How to access health informa tion online Indication:Current smoker Start:14-Jan-2017 Instruction Type:Patient Education How to access health informa tion online - Detail Indication:Current smoker Start:14-Jan-2017 Instruction Type:Patient Education Patient Instructions Indication:Current smoker Start:14-Jan-2017 Instruction Type:Provider Instructions for Treatment How to access health informa tion online Indication:Current nonsmoker (Renamed from Current non-smoker) Start:11-Jan-2017 Instruction Type:Patient Education How to access health informa tion online - Detail Indication:Current nonsmoker (Renamed from Current non-smoker) Start:11-Jan-2017 Instruction Type:Patient Education Patient Instructions Indication:Current nonsmoker (Renamed from Current non-smoker) Start:11-Jan-2017 Instruction Type:Provider Instructions for Treatment How to access health informa tion online Indication:Hypertension Start:09-Sep-2016 Instruction Type:Patient Education How to access health informa tion online - Detail Indication:Hypertension Start:09-Sep-2016 Instruction Type:Patient Education Patient Instructions Indication:Hypertension Start:09-Sep-2016 Instruction Type:Provider Instructions for Treatment How to access health informa tion online Indication:Hypertension Start:03-Apr-2016 Instruction Type:Patient Education How to access health informa tion online - Detail Indication:Hypertension Start:03-Apr-2016 Instruction Type:Patient Education Patient Instructions Indication:Hypertension Start:03-Apr-2016 Instruction Type:Provider Instructions for Treatment How to access health informa tion online Indication:Leg wound, left Start:08-Oct-2015 Instruction Type:Patient Education How to access health informa tion online - Detail Indication:Leg wound, left Start:08-Oct-2015 Instruction Type:Patient Education Patient Instructions Indication:Leg wound, left Start:08-Oct-2015 Instruction Type:Provider Instructions for Treatment How to access health informa tion online Indication:Hypertension Start:20-Sep-2015 Instruction Type:Patient Education How to access health informa tion online - Detail Indication:Hypertension Start:20-Sep-2015 Instruction Type:Patient Education Patient Instructions Indication:Hypertension Start:20-Sep-2015 Instruction Type:Provider Instructions for Treatment Patient Instructions Indication:Hypertension Start:10-May-2015 Instruction Type:Provider Instructions for Treatment Patient Instructions Indication:Infection Start:28-Aug-2013 Instruction Type:Provider Instructions for Treatment Patient Instructions Indication:Infection Start:25-Aug-2013 Instruction Type:Provider Instructions for Treatment Patient Instructions Indication:Infection Start:24-Aug-2013 Instruction Type:Provider Instructions for Treatment Patient Instructions Indication:Infection Start:23-Aug-2013 Instruction Type:Provider Instructions for Treatment Patient Instructions Indication:Hypertension Start:30-Jun-2013 Instruction Type:Provider Instructions for Treatment Patient Instructions Indication:Arthritis Start:30-Jun-2013 Instruction Type:Provider Instructions for Treatment Name Dates Details How to Access Health Informa tion Online using Patient Portal and [employer] Apps Indication:Current nonsmoker (Renamed from Current non-smoker) Start:20-Feb-2021 Instruction Type:Patient Education Patient Instructions Indication:Current nonsmoker (Renamed from Current non-smoker) Start:20-Feb-2021 Instruction Type:Provider Instructions for Treatment Patient Instructions Indication:Current nonsmoker (Renamed from Current non-smoker) Start:10-Feb-2021 Instruction Type:Provider Instructions for Treatment How to Access Health Informa tion Online using Patient Portal and [employer] Apps Indication:Current nonsmoker (Renamed from Current non-smoker) Start:10-Feb-2021 Instruction Type:Patient Education How to Access Health Informa tion Online using Patient Portal and [employer] Apps Indication:Current nonsmoker (Renamed from Current non-smoker) Start:25-Dec-2020 Instruction Type:Patient Education Patient Instructions Indication:Current nonsmoker (Renamed from Current non-smoker) Start:25-Dec-2020 Instruction Type:Provider Instructions for Treatment obesity counseling Indication:Uncontrolled type 2 diabetes mellitus Start:09-Dec-2020 Instruction Type:Provider Instructions for Treatment How to Access Health Informa tion Online using Patient Portal and [employer] Apps Indication:Current nonsmoker (Renamed from Current non-smoker) Start:09-Dec-2020 Instruction Type:Patient Education Patient Instructions Indication:Current nonsmoker (Renamed from Current non-smoker) Start:09-Dec-2020 Instruction Type:Provider Instructions for Treatment How to access health informa tion online Indication:Current nonsmoker (Renamed from Current non-smoker) Start:16-Oct-2020 Instruction Type:Patient Education How to access health informa tion online - Detail Indication:Current nonsmoker (Renamed from Current non-smoker) Start:16-Oct-2020 Instruction Type:Patient Education Patient Instructions Indication:Current nonsmoker (Renamed from Current non-smoker) Start:16-Oct-2020 Instruction Type:Provider Instructions for Treatment How to access health informa tion online Indication:BMI 38.0-38.9,adult Start:15-Dec-2018 Instruction Type:Patient Education How to access health informa tion online - Detail Indication:BMI 38.0-38.9,adult Start:15-Dec-2018 Instruction Type:Patient Education Patient Instructions Indication:BMI 38.0-38.9,adult Start:15-Dec-2018 Instruction Type:Provider Instructions for Treatment Patient Instructions Indication:Encounter for annual general medical examination with abnormal findings in adult Start:09-Sep-2018 Instruction Type:Provider Instructions for Treatment obesity counseling Indication:Uncontrolled type 2 diabetes mellitus Start:09-Sep-2018 Instruction Type:Provider Instructions for Treatment How to access health informa tion online Indication:Dysuria Start:24-Aug-2018 Instruction Type:Patient Education How to access health informa tion online - Detail Indication:Dysuria Start:24-Aug-2018 Instruction Type:Patient Education Patient Instructions Indication:Dysuria Start:24-Aug-2018 Instruction Type:Provider Instructions for Treatment How to access health informa tion online Indication:Uncontrolled type 2 diabetes mellitus Start:05-May-2018 Instruction Type:Patient Education How to access health informa tion online - Detail Indication:Uncontrolled type 2 diabetes mellitus Start:05-May-2018 Instruction Type:Patient Education Patient Instructions Indication:Uncontrolled type 2 diabetes mellitus Start:05-May-2018 Instruction Type:Provider Instructions for Treatment How to access health informa tion online Indication:Diabetes type 2, controlled Start:30-Dec-2017 Instruction Type:Patient Education How to access health informa tion online - Detail Indication:Diabetes type 2, controlled Start:30-Dec-2017 Instruction Type:Patient Education Patient Instructions Indication:Diabetes type 2, controlled Start:30-Dec-2017 Instruction Type:Provider Instructions for Treatment How to access health informa tion online Indication:Low back pain Start:06-Dec-2017 Instruction Type:Patient Education How to access health informa tion online - Detail Indication:Low back pain Start:06-Dec-2017 Instruction Type:Patient Education Patient Instructions Indication:Low back pain Start:06-Dec-2017 Instruction Type:Provider Instructions for Treatment How to access health informa tion online Indication:Lower abdominal pain Start:03-Dec-2017 Instruction Type:Patient Education How to access health informa tion online - Detail Indication:Lower abdominal pain Start:03-Dec-2017 Instruction Type:Patient Education Patient Instructions Indication:Lower abdominal pain Start:03-Dec-2017 Instruction Type:Provider Instructions for Treatment How to access health informa tion online Indication:Diabetes type 2, controlled Start:24-Sep-2017 Instruction Type:Patient Education How to access health informa tion online - Detail Indication:Diabetes type 2, controlled Start:24-Sep-2017 Instruction Type:Patient Education Patient Instructions Indication:Diabetes type 2, controlled Start:24-Sep-2017 Instruction Type:Provider Instructions for Treatment How to access health informa tion online Indication:Diabetes type 2, controlled Start:20-May-2017 Instruction Type:Patient Education How to access health informa tion online - Detail Indication:Diabetes type 2, controlled Start:20-May-2017 Instruction Type:Patient Education Patient Instructions Indication:Diabetes type 2, controlled Start:20-May-2017 Instruction Type:Provider Instructions for Treatment How to access health informa tion online Indication:Current smoker Start:14-Jan-2017 Instruction Type:Patient Education How to access health informa tion online - Detail Indication:Current smoker Start:14-Jan-2017 Instruction Type:Patient Education Patient Instructions Indication:Current smoker Start:14-Jan-2017 Instruction Type:Provider Instructions for Treatment How to access health informa tion online Indication:Current nonsmoker (Renamed from Current non-smoker) Start:11-Jan-2017 Instruction Type:Patient Education How to access health informa tion online - Detail Indication:Current nonsmoker (Renamed from Current non-smoker) Start:11-Jan-2017 Instruction Type:Patient Education Patient Instructions Indication:Current nonsmoker (Renamed from Current non-smoker) Start:11-Jan-2017 Instruction Type:Provider Instructions for Treatment How to access health informa tion online Indication:Hypertension Start:09-Sep-2016 Instruction Type:Patient Education How to access health informa tion online - Detail Indication:Hypertension Start:09-Sep-2016 Instruction Type:Patient Education Patient Instructions Indication:Hypertension Start:09-Sep-2016 Instruction Type:Provider Instructions for Treatment How to access health informa tion online Indication:Hypertension Start:03-Apr-2016 Instruction Type:Patient Education How to access health informa tion online - Detail Indication:Hypertension Start:03-Apr-2016 Instruction Type:Patient Education Patient Instructions Indication:Hypertension Start:03-Apr-2016 Instruction Type:Provider Instructions for Treatment How to access health informa tion online Indication:Leg wound, left Start:08-Oct-2015 Instruction Type:Patient Education How to access health informa tion online - Detail Indication:Leg wound, left Start:08-Oct-2015 Instruction Type:Patient Education Patient Instructions Indication:Leg wound, left Start:08-Oct-2015 Instruction Type:Provider Instructions for Treatment How to access health informa tion online Indication:Hypertension Start:20-Sep-2015 Instruction Type:Patient Education How to access health informa tion online - Detail Indication:Hypertension Start:20-Sep-2015 Instruction Type:Patient Education Patient Instructions Indication:Hypertension Start:20-Sep-2015 Instruction Type:Provider Instructions for Treatment Patient Instructions Indication:Hypertension Start:10-May-2015 Instruction Type:Provider Instructions for Treatment Patient Instructions Indication:Infection Start:28-Aug-2013 Instruction Type:Provider Instructions for Treatment Patient Instructions Indication:Infection Start:25-Aug-2013 Instruction Type:Provider Instructions for Treatment Patient Instructions Indication:Infection Start:24-Aug-2013 Instruction Type:Provider Instructions for Treatment Patient Instructions Indication:Infection Start:23-Aug-2013 Instruction Type:Provider Instructions for Treatment Patient Instructions Indication:Hypertension Start:30-Jun-2013 Instruction Type:Provider Instructions for Treatment Patient Instructions Indication:Arthritis Start:30-Jun-2013 Instruction Type:Provider Instructions for Treatment Name Dates Details How to Access Health Informa tion Online using Patient Portal and [employer] Apps Indication:Current nonsmoker (Renamed from Current non-smoker) Start:05-Mar-2021 Instruction Type:Patient Education Patient Instructions Indication:Current nonsmoker (Renamed from Current non-smoker) Start:05-Mar-2021 Instruction Type:Provider Instructions for Treatment How to Access Health Informa tion Online using Patient Portal and [employer] Apps Indication:Current nonsmoker (Renamed from Current non-smoker) Start:20-Feb-2021 Instruction Type:Patient Education Patient Instructions Indication:Current nonsmoker (Renamed from Current non-smoker) Start:20-Feb-2021 Instruction Type:Provider Instructions for Treatment Patient Instructions Indication:Current nonsmoker (Renamed from Current non-smoker) Start:10-Feb-2021 Instruction Type:Provider Instructions for Treatment How to Access Health Informa tion Online using Patient Portal and [employer] Apps Indication:Current nonsmoker (Renamed from Current non-smoker) Start:10-Feb-2021 Instruction Type:Patient Education How to Access Health Informa tion Online using Patient Portal and [employer] Apps Indication:Current nonsmoker (Renamed from Current non-smoker) Start:25-Dec-2020 Instruction Type:Patient Education Patient Instructions Indication:Current nonsmoker (Renamed from Current non-smoker) Start:25-Dec-2020 Instruction Type:Provider Instructions for Treatment obesity counseling Indication:Uncontrolled type 2 diabetes mellitus Start:09-Dec-2020 Instruction Type:Provider Instructions for Treatment How to Access Health Informa tion Online using Patient Portal and [employer] Apps Indication:Current nonsmoker (Renamed from Current non-smoker) Start:09-Dec-2020 Instruction Type:Patient Education Patient Instructions Indication:Current nonsmoker (Renamed from Current non-smoker) Start:09-Dec-2020 Instruction Type:Provider Instructions for Treatment How to access health informa tion online Indication:Current nonsmoker (Renamed from Current non-smoker) Start:16-Oct-2020 Instruction Type:Patient Education How to access health informa tion online - Detail Indication:Current nonsmoker (Renamed from Current non-smoker) Start:16-Oct-2020 Instruction Type:Patient Education Patient Instructions Indication:Current nonsmoker (Renamed from Current non-smoker) Start:16-Oct-2020 Instruction Type:Provider Instructions for Treatment How to access health informa tion online Indication:BMI 38.0-38.9,adult Start:15-Dec-2018 Instruction Type:Patient Education How to access health informa tion online - Detail Indication:BMI 38.0-38.9,adult Start:15-Dec-2018 Instruction Type:Patient Education Patient Instructions Indication:BMI 38.0-38.9,adult Start:15-Dec-2018 Instruction Type:Provider Instructions for Treatment Patient Instructions Indication:Encounter for annual general medical examination with abnormal findings in adult Start:09-Sep-2018 Instruction Type:Provider Instructions for Treatment obesity counseling Indication:Uncontrolled type 2 diabetes mellitus Start:09-Sep-2018 Instruction Type:Provider Instructions for Treatment How to access health informa tion online Indication:Dysuria Start:24-Aug-2018 Instruction Type:Patient Education How to access health informa tion online - Detail Indication:Dysuria Start:24-Aug-2018 Instruction Type:Patient Education Patient Instructions Indication:Dysuria Start:24-Aug-2018 Instruction Type:Provider Instructions for Treatment How to access health informa tion online Indication:Uncontrolled type 2 diabetes mellitus Start:05-May-2018 Instruction Type:Patient Education How to access health informa tion online - Detail Indication:Uncontrolled type 2 diabetes mellitus Start:05-May-2018 Instruction Type:Patient Education Patient Instructions Indication:Uncontrolled type 2 diabetes mellitus Start:05-May-2018 Instruction Type:Provider Instructions for Treatment How to access health informa tion online Indication:Diabetes type 2, controlled Start:30-Dec-2017 Instruction Type:Patient Education How to access health informa tion online - Detail Indication:Diabetes type 2, controlled Start:30-Dec-2017 Instruction Type:Patient Education Patient Instructions Indication:Diabetes type 2, controlled Start:30-Dec-2017 Instruction Type:Provider Instructions for Treatment How to access health informa tion online Indication:Low back pain Start:06-Dec-2017 Instruction Type:Patient Education How to access health informa tion online - Detail Indication:Low back pain Start:06-Dec-2017 Instruction Type:Patient Education Patient Instructions Indication:Low back pain Start:06-Dec-2017 Instruction Type:Provider Instructions for Treatment How to access health informa tion online Indication:Lower abdominal pain Start:03-Dec-2017 Instruction Type:Patient Education How to access health informa tion online - Detail Indication:Lower abdominal pain Start:03-Dec-2017 Instruction Type:Patient Education Patient Instructions Indication:Lower abdominal pain Start:03-Dec-2017 Instruction Type:Provider Instructions for Treatment How to access health informa tion online Indication:Diabetes type 2, controlled Start:24-Sep-2017 Instruction Type:Patient Education How to access health informa tion online - Detail Indication:Diabetes type 2, controlled Start:24-Sep-2017 Instruction Type:Patient Education Patient Instructions Indication:Diabetes type 2, controlled Start:24-Sep-2017 Instruction Type:Provider Instructions for Treatment How to access health informa tion online Indication:Diabetes type 2, controlled Start:20-May-2017 Instruction Type:Patient Education How to access health informa tion online - Detail Indication:Diabetes type 2, controlled Start:20-May-2017 Instruction Type:Patient Education Patient Instructions Indication:Diabetes type 2, controlled Start:20-May-2017 Instruction Type:Provider Instructions for Treatment How to access health informa tion online Indication:Current smoker Start:14-Jan-2017 Instruction Type:Patient Education How to access health informa tion online - Detail Indication:Current smoker Start:14-Jan-2017 Instruction Type:Patient Education Patient Instructions Indication:Current smoker Start:14-Jan-2017 Instruction Type:Provider Instructions for Treatment How to access health informa tion online Indication:Current nonsmoker (Renamed from Current non-smoker) Start:11-Jan-2017 Instruction Type:Patient Education How to access health informa tion online - Detail Indication:Current nonsmoker (Renamed from Current non-smoker) Start:11-Jan-2017 Instruction Type:Patient Education Patient Instructions Indication:Current nonsmoker (Renamed from Current non-smoker) Start:11-Jan-2017 Instruction Type:Provider Instructions for Treatment How to access health informa tion online Indication:Hypertension Start:09-Sep-2016 Instruction Type:Patient Education How to access health informa tion online - Detail Indication:Hypertension Start:09-Sep-2016 Instruction Type:Patient Education Patient Instructions Indication:Hypertension Start:09-Sep-2016 Instruction Type:Provider Instructions for Treatment How to access health informa tion online Indication:Hypertension Start:03-Apr-2016 Instruction Type:Patient Education How to access health informa tion online - Detail Indication:Hypertension Start:03-Apr-2016 Instruction Type:Patient Education Patient Instructions Indication:Hypertension Start:03-Apr-2016 Instruction Type:Provider Instructions for Treatment How to access health informa tion online Indication:Leg wound, left Start:08-Oct-2015 Instruction Type:Patient Education How to access health informa tion online - Detail Indication:Leg wound, left Start:08-Oct-2015 Instruction Type:Patient Education Patient Instructions Indication:Leg wound, left Start:08-Oct-2015 Instruction Type:Provider Instructions for Treatment How to access health informa tion online Indication:Hypertension Start:20-Sep-2015 Instruction Type:Patient Education How to access health informa tion online - Detail Indication:Hypertension Start:20-Sep-2015 Instruction Type:Patient Education Patient Instructions Indication:Hypertension Start:20-Sep-2015 Instruction Type:Provider Instructions for Treatment Patient Instructions Indication:Hypertension Start:10-May-2015 Instruction Type:Provider Instructions for Treatment Patient Instructions Indication:Infection Start:28-Aug-2013 Instruction Type:Provider Instructions for Treatment Patient Instructions Indication:Infection Start:25-Aug-2013 Instruction Type:Provider Instructions for Treatment Patient Instructions Indication:Infection Start:24-Aug-2013 Instruction Type:Provider Instructions for Treatment Patient Instructions Indication:Infection Start:23-Aug-2013 Instruction Type:Provider Instructions for Treatment Patient Instructions Indication:Hypertension Start:30-Jun-2013 Instruction Type:Provider Instructions for Treatment Patient Instructions Indication:Arthritis Start:30-Jun-2013 Instruction Type:Provider Instructions for Treatment Chief Complaint and Reason for Visit Chief Complaint Gross hematuria Advance Directives No Advanced Directives Records Found Advance Directive Response Recorded Date/ Time Living Will No November 15 018 9:51pm Power of Director [employer] Database No November 15, 2018 9:51pm Summary Purpose Additional Source Comments Goals (unrecognized section and content) Goals may be documented in a n alternate sectionGoals may be documented in an alternate section INFORMATION SOURCE (unrecogn ized section and content) DATE CREATED AUTHOR 04/02/2023 [facility] In [facility] DATE CREATED AUTHOR AUTHOR'S ORGANIZ ATJUAN JOSÉ 04/05/2025 [facility] FOR RECORDS PERTAINING TO PATIENTS WHO ARE OR HAVE BEEN ENROLLED IN A CHEMICAL DEPENDENCY/SUBSTANCEABUSE PROGRAM, SOME INFORMATION MAY BE OMITTED. This clinical summary was aggregated from multiple sources. Caution should be exercised in using it in the provision of clinical care. This summary normalizes information from multiple sources, and as a consequence, information in this document may materially change the coding, format and clinical context of patient data. In addition, data may be omitted in some cases. CLINICAL DECISIONS SHOULD BE BASED ON THE PRIMARY CLINICAL RECORDS. [email or web address] provides no warranty or guarantee of the accuracy or completeness of information in this document.
[2025-05-20 09:34] VITALS: BP 153/74; PULSE 58; RESP 16; O2SAT 96
[2025-05-20 09:44] LABS: ALB/GLOB Ratio 1.3 RATIO (0.9-2.4); AST(SGOT) 33 U/L (<=31); Alanine Aminotransfer ALT/SGPT 24 U/L (<=34); Albumin, Serum 4.5 g/dL (3.4-4.8); Alkaline Phosphatase 115 U/L (35-104); Anion Gap 13 (5-15); BUN 19 mg/dL (4-19); BUN/Creat Ratio 20.7 RATIO (10-20); Calcium,Total 10.3 mg/dL (7.6-11.0); Carbon Dioxide 24.4 mmol/L (21.0-32.0); Chloride 102 mmol/L (98-108); Creatinine, Serum 0.89 mg/dL (0.70-1.20); EST Glomerular Filtration Rate 68 (>60); Estimated Creatinine Clearance 60.24 ml/min (50-250); Globulin 3.5 g/dL (2.2-4.2); Glucose 144 mg/dL (70-99); Sodium Level 140 mmol/L (133-145); Total Bilirubin 0.96 mg/dL (0.00-1.30)
[2025-05-20 10:54] VITALS: BP 137/81; PULSE 74; RESP 16; TEMP 36.8; O2SAT 98
== END 2025-05-20 10:57 | disposition home or self-care (01) ==
PROVIDERS: Emergency Provider Emergency Medicine; PCP Internal Medicine; Visit Provider Emergency Medicine
DX: R11.2 Nausea with vomiting, unspecified (principal); R19.7 Diarrhea, unspecified; I10 Essential (primary) hypertension; F17.200 Nicotine dependence, unspecified, uncomplicated; Z79.899 Other long term (current) drug therapy
CPT/HCPCS: 80053; 85027; 93005; 96365; 96375; 99285; J2405

== ENCOUNTER → 2025-07-31 | Outpatient (CLI) | payer MEDICARE, SELFPAY ==
--- NOTE | 2025-07-31 14:50 | BI_ITS ---
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 Remote excisional breast biopsy. TECHNIQUE: Procedure Code: [id number] Modality: MG Procedure: SCRN MAMM (CAD)W/SANDRA BILAT COMPARISON: Prior exam(s) dated December 31, 2020.. FINDINGS: TISSUE DENSITY: The breasts are almost entirely fatty. Bilateral Breast Mammographic Findings: No significant masses, calcifications or other abnormalities are identified. Stable small bilateral benign-appearing axillary lymph nodes. No suspicious masses, areas of developing architectural distortion, or suspicious calcifications. There has been no significant interval change. BI/SCRN MAMM (CAD)W/SANDRA BILAT IMPRESSION: Stable bilateral screening mammogram. OVERALL FINAL ASSESSMENT BI-RADS 2: BENIGN RECOMMENDATION: Routine annual follow-up in 1 Year A letter with findings and recommendations will be mailed to the patient. Reading Location: [place] [id number]
--- NOTE | 2025-07-31 15:03 | BD_ITS ---
PROCEDURE: DEXA BONE DENSITY STUDY 07/31/2025 REASON FOR EXAM: F, age 74 y/o . Postmenopausal. TECHNIQUE: Procedure Code: BDDBD Modality: DX Procedure: DEXA BONE DENSITY STUDY COMPARISON: December 31, 2020. FINDINGS: BMD and T-SCORES Lumbar spine: 1.009 g/cm2, T-score -0.4 Levels: L1 through L4 Change from prior: Loss of 7.4%. Left femoral neck: 0.460 g/cm2, T-score -3.5 Femoral neck comparison data not recommended for monitoring change. Left total hip: 0.681 g/cm2, T-score -2.1 Change from prior: Loss of 15.5%. Right femoral neck: 0.545 g/cm2, T-score -2.7 Femoral neck comparison data not recommended for monitoring change. Right total hip: 0.776 g/cm2, T-score -1.4 Change from prior: Loss of 7.9%. The World Health Organization has defined the following categories based on bone density: Normal bone density: T-score equal to or greater than -1.0 Osteopenia: T-score between -1.0 and -2.5 Osteoporosis: T-score equal to or less than -2.5 FRAX (or Comparable) Fracture Risk Assessment: 10 Year Probability of Fracture: Major Osteoporotic Fracture: 23% Hip Fracture: 12th% (Note: FRAX is not to be reported in setting of normal range bone density, osteoporosis on DEXA, known history of osteoporosis, prior osteoporotic hip or vertebral fracture, or for any patient undergoing pharmacological treatment for bone loss.) The National Osteoporosis Foundation (NOF) recommends pharmacological treatment for patients with a FRAX 10-year risk of 3% or higher for a hip fracture, or 20% or higher for a major osteoporotic fracture, to prevent osteoporosis and reduce fracture risk. The patient does meet the pharmacological treatment recommendations for prevention of osteoporosis. BD/Dexa Bone Density Study IMPRESSION: OSTEOPOROSIS. Recommend follow-up as clinically warranted. Reading [id number]
== END | disposition home or self-care (01) ==
PROVIDERS: PCP Internal Medicine; Referring Provider Internal Medicine; Visit Provider Internal Medicine
DX: Z12.31 Encounter for screening mammogram for malignant neoplasm of breast (principal); Z13.820 Encounter for screening for osteoporosis; Z78.0 Asymptomatic menopausal state
CPT/HCPCS: 77063; 77067; 77080